=== PATIENT | female | born 1960 | race Caucasian/White ===

== ENCOUNTER → 2017-07-01 09:19 | Outpatient (CLI) | payer MEDICARE, SELFPAY ==
--- NOTE | 2017-07-01 09:45 | RAD_ITS ---
STUDY: X-RAY - THORACIC SPINE REASON FOR EXAM: 3, 56 years old. Fall 2-3 months ago. Increasing thoracic spine pain. TECHNIQUE: 3 view(s) of the thoracic spine were obtained. COMPARISON: Report of thoracic spine images dated January 06, 2010. FINDINGS: There is generalized osteopenia. Normal kyphosis of the thoracic spine. There is no substantial scoliosis. There is a new anterior wedge compression deformity of the T11 vertebral body, age undetermined. There is diffuse intervertebral disc space narrowing with osteophyte formation unchanged. There is an epidural stimulator unchanged in position. There is anterior fusion of the lower cervical spine unchanged. RAD/Thoracic Spine 3 Views IMPRESSION: Osteopenia with diffuse spondylosis and spinal stimulator. New anterior wedge compression deformity of T11, age undetermined. Electronically Signed: Jose Ramon Ojeda MD at 17:55 EST , Service support ,
--- NOTE | 2017-07-01 09:45 | RAD_ITS ---
STUDY: X-RAY - LUMBAR SPINE REASON FOR EXAM: Female, 56 years old. Pain after fall 2-3 months ago. TECHNIQUE: 3 view(s) of the lumbar spine were obtained. COMPARISON: CT of the lumbar spine dated December 29, 2014. FINDINGS: There is generalized osteopenia. There is posterior fusion from L4 to S1 with anterior intervertebral fusion at L4-5 and L5-S1, unchanged in position or alignment. There is diffuse facet sclerosis. There is moderate spondylosis of the lower thoracic region. There is an epidural catheter present and unchanged. RAD/Lumbar Spine 2 or 3 Views IMPRESSION: Stable postsurgical changes without complications. Generalized osteopenia with thoracolumbar spondylosis unchanged. No new or acute pathology. Electronically Signed: Jose Ramon Ojeda MD at 16:59 EST , Service support ,
[2017-07-01 10:56] LABS: Absolute Lymphocyte Count 1.43 X10^3/ul (0.83-4.51); Absolute Neutrophil Count 3.2 X10^3/uL (2.0-7.7); Basophil# 0.01 X10^3/uL; Basophil% 0.2 % (0-1); Eosinophil# 0.04 X10^3/uL; Eosinophils% 0.7 % (0-5); Hematocrit 43.1 % (37-47); Hemoglobin 13.8 g/dl (12.0-15.0); Lymphocyte # 1.43 X10^3/ul (4.0); Lymphocyte % 26.3 % (19-41); Mean Corpuscular Hgb 30.3 pg (27.0-32.0); Mean Corpuscular Volume 94.7 fL (81-99); Mean Platelet Vol. 8.6 fl (6.2-12.0); Monocyte# 0.69 X10^3/uL; Monocyte% 12.7 % (0-10); Neutrophil # 3.24 X10^3/uL (2.7-7.7); Neutrophil % 59.7 % (47-70); Platelet Count 302 K/mm3 (150-450); RBC Distribution Width CV 15.4 % (11.6-14.6); RBC Distribution Width SD 52.8 fl (35.1-43.9); Red Blood Count 4.55 M/mm3 (4.2-5.4); White Blood Count 5.4 K/mm3 (4.4-11.0)
[2017-07-01 11:07] LABS: POSITIVE COUNT NO; POSITIVE DIFFERENTIAL NO; POSITIVE MORPHOLOGY NO
[2017-07-01 11:30] LABS: AST(SGOT) 20 U/L (15-37); Alanine Aminotransfer ALT/SGPT 39 U/L (13-56); Albumin, Serum 3.7 g/dL (3.2-5.0); Alkaline Phosphatase 120 U/L (45-117); Anion Gap 7 (5-15); BUN 24 mg/dL (7-18); BUN/Creat Ratio 35.2 RATIO (10-20); Calcium,Total 8.2 mg/dL (8.5-10.1); Chloride 102 mmol/L (98-107); Creatinine, Serum 0.68 mg/dL (0.55-1.02); EST Glomerular Filtration Rate 95 mL/min (>60); Est Glom Filt Rate - Afr Amer 115 mL/min (>60); Globulin 3.7 g/dL (2.2-4.2); Glucose 120 mg/dL (74-106); Potassium 4.4 mmol/L (3.5-5.1); Protein, Total 7.4 g/dL (6.4-8.2); Sodium Level 139 mmol/L (136-145)
== END ==
PROVIDERS: Family Provider Internal Medicine; PCP Internal Medicine; Visit Provider Anesthesiology Pain Medicine
DX: M85.88 Other specified disorders of bone density and structure, other site (principal); M47.895 Other spondylosis, thoracolumbar region; G95.29 Other cord compression; M47.897 Other spondylosis, lumbosacral region; M06.09 Rheumatoid arthritis without rheumatoid factor, multiple sites; M79.7 Fibromyalgia; M18.0 Bilateral primary osteoarthritis of first carpometacarpal joints; I87.2 Venous insufficiency (chronic) (peripheral); Z79.899 Other long term (current) drug therapy
CPT/HCPCS: 36415; 72072; 72100; 80053; 85025

== ENCOUNTER → 2018-01-08 15:06 | Outpatient (CLI) | payer MEDICARE, SELFPAY ==
[2018-01-08 17:28] LABS: Absolute Lymphocyte Count 1.87 X10^3/ul (0.83-4.51); Absolute Neutrophil Count 2.5 X10^3/uL (2.0-7.7); Basophil# 0.02 X10^3/uL; Basophil% 0.4 % (0-1); Eosinophil# 0.16 X10^3/uL; Eosinophils% 3.1 % (0-5); Hematocrit 40.1 % (37-47); Hemoglobin 12.2 g/dl (12.0-15.0); Lymphocyte # 1.87 X10^3/ul (4.0); Lymphocyte % 36.4 % (19-41); Mean Corp Hgb Conc 30.4 g/gl (32-36); Mean Corpuscular Hgb 29.3 pg (27.0-32.0); Mean Corpuscular Volume 96.2 fL (81-99); Mean Platelet Vol. 8.9 fl (6.2-12.0); Monocyte% 11.7 % (0-10); Neutrophil # 2.48 X10^3/uL (2.7-7.7); Neutrophil % 48.2 % (47-70); Platelet Count 207 K/mm3 (150-450); RBC Distribution Width CV 12.9 % (11.6-14.6); RBC Distribution Width SD 43.9 fl (35.1-43.9); Red Blood Count 4.17 M/mm3 (4.2-5.4); White Blood Count 5.1 K/mm3 (4.4-11.0)
[2018-01-08 17:31] LABS: POSITIVE COUNT NO; POSITIVE DIFFERENTIAL NO; POSITIVE MORPHOLOGY NO
[2018-01-08 18:20] LABS: AST(SGOT) 26 U/L (15-37); Alanine Aminotransfer ALT/SGPT 41 U/L (13-56); Albumin, Serum 3.4 g/dL (3.2-5.0); Alkaline Phosphatase 124 U/L (45-117); Anion Gap 9 (5-15); BUN 22 mg/dL (7-18); BUN/Creat Ratio 35.7 RATIO (10-20); Calcium,Total 8.3 mg/dL (8.5-10.1); Chloride 103 mmol/L (98-107); Creatinine, Serum 0.62 mg/dL (0.55-1.02); EST Glomerular Filtration Rate 107 mL/min (>60); Est Glom Filt Rate - Afr Amer 129 mL/min (>60); Globulin 3.5 g/dL (2.2-4.2); Glucose 93 mg/dL (74-106); Potassium 3.9 mmol/L (3.5-5.1); Protein, Total 6.9 g/dL (6.4-8.2); Sodium Level 143 mmol/L (136-145)
== END ==
PROVIDERS: Family Provider Internal Medicine; PCP Internal Medicine; Visit Provider Internal Medicine Rheumatology
DX: M06.09 Rheumatoid arthritis without rheumatoid factor, multiple sites (principal); M79.7 Fibromyalgia; M18.0 Bilateral primary osteoarthritis of first carpometacarpal joints; M47.897 Other spondylosis, lumbosacral region; I87.2 Venous insufficiency (chronic) (peripheral); Z79.899 Other long term (current) drug therapy
CPT/HCPCS: 36415; 80053; 85025

== ENCOUNTER 2018-04-07 12:32 | Day surgery (SDC) | payer MEDICARE, SELFPAY ==
--- NOTE | 2018-04-05 08:25 | PCM.HP.BLA ---
History and Physical Date of Admission: 04/07/18 HISTORY AND PHYSICAL ? Soraya Gurrola 1960 ? REFERRING PHYSICIAN: ??Keren Bustamante MD ? CHIEF COMPLAINT: ??Consult (colonoscopy) ? HPI: The patient is a 57 year old female referred for endoscopy. ?Soraya notes history intermittent left lower quadrant discomfort, but also notes history of chronic back issues and thought the discomfort might be related to her back, states will feel like a spasm occasionally. ?She denies any change in bowel habits, weight changes, blood in stools, or black tarry stools. ?She denies any family history of colon cancer. ?The patient NOTES a history of acid reflux issues. ??States has been taking a PPI for some time with no improvement in symptoms. ?Denies prior EGD. ?Soraya has not?undergone prior colonoscopy. ? ? The patient is being seen by me today at the request of Dr. Bustamante?for my opinion and advice regarding screening colonoscopy. ?Patient's past medical history is significant for fibromyalgia, rheumatoid arthritis, lupus, osteoarthrosis. ?She follows with Dr. Bustamante for her chronic medical conditions and also follows with pain management-previously saw Dr. Polanco and now in the process of switching to Dr. Escobar. ?She denies any chest pain or shortness of breath. ?Notes she has had some nausea with anesthesia in the past but denies any other adverse reaction. ? ? PAST MEDICAL HISTORY PAST MEDICAL HISTORY Diagnosis Date ? Adjustment disorder with depressed mood ? ? Climacteric ? ? Esophageal reflux 08/19/2006 ? Fibromyalgia ? ? Generalized osteoarthrosis, unspecified site ? ? Insomnia, unspecified 08/19/2006 ? Lupus erythematosus ? ? Rheumatoid arthritis(714.0) ? ? Dr. Rojas treating ? Sciatica 08/19/2006 ? ? PAST SURGICAL HISTORY PAST SURGICAL HISTORY Procedure Laterality Date ? LAMINECTOMY,CERVICAL ? ? ? Laminectomy, cervical, c5=6 ? LAMINECTOMY,LUMBAR ? ? ? Laminectomy, lumbar l5 and s1 ? LIGATE FALLOPIAN TUBE ? 1985 ? Tubal ligation - tubal ? LUMBAR SPINE FUSION,ANTER APPRCH ? 05/14/11 ? 2 levels ? PAST SURGICAL HISTORY OF ? 01/25/2009 ? Hysteroscopy D&C ? PAST SURGICAL HISTORY OF ? 01/25/2009 ? Novasure Ablation ? PAST SURGICAL HISTORY OF ? 04/18/2010 ? Discogram of spine. ? PAST SURGICAL HISTORY OF ? 09/2009 ? Spinal stimulator--NO MRIs !!!! ? REDUCTION OF LARGE BREAST ? 06/2010 ? ? CURRENT MEDICATIONS ? Current Outpatient Prescriptions: oxyCODONE-acetaminophen (PERCOCET) 5-325 mg tablet Take by mouth once daily as needed. predniSONE (DELTASONE) 5 mg tablet Take 1 tablet by mouth once daily as needed (Rheumatoid Arthritis flare). cetirizine (ZYRTEC) 10 mg tablet Take 1 tablet by mouth once daily. May take one additional tablet daily as needed hydrOXYzine HCl (ATARAX) 25 mg tablet Take 1 tablet by mouth every 8 hours as needed. PARoxetine (PAXIL) 10 mg tablet Take 1 tablet by mouth once daily. esomeprazole (NEXIUM) 40 mg capsule Take 1 capsule by mouth twice daily before meals. gabapentin (NEURONTIN) 600 mg tablet Take 2 tablets by mouth three times daily. flurandrenolide (CORDRAN) 0.05 % lotion Apply 1 application to affected area twice daily. folic acid-B6-B12 (FOLBEE) 2.5-25-1 mg tab Take 1 tablet by mouth once daily. pregabalin (LYRICA) 100 mg capsule Take 2 capsules by mouth once daily. Dr. Rojas morphine SR (MS CONTIN, ORAMORPH SR) 15 mg 12 hr tablet Take 1 tablet by mouth twice daily. Dr. Polanco tiZANidine HCl 6 mg capsule Take 6 mg by mouth three times daily. zolpidem (AMBIEN) 5 mg tablet Take 1 tablet by mouth at bedtime as needed for Sedation. methotrexate, PF, 25 mg/mL Soln 0.75 ml weekly () abatacept (ORENCIA) 125 mg/mL Syrg Inject ?subcutaneously. ? Vitamin E 400 unit ORAL Tab Take ?by mouth. CALCIUM CARBONATE/VITAMIN D3 (CALCIUM 600 + D ORAL) Take ?by mouth. peg 3350-Electrolytes (GOLYTELY) 236-22.74-6.74 -5.86 gram suspension Take 4,000 mL by mouth one time only for 1 dose. oxyCODONE-acetaminophen (PERCOCET) 5-325 mg tablet Take 1 tablet by mouth twice daily for 30 days.Earliest Fill Date: 11/28/17 ? No current facility-administered medications for this visit. ? ALLERGIES: Adhesive; Celexa [Citalopram]; Codeine; Doxycycline ? PERSONAL HISTORY: SOCIAL HISTORY Social History ??Marital status: Unknown ?Spouse name: ?Years of education: 12 ?Number of children: 0 ? 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 Social History Main Topics ??Smoking status: Former Smoker ?Packs/day: 0.50 ?Years: 22.00 ?Types: Cigarettes ?Quit date: 12/06/2016 ??Smokeless tobacco: Never Used ?Comment: 3 cigarettes per day ??Alcohol use: No ?Drug use: No ?Sexual activity: Yes ?Partners with: Male ? control/protection: Tubal Ligation ? ? FAMILY HISTORY: FAMILY HISTORY FAMILY HISTORY Problem Relation Age of Onset ? Thyroid Mother ?hypothyroid, obese, hypertension, ? Diabetes Mother ?type II ? Diabetes Father ?depression, hypertension,one lobe removed from lung valvue replacement; type 2 DM ? Hypertension Paternal Grandmother ?valvue replacement, colostomy bag ?because colon ca ? Thyroid Sister ?over active thyroid, hypertension ? REVIEW OF SYMPTOMS: ??The review of systems data was entered by the nurse and reviewed by me ? Nursing Notes: Keiry Muñoz RN ?02/27/2018 ?3:41 PM ?Signed REVIEW OF SYSTEMS: ?General:???The patient notes fatigue, denies weight loss, denies weight gain, notes feeling hot, and denies feelings of cold. ?Eyes: ?The patient denies glaucoma, denies eye injury/surgery, wears glasses or contacts. ?Ear/Nose/Throat: ?The patient denies allergies, denies hayfever, denies ear infections, and denies bloody noses. ?Cardiovascular: ?The patient denies chest pain, denies heart disease, denies high blood pressure,denies cardiac stent, denies prior heart attack, denies irregular heart beat, denies high cholesterol, ?denies poor circulation, denies heart failure, other cardiac issues, notes claudication, notes cold feet, denies peripheral arterial stent. ?Respiratory: ?The patient denies tuberculosis, denies pneumonia, denies frequent cough, denies pulmonary embolism, denies shortness of breath, and denies coughing up blood. ?Gastrointestinal: ?The patient denies difficulty swallowing, notes acid reflux, denies ulcers, denies vomiting, denies jaundice/hepatitis, denies gallbladder problems, denies black or tarry stools, denies hemorrhoids, denies bleeding from rectum, denies diverticulitis, denies constipation, denies diarrhea, denies loss of stool control, and denies hernias. ?Kidney/Bladder: ?The patient denies kidney stones, denies urine infections, and denies bloody urine. ?Skin: ?The patient denies a history of skin cancer, denies bleeding/changing moles, and denies a history of skin rash. ?Neurologic: ?The patient denies a history of epilepsy/convulsions, denies headaches, denies head/spinal injuries, and denies stroke/TIA. ?Psychiatric: ?The patient denies psychiatric medications, denies depression, and denies voices, denies substance abuse. ?Endocrine: ?The patient denies thyroid disorders, denies diabetes, and denies hormonal problems. ?Hematologic: ?The patient denies a history of bruising, denies bleeding, and denies anemia, denies blood clots. ?Infections: ?The patient notes a history of measles and mumps, denies rheumatic fever, and denies sexually transmitted diseases. ?Musculoskeletal: ?The patient notes back pain/injury, notes back problems, denies sciatica, denies knee/foot trouble, NOTES arthritis, or denies gout. ? ? When was patient's last Mammogram screening? 09/02/2017 ? ?Last Colonoscopy: ?never ? Keiyr Muñoz RN? I have confirmed and edited as necessary, the PFSH and ROS obtained by others. ? ? PHYSICAL EXAMINATION: ? General: ?The patient is 57 year old female, well nourished, well hydrated in no acute distress. ?The patient is oriented to time, place, and person. ? VITALS: Blood pressure 166/81, pulse 101, weight 91.8 kg (202 lb 6.4 oz), SpO2 97 %.?Body mass index is 35.85 kg/m?.? ? HEENT: ?Normal cephalic, ataumatic, pupils are equally round, sclera are anicteric, mucous membranes are moist, oropharynx is clear. ?Neck has no masses, asymmetry or lymphadenopathy. ? ? Respiratory: ?Clear to auscultation and percussion. ?Normal respiratory excursion and pattern. ? Cardiac: ?Examination is regular rate and rhythm. ?Normal S1/S2 ? Abdominal exam: ?Soft, nontender, ?with no palpable masses. ?No hepatosplenomegaly. ?No palpable hernias. ? Rectal exam: exam deferred ? Extremities: ?no clubbing, cyanosis or edema. ?No adenopathy. ? Other: ? LABORATORY VALUES: As Noted ? RADIOLOGIC STUDIES: ?As Noted ? ? Assessment ? IMPRESSION: encounter for screening colonoscopy. ?GERD resistant to PPI, would recommend EGD in addition to the colonoscopy ? PLAN: ?We will plan for upper and lower endoscopy. ?We discussed the risks and benefits of the planned endoscopy. ?I have informed the patient that complications can occur including failure to complete the endoscopy and perforation. ?The patient had the opportunity to ask questions concerning the planned endoscopy. ?My staff has also explained the procedure to the patient in understandable terms and has given the patient printed material concerning the procedure. ?The patient freely consents to surgery. ? I plan to use golytely bowel preparation for endoscopy ? The patient takes prescription medications which I feel decrease the chance of successful sedation. ?I therefore plan for monitored anesthetic care. ? Diagnoses: (K21.9) Gastroesophageal reflux disease, esophagitis presence not specified ?(primary encounter diagnosis) (Z12.11) Encounter for screening for malignant neoplasm of colon ? My findings have been communicated to Dr. Bustamante?via shared medical record. ?This note will be forwarded to Dr. Keren Bustamante MD. ?? Return to Clinic: The patient is instructed to follow-up with me 1 week post operatively. ? Meghna Chavarria PA-C
[2018-04-07] VITALS (8 sets, daily range): BP systolic 141–174; BP diastolic 74–109; PULSE 72–83; RESP 16–18; TEMP 35.8–36.2; O2SAT 95–98; BMI 36.1
--- NOTE | 2018-04-07 | GASB_PTH ---
PATIENT: PARADISE FAUST LOC: EN U#:[id number] AGE/SX: 57/F ROOM: RE04/07/[address]: Dr. Larry Guadalupe MD : 1960 BED: DIS: 04/07/2018 SPEC #: [id number] RECD: 04/08/18 13:14 STATUS: HUNTER DANICA #: [id number] KAILEE: 04/07/18 00:[address]: Larry Guadalupe DEPT: SURGICAL PATHOLOGY RECD BY: Connor León ENTERED: 04/08/18 13:14 SP TYPE: Gastric Bx OTHR DR: Dr. Keren Bustamante MD Tissues: A - Gastric mucous membrane B - Gastric mucous membrane Procedures: Surgery Specimen Level IV HEADER OPERATION: Colonoscopy, EGD ([facility] [place] PRE-OP DIAGNOSIS: GERD resistant to PPI, screening colonoscopy TISSUE SUBMITTED: A - Antrum biopsy for H. pylori and path, B - GE junction biopsy MICROSCOPIC DIAGNOSIS A. Gastric antrum, biopsy: Mild chronic gastritis. B. Gastroesophageal junction, biopsy: Mild chronic inflammation. CAMRON:maría 04/09/18 COMMENT A. The results of immunohistochemistry for Helicobacter pylori will be reported separately ([id number]). MICROSCOPIC DESCRIPTION Slides are reviewed. GROSS DESCRIPTION A - Received in fixative is one container labeled with the patient's name and designated antral biopsy for H. pylori and path. The specimen consists of one irregular fragment of light gilbert soft tissue that measures 0.3 x 0.2 x 0.1 cm. The specimen is totally submitted in one cassette. B - Received in fixative is one container labeled with the patient's name and designated GE junction biopsy. The specimen consists of one irregular fragment of light gilbert soft tissue that measures 0.6 x 0.1 x 0.1 cm. The specimen is totally submitted in one cassette. / CAMRON:maría 04/08/18 TC:3 CPT: 19276 x2
--- NOTE | 2018-04-07 14:00 | IMM_PTH ---
PATIENT: PARADISE FAUST LOC: EN U#:[id number] AGE/SX: 57/F ROOM: RE04/07/[address]: Dr. Larry Guadalupe MD : 1960 BED: DIS: 04/07/2018 SPEC #: [id number] RECD: 04/08/18 14:06 STATUS: HUNTER REOmayra #: [id number] KAILEE: 04/07/18 14:[address]: Larry Guadalupe DEPT: IMMUNOHISTOCHEMISTRY RECD BY: Shannon Lancaster ENTERED: 04/08/18 14:06 SP TYPE: IMMUNO OTHR DR: Dr. Keren Bustamante MD Tissues: A - Stomach, NOS Procedures: H Pylori (initial) PHYSICIAN & INSTITUTION [place] [id number] SPECIMEN INFORMATION: Tissue Source: A - Antrum biopsy Clinical Info: GERD, resistant to PPI, screening Specimen Number: [id number] CPT code: 37606 METHODOLOGY: Deparaffinized sections of prefer/formalin-fixed tissue or PAP/DQ stained slides are incubated with monoclonal/polyclonal antibodies/oligonucleotide probes. Localization is made via biotin free immunoperoxidase method. Appropriate controls are performed and reacted as expected. Results on target cell population are indicated in the following table: RESULTS: ANTIBODY / CLONE RESULT Block A H Pylori (polyclonal) negative These tests were developed and their performance characteristics determined by [facility]. They may not have been cleared or approved by the U.S. Food and Drug Administration. The FDA has determined that such clearance or approval is not necessary. INTERPRETATION: A. Antrum, biopsy: Negative for Helicobacter pylori organisms. AM:maría 04/09/18
--- NOTE | 2018-04-07 15:33 | OP.ENDO_ITS ---
Patient Name: Soraya Cedeño Procedure Date: 04/07/2018 2:26 PM Date of : 1960 Age: 57 Procedure: Upper GI endoscopy Indications: Follow-up of gastro-esophageal reflux disease Providers: Larry Guadalupe MD Medicines: Monitored Anesthesia Care Patient Profile: This is a 57 year old female. Refer to note in patient chart for documentation of history and physical. Complications: No immediate complications. Procedure: Pre-Anesthesia Assessment: - Prior to the procedure, a History and Physical was performed, and patient medications and allergies were reviewed. The patient is competent. The risks and benefits of the procedure and the sedation options and risks were discussed with the patient. All questions were answered and informed consent was obtained. Patient identification and proposed procedure were verified by the physician and the nurse in the procedure room. Mental Status Examination: alert and oriented. Airway Examination: normal oropharyngeal airway and neck mobility. Respiratory Examination: clear to auscultation. CV Examination: normal. Prophylactic Antibiotics: The patient does not require prophylactic antibiotics. Prior Anticoagulants: The patient has taken no previous anticoagulant or antiplatelet agents. ASA Grade Assessment: III - A patient with severe systemic disease. After reviewing the risks and benefits, the patient was deemed in satisfactory condition to undergo the procedure. The anesthesia plan was to use monitored anesthesia care (MAC). Immediately prior to administration of medications, the patient was re-assessed for adequacy to receive sedatives. The heart rate, respiratory rate, oxygen saturations, blood pressure, adequacy of pulmonary ventilation, and response to care were monitored throughout the procedure. The physical status of the patient was re-assessed after the procedure. After obtaining informed consent, the endoscope was passed under direct vision. Throughout the procedure, the patient's blood pressure, pulse, and oxygen saturations were monitored continuously. The gastroscope was introduced through the mouth, and advanced to the jejunum. The upper GI endoscopy was accomplished without difficulty. Scope In: 2:45:13 PM Scope Out: 2:49:01 PM Total Procedure Duration Time 0 hours 3 minutes 48 seconds Findings: The examined jejunum was normal. The examined duodenum was normal. Minimal inflammation characterized by erythema was found in the gastric antrum. Biopsies were taken with a cold forceps for histology. A medium-sized hiatal hernia was present. Non-severe esophagitis with no bleeding was found. Biopsies were taken with a cold forceps for histology. Impression: - Normal examined jejunum. - Normal examined duodenum. - Gastritis. Biopsied. - Medium-sized hiatal hernia. - Non-severe reflux esophagitis. Biopsied. Recommendation: - Return to physician automobile mechanic assistant in 1 week. - Continue present medications. Procedure Code(s): --- Professional --- 64830, Esophagogastroduodenoscopy, flexible, transoral; with biopsy, single or multiple CPT copyright 2017 [employer]. All rights reserved. The codes documented in this report are preliminary and upon childrens club attendant review may be revised to meet current compliance requirements. Larry Guadalupe MD 04/07/2018 3:33:26 PM This report has been signed electronically. Number of Addenda: 0 Note Initiated On: 04/07/2018 2:26 PM
--- NOTE | 2018-04-07 15:36 | OP.ENDO_ITS ---
Patient Name: Soraya Cedeño Procedure Date: 04/07/2018 2:50 PM Date of : 1960 Age: 57 Procedure: Colonoscopy Indications: Screening for colorectal malignant neoplasm Providers: Larry Guadalupe MD Medicines: Monitored Anesthesia Care Patient Profile: This is a 57 year old female. Refer to note in patient chart for documentation of history and physical. Last Colonoscopy: none. The patient's first colonoscopy is today. Complications: No immediate complications. Procedure: Pre-Anesthesia Assessment: - Prior to the procedure, a History and Physical was performed, and patient medications and allergies were reviewed. The patient is competent. The risks and benefits of the procedure and the sedation options and risks were discussed with the patient. All questions were answered and informed consent was obtained. Patient identification and proposed procedure were verified by the physician and the nurse in the procedure room. Mental Status Examination: alert and oriented. Airway Examination: normal oropharyngeal airway and neck mobility. Respiratory Examination: clear to auscultation. CV Examination: normal. Prophylactic Antibiotics: The patient does not require prophylactic antibiotics. Prior Anticoagulants: The patient has taken no previous anticoagulant or antiplatelet agents. ASA Grade Assessment: III - A patient with severe systemic disease. After reviewing the risks and benefits, the patient was deemed in satisfactory condition to undergo the procedure. The anesthesia plan was to use monitored anesthesia care (MAC). Immediately prior to administration of medications, the patient was re-assessed for adequacy to receive sedatives. The heart rate, respiratory rate, oxygen saturations, blood pressure, adequacy of pulmonary ventilation, and response to care were monitored throughout the procedure. The physical status of the patient was re-assessed after the procedure. After I obtained informed consent, the scope was passed under direct vision. Throughout the procedure, the patient's blood pressure, pulse, and oxygen saturations were monitored continuously. The colonoscope was introduced through the anus and advanced to the cecum, identified by the appendiceal orifice, ileocecal valve and palpation. The colonoscopy was performed without difficulty. The patient tolerated the procedure well. The quality of the bowel preparation was good. Scope In: 2:51:34 PM Scope Withdrawal Time 0 hours 18 minutes 0 seconds Scope Out: 3:25:38 PM Total Procedure Duration Time 0 hours 34 minutes 4 seconds Findings: The perianal and digital rectal examinations were normal. The entire examined colon appeared normal on direct and retroflexion views. Impression: - The entire examined colon is normal on direct and retroflexion views. - No specimens collected. Recommendation: - Discharge patient to home. - Resume previous diet. - Continue present medications. - Repeat colonoscopy in 10 years for screening purposes. Larry Guadalupe MD 04/07/2018 3:35:40 PM This report has been signed electronically. Number of Addenda: 0 Note Initiated On: 04/07/2018 2:50 PM
== END 2018-04-07 16:40 | disposition home or self-care (01) ==
LOC: EN 12:34 → AC 12:36
PROVIDERS: Family Provider Internal Medicine; PCP Internal Medicine; Referring Provider Surgery; Visit Provider Surgery
PROC: 0DJD8ZZ Inspection of Lower Intestinal Tract, Via Natural or Artificial Opening Endoscopic (ICD-10-PCS; CPT 45378; principal; 2018-04-07 13:55)
DX: K21.0 Gastro-esophageal reflux disease with esophagitis (principal); K29.50 Unspecified chronic gastritis without bleeding; K44.9 Diaphragmatic hernia without obstruction or gangrene; Z12.11 Encounter for screening for malignant neoplasm of colon; M79.7 Fibromyalgia; M15.9 Polyosteoarthritis, unspecified; M06.9 Rheumatoid arthritis, unspecified; M32.9 Systemic lupus erythematosus, unspecified; Z98.1 Arthrodesis status; Z79.891 Long term (current) use of opiate analgesic; Z79.899 Other long term (current) drug therapy; Z87.891 Personal history of nicotine dependence
CPT/HCPCS: 43239; G0121; 88305; 88342; J7120

== ENCOUNTER → 2018-04-08 11:30 | Outpatient (CLI) | payer MEDICARE, SELFPAY ==
[2018-04-07 12:56] VITALS: BMI 36.1
[2018-04-08 12:25] LABS: Absolute Lymphocyte Count 1.08 X10^3/ul (0.83-4.51); Absolute Neutrophil Count 2.3 X10^3/uL (2.0-7.7); Basophil# 0.01 X10^3/uL; Basophil% 0.3 % (0-1); Eosinophil# 0.09 X10^3/uL; Eosinophils% 2.3 % (0-5); Hematocrit 40.4 % (37-47); Hemoglobin 12.5 g/dl (12.0-15.0); Lymphocyte # 1.08 X10^3/ul (4.0); Lymphocyte % 27.6 % (19-41); Mean Corp Hgb Conc 30.9 g/gl (32-36); Mean Corpuscular Hgb 28.9 pg (27.0-32.0); Mean Corpuscular Volume 93.5 fL (81-99); Mean Platelet Vol. 8.2 fl (6.2-12.0); Monocyte# 0.42 X10^3/uL; Monocyte% 10.7 % (0-10); Neutrophil % 58.8 % (47-70); Platelet Count 211 K/mm3 (150-450); RBC Distribution Width CV 13.3 % (11.6-14.6); Red Blood Count 4.32 M/mm3 (4.2-5.4); White Blood Count 3.9 K/mm3 (4.4-11.0)
[2018-04-08 12:35] LABS: POSITIVE COUNT NO; POSITIVE DIFFERENTIAL NO; POSITIVE MORPHOLOGY NO
[2018-04-08 13:00] LABS: ALB/GLOB Ratio 0.9 RATIO (0.9-2.4); AST(SGOT) 18 U/L (15-37); Alanine Aminotransfer ALT/SGPT 32 U/L (13-56); Albumin, Serum 3.3 g/dL (3.2-5.0); Alkaline Phosphatase 124 U/L (45-117); Anion Gap 9 (5-15); BUN 19 mg/dL (7-18); BUN/Creat Ratio 28.4 RATIO (10-20); Calcium,Total 8.7 mg/dL (8.5-10.1); Chloride 104 mmol/L (98-107); Creatinine, Serum 0.67 mg/dL (0.55-1.02); EST Glomerular Filtration Rate 97 mL/min (>60); Est Glom Filt Rate - Afr Amer 118 mL/min (>60); Globulin 3.6 g/dL (2.2-4.2); Glucose 117 mg/dL (74-106); Potassium 3.6 mmol/L (3.5-5.1); Protein, Total 6.9 g/dL (6.4-8.2); Sodium Level 143 mmol/L (136-145)
--- OUTSIDE RECORDS SUMMARY | 2018-05-25 12:44 | XMS RPT_ITS ---
:1960 Author Organization [facility] Care Team Providers Name Role Phone CHERYL ADAMS (SQL REPORT WRITER) Referring Unavailable ADAMS, CHERYL (SQL REPORT WRITER) Referring Unavailable VIVIAN LIU (RD) Attending Unavailable ADAMSGAUTAMI (SQL REPORT WRITER) Referring Unavailable JERI ALEJANDRE ([facility]) Attending Unavailable ADAMSGAUTAMI (SQL REPORT WRITER) Referring Unavailable JERI ALEJANDRE ([facility]) Referring Unavailable ADAMS CHERYL (SQL REPORT WRITER) Referring Unavailable JERI ALEJANDRE ([facility]) Referring Unavailable JERI ALEJANDRE ([facility]) Referring Unavailable JERI ALEJANDRE ([facility]) Attending Unavailable JERI ALEJANDRE ([facility]) Referring Unavailable JERI ALEJANDRE ([facility]) Referring Unavailable JERI ALEJANDRE ([facility]) Referring Unavailable MEGHNA CHAVARRIA (PA) Attending Unavailable TALAMPAS, JAMES Dioni Referring Unavailable FRAN KRISHNAMURTHY Referring Unavailable ADAMS, CHERYL (SQL REPORT WRITER) Attending Unavailable TALAMPAS, JAMES D Referring Unavailable VellankiCodima Attending Unavailable Dorothea Rojas Referring Unavailable Talampas, James Primary Care Unavailable Felicitas Polanco Attending Unavailable Felicitas Polanco Referring Unavailable Talampas, James Primary Care Unavailable Dorothea Rojas Consulting Unavailable Dorothea Rojas Attending Unavailable Dorothea Rojas Referring Unavailable Talampas, James Primary Care Unavailable Justin Earl Attending Unavailable Justin Earl Referring Unavailable James Bustamante Primary Care Unavailable PROBLEMS PROBLEMS DATE TYPE CONDITION / CODE ATTENDING STATUS SOURCE 03/03/2018 Active Unknown / NA Active [facility] UNK(Unknown) [facility] Main [place] Repository 12/13/2017 Active Personal history of NA Active [facility] other diseases of the Clinic Main female genital tract [place] / Z87.42(ICD-10) Repository 12/12/2017 Active Pelvic and perineal NA Active [facility] pain / R10.2(ICD-10) Clinic Main [place] Rep[place] 12/12/2017 Active Left lower quadrant NA Active [facility] pain / R10.32(ICD-10) Clinic Main [place] Rep[place] 12/04/2017 Active Hyperlipidemia, NA Active [facility] unspecified / Clinic Main E78.5(ICD-10) [place] Repository 12/04/2017 Active Other abnormal NA Active [facility] glucose / Clinic Main R73.09(ICD-10) [place] Repository 12/04/2017 Active Encounter for NA Active [facility] therapeutic drug Clinic Main level monitoring / [place] Z51.81(ICD-10) Repository 12/04/2017 Active Other specified NA Active [facility] abnormal findings of Clinic Main blood chemistry / [place] R79.89(ICD-10) Repository 11/28/2017 Active Pain in left lower NA Active [facility] leg / M79.662(ICD-10) Clinic Main [place] Rep[place] 02/26/2017 Active Rheumatoid arthritis, NA Active [facility] unspecified / Clinic Main M06.9(ICD-10) [place] Repository 08/19/2006 Active Discoid lupus NA Active [facility] erythematosus / Clinic Main L93.0(ICD-10) [place] Repository 09/02/2017 Active Family history of NA Active [facility] other endocrine, Clinic Main nutritional and [place] metabolic diseases / Repository Z83.49(ICD-10) 09/02/2017 Active Encounter for NA Active [facility] screening for lipoid Clinic Main disorders / [place] Z13.220(ICD-10) Repository 09/02/2017 Active Encounter for NA Active [facility] screening for Clinic Main diabetes mellitus / [place] Z13.1(ICD-10) Repository 09/02/2017 Active Encounter for NA Active [facility] screening mammogram Clinic Main for malignant [place] neoplasm of breast / Repository Z12.31(ICD-10) 07/01/2017 Unknown M06.09 - Rheumatoid Basali, Ayman Active [place] arthritis without Community rheumatoid factor, [facility] multiple sites / Repository M06.09(ICD-10) 07/01/2017 Unknown Z79.899 - Other long Basali, Felicitas Active [place] term (current) drug [facility] therapy / Hospital Z79.899(ICD-10) Repository 07/01/2017 Unknown M79.7 - Fibromyalgia Basali, Felicitas Active [place] / M79.7(ICD-10) [facility] Hospital Repository 07/01/2017 Unknown M18.0 - Bilateral Basali, Ayman Active [place] primary Community osteoarthritis of Hospital first carpometacarpal Repository joints / M18.0(ICD-10) 07/01/2017 Unknown 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, 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, [facility] unspecified / Hospital M15.9(ICD-10) Repository 07/01/2017 Unknown M47.897 - Other Basali, Felicitas Active [place] spondylosis, [facility] lumbosacral region / Hospital M47.897(ICD-10) Repository 07/01/2017 Unknown 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, 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 [facility] (chronic) Hospital (peripheral) / Repository I87.2(ICD-10) PROCEDURES PROCEDURES No Procedure Records FoundRESULTS RESULTS CNOV Observed: 05/08/2018 Status: COMPLETED Source: [place] 1:00 PM [facility] REPOSITORY Office Visit (INTMWS) SORAYA FAUST ([id number]) 1960 F Date Time Provider Department 05/08/18 1:00 PM CHERYL ADAMS (LEONARD) INTMWS During your visit today, we recorded the following information about you: Pulse Respiration Blood pressure Weight 92/minute 16/minute 138/74 92.1 kg Cheryl Adams APRN.CNS 05/08/2018 1:58 PM Signed This note was created using NoteWriter. Subjective Soraya Aguilar Galileo is a 57 year old female. HPI She is a history of rheumatoid arthritis and lupus, followed by wet machine tender Dr. Rojas. She reports adequate pain relief for her lupus and rheumatoid arthritis. She is primarily concerned about pain in her cervical and lumbar spine today. She has history of previous cervical and lumbar spinal fusions. She has been seeing local pain management physicians who have recommended injections in her spine for back pain. She has not found these spinal injections have not been very helpful for pain. She continues to note restricted motion of her cervical spine along with pain and pain in her lumbar spine as well. Intermittently does use prednisone which helps a bit with pain. Continues with Tylenol as needed for pain. Gabapentin also help somewhat. She reports x-rays completed of cervical and lumbar spine last year, reports CT of spine at [facility] 2017. She cannot have MRIs completed due to an implanted pain device in her lumbar spine. Previous pain management doctors Dr. Polanco and Dr. Escobar at [facility]. She would like to have other options available to her, requests recommendations. See [employer] message date 05/05/2018. Review of Systems Constitutional: Negative for activity change, appetite change, chills, diaphoresis and fever. Respiratory: Negative for choking, chest tightness, shortness of breath and wheezing. Cardiovascular: Negative for chest pain, palpitations and leg swelling. Musculoskeletal: Positive for back pain. Neurological: Negative for dizziness, light-headedness and numbness. Objective BP 138/74 (BP Site: Left Arm, BP Position: Sitting, BP Cuff Size: Large Adult) Pulse 92 Resp 16 Wt 92.1 kg (203 lb) BMI 35.96 kg/m? Physical Exam Constitutional: She is oriented to person, place, and time. She appears well-developed and well-nourished. HENT: Head: Normocephalic. Neck: Muscular tenderness present. Decreased range of motion (cervical and lumbar spine) present. No edema and no erythema present. Cardiovascular: Normal rate and regular rhythm. Pulmonary/Chest: Effort normal. Musculoskeletal: She exhibits tenderness (cervical and lumbar spine) and deformity. Neurological: She is alert and oriented to person, place, and time. Skin: Skin is warm and dry. Psychiatric: She has a normal mood and affect. Nursing note and vitals reviewed. [facility] XR 2018 LUMBAR SPINE 2 OR 3 VIEWS Observed: 07/01/2017 9:45 AM Status: F Source: [facility] Imaging Services [address] [place] [address] Lumbar Spine 2 or 3 Views MR#: [id number] Acct: [id number] Name: SORAYA FAUST Rep #: [id number] : 1960 F 56 From: Jose Ramon Ojeda MD PCP: James Bustamante MD Status: REG CLI Study: Lumbar Spine 2 or 3 Views Date of Exam: 07/01/17 Exam# [id number] Ordering Dr: Felicitas Polanco MD STUDY: X-RAY - LUMBAR SPINE REASON FOR EXAM: Female, 56 years old. Pain after fall 2-3 months ago. TECHNIQUE: 3 view(s) of the lumbar spine were obtained. COMPARISON: CT of the lumbar spine dated December 29, 2014. FINDINGS: There is generalized osteopenia. There is posterior fusion from L4 to S1 with anterior intervertebral fusion at L4-5 and L5-S1, unchanged in position or alignment. There is diffuse facet sclerosis. There is moderate spondylosis of the lower thoracic region. There is an epidural catheter present and unchanged. RAD/Lumbar Spine 2 or 3 Views IMPRESSION: Stable postsurgical changes without complications. Generalized osteopenia with thoracolumbar spondylosis unchanged. No new or acute pathology. Electronically Signed: Jose Ramon Ojeda MD at 16:59 EST , Service support , CC: Felicitas Polanco MD; James Bustamante MD 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Signed THORACIC SPINE 3 VIEWS Observed: 07/01/2017 9:45 AM Status: F Source: [facility] Imaging Services [address] [place] [id number] Thoracic Spine 3 Views MR#: [id number] Acct: [id number] Name: SORAYA FAUST Rep #: [id number] : 1960 F 56 From: Jose Ramon Ojeda MD PCP: James Bustamante MD Status: REG CLI Study: Thoracic Spine 3 Views Date of Exam: 07/01/17 Exam# [id number] Ordering Dr: Felicitas Polanco MD STUDY: X-RAY - THORACIC SPINE REASON FOR EXAM: 3, 56 years old. Fall 2-3 months ago. Increasing thoracic spine pain. TECHNIQUE: 3 view(s) of the thoracic spine were obtained. COMPARISON: Report of thoracic spine images dated January 06, 2010. FINDINGS: There is generalized osteopenia. Normal kyphosis of the thoracic spine. There is no substantial scoliosis. There is a new anterior wedge compression deformity of the T11 vertebral body, age undetermined. There is diffuse intervertebral disc space narrowing with osteophyte formation unchanged. There is an epidural stimulator unchanged in position. There is anterior fusion of the lower cervical spine unchanged. RAD/Thoracic Spine 3 Views IMPRESSION: Osteopenia with diffuse spondylosis and spinal stimulator. New anterior wedge compression deformity of T11, age undetermined. 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Signed ALLERGIES Allergen Reactions - Adhesive Rash - Celexa [Citalopram] GI Upset - Codeine Motion kind of sickness - Doxycycline GI Upset Current Outpatient Prescriptions: nabumetone (RELAFEN) 750 mg tablet Take 750 mg by mouth twice daily. gabapentin (NEURONTIN) 600 mg tablet Take 2 tablets by mouth three times daily for 180 days. PARoxetine (PAXIL) 10 mg tablet Take 1 tablet by mouth once daily. esomeprazole (NEXIUM) 40 mg capsule TAKE ONE CAPSULE BY MOUTH TWICE DAILY BEFORE MEALS hydrOXYzine HCl (ATARAX) 25 mg tablet Take 2-3 tabs every 8 hours as needed for itching. cetirizine (ZYRTEC) 10 mg tablet Take 1 tablet by mouth once daily. May take one additional tablet daily as needed folic acid-B6-B12 (FOLBEE) 2.5-25-1 mg tab Take 1 tablet by mouth once daily. methotrexate, PF, 25 mg/mL Soln 0.75 ml weekly () abatacept (ORENCIA) 125 mg/mL Syrg Inject subcutaneously. Vitamin E 400 unit ORAL Tab Take by mouth. CALCIUM CARBONATE/VITAMIN D3 (CALCIUM 600 + D ORAL) Take by mouth. predniSONE (DELTASONE) 5 mg tablet Take 1 tablet by mouth once daily as needed (Rheumatoid Arthritis flare). tiZANidine (ZANAFLEX) 4 mg tablet Take 1 tablet by mouth every 6 hours as needed. for muscle spasms flurandrenolide (CORDRAN) 0.05 % lotion Apply 1 application to affected area twice daily. (Patient not taking: Reported on 05/08/2018 ) zolpidem (AMBIEN) 5 mg tablet Take 1 tablet by mouth at bedtime as needed for Sedation. No current facility-administered medications for this visit. PAST MEDICAL HISTORY Diagnosis Date - Adjustment disorder with depressed mood - Climacteric - Esophageal reflux 08/19/2006 - Fibromyalgia - Generalized osteoarthrosis, unspecified site - Insomnia, unspecified 08/19/2006 - Lupus erythematosus - Rheumatoid arthritis(714.0) Dr. 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 Other chronic pain - ICD9: 338.29, ICD10: G89.29 (primary diagnosis) - CONSULT TO PAIN MGT ANESTHESIA 2. Rheumatoid arthritis, involving unspecified site, unspecified rheumatoid factor presence (HCC) - ICD9: 714.0, ICD10: M06.9 3. Lupus erythematosus, unspecified form - ICD9: 695.4, ICD10: L93.0 Will continue with current wet machine tender 4. Sciatica, unspecified laterality - ICD9: 724.3, ICD10: M54.30 - CONSULT TO PAIN MGT ANESTHESIA 5. Systemic lupus erythematosus, unspecified SLE type, unspecified organ involvement status (HCC) - ICD9: 710.0, ICD10: M32.9 - CONSULT TO PAIN MGT ANESTHESIA - PREDNISONE 5 MG TABLET 6. History of spinal fusion - ICD9: V45.4, ICD10: Z98.1 - GABAPENTIN 600 MG TABLET - [facility]ULT TO [facility] - TIZANIDINE 4 MG TABLET Recommend she consider seeing a vehicle care specialist as well as a pain specialist as she is primarily having pain in her spine in areas of prior surgeries. Status post cervical lumbar spinal fusions. May need imaging of cervical, thoracic and lumbar spine. Recommendation she continue with current medications for now. She may try increasing dose of prednisone, continue with gabapentin and Tylenol and tizanidine as needed Provided with information regarding specialist, Dr. Bustamante in [place], Dr. Escobar at [facility], and spine Center at [facility] if she so desires. Recommend she make an appointment with James Bustamante MD, last seen 2014. Cheryl Adams APRN.SQL REPORT WRITER May 08, 2018 Referring Provider: JAMES BUSTAMANTE [[id number]] Allergies As of Date: 05/08/2018 Noted Allergy Reaction ADHESIVE 03/05/2011 2 - Rash CELEXA (CITALOPRAM) 01/07/2009 8 - GI Upset CODEINE 08/19/2006 Comments: Motion kind of sickness DOXYCYCLINE 04/01/2009 8 - GI Upset Date Reviewed: 05/08/2018 Reviewed by: Princess Vance LPN - Fully Assessed Reason for Visit: Medication Follow-up [270] Cmt: pain management referral Primary Visit Diagnosis:Other chronic pain [G89.29] Other Visit Diagnoses:Rheumatoid arthritis, involving unspecified site, unspecified rheumatoid factor presence (HCC) [M06.9] Lupus erythematosus, unspecified form [L93.0] Sciatica, unspecified laterality [M54.30] Systemic lupus erythematosus, unspecified SLE type, unspecified organ involvement status (HCC) [M32.9] History of spinal fusion [Z98.1] Order(s):CONSULT TO PAIN MGT ANESTHESIA [19990804] Order #: [id number]: 1 predniSONE (DELTASONE) 5 mg tabletTake 1 tablet by mouth once daily as needed (Rheumatoid Arthritis flare).Disp: 30 tabletRfl: 0 gabapentin (NEURONTIN) 600 mg tabletTake 2 tablets by mouth three times daily for 180 days.Disp: 540 tabletRfl: 3 CONSULT TO [facility] [19990729] Order #: [id number]: 1 PARoxetine (PAXIL) 10 mg tabletTake 1 tablet by mouth once daily.Disp: 90 tabletRfl: 3 tiZANidine (ZANAFLEX) 4 mg tabletTake 1 tablet by mouth every 6 hours as needed. for muscle spasmsDisp: 30 tabletRfl: 1 Prescriptions as of 05/08/2018 Sig: NABUMETONE 750 MG TABLET Take 750 mg by mouth twice da* GABAPENTIN 600 MG TABLET Take 2 tablets by mouth three* PAROXETINE 10 MG TABLET Take 1 tablet by mouth once d* ESOMEPRAZOLE MAGNESIUM 40 MG * TAKE ONE CAPSULE BY MOUTH TWI* HYDROXYZINE HCL 25 MG TABLET Take 2-3 tabs every 8 hours a* CETIRIZINE 10 MG TABLET Take 1 tablet by mouth once d* FOLIC ACID-VIT B6-VIT B12 2.5* Take 1 tablet by mouth once d* METHOTREXATE SODIUM (PF) 25 M* 0.75 ml weekly () * ABATACEPT 125 MG/ML SUBCUTANE* Inject subcutaneously. * VITAMIN E 400 UNIT TABLET Take by mouth. * CALCIUM 600 + D ORAL Take by mouth. PREDNISONE 5 MG TABLET Take 1 tablet by mouth once d* TIZANIDINE 4 MG TABLET Take 1 tablet by mouth every * FLURANDRENOLIDE 0.05 % LOTION Apply 1 application to affect* Patient not taking: Reported on 05/08/2018 ZOLPIDEM 5 MG TABLET Take 1 tablet by mouth at bed* Problem List As Of Date 05/08/2018 Noted Resolved Rheumatoid arthritis (HCC) [M06.9] GENERAL OSTEOARTHROSIS [M15.9] ADJUSTMENT DISORDER WITH DEPRESSED MOOD [F43.21] LUPUS ERYTHEMATOSUS [L93.0] ESOPHAGEAL REFLUX [K21.9] INVALID FOR* INSOMNIA NOS [G47.00] INVALID FOR* SCIATICA [M54.30] INVALID FOR* Varicose Veins of Leg with Swelling [I83.899] INVALID FOR* More... 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] INVALID FOR* Contact dermatitis and other eczema, due to uns*INVALID FOR* Postinflammatory hyperpigmentation [L81.0] INVALID FOR* Scars [L90.5] INVALID FOR* Superficial injury NEC [T07.XXXA] INVALID FOR* Unspecified pruritic disorder [L29.9] INVALID FOR*07/09/2013 Other specified disease of hair and hair follic*INVALID FOR* Prurigo [L28.2] INVALID FOR* Lichenification and lichen simplex chronicus [L*INVALID FOR* Dyschromia, unspecified [L81.9] INVALID FOR* Scar condition and fibrosis of skin [L90.5] INVALID FOR* Neurodermatitis [L28.0] INVALID FOR* Tobacco use disorder [F17.200] INVALID FOR* Chronic lower back pain [M54.5, G89.29] INVALID FOR* Nail avulsion, toe [S91.209A] INVALID FOR*09/16/2012 Climacteric [N95.1] INVALID FOR* Kidney stone [N20.0] INVALID FOR* Pelvic pressure in female [R10.2] INVALID FOR* Obesity (BMI 30.0-34.9) [E66.9] INVALID FOR* Screening for colon cancer [Z12.11] INVALID FOR* More... GERD (gastroesophageal reflux disease) [K21.9] INVALID FOR* More... Prescriptions ordered this encounter Disp Refills Start End PREDNISONE 5 MG TABLET 30 t* 0 05/08/2018 Route: ORAL Sig: Take 1 tablet by mouth once daily as needed (Rheumatoid Arthritis flare). GABAPENTIN 600 MG TABLET 540 * 3 05/08/2018 11/04/2018 Route: ORAL Sig: Take 2 tablets by mouth three times daily for 180 days. PAROXETINE 10 MG TABLET 90 t* 3 05/08/2018 Route: ORAL Sig: Take 1 tablet by mouth once daily. TIZANIDINE 4 MG TABLET 30 t* 1 05/08/2018 Route: ORAL Sig: Take 1 tablet by mouth every 6 hours as needed. for muscle spasms Medications Discontinued During This Encounter pregabalin (LYRICA) 100 mg capsule 10/05/2014 05/08/2018 Class: Historical Med Route: ORAL Sig: Take 2 capsules by mouth once daily. Dr. Rojas Disc: Reason for discontinue is not on file. predniSONE (DELTASONE) 5 mg tablet 30 t* 0 11/28/2017 05/08/2018 Route: ORAL Sig: Take 1 tablet by mouth once daily as needed (Rheumatoid Arthritis flare). Disc: Reason for discontinue is not on file. gabapentin (NEURONTIN) 600 mg tablet 540 * 3 02/26/2017 05/08/2018 Route: ORAL Sig: Take 2 tablets by mouth three times daily. Disc: Reason for discontinue is not on file. oxyCODONE-acetaminophen (PERCOCET) 5* 11/28/2017 05/08/2018 Class: Med Update Route: ORAL Sig: Take 1 tablet by mouth twice daily for 30 days. Earliest Fill Date: 11/28/17 Disc: Reason for discontinue is not on file. oxyCODONE-acetaminophen (PERCOCET) 5* 06/12/2016 05/08/2018 Class: Historical Med Route: ORAL Sig: Take by mouth once daily as needed. Disc: Reason for discontinue is not on file. morphine SR (MS CONTIN, ORAMORPH SR)* 0 10/05/2014 05/08/2018 Class: Historical Med Route: ORAL Sig: Take 1 tablet by mouth twice daily. Dr. Polanco Disc: Reason for discontinue is not on file. tiZANidine HCl 6 mg capsule 05/08/2018 Class: Historical Med Route: ORAL Sig: Take 6 mg by mouth three times daily. Disc: Reason for discontinue is not on file. PARoxetine (PAXIL) 10 mg tablet 90 t* 3 05/21/2017 05/08/2018 Cmt: Need to keep appointment for further refills. Route: ORAL Sig: Take 1 tablet by mouth once daily. Disc: Reason for discontinue is not on file. Disposition: Return in about 6 months (around 11/05/2018). Follow-up and Disposition History Recorded Letter Text . [facility] AUTHORIZATION FOR THE RELEASE OF MEDICAL INFORMATION FROM OTHER HEALTHCARE FACILITIES [facility] [address] [place], [place] [address] Name: Soraya Faust Date of : 1960 [address] [facility] [address] (home) Reason for Disclosure: Continuity of Care. Release Information From: Name of Provider/Facility: Dr. Simpson Street: City: State: Zip: Fax: Phone: Release Information To: Office Receiving: Cheryl Adams APRN.SQL REPORT WRITER PLEASE FAX TO: [phone] I hereby authorize to release the health information indicated below that is contained in my patient records to the Recipient named above. I understand and acknowledge that this may include treatment for physical and mental illness, alcohol/drug abuse and or HIV/AIDS test results or diagnosis. This authorization does not include permission to release outpatient Psychotherapy Notes* as defined below. The release of Psychotherapy Notes requires a separate authorization. REPORTS REQUESTED: Last office visit, procedures etc This consent is subject to revocation at any time except to the extent the action has been taken thereon. This authorization and consent will in one year from the date of authorization written below. Your health care (or payment for care) will not be affected by whether or not you sign this authorization. Once your health care information is released, re-disclosure of your health care information by the Recipient my no longer be protected by law. Signature of Patient/Legal Guardian Printed Name Date Signed: ____/ / Relationship if not Patient If other than patient?s signature, a copy of the legal papers verifying authority (e.g. Power of Supervising Editor Trailer or Certificate) MUST accompany the authorization when presented. Exception: parent if signing for patient under age 18. *Psychotherapy Notes defined as notes that document private, joint, group or family counseling sessions that are from the rest of a patient?s medical record. Letter Text . [facility] AUTHORIZATION FOR THE RELEASE OF MEDICAL INFORMATION FROM OTHER HEALTHCARE FACILITIES [facility] [address] [place] [address] Name: Soraya Faust Date of : 1960 [address] [place] [id number] (home) Reason for Disclosure: Continuity of Care. Release Information From: Name of Provider/Facility: Dr Polanco Street: City: State: Zip: Fax: Phone: Release Information To: Office Receiving: Cheryl Adams APRN.CNS PLEASE FAX TO: [phone] I hereby authorize to release the health information indicated below that is contained in my patient records to the Recipient named above. I understand and acknowledge that this may include treatment for physical and mental illness, alcohol/drug abuse and or HIV/AIDS test results or diagnosis. This authorization does not include permission to release outpatient Psychotherapy Notes* as defined below. The release of Psychotherapy Notes requires a separate authorization. REPORTS REQUESTED: Last office notes, procedures, etc This consent is subject to revocation at any time except to the extent the action has been taken thereon. This authorization and consent will in one year from the date of authorization written below. Your health care (or payment for care) will not be affected by whether or not you sign this authorization. Once your health care information is released, re-disclosure of your health care information by the Recipient my no longer be protected by law. Signature of Patient/Legal Guardian Printed Name Date Signed: ____/ / Relationship if not Patient If other than patient?s signature, a copy of the legal papers verifying authority (e.g. Power of Supervising Editor Trailer or Certificate) MUST accompany the authorization when presented. Exception: parent if signing for patient under age 18. *Psychotherapy Notes defined as notes that document private, joint, group or family counseling sessions that are from the rest of a patient?s medical record. Encounter Status:Closed by CHERYL WHEELER on 05/08/18 PROGRESS Observed: 05/08/2018 Status: COMPLETED Source: [place] 12:48 PM [facility] REPOSITORY O ID: [id number] Author: Cheryl Lockett) Bryan Service: (none) Author Type: Nurse Specialist Type: Progress Notes Filed: 05/08/2018 1:58 PM Note Text: This note was created using MYOMOter. Subjective Soraya Faust is a 57 year old female. HPI She is a history of rheumatoid arthritis and lupus, followed by wet machine tender Dr. Rojas. She reports adequate pain relief for her lupus and rheumatoid arthritis. She is primarily concerned about pain in her cervical and lumbar spine today. She has history of previous cervical and lumbar spinal fusions. She has been seeing local pain management physicians who have recommended injections in her spine for back pain. She has not found these spinal injections have not been very helpful for pain. She continues to note restricted motion of her cervical spine along with pain and pain in her lumbar spine as well. Intermittently does use prednisone which helps a bit with pain. Continues with Tylenol as needed for pain. Gabapentin also help somewhat. She reports x-rays completed of cervical and lumbar spine last year, reports CT of spine at [facility] 2017. She cannot have MRIs completed due to an implanted pain device in her lumbar spine. Previous pain management doctors Dr. Polanco and Dr. Escobar at [facility]. She would like to have other options available to her, requests recommendations. See A[employer] message date 05/05/2018. Review of Systems Constitutional: Negative for activity change, appetite change, chills, diaphoresis and fever. Respiratory: Negative for choking, chest tightness, shortness of breath and wheezing. Cardiovascular: Negative for chest pain, palpitations and leg swelling. Musculoskeletal: Positive for back pain. Neurological: Negative for dizziness, light-headedness and numbness. Objective BP 138/74 (BP Site: Left Arm, BP Position: Sitting, BP Cuff Size: Large Adult) Pulse 92 Resp 16 Wt 92.1 kg (203 lb) BMI 35.96 kg/m? Physical Exam Constitutional: She is oriented to person, place, and time. She appears well-developed and well-nourished. HENT: Head: Normocephalic. Neck: Muscular tenderness present. Decreased range of motion (cervical and lumbar spine) present. No edema and no erythema present. Cardiovascular: Normal rate and regular rhythm. Pulmonary/Chest: Effort normal. Musculoskeletal: She exhibits tenderness (cervical and lumbar spine) and deformity. Neurological: She is alert and oriented to person, place, and time. Skin: Skin is warm and dry. Psychiatric: She has a normal mood and affect. Nursing note and vitals reviewed. [facility] XR 2018 LUMBAR SPINE 2 OR 3 VIEWS Observed: 07/01/2017 9:45 AM Status: F Source: [facility] REPOSITORY [facility] Imaging Services [address] [place] [address] Lumbar Spine 2 or 3 Views MR#: [id number] Acct: [id number] Name: SORAYA FAUST Rep #: [id number] : 1960 F 56 From: Jose Ramon Ojeda MD PCP: James Bustamante MD Status: REG CLI Study: Lumbar Spine 2 or 3 Views Date of Exam: 07/01/17 Exam# [id number] Ordering Dr: Felicitas Polanco MD STUDY: X-RAY - LUMBAR SPINE REASON FOR EXAM: Female, 56 years old. Pain after fall 2-3 months ago. TECHNIQUE: 3 view(s) of the lumbar spine were obtained. COMPARISON: CT of the lumbar spine dated December 29, 2014. FINDINGS: There is generalized osteopenia. There is posterior fusion from L4 to S1 with anterior intervertebral fusion at L4-5 and L5-S1, unchanged in position or alignment. There is diffuse facet sclerosis. There is moderate spondylosis of the lower thoracic region. There is an epidural catheter present and unchanged. RAD/Lumbar Spine 2 or 3 Views IMPRESSION: Stable postsurgical changes without complications. Generalized osteopenia with thoracolumbar spondylosis unchanged. No new or acute pathology. Electronically Signed: Jose Ramon Ojeda MD at 16:59 EST , Service support , CC: Felicitas Polanco MD; James Bustamante MD 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Signed THORACIC SPINE 3 VIEWS Observed: 07/01/2017 9:45 AM Status: F Source: [facility] REPOSITORY [facility] Imaging Services [address] [place] [id number] Thoracic Spine 3 Views MR#: [id number] Acct: [id number] Name: SORAYA FAUST Rep #: [id number] : 1960 F 56 From: Jose Ramon Ojeda MD PCP: James Bustamante MD Status: REG CLI Study: Thoracic Spine 3 Views Date of Exam: 07/01/17 Exam# [id number] Ordering Dr: Felicitas Polanco MD STUDY: X-RAY - THORACIC SPINE REASON FOR EXAM: 3, 56 years old. Fall 2-3 months ago. Increasing thoracic spine pain. TECHNIQUE: 3 view(s) of the thoracic spine were obtained. COMPARISON: Report of thoracic spine images dated January 06, 2010. FINDINGS: There is generalized osteopenia. Normal kyphosis of the thoracic spine. There is no substantial scoliosis. There is a new anterior wedge compression deformity of the T11 vertebral body, age undetermined. There is diffuse intervertebral disc space narrowing with osteophyte formation unchanged. There is an epidural stimulator unchanged in position. There is anterior fusion of the lower cervical spine unchanged. RAD/Thoracic Spine 3 Views IMPRESSION: Osteopenia with diffuse spondylosis and spinal stimulator. New anterior wedge compression deformity of T11, age undetermined. 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Signed ALLERGIES Allergen Reactions - Adhesive Rash - Celexa [Citalopram] GI Upset - Codeine Motion kind of sickness - Doxycycline GI Upset Current Outpatient Prescriptions: nabumetone (RELAFEN) 750 mg tablet Take 750 mg by mouth twice daily. gabapentin (NEURONTIN) 600 mg tablet Take 2 tablets by mouth three times daily for 180 days. PARoxetine (PAXIL) 10 mg tablet Take 1 tablet by mouth once daily. esomeprazole (NEXIUM) 40 mg capsule TAKE ONE CAPSULE BY MOUTH TWICE DAILY BEFORE MEALS hydrOXYzine HCl (ATARAX) 25 mg tablet Take 2-3 tabs every 8 hours as needed for itching. cetirizine (ZYRTEC) 10 mg tablet Take 1 tablet by mouth once daily. May take one additional tablet daily as needed folic acid-B6-B12 (FOLBEE) 2.5-25-1 mg tab Take 1 tablet by mouth once daily. methotrexate, PF, 25 mg/mL Soln 0.75 ml weekly () abatacept (ORENCIA) 125 mg/mL Syrg Inject subcutaneously. Vitamin E 400 unit ORAL Tab Take by mouth. CALCIUM CARBONATE/VITAMIN D3 (CALCIUM 600 + D ORAL) Take by mouth. predniSONE (DELTASONE) 5 mg tablet Take 1 tablet by mouth once daily as needed (Rheumatoid Arthritis flare). tiZANidine (ZANAFLEX) 4 mg tablet Take 1 tablet by mouth every 6 hours as needed. for muscle spasms flurandrenolide (CORDRAN) 0.05 % lotion Apply 1 application to affected area twice daily. (Patient not taking: Reported on 05/08/2018 ) zolpidem (AMBIEN) 5 mg tablet Take 1 tablet by mouth at bedtime as needed for Sedation. No current facility-administered medications for this visit. PAST MEDICAL HISTORY Diagnosis Date - Adjustment disorder with depressed mood - Climacteric - Esophageal reflux 08/19/2006 - Fibromyalgia - Generalized osteoarthrosis, unspecified site - Insomnia, unspecified 08/19/2006 - Lupus erythematosus - Rheumatoid arthritis(714.0) Dr. 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 Other chronic pain - ICD9: 338.29, ICD10: G89.29 (primary diagnosis) - CONSULT TO PAIN MGT ANESTHESIA 2. Rheumatoid arthritis, involving unspecified site, unspecified rheumatoid factor presence (HCC) - ICD9: 714.0, ICD10: M06.9 3. Lupus erythematosus, unspecified form - ICD9: 695.4, ICD10: L93.0 Will continue with current wet machine tender 4. Sciatica, unspecified laterality - ICD9: 724.3, ICD10: M54.30 - CONSULT TO PAIN MGT ANESTHESIA 5. Systemic lupus erythematosus, unspecified SLE type, unspecified organ involvement status (HCC) - ICD9: 710.0, ICD10: M32.9 - CONSULT TO PAIN MGT ANESTHESIA - PREDNISONE 5 MG TABLET 6. History of spinal fusion - ICD9: V45.4, ICD10: Z98.1 - GABAPENTIN 600 MG TABLET - CONSULT TO [facility] - TIZANIDINE 4 MG TABLET Recommend she consider seeing a vehicle care specialist as well as a pain specialist as she is primarily having pain in her spine in areas of prior surgeries. Status post cervical lumbar spinal fusions. May need imaging of cervical, thoracic and lumbar spine. Recommendation she continue with current medications for now. She may try increasing dose of prednisone, continue with gabapentin and Tylenol and tizanidine as needed Provided with information regarding specialist, Dr. Bustamante in [place], Dr. Escobar at [facility], and spine Center at [facility] if she so desires. Recommend she make an appointment with James Bustamante MD, last seen 2014. Cheryl Adams APRN.SQL REPORT WRITER May 08, 2018 PROGRESS Observed: 04/12/2018 Status: COMPLETED Source: [place] 11:17 AM [facility] REPOSITORY HNO ID: [id number] Author: Justin Earl Service: (none) Author Type: Physician Type: Progress Notes Filed: 04/12/2018 11:20 AM Note Text: OPERATIVE NOTATION FOR [facility] SURGICAL PROCEDURE. April 07, 2018 Soraya Faust 1960 [id number] female PROCEDURE: EGD WITH BIOPSY - 80134-830 and COLONOSCOPY - 73633-652 SURGEON: German Earl M.D. FACS ORNAMENTAL METAL ERECTOR APPRENTICE: None DEPT: WQ PROVIDER: [id number] Earl MD POS: [id number] DIAGNOSIS: (K21.9) Gastroesophageal reflux disease, esophagitis presence not specified (primary encounter diagnosis) (Z12.11) Encounter for screening for malignant neoplasm of colon ASA CLASS: 3 - Severe FINDINGS: COMPLICATIONS: None PMHx - PAST MEDICAL HISTORY Diagnosis Date - Adjustment disorder with depressed mood - Climacteric - Esophageal reflux 08/19/2006 - Fibromyalgia - Generalized osteoarthrosis, unspecified site - Insomnia, unspecified 08/19/2006 - Lupus erythematosus - Rheumatoid arthritis(714.0) Dr. Rojas treating - Sciatica 08/19/2006 COMORBIDITIES - None Post Op Occurrences - None Wound Classification - Clean Contaminated Operative note dictated in the [facility] dictation system. Justin Earl MD CBC W/DIFF, AUTOMATED Collected: 04/08/2018 Status: F Source: [place] 11:36 AM [facility] REPOSITORY TYPE CODE TESTS RESULT OUT OF RANGE REFERENCE UNITS LAB L100.1000 4.4-11.0 K/mm3 Low WBC 3.9 LAB L100.1200 4.2-5.4 M/mm3 Normal RBC 4.32 LAB L100.1300 12.0-15.0 g/dl Normal HGB 12.5 LAB L100.1400 37-47 % Normal HCT 40.4 LAB L100.1500 81-99 fL Normal MCV 93.5 LAB L100.1600 27.0-32.0 pg Normal MCH 28.9 LAB L100.1700 32-36 g/gl Low MCHC 30.9 LAB L100.1810 11.6-14.6 % Normal RDW CV 13.3 LAB L100.1820 35.1-43.9 fl High RDW SD 44.0 LAB L100.1900 150-450 K/mm3 Normal PLT 211 LAB L100.2000 6.2-12.0 fl Normal MPV 8.2 LAB L100.2100 47-70 % Normal NEUT% 58.8 LAB L100.2200 19-41 % Normal LY% 27.6 LAB L100.2300 0-10 % High MONO% 10.7 LAB L100.2400 0-5 % Normal EO% 2.3 LAB L100.2500 0-1 % Normal BASO% 0.3 LAB L100.2550 0.0-0.9 % Normal IM GRAN % 0.300 Result Comment: IG% - Immature Granulocytes (promyelocytes, myelocytes and metamyelocytes) > 1% indicates that a LEFT SHIFT is Present. LAB L100.2620 2.0-7.7 X10 3/uL Normal Absolute Neut 2.3 LAB L100.2720 0.83-4.51 X10 3/ul Normal Absolute Lymph 1.08 Performed By: #### L100.0100 #### [facility] [address] [place], [place], [address] COMPREHENSIVE METABOLIC Collected: 04/08/2018 Status: F Source: [facility] 11:36 AM [facility] REPOSITORY TYPE CODE TESTS RESULT OUT OF RANGE REFERENCE UNITS LAB L501.0100 74-106 mg/dL High GLU 117 Result Comment: Fasting Glucose result from 100 to 125 mg/dL suggests IMPAIRED HOMEOSTASIS per A.D.A. criteria. Please note revised GLUCOSE reference range effective 2017. LAB L501.1000 7-18 mg/dL High BUN 19 LAB L501.1100 0.55-1.02 mg/dL Normal CREAT,SERUM 0.67 Result Comment: The validity of the calculated GFR AND GFRAA in patients over 70 years has not been determined. Clinical correlation is essential. LAB L501.1110 >60 mL/min Normal EST GFR 97 Result Comment: Non- GFR Calc LAB L501.1115 >60 mL/min Normal EST GFR - AA 118 Result Comment: GFR Calc LAB L501.1300 10-20 RATIO High BUN/CRE 28.4 LAB L501.1500 6.4-8.2 g/dL T Normal PROT 6.9 LAB L501.1800 3.2-5.0 g/dL Normal ALB 3.3 LAB L501.1950 2.2-4.2 g/dL Normal GLOB 3.6 LAB L501.2000 0.9-2.4 RATIO Normal A/G 0.9 LAB L501.2200 8.5-10.1 mg/dL CA Normal 8.7 LAB L501.4100 15-37 U/L Normal AST 18 LAB L501.4305 45-117 U/L High ALK P 124 LAB L501.4405 13-56 U/L Normal ALT 32 LAB L501.4600 0.20-1.00 mg/dL T Normal BILI 0.30 LAB L501.5300 136-145 mmol/L NA Normal 143 LAB L501.5600 3.5-5.1 mmol/L K Normal 3.6 LAB L501.5900 98-107 mmol/L CL Normal 104 LAB L501.6100 21.0-32.0 mmol/L Normal CO2 30.0 LAB L501.6200 5-15 Normal GAP 9 Performed By: #### L500.4050 #### [facility] [address] [facility] [place], [address] OPERATIVE REPORT - Observed: 04/07/2018 Status: F Source: [place] [facility] 3:36 PM [facility] REPOSITORY [facility] Medical Records Department [address] [place] [address] Operative Report - Endoscopy MR#: [id number] Acct: [id number] Name: SORAYA FAUST Rep #: [id number] : 1960 57 From: Justin Earl MD PCP: James Bustamante MD [place] [facility] [place] Name: Soraya Faust Procedure Date: 04/07/2018 2:50 PM Date of : 1960 Age: 57 Procedure: Colonoscopy Indications: Screening for colorectal malignant neoplasm Providers: Justin Earl MD Medicines: Monitored Anesthesia Care Patient Profile: This is a 57 year old female. Refer to note in patient chart for documentation of history and physical. Last Colonoscopy: none. The patient's first colonoscopy is today. Complications: No immediate complications. Procedure: Pre-Anesthesia Assessment: - Prior to the procedure, a History and Physical was performed, and patient medications and allergies were reviewed. The patient is competent. The risks and benefits of the procedure and the sedation options and risks were discussed with the patient. All questions were answered and informed consent was obtained. Patient identification and proposed procedure were verified by the physician and the nurse in the procedure room. Mental Status Examination: alert and oriented. Airway Examination: normal oropharyngeal airway and neck mobility. Respiratory Examination: clear to auscultation. CV Examination: normal. Prophylactic Antibiotics: The patient does not require prophylactic antibiotics. Prior Anticoagulants: The patient has taken no previous anticoagulant or antiplatelet agents. ASA Grade Assessment: III - A patient with severe systemic disease. After reviewing the risks and benefits, the patient was deemed in satisfactory condition to undergo the procedure. The anesthesia plan was to use monitored anesthesia care (MAC). Immediately prior to administration of medications, the patient was re-assessed for adequacy to receive sedatives. The heart rate, respiratory rate, oxygen saturations, blood pressure, adequacy of pulmonary ventilation, and response to care were monitored throughout the procedure. The physical status of the patient was re-assessed after the procedure. After I obtained informed consent, the scope was passed under direct vision. Throughout the procedure, the patient's blood pressure, pulse, and oxygen saturations were monitored continuously. The colonoscope was introduced through the anus and advanced to the cecum, identified by the appendiceal orifice, ileocecal valve and palpation. The colonoscopy was performed without difficulty. The patient tolerated the procedure well. The quality of the bowel preparation was good. Scope In: 2:51:34 PM Scope Withdrawal Time 0 hours 18 minutes 0 seconds Scope Out: 3:25:38 PM Total Procedure Duration Time 0 hours 34 minutes 4 seconds Findings: The perianal and digital rectal examinations were normal. The entire examined colon appeared normal on direct and retroflexion views. Impression: - The entire examined colon is normal on direct and retroflexion views. - No specimens collected. Recommendation: - Discharge patient to home. - Resume previous diet. - Continue present medications. - Repeat colonoscopy in 10 years for screening purposes. Justin Earl MD 04/07/2018 3:35:40 PM This report has been signed electronically. Number of Addenda: 0 Note Initiated On: 04/07/2018 2:50 PM 04/07/18 1535 Date Justin Earl MD Cosigner Signature: Date (if indicated) CC: James Bustamante MD; Justin Earl MD Date Dictated: 04/07/18 1450 Date Transcribed: 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RG Signed OPERATIVE REPORT - Observed: 04/07/2018 Status: F Source: [facility] 3:33 PM [facility] REPOSITORY [facility] Medical Records Department [address] [place] [address] Operative Report - Endoscopy MR#: [id number] Acct: [id number] Name: SORAYA FAUST Rep #: [id number] : 1960 57 From: Justin Earl MD PCP: James Bustamante MD Status: [facility] Patient Name: Soraya Faust Procedure Date: 04/07/2018 2:26 PM Date of : 1960 Age: 57 Procedure: Upper GI endoscopy Indications: Follow-up of gastro-esophageal reflux disease Providers: Justin Earl MD Medicines: Monitored Anesthesia Care Patient Profile: This is a 57 year old female. Refer to note in patient chart for documentation of history and physical. Complications: No immediate complications. Procedure: Pre-Anesthesia Assessment: - Prior to the procedure, a History and Physical was performed, and patient medications and allergies were reviewed. The patient is competent. The risks and benefits of the procedure and the sedation options and risks were discussed with the patient. All questions were answered and informed consent was obtained. Patient identification and proposed procedure were verified by the physician and the nurse in the procedure room. Mental Status Examination: alert and oriented. Airway Examination: normal oropharyngeal airway and neck mobility. Respiratory Examination: clear to auscultation. CV Examination: normal. Prophylactic Antibiotics: The patient does not require prophylactic antibiotics. Prior Anticoagulants: The patient has taken no previous anticoagulant or antiplatelet agents. ASA Grade Assessment: III - A patient with severe systemic disease. After reviewing the risks and benefits, the patient was deemed in satisfactory condition to undergo the procedure. The anesthesia plan was to use monitored anesthesia care (MAC). Immediately prior to administration of medications, the patient was re-assessed for adequacy to receive sedatives. The heart rate, respiratory rate, oxygen saturations, blood pressure, adequacy of pulmonary ventilation, and response to care were monitored throughout the procedure. The physical status of the patient was re-assessed after the procedure. After obtaining informed consent, the endoscope was passed under direct vision. Throughout the procedure, the patient's blood pressure, pulse, and oxygen saturations were monitored continuously. The gastroscope was introduced through the mouth, and advanced to the jejunum. The upper GI endoscopy was accomplished without difficulty. Scope In: 2:45:13 PM Scope Out: 2:49:01 PM Total Procedure Duration Time 0 hours 3 minutes 48 seconds Findings: The examined jejunum was normal. The examined duodenum was normal. Minimal inflammation characterized by erythema was found in the gastric antrum. Biopsies were taken with a cold forceps for histology. A medium-sized hiatal hernia was present. Non-severe esophagitis with no bleeding was found. Biopsies were taken with a cold forceps for histology. Impression: - Normal examined jejunum. - Normal examined duodenum. - Gastritis. Biopsied. - Medium-sized hiatal hernia. - Non-severe reflux esophagitis. Biopsied. Recommendation: - Return to physician teaching assistant in 1 week. - Continue present medications. Procedure Code(s): --- Professional --- 98846, Esophagogastroduodenoscopy, flexible, transoral; with biopsy, single or multiple CPT copyright 2017 [employer]. All rights reserved. The codes documented in this report are preliminary and upon qa automation developer review may be revised to meet current compliance requirements. Justin Earl MD 04/07/2018 3:33:26 PM This report has been signed electronically. Number of Addenda: 0 Note Initiated On: 04/07/2018 2:26 PM 04/07/18 1533 Date Justin Earl MD Cosigner Signature: Date (if indicated) CC: James Bustamante MD; Justin Earl MD Date Dictated: 04/07/18 1426 Date Transcribed: 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MARÍA Signed IMMUNOHISTOCHEMISTRY Observed: 04/07/2018 Status: F Source: [place] 2:00 PM [facility] REPOSITORY Patient: SORAYA FAUST : 1960 (57/F) Acct Num: [id number] Phys: Anayeli WOLFE,Justin Unit Num: [id number] Loc: EN Specimen: [id number] Received: 04/08/18 1406 Spec Type: IMMUNO TISSUES 1 TISSUES: A. Stomach, NOS SPECIMEN INFORMATION: Tissue Source: A - Antrum biopsy Clinical Info: GERD, resistant to PPI, screening Specimen Number: [id number] CPT code: 84526 METHODOLOGY: Deparaffinized sections of prefer/formalin-fixed tissue or PAP/DQ stained slides are incubated with monoclonal/polyclonal antibodies/oligonucleotide probes. Localization is made via biotin free immunoperoxidase method. Appropriate controls are performed and reacted as expected. Results on target cell population are indicated in the following table: RESULTS: ANTIBODY / CLONE RESULT Block A H Pylori (polyclonal) negative These tests were developed and their performance characteristics determined by [facility]. They may not have been cleared or approved by the U.S. Food and Drug Administration. The FDA has determined that such clearance or approval is not necessary. INTERPRETATION: A. Antrum, biopsy: Negative for Helicobacter pylori organisms. AM:maría 04/09/18 PHYSICIAN AND INSTITUTION [place] [id number] Signed Sajniv Odonnell 04/09/18 <signature on file> Performed By: #### PIMM #### [facility] [place], [address] CNOP Observed: 04/07/2018 Status: COMPLETED Source: [place] 12:00 AM [facility] REPOSITORY Operative Note (Enc) (GENSWS) Progress Notes: Justin Earl MD 04/12/2018 11:20 AM Signed OPERATIVE NOTATION FOR [facility] SURGICAL PROCEDURE. April 07, 2018 Soraya Roell 1960 [id number] female PROCEDURE: EGD WITH BIOPSY - 77594-276 and COLONOSCOPY - 52869-927 SURGEON: German Earl M.D. FACS ORNAMENTAL METAL ERECTOR APPRENTICE: None DEPT: WQ PROVIDER: [id number] Earl MD POS: [id number] DIAGNOSIS: (K21.9) Gastroesophageal reflux disease, esophagitis presence not specified (primary encounter diagnosis) (Z12.11) Encounter for screening for malignant neoplasm of colon ASA CLASS: 3 - Severe FINDINGS: COMPLICATIONS: None PMHx - PAST MEDICAL HISTORY Diagnosis Date - Adjustment disorder with depressed mood - Climacteric - Esophageal reflux 08/19/2006 - Fibromyalgia - Generalized osteoarthrosis, unspecified site - Insomnia, unspecified 08/19/2006 - Lupus erythematosus - Rheumatoid arthritis(714.0) Dr. Rojas treating - Sciatica 08/19/2006 COMORBIDITIES - None Post Op Occurrences - None Wound Classification - Clean Contaminated Operative note dictated in the [facility] dictation system. Justin Earl MD Encounter Status:Closed by JUSTIN EARL MD on 04/12/18 GASTRIC BIOPSY Observed: 04/07/2018 Status: F Source: [place] 12:00 AM [facility] Patient: SORAYA FAUST : 1960 (57/F) Acct Num: [id number] Phys: Anayeli WOLFE,Justin Unit Num: [id number] Loc: EN Specimen: [id number] Received: 04/08/181313 Spec Type: Gastric Bx TISSUES 1 TISSUES: A. Gastric mucous membrane B. Gastric mucous membrane COMMENT A. The results of immunohistochemistry for Helicobacter pylori will be reported separately ([id number]). GROSS DESCRIPTION A - Received in fixative is one container labeled with the patient's name and designated antral biopsy for H. pylori and path. The specimen consists of one irregular fragment of light gilbert soft tissue that measures 0.3 x 0.2 x 0.1 cm. The specimen is totally submitted in one cassette. B - Received in fixative is one container labeled with the patient's name and designated GE junction biopsy. The specimen consists of one irregular fragment of light gilbert soft tissue that measures 0.6 x 0.1 x 0.1 cm. The specimen is totally submitted in one cassette. / SJ:maría 04/08/18 TC:3 CPT: 90747 x2 HEADER OPERATION: [place] DIAGNOSIS: GERD resistant to PPI, screening colonoscopy TISSUE SUBMITTED: A - Antrum biopsy for H. pylori and path, B - GE junction biopsy MICROSCOPIC DESCRIPTION Slides are reviewed. MICROSCOPIC DIAGNOSIS A. Gastric antrum, biopsy: Mild chronic gastritis. B. Gastroesophageal junction, biopsy: Mild chronic inflammation. SJ:maría 04/09/18 Signed [facility] 04/09/18 <signature on file> Performed By: #### PGASB #### [facility] [address] [place], [address] HISTORY AND PHYSICAL Observed: 04/05/2018 Status: F Source: [place] EXAM 8:25 AM [facility] REPOSITORY [facility] Medical Records Department [address] [place] [address] History and Physical 04/05/18 0825 MR#: [id number] Acct: [id number] Name: SORAYA FAUST Rep #: [id number] : 1960 57 From: Justin Earl MD PCP: James Bustamante MD [place] [facility] [place] Location: EN History and Physical Date of Admission: 04/07/18 HISTORY AND PHYSICAL Soraya Faust 1960 REFERRING PHYSICIAN: James Bustamante MD CHIEF COMPLAINT: Consult (colonoscopy) HPI: The patient is a 57 year old female referred for endoscopy. Soraya notes history intermittent left lower quadrant discomfort, but also notes history of chronic back issues and thought the discomfort might be related to her back, states will feel like a spasm occasionally. She denies any change in bowel habits, weight changes, blood in stools, or black tarry stools. She denies any family history of colon cancer. The patient NOTES a history of acid reflux issues. has been taking a PPI for some time with no improvement in symptoms. Denies prior EGD. Soraya has not undergone prior colonoscopy. The patient is being seen by me today at the request of Dr. Bustamante for my opinion and advice regarding screening colonoscopy. Patient's past medical history is significant for fibromyalgia, rheumatoid arthritis, lupus, osteoarthrosis. She follows with Dr. Bustamante for her chronic medical conditions and also follows with pain management-previously saw Dr. Polanco and now in the process of switching to Dr. Escobar. She denies any chest pain or shortness of breath. Notes she has had some nausea with anesthesia in the past but denies any other adverse reaction. c PAST MEDICAL HISTORY c PAST MEDICAL HISTORY Diagnosis Date Adjustment disorder with depressed mood Climacte michell Esophageal reflux 08/19/2006 Fibromyalgia Generalized osteoarthrosis, unspecifi ed siteInsomnia, unspecified 08/19/2006 Lupus erythematosus Rheumatoid arthritis(714.0) Dr. Rojas treating Sciatica 08/19/2006 c PAST SURGICAL HISTORY c CURRENT MEDICATIONS c Current Outpatient Prescriptions: oxyCODONE-acetaminophen (PERCOCET) 5-325 mg tablet Take b y mouth once daily as needed. predniSONE (DELTASONE) 5 mg tablet Take 1 tablet by mouth once d aily as needed (Rheumatoid Arthritis flare). cetirizine (ZYRTEC) 10 mg tablet Take 1 tablet by mouth once daily. May take one additional tablet daily as needed hydrOXYzine HCl (ATARAX) 25 mg tablet Take 1 tablet by mouth every 8 hours as needed. PARoxetine (PAXIL) 10 mg tablet Take 1 tablet by mouth once daily. esomeprazole (NEXIUM) 40 mg capsule Take 1 capsule by mouth twi ce daily before meals. gabapentin (NEURONTIN) 600 mg tablet Take 2 tablets by mouth three time s daily. flurandrenolide (CORDRAN) 0.05 % lotion Apply 1 application to affected area twice da massimo. folic acid-B6-B12 (FOLBEE) 2.5-25-1 mg tab Take 1 tablet by mouth once daily. pregabalin (LYRICA) 100 mg capsule Take 2 capsules by mouth once daily. Dr. Rojas morphine SR (MS CON TIN, ORAMORPH SR) 15 mg 12 hr tablet Take 1 tablet by mouth twice daily. Dr. Polanco tiZANidine HCl 6 mg capsule Take 6 mg by mouth three times daily. zolpidem (AMBIEN) 5 mg tablet Take 1 t ablet by mouth at bedtime as needed for Sedation. methotrexate, PF, 25 mg/mL Soln 0.75 ml week ly () abatacept (ORENCIA) 125 mg/mL Syrg Inject subcutaneously. Vitamin E 400 u nit ORAL Tab Take by mouth. CALCIUM CARBONATE/VITAMIN D3 (CALCIUM 600 + D ORAL) Take by mout h. peg 3350-Electrolytes (GOLYTELY) 236-22.74-6.74 -5.86 gram suspension Take 4,000 mL by mout h one time only for 1 dose. oxyCODONE-acetaminophen (PERCOCET) 5-325 mg tabletTake 1 tablet by mouth twice daily for 30 days.Earliest Fill Date: 11/28/17 No current facility-administered m edications for this visit. 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 Social Histo ry Main Topics Smoking status: Former SmokerPacks/day: 0.50 Years: 22.00 Types: Cigarettes Quit date: 12/06/2016 Smokeless tobacco: Never Used Comm ent: 3 cigarettes per day Alcohol use: NoDrug use: No Sexual activity: Yes Partners with: Male control/protection: Tubal Ligation FAMILY HISTORY: c FAMILY HISTORY c FAMILY HISTORY Problem Relation Age of Onset Thyroid Mother hypothyroid, obese, hypertension, Diabetes Mother type II Diabetes Father depression, hype rtension,one lobe removed from lung valvue replacement; type 2 DM Hypertension Paternal Gran dmother valvue replacement, colostomy bag because colon ca Thyroid Sister over active thyroid, hypertension REVIEW OF SYMPTOMS: The review of systems data was entered by the nurse and reviewed by va Nursing Notes: Keiry Muñoz RN 02/27/2018 3:41 PM Signed REVIEW OF SYSTEMS: General: The patient notes fatigue, denies weight loss, denies weight gain, notes feeling hot, and denies feelings of cold. Eyes: The patient denies glaucoma, denies eye injury/surgery, wears glasses or contacts. Ear/Nose/Throat: The patient denies allergies, denies hayfever, denies ear infections, and denies bloody noses. Cardiovascular: The patient denies chest pain, denies heart disease, denies high blood pressure,denies cardiac stent, denies prior heart attack, denies irregular heart beat, denies high cholesterol, denies poor circulation, denies heart failure, other cardiac issues, notes claudication, notes cold feet, denies peripheral arterial stent. Respiratory: The patient denies tuberculosis, denies pneumonia, denies frequent cough, denies pulmonary embolism, denies shortness of breath, and denies coughing up blood. Gastrointestinal: The patient denies difficulty swallowing, notes acid reflux, denies ulcers, denies vomiting, denies jaundice/hepatitis, denies gallbladder problems, denies black or tarry stools, denies hemorrhoids, denies bleeding from rectum, denies diverticulitis, denies constipation, denies diarrhea, denies loss of stool control, and denies hernias. Kidney/Bladder: The patient denies kidney stones, denies urine infections, and denies bloody urine. Skin: The patient denies a history of skin cancer, denies bleeding/changing moles, and denies a history of skin rash. Neurologic: The patient denies a history of epilepsy/convulsions, denies headaches, denies head/spinal injuries, and denies stroke/TIA. Psychiatric: The patient denies psychiatric medications, denies depression, and denies voices, denies substance abuse. Endocrine: The patient denies thyroid disorders, denies diabetes, and denies hormonal problems. Hematologic: The patient denies a history of bruising, denies bleeding, and denies anemia, denies blood clots. Infections: The patient notes a history of measles and mumps, denies rheumatic fever, and denies sexually transmitted diseases. Musculoskeletal: The patient notes back pain/injury, notes back problems, denies sciatica, denies knee/foot trouble, NOTES arthritis, or denies gout. When was patient's last Mammogram screening? 09/02/2017 Last Colonoscopy: never Keiry Muñoz RN I have confirmed and edited as necessary, the PFSH and ROS obtained by others. PHYSICAL EXAMINATION: General: The patient is 57 year old female, well nourished, well hydrated in no acute distress. The patient is oriented to time, place, and person. VITALS: Blood pressure 166/81, pulse 101, weight 91.8 kg (202 lb 6.4 oz), SpO2 97 %. Body mass index is 35.85 kg/m . HEENT: Normal cephalic, ataumatic, pupils are equally round, sclera are anicteric, mucous membranes are moist, oropharynx is clear. Neck has no masses, asymmetry or lymphadenopathy. Respiratory: Clear to auscultation and percussion. Normal respiratory excursion and pattern. Cardiac: Examination is regular rate and rhythm. Normal S1/S2 Abdominal exam: Soft, nontender, with no palpable masses. No hepatosplenomegaly. No palpable hernias. Rectal exam: exam deferred Extremities: no clubbing, cyanosis or edema. No adenopathy. Other: LABORATORY VALUES: As Noted RADIOLOGIC STUDIES: As Noted Assessment IMPRESSION: encounter for screening colonoscopy. GERD resistant to PPI, would recommend EGD in addition to the colonoscopy PLAN: We will plan for upper and lower endoscopy. We discussed the risks and benefits of the planned endoscopy. I have informed the patient that complications can occur including failure to complete the endoscopy and perforation. The patient had the opportunity to ask questions concerning the planned endoscopy. My staff has also explained the procedure to the patient in understandable terms and has given the patient printed material concerning the procedure. The patient freely consents to surgery. I plan to use golytely bowel preparation for endoscopy The patient takes prescription medications which I feel decrease the chance of successful sedation. I therefore plan for monitored anesthetic care. Diagnoses: (K21.9) Gastroesophageal reflux disease, esophagitis presence not specified (primary encounter diagnosis) (Z12.11) Encounter for screening for malignant neoplasm of colon My findings have been communicated to Dr. Bustamante via shared medical record. This note will be forwarded to Dr. James Bustamante MD. Return to Clinic: The patient is instructed to follow-up with me 1 week post operatively. Meghna Chavarria PA-C 04/05/18 0825 <Electronically signed by Justin Earl MD> Date Justin Earl MD Cosigner Signature: Date (if applicable) CC: James Bustamante MD; Justin Earl MD Signed NURSING PROG Observed: 03/11/2018 Status: COMPLETED Source: [place] 10:22 AM CLINIC OTHER CAMPUS REPOSITORY HNO ID: [id number] Author: Margarita (Rn) DADA Marquez Service: Nursing Author Type: Registered Nurse Type: Nursing Progress Note Filed: 03/11/2018 10:24 AM Note Text: PACC Nurse Progress Note History AND Physical: PACC Visit Date: N/A Original HANDP Date: 02/27/18 by RODGER Alvarado ED visit Date: N/A Outside HANDP Scanned Date: N/A Labs Within Last 6 Months: CBC: Date 01/08/18 cbc/diff- within acceptable limits BMP/CMP: Date 01/08/18 cmp- within acceptable limits Imaging Within Last 12 Months: N/A Cardiac Testing: N/A Last Menstrual Period: LMP Date: N/A Postmenopausal >1yr: Yes, S/P Hysterectomy: No BMI Percentile (PEDS): N/A BMI 35.8 Risk Assessment: N/A Anesthesia Review: N/A Narrative: HX fibromyalgia, lupus, R. A., in pain managment Pre-op Considerations: N/A Chart Check: IN PROGRESS needs instructions. Margarita Marquez RN March 11, 2018 10:22 AM US HIP LT Observed: 03/03/2018 Status: F Source: [place] 1:57 PM [facility] REPOSITORY * * *Final Report* * * DATE OF EXAM: Mar 03 2018 1:57PM CARMELINA 1147 - US HIP LT / PROCEDURE REASON: msk u/s left hip, eval for glut tear and calcific tendinitis * * * * Physician Interpretation * * * * LEFT LATERAL HIP ULTRASOUND: CLINICAL INFORMATION: msk u/s left hip, eval for glut tear and calcific tendinitis TECHNIQUE: Ivan-scale real-time ultrasound of the lateral hip with dynamic imaging and power Doppler examination was performed. Images were saved to the permanent image archive. v1-18. COMPARISON: Hip radiographs dated 12/12/2017 FINDINGS: AREA OF PAIN/SYMPTOMS: GLUTEUS MINIMUS TENDON: Tendinosis: Moderate Tearing: None. Hyperemia: None. Anterior Facet: Normal. GLUTEUS MEDIUS TENDON: Tendinosis: Moderate with small calcifications at the lateral facet insertion. Tearing: Attenuated in appearance possibly from prior partial tearing. Hyperemia: None. Lateral Facet: Mild degenerative changes. GLUTEUS MINIMUS MUSCULATURE: Bulk: Maintained Echogenicity: Normal Fascial Thickening: Normal GLUTEUS MEDIUS MUSCULATURE: Bulk: Maintained Echogenicity: Normal Fascial Thickening: Minimal. Dynamic Resisted Abduction: Normal. GLUTEUS ABBI MUSCLE: Bulk: Maintained Echogenicity: Normal Fascial Thickening: Normal. GREATER TROCHANTER BURSAE: Small amount of bursal fluid and bursal thickening. SUBGLUTEAL BURSAE: No findings of bursitis. ILIOTIBIAL BAND: The iliotibial band is normal in echogenicity but mildly increased in thickness. There is no hyperemia. Dynamic examination of the iliotibial band is normal. Distal gluteus abbi attachment appears intact. Tensor Fascia Christina insertion on the IT band is normal. IMPRESSION: MODERATE TENDINOSIS OF THE GLUTEUS MINIMUS AND MEDIUS. FINDINGS OF GREATER TROCHANTERIC BURSITIS. 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JORGE Transcribe Date/Time: Mar 03 2018 1:58P Dictated by : TIMO GREER MD This examination was interpreted and the report reviewed and electronically signed by: DAWOOD TAVERA MD on Mar 03 2018 2:39PM EST [id number] Observed: 02/27/2018 Status: COMPLETED Source: [place] 3:46 PM [facility] REPOSITORY HNO ID: [id number] Author: Meghna Chavarria (Pa) Service: (none) Author Type: Physician Hatchery Worker Type: Progress Notes Filed: 03/04/2018 10:42 PM Note Text: HISTORY AND PHYSICAL Soraya Faust 1960 REFERRING PHYSICIAN: James Bustamante MD CHIEF COMPLAINT: Consult (colonoscopy) HPI: The patient is a 57 year old female referred for endoscopy. Soraya notes history intermittent left lower quadrant discomfort, but also notes history of chronic back issues and thought the discomfort might be related to her back, states will feel like a spasm occasionally. She denies any change in bowel habits, weight changes, blood in stools, or black tarry stools. She denies any family history of colon cancer. The patient NOTES a history of acid reflux issues. States has been taking a PPI for some time with no improvement in symptoms. Denies prior EGD. Soraya has not undergone prior colonoscopy. The patient is being seen by me today at the request of Dr. Bustamante for my opinion and advice regarding screening colonoscopy. Patient's past medical history is significant for fibromyalgia, rheumatoid arthritis, lupus, osteoarthrosis. She follows with Dr. Bustamante for her chronic medical conditions and also follows with pain management-previously saw Dr. Polanco and now in the process of switching to Dr. Escobar. She denies any chest pain or shortness of breath. Notes she has had some nausea with anesthesia in the past but denies any other adverse reaction. PAST MEDICAL HISTORY Diagnosis Date - Adjustment disorder with depressed mood - Climacteric - Esophageal reflux 08/19/2006 - Fibromyalgia - Generalized osteoarthrosis, unspecified site - Insomnia, unspecified 08/19/2006 - Lupus erythematosus - Rheumatoid arthritis(714.0) Dr. Rojas treating - Sciatica 08/19/2006 PAST SURGICAL HISTORY Procedure Laterality Date - LAMINECTOMY,CERVICAL Laminectomy, cervical, c5=6 - LAMINECTOMY,LUMBAR Laminectomy, lumbar l5 and s1 - LIGATE FALLOPIAN TUBE 1985 Tubal ligation - tubal - LUMBAR SPINE FUSION,ANTER APPRCH 05/14/11 2 levels - PAST SURGICAL HISTORY OF 01/25/2009 Hysteroscopy DANDC - PAST SURGICAL HISTORY OF 01/25/2009 Novasure Ablation - PAST SURGICAL HISTORY OF 04/18/2010 Discogram of spine. - PAST SURGICAL HISTORY OF 09/2009 Spinal stimulator--NO MRIs !!!! - REDUCTION OF LARGE BREAST 06/2010 Current Outpatient Prescriptions: oxyCODONE-acetaminophen (PERCOCET) 5-325 mg tablet Take by mouth once daily as needed. predniSONE (DELTASONE) 5 mg tablet Take 1 tablet by mouth once daily as needed (Rheumatoid Arthritis flare). cetirizine (ZYRTEC) 10 mg tablet Take 1 tablet by mouth once daily. May take one additional tablet daily as needed hydrOXYzine HCl (ATARAX) 25 mg tablet Take 1 tablet by mouth every 8 hours as needed. PARoxetine (PAXIL) 10 mg tablet Take 1 tablet by mouth once daily. esomeprazole (NEXIUM) 40 mg capsule Take 1 capsule by mouth twice daily before meals. gabapentin (NEURONTIN) 600 mg tablet Take 2 tablets by mouth three times daily. flurandrenolide (CORDRAN) 0.05 % lotion Apply 1 application to affected area twice daily. folic acid-B6-B12 (FOLBEE) 2.5-25-1 mg tab Take 1 tablet by mouth once daily. pregabalin (LYRICA) 100 mg capsule Take 2 capsules by mouth once daily. Dr. Rojas morphine SR (MS CONTIN, ORAMORPH SR) 15 mg 12 hr tablet Take 1 tablet by mouth twice daily. Dr. Polanco tiZANidine HCl 6 mg capsule Take 6 mg by mouth three times daily. zolpidem (AMBIEN) 5 mg tablet Take 1 tablet by mouth at bedtime as needed for Sedation. methotrexate, PF, 25 mg/mL Soln 0.75 ml weekly () abatacept (ORENCIA) 125 mg/mL Syrg Inject subcutaneously. Vitamin E 400 unit ORAL Tab Take by mouth. CALCIUM CARBONATE/VITAMIN D3 (CALCIUM 600 + D ORAL) Take by mouth. peg 3350-Electrolytes (GOLYTELY) 236-22.74-6.74 -5.86 gram suspension Take 4,000 mL by mouth one time only for 1 dose. oxyCODONE-acetaminophen (PERCOCET) 5-325 mg tablet Take 1 tablet by mouth twice daily for 30 days.Earliest Fill Date: 11/28/17 No current facility-administered medications for this visit. 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 Social History Main Topics Smoking status: Former Smoker Packs/day: 0.50 Years: 22.00 Types: Cigarettes Quit date: 12/06/2016 Smokeless tobacco: Never Used Comment: 3 cigarettes per day Alcohol use: No Drug use: No Sexual activity: Yes Partners with: Male control/protection: Tubal Ligation FAMILY HISTORY: FAMILY HISTORY Problem Relation Age of Onset - Thyroid Mother hypothyroid, obese, hypertension, - Diabetes Mother type II - Diabetes Father depression, hypertension,one lobe removed from lung valvue replacement; type 2 DM - Hypertension Paternal Grandmother valvue replacement, colostomy bag because colon ca - Thyroid Sister over active thyroid, hypertension REVIEW OF SYMPTOMS: The review of systems data was entered by the nurse and reviewed by va Nursing Notes: Keiry Muñoz RN 02/27/2018 3:41 PM Signed REVIEW OF SYSTEMS: General: The patient notes fatigue, denies weight loss, denies weight gain, notes feeling hot, and denies feelings of cold. Eyes: The patient denies glaucoma, denies eye injury/surgery, wears glasses or contacts. Ear/Nose/Throat: The patient denies allergies, denies hayfever, denies ear infections, and denies bloody noses. Cardiovascular: The patient denies chest pain, denies heart disease, denies high blood pressure,denies cardiac stent, denies prior heart attack, denies irregular heart beat, denies high cholesterol, denies poor circulation, denies heart failure, other cardiac issues, notes claudication, notes cold feet, denies peripheral arterial stent. Respiratory: The patient denies tuberculosis, denies pneumonia, denies frequent cough, denies pulmonary embolism, denies shortness of breath, and denies coughing up blood. Gastrointestinal: The patient denies difficulty swallowing, notes acid reflux, denies ulcers, denies vomiting, denies jaundice/hepatitis, denies gallbladder problems, denies black or tarry stools, denies hemorrhoids, denies bleeding from rectum, denies diverticulitis, denies constipation, denies diarrhea, denies loss of stool control, and denies hernias. Kidney/Bladder: The patient denies kidney stones, denies urine infections, and denies bloody urine. Skin: The patient denies a history of skin cancer, denies bleeding/changing moles, and denies a history of skin rash. Neurologic: The patient denies a history of epilepsy/convulsions, denies headaches, denies head/spinal injuries, and denies stroke/TIA. Psychiatric: The patient denies psychiatric medications, denies depression, and denies voices, denies substance abuse. Endocrine: The patient denies thyroid disorders, denies diabetes, and denies hormonal problems. Hematologic: The patient denies a history of bruising, denies bleeding, and denies anemia, denies blood clots. Infections: The patient notes a history of measles and mumps, denies rheumatic fever, and denies sexually transmitted diseases. Musculoskeletal: The patient notes back pain/injury, notes back problems, denies sciatica, denies knee/foot trouble, NOTES arthritis, or denies gout. When was patient's last Mammogram screening? 09/02/2017 Last Colonoscopy: never Keiry Muñoz RN I have confirmed and edited as necessary, the PFSH and ROS obtained by others. PHYSICAL EXAMINATION: General: The patient is 57 year old female, well nourished, well hydrated in no acute distress. The patient is oriented to time, place, and person. VITALS: Blood pressure 166/81, pulse 101, weight 91.8 kg (202 lb 6.4 oz), SpO2 97 %. Body mass index is 35.85 kg/m?. HEENT: Normal cephalic, ataumatic, pupils are equally round, sclera are anicteric, mucous membranes are moist, oropharynx is clear. Neck has no masses, asymmetry or lymphadenopathy. Respiratory: Clear to auscultation and percussion. Normal respiratory excursion and pattern. Cardiac: Examination is regular rate and rhythm. Normal S1/S2 Abdominal exam: Soft, nontender, with no palpable masses. No hepatosplenomegaly. No palpable hernias. Rectal exam: exam deferred Extremities: no clubbing, cyanosis or edema. No adenopathy. Other: LABORATORY VALUES: As Noted RADIOLOGIC STUDIES: As Noted Assessment IMPRESSION: encounter for screening colonoscopy. GERD resistant to PPI, would recommend EGD in addition to the colonoscopy PLAN: We will plan for upper and lower endoscopy. We discussed the risks and benefits of the planned endoscopy. I have informed the patient that complications can occur including failure to complete the endoscopy and perforation. The patient had the opportunity to ask questions concerning the planned endoscopy. My staff has also explained the procedure to the patient in understandable terms and has given the patient printed material concerning the procedure. The patient freely consents to surgery. I plan to use golytely bowel preparation for endoscopy The patient takes prescription medications which I feel decrease the chance of successful sedation. I therefore plan for monitored anesthetic care. Diagnoses: (K21.9) Gastroesophageal reflux disease, esophagitis presence not specified (primary encounter diagnosis) (Z12.11) Encounter for screening for malignant neoplasm of colon My findings have been communicated to Dr. Bustamante via shared medical record. This note will be forwarded to Dr. James Bustamante MD. Return to Clinic: The patient is instructed to follow-up with me 1 week post operatively. MAURA Altman Observed: 02/27/2018 Status: COMPLETED Source: [place] 3:00 PM [facility] REPOSITORY Office Visit (GENSWS) SORAYA FAUST ([id number]) 1960 F Date Time Provider Department 02/27/18 3:00 PM MEGHNA CHAVARRIA) GENSWS During your visit today, we recorded the following information about you: Pulse Blood pressure Weight 101/minute 166/81 91.8 kg Keiry Muñoz RN 02/27/2018 3:41 PM Signed REVIEW OF SYSTEMS: General: The patient notes fatigue, denies weight loss, denies weight gain, notes feeling hot, and denies feelings of cold. Eyes: The patient denies glaucoma, denies eye injury/surgery, wears glasses or contacts. Ear/Nose/Throat: The patient denies allergies, denies hayfever, denies ear infections, and denies bloody noses. Cardiovascular: The patient denies chest pain, denies heart disease, denies high blood pressure,denies cardiac stent, denies prior heart attack, denies irregular heart beat, denies high cholesterol, denies poor circulation, denies heart failure, other cardiac issues, notes claudication, notes cold feet, denies peripheral arterial stent. Respiratory: The patient denies tuberculosis, denies pneumonia, denies frequent cough, denies pulmonary embolism, denies shortness of breath, and denies coughing up blood. Gastrointestinal: The patient denies difficulty swallowing, notes acid reflux, denies ulcers, denies vomiting, denies jaundice/hepatitis, denies gallbladder problems, denies black or tarry stools, denies hemorrhoids, denies bleeding from rectum, denies diverticulitis, denies constipation, denies diarrhea, denies loss of stool control, and denies hernias. Kidney/Bladder: The patient denies kidney stones, denies urine infections, and denies bloody urine. Skin: The patient denies a history of skin cancer, denies bleeding/changing moles, and denies a history of skin rash. Neurologic: The patient denies a history of epilepsy/convulsions, denies headaches, denies head/spinal injuries, and denies stroke/TIA. Psychiatric: The patient denies psychiatric medications, denies depression, and denies voices, denies substance abuse. Endocrine: The patient denies thyroid disorders, denies diabetes, and denies hormonal problems. Hematologic: The patient denies a history of bruising, denies bleeding, and denies anemia, denies blood clots. Infections: The patient notes a history of measles and mumps, denies rheumatic fever, and denies sexually transmitted diseases. Musculoskeletal: The patient notes back pain/injury, notes back problems, denies sciatica, denies knee/foot trouble, NOTES arthritis, or denies gout. When was patient's last Mammogram screening? 09/02/2017 Last Colonoscopy: never Keiry Chavarria PA-C 03/04/2018 10:42 PM Signed HISTORY AND PHYSICAL Soraya Faust 1960 REFERRING PHYSICIAN: James Bustamante MD CHIEF COMPLAINT: Consult (colonoscopy) HPI: The patient is a 57 year old female referred for endoscopy. Soraya notes history intermittent left lower quadrant discomfort, but also notes history of chronic back issues and thought the discomfort might be related to her back, states will feel like a spasm occasionally. She denies any change in bowel habits, weight changes, blood in stools, or black tarry stools. She denies any family history of colon cancer. The patient NOTES a history of acid reflux issues. States has been taking a PPI for some time with no improvement in symptoms. Denies prior EGD. Soraya has not undergone prior colonoscopy. The patient is being seen by me today at the request of Dr. Bustamante for my opinion and advice regarding screening colonoscopy. Patient's past medical history is significant for fibromyalgia, rheumatoid arthritis, lupus, osteoarthrosis. She follows with Dr. Bustamante for her chronic medical conditions and also follows with pain management-previously saw Dr. Polanco and now in the process of switching to Dr. Escobar. She denies any chest pain or shortness of breath. Notes she has had some nausea with anesthesia in the past but denies any other adverse reaction. PAST MEDICAL HISTORY Diagnosis Date - Adjustment disorder with depressed mood - Climacteric - Esophageal reflux 08/19/2006 - Fibromyalgia - Generalized osteoarthrosis, unspecified site - Insomnia, unspecified 08/19/2006 - Lupus erythematosus - Rheumatoid arthritis(714.0) Dr. Rojas treating - Sciatica 08/19/2006 PAST SURGICAL HISTORY Procedure Laterality Date - LAMINECTOMY,CERVICAL Laminectomy, cervical, c5=6 - LAMINECTOMY,LUMBAR Laminectomy, lumbar l5 and s1 - LIGATE FALLOPIAN TUBE 1985 Tubal ligation - tubal - [facility] levels - PAST SURGICAL HISTORY OF 01/25/2009 Hysteroscopy DANMT - PAST SURGICAL HISTORY OF 01/25/2009 Novasure Ablation - PAST SURGICAL HISTORY OF 04/18/2010 Discogram of spine. - PAST SURGICAL HISTORY OF 09/2009 Spinal stimulator--NO MRIs !!!! - REDUCTION OF LARGE BREAST 06/2010 Current Outpatient Prescriptions: oxyCODONE-acetaminophen (PERCOCET) 5-325 mg tablet Take by mouth once daily as needed. predniSONE (DELTASONE) 5 mg tablet Take 1 tablet by mouth once daily as needed (Rheumatoid Arthritis flare). cetirizine (ZYRTEC) 10 mg tablet Take 1 tablet by mouth once daily. May take one additional tablet daily as needed hydrOXYzine HCl (ATARAX) 25 mg tablet Take 1 tablet by mouth every 8 hours as needed. PARoxetine (PAXIL) 10 mg tablet Take 1 tablet by mouth once daily. esomeprazole (NEXIUM) 40 mg capsule Take 1 capsule by mouth twice daily before meals. gabapentin (NEURONTIN) 600 mg tablet Take 2 tablets by mouth three times daily. flurandrenolide (CORDRAN) 0.05 % lotion Apply 1 application to affected area twice daily. folic acid-B6-B12 (FOLBEE) 2.5-25-1 mg tab Take 1 tablet by mouth once daily. pregabalin (LYRICA) 100 mg capsule Take 2 capsules by mouth once daily. Dr. Rojas morphine SR (MS CONTIN, ORAMORPH SR) 15 mg 12 hr tablet Take 1 tablet by mouth twice daily. Dr. Polanco tiZANidine HCl 6 mg capsule Take 6 mg by mouth three times daily. zolpidem (AMBIEN) 5 mg tablet Take 1 tablet by mouth at bedtime as needed for Sedation. methotrexate, PF, 25 mg/mL Soln 0.75 ml weekly () abatacept (ORENCIA) 125 mg/mL Syrg Inject subcutaneously. Vitamin E 400 unit ORAL Tab Take by mouth. CALCIUM CARBONATE/VITAMIN D3 (CALCIUM 600 + D ORAL) Take by mouth. peg 3350-Electrolytes (GOLYTELY) 236-22.74-6.74 -5.86 gram suspension Take 4,000 mL by mouth one time only for 1 dose. oxyCODONE-acetaminophen (PERCOCET) 5-325 mg tablet Take 1 tablet by mouth twice daily for 30 days.Earliest Fill Date: 11/28/17 No current facility-administered medications for this visit. 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 Social History Main Topics Smoking status: Former Smoker Packs/day: 0.50 Years: 22.00 Types: Cigarettes Quit date: 12/06/2016 Smokeless tobacco: Never Used Comment: 3 cigarettes per day Alcohol use: No Drug use: No Sexual activity: Yes Partners with: Male control/protection: Tubal Ligation FAMILY HISTORY: FAMILY HISTORY Problem Relation Age of Onset - Thyroid Mother hypothyroid, obese, hypertension, - Diabetes Mother type II - Diabetes Father depression, hypertension,one lobe removed from lung valvue replacement; type 2 DM - Hypertension Paternal Grandmother valvue replacement, colostomy bag because colon ca - Thyroid Sister over active thyroid, hypertension REVIEW OF SYMPTOMS: The review of systems data was entered by the nurse and reviewed by me Nursing Notes: Keiry Muñoz RN 02/27/2018 3:41 PM Signed REVIEW OF SYSTEMS: General: The patient notes fatigue, denies weight loss, denies weight gain, notes feeling hot, and denies feelings of cold. Eyes: The patient denies glaucoma, denies eye injury/surgery, wears glasses or contacts. Ear/Nose/Throat: The patient denies allergies, denies hayfever, denies ear infections, and denies bloody noses. Cardiovascular: The patient denies chest pain, denies heart disease, denies high blood pressure,denies cardiac stent, denies prior heart attack, denies irregular heart beat, denies high cholesterol, denies poor circulation, denies heart failure, other cardiac issues, notes claudication, notes cold feet, denies peripheral arterial stent. Respiratory: The patient denies tuberculosis, denies pneumonia, denies frequent cough, denies pulmonary embolism, denies shortness of breath, and denies coughing up blood. Gastrointestinal: The patient denies difficulty swallowing, notes acid reflux, denies ulcers, denies vomiting, denies jaundice/hepatitis, denies gallbladder problems, denies black or tarry stools, denies hemorrhoids, denies bleeding from rectum, denies diverticulitis, denies constipation, denies diarrhea, denies loss of stool control, and denies hernias. Kidney/Bladder: The patient denies kidney stones, denies urine infections, and denies bloody urine. Skin: The patient denies a history of skin cancer, denies bleeding/changing moles, and denies a history of skin rash. Neurologic: The patient denies a history of epilepsy/convulsions, denies headaches, denies head/spinal injuries, and denies stroke/TIA. Psychiatric: The patient denies psychiatric medications, denies depression, and denies voices, denies substance abuse. Endocrine: The patient denies thyroid disorders, denies diabetes, and denies hormonal problems. Hematologic: The patient denies a history of bruising, denies bleeding, and denies anemia, denies blood clots. Infections: The patient notes a history of measles and mumps, denies rheumatic fever, and denies sexually transmitted diseases. Musculoskeletal: The patient notes back pain/injury, notes back problems, denies sciatica, denies knee/foot trouble, NOTES arthritis, or denies gout. When was patient's last Mammogram screening? 09/02/2017 Last Colonoscopy: never Keiry Muñoz RN I have confirmed and edited as necessary, the PFSH and ROS obtained by others. PHYSICAL EXAMINATION: General: The patient is 57 year old female, well nourished, well hydrated in no acute distress. The patient is oriented to time, place, and person. VITALS: Blood pressure 166/81, pulse 101, weight 91.8 kg (202 lb 6.4 oz), SpO2 97 %. Body mass index is 35.85 kg/m?. HEENT: Normal cephalic, ataumatic, pupils are equally round, sclera are anicteric, mucous membranes are moist, oropharynx is clear. Neck has no masses, asymmetry or lymphadenopathy. Respiratory: Clear to auscultation and percussion. Normal respiratory excursion and pattern. Cardiac: Examination is regular rate and rhythm. Normal S1/S2 Abdominal exam: Soft, nontender, with no palpable masses. No hepatosplenomegaly. No palpable hernias. Rectal exam: exam deferred Extremities: no clubbing, cyanosis or edema. No adenopathy. Other: LABORATORY VALUES: As Noted RADIOLOGIC STUDIES: As Noted Assessment IMPRESSION: encounter for screening colonoscopy. GERD resistant to PPI, would recommend EGD in addition to the colonoscopy PLAN: We will plan for upper and lower endoscopy. We discussed the risks and benefits of the planned endoscopy. I have informed the patient that complications can occur including failure to complete the endoscopy and perforation. The patient had the opportunity to ask questions concerning the planned endoscopy. My staff has also explained the procedure to the patient in understandable terms and has given the patient printed material concerning the procedure. The patient freely consents to surgery. I plan to use golytely bowel preparation for endoscopy The patient takes prescription medications which I feel decrease the chance of successful sedation. I therefore plan for monitored anesthetic care. Diagnoses: (K21.9) Gastroesophageal reflux disease, esophagitis presence not specified (primary encounter diagnosis) (Z12.11) Encounter for screening for malignant neoplasm of colon My findings have been communicated to Dr. Bustamante via shared medical record. This note will be forwarded to Dr. James Bustamante MD. Return to Clinic: The patient is instructed to follow-up with me 1 week post operatively. Meghna Chavarria PA-C Referring Provider: JAMES BUSTAMANTE [[id number]] Allergies As of Date: 02/27/2018 Noted Allergy Reaction ADHESIVE 03/05/2011 2 - Rash CELEXA (CITALOPRAM) 01/07/2009 8 - GI Upset CODEINE 08/19/2006 Comments: Motion kind of sickness DOXYCYCLINE 04/01/2009 8 - GI Upset Date Reviewed: 02/27/2018 Reviewed by: Meghna (Rodger) - Fully Assessed Reason for Visit: Consult [173] Cmt: colonoscopy Primary Visit Diagnosis:Gastroesophageal reflux disease, esophagitis presence not specified [K21.9] Other Visit Diagnosis:Encounter for screening for malignant neoplasm of colon [Z12.11] Order(s):EGD [[id number]] Order #: [id number] FUTURE COLONOSCOPY SCRN NOT HIGH RISK [[id number]] Order #: [id number] FUTURE [] peg 3350-Electrolytes (GOLYTELY) 236-22.74-6.74 -5.86 gram suspensionTake 4,000 mL by mouth one time only for 1 dose.Disp: 1 BottleRfl: 0 Prescriptions as of 02/27/2018 Sig: OXYCODONE-ACETAMINOPHEN 5 MG-* Take by mouth once daily as n* PREDNISONE 5 MG TABLET Take 1 tablet by mouth once d* CETIRIZINE 10 MG TABLET Take 1 tablet by mouth once d* HYDROXYZINE HCL 25 MG TABLET Take 1 tablet by mouth every * PAROXETINE 10 MG TABLET Take 1 tablet by mouth once d* ESOMEPRAZOLE MAGNESIUM 40 MG * Take 1 capsule by mouth twice* GABAPENTIN 600 MG TABLET Take 2 tablets by mouth three* FLURANDRENOLIDE 0.05 % LOTION Apply 1 application to affect* FOLIC ACID-VIT B6-VIT B12 2.5* Take 1 tablet by mouth once d* PREGABALIN 100 MG CAPSULE Take 2 capsules by mouth once* MORPHINE ER 15 MG TABLET,EXTE* Take 1 tablet by mouth twice * TIZANIDINE 6 MG CAPSULE Take 6 mg by mouth three time* ZOLPIDEM 5 MG TABLET Take 1 tablet by mouth at bed* METHOTREXATE SODIUM (PF) 25 M* 0.75 ml weekly () * ABATACEPT 125 MG/ML SUBCUTANE* Inject subcutaneously. * VITAMIN E 400 UNIT TABLET Take by mouth. * CALCIUM 600 + D ORAL Take by mouth. PEG 3350-ELECTROLYTES 236 GRA* Take 4,000 mL by mouth one ti* OXYCODONE-ACETAMINOPHEN 5 MG-* Take 1 tablet by mouth twice * Problem List As Of Date 02/27/2018 Noted Resolved Rheumatoid arthritis (HCC) [M06.9] GENERAL OSTEOARTHROSIS [M15.9] ADJUSTMENT DISORDER WITH DEPRESSED MOOD [F43.21] LUPUS ERYTHEMATOSUS [L93.0] ESOPHAGEAL REFLUX [K21.9] INVALID FOR* INSOMNIA NOS [G47.00] INVALID FOR* SCIATICA [M54.30] INVALID FOR* Varicose Veins of Leg with Swelling [I83.899] INVALID FOR* More... 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] INVALID FOR* Contact dermatitis and other eczema, due to uns*INVALID FOR* Postinflammatory hyperpigmentation [L81.0] INVALID FOR* Scars [L90.5] INVALID FOR* Superficial injury NEC [T07.XXXA] INVALID FOR* Unspecified pruritic disorder [L29.9] INVALID FOR*07/09/2013 Other specified disease of hair and hair follic*INVALID FOR* Prurigo [L28.2] INVALID FOR* Lichenification and lichen simplex chronicus [L*INVALID FOR* Dyschromia, unspecified [L81.9] INVALID FOR* Scar condition and fibrosis of skin [L90.5] INVALID FOR* Neurodermatitis [L28.0] INVALID FOR* Tobacco use disorder [F17.200] INVALID FOR* Chronic lower back pain [M54.5, G89.29] INVALID FOR* Nail avulsion, toe [S91.209A] INVALID FOR*09/16/2012 Climacteric [N95.1] INVALID FOR* Kidney stone [N20.0] INVALID FOR* Pelvic pressure in female [R10.2] INVALID FOR* Obesity (BMI 30.0-34.9) [E66.9] INVALID FOR* Screening for colon cancer [Z12.11] INVALID FOR* More... GERD (gastroesophageal reflux disease) [K21.9] INVALID FOR* More... Visit Notes: >> Keiry Muñoz RN Quin Feb 27, 2018 3:39 PM Status: Signed REVIEW OF SYSTEMS: General: The patient notes fatigue, denies weight loss, denies weight gain, notes feeling hot, and denies feelings of cold. Eyes: The patient denies glaucoma, denies eye injury/surgery, wears glasses or contacts. Ear/Nose/Throat: The patient denies allergies, denies hayfever, denies ear infections, and denies bloody noses. Cardiovascular: The patient denies chest pain, denies heart disease, denies high blood pressure,denies cardiac stent, denies prior heart attack, denies irregular heart beat, denies high cholesterol, denies poor circulation, denies heart failure, other cardiac issues, notes claudication, notes cold feet, denies peripheral arterial stent. Respiratory: The patient denies tuberculosis, denies pneumonia, denies frequent cough, denies pulmonary embolism, denies shortness of breath, and denies coughing up blood. Gastrointestinal: The patient denies difficulty swallowing, notes acid reflux, denies ulcers, denies vomiting, denies jaundice/hepatitis, denies gallbladder problems, denies black or tarry stools, denies hemorrhoids, denies bleeding from rectum, denies diverticulitis, denies constipation, denies diarrhea, denies loss of stool control, and denies hernias. Kidney/Bladder: The patient denies kidney stones, denies urine infections, and denies bloody urine. Skin: The patient denies a history of skin cancer, denies bleeding/changing moles, and denies a history of skin rash. Neurologic: The patient denies a history of epilepsy/convulsions, denies headaches, denies head/spinal injuries, and denies stroke/TIA. Psychiatric: The patient denies psychiatric medications, denies depression, and denies voices, denies substance abuse. Endocrine: The patient denies thyroid disorders, denies diabetes, and denies hormonal problems. Hematologic: The patient denies a history of bruising, denies bleeding, and denies anemia, denies blood clots. Infections: The patient notes a history of measles and mumps, denies rheumatic fever, and denies sexually transmitted diseases. Musculoskeletal: The patient notes back pain/injury, notes back problems, denies sciatica, denies knee/foot trouble, NOTES arthritis, or denies gout. When was patient's last Mammogram screening? 09/02/2017 Last Colonoscopy: never Keiry Muñoz RN Prescriptions ordered this encounter Disp Refills Start End PEG 3350-ELECTROLYTES 236 GRAM-22.74* 1 Alessandro* 0 02/27/2018 02/27/2018 Route: ORAL Sig: Take 4,000 mL by mouth one time only for 1 dose. Follow-up and Disposition History Recorded Encounter Status:Closed by MEGHNA CHAVARRIA PA-C on 03/04/18 CBC W/DIFF, AUTOMATED Collected: 01/08/2018 Status: F Source: [place] 3:13 PM [facility] REPOSITORY TYPE CODE TESTS RESULT OUT OF RANGE REFERENCE UNITS LAB L100.1000 4.4-11.0 K/mm3 Normal WBC 5.1 LAB L100.1200 4.2-5.4 M/mm3 Low RBC 4.17 LAB L100.1300 12.0-15.0 g/dl Normal HGB 12.2 LAB L100.1400 37-47 % Normal HCT 40.1 LAB L100.1500 81-99 fL Normal MCV 96.2 LAB L100.1600 27.0-32.0 pg Normal MCH 29.3 LAB L100.1700 32-36 g/gl Low MCHC 30.4 LAB L100.1810 11.6-14.6 % Normal RDW CV 12.9 LAB L100.1820 35.1-43.9 fl Normal RDW SD 43.9 LAB L100.1900 150-450 K/mm3 Normal PLT 207 LAB L100.2000 6.2-12.0 fl Normal MPV 8.9 LAB L100.2100 47-70 % Normal NEUT% 48.2 LAB L100.2200 19-41 % Normal LY% 36.4 LAB L100.2300 0-10 % High MONO% 11.7 LAB L100.2400 0-5 % Normal EO% 3.1 LAB L100.2500 0-1 % Normal BASO% 0.4 LAB L100.2550 0.0-0.9 % Normal IM GRAN % 0.200 Result Comment: IG% - Immature Granulocytes (promyelocytes, myelocytes and metamyelocytes) > 1% indicates that a LEFT SHIFT is Present. LAB L100.2620 2.0-7.7 X10 3/uL Normal Absolute Neut 2.5 LAB L100.2720 0.83-4.51 X10 3/ul Normal Absolute Lymph 1.87 Performed By: #### L100.0100 #### [facility] [address] [place], [address] COMPREHENSIVE METABOLIC Collected: 01/08/2018 Status: F Source: [facility] 3:13 PM [facility] REPOSITORY TYPE CODE TESTS RESULT OUT OF RANGE REFERENCE UNITS LAB L501.0100 74-106 mg/dL Normal GLU 93 Result Comment: Please note revised GLUCOSE reference range effective 2017. LAB L501.1000 7-18 mg/dL High BUN 22 LAB L501.1100 0.55-1.02 mg/dL Normal CREAT,SERUM 0.62 Result Comment: The validity of the calculated GFR AND GFRAA in patients over 70 years has not been determined. Clinical correlation is essential. LAB L501.1110 >60 mL/min Normal EST GFR 107 Result Comment: Non- GFR Calc LAB L501.1115 >60 mL/min Normal EST GFR - AA 129 Result Comment: GFR Calc LAB L501.1300 10-20 RATIO High BUN/CRE 35.7 LAB L501.1500 6.4-8.2 g/dL T Normal PROT 6.9 LAB L501.1800 3.2-5.0 g/dL Normal ALB 3.4 LAB L501.1950 2.2-4.2 g/dL Normal GLOB 3.5 LAB L501.2000 0.9-2.4 RATIO Normal A/G 1.0 LAB L501.2200 8.5-10.1 mg/dL Low CA 8.3 LAB L501.4100 15-37 U/L Normal AST 26 LAB L501.4305 45-117 U/L High ALK P 124 LAB L501.4405 13-56 U/L Normal ALT 41 LAB L501.4600 0.20-1.00 mg/dL T Normal BILI 0.30 LAB L501.5300 136-145 mmol/L NA Normal 143 LAB L501.5600 3.5-5.1 mmol/L K Normal 3.9 LAB L501.5900 98-107 mmol/L CL Normal 103 LAB L501.6100 21.0-32.0 mmol/L Normal CO2 31.0 LAB L501.6200 5-15 Normal GAP 9 Performed By: #### L500.4050 #### [facility] [address] [place], [address] PROGRESS Observed: 12/13/2017 Status: COMPLETED Source: [place] 11:54 AM [facility] REPOSITORY HNO ID: [id number] Author: Tasha Beard Service: (none) Author Type: Equity Director Type: Progress Notes Filed: 12/13/2017 11:54 AM Note Text: Radiology Service Progress Note PATIENT NAME: Soraya Faust DATE OF SERVICE: December 13, 2017 TIME: 11:54 AM PATIENT IDENTITY VERIFICATION COMPLETED USING TWO (2) METHODS: Patient confirmed name verbally and Date of . PATIENT GENDER DATA: Female. status: : No status: N/A PATIENT RELEVANT IMPLANT DATA REVIEWED: Not Applicable RADIOLOGY DEPARTMENT: Ultrasound PERIPHERAL IV DATA: Not applicable SIGNED BY: TASHA BEARD RDMS Kieran December 13, 2017 11:54 AM US FEMALE PELVIS Observed: 12/13/2017 Status: F [facility] REPOSITORY * * *Final Report* * * DATE OF EXAM: Dec 13 2017 11:53AM WRU [id number] - US FEMALE PELVIS TRANSVAG / PROCEDURE REASON: multiple diagnoses * * * * Physician Interpretation * * * * EXAMINATION: TRANSVAGINAL AND LIMITED TRANSABDOMINAL PELVIC ULTRASOUND CLINICAL HISTORY: Left lower quadrant and Pelvic/perineal pain. History of endometriosis. Bilateral salpingoectomy TECHNIQUE: Sonography of the pelvis was performed by transvaginal and transabdominal (limited) techniques. Images were obtained and stored in a permanent archive. MQ: UFP_1 COMPARISON: Comparison is made to prior ultrasound dated and February 2011 LIMITATIONS: Patient body habitus and shadowing from bowel gas RESULT: Uterus size: 5.6 x 3.4 x 2.1 cm -Orientation: Anteverted -Myometrium: Normal sonographic appearance. Previous leiomyomata described in 2010 are not clearly identified. -Endometrial echo complex: 1.2 mm -Cervix: normal Right ovary: Not visualized Left ovary: Not visualized Pelvis free fluid: None. IMPRESSION: Unremarkable pelvic ultrasound. 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[employer] Transcribe Date/Time: Dec 13 2017 3:37P Dictated by : ANTWAN BARCLAY MD This examination was interpreted and the report reviewed and electronically signed by: ANTWAN BARCLAY MD on Dec 13 2017 3:42PM EST [id number] XR HIP 3V PELV+ Observed: 12/12/2017 Status: F Source: [place] AP/LAT LT 3:54 PM [facility] REPOSITORY * * *Final Report* * * DATE OF EXAM: Dec 12 2017 3:54PM WOX [id number] - XR HIP 3V PELV+ AP/LAT LT / PROCEDURE REASON: multiple diagnoses * * * * Physician Interpretation * * * * HISTORY: Pelvic pain COMPARISON: There are no prior relevant examinations available for comparison. RESULT: Single recumbent radiograph of the bony pelvis demonstrates the bony pelvic ring intact. Bony structures are osteopenic. The hips are bilaterally symmetric without acute process. Mild superior joint space narrowing is noted bilaterally and is symmetric. The soft tissues are unremarkable. IMPRESSION: Osteopenia and mild joint space narrowing involving both hips symmetrically. No acute process. 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[employer] Transcribe Date/Time: Dec 12 2017 4:04P Dictated by : ANTWAN BARCLAY MD This examination was interpreted and the report reviewed and electronically signed by: ANTWAN BARCLAY MD on Dec 12 2017 4:06PM EST [id number] PROGRESS Observed: 12/12/2017 Status: COMPLETED Source: [place] 3:40 PM [facility] REPOSITORY HNO ID: [id number] Author: Ramona Grimes Rt Service: (none) Author Type: (none) Type: Progress Notes Filed: 12/12/2017 3:53 PM Note Text: Radiology Service Progress Note PATIENT NAME: Soraya Faust DATE OF SERVICE: December 12, 2017 TIME: 3:40 PM PATIENT IDENTITY VERIFICATION COMPLETED USING TWO (2) METHODS: Patient confirmed name verbally and Date of . PATIENT GENDER DATA: Female. status: : No status: NO. PATIENT RELEVANT IMPLANT DATA REVIEWED: Not Applicable RADIOLOGY DEPARTMENT: General X-ray: Exam(s) Completed: Pelvis X-Ray: Pelvis with Hip Left PERIPHERAL IV DATA: Not applicable SIGNED BY: Ramona Blackman December 12, 2017 3:40 PM PROGRESS Observed: 12/12/2017 Status: COMPLETED Source: [place] 3:10 PM [facility] REPOSITORY O ID: [id number] Author: Jeri Alejandre Service: (none) Author Type: Nurse Practitioner Type: Progress Notes Filed: 12/12/2017 4:47 PM Note Text: CC: Patient presents with: Recheck: left leg pain HPI Soraya Faust is a 57 year old female who presents with hip pain/LLQ pain that started 4 weeks ago. Pain started suddenly and is getting worse. Pain is located to the LLQ into the groin and described as dull ache with a sharpness to it. Rated as 6/10. Denies a recent or remote history of hip injury or trauma. Pain is aggravated by prolonged sitting and sleeping on her side. Alleviated by rest and pain medications prescribed for other conditions help. Patient reports chronic back pain and radicular hip pain on the left to the front of the thigh and to the back of the calf. Previous work up completed to rule out DVT, d-dimer elevated however both chest CT and [place] Duplex were negative for clot. Patient denies fever, chills, abdominal pain, nausea, vomiting, diarrhea or urinary symptoms. She does note previous hx of ovarian cysts monitored by serial transvaginal US ~8 years ago. REVIEW OF SYSTEMS General: no fevers, no chills, no night sweats, no recurrent infections, no change in appetite, no change in energy and no significant changes in weight Respiratory: no cough, no wheezing, no shortness of breath, no hemoptysis Cardiovascular: no chest pain, no chest pressure, no palpitations and no swelling GI: No nausea, vomiting, or diarrhea and Positive for abdominal discomfort LLQ pain : No history of dysuria, frequency or incontinence Musculoskeletal: See HPI Neurologic: No headache, weakness, numbness, tingling, neck stiffness, tremor, vertigo, dizziness, memory loss, syncope. PAST MEDICAL HISTORY Diagnosis Date - Adjustment disorder with depressed mood - Climacteric - Esophageal reflux 08/19/2006 - Generalized osteoarthrosis, unspecified site - Insomnia, unspecified 08/19/2006 - Lupus erythematosus - Rheumatoid arthritis(714.0) Dr. Rojas treating - Sciatica 08/19/2006 PAST SURGICAL HISTORY Procedure Laterality Date - LAMINECTOMY,CERVICAL Laminectomy, cervical, c5=6 - LAMINECTOMY,LUMBAR Laminectomy, lumbar l5 and s1 - LIGATE FALLOPIAN TUBE 1986 Tubal ligation - tubal - LUMBAR SPINE FUSION,ANTER APPRCH 05/14/11 2 levels - PAST SURGICAL HISTORY OF 01/25/2009 Hysteroscopy DANDC - PAST SURGICAL HISTORY OF 01/25/2009 Novasure Ablation - PAST SURGICAL HISTORY OF 04/18/2010 Discogram of spine. - PAST SURGICAL HISTORY OF 09/2009 Spinal stimulator--NO MRIs !!!! - REDUCTION OF LARGE BREAST 06/2010 ALLERGIES Adhesive; Celexa [Citalopram]; Codeine; Doxycycline MEDICATIONS oxyCODONE-acetaminophen (PERCOCET) 5-325 mg tablet Take 1 tablet by mouth twice daily for 30 days.Earliest Fill Date: 11/28/17 predniSONE (DELTASONE) 5 mg tablet Take 1 tablet by mouth once daily as needed (Rheumatoid Arthritis flare). cetirizine (ZYRTEC) 10 mg tablet Take 1 tablet by mouth once daily. May take one additional tablet daily as needed hydrOXYzine HCl (ATARAX) 25 mg tablet Take 1 tablet by mouth every 8 hours as needed. PARoxetine (PAXIL) 10 mg tablet Take 1 tablet by mouth once daily. esomeprazole (NEXIUM) 40 mg capsule Take 1 capsule by mouth twice daily before meals. gabapentin (NEURONTIN) 600 mg tablet Take 2 tablets by mouth three times daily. flurandrenolide (CORDRAN) 0.05 % lotion Apply 1 application to affected area twice daily. folic acid-B6-B12 (FOLBEE) 2.5-25-1 mg tab Take 1 tablet by mouth once daily. pregabalin (LYRICA) 100 mg capsule Take 2 capsules by mouth once daily. Dr. Rojas morphine SR (MS CONTIN, ORAMORPH SR) 15 mg 12 hr tablet Take 1 tablet by mouth twice daily. Dr. Polanco tiZANidine HCl 6 mg capsule Take 6 mg by mouth three times daily. zolpidem (AMBIEN) 5 mg tablet Take 1 tablet by mouth at bedtime as needed for Sedation. methotrexate, PF, 25 mg/mL Soln 0.75 ml weekly () abatacept (ORENCIA) 125 mg/mL Syrg Inject subcutaneously. Vitamin E 400 unit ORAL Tab Take by mouth. CALCIUM CARBONATE/VITAMIN D3 (CALCIUM 600 + D ORAL) Take by mouth. FAMILY HISTORY Problem Relation Age of Onset - Diabetes Father depression, hypertension,one lobe removed from lung valvue replacement; type 2 DM - Thyroid Mother hypothyroid, obese, hypertension, - Thyroid Sister over active thyroid, hypertension - Hypertension Paternal Grandmother valvue replacement, colostomy bag because colon ca - Diabetes Mother type II Social History Substance Use Topics - Smoking status: Former Smoker Packs/day: 0.50 Years: 22.00 Types: Cigarettes Quit date: 12/06/2016 - Smokeless tobacco: Never Used Comment: 3 cigarettes per day - Alcohol use No PHYSICAL EXAM BP 124/80 Pulse 91 Resp 20 Wt 93 kg (205 lb) BMI 36.31 kg/m? No tenderness about the hip 90 - 0 flexion/extension Positive distal pulses Negative Jaxon's, calf tenderness or palpable cords Lungs: Lungs clear to auscultation, No wheezing, rales or rhonchi Heart: regular rate and rhythm, without murmur Abdomen: soft, nondistended, moderate LLQ tenderness, no hepatosplenomegaly or masses ASSESSMENT/PLAN: 1. Left groin pain - ICD9: 789.09, ICD10: R10.32 (primary diagnosis) Etiology unclear Differential Diagnosis includes Gastritis, Constipation, Ovarian cyst, referred back pain or degenerative changes to left hip from overuse - Work up with Ultrasound transvaginal and hip xray - Treatment for constipation discussed - Follow to be determined by diagnostic test results sooner if worsening of symptoms - US FEMALE PELVIS TRANSVAG - XR HIP GENERAL 3V PELV/AP/LAT LT 2. Pelvic pain - ICD9: [id number], ICD10: R10.2 - Plan as above, see #1 - US FEMALE PELVIS TRANSVAG - XR HIP GENERAL 3V PELV/AP/LAT LT 3. Hx of ovarian cyst - ICD9: V13.29, ICD10: Z87.42 - US FEMALE PELVIS TRANSVAG Jeri Alejandre APRN.CNP CNOV Observed: 12/12/2017 Status: COMPLETED Source: [place] 2:40 PM [facility] REPOSITORY Office Visit (INTMWS) SORAYA FAUST ([id number]) 1960 F Date Time Provider Department 12/12/17 2:40 PM JERI ALEJANDRE (JET) INTMWS During your visit today, we recorded the following information about you: Pulse Respiration Blood pressure Weight 91/minute 20/minute 124/80 93 kg Jeri Alejandre APRN.CNP 12/12/2017 4:47 PM Signed CC: Patient presents with: Recheck: left leg pain HPI Soraya Aguilar Galileo is a 57 year old female who presents with hip pain/LLQ pain that started 4 weeks ago. Pain started suddenly and is getting worse. Pain is located to the LLQ into the groin and described as dull ache with a sharpness to it. Rated as 6/10. Denies a recent or remote history of hip injury or trauma. Pain is aggravated by prolonged sitting and sleeping on her side. Alleviated by rest and pain medications prescribed for other conditions help. Patient reports chronic back pain and radicular hip pain on the left to the front of the thigh and to the back of the calf. Previous work up completed to rule out DVT, d-dimer elevated however both chest CT and [place] Duplex were negative for clot. Patient denies fever, chills, abdominal pain, nausea, vomiting, diarrhea or urinary symptoms. She does note previous hx of ovarian cysts monitored by serial transvaginal US ~8 years ago. REVIEW OF SYSTEMS General: no fevers, no chills, no night sweats, no recurrent infections, no change in appetite, no change in energy and no significant changes in weight Respiratory: no cough, no wheezing, no shortness of breath, no hemoptysis Cardiovascular: no chest pain, no chest pressure, no palpitations and no swelling GI: No nausea, vomiting, or diarrhea and Positive for abdominal discomfort LLQ pain : No history of dysuria, frequency or incontinence Musculoskeletal: See HPI Neurologic: No headache, weakness, numbness, tingling, neck stiffness, tremor, vertigo, dizziness, memory loss, syncope. PAST MEDICAL HISTORY Diagnosis Date - Adjustment disorder with depressed mood - Climacteric - Esophageal reflux 08/19/2006 - Generalized osteoarthrosis, unspecified site - Insomnia, unspecified 08/19/2006 - Lupus erythematosus - Rheumatoid arthritis(714.0) Dr. Rojas treating - Sciatica 08/19/2006 PAST SURGICAL HISTORY Procedure Laterality Date - LAMINECTOMY,CERVICAL Laminectomy, cervical, c5=6 - LAMINECTOMY,LUMBAR Laminectomy, lumbar l5 and s1 - LIGATE FALLOPIAN TUBE 1985 Tubal ligation - tubal - LUMBAR SPINE FUSION,ANTER APPRCH 05/14/11 2 levels - PAST SURGICAL HISTORY OF 01/25/2009 Hysteroscopy DANDC - PAST SURGICAL HISTORY OF 01/25/2009 Novasure Ablation - PAST SURGICAL HISTORY OF 04/18/2010 Discogram of spine. - PAST SURGICAL HISTORY OF 09/2009 Spinal stimulator--NO MRIs !!!! - REDUCTION OF LARGE BREAST 06/2010 ALLERGIES Adhesive; Celexa [Citalopram]; Codeine; Doxycycline MEDICATIONS oxyCODONE-acetaminophen (PERCOCET) 5-325 mg tablet Take 1 tablet by mouth twice daily for 30 days.Earliest Fill Date: 11/28/17 predniSONE (DELTASONE) 5 mg tablet Take 1 tablet by mouth once daily as needed (Rheumatoid Arthritis flare). cetirizine (ZYRTEC) 10 mg tablet Take 1 tablet by mouth once daily. May take one additional tablet daily as needed hydrOXYzine HCl (ATARAX) 25 mg tablet Take 1 tablet by mouth every 8 hours as needed. PARoxetine (PAXIL) 10 mg tablet Take 1 tablet by mouth once daily. esomeprazole (NEXIUM) 40 mg capsule Take 1 capsule by mouth twice daily before meals. gabapentin (NEURONTIN) 600 mg tablet Take 2 tablets by mouth three times daily. flurandrenolide (CORDRAN) 0.05 % lotion Apply 1 application to affected area twice daily. folic acid-B6-B12 (FOLBEE) 2.5-25-1 mg tab Take 1 tablet by mouth once daily. pregabalin (LYRICA) 100 mg capsule Take 2 capsules by mouth once daily. Dr. Rojas morphine SR (MS CONTIN, ORAMORPH SR) 15 mg 12 hr tablet Take 1 tablet by mouth twice daily. Dr. Polanco tiZANidine HCl 6 mg capsule Take 6 mg by mouth three times daily. zolpidem (AMBIEN) 5 mg tablet Take 1 tablet by mouth at bedtime as needed for Sedation. methotrexate, PF, 25 mg/mL Soln 0.75 ml weekly () abatacept (ORENCIA) 125 mg/mL Syrg Inject subcutaneously. Vitamin E 400 unit ORAL Tab Take by mouth. CALCIUM CARBONATE/VITAMIN D3 (CALCIUM 600 + D ORAL) Take by mouth. FAMILY HISTORY Problem Relation Age of Onset - Diabetes Father depression, hypertension,one lobe removed from lung valvue replacement; type 2 DM - Thyroid Mother hypothyroid, obese, hypertension, - Thyroid Sister over active thyroid, hypertension - Hypertension Paternal Grandmother valvue replacement, colostomy bag because colon ca - Diabetes Mother type II Social History Substance Use Topics - Smoking status: Former Smoker Packs/day: 0.50 Years: 22.00 Types: Cigarettes Quit date: 12/06/2016 - Smokeless tobacco: Never Used Comment: 3 cigarettes per day - Alcohol use No PHYSICAL EXAM BP 124/80 Pulse 91 Resp 20 Wt 93 kg (205 lb) BMI 36.31 kg/m? No tenderness about the hip 90 - 0 flexion/extension Positive distal pulses Negative Jaxon's, calf tenderness or palpable cords Lungs: Lungs clear to auscultation, No wheezing, rales or rhonchi Heart: regular rate and rhythm, without murmur Abdomen: soft, nondistended, moderate LLQ tenderness, no hepatosplenomegaly or masses ASSESSMENT/PLAN: 1. Left groin pain - ICD9: 789.09, ICD10: R10.32 (primary diagnosis) Etiology unclear Differential Diagnosis includes Gastritis, Constipation, Ovarian cyst, referred back pain or degenerative changes to left hip from overuse - Work up with Ultrasound transvaginal and hip xray - Treatment for constipation discussed - Follow to be determined by diagnostic test results sooner if worsening of symptoms - US FEMALE PELVIS TRANSVAG - XR HIP GENERAL 3V PELV/AP/LAT LT 2. Pelvic pain - ICD9: [id number], ICD10: R10.2 - Plan as above, see #1 - US FEMALE PELVIS TRANSVAG - XR HIP GENERAL 3V PELV/AP/LAT LT 3. Hx of ovarian cyst - ICD9: V13.29, ICD10: Z87.42 - US FEMALE PELVIS TRANSVAG Jeri Alejandre APRN.OPTICS MANUFACTURING TECHNICIAN Referring Provider: JERI ALEJANDRE ([facility]) [[id number]] Allergies As of Date: 12/12/2017 Noted Allergy Reaction ADHESIVE 03/05/2011 2 - Rash CELEXA (CITALOPRAM) 01/07/2009 8 - GI Upset CODEINE 08/19/2006 Comments: Motion kind of sickness DOXYCYCLINE 04/01/2009 8 - GI Upset Date Reviewed: 12/04/2017 Reviewed by: Georgia Mitchell Ct - Fully Assessed Reason for Visit: Recheck [92] Cmt: left leg pain Primary Visit Diagnosis:Left groin pain [R10.32] Other Visit Diagnoses:Pelvic pain [R10.2] Hx of ovarian cyst [Z87.42] Order(s):US FEMALE PELVIS TRANSVAG [[id number]] Order #: [id number] FUTURE XR HIP GENERAL 3V PELV/AP/LAT LT [[id number]] Order #: [id number] FUTURE Prescriptions as of 12/12/2017 Sig: OXYCODONE-ACETAMINOPHEN 5 MG-* Take 1 tablet by mouth twice * PREDNISONE 5 MG TABLET Take 1 tablet by mouth once d* CETIRIZINE 10 MG TABLET Take 1 tablet by mouth once d* HYDROXYZINE HCL 25 MG TABLET Take 1 tablet by mouth every * PAROXETINE 10 MG TABLET Take 1 tablet by mouth once d* ESOMEPRAZOLE MAGNESIUM 40 MG * Take 1 capsule by mouth twice* GABAPENTIN 600 MG TABLET Take 2 tablets by mouth three* FLURANDRENOLIDE 0.05 % LOTION Apply 1 application to affect* FOLIC ACID-VIT B6-VIT B12 2.5* Take 1 tablet by mouth once d* PREGABALIN 100 MG CAPSULE Take 2 capsules by mouth once* MORPHINE ER 15 MG TABLET,EXTE* Take 1 tablet by mouth twice * TIZANIDINE 6 MG CAPSULE Take 6 mg by mouth three time* ZOLPIDEM 5 MG TABLET Take 1 tablet by mouth at bed* METHOTREXATE SODIUM (PF) 25 M* 0.75 ml weekly () * ABATACEPT 125 MG/ML SUBCUTANE* Inject subcutaneously. * VITAMIN E 400 UNIT TABLET Take by mouth. * CALCIUM 600 + D ORAL Take by mouth. Problem List As Of Date 12/12/2017 Noted Resolved Rheumatoid arthritis (HCC) [M06.9] GENERAL OSTEOARTHROSIS [M15.9] ADJUSTMENT DISORDER WITH DEPRESSED MOOD [F43.21] LUPUS ERYTHEMATOSUS [L93.0] ESOPHAGEAL REFLUX [K21.9] INVALID FOR* INSOMNIA NOS [G47.00] INVALID FOR* SCIATICA [M54.30] INVALID FOR* Varicose Veins of Leg with Swelling [I83.899] INVALID FOR* More... 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] INVALID FOR* Contact dermatitis and other eczema, due to uns*INVALID FOR* Postinflammatory hyperpigmentation [L81.0] INVALID FOR* Scars [L90.5] INVALID FOR* Superficial injury NEC [T07.XXXA] INVALID FOR* Unspecified pruritic disorder [L29.9] INVALID FOR*07/09/2013 Other specified disease of hair and hair follic*INVALID FOR* Prurigo [L28.2] INVALID FOR* Lichenification and lichen simplex chronicus [L*INVALID FOR* Dyschromia, unspecified [L81.9] INVALID FOR* Scar condition and fibrosis of skin [L90.5] INVALID FOR* Neurodermatitis [L28.0] INVALID FOR* Tobacco use disorder [F17.200] INVALID FOR* Chronic lower back pain [M54.5, G89.29] INVALID FOR* Nail avulsion, toe [S91.209A] INVALID FOR*09/16/2012 Climacteric [N95.1] INVALID FOR* Kidney stone [N20.0] INVALID FOR* Pelvic pressure in female [R10.2] INVALID FOR* Obesity (BMI 30.0-34.9) [E66.9] INVALID FOR* Encounter Status:Closed by JERI ALEJANDRE CNP on 12/12/17 PROGRESS Observed: 12/05/2017 Status: COMPLETED Source: [place] 2:59 PM [facility] REPOSITORY HNO ID: [id number] Author: Tasha Beard Service: (none) Author Type: Equity Director Type: Progress Notes Filed: 12/05/2017 2:59 PM Note Text: Radiology Service Progress Note PATIENT NAME: Soraya Faust DATE OF SERVICE: December 05, 2017 TIME: 2:59 PM PATIENT IDENTITY VERIFICATION COMPLETED USING TWO (2) METHODS: Patient confirmed name verbally and Date of . PATIENT GENDER DATA: Female. status: : No status: N/A PATIENT RELEVANT IMPLANT DATA REVIEWED: Not Applicable RADIOLOGY DEPARTMENT: Ultrasound LT LEG DVT PERIPHERAL IV DATA: Not applicable SIGNED BY: TASHA BEARD RDMS Kieran December 05, 2017 2:59 PM US DVT LOWER LT Observed: 12/05/2017 Status: F Source: [place] 2:58 PM [facility] REPOSITORY * * *Final Report* * * DATE OF EXAM: Dec 05 2017 2:58PM [facility]U 1006 - US DVT LOWER LT / PROCEDURE REASON: Other specified abnormal findings of blood chemistry * * * * Physician Interpretation * * * * EXAMINATION: US DVT LOWER LT HISTORY: Other specified abnormal findings of blood chemistry . TECHNIQUE: Grayscale images with/without compression were obtained. Additionally, color Doppler images were obtained. RESULT: The distal left external iliac, left common femoral, left superficial femoral, and left popliteal veins are patent, bilaterally, with normal color flow and compressibility. Visualized left calf veins are patent. Incidentally noted is a patent right common femoral vein. IMPRESSION: No left lower extremity DVT. 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PSCB Transcribe Date/Time: Dec 05 2017 3:24P Dictated by : GIANA LYON MD This examination was interpreted and the report reviewed and electronically signed by: GIANA LYON MD on Dec 05 2017 3:26PM EST [id number] PROGRESS Observed: 12/04/2017 Status: COMPLETED Source: [place] 3:50 PM [facility] REPOSITORY HNO ID: [id number] Author: Georgia Rushing Service: (none) Author Type: (none) Type: Progress Notes Filed: 12/04/2017 3:50 PM Note Text: Radiology Service Progress Note PATIENT NAME: Soraya Faust DATE OF SERVICE: December 04, 2017 TIME: 3:50 PM PATIENT IDENTITY VERIFICATION COMPLETED USING TWO (2) METHODS: Patient confirmed name verbally and Date of . PATIENT GENDER DATA: Female. status: : No status: NO. PATIENT RELEVANT IMPLANT DATA REVIEWED: Not Applicable CONTRAST INDUCED NEPHROPATHY RISK FACTORS: Not applicable CREATININE: Creatinine Date Value Ref Range Status 09/02/2017 0.68 0.58 - 0.96 mg/dL Final eGFR-All Other Races Date Value Ref Range Status 09/02/2017 >60 . Final Comment: eGFR (Estimated GFR) Units of measure: mL/min/1.73 meters squared eGFR is derived from the reexpressed MDRD Study equation using the following parameters: serum creatinine, age, gender and race. The creatinine assay has been calibrated to be traceable to IDMS. An eGFR <60 mL/min/1.73m2 for >3 months is consistent with chronic kidney disease. Refer to KDOQI guidelines for clinical interpretation. In patients with unstable renal function, e.g. those with acute kidney injury, the eGFR may not accurately reflect actual GFR. eGFR- Date Value Ref Range Status 09/02/2017 >60 Final P.O.C.T. RESULTS: POC done: Yes, See Lab Tab December 04, 2017 RADIOLOGIST NOTIFIED?: No ALLERGIES: Reviewed and unchanged CONTRAST ALLERGY: NO. PERIPHERAL IV ACCESS: Ambulatory: IV type: A peripheral IV was started in the Left antecubital site with a Angio cath: 18 gauge., Site assessment: Clean,Dry and Intact, Site disposition Discontinued RADIOLOGY DEPARTMENT: CT; Exam(s) Completed: PE Study SIGNED BY: Georgia Wilcox Mitchellschuyler Rushing December 04, 2017 3:[address] CHEST W IVCON PE Observed: 12/04/2017 Status: F Source: [place] 3:49 PM [facility] REPOSITORY * * *Final Report* * * DATE OF EXAM: Dec 04 2017 3:49PM [facility] 0540 - CT CHEST W IVCON PE / PROCEDURE REASON: Other specified abnormal findings of blood chemistry * * * * Physician Interpretation * * * * EXAMINATION: CHEST CT WITH CONTRAST (PULMONARY EMBOLISM PROTOCOL) CLINICAL HISTORY: Other specified abnormal findings of blood chemistry Technique: Spiral CT acquisition of the chest from the thoracic inlet to the upper abdomen following IV contrast. MQ: CTCPER_4 Contrast: 100 mL Omnipaque [address] Dose-Length Product: 450 mGy*cm CT Dose Reduction Employed: Automated exposure control (AEC) Comparison: None. RESULT: Limitations: None. Evaluation for thromboembolic disease: - Right heart chambers: No thromboembolic disease. - Main pulmonary arteries: No thromboembolic disease. - Lobar pulmonary arteries: No thromboembolic disease. - Segmental pulmonary arteries: No thromboembolic disease. - Subsegmental pulmonary arteries: No thromboembolic disease. Lines, tubes, and devices: None. Lung parenchyma and pleura: The central airways are patent. No consolidation, although subsegmental atelectases noted in the right middle lobe and dependent atelectases seen in the bilateral lower lobes.. No suspicious pulmonary nodule. No pleural effusion or pneumothorax. There are large bilateral pericardial fat pads. Thoracic inlet, heart, and mediastinum: No lymphadenopathy in the axillary, mediastinal, or hilar regions. The thoracic aorta and main pulmonary artery are normal in caliber. The cardiac chambers are normal in size. No coronary artery atherosclerotic calcifications are noted, although the study is not optimized for coronary assessment. No pericardial effusion or thickening. Bones and soft tissues: No destructive bone lesion. There are degenerative changes in the spine, with multilevel compression deformities/wedge shaped deformities in the vertebral bodies. A spinal cord stimulator in place. Chest wall soft tissue is unremarkable. Upper abdomen: Limited study through the upper abdomen demonstrates possible hepatic steatosis however not fully characterized due to intravenous contrast. IMPRESSION: No CT evidence of pulmonary embolism. 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PSCB Transcribe Date/Time: Dec 04 2017 3:53P Dictated by : SANTO BERRIOS MD This examination was interpreted and the report reviewed and electronically signed by: SANTO BERRIOS MD on Dec 04 2017 3:59PM EST [id number] DWAYNE CREATININE Collected: 12/04/2017 Status: F Source: [place] 3:12 PM [facility] REPOSITORY TYPE CODE TESTS RESULT OUT OF REFERENCE UNITS RANGE LAB WCRET 0.7-1.4 mg/dL Low Dwayne Creatinine 0.6 HEMOGLOBIN A1C Collected: 12/04/2017 Status: F Source: [place] 3:12 PM [facility] REPOSITORY TYPE CODE TESTS RESULT OUT OF REFERENCE UNITS RANGE LAB HGBA1C 4.3-5.6 % High Hemoglobin A1c 6.1 LAB HBA0 mg/dL Est. Average Glucose 128 Result Comment: eAG: (Estimated average glucose) is a calculated value from HgbA1c and is international representative of the average blood glucose level in the last 2-3 month period. Performed By: #### HBA1C, LIPB, LDLDCT #### [facility] [address] [id number] LIPID PANEL, BASIC Collected: 12/04/2017 Status: F Source: [place] 3:12 PM [facility] REPOSITORY TYPE CODE TESTS RESULT OUT OF REFERENCE UNITS RANGE LAB CHOL <200 mg/dL Cholesterol High 282 Result Comment: <200 mg/dL, Desirable 200-239 mg/dL, Borderline high >239 mg/dL, High LAB TRIGLY <150 mg/dL Triglyceride High 465 Result Comment: <150 mg/dL, Normal 150-199 mg/dL, Borderline high 200-499 mg/dL, High >499 mg/dL, Very high LAB HDL >39 mg/dL HDL-Cholesterol 42 Result Comment: 40-59 mg/dL, Acceptable >59 mg/dL, High: Negative risk factor for coronary heart disease <40 mg/dL, Low: Positive risk factor for coronary heart disease LAB LDL <100 mg/dL LDL-Cholesterol Unable to calculate due to increased Triglycerides. See LDL-Chol, Direct. LAB NONHDL <130 mg/dL Non HDL Cholesterol 240 High Result Comment: <130 mg/dL, Optimal 130-159 mg/dL, Near optimal/above optimal 160-189 mg/dL, Borderline high 190-219 mg/dL, High >219 mg/dL, Very high Secondary prevention optimal non HDL Cholesterol levels are recommended to be < 100 mg/dL LAB FT hrs Fasting Time 1 LAB VLDL <30 mg/dL VLDL Unable Cholesterol to calculate due to increased Triglycerides. See LDL-Chol, Direct. LAB TCHDL <5.10 TC:HDL Ratio 6.71 High LAB LDLHDL <2.54 LDL:HDL Ratio Unable to calculate due to elevated Triglycerides. Result Comment: Reference: 1. National Cholesterol Education Program ATP III Guideline At-A-Glance Quick Desk Reference: National Heart, Lung, and Blood [place]. National Institutes of Health. 2001: NIH Publication No. 01-3305. 2. An International Atherosclerosis Society position paper: global recommendations for the management of dyslipidemia: executive summary, Atherosclerosis. 2014: 232(2):410-413. Performed By: #### HBA1C, LIPB, LDLDCT #### [facility] [address], [place] [address] LDL-CHOL, DIRECT Collected: 12/04/2017 Status: F Source: [place] 3:12 PM [facility] REPOSITORY TYPE CODE TESTS RESULT OUT OF REFERENCE UNITS RANGE LAB LDLDIR <100 mg/dL High LDL-Chol, 169 Direct Result Comment: <100 mg/dL, Optimal 100-129 mg/dL, Near optimal/above optimal 130-159 mg/dL, Borderline high 160-189 mg/dL, High >189 mg/dL, Very high Secondary prevention optimal LDL Cholesterol levels are recommended to be < 70 mg/dL LAB VLDL1 <30 mg/dL VLDL Cholesterol High 71 Performed By: #### HBA1C, LIPB, LDLDCT #### [facility] [address], [place] [address] D DIMER Collected: 11/28/2017 Status: F Source: [place] 11:56 AM [facility] REPOSITORY TYPE CODE TESTS RESULT OUT OF REFERENCE UNITS RANGE LAB DDMER <500 ng/mL FEU High D dimer 1110 Result Comment: The D-dimer assay can be used to exclude pulmonary embolism (PE) and deep vein thrombosis (DVT) in conjunction with a low pre-test probability. For patients with a suspected DVT, a D-dimer level below 500 ng/mL FEU has a negative predictive value of 99.2%, a sensitivity of 98.9%, and a specificity of 36.1%. For patients with a suspected PE, a D -dimer level below 500 ng/mL FEU has a negative predictive value of 99.1%, a sensitivity of 97.8%, and a specificity of 41.7%. Performed By: #### DDMER #### [facility] [address] [facility] [place] [address] PROGRESS Observed: 11/28/2017 Status: COMPLETED Source: [place] 11:11 AM [facility] REPOSITORY HNO ID: [id number] Author: Jeri Alejandre Service: (none) Author Type: Nurse Practitioner Type: Progress Notes Filed: 11/28/2017 12:12 PM Note Text: CC: Patient presents with: Recheck HPI Soraya Faust is a 57 year old female who presents today for routine follow up and complaints of left leg pain. Left leg pain: Ongoing for the past few weeks No injury or recent fall. Pain is described as an intense pressure pain that just hurts pain remains unchanged. Exacerbated with any sort of pressure and ambulation. Patient reports swelling to BLE L>R. Associated symptoms include intermittent sharp pleuritic pain only experienced in the evening while in a reclined position. Denies any SOB, warmth or redness. Quit smoking 1 year ago for her hip surgery. GERD. Since our last visit on 02/26/17 with Cheryl Adams CNP she has been doing well. Current symptoms occasional reflux and cough/clearing throat 1-2x per month on therapy of esomeprazole (Nexium) BID. Depression: Patient reports mood is stable. Denies any manic episodes, anxiety, panic attacks, depressed mood or SI/HI. Patient tolerating Paxil without side effects. Sleep is fairly stable, takes Ambien on occasion- prescribed by . Rheumatoid arthritis/Lupus: On Orencia, metotrexate and prednisone PRN. Managed by wet machine tender, Pain management: Dr. Ward, recent discussion about possible pain pump. Patient on percocet, morphine and gabapentin. REVIEW OF SYSTEMS General: no fevers, no chills, no recurrent infections, no change in appetite and no significant changes in weight HEENT: no frequent or significant headaches, no changes in hearing, no visual changes, no nose bleeds, no sinus or nasal problems Neck: no lumps, no pain and no swelling Respiratory: no cough, no wheezing, no shortness of breath, no hemoptysis Cardiovascular: no chest pressure, no palpitations, no swelling and See HPI GI: No nausea, vomiting, or diarrhea : No history of dysuria, frequency or incontinence Hematologic/Lymph: Negative for prolonged bleeding, bruising easily or swollen nodes Endocrine: no fatigue, no weight gain, no weight loss, no hair loss, no dry skin, no cold intolerance, no heat intolerance, no neck pain/pressure, no polyuria, no polyphagia and no polydipsia Musculoskeletal: See HPI Neurologic: No headache, weakness, numbness, tingling, neck stiffness, tremor, vertigo, dizziness, memory loss, syncope. PAST MEDICAL HISTORY Diagnosis Date - Adjustment disorder with depressed mood - Climacteric - Esophageal reflux 08/19/2006 - Generalized osteoarthrosis, unspecified site - Insomnia, unspecified 08/19/2006 - Lupus erythematosus - Rheumatoid arthritis(714.0) Dr. Rojas treating - Sciatica 08/19/2006 PAST SURGICAL HISTORY Procedure Laterality Date - LAMINECTOMY,CERVICAL Laminectomy, cervical, c5=6 - LAMINECTOMY,LUMBAR Laminectomy, lumbar l5 and s1 - LIGATE FALLOPIAN TUBE 1985 Tubal ligation - tubal - LUMBAR SPINE FUSION,ANTER APPRCH 05/14/11 2 levels - PAST SURGICAL HISTORY OF 01/25/2009 Hysteroscopy DANMT - PAST SURGICAL HISTORY OF 01/25/2009 Novasure Ablation - PAST SURGICAL HISTORY OF 04/18/2010 Discogram of spine. - PAST SURGICAL HISTORY OF 09/2009 Spinal stimulator--NO MRIs !!!! - REDUCTION OF LARGE BREAST 06/2010 ALLERGIES Adhesive; Celexa [Citalopram]; Codeine; Doxycycline MEDICATIONS cetirizine (ZYRTEC) 10 mg tablet Take 1 tablet by mouth once daily. May take one additional tablet daily as needed hydrOXYzine HCl (ATARAX) 25 mg tablet Take 1 tablet by mouth every 8 hours as needed. PARoxetine (PAXIL) 10 mg tablet Take 1 tablet by mouth once daily. esomeprazole (NEXIUM) 40 mg capsule Take 1 capsule by mouth twice daily before meals. gabapentin (NEURONTIN) 600 mg tablet Take 2 tablets by mouth three times daily. flurandrenolide (CORDRAN) 0.05 % lotion Apply 1 application to affected area twice daily. predniSONE (DELTASONE) 5 mg tablet Take 1 tablet by mouth once daily as needed (Rheumatoid Arthritis flare). folic acid-B6-B12 (FOLBEE) 2.5-25-1 mg tab Take 1 tablet by mouth once daily. pregabalin (LYRICA) 100 mg capsule Take 2 capsules by mouth once daily. Dr. Rojas morphine SR (MS CONTIN, ORAMORPH SR) 15 mg 12 hr tablet Take 1 tablet by mouth twice daily. Dr. Polanco zolpidem (AMBIEN) 5 mg tablet Take 1 tablet by mouth at bedtime as needed for Sedation. methotrexate, PF, 25 mg/mL Soln 0.75 ml weekly () abatacept (ORENCIA) 125 mg/mL Syrg Inject subcutaneously. Vitamin E 400 unit ORAL Tab Take by mouth. CALCIUM CARBONATE/VITAMIN D3 (CALCIUM 600 + D ORAL) Take by mouth. tiZANidine HCl 6 mg capsule Take 6 mg by mouth three times daily. FAMILY HISTORY Problem Relation Age of Onset - Diabetes Father depression, hypertension,one lobe removed from lung valvue replacement; type 2 DM - Thyroid Mother hypothyroid, obese, hypertension, - Thyroid Sister over active thyroid, hypertension - Hypertension Paternal Grandmother valvue replacement, colostomy bag because colon ca - Diabetes Mother type II Social History Substance Use Topics - Smoking status: Current Every Day Smoker Packs/day: 0.50 Years: 22.00 Types: Cigarettes Last attempt to quit: 02/27/2011 - Smokeless tobacco: Never Used Comment: 3 cigarettes per day - Alcohol use No PHYSICAL EXAM BP 106/64 (BP Site: Left Arm, BP Position: Sitting, BP Cuff Size: Large Adult) Pulse 80 Resp 14 Wt 92.5 kg (204 lb) BMI 36.14 kg/m? General Appearance: well appearing, in no acute distress, alert Pysch: mood and affect broad and appropriate Skin: Skin color, texture, turgor normal for age; Head: normocephalic, atraumatic Eyes: conjunctiva pink and moist, no icterus, sclera white, non-injected Lungs: Lungs clear to auscultation. No wheezing, rhonchi, rales Heart: RRR without murmur, gallop, or rubs. No ectopy Extremities: No deformities, edema, skin discoloration, clubbing or cyanosis. Good capillary refill. , Pulses: 2+, Edema: questionable trace non-pitting edema to LLE without redness, warmth +varicosities Negative Homans sign LLE. HEPATITIS C SCREENING due on 2006 DTAP,TDAP,TD(1 - Tdap) due on 06/26/2007 COLORECTAL CANCER SCREENING,SEE MODIFIER due on 2012 PAP EVERY 5 YEARS due on 05/13/2017 HPV EVERY 5 YEARS due on 05/13/2017 INFLUENZA(1) due on 12/28/2017 MAMMOGRAM due on 09/02/2018 DIABETES SCREEN due on 09/02/2020 LIPID SCREEN due on 09/02/2022 ONE PNEUMOVAX PRIOR TO AGE 65 Completed ASSESSMENT/PLAN: 1. Pain of left calf - ICD9: 729.5, ICD10: M79.662 (primary diagnosis) - No acute or concerning exam findings, Homans sign negative. Imaging studies not indicated at this time - Recommend ice, elevation and compression stocking or MOSHE wrap as tolerated - D-DIMER - Follow up to be determined by laboratory studies, otherwise follow up in 2 weeks if no symptom improvement, sooner for new or worsening symptoms 2. Edema of left lower extremity - ICD9: 782.3, ICD10: R60.0 - Plan as above 3. Rheumatoid arthritis, involving unspecified site, unspecified rheumatoid factor presence (HCC) - ICD9: 714.0, ICD10: M06.9 - Stable, managed by - Continue current medications - Follow up in 6 months 4. Systemic lupus erythematosus, unspecified SLE type, unspecified organ involvement status (HCC) - ICD9: 710.0, ICD10: M32.9 - Stable, managed by rheumatology - Continue current medications - PREDNISONE 5 MG TABLET - Follow up in 6 months 5. Gastroesophageal reflux disease, esophagitis presence not specified - ICD9: 530.81, ICD10: K21.9 - Discussed lifestyle modifications including losing weight, limiting caffeine, no meals three hours before sleep and head of bed elevation - Continue treatment with Nexium 40 mg BID - Follow up in 6months 6. Adjustment disorder with depressed mood - ICD9: 309.0, ICD10: F43.21 - Stable - Continue Paxil - Follow up in 6 months 7. Tobacco use disorder - ICD9: 305.1, ICD10: F17.200 - Resolved, patient is tobacco free as of 12/06/16 Patient aware of pending lab orders for HgbA1C and Lipids. Not fasting today, will return next week to complete. Jeri Alejandre APRN.[employer] MANUFACTURING TECHNICIAN Prescription instructions reviewed with patient as applicable. Potential red flag symptoms discussed with the patient. Reviewed appropriate action plan to take if red flag symptoms occur. Patient agreeable to treatment plan. CNOV Observed: 11/28/2017 Status: COMPLETED Source: [place] 11:00 AM [facility] REPOSITORY Office Visit (INTMWS) SORAYA FAUST ([id number]) 1960 F Date Time Provider Department 11/28/17 11:00 AM JERI ALEJANDRE (JET) INTM[facility] During your visit today, we recorded the following information about you: Pulse Respiration Blood pressure Weight 80/minute 14/minute 106/64 92.5 kg Jeri Alejandre APRN.CNP 11/28/2017 12:12 PM Signed CC: Patient presents with: Recheck HPI Soraya Faust is a 57 year old female who presents today for routine follow up and complaints of left leg pain. Left leg pain: Ongoing for the past few weeks No injury or recent fall. Pain is described as an intense pressure pain that just hurts pain remains unchanged. Exacerbated with any sort of pressure and ambulation. Patient reports swelling to BLE L>R. Associated symptoms include intermittent sharp pleuritic pain only experienced in the evening while in a reclined position. Denies any SOB, warmth or redness. Quit smoking 1 year ago for her hip surgery. GERD. Since our last visit on 02/26/17 with Cheryl Adams CNP she has been doing well. Current symptoms occasional reflux and cough/clearing throat 1-2x per month on therapy of esomeprazole (Nexium) BID. Depression: Patient reports mood is stable. Denies any manic episodes, anxiety, panic attacks, depressed mood or SI/HI. Patient tolerating Paxil without side effects. Sleep is fairly stable, takes Ambien on occasion- prescribed by . Rheumatoid arthritis/Lupus: On Orencia, metotrexate and prednisone PRN. Managed by wet machine tender, Pain management: Dr. Ward, recent discussion about possible pain pump. Patient on percocet, morphine and gabapentin. REVIEW OF SYSTEMS General: no fevers, no chills, no recurrent infections, no change in appetite and no significant changes in weight HEENT: no frequent or significant headaches, no changes in hearing, no visual changes, no nose bleeds, no sinus or nasal problems Neck: no lumps, no pain and no swelling Respiratory: no cough, no wheezing, no shortness of breath, no hemoptysis Cardiovascular: no chest pressure, no palpitations, no swelling and See HPI GI: No nausea, vomiting, or diarrhea : No history of dysuria, frequency or incontinence Hematologic/Lymph: Negative for prolonged bleeding, bruising easily or swollen nodes Endocrine: no fatigue, no weight gain, no weight loss, no hair loss, no dry skin, no cold intolerance, no heat intolerance, no neck pain/pressure, no polyuria, no polyphagia and no polydipsia Musculoskeletal: See HPI Neurologic: No headache, weakness, numbness, tingling, neck stiffness, tremor, vertigo, dizziness, memory loss, syncope. PAST MEDICAL HISTORY Diagnosis Date - Adjustment disorder with depressed mood - Climacteric - Esophageal reflux 08/19/2006 - Generalized osteoarthrosis, unspecified site - Insomnia, unspecified 08/19/2006 - Lupus erythematosus - Rheumatoid arthritis(714.0) Dr. Rojas treating - Sciatica 08/19/2006 PAST SURGICAL HISTORY Procedure Laterality Date - LAMINECTOMY,CERVICAL Laminectomy, cervical, c5=6 - LAMINECTOMY,LUMBAR Laminectomy, lumbar l5 and s1 - LIGATE FALLOPIAN TUBE 1985 Tubal ligation - tubal - LUMBAR SPINE FUSION,ANTER APPH 05/14/11 2 levels - PAST SURGICAL HISTORY OF 01/25/2009 Hysteroscopy DANMT - PAST SURGICAL HISTORY OF 01/25/2009 Novasure Ablation - PAST SURGICAL HISTORY OF 04/18/2010 Discogram of spine. - PAST SURGICAL HISTORY OF 09/2009 Spinal stimulator--NO MRIs !!!! - REDUCTION OF LARGE BREAST 06/2010 ALLERGIES Adhesive; Celexa [Citalopram]; Codeine; Doxycycline MEDICATIONS cetirizine (ZYRTEC) 10 mg tablet Take 1 tablet by mouth once daily. May take one additional tablet daily as needed hydrOXYzine HCl (ATARAX) 25 mg tablet Take 1 tablet by mouth every 8 hours as needed. PARoxetine (PAXIL) 10 mg tablet Take 1 tablet by mouth once daily. esomeprazole (NEXIUM) 40 mg capsule Take 1 capsule by mouth twice daily before meals. gabapentin (NEURONTIN) 600 mg tablet Take 2 tablets by mouth three times daily. flurandrenolide (CORDRAN) 0.05 % lotion Apply 1 application to affected area twice daily. predniSONE (DELTASONE) 5 mg tablet Take 1 tablet by mouth once daily as needed (Rheumatoid Arthritis flare). folic acid-B6-B12 (FOLBEE) 2.5-25-1 mg tab Take 1 tablet by mouth once daily. pregabalin (LYRICA) 100 mg capsule Take 2 capsules by mouth once daily. Dr. Rojas morphine SR (MS CONTIN, ORAMORPH SR) 15 mg 12 hr tablet Take 1 tablet by mouth twice daily. Dr. Polanco zolpidem (AMBIEN) 5 mg tablet Take 1 tablet by mouth at bedtime as needed for Sedation. methotrexate, PF, 25 mg/mL Soln 0.75 ml weekly () abatacept (ORENCIA) 125 mg/mL Syrg Inject subcutaneously. Vitamin E 400 unit ORAL Tab Take by mouth. CALCIUM CARBONATE/VITAMIN D3 (CALCIUM 600 + D ORAL) Take by mouth. tiZANidine HCl 6 mg capsule Take 6 mg by mouth three times daily. FAMILY HISTORY Problem Relation Age of Onset - Diabetes Father depression, hypertension,one lobe removed from lung valvue replacement; type 2 DM - Thyroid Mother hypothyroid, obese, hypertension, - Thyroid Sister over active thyroid, hypertension - Hypertension Paternal Grandmother valvue replacement, colostomy bag because colon ca - Diabetes Mother type II Social History Substance Use Topics - Smoking status: Current Every Day Smoker Packs/day: 0.50 Years: 22.00 Types: Cigarettes Last attempt to quit: 02/27/2011 - Smokeless tobacco: Never Used Comment: 3 cigarettes per day - Alcohol use No PHYSICAL EXAM BP 106/64 (BP Site: Left Arm, BP Position: Sitting, BP Cuff Size: Large Adult) Pulse 80 Resp 14 Wt 92.5 kg (204 lb) BMI 36.14 kg/m? General Appearance: well appearing, in no acute distress, alert Pysch: mood and affect broad and appropriate Skin: Skin color, texture, turgor normal for age; Head: normocephalic, atraumatic Eyes: conjunctiva pink and moist, no icterus, sclera white, non-injected Lungs: Lungs clear to auscultation. No wheezing, rhonchi, rales Heart: RRR without murmur, gallop, or rubs. No ectopy Extremities: No deformities, edema, skin discoloration, clubbing or cyanosis. Good capillary refill. , Pulses: 2+, Edema: questionable trace non-pitting edema to LLE without redness, warmth +varicosities Negative Homans sign LLE. HEPATITIS C SCREENING due on 2006 DTAP,TDAP,TD(1 - Tdap) due on 06/26/2007 COLORECTAL CANCER SCREENING,SEE MODIFIER due on 2012 PAP EVERY 5 YEARS due on 05/13/2017 HPV EVERY 5 YEARS due on 05/13/2017 INFLUENZA(1) due on 12/28/2017 MAMMOGRAM due on 09/02/2018 DIABETES SCREEN due on 09/02/2020 LIPID SCREEN due on 09/02/2022 ONE PNEUMOVAX PRIOR TO AGE 65 Completed ASSESSMENT/PLAN: 1. Pain of left calf - ICD9: 729.5, ICD10: M79.662 (primary diagnosis) - No acute or concerning exam findings, Homans sign negative. Imaging studies not indicated at this time - Recommend ice, elevation and compression stocking or MOSHE wrap as tolerated - D-DIMER - Follow up to be determined by laboratory studies, otherwise follow up in 2 weeks if no symptom improvement, sooner for new or worsening symptoms 2. Edema of left lower extremity - ICD9: 782.3, ICD10: R60.0 - Plan as above 3. Rheumatoid arthritis, involving unspecified site, unspecified rheumatoid factor presence (HCC) - ICD9: 714.0, ICD10: M06.9 - Stable, managed by - Continue current medications - Follow up in 6 months 4. Systemic lupus erythematosus, unspecified SLE type, unspecified organ involvement status (HCC) - ICD9: 710.0, ICD10: M32.9 - Stable, managed by rheumatology - Continue current medications - PREDNISONE 5 MG TABLET - Follow up in 6 months 5. Gastroesophageal reflux disease, esophagitis presence not specified - ICD9: 530.81, ICD10: K21.9 - Discussed lifestyle modifications including losing weight, limiting caffeine, no meals three hours before sleep and head of bed elevation - Continue treatment with Nexium 40 mg BID - Follow up in 6months 6. Adjustment disorder with depressed mood - ICD9: 309.0, ICD10: F43.21 - Stable - Continue Paxil - Follow up in 6 months 7. Tobacco use disorder - ICD9: 305.1, ICD10: F17.200 - Resolved, patient is tobacco free as of 12/06/16 Patient aware of pending lab orders for HgbA1C and Lipids. Not fasting today, will return next week to complete. Jeri Alejandre APRN.[employer] MANUFACTURING TECHNICIAN Prescription instructions reviewed with patient as applicable. Potential red flag symptoms discussed with the patient. Reviewed appropriate action plan to take if red flag symptoms occur. Patient agreeable to treatment plan. Referring Provider: CHERYL ADAMS (SQL REPORT WRITER) [[id number]] Allergies As of Date: 11/28/2017 Noted Allergy Reaction ADHESIVE 03/05/2011 2 - Rash CELEXA (CITALOPRAM) 01/07/2009 8 - GI Upset CODEINE 08/19/2006 Comments: Motion kind of sickness DOXYCYCLINE 04/01/2009 8 - GI Upset Date Reviewed: 11/28/2017 Reviewed by: Marlen Olson Ma - Fully Assessed Reason for Visit: Recheck [92] Primary Visit Diagnosis:Pain of left calf [M79.662] Other Visit Diagnoses:Edema of left lower extremity [R60.0] Rheumatoid arthritis, involving unspecified site, unspecified rheumatoid factor presence (HCC) [M06.9] Systemic lupus erythematosus, unspecified SLE type, unspecified organ involvement status (HCC) [M32.9] Gastroesophageal reflux disease, esophagitis presence not specified [K21.9] Adjustment disorder with depressed mood [F43.21] Tobacco use disorder [F17.200] Order(s):oxyCODONE-acetaminophen (PERCOCET) 5-325 mg tabletTake 1 tablet by mouth twice daily for 30 days. Earliest Fill Date: 11/28/17Disp: Rfl: D-DIMER [SQDDMER] Order #: [id number] FUTURE predniSONE (DELTASONE) 5 mg tabletTake 1 tablet by mouth once daily as needed (Rheumatoid Arthritis flare).Disp: 30 tabletRfl: 0 Prescriptions as of 11/28/2017 Sig: PREDNISONE 5 MG TABLET Take 1 tablet by mouth once d* CETIRIZINE 10 MG TABLET Take 1 tablet by mouth once d* HYDROXYZINE HCL 25 MG TABLET Take 1 tablet by mouth every * PAROXETINE 10 MG TABLET Take 1 tablet by mouth once d* ESOMEPRAZOLE MAGNESIUM 40 MG * Take 1 capsule by mouth twice* GABAPENTIN 600 MG TABLET Take 2 tablets by mouth three* FLURANDRENOLIDE 0.05 % LOTION Apply 1 application to affect* FOLIC ACID-VIT B6-VIT B12 2.5* Take 1 tablet by mouth once d* PREGABALIN 100 MG CAPSULE Take 2 capsules by mouth once* MORPHINE ER 15 MG TABLET,EXTE* Take 1 tablet by mouth twice * ZOLPIDEM 5 MG TABLET Take 1 tablet by mouth at bed* METHOTREXATE SODIUM (PF) 25 M* 0.75 ml weekly () * ABATACEPT 125 MG/ML SUBCUTANE* Inject subcutaneously. * VITAMIN E 400 UNIT TABLET Take by mouth. * CALCIUM 600 + D ORAL Take by mouth. OXYCODONE-ACETAMINOPHEN 5 MG-* Take 1 tablet by mouth twice * TIZANIDINE 6 MG CAPSULE Take 6 mg by mouth three time* Problem List As Of Date 11/28/2017 Noted Resolved Rheumatoid arthritis (HCC) [M06.9] GENERAL OSTEOARTHROSIS [M15.9] ADJUSTMENT DISORDER WITH DEPRESSED MOOD [F43.21] LUPUS ERYTHEMATOSUS [L93.0] ESOPHAGEAL REFLUX [K21.9] INVALID FOR* INSOMNIA NOS [G47.00] INVALID FOR* SCIATICA [M54.30] INVALID FOR* Varicose Veins of Leg with Swelling [I83.899] INVALID FOR* More... 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] INVALID FOR* Contact dermatitis and other eczema, due to uns*INVALID FOR* Postinflammatory hyperpigmentation [L81.0] INVALID FOR* Scars [L90.5] INVALID FOR* Superficial injury NEC [T07.XXXA] INVALID FOR* Unspecified pruritic disorder [L29.9] INVALID FOR*07/09/2013 Other specified disease of hair and hair follic*INVALID FOR* Prurigo [L28.2] INVALID FOR* Lichenification and lichen simplex chronicus [L*INVALID FOR* Dyschromia, unspecified [L81.9] INVALID FOR* Scar condition and fibrosis of skin [L90.5] INVALID FOR* Neurodermatitis [L28.0] INVALID FOR* Tobacco use disorder [F17.200] INVALID FOR* Chronic lower back pain [M54.5, G89.29] INVALID FOR* Nail avulsion, toe [S91.209A] INVALID FOR*09/16/2012 Climacteric [N95.1] INVALID FOR* Kidney stone [N20.0] INVALID FOR* Pelvic pressure in female [R10.2] INVALID FOR* Obesity (BMI 30.0-34.9) [E66.9] INVALID FOR* Prescriptions ordered this encounter Disp Refills Start End OXYCODONE-ACETAMINOPHEN 5 MG-325 MG * 11/28/2017 12/28/2017 Class: Med Update Route: ORAL Sig: Take 1 tablet by mouth twice daily for 30 days. Earliest Fill Date: 11/28/17 PREDNISONE 5 MG TABLET 30 t* 0 11/28/2017 Route: ORAL Sig: Take 1 tablet by mouth once daily as needed (Rheumatoid Arthritis flare). Medications Discontinued During This Encounter Ferrous Sulfate (IRON) 325 mg (65 mg* 11/28/2017 Class: Med Update Route: ORAL Sig: Take 325 mg by mouth daily with breakfast. Disc: Reason for discontinue is not on file. hydroxychloroquine sulfate(PLAQUENIL* 180 3 12/21/2009 11/28/2017 Class: Print RX Route: ORAL Sig: Take one(1) tablet twice daily. Disc: Reason for discontinue is not on file. Cosign accepted by JAMES BUSTAMANTE MD[[id number]] on 12/21/2009 5:51 PM potassium chloride (KLOR-CON 10) 10 * 22 t* 0 01/15/2013 11/28/2017 Sig: Take 2 pills twice daily for 2 days then 2 pills once daily for 7 days. Disc: Reason for discontinue is not on file. bacitracin 500 unit/gram ointment 15 g 0 10/05/2014 11/28/2017 Route: TOPICAL Sig: Apply 1 application to affected area twice daily. To sore on face until healed Disc: Reason for discontinue is not on file. predniSONE (DELTASONE) 5 mg tablet 30 t* 0 02/09/2016 11/28/2017 Route: ORAL Sig: Take 1 tablet by mouth once daily as needed (Rheumatoid Arthritis flare). Disc: Reason for discontinue is not on file. Disposition: Return in about 6 months (around 05/31/2018). 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 No 0 on a scale of 0 to 10 Diet History: wake Breakfast - 9:30-10:00-frappe from [employer], Snack - no Lunch - no Snack - no Dinner - 5:65-3-wqakrggc, lasanga, hamburger helper, Barbadian, Pizza, hamburgers, 1 x per month a banana split (1/2) Snack - chips, pretzels, Beverages - 1 bottle orange Sunkist Allergies: Adhesive; Celexa [Citalopram]; Codeine; Doxycycline Medications: Current Outpatient Prescriptions: cetirizine (ZYRTEC) 10 mg tablet Take 1 tablet by mouth once daily. May take one additional tablet daily as needed Disp: 180 tablet Rfl: 3 hydrOXYzine HCl (ATARAX) 25 mg tablet Take 1 tablet by mouth every 8 hours as needed. Disp: 270 tablet Rfl: 3 PARoxetine (PAXIL) 10 mg tablet Take 1 tablet by mouth once daily. Disp: 90 tablet Rfl: 3 esomeprazole (NEXIUM) 40 mg capsule Take 1 capsule by mouth twice daily before meals. Disp: 180 capsule Rfl: 3 gabapentin (NEURONTIN) 600 mg tablet Take 2 tablets by mouth three times daily. Disp: 540 tablet Rfl: 3 flurandrenolide (CORDRAN) 0.05 % lotion Apply 1 application to affected area twice daily. Disp: 120 mL Rfl: 0 predniSONE (DELTASONE) 5 mg tablet Take 1 tablet by mouth once daily as needed (Rheumatoid Arthritis flare). Disp: 30 tablet Rfl: 0 folic acid-B6-B12 (FOLBEE) 2.5-25-1 mg tab Take 1 tablet by mouth once daily. Disp: 90 tablet Rfl: 0 pregabalin (LYRICA) 100 mg capsule Take 2 capsules by mouth once daily. Dr. Rojas Disp: Rfl: morphine SR (MS CONTIN, ORAMORPH SR) 15 mg 12 hr tablet Take 1 tablet by mouth twice daily. Dr. Polanco Disp: Rfl: 0 bacitracin 500 unit/gram ointment Apply 1 application to affected area twice daily. To sore on face until healed Disp: 15 g Rfl: 0 tiZANidine HCl 6 mg capsule Take 6 mg by mouth three times daily. Disp: Rfl: potassium chloride (KLOR-CON 10) 10 mEq tablet Take 2 pills twice daily for 2 days then 2 pills once daily for 7 days. Disp: 22 tablet Rfl: 0 zolpidem (AMBIEN) 5 mg tablet Take 1 tablet by mouth at bedtime as needed for Sedation. Disp: Rfl: 0 methotrexate, PF, 25 mg/mL Soln 0.75 ml weekly () Disp: Rfl: abatacept (ORENCIA) 125 mg/mL Syrg Inject subcutaneously. Disp: Rfl: Ferrous Sulfate (IRON) 325 mg (65 mg iron) ORAL tablet Take 325 mg by mouth daily with breakfast. Disp: Rfl: Vitamin E 400 unit ORAL Tab Take by mouth. Disp: Rfl: CALCIUM CARBONATE/VITAMIN D3 (CALCIUM 600 + D ORAL) Take by mouth. Disp: Rfl: hydroxychloroquine sulfate(PLAQUENIL 200 MG TAB) Take one(1) tablet twice daily. Disp: 180 Rfl: 3 No current facility-administered medications for this visit. Anthropometrics: Height: Last 1 Encounter Ht Readings: Date: Ht: 11/04/2017 160 cm (5' 3) Current weight: Last 1 Encounter Wt Readings: Date: Wt: 11/04/2017 94.1 kg (207 lb 8 oz) Body mass index is 36.76 kg/m?. Resting Metabolic Rate: 1508 NUTRITION ASSESSMENT: Malnutrition Screening Significant unintentional weight loss? No Eating less than 75% of usual intake for more than 2 weeks? No RECOMMENDED MALNUTRITION DIAGNOSIS: NO MALNUTRITION IDENTIFIED Educational materials provided: none this visit READINESS TO LEARN Cognitive ability: Alert and oriented Motivation to learn: Interested Family support: High - Very involved in pt care Instruction provided to: Patient and Spouse Patient learns best by: Individual Instruction Factors affecting learning: None Physical limitations affecting learning: None Patient presents for initial MNT as relates to elevated blood sugars and cholesterol and for weightloss. Spouse present and supportive. Intake noted for typically one meal per day with high calorie and sugar containing beverages throughout the day. Dinner large portions. Eats at night when letting dogs out. No regular exercise and generally sedentary during the day Nutrition Diagnosis: Food and nutrition related knowledge deficit, related to; lack of prior exposure to information , as evidenced by change in existing diagnosis or condition. Nutrition Intervention 11/04/2017 modify type and amount of food or beverage 1. Aim for breakfast, lunch and dinner, don't skip meals 2. Make own frappe (whey protien, SF chocolate, fat free half n half, stevia/splenda) 3. Have lunch on (sand wich thin or whole grain bread) 4. Follow the Plate Method at lunch and dinner: Use a 9 plate - 1/2 plate vegetables-non starchy such as green beans, greens, broccoli, cauliflower, etc (1 serving of fruit optional outside of plate) - 1/4 plate lean protein-primarily chicken, turkey fish, lean red 1-2 x per week at most (size of palm) - 1/4 plate whole grain or starchy vegetable such as corn, peas, potatoes, beans (size of fist, 1 cup) 5. Avoid evening snack 6. Exercise most days at least 30 minutes, (preferably 45 min) work up to it. Add weight resistance, do core exercises daily. Nutrition Monitoring AND Evaluation: weight loss and labs in target range Criteria: patient update Need for Follow up: 6 weeks Referred/Supervised by: Robby/Dorothy THORNTONT Billing Type: Initial Assess/15 min 2 units SIGNATURE: Vivian Liu MS RD LD PATIENT NAME: Soraya Faust DATE: November 04, 2017 TIME: 9:32 AM CNCNPATED Observed: 11/04/2017 Status: COMPLETED Source: [place] 9:30 AM [facility] REPOSITORY Education (NUTRWS) SORAYA FAUST ([id number]) 1960 F Date Time Provider Department 11/04/17 9:30 AM VIVIAN LIU) ARTEM Reason for Visit: Patient Education [91] Assessment [673] Progress Notes: Vivian Liu RD LD 11/04/2017 10:14 AM Signed Nutrition Therapy Initial Assessment Patient states reason for visit: elevated blood sugars, cholesterol Activity: Patient's exercise is: 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 No 0 on a scale of 0 to 10 Diet History: wake Breakfast - 9:30-10:00-frappe from [employer], Snack - no Lunch - no Snack - no Dinner - 5:65-6-vlgpmvjl, lasanga, hamburger helper, Barbadian, Pizza, hamburgers, 1 x per month a banana split (1/2) Snack - chips, pretzels, Beverages - 1 bottle orange Sunkist Allergies: Adhesive; Celexa [Citalopram]; Codeine; Doxycycline Medications: Current Outpatient Prescriptions: cetirizine (ZYRTEC) 10 mg tablet Take 1 tablet by mouth once daily. May take one additional tablet daily as needed Disp: 180 tablet Rfl: 3 hydrOXYzine HCl (ATARAX) 25 mg tablet Take 1 tablet by mouth every 8 hours as needed. Disp: 270 tablet Rfl: 3 PARoxetine (PAXIL) 10 mg tablet Take 1 tablet by mouth once daily. Disp: 90 tablet Rfl: 3 esomeprazole (NEXIUM) 40 mg capsule Take 1 capsule by mouth twice daily before meals. Disp: 180 capsule Rfl: 3 gabapentin (NEURONTIN) 600 mg tablet Take 2 tablets by mouth three times daily. Disp: 540 tablet Rfl: 3 flurandrenolide (CORDRAN) 0.05 % lotion Apply 1 application to affected area twice daily. Disp: 120 mL Rfl: 0 predniSONE (DELTASONE) 5 mg tablet Take 1 tablet by mouth once daily as needed (Rheumatoid Arthritis flare). Disp: 30 tablet Rfl: 0 folic acid-B6-B12 (FOLBEE) 2.5-25-1 mg tab Take 1 tablet by mouth once daily. Disp: 90 tablet Rfl: 0 pregabalin (LYRICA) 100 mg capsule Take 2 capsules by mouth once daily. Dr. Rojas Disp: Rfl: morphine SR (MS CONTIN, ORAMORPH SR) 15 mg 12 hr tablet Take 1 tablet by mouth twice daily. Dr. Polanco Disp: Rfl: 0 bacitracin 500 unit/gram ointment Apply 1 application to affected area twice daily. To sore on face until healed Disp: 15 g Rfl: 0 tiZANidine HCl 6 mg capsule Take 6 mg by mouth three times daily. Disp: Rfl: potassium chloride (KLOR-CON 10) 10 mEq tablet Take 2 pills twice daily for 2 days then 2 pills once daily for 7 days. Disp: 22 tablet Rfl: 0 zolpidem (AMBIEN) 5 mg tablet Take 1 tablet by mouth at bedtime as needed for Sedation. Disp: Rfl: 0 methotrexate, PF, 25 mg/mL Soln 0.75 ml weekly () Disp: Rfl: abatacept (ORENCIA) 125 mg/mL Syrg Inject subcutaneously. Disp: Rfl: Ferrous Sulfate (IRON) 325 mg (65 mg iron) ORAL tablet Take 325 mg by mouth daily with breakfast. Disp: Rfl: Vitamin E 400 unit ORAL Tab Take by mouth. Disp: Rfl: CALCIUM CARBONATE/VITAMIN D3 (CALCIUM 600 + D ORAL) Take by mouth. Disp: Rfl: hydroxychloroquine sulfate(PLAQUENIL 200 MG TAB) Take one(1) tablet twice daily. Disp: 180 Rfl: 3 No current facility-administered medications for this visit. Anthropometrics: Height: Last 1 Encounter Ht Readings: Date: Ht: 11/04/2017 160 cm (5' 3) Current weight: Last 1 Encounter Wt Readings: Date: Wt: 11/04/2017 94.1 kg (207 lb 8 oz) Body mass index is 36.76 kg/m?. Resting Metabolic Rate: 1508 NUTRITION ASSESSMENT: Malnutrition Screening Significant unintentional weight loss? No Eating less than 75% of usual intake for more than 2 weeks? No RECOMMENDED MALNUTRITION DIAGNOSIS: NO MALNUTRITION IDENTIFIED Educational materials provided: none this visit READINESS TO LEARN Cognitive ability: Alert and oriented Motivation to learn: Interested Family support: High - Very involved in pt care Instruction provided to: Patient and Spouse Patient learns best by: Individual Instruction Factors affecting learning: None Physical limitations affecting learning: None Patient presents for initial MNT as relates to elevated blood sugars and cholesterol and for weightloss. Spouse present and supportive. Intake noted for typically one meal per day with high calorie and sugar containing beverages throughout the day. Dinner large portions. Eats at night when letting dogs out. No regular exercise and generally sedentary during the day Nutrition Diagnosis: Food and nutrition related knowledge deficit, related to; lack of prior exposure to information , as evidenced by change in existing diagnosis or condition. Nutrition Intervention 11/04/2017 modify type and amount of food or beverage 1. Aim for breakfast, lunch and dinner, don't skip meals 2. Make own frappe (whey protien, SF chocolate, fat free half n half, stevia/splenda) 3. Have lunch on (sand wich thin or whole grain bread) 4. Follow the Plate Method at lunch and dinner: Use a 9 plate - 1/2 plate vegetables-non starchy such as green beans, greens, broccoli, cauliflower, etc (1 serving of fruit optional outside of plate) - 1/4 plate lean protein-primarily chicken, turkey fish, lean red 1-2 x per week at most (size of palm) - 1/4 plate whole grain or starchy vegetable such as corn, peas, potatoes, beans (size of fist, 1 cup) 5. Avoid evening snack 6. Exercise most days at least 30 minutes, (preferably 45 min) work up to it. Add weight resistance, do core exercises daily. Nutrition Monitoring AND Evaluation: weight loss and labs in target range Criteria: patient update Need for Follow up: 6 weeks Referred/Supervised by: Robby/Dorothy GALAN Billing Type: Initial Assess/15 min 2 units SIGNATURE: Vivian Liu RD LD PATIENT NAME: Soraya Faust DATE: November 04, 2017 TIME: 9:[address] LD 11/04/2017 9:59 AM Signed 1. Aim for breakfast, lunch and dinner, don't skip meals 2. Make own frappe (whey protien, SF chocolate, fat free half n half, stevia/splenda) 3. Have lunch on (sand wich thin or whole grain bread) 4. Follow the Plate Method at lunch and dinner: Use a 9 plate - 1/2 plate vegetables-non starchy such as green beans, greens, broccoli, cauliflower, etc (1 serving of fruit optional outside of plate) - 1/4 plate lean protein-primarily chicken, turkey fish, lean red 1-2 x per week at most (size of palm) - 1/4 plate whole grain or starchy vegetable such as corn, peas, potatoes, beans (size of fist, 1 cup) 5. Avoid evening snack 6. Exercise most days at least 30 minutes, (preferably 45 min) work up to it. Add weight resistance, do core exercises daily. Document on: 11/04/2017 by: Vivian Liu [[id number]] of: After Visit Summary Document on: 11/04/2017 by: Vivian Liu [[id number]] of: [employer] Operator Worksheet Other instructions from your clinician: 1. Aim for breakfast, lunch and dinner, don't skip meals 2. Make own frappe (whey protien, SF chocolate, fat free half n half, stevia/splenda) 3. Have lunch on (sand wich thin or whole grain bread) 4. Follow the Plate Method at lunch and dinner: Use a 9 plate - 1/2 plate vegetables-non starchy such as green beans, greens, broccoli, cauliflower, etc (1 serving of fruit optional outside of plate) - 1/4 plate lean protein-primarily chicken, turkey fish, lean red 1-2 x per week at most (size of palm) - 1/4 plate whole grain or starchy vegetable such as corn, peas, potatoes, beans (size of fist, 1 cup) 5. Avoid evening snack 6. Exercise most days at least 30 minutes, (preferably 45 min) work up to it. Add weight resistance, do core exercises daily. Primary Visit Diagnosis:Elevated glucose [R73.09] Other Visit Diagnoses:Hyperlipidemia, unspecified hyperlipidemia type [E78.5] Class 2 obesity due to excess calories with body mass index (BMI) of 36.0 to 36.9 in adult, unspecified whether serious comorbidity present [E66.09, Z68.36] Dietary counseling [Z71.3] During your visit today, we recorded the following information about you: Weight Height 94.1 kg 1.6 m Allergies As of Date: 11/04/2017 Noted Allergy Reaction ADHESIVE 03/05/2011 2 - Rash CELEXA (CITALOPRAM) 01/07/2009 8 - GI Upset CODEINE 08/19/2006 Comments: Motion kind of sickness DOXYCYCLINE 04/01/2009 8 - GI Upset Date Reviewed: 11/04/2017 Reviewed by: Vivian (Tad) Alexa - Fully Assessed Prescriptions as of 11/04/2017 Sig: CETIRIZINE 10 MG TABLET Take 1 tablet by mouth once d* HYDROXYZINE HCL 25 MG TABLET Take 1 tablet by mouth every * PAROXETINE 10 MG TABLET Take 1 tablet by mouth once d* ESOMEPRAZOLE MAGNESIUM 40 MG * Take 1 capsule by mouth twice* GABAPENTIN 600 MG TABLET Take 2 tablets by mouth three* FLURANDRENOLIDE 0.05 % LOTION Apply 1 application to affect* PREDNISONE 5 MG TABLET Take 1 tablet by mouth once d* FOLIC ACID-VIT B6-VIT B12 2.5* Take 1 tablet by mouth once d* PREGABALIN 100 MG CAPSULE Take 2 capsules by mouth once* MORPHINE ER 15 MG TABLET,EXTE* Take 1 tablet by mouth twice * BACITRACIN 500 UNIT/GRAM TOPI* Apply 1 application to affect* TIZANIDINE 6 MG CAPSULE Take 6 mg by mouth three time* POTASSIUM CHLORIDE ER 10 MEQ * Take 2 pills twice daily for * ZOLPIDEM 5 MG TABLET Take 1 tablet by mouth at bed* METHOTREXATE SODIUM (PF) 25 M* 0.75 ml weekly () * ABATACEPT 125 MG/ML SUBCUTANE* Inject subcutaneously. * FERROUS SULFATE 325 MG (65 MG* Take 325 mg by mouth daily wi* * VITAMIN E 400 UNIT TABLET Take by mouth. * CALCIUM 600 + D ORAL Take by mouth. * PLAQUENIL 200 MG TABLET Take one(1) tablet twice charlie* Encounter Status:Closed by ALEXA RUIZ RD VIVIAN SAVAGE on 11/04/17 CNCO Observed: 09/02/2017 Status: COMPLETED Source: [place] 7:17 PM [facility] REPOSITORY HNO ID: [id number] Author: Coordinator, Mammography Service: (none) Author Type: Physician Type: Letter Filed: 09/03/2017 11:33 PM Note Text: September 02, 2017 PID: [id number] Soraya Faust [address] [place] [address] Dear Ms. Faust, We are pleased to inform you that the results of your recent breast imaging exam on 09/02/2017 are normal. Early detection of cancer is very important. We also understand recommendations regarding breast cancer screening are controversial. Please discuss with your primary care provider which strategy is best for you and whether a mammogram is right for you. Your imaging studies and report will be kept on file at [facility] as part of your permanent medical record and are available for your continuing care. Thank you for allowing us to help in meeting your health care needs. Sincerely, Dr. Hassan Interpreting Radiologist [facility] (Normal over 40) CBC AND DIFFERENTIAL Collected: 09/02/2017 Status: F Source: [place] 12:22 PM [facility] REPOSITORY TYPE CODE TESTS RESULT OUT OF REFERENCE UNITS RANGE LAB WBC 3.70-11.00 k/uL WBC 4.72 LAB RBC 3.90-5.20 m/uL RBC 3.99 LAB HGB 11.5-15.5 g/dL Hemoglobin 12.1 LAB HCT 36.0-46.0 % Hematocrit 39.3 LAB MCV 80.0-100.0 fL MCV 98.5 LAB MCH 26.0-34.0 pG MCH 30.3 LAB MCHC 30.5-36.0 g/dL MCHC 30.8 LAB RDWCV 11.5-15.0 % RDW-CV 12.1 LAB PLTCT 150-400 k/uL Platelet Count 163 LAB MPV 9.0-12.7 fL MPV 9.0 LAB ANEUT % Neut% 61.7 LAB AANEUT 1.45-7.50 k/uL Abs Neut 2.91 LAB ALYMP % Lymph% 26.7 LAB AALYMP 1.00-4.00 k/uL Abs Lymph 1.26 LAB AMONO % Gage% 8.7 LAB AAMONO <0.87 k/uL Abs Gage 0.41 LAB AEOS % Eosin% 2.5 LAB AAEOS <0.46 k/uL Abs Eosin 0.12 LAB ABASO % Baso% 0.4 LAB AABASO <0.11 k/uL Abs Baso <0.03 LAB AUNRBC 0 /100 WBC NRBCs 0.0 LAB ABNRBC <0.01 k/uL Absolute nRBC <0.01 LAB DTYP DTYPE Auto Diff Performed By: #### CBCDIF, BMP, LIPB, TSH, HBA1C #### [facility] [address] [place], [place] [address] BASIC METABOLIC PANL Collected: 09/02/2017 Status: F Source: [place] 12:22 PM [facility] REPOSITORY TYPE CODE TESTS RESULT OUT OF REFERENCE UNITS RANGE LAB GLU 74-99 mg/dL High Glucose 109 Result Comment: The [place] Diabetes Association (ADA) provides guidance for cutoff values for fasting glucose and random glucose. The ADA defines fasting as no caloric intake for at least 8 hours. Fas ting plasma glucose results between 100 to 125 mg/dL indicate increased risk for diabetes (prediabetes). Fasting plasma glucose results greater than or equal to 126 mg/dL meet the criteria for diagnosis of diabetes. In the absence of unequivocal hyperglycemia, results should be confirmed by repeat testing. In a patient with classic symptoms of hyperglycemia or hyperglycemic crisis, random plasma glucose results greater than or equal to 200 mg/dL meet the criteria for diagnosis of diabetes. Reference: Standards of Medical Care in Diabetes 2016, [place] Diabetes Association. Diabetes Care. 2016.39(Suppl 1). LAB BUN 7-21 mg/dL BUN 15 LAB CRET 0.58-0.96 mg/dL Creatinine 0.68 LAB NA 136-144 mmol/L Sodium 140 LAB K 3.7-5.1 mmol/L Potassium 4.5 LAB CL 97-105 mmol/L Chloride 100 LAB CO2 22-30 mmol/L CO2 28 LAB AGAP 9-18 mmol/L Anion Gap 12 LAB CA 8.5-10.2 mg/dL Calcium, Total 8.5 LAB GFRAA eGFR- Amer. >60 LAB GFRNAA . eGFR-All Other Races >60 Result Comment: eGFR (Estimated GFR) Units of measure: mL/min/1.73 meters squared eGFR is derived from the reexpressed MDRD Study equation using the following parameters: serum creatinine, age, gender and race. The creatinine assay has been calibrated to be traceable to IDMS. An eGFR <60 mL/min/1.73m2 for >3 months is consistent with chronic kidney disease. Refer to KDOQI guidelines for clinical interpretation. In patients with unstable renal function, e.g. those with acute kidney injury, the eGFR may not accurately reflect actual GFR. Performed By: #### CBCDIF, BMP, LIPB, TSH, HBA1C #### [facility] [address] [place], [place] [address] LIPID PANEL, BASIC Collected: 09/02/2017 Status: F Source: [place] 12:22 PM [facility] REPOSITORY TYPE CODE TESTS RESULT OUT OF REFERENCE UNITS RANGE LAB CHOL <200 mg/dL Cholesterol High 261 Result Comment: <200 mg/dL, Desirable 200-239 mg/dL, Borderline high >239 mg/dL, High LAB TRIGLY <150 mg/dL Triglyceride High 279 Result Comment: <150 mg/dL, Normal 150-199 mg/dL, Borderline high 200-499 mg/dL, High >499 mg/dL, Very high LAB HDL >39 mg/dL HDL-Cholesterol 56 Result Comment: 40-59 mg/dL, Acceptable >59 mg/dL, High: Negative risk factor for coronary heart disease <40 mg/dL, Low: Positive risk factor for coronary heart disease LAB LDL <100 mg/dL LDL-Cholesterol High 149 Result Comment: <100 mg/dL, Optimal 100-129 mg/dL, Near optimal/above optimal 130-159 mg/dL, Borderline high 160-189 mg/dL, High >189 mg/dL, Very high Secondary prevention optimal LDL Cholesterol levels are recommended to be < 70 mg/dL LAB NONHDL <130 mg/dL Non HDL High Cholesterol 205 Result Comment: <130 mg/dL, Optimal 130-159 mg/dL, Near optimal/above optimal 160-189 mg/dL, Borderline high 190-219 mg/dL, High >219 mg/dL, Very high Secondary prevention optimal non HDL Cholesterol levels are recommended to be < 100 mg/dL LAB FT hrs Fasting Time 12 LAB VLDL <30 mg/dL High VLDL Cholesterol 56 LAB TCHDL <5.10 TC:HDL Ratio 4.66 LAB LDLHDL <2.54 High LDL:HDL Ratio 2.66 Result Comment: Reference: 1. National Cholesterol Education Program ATP III Guideline At-A-Glance Quick Desk Reference: National Heart, Lung, and Blood [place]. National Institutes of Health. 2001: NIH Publication No. 01-3305. 2. An International Atherosclerosis Society position paper: global recommendations for the management of dyslipidemia: executive summary, Atherosclerosis. 2014: 232(2):410-413. Performed By: #### CBCDIF, BMP, LIPB, TSH, HBA1C #### [facility] [address] [address] TSH Collected: 09/02/2017 Status: F Source: [place] 12:22 PM [facility] REPOSITORY TYPE CODE TESTS RESULT OUT OF RANGE REFERENCE UNITS LAB TSH 0.400-5.500 uU/mL TSH 1.560 Performed By: #### CBCDIF, BMP, LIPB, TSH, HBA1C #### [facility] [address] [place], [place] [address] HEMOGLOBIN A1C Collected: 09/02/2017 Status: F Source: [place] 12[facility] TYPE CODE TESTS RESULT OUT OF REFERENCE UNITS RANGE LAB HGBA1C 4.3-5.6 % High Hemoglobin A1c 6.2 LAB HBA0 mg/dL Est. Average Glucose 131 Result Comment: eAG: (Estimated average glucose) is a calculated value from HgbA1c and is international representative of the average blood glucose level in the last 2-3 month period. Performed By: #### CBCDIF, BMP, LIPB, TSH, HBA1C #### [facility] [address] [place], [place] [address] ASHLEY SCREENING Observed: 09/02/2017 Status: F Source: [place] 12[facility] * * *Final Report* * * DATE OF EXAM: Sep 02 2017 12:00PM [id number] - [facility] SCREENING / PROCEDURE REASON: Encounter for screening mammogram for malignant neoplasm of breast * * * * Physician Interpretation * * * * RESULT: #[id number] - ASHLEY SCREENING BILATERAL DIGITAL SCREENING MAMMOGRAM WITH CAD: 09/02/2017 HISTORY: Encounter For Screening Mammogram For Malignant Neoplasm Of Breast /patient reports no breast symptoms /priors available for comparison /SEE TECH NOTE. RESULT: TECHNIQUE: The study was acquired using full field digital technology and interpreted from soft copy. Current study was also evaluated with a Computer Aided Detection (CAD). Comparison is made to exams dated: 12/08/2012 mammogram and 12/05/2011 mammogram - [facility]. The tissue of both breasts is predominantly fatty. No significant masses, calcifications, or other findings are seen in either breast. There has been no significant interval change. IMPRESSION: NEGATIVE There is no mammographic evidence of malignancy. A 1 year screening mammogram is recommended. Liane isidro/shirin:09/02/2017 19:17:31 Selling Specialist: Tracy BLACKMAN(Rose)(Jeff), [facility] letter sent: Normal over 40 Mammogram BI-RADS: 1 Negative 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Shirin Transcribe Date/Time: Sep 02 2017 11:40A Dictated by: LIANE HASSAN MD This examination was interpreted and the report reviewed and electronically signed by: LIANE HASSAN MD on Sep 02 2017 7:17PM EST [id number] PROGRESS Observed: 09/02/2017 Status: COMPLETED Source: [place] 11:40 AM [facility] REPOSITORY HNO ID: [id number] Author: Katie Patel Service: (none) Author Type: (none) Type: Progress Notes Filed: 09/02/2017 11:58 AM Note Text: Radiology Service Progress Note PATIENT NAME: Soraya Faust DATE OF SERVICE: September 02, 2017 TIME: 11:40 AM PATIENT IDENTITY VERIFICATION COMPLETED USING TWO (2) METHODS: Patient confirmed name verbally and Date of . PATIENT GENDER DATA: Female. status: : No status: NO. PATIENT RELEVANT IMPLANT DATA REVIEWED: Not Applicable RADIOLOGY DEPARTMENT: Women's Health ev scr mamogram PERIPHERAL IV DATA: Not applicable SIGNED BY: Katie Nice Rt September 02, 2017 11:40 AM LUMBAR SPINE 2 OR 3 Observed: 07/01/2017 Status: F Source: [place] VIEWS 9:45 AM [facility] REPOSITORY [facility] Imaging Services [address] [place] [address] Lumbar Spine 2 or 3 Views MR#: [id number] Acct: [id number] Name: SORAYA FAUST Rep #: [id number] : 1960 F 56 From: Jose Ramon Ojeda MD PCP: James Bustamante MD Status: REG CLI Study: Lumbar Spine 2 or 3 Views Date of Exam: 07/01/17 Exam# [id number] Ordering Dr: Felicitas Polanco MD STUDY: X-RAY - LUMBAR SPINE REASON FOR EXAM: Female, 56 years old. Pain after fall 2-3 months ago. TECHNIQUE: 3 view(s) of the lumbar spine were obtained. COMPARISON: CT of the lumbar spine dated December 29, 2014. FINDINGS: There is generalized osteopenia. There is posterior fusion from L4 to S1 with anterior intervertebral fusion at L4-5 and L5-S1, unchanged in position or alignment. There is diffuse facet sclerosis. There is moderate spondylosis of the lower thoracic region. There is an epidural catheter present and unchanged. RAD/Lumbar Spine 2 or 3 Views IMPRESSION: Stable postsurgical changes without complications. Generalized osteopenia with thoracolumbar spondylosis unchanged. No new or acute pathology. Electronically Signed: Jose Ramon Ojeda MD at 16:59 EST , Service support , CC: Felicitas Polanco MD; James Bustamante MD 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Signed THORACIC SPINE 3 Observed: 07/01/2017 Status: F Source: [place] VIEWS 9:45 AM [facility] REPOSITORY [facility] Imaging Services [address] [place] [address] Thoracic Spine 3 Views MR#: [id number] Acct: [id number] Name: SORAYA FAUST Rep #: [id number] : 1960 F 56 From: Jose Ramon Ojeda MD PCP: James Bustamante MD Status: REG CLI Study: Thoracic Spine 3 Views Date of Exam: 07/01/17 Exam# [id number] Ordering Dr: Felicitas Polanco MD STUDY: X-RAY - THORACIC SPINE REASON FOR EXAM: 3, 56 years old. Fall 2-3 months ago. Increasing thoracic spine pain. TECHNIQUE: 3 view(s) of the thoracic spine were obtained. COMPARISON: Report of thoracic spine images dated January 06, 2010. FINDINGS: There is generalized osteopenia. Normal kyphosis of the thoracic spine. There is no substantial scoliosis. There is a new anterior wedge compression deformity of the T11 vertebral body, age undetermined. There is diffuse intervertebral disc space narrowing with osteophyte formation unchanged. There is an epidural stimulator unchanged in position. There is anterior fusion of the lower cervical spine unchanged. RAD/Thoracic Spine 3 Views IMPRESSION: Osteopenia with diffuse spondylosis and spinal stimulator. New anterior wedge compression deformity of T11, age undetermined. 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Signed CBC W/DIFF, AUTOMATED Collected: 07/01/2017 Status: F Source: [place] 9:30 AM [facility] REPOSITORY TYPE CODE TESTS RESULT OUT OF RANGE REFERENCE UNITS LAB L100.1000 4.4-11.0 K/mm3 Normal WBC 5.4 LAB L100.1200 4.2-5.4 M/mm3 Normal RBC 4.55 LAB L100.1300 12.0-15.0 g/dl Normal HGB 13.8 LAB L100.1400 37-47 % Normal HCT 43.1 LAB L100.1500 81-99 fL Normal MCV 94.7 LAB L100.1600 27.0-32.0 pg Normal MCH 30.3 LAB L100.1700 32-36 g/gl Normal MCHC 32.0 LAB L100.1810 11.6-14.6 % High RDW CV 15.4 LAB L100.1820 35.1-43.9 fl High RDW SD 52.8 LAB L100.1900 150-450 K/mm3 Normal PLT 302 LAB L100.2000 6.2-12.0 fl Normal MPV 8.6 LAB L100.2100 47-70 % Normal NEUT% 59.7 LAB L100.2200 19-41 % Normal LY% 26.3 LAB L100.2300 0-10 % High MONO% 12.7 LAB L100.2400 0-5 % Normal EO% 0.7 LAB L100.2500 0-1 % Normal BASO% 0.2 LAB L100.2550 0.0-0.9 % Normal IM GRAN % 0.400 Result Comment: IG% - Immature Granulocytes (promyelocytes, myelocytes and metamyelocytes) > 1% indicates that a LEFT SHIFT is Present. LAB L100.2620 2.0-7.7 X10 3/uL Normal Absolute Neut 3.2 LAB L100.2720 0.83-4.51 X10 3/ul Normal Absolute Lymph 1.43 Performed By: #### L100.0100 #### [facility] [address] [place], [address] COMPREHENSIVE METABOLIC Collected: 07/01/2017 Status: F Source: [facility] 9:30 AM [facility] REPOSITORY TYPE CODE TESTS RESULT OUT OF RANGE REFERENCE UNITS LAB L501.0100 74-106 mg/dL High GLU 120 Result Comment: Fasting Glucose result from 100 to 125 mg/dL suggests IMPAIRED HOMEOSTASIS per A.D.A. criteria. Please note revised GLUCOSE reference range effective 2017. LAB L501.1000 7-18 mg/dL High BUN 24 LAB L501.1100 0.55-1.02 mg/dL Normal CREAT,SERUM 0.68 Result Comment: The validity of the calculated GFR AND GFRAA in patients over 70 years has not been determined. Clinical correlation is essential. LAB L501.1110 >60 mL/min Normal EST GFR 95 Result Comment: Non- GFR Calc LAB L501.1115 >60 mL/min Normal EST GFR - AA 115 Result Comment: GFR Calc LAB L501.1300 10-20 RATIO High BUN/CRE 35.2 LAB L501.1500 6.4-8.2 g/dL T Normal PROT 7.4 LAB L501.1800 3.2-5.0 g/dL Normal ALB 3.7 LAB L501.1950 2.2-4.2 g/dL Normal GLOB 3.7 LAB L501.2000 0.9-2.4 RATIO Normal A/G 1.0 LAB L501.2200 8.5-10.1 mg/dL Low CA 8.2 LAB L501.4100 15-37 U/L Normal AST 20 LAB L501.4305 45-117 U/L High ALK P 120 LAB L501.4405 13-56 U/L Normal ALT 39 Result Comment: Please note revised ALT reference range effective 2017. LAB L501.4600 0.20-1.00 mg/dL Normal T BILI 0.30 LAB L501.5300 136-145 mmol/L Normal NA 139 LAB L501.5600 3.5-5.1 mmol/L Normal K 4.4 LAB L501.5900 98-107 mmol/L Normal CL 102 LAB L501.6100 21.0-32.0 mmol/L Normal CO2 30.0 LAB L501.6200 5-15 Normal GAP 7 Performed By: #### L500.4050 #### [facility] [address] [place] [address]. [place], [place], [address] ALLERGIES ALLERGIES DATE TYPE / CODE NAME / CODE REACTION SEVERITY SOURCE 08/24/2016 Drug adhesive/[id number] blisters Unknown [place] Allergy/416 5(RXNORM) [place] [address]([facility]) Repository 08/23/2016 Drug codeine/[id number] Nausea Unknown [place] Allergy/416 (RXNORM) [place] 641352([facility]) Repository 03/05/2011 DRUG ADHESIVE RASH [facility] INGREDI/[address] [place] 897789([facility] Repository ED CT) 04/01/2009 DRUG DOXYCYCLINE GI UPSET Low [facility] INGREDI/[address] [place] 460602([facility] Repository ED CT) 01/07/2009 DRUG CITALOPRAM GI UPSET [facility] INGREDI/[address] [place] 501912(SNOM Repository ED CT) 08/19/2006 DRUG CODEINE [facility] INGREDI/[address] [place] 380061(SNOM Repository ED CT) ENCOUNTERS ENCOUNTERS ADMIT/DISCHARGE ACCOUNT ADMITTING ENCOUNTER LOCATION SOURCE NUMBER CLASS 05/08/2018/05/09/19 [id number] Ambulatory [address] [place] Repository 04/08/2018 [id number] [facility] ing:LAB Repository 04/07/2018/04/07/[id number] ing:ENRoom: Repository AC17 03/03/2018/03/03/20 [id number] Ambulatory [address] [place] Repository 02/27/2018/03/05/20 [id number] Ambulatory [address] [place] Repository 01/08/2018 [id number] [facility] ing:MTLAB Repository 12/13/2017/12/14/19 [id number] Ambulatory [address] [place] Repository 12/12/2017/12/13/19 [id number] Ambulatory [address] [place] Repository 12/12/2017/12/14/19 [id number] Ambulatory [address] [place] Repository 12/05/2017/12/06/19 [id number] Ambulatory [address] [place] Repository 12/04/2017/12/06/19 [id number] Ambulatory [address] [place] Repository 12/04/2017/03/01/20 [id number] Ambulatory [address] [place] Repository 11/28/2017/11/29/19 [id number] Ambulatory [address] [place] Repository 11/28/2017/11/30/19 [id number] Ambulatory [address] [place] Repository 11/04/2017/11/06/19 [id number] Ambulatory [address] [place] Repository 09/02/2017/09/03/19 [id number] Ambulatory [address] Repository 09/02/2017/09/03/19 [id number] Ambulatory [address] Repository 07/01/2017 [id number] [facility] ing:LAB Repository PAYERS PAYERS ENCOUNTER GUARANTOR PAYER SUBSCRIBER SOURCE 04/08/2018 SORAYA Aguilar Primary SORAYA [id number] Insurance:JUDE MCDOWELLDOB: [facility] PLAN [id number] Number: Repository [id number]: 330 [id number] [phone] (HP) Date:0905-39-46JJ [facility] [address] [place] [address]ON: 04/08/2018 Secondary NOT GIVENUNK [place] Insurance:SELF PAY [facility] Number: Effective Repository Date:2018-04-08 04/07/2018 SORAYA Aguilar Primary SORAYA [place] [id number] Insurance:JUDE MCDOWELLDOB: [id number] Number: Repository [id number]: [phone] [id number] [phone] (HP) Date:6111-17-08HE [facility] [place] [address]NA: 04/07/2018 Secondary NOT GIVENUNK [place] Insurance:SELF PAY [facility] Number: Effective Repository Date:2018-03-11 01/08/2018 Soraya Aguilar Primary SORAYA [place] [id number] Insurance:JUDE MCDOWELLDOB: [facility] [id number] [place] Number: Repository [id number]: [phone] [id number] [phone] (HP) Date:[id number] [address], [place] [address]QT: 01/08/2018 Secondary NOT GIVENUNK [place] Insurance:SELF PAY [facility] Number: Effective Repository Date:2018-01-08 07/01/2017 Soraya Aguilar Primary SORAYA [place] [id number] Insurance:JUDE ABDI: [facility] HEALTH PLAN [id number] Number: Repository [id number]: [id number] [phone] Date:1163-63-56DZ [address] [address]GE: 07/01/2017 Secondary NOT GIVENMASHA [place] Insurance:SELF PAY [facility] Number: Effective Repository Date:2017-07-01
--- OUTSIDE RECORDS SUMMARY | 2018-05-25 12:44 | XMS RPT_ITS ---
:1960 Author Organization [facility] [employer] Address [address] [place] [address] Phone Care Team Providers Name Role Phone Edison WOLFE, Josh Rose Unavailable Reason for Visit Reason For Visit Description Start Date New Complaint Preliminary reason for visit data, not yet signed by the author as of left hip pain Preliminary reason for visit data, not yet signed by the author as of Chief Complaint Chief Complaint Description Start Date left hip pain Preliminary chief complaint data, not yet signed by the author as of Instructions Instruction Description Start Date Patient advised to follow-up with Primary Care Physician for BMI management. Plan of Care Type Date Detail Appointment 01:00 PM Josh Hogan MD, [address] [place] [address], [address], [place], [address], Pending order XR PELVIS W HIP 2-3 VWS-LT Pending order Musculoskeletal ultrasound- nonvascular - left lower extremity Medications Medication Instructions Start Stop Generic Name NDC Provider Date Date PLAQUENIL TABS two tabs a day HYDROXYCHLOROQUINE [id number] Josh SULFATE TABS Edison WOLFE ORENCIA 1 injection ABATACEPT [id number] Chanelle CLICKJECT 125 weekly /14 [place] STONECUTTER MG/ML SOAJ METHOTREXATE .75 injection METHOTREXATE SODIUM 65293018375 Chanelle SODIUM SOLN weekly /14 SOLN [place] STONECUTTER NABUMETONE 500 1 tablet daily NABUMETONE 15071174376 Chanelle MG TABS /14 [place] STONECUTTER NEURONTIN 600 2 tablets 3 GABAPENTIN 36460558034 Chanelle MG TABS times daily /14 [place] STONECUTTER ZANAFLEX TABS 1 tablet daily TIZANIDINE HCL TABS 36619568710 Chanelle 2 tablets /14 [place] STONECUTTER nightly MORPHINE 1 capsule MORPHINE SULFATE 29555013326 Chanelle SULFATE ER 10 twice daily / [place] STONECUTTER MG XL26R-VIR PERCOCET 5-325 1 tablet twice OXYCODONE-ACETAMINOP 25366026766 Chanelle MG TABS daily /14 HEN [place] STONECUTTER HYDROXYZINE 1 tablet daily HYDROXYZINE HCL TABS 39517278526 Chanelle HCL TABS as needed / [place] STONECUTTER TYLENOL 8 HOUR 1 tablet daily ACETAMINOPHEN 64022135115 Chanelle 650 MG CR-TABS as needed / [place] STONECUTTER ALLERGY 10 MG 1 tablet daily LORATADINE 59134015712 Chanelle TABS /19 [place] STONECUTTER IRON 325 (65 1 tablet daily FERROUS SULFATE 18805765716 Chanelle Fe) MG TABS /19 [place] STONECUTTER VITAMIN E 400 1 tablet daily VITAMIN E 40975149174 Chanelle UNIT TABS / [place] STONECUTTER CALCIUM 600 + 2 tablets CALCIUM 28832902647 Chanelle D TABS daily / CARB-CHOLECALCIFEROL [place] STONECUTTER TABS Conditions or Problems Problem Name Problem Onset Status Entry Provider Comment Standard Annotate Code Date Date Description Strain of S76.012D Active Josh R Strain of partial muscle (ICD-10-C / Laskovski muscle, glut tear fascia and M) MD fascia and tendon of tendon of left hip left hip, subsequent subsequent encounter encounter Strain of S76.012D Active Josh R Strain of muscle (ICD-10-C /25 Laskovski muscle, fascia and M) MD fascia and tendon of tendon of left hip left hip, subsequent subsequent encounter encounter Strain of S76.011A Active Claudio A Strain of Gluteus muscle (ICD-10-C / Paul PAC muscle, Tear fascia and M) fascia and tendon of tendon of right hip right hip, initial initial encounter encounter Other M24.151 Active Claudio A Other Labral articular (ICD-10-C Paul PAC articular Tear cartilage M) cartilage disorders disorders, right hip right hip Other M25.851 Active Claudio A Other LOU specified (ICD-10-C Paul PAC specified joint M) joint disorders disorders, right hip right hip Allergies, Adverse Reactions, Alerts Allergy Name Reaction Start Date Severity Status Provider Description ADHESIVE TAPE blisters Critical Active Claudio A Paul PAC CODEINE n/v Critical Active Claudio A Paul PHOSPHATE PAC Social History No information available. Vital Signs Date Name Value Unit Description BMI (Body Mass 37.81 kg/m2 Body Mass Index Index) [Ratio] Preliminary vital sign data, not yet signed by the author as of BP Diastolic 76 mm[Hg] blood pressure, diastolic Preliminary vital sign data, not yet signed by the author as of BP Systolic 121 mm[Hg] blood pressure, systolic Preliminary vital sign data, not yet signed by the author as of Heart Rate 94 /min pulse rate E&M Preliminary vital sign data, not yet signed by the author as of Height 62 [in_us] height E&M Preliminary vital sign data, not yet signed by the author as of Height 157 cm height in centimeters E&M Preliminary vital sign data, not yet signed by the author as of Weight Measured 206 [lb_av] weight E&M Preliminary vital sign data, not yet signed by the author as of Weight Measured 94 kg weight in kilograms E&M Preliminary vital sign data, not yet signed by the author as of Results Date Name Value Unit Range Flag Description Office Visit: New Complaint, Rm: 8 MEDS REVIEW Done Documentation of current medications (procedure) Preliminary observation data, not yet signed by the author as of Preliminary observation data, not yet signed by the author as of Clinical Summary: HMSPatientID GOP account number Clinical Lists Update: Preload Extended SMOK STATUS former smoker Tobacco smoking status NHIS Procedures Code Procedure Name Date Entry Date G8730 Pain assessment documented as positive - follow-up documented G8427 Current medications documented 1036F Tobacco screening was negative - non user G8417 BMI documented as above normal parameters - follow-up documented G8783 Blood pressure within normal parameters - no follow-up required [facility]-[id number] Patient Encounter Medications Administered No information available. Immunizations No information available. Advance Directives There may be information available, but it has not been provided by the sender. Assessments There may be information available, but it has not been provided by the sender. Review of Systems There may be information available, but it has not been provided by the sender. Family History There may be information available, but it has not been provided by the sender. History of Past Illness There may be information available, but it has not been provided by the sender. History of Present Illness There may be information available, but it has not been provided by the sender.
== END ==
PROVIDERS: Family Provider Internal Medicine; PCP Internal Medicine; Referring Provider Internal Medicine Rheumatology; Visit Provider Internal Medicine Rheumatology
DX: M06.09 Rheumatoid arthritis without rheumatoid factor, multiple sites (principal); M79.7 Fibromyalgia; M18.0 Bilateral primary osteoarthritis of first carpometacarpal joints; M15.9 Polyosteoarthritis, unspecified; M47.897 Other spondylosis, lumbosacral region; I87.2 Venous insufficiency (chronic) (peripheral); Z79.899 Other long term (current) drug therapy
CPT/HCPCS: 36415; 80053; 85025

== ENCOUNTER → 2018-07-15 14:38 | Outpatient (CLI) | payer MEDICARE, SELFPAY ==
[2018-04-07 12:56] VITALS: BMI 36.1
[2018-07-15 17:34] LABS: Absolute Lymphocyte Count 1.11 X10^3/ul (0.83-4.51); Absolute Neutrophil Count 2.5 X10^3/uL (2.0-7.7); Basophil# 0.01 X10^3/uL; Basophil% 0.2 % (0-1); Eosinophil# 0.16 X10^3/uL; Eosinophils% 3.6 % (0-5); Hematocrit 40.4 % (37-47); Hemoglobin 12.1 g/dl (12.0-15.0); Lymphocyte # 1.11 X10^3/ul (4.0); Lymphocyte % 25.2 % (19-41); Mean Corpuscular Volume 93.5 fL (81-99); Mean Platelet Vol. 8.5 fl (6.2-12.0); Monocyte# 0.64 X10^3/uL; Monocyte% 14.5 % (0-10); Neutrophil # 2.47 X10^3/uL (2.7-7.7); Neutrophil % 56.3 % (47-70); Platelet Count 203 K/mm3 (150-450); RBC Distribution Width CV 15.2 % (11.6-14.6); RBC Distribution Width SD 50.9 fl (35.1-43.9); Red Blood Count 4.32 M/mm3 (4.2-5.4); White Blood Count 4.4 K/mm3 (4.4-11.0)
[2018-07-15 17:50] LABS: AST(SGOT) 22 U/L (15-37); Alanine Aminotransfer ALT/SGPT 41 U/L (13-56); Albumin, Serum 3.5 g/dL (3.2-5.0); Alkaline Phosphatase 92 U/L (45-117); Anion Gap 9 (5-15); BUN 18 mg/dL (7-18); BUN/Creat Ratio 28.9 RATIO (10-20); Calcium,Total 8.9 mg/dL (8.5-10.1); Chloride 103 mmol/L (98-107); Creatinine, Serum 0.62 mg/dL (0.55-1.02); EST Glomerular Filtration Rate 106 mL/min (>60); Est Glom Filt Rate - Afr Amer 128 mL/min (>60); Globulin 3.4 g/dL (2.2-4.2); Glucose 88 mg/dL (74-106); Potassium 4.3 mmol/L (3.5-5.1); Protein, Total 6.9 g/dL (6.4-8.2); Sodium Level 141 mmol/L (136-145)
[2018-07-15 17:57] LABS: POSITIVE COUNT NO; POSITIVE DIFFERENTIAL NO; POSITIVE MORPHOLOGY NO
== END ==
PROVIDERS: Family Provider Internal Medicine; PCP Internal Medicine; Referring Provider Internal Medicine Rheumatology; Visit Provider Internal Medicine Rheumatology
DX: M06.09 Rheumatoid arthritis without rheumatoid factor, multiple sites (principal); M79.7 Fibromyalgia; M18.0 Bilateral primary osteoarthritis of first carpometacarpal joints; M47.897 Other spondylosis, lumbosacral region; I87.2 Venous insufficiency (chronic) (peripheral); Z79.899 Other long term (current) drug therapy
CPT/HCPCS: 36415; 80053; 85025

== ENCOUNTER 2018-09-27 15:00 | Inpatient (IN) | payer MEDICARE, SELFPAY ==
[2018-04-07 12:56] VITALS: BMI 36.1
[2018-09-27 15:20] VITALS: BP 131/84; PULSE 85; RESP 18; TEMP 37.1; O2SAT 95; BMI 39.3; BMI 97.5
--- NOTE | 2018-09-27 15:20 | NURSING ---
Addendum entered by Albert Bajwa 09/27/18 15:23: at 1500 Original Note: pt arrived from [facility] via w/ch
[2018-09-27 16:00] VITALS: BP 131/84; PULSE 85; RESP 20; TEMP 37.1; O2SAT 95
[2018-09-27] MEDS: Pantoprazole Sodium 40 MG Tablet PO (16:55)
[2018-09-27] MEDS: Hydroxychloroquine 200 MG Tablet PO (16:55)
[2018-09-27] MEDS: tiZANidine HCl 2 MG Tablet 4 MG PO ×2 (16:55→21:07)
--- NOTE | 2018-09-27 17:56 | PCM.HP.STD ---
Problem List (1) Debility Status: Acute (2) Morbid obesity Status: Chronic (3) Osteoarthritis Status: Chronic (4) Rheumatoid arthritis Status: Chronic (5) Neuropathic pain Status: Chronic (6) Insomnia Status: Chronic (7) GERD (gastroesophageal reflux disease) Status: Chronic (8) Depression Status: Chronic (9) Muscle spasm Status: Chronic (10) Left hip pain Status: Acute History of Present Illness Date of Admission: 09/27/18 Chief Complaint: Here for rehabilitation, strengthening, prior to discharge home with spouse. The patient is a 58 year old Female with below past medical history significant for both rheumatoid arthritis, osteoarthritis, underwent left hip arthroscope with debridement, gluteus medius repair, trochanteric bursectomy, IT band resection 09/26/2018, non-weight bearing left lower extremity, admitted to TCU with debility, here for rehabilitation, strengthening, prior to discharge home with spouse. Past Medical History Past Medical History (Chronic Problems): Chronic Problems Morbid obesity (Chronic) Osteoarthritis (Chronic) Rheumatoid arthritis (Chronic) Neuropathic pain (Chronic) Insomnia (Chronic) GERD (gastroesophageal reflux disease) (Chronic) Depression (Chronic) Muscle spasm (Chronic) Allergies adhesive Allergy (Verified 08/24/16 13:02) blisters codeine Adverse Reaction (Verified 08/23/16 14:17) Nausea Home Medications: Ambulatory Orders Medication Instructions Recorded Esomeprazole Mag Trihydrate 40 mg PO BID 02/04/13 [Nexium] Gabapentin [Neurontin] 1,200 mg PO TID 02/04/13 Hydroxychloroquine [Plaquenil] 200 mg PO BIDCM 02/04/13 Methotrexate 0.75 ml SQ HICKEY 02/04/13 Abatacept [Orencia] 125 mg SQ HICKEY 12/29/14 Paroxetine [Paxil] 10 mg PO QHS 12/29/14 HydrOXYzine [Atarax] 75 mg PO QHS 08/23/16 Oxycodone HCl/Acetaminophen 1 - 2 tablet PO Q6H PRN PRN 08/23/16 [Percocet 5/325] Aspirin 325 mg PO DAILY@0800 09/27/18 Naproxen [Naprosyn] 500 mg PO BREAKFAST 09/27/18 Tizanidine HCl [Zanaflex] 4 mg PO TID 09/27/18 Surgical History: - - C5-C6 removed, breast reduction 2009, spinal stimulator 2007, spine fusion atnerior lumbar interobody fusion INTERMEDIATE 2013 L3-S1, Right hip scope with gluteus medius and minimus repair debridement of calcific tendinitis allograft augmentation thickness trochanteric bursectomy iliotibial band repair 2016, spinal stimulator battery 2017, bilateral legs with bypass grafts 2011, 2012. 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 Lives: Spouse/ Significant Other Smoking Status: Former smoker Tobacco Use: Cigarettes Alcohol: None Drugs: None - *Family History Maternal History Items: No pertinent history Paternal History Items: No pertinent history Review of Systems Constitutional: Denies: Chills, Fever, Weight Change HEENT: Denies: Head Aches, Sinus Congestion, Sinus Drainage Cardiovascular: Denies: Chest Pain, Palpitations Respiratory: Denies: Cough, Shortness of breath at rest, Sputum production Gastrointestinal: Denies: Abdominal Pain, Nausea, Vomiting Genitourinary: Denies: Dysuria Musculoskeletal: Denies: Joint Pain, Joint Tenderness Skin: Reports: Pruritis. Denies: Rash, Wounds Neurological: Denies: Numbness, Tingling, Focal weakness Psychiatric: Denies: Anxiety, Depression, Homicidal Ideations, Suicidal Ideations Hematologic/ Lymphatic: Denies: Easy Bruising, Easy Bleeding VTE Information - Inpt Only VTE Present on Admission: No VTE Mechan Device Prophylaxis: Knee High YUNIOR Hose VTE Pharm Prophylaxis ordered?: Yes Patient Problems: Active and Suspected Problems Left knee pain (Acute) Debility (Acute) Left hip pain (Acute) - Physical Exam General: Alert, Oriented x3, Cooperative HEENT: Atraumatic, PERRLA, EOMI, Normocephalic Neck: Supple, No JVD, Negative Carotid Bruits Lungs: Clear to auscultation, Normal air movement Cardiovascular: Regular rate, No murmurs Abdomen: Bowel Sounds Present, Soft, Non Tender Extremities: No edema, Capillary Refill Less than 3 Seconds Skin: No rashes, No breakdown Musculoskeletal: No Tenderness to Palpation of Joints or Extremities Neurological: Cranial nerves II-XII grossly intact Psych/Mental Status: Normal Affect, Appropriate Vital Signs Temp Pulse Resp BP Pulse Ox 98.8 F 85 20 H 131/84 H 95 09/27/18 16:00 09/27/18 16:00 09/27/18 16:00 09/27/18 16:00 09/27/18 16:00 Oxygen Delivery Method Room Air Weight: 97.5 kg Body Mass Index (BMI) 39.3 Assessment/Plan All Active Problems Left knee pain (Acute) Debility (Acute) Left hip pain (Acute) 58 year old female with below past medical history hospitalized for left hip surgery 09/26/2018, admitted to TCU with debility, here for rehabilitation, strengthening, prior to discharge home with spouse. Debility - PT/OT. Pain - Tylenol 1000MG Q6H PRN mild pain, Oxycodone 10MG Q4H PRN moderate pain. Bowel - Miralax 17GM daily, Senna/colace 2 tablets BID, Dulcolax 10MG daily PRN, Mag Citrate 300ML PO x 1 dose. Pneumonia vaccination - Administer Prevnar 13 and/or Pneumovax 23 as necessary. DVT prophylaxis - Lovenox 40MG SC daily. Rheumatoid Arthritis - Abatacept 125MG SC QSunday, Plaquenil 200MG BID, MTX 0.75ML SC QSunday, Folic Acid 2MG daily. CV prophylaxis - Aspirin 325MG daily. Neuropathic pain - Gabapentin 1200MG TID. Anxiety - Hydroxyzine 75MG QID. Pruritus - Benadryl 25MG BID PRN. Osteoarthritis - Naproxen 500MG QAM. GERD - Pantoprazole 40MG BID. Depression - Paroxetine 10MG QHS. Muscle spasm - Tizanidine 4MG TID.
--- NOTE | 2018-09-27 18:01 | HP.PCM_ITS ---
Problem List (1) Debility Status: Acute (2) Morbid obesity Status: Chronic (3) Osteoarthritis Status: Chronic (4) Rheumatoid arthritis Status: Chronic (5) Neuropathic pain Status: Chronic (6) Insomnia Status: Chronic (7) GERD (gastroesophageal reflux disease) Status: Chronic (8) Depression Status: Chronic (9) Muscle spasm Status: Chronic (10) Left hip pain Status: Acute History of Present Illness Date of Admission: 09/27/18 Chief Complaint: Here for rehabilitation, strengthening, prior to discharge home with spouse. The patient is a 58 year old Female with below past medical history significant for both rheumatoid arthritis, osteoarthritis, underwent left hip arthroscope with debridement, gluteus medius repair, trochanteric bursectomy, IT band resection 09/26/2018, non-weight bearing left lower extremity, admitted to TCU with debility, here for rehabilitation, strengthening, prior to discharge home with spouse. Past Medical History Past Medical History (Chronic Problems): Chronic Problems Morbid obesity (Chronic) Osteoarthritis (Chronic) Rheumatoid arthritis (Chronic) Neuropathic pain (Chronic) Insomnia (Chronic) GERD (gastroesophageal reflux disease) (Chronic) Depression (Chronic) Muscle spasm (Chronic) Allergies adhesive Allergy (Verified 08/24/16 13:02) blisters codeine Adverse Reaction (Verified 08/23/16 14:17) Nausea Home Medications: Ambulatory Orders Medication Instructions Recorded Esomeprazole Mag Trihydrate 40 mg PO BID 02/04/13 [Nexium] Gabapentin [Neurontin] 1,200 mg PO TID 02/04/13 Hydroxychloroquine [Plaquenil] 200 mg PO BIDCM 02/04/13 Methotrexate 0.75 ml SQ HICKEY 02/04/13 Abatacept [Orencia] 125 mg SQ HICKEY 12/29/14 Paroxetine [Paxil] 10 mg PO QHS 12/29/14 HydrOXYzine [Atarax] 75 mg PO QHS 08/23/16 Oxycodone HCl/Acetaminophen 1 - 2 tablet PO Q6H PRN PRN 08/23/16 [Percocet 5/325] Aspirin 325 mg PO DAILY@0800 09/27/18 Naproxen [Naprosyn] 500 mg PO BREAKFAST 09/27/18 Tizanidine HCl [Zanaflex] 4 mg PO TID 09/27/18 Surgical History: - - C5-C6 removed, breast reduction 2009, spinal stimulator 2007, spine fusion atnerior lumbar interobody fusion RETIREMENT 2013 L3-S1, Right hip scope with gluteus medius and minimus repair debridement of calcific tendinitis allograft augmentation thickness trochanteric bursectomy iliotibial band repair 2016, spinal stimulator battery 2017, bilateral legs with bypass grafts 2011, 2012. 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 history Lives: Spouse/ Significant Other Smoking Status: Former smoker Tobacco Use: Cigarettes Alcohol: None Drugs: None - *Family History Maternal History Items: No pertinent history Paternal History Items: No pertinent history Review of Systems Constitutional: Denies: Chills, Fever, Weight Change HEENT: Denies: Head Aches, Sinus Congestion, Sinus Drainage Cardiovascular: Denies: Chest Pain, Palpitations Respiratory: Denies: Cough, Shortness of breath at rest, Sputum production Gastrointestinal: Denies: Abdominal Pain, Nausea, Vomiting Genitourinary: Denies: Dysuria Musculoskeletal: Denies: Joint Pain, Joint Tenderness Skin: Reports: Pruritis. Denies: Rash, Wounds Neurological: Denies: Numbness, Tingling, Focal weakness Psychiatric: Denies: Anxiety, Depression, Homicidal Ideations, Suicidal Ideations Hematologic/ Lymphatic: Denies: Easy Bruising, Easy Bleeding VTE Information - Inpt Only VTE Present on Admission: No VTE Mechan Device Prophylaxis: Knee High YUNIOR Hose VTE Pharm Prophylaxis ordered?: Yes Patient Problems: Active and Suspected Problems Left knee pain (Acute) Debility (Acute) Left hip pain (Acute) - Physical Exam General: Alert, Oriented x3, Cooperative HEENT: Atraumatic, PERRLA, EOMI, Normocephalic Neck: Supple, No JVD, Negative Carotid Bruits Lungs: Clear to auscultation, Normal air movement Cardiovascular: Regular rate, No murmurs Abdomen: Bowel Sounds Present, Soft, Non Tender Extremities: No edema, Capillary Refill Less than 3 Seconds Skin: No rashes, No breakdown Musculoskeletal: No Tenderness to Palpation of Joints or Extremities Neurological: Cranial nerves II-XII grossly intact Psych/Mental Status: Normal Affect, Appropriate Vital Signs Temp Pulse Resp BP Pulse Ox 98.8 F 85 20 H 131/84 H 95 09/27/18 16:00 09/27/18 16:00 09/27/18 16:00 09/27/18 16:00 09/27/18 16:00 Oxygen Delivery Method Room Air Weight: 97.5 kg Body Mass Index (BMI) 39.3 Assessment/Plan All Active Problems Left knee pain (Acute) Debility (Acute) Left hip pain (Acute) 58 year old female with below past medical history hospitalized for left hip surgery 09/26/2018, admitted to TCU with debility, here for rehabilitation, strengthening, prior to discharge home with spouse. * Debility - PT/OT. * Pain - Tylenol 1000MG Q6H PRN mild pain, Oxycodone 10MG Q4H PRN moderate pain. * Bowel - Miralax 17GM daily, Senna/colace 2 tablets BID, Dulcolax 10MG daily PRN, Mag Citrate 300ML PO x 1 dose. * Pneumonia vaccination - Administer Prevnar 13 and/or Pneumovax 23 as necessary. * DVT prophylaxis - Lovenox 40MG SC daily. * Rheumatoid Arthritis - Abatacept 125MG SC QSunday, Plaquenil 200MG BID, MTX 0.75ML SC QSunday, Folic Acid 2MG daily. * CV prophylaxis - Aspirin 325MG daily. * Neuropathic pain - Gabapentin 1200MG TID. * Anxiety - Hydroxyzine 75MG QID. * Pruritus - Benadryl 25MG BID PRN. * Osteoarthritis - Naproxen 500MG QAM. * GERD - Pantoprazole 40MG BID. * Depression - Paroxetine 10MG QHS. * Muscle spasm - Tizanidine 4MG TID.
[2018-09-27] MEDS: oxyCODONE 5 MG Tablet PO (18:14)
[2018-09-27] MEDS: PARoxetine 10 MG Tablet PO (21:06)
[2018-09-27] MEDS: hydrOXYzine PAM 25 MG Capsule 75 MG PO (21:06)
[2018-09-27] MEDS: Gabapentin 600 MG Tablet 1200 MG PO (21:07)
[2018-09-27] MEDS: Acetaminophen 500 MG Tablet 1000 MG PO (21:19)
[2018-09-28] MEDS: Pantoprazole Sodium 40 MG Tablet PO ×2 (06:05→17:53)
[2018-09-28] MEDS: tiZANidine HCl 2 MG Tablet 4 MG PO ×3 (06:05→21:15)
[2018-09-28] MEDS: Senna/Docusate Sodium 1 Tablet 2 TABLET PO ×2 (06:05→17:53)
[2018-09-28] MEDS: Polyethylene Glycol 3350 17 GM PACKET PO (06:05)
[2018-09-28] MEDS: Gabapentin 600 MG Tablet 1200 MG PO ×3 (06:05→21:15)
[2018-09-28] MEDS: hydrOXYzine PAM 25 MG Capsule 75 MG PO ×4 (06:06→23:56)
[2018-09-28] MEDS: Enoxaparin 40 MG/0.4 ML Syringe SC (06:07)
[2018-09-28] MEDS: Naproxen 500 MG Tablet PO (07:43)
[2018-09-28] MEDS: Hydroxychloroquine 200 MG Tablet PO ×2 (07:43→17:51)
[2018-09-28] MEDS: Folic Acid 1 MG Tablet 2 MG PO (07:44)
[2018-09-28] MEDS: Aspirin 325 MG Tablet PO (07:44)
[2018-09-28 07:53] LABS: Absolute Lymphocyte Count 2.05 X10^3/ul (0.83-4.51); Absolute Neutrophil Count 1.7 X10^3/uL (2.0-7.7); Basophil# 0.01 X10^3/uL; Basophil% 0.2 % (0-1); Eosinophil# 0.17 X10^3/uL; Eosinophils% 3.8 % (0-5); Hematocrit 34.1 % (37-47); Hemoglobin 10.4 g/dl (12.0-15.0); Lymphocyte # 2.05 X10^3/ul (4.0); Lymphocyte % 45.3 % (19-41); Mean Corp Hgb Conc 30.5 g/gl (32-36); Mean Corpuscular Hgb 26.1 pg (27.0-32.0); Mean Corpuscular Volume 85.5 fL (81-99); Mean Platelet Vol. 8.2 fl (6.2-12.0); Monocyte# 0.55 X10^3/uL; Monocyte% 12.1 % (0-10); Neutrophil # 1.74 X10^3/uL (2.7-7.7); Neutrophil % 38.4 % (47-70); POSITIVE COUNT NO; POSITIVE DIFFERENTIAL NO; POSITIVE MORPHOLOGY NO; Platelet Count 152 K/mm3 (150-450); RBC Distribution Width CV 14.2 % (11.6-14.6); RBC Distribution Width SD 44.6 fl (35.1-43.9); Red Blood Count 3.99 M/mm3 (4.2-5.4); White Blood Count 4.5 K/mm3 (4.4-11.0)
[2018-09-28 08:35] LABS: Anion Gap 5 (5-15); BUN 14 mg/dL (7-18); BUN/Creat Ratio 21.9 RATIO (10-20); Calcium,Total 8.2 mg/dL (8.5-10.1); Chloride 104 mmol/L (98-107); Creatinine, Serum 0.64 mg/dL (0.55-1.02); EST Glomerular Filtration Rate 102 mL/min (>60); Est Glom Filt Rate - Afr Amer 124 mL/min (>60); Estimated Creatinine Clearance 77.63 ml/min; Glucose 108 mg/dL (74-106); Potassium 3.7 mmol/L (3.5-5.1); Sodium Level 139 mmol/L (136-145)
[2018-09-28] MEDS: Tuberculin,Purif.prot.deriv. 50 TU/ML Vial 5 ML ID (10:06)
--- NOTE | 2018-09-28 10:13 | NURSING ---
DRESSING CHANGED TO LEFT HIP,MODERATE YELLOW DRAINAGE.
[2018-09-28] MEDS: oxyCODONE 5 MG Tablet 10 MG PO ×3 (13:29→23:56)
[2018-09-28 14:03] VITALS: BP 133/74; PULSE 78; RESP 16; TEMP 36.9; O2SAT 94
[2018-09-28] MEDS: Bisacodyl 5 MG Tablet 10 MG PO (17:56)
[2018-09-28] MEDS: PARoxetine 10 MG Tablet PO (21:15)
[2018-09-28] MEDS: DiphenhydrAMINE 25 MG Capsule PO (21:15)
[2018-09-28 21:17] VITALS: PULSE 88; RESP 16; O2SAT 97
[2018-09-29] MEDS: Gabapentin 600 MG Tablet 1200 MG PO ×3 (06:39→22:18)
[2018-09-29] MEDS: Pantoprazole Sodium 40 MG Tablet PO ×2 (06:39→16:51)
[2018-09-29] MEDS: tiZANidine HCl 2 MG Tablet 4 MG PO ×3 (06:39→22:18)
[2018-09-29] MEDS: Senna/Docusate Sodium 1 Tablet 2 TABLET PO (06:39)
[2018-09-29] MEDS: Polyethylene Glycol 3350 17 GM PACKET PO (06:40)
[2018-09-29] MEDS: hydrOXYzine PAM 25 MG Capsule 75 MG PO ×4 (06:41→22:18)
[2018-09-29] MEDS: Bisacodyl 5 MG Tablet 10 MG PO (06:42)
[2018-09-29] MEDS: Enoxaparin 40 MG/0.4 ML Syringe SC (06:43)
[2018-09-29] MEDS: Folic Acid 1 MG Tablet 2 MG PO (09:02)
[2018-09-29] MEDS: Aspirin 325 MG Tablet PO (09:02)
[2018-09-29] MEDS: Hydroxychloroquine 200 MG Tablet PO ×2 (09:03→16:51)
[2018-09-29] MEDS: Naproxen 500 MG Tablet PO (09:03)
[2018-09-29] MEDS: Magnesium Citrate 300 ML PO (09:21)
--- NOTE | 2018-09-29 09:25 | NURSING ---
Addendum entered by Jacque Berger 09/29/18 14:54: Pt had large results from Mag Citrate. Jaiden GARLAND updated. Original Note: Per pt and therapy, had large BM this AM. Mag Citrate ordered per Dr. Clemens. Pt stated she did not want medication unless she absolutely had to take it. Jaiden GARLAND notified and asked if pt would agree to drink half (150ml). Pt agreed and 150ml Mag Citrate given.
--- NOTE | 2018-09-29 10:36 | PCM.PN.RX ---
<Zach Edmondsonip D - Last Filed: 09/29/18 10:36> Progress Note - Pharmacy Subjective: TCU Admission Objective: Allergies adhesive Allergy (Verified 08/24/16 13:02) blisters codeine Adverse Reaction (Verified 08/23/16 14:17) Nausea Current Medications Generic Name Dose Route Start Last Admin Trade Name Freq PRN Reason Stop Dose Admin Acetaminophen 1,000 mg 09/27/18 18:14 09/27/18 21:19 Tylenol PO 1,000 mg Q6H PRN Administration MILD PAIN (1-3/10) Aspirin 325 mg 09/28/18 08:00 09/29/18 09:02 Aspirin PO 325 mg DAILY@0800 [facility] Administration Bisacodyl 10 mg 09/27/18 18:15 09/29/18 06:42 Dulcolax PO 10 mg DAILY PRN Administration Constipation Diphenhydramine HCl 25 mg 09/27/18 18:39 09/28/18 21:15 Benadryl PO 25 mg BID PRN PRN Administration breakthrough itching Enoxaparin Sodium 40 mg 09/28/18 06:00 09/29/18 06:43 Lovenox SC 40 mg DAILY@0600 BRIANA Administration Folic Acid 2 mg 09/28/18 08:00 09/29/18 09:02 Folic Acid PO 2 mg DAILY@0800 BRIANA Administration Gabapentin 1,200 mg 09/27/18 22:00 09/29/18 06:39 Neurontin PO 1,200 mg TID BRIANA Administration Hydroxychloroquine Sulfate 200 mg 09/27/18 17:00 09/29/18 09:03 Plaquenil PO 200 mg BIDCM BRIANA Administration Hydroxyzine Pamoate 75 mg 09/28/18 06:00 09/29/18 06:41 Vistaril Pamoate Capsule PO 75 mg 4X/DAY BRIANA Administration Naproxen 500 mg 09/28/18 08:00 09/29/18 09:03 Naprosyn PO 500 mg BREAKFAST BRIANA Administration Oxycodone HCl 10 mg 09/27/18 22:59 09/28/18 23:56 Oxyir PO 10 mg Q4H PRN PRN Administration MODERATE PAIN (4-5/10) Pantoprazole Sodium 40 mg 09/27/18 18:00 09/29/18 06:39 Protonix PO 40 mg BID BRIANA Administration Paroxetine HCl 10 mg 09/27/18 22:00 09/28/18 21:15 Paxil PO 10 mg QHS BRIANA Administration Polyethylene Glycol 17 gm 09/28/18 06:00 09/29/18 06:40 Miralax PO 17 gm DAILY BRIANA Administration Senna/Docusate Sodium 2 tablet 09/28/18 06:00 09/29/18 06:39 Senokot-S, Marion-Colace PO 2 tablet BID BRIANA Administration Tizanidine HCl 4 mg 09/27/18 14:00 09/29/18 06:39 Zanaflex PO 4 mg TID BRIANA Administration Tuberculin PPD 5 tu 10/05/18 10:00 Tubersol, Aplisol, Ppd ID 10/05/18 10:01 X1 ONE Problem List Left knee pain (Acute) Debility (Acute) Morbid obesity (Chronic) Osteoarthritis (Chronic) Rheumatoid arthritis (Chronic) Neuropathic pain (Chronic) Insomnia (Chronic) GERD (gastroesophageal reflux disease) (Chronic) Depression (Chronic) Muscle spasm (Chronic) Left hip pain (Acute) Vital Signs Temp Pulse Resp BP Pulse Ox 98.4 F 88 16 133/74 H 97 09/28/18 14:03 09/28/18 21:17 09/28/18 21:17 09/28/18 14:03 09/28/18 21:17 Oxygen Delivery Method Room Air Weight: 97.43 kg Body Mass Index (BMI) 39.3 Sodium 139 mmol/L (136-145) 09/28/18 07:35 Potassium 3.7 mmol/L (3.5-5.1) 09/28/18 07:35 Chloride 104 mmol/L (98-107) 09/28/18 07:35 Carbon Dioxide 30.0 mmol/L (21.0-32.0) 09/28/18 07:35 Anion Gap 5 (5-15) 09/28/18 07:35 BUN 14 mg/dL (7-18) 09/28/18 07:35 Creatinine 0.64 mg/dL (0.55-1.02) 09/28/18 07:35 Est GFR (MDRD) Af Amer 124 mL/min (>60) 09/28/18 07:35 Est GFR (MDRD) Non-Af 102 mL/min (>60) 09/28/18 07:35 BUN/Creatinine Ratio 21.9 RATIO (10-20) H 09/28/18 07:35 Glucose 108 mg/dL (74-106) H 09/28/18 07:35 Assessment/Plan: 1) Pain APAP for mild pain, hydroxychloroquine, naproxen, oxycodone for moderate pain, tizanidine, gabapentin. Continue to monitor prn medication use, daily pain scores. 2) CV PPx ASA. Continue to monitor for bleeding/clot. 3) DVT PPx Enoxaparin. Continue to monitor s/s bleeding/clot. 4) GI Pantoprazole. Continue to monitor s/s GI distress. Psychotropic Medications: 5) Depression/Anxiety Paroxetine, hydroxyzine. Continue to monitor s/s depression/anxiety. Unnecessary Medications: None Bowel Regimen: 6) Senna/s, PEG, prn bisacodyl. Continue to monitor prn medication use, for constipation/diarrhea. Date of Note:: 09/29/18 - Provider Comments Provider responsibility: Provider responsible to enter orders to implement recommendations <Beny Clemens Chi - Last Filed: 09/29/18 16:43> Progress Note - Pharmacy Subjective: [] Objective: Allergies adhesive Allergy (Verified 08/24/16 13:02) blisters codeine Adverse Reaction (Verified 08/23/16 14:17) Nausea Current Medications Generic Name Dose Route Start Last Admin Trade Name Freq PRN Reason Stop Dose Admin Acetaminophen 1,000 mg 09/27/18 18:14 09/27/18 21:19 Tylenol PO 1,000 mg Q6H PRN Administration MILD PAIN (1-3/10) Aspirin 325 mg 09/28/18 08:00 09/29/18 09:02 Aspirin PO 325 mg DAILY@0800 [facility] Administration Bisacodyl 10 mg 09/27/18 18:15 09/29/18 06:42 Dulcolax PO 10 mg DAILY PRN Administration Constipation Diphenhydramine HCl 25 mg 09/27/18 18:39 09/28/18 21:15 Benadryl PO 25 mg BID PRN PRN Administration breakthrough itching Enoxaparin Sodium 40 mg 09/28/18 06:00 09/29/18 06:43 Lovenox SC 40 mg DAILY@0600 [facility] Administration Folic Acid 2 mg 09/28/18 08:00 09/29/18 09:02 Folic Acid PO 2 mg DAILY@0800 BRIANA Administration Gabapentin 1,200 mg 09/27/18 22:00 09/29/18 13:29 Neurontin PO 1,200 mg TID BRIANA Administration Hydroxychloroquine Sulfate 200 mg 09/27/18 17:00 09/29/18 09:03 Plaquenil PO 200 mg BIDCM BRIANA Administration Hydroxyzine Pamoate 75 mg 09/28/18 06:00 09/29/18 12:01 Vistaril Pamoate Capsule PO 75 mg 4X/DAY BRIANA Administration Naproxen 500 mg 09/28/18 08:00 09/29/18 09:03 Naprosyn PO 500 mg BREAKFAST BRIANA Administration Oxycodone HCl 10 mg 09/27/18 22:59 09/28/18 23:56 Oxyir PO 10 mg Q4H PRN PRN Administration MODERATE PAIN (4-5/10) Pantoprazole Sodium 40 mg 09/27/18 18:00 09/29/18 06:39 Protonix PO 40 mg BID BRIANA Administration Paroxetine HCl 10 mg 09/27/18 22:00 09/28/18 21:15 Paxil PO 10 mg QHS BRIANA Administration Polyethylene Glycol 17 gm 09/28/18 06:00 09/29/18 06:40 Miralax PO 17 gm DAILY BRIANA Administration Senna/Docusate Sodium 2 tablet 09/28/18 06:00 09/29/18 06:39 Senokot-S, Marion-Colace PO 2 tablet BID BRIANA Administration Tizanidine HCl 4 mg 09/27/18 14:00 09/29/18 13:29 Zanaflex PO 4 mg TID BRIANA Administration Tuberculin PPD 5 tu 10/05/18 10:00 Tubersol, Aplisol, Ppd ID 10/05/18 10:01 X1 ONE Problem List Left knee pain (Acute) Debility (Acute) Morbid obesity (Chronic) Osteoarthritis (Chronic) Rheumatoid arthritis (Chronic) Neuropathic pain (Chronic) Insomnia (Chronic) GERD (gastroesophageal reflux disease) (Chronic) Depression (Chronic) Muscle spasm (Chronic) Left hip pain (Acute) Vital Signs Temp Pulse Resp BP Pulse Ox 98.8 F 86 18 149/79 H 97 09/29/18 16:00 09/29/18 16:00 09/29/18 16:00 09/29/18 16:00 09/29/18 16:00 Oxygen Delivery Method Room Air Weight: 97.43 kg Body Mass Index (BMI) 39.3 Sodium 139 mmol/L (136-145) 09/28/18 07:35 Potassium 3.7 mmol/L (3.5-5.1) 09/28/18 07:35 Chloride 104 mmol/L (98-107) 09/28/18 07:35 Carbon Dioxide 30.0 mmol/L (21.0-32.0) 09/28/18 07:35 Anion Gap 5 (5-15) 09/28/18 07:35 BUN 14 mg/dL (7-18) 09/28/18 07:35 Creatinine 0.64 mg/dL (0.55-1.02) 09/28/18 07:35 Est GFR (MDRD) Af Amer 124 mL/min (>60) 09/28/18 07:35 Est GFR (MDRD) Non-Af 102 mL/min (>60) 09/28/18 07:35 BUN/Creatinine Ratio 21.9 RATIO (10-20) H 09/28/18 07:35 Glucose 108 mg/dL (74-106) H 09/28/18 07:35 Assessment/Plan: Psychotropic Medications: Unnecessary Medications: Bowel Regimen: - Provider Comments Provider responsibility: Provider responsible to enter orders to implement recommendations Provider Comments to Recommendations by Pharmacy: Agree
--- NOTE | 2018-09-29 14:06 | CASEMGMT ---
Insurance: PT/OT Evaluations faxed to insurance. MAGALYS Avila
[2018-09-29 16:00] VITALS: BP 149/79; PULSE 86; RESP 18; TEMP 37.1; O2SAT 97
[2018-09-29] MEDS: oxyCODONE 5 MG Tablet 10 MG PO (18:47)
[2018-09-29 20:00] VITALS: PULSE 86; RESP 15; O2SAT 96
[2018-09-29] MEDS: PARoxetine 10 MG Tablet PO (22:20)
[2018-09-30] MEDS: oxyCODONE 5 MG Tablet 10 MG PO ×3 (02:51→22:15)
[2018-09-30] MEDS: hydrOXYzine PAM 25 MG Capsule 75 MG PO ×4 (06:04→21:18)
[2018-09-30] MEDS: tiZANidine HCl 2 MG Tablet 4 MG PO ×3 (06:04→21:17)
[2018-09-30] MEDS: Pantoprazole Sodium 40 MG Tablet PO ×2 (06:05→17:18)
[2018-09-30] MEDS: Gabapentin 600 MG Tablet 1200 MG PO ×3 (06:05→21:16)
[2018-09-30] MEDS: Enoxaparin 40 MG/0.4 ML Syringe SC (06:06)
[2018-09-30] MEDS: Folic Acid 1 MG Tablet 2 MG PO (07:49)
[2018-09-30] MEDS: Aspirin 325 MG Tablet PO (07:49)
[2018-09-30] MEDS: Naproxen 500 MG Tablet PO (07:49)
[2018-09-30] MEDS: Hydroxychloroquine 200 MG Tablet PO ×2 (07:50→17:17)
--- NOTE | 2018-09-30 14:00 | CASEMGMT ---
Insurance Continued stay appproved through 10/16 with update due 10/13. Auth#[id number] MAGALYS Avila
[2018-09-30 14:04] VITALS: PULSE 86; RESP 16; O2SAT 96
[2018-09-30 15:27] VITALS: BP 107/52; PULSE 85; RESP 18; O2SAT 97
--- NOTE | 2018-09-30 16:32 | CASEMGMT ---
Social Work Completed Advance Directives with patient. Original provided to patient and copy placed in chart. Nancie Briggs MSW CONDITIONING MACHINE OPERATOR
[2018-09-30] MEDS: Senna/Docusate Sodium 1 Tablet 2 TABLET PO (17:18)
--- NOTE | 2018-09-30 17:46 | NURSING ---
Minimal serosanguineous drainage noted to undergarmets from left hip/thigh incisions. No dressing noted to area. 2 ABD's applied and secured with tape. Jaiden GARLAND updated.
[2018-09-30] MEDS: PARoxetine 10 MG Tablet PO (21:16)
[2018-10-01] MEDS: Gabapentin 600 MG Tablet 1200 MG PO ×3 (06:40→22:14)
[2018-10-01] MEDS: tiZANidine HCl 2 MG Tablet 4 MG PO ×3 (06:41→22:16)
[2018-10-01] MEDS: hydrOXYzine PAM 25 MG Capsule 75 MG PO ×4 (06:41→22:14)
[2018-10-01] MEDS: Senna/Docusate Sodium 1 Tablet 2 TABLET PO ×2 (06:41→17:45)
[2018-10-01] MEDS: Enoxaparin 40 MG/0.4 ML Syringe SC (06:42)
[2018-10-01] MEDS: Pantoprazole Sodium 40 MG Tablet PO ×2 (06:42→17:44)
[2018-10-01] MEDS: Naproxen 500 MG Tablet PO (08:11)
[2018-10-01] MEDS: Hydroxychloroquine 200 MG Tablet PO ×2 (08:11→17:45)
[2018-10-01] MEDS: Folic Acid 1 MG Tablet 2 MG PO (08:12)
[2018-10-01] MEDS: Aspirin 325 MG Tablet PO (08:12)
[2018-10-01] MEDS: oxyCODONE 5 MG Tablet 10 MG PO ×2 (08:14→23:20)
[2018-10-01 09:50] VITALS: PULSE 90; RESP 18; O2SAT 92
--- NOTE | 2018-10-01 09:52 | CASEMGMT ---
Social Work IDT met with patient for care plan meeting. Discussed making progress in therapy. Still partial WBS. Insurance approved stay until 10/16 with an update on 10/13. Continued approval is to guaranteed. Patient understood. Discharge plans remain ongoing at this time. Will continue to follow. Nancie Briggs, PIPE LINE INSPECTOR WILDLAND FIREFIGHTER
[2018-10-01 15:20] VITALS: BP 111/70; PULSE 82; RESP 16; TEMP 37.1; O2SAT 91
[2018-10-01] MEDS: PARoxetine 10 MG Tablet PO (22:16)
[2018-10-02] MEDS: Pantoprazole Sodium 40 MG Tablet PO ×2 (06:24→17:57)
[2018-10-02] MEDS: tiZANidine HCl 2 MG Tablet 4 MG PO ×3 (06:24→22:12)
[2018-10-02] MEDS: Senna/Docusate Sodium 1 Tablet 2 TABLET PO ×2 (06:24→17:57)
[2018-10-02] MEDS: Enoxaparin 40 MG/0.4 ML Syringe SC (06:24)
[2018-10-02] MEDS: hydrOXYzine PAM 25 MG Capsule 75 MG PO ×4 (06:24→22:10)
[2018-10-02] MEDS: Gabapentin 600 MG Tablet 1200 MG PO ×3 (06:26→22:11)
[2018-10-02] MEDS: Hydroxychloroquine 200 MG Tablet PO ×2 (07:59→17:57)
[2018-10-02] MEDS: Folic Acid 1 MG Tablet 2 MG PO (07:59)
[2018-10-02] MEDS: Naproxen 500 MG Tablet PO (07:59)
[2018-10-02] MEDS: Aspirin 325 MG Tablet PO (08:00)
[2018-10-02 10:00] VITALS: PULSE 86; RESP 18; O2SAT 94
[2018-10-02] MEDS: oxyCODONE 5 MG Tablet 10 MG PO (12:06)
[2018-10-02 15:01] VITALS: BP 131/85; PULSE 94; RESP 18; TEMP 36.9; O2SAT 90
[2018-10-02] MEDS: Bisacodyl 5 MG Tablet 10 MG PO (17:56)
[2018-10-02] MEDS: PARoxetine 10 MG Tablet PO (22:13)
[2018-10-02] MEDS: Polyethylene Glycol 3350 17 GM PACKET PO (22:16)
[2018-10-03] MEDS: hydrOXYzine PAM 25 MG Capsule 75 MG PO ×4 (06:13→21:57)
[2018-10-03] MEDS: Pantoprazole Sodium 40 MG Tablet PO ×2 (06:14→17:25)
[2018-10-03] MEDS: Senna/Docusate Sodium 1 Tablet 2 TABLET PO ×2 (06:14→17:25)
[2018-10-03] MEDS: tiZANidine HCl 2 MG Tablet 4 MG PO ×3 (06:14→21:58)
[2018-10-03] MEDS: Gabapentin 600 MG Tablet 1200 MG PO ×3 (06:14→21:55)
[2018-10-03] MEDS: Enoxaparin 40 MG/0.4 ML Syringe SC (06:15)
[2018-10-03] MEDS: Naproxen 500 MG Tablet PO (08:42)
[2018-10-03] MEDS: Hydroxychloroquine 200 MG Tablet PO ×2 (08:42→17:25)
[2018-10-03] MEDS: Folic Acid 1 MG Tablet 2 MG PO (08:43)
[2018-10-03] MEDS: Aspirin 325 MG Tablet PO (08:43)
--- NOTE | 2018-10-03 09:53 | CASEMGMT ---
Social Work Patient requesting to discharge 10/04. Spoke with therapy and nursing whom are in agreement of discharge. Recommending no services upon discharge. Cut letter given. Spouse can transport patient home. Plan: home with s.o. with no services needed 10/04. Nancie Briggs, PLATEN DRIER OPERATOR PULPER TENDER
[2018-10-03] MEDS: oxyCODONE 5 MG Tablet 10 MG PO (09:56)
--- NOTE | 2018-10-03 12:05 | MDS.RN ---
Pain interview for veronica 10/04/18 completed.
--- NOTE | 2018-10-03 12:15 | CASEMGMT ---
BIMS and PHQ9 interviews completed on this date for MDS assessment. MAGALYS Avila
--- NOTE | 2018-10-03 14:22 | DCINST_ITS ---
- Discharge Diagnoses Current Active Problems: Current Active and Chronic Problems Left knee pain (Acute) Debility (Acute) Morbid obesity (Chronic) Osteoarthritis (Chronic) Rheumatoid arthritis (Chronic) Neuropathic pain (Chronic) Insomnia (Chronic) GERD (gastroesophageal reflux disease) (Chronic) Depression (Chronic) Muscle spasm (Chronic) Left hip pain (Acute) You will use the following diet at home:: No restrictions, Regular Your food should be the consistency of: Regular Your liquids should be the consistency of: Regular/Thin Discharge Activity: Return to Normal Activity, May Shower, Use Walker Weight Bearing Status: Weight bearing as tolerated Call your doctor if you observe: Fever of 101 or Higher, Inability to urinate, Inability to have a bowel movement, Shortness of breath, Chest pain, Uncontrolled pain Allergies/Adverse Reactions: Allergies adhesive Allergy (Verified 08/24/16 13:02) blisters codeine Adverse Reaction (Verified 08/23/16 14:17) Nausea Medications to take at Discharge Esomeprazole Mag Trihydrate [Nexium] 40 mg PO BID 02/04/13 Gabapentin [Neurontin] 1,200 mg PO TID 02/04/13 Hydroxychloroquine [Plaquenil] 200 mg PO BIDCM 02/04/13 Methotrexate 0.75 ml SQ HICKEY 02/04/13 Abatacept [Orencia] 125 mg SQ HICKEY 12/29/14 Paroxetine [Paxil] 10 mg PO QHS 12/29/14 HydrOXYzine [Atarax] 75 mg PO QHS 08/23/16 Aspirin 325 mg PO DAILY@0800 09/27/18 Naproxen [Naprosyn] 500 mg PO BREAKFAST 09/27/18 Tizanidine HCl [Zanaflex] 4 mg PO TID 09/27/18 Acetaminophen [Tylenol] 1,000 mg PO Q6H PRN tablet 10/03/18 DiphenhydrAMINE [Benadryl] 25 mg PO BID PRN PRN capsule 10/03/18 Folic Acid 2 mg PO DAILY@0800 tablet 10/03/18 Oxycodone [Oxyir] 10 mg PO Q4H PRN PRN 7 Days #60 tab 10/03/18 Polyethylene Glycol 3350 [Miralax] 17 gm PO DAILY packet 10/03/18 Senna/Docusate Sodium [Senokot-S] 2 tablet PO BID tablet 10/03/18 hydrOXYzine pamoate capsule [Vistaril pamoate capsule] 75 mg PO 4X/DAY capsule 10/03/18 The following prescriptions were given: Oxycodone [Oxyir] 10 mg PO Q4H PRN PRN 7 Days #60 tab PRN Reason: Moderate Pain (4-5/10) Primary Care Physician: Keren Bustamante MD [Primary Care Provider] - Please follow up with your Primary Care Physician in: 1 week. Test Results: Test results from this visit will be discussed in further detail at your follow- up appointment, if applicable. Please Follow Up With: Dr. Hogan When: 2 weeks. Proposed Discharge Date: 10/04/18
--- NOTE | 2018-10-03 14:22 | PCM.DC.SUM ---
Discharge Date and Diagnosis - Problem List Patient Problems: Active and Suspected Problems Left knee pain (Acute) Debility (Acute) Left hip pain (Acute) Date of Admission: 09/27/18 Date of Discharge: 10/04/18 - Primary Discharge Diagnosis Active and Suspected Problems Left knee pain (Acute) Debility (Acute) Left hip pain (Acute) - Secondary Discharge Diagnosis Chronic Problems Morbid obesity (Chronic) Osteoarthritis (Chronic) Rheumatoid arthritis (Chronic) Neuropathic pain (Chronic) Insomnia (Chronic) GERD (gastroesophageal reflux disease) (Chronic) Depression (Chronic) Muscle spasm (Chronic) Hospital Course and Treatment Imaging Results: 09/27/18 15:46 Diet: Regular Diet Diet Comments: 1600 calorie Operations: None Procedures: None Summary of Care Provided: The patient is a 58 year old Female with below past medical history hospitalized for left hip surgery 09/26/2018, admitted to TCU with debility, here for rehabilitation, strengthening, prior to discharge home with spouse. Discharge home with significant other, no further therapy recommended. Patient Problems: Active and Suspected Problems Left knee pain (Acute) Debility (Acute) Left hip pain (Acute) - Physical Exam Vital Signs Temp Pulse Resp BP Pulse Ox 98.4 F 94 18 131/85 H 90 10/02/18 15:01 10/02/18 15:01 10/02/18 15:01 10/02/18 15:01 10/02/18 15:01 Oxygen Delivery Method Room Air Weight: 96.36 kg Body Mass Index (BMI) 39.3 Intake and Output for Last 24 Hours 10/01/18 10/02/18 10/03/18 23:59 23:59 23:59 Intake Total 480 / 480 480 / 480 420 / 420 Balance 480 / 480 480 / 480 420 / 420 Discharge Diet: No Restrictions Discharge Activity: Return to Normal Activity, May Shower, Use Walker Weight Bearing Status: Weight bearing as tolerated Call your doctor if you observe: Fever of 101 or Higher, Inability to urinate, Inability to have a bowel movement, Shortness of breath, Chest pain, Uncontrolled pain Home Medications: Medications to take at Discharge Esomeprazole Mag Trihydrate [Nexium] 40 mg PO BID 02/04/13 Gabapentin [Neurontin] 1,200 mg PO TID 02/04/13 Hydroxychloroquine [Plaquenil] 200 mg PO BIDCM 02/04/13 Methotrexate 0.75 ml SQ HICKEY 02/04/13 Abatacept [Orencia] 125 mg SQ HICKEY 12/29/14 Paroxetine [Paxil] 10 mg PO QHS 12/29/14 HydrOXYzine [Atarax] 75 mg PO QHS 08/23/16 Aspirin 325 mg PO DAILY@0800 09/27/18 Naproxen [Naprosyn] 500 mg PO BREAKFAST 09/27/18 Tizanidine HCl [Zanaflex] 4 mg PO TID 09/27/18 Acetaminophen [Tylenol] 1,000 mg PO Q6H PRN tablet 10/03/18 DiphenhydrAMINE [Benadryl] 25 mg PO BID PRN PRN capsule 10/03/18 Folic Acid 2 mg PO DAILY@0800 tablet 10/03/18 Oxycodone [Oxyir] 10 mg PO Q4H PRN PRN 7 Days #60 tab 10/03/18 Polyethylene Glycol 3350 [Miralax] 17 gm PO DAILY packet 10/03/18 Senna/Docusate Sodium [Senokot-S] 2 tablet PO BID tablet 10/03/18 hydrOXYzine pamoate capsule [Vistaril pamoate capsule] 75 mg PO 4X/DAY capsule 10/03/18 Following Prescrptions Were Given to Patient: Oxycodone [Oxyir] 10 mg PO Q4H PRN PRN 7 Days #60 tab PRN Reason: Moderate Pain (4-5/10) Primary Care Physician: Keren Bustamante MD [Primary Care Provider] - Please follow up with your Primary Care Physician in: 1 week. Please Follow Up With: Dr. Hogan When: 2 weeks. Disposition: Home Minutes spent on discharge:: 30 Patient Condition:: Good Medical Necessity - Tobacco Use Smoking Status: Former smoker Tobacco Use: Cigarettes Meaningful Use Info Meaningful Use Diagnoses (Choose all that apply): None applicable
[2018-10-03 15:00] VITALS: BP 156/72; PULSE 95; RESP 18; TEMP 37.4; O2SAT 95
[2018-10-03 16:13] VITALS: PULSE 92; RESP 18; O2SAT 93
[2018-10-03] MEDS: PARoxetine 10 MG Tablet PO (21:56)
[2018-10-04] MEDS: Senna/Docusate Sodium 1 Tablet 2 TABLET PO (06:30)
[2018-10-04] MEDS: Gabapentin 600 MG Tablet 1200 MG PO (06:30)
[2018-10-04] MEDS: hydrOXYzine PAM 25 MG Capsule 75 MG PO (06:30)
[2018-10-04] MEDS: tiZANidine HCl 2 MG Tablet 4 MG PO (06:30)
[2018-10-04] MEDS: Pantoprazole Sodium 40 MG Tablet PO (06:30)
[2018-10-04] MEDS: Enoxaparin 40 MG/0.4 ML Syringe SC (06:31)
[2018-10-04] MEDS: Aspirin 325 MG Tablet PO (08:19)
[2018-10-04] MEDS: Hydroxychloroquine 200 MG Tablet PO (08:19)
[2018-10-04] MEDS: Naproxen 500 MG Tablet PO (08:19)
[2018-10-04] MEDS: Folic Acid 1 MG Tablet 2 MG PO (08:19)
[2018-10-04 08:51] VITALS: PULSE 72; RESP 18; O2SAT 98
[2018-10-04 10:43] VITALS: BP 137/76; PULSE 82; RESP 16; TEMP 36.9; O2SAT 97
--- NOTE | 2018-10-06 08:42 | CASEMGMT ---
insurance Insurance notified of pt d/c on 10/04/18. Auth# [id number] MAGALYS Avila
--- NOTE | 2018-10-09 13:35 | MDS.RN ---
Information for the mds was obtained from review of the clinical record, interview of resident, staff, and direct observation of resident's care.
== END 2018-10-04 10:44 | disposition home or self-care (01) | DRG 561 ==
PROVIDERS: Admitting Provider Family Medicine Geriatric Medicine; Family Provider Internal Medicine; PCP Internal Medicine; Visit Provider Family Medicine Geriatric Medicine
DX: Z47.89 Encounter for other orthopedic aftercare (principal); E66.01 Morbid (severe) obesity due to excess calories; Z68.38 Body mass index [BMI] 38.0-38.9, adult; Z71.3 Dietary counseling and surveillance; M06.9 Rheumatoid arthritis, unspecified; K21.9 Gastro-esophageal reflux disease without esophagitis; F32.9 Major depressive disorder, single episode, unspecified; M19.90 Unspecified osteoarthritis, unspecified site; Z87.891 Personal history of nicotine dependence; F41.9 Anxiety disorder, unspecified; M62.838 Other muscle spasm; L29.9 Pruritus, unspecified
CPT/HCPCS: 36415; 80048; 85025; 97110; 97116; 97162; 97165; 97530; 97535; 97802

== ENCOUNTER → 2019-01-30 09:41 | Outpatient (CLI) | payer MEDICARE, SELFPAY ==
[2018-09-27 15:20] VITALS: BMI 39.3
[2019-01-30 10:18] LABS: Absolute Lymphocyte Count 1.24 X10^3/uL (0.83-4.51); Absolute Neutrophil Count 1.6 X10^3/uL (2.0-7.7); Basophil# 0.03 X10^3/uL; Basophil% 0.8 % (0-1); Eosinophil# 0.15 X10^3/uL; Eosinophils% 4.2 % (0-5); Hematocrit 38.1 % (37-47); Hemoglobin 10.9 g/dL (12.0-15.0); Lymphocyte # 1.24 X10^3/ul (4.0); Lymphocyte % 34.9 % (19-41); Mean Corp Hgb Conc 28.6 g/dL (32-36); Mean Corpuscular Hgb 23.4 pg (27.0-32.0); Mean Corpuscular Volume 81.8 fL (81-99); Mean Platelet Vol. 8.5 fl (6.2-12.0); Monocyte# 0.52 X10^3/uL; Monocyte% 14.6 % (0-10); NRBC Flagged by Analyzer 0 % (0-5); Neutrophil % 45.2 % (47-70); Platelet Count 187 K/mm3 (150-450); RBC Distribution Width CV 17.3 % (11.6-14.6); RBC Distribution Width SD 50.7 fl (35.1-43.9); Red Blood Count 4.66 M/mm3 (4.2-5.4); White Blood Count 3.6 K/mm3 (4.4-11.0)
[2019-01-30 10:45] LABS: ALB/GLOB Ratio 1.1 RATIO (0.9-2.4); AST(SGOT) 19 U/L (15-37); Alanine Aminotransfer ALT/SGPT 23 U/L (13-56); Albumin, Serum 3.5 g/dL (3.2-5.0); Alkaline Phosphatase 103 U/L (45-117); Anion Gap 2 (5-15); BUN 17 mg/dL (7-18); BUN/Creat Ratio 26.2 RATIO (10-20); Calcium,Total 8.3 mg/dL (8.5-10.1); Chloride 106 mmol/L (98-107); Creatinine, Serum 0.65 mg/dL (0.55-1.02); EST Glomerular Filtration Rate 100 mL/min (>60); Est Glom Filt Rate - Afr Amer 122 mL/min (>60); Globulin 3.1 g/dL (2.2-4.2); Glucose 101 mg/dL (74-106); Potassium 4.3 mmol/L (3.5-5.1); Protein, Total 6.6 g/dL (6.4-8.2); Sodium Level 140 mmol/L (136-145)
== END ==
PROVIDERS: Family Provider Internal Medicine; PCP Internal Medicine; Referring Provider Internal Medicine Rheumatology; Visit Provider Internal Medicine Rheumatology
DX: M06.09 Rheumatoid arthritis without rheumatoid factor, multiple sites (principal); M79.7 Fibromyalgia; M18.0 Bilateral primary osteoarthritis of first carpometacarpal joints; M47.897 Other spondylosis, lumbosacral region; Z79.899 Other long term (current) drug therapy
CPT/HCPCS: 36415; 80053; 85025

== ENCOUNTER → 2019-03-13 13:04 | Outpatient (CLI) | payer MEDICARE, SELFPAY ==
[2018-09-27 15:20] VITALS: BMI 39.3
[2019-03-13 13:41] LABS: Absolute Lymphocyte Count 1.51 X10^3/uL (0.83-4.51); Absolute Neutrophil Count 1.7 X10^3/uL (2.0-7.7); Basophil# 0.02 X10^3/uL; Basophil% 0.5 % (0-1); Eosinophil# 0.14 X10^3/uL; Eosinophils% 3.6 % (0-5); Hematocrit 39.1 % (37-47); Hemoglobin 11.8 g/dL (12.0-15.0); Lymphocyte # 1.51 X10^3/ul (4.0); Lymphocyte % 38.6 % (19-41); Mean Corp Hgb Conc 30.2 g/dL (32-36); Mean Corpuscular Hgb 25.3 pg (27.0-32.0); Mean Corpuscular Volume 83.7 fL (81-99); Mean Platelet Vol. 8.5 fl (6.2-12.0); Monocyte# 0.49 X10^3/uL; Monocyte% 12.5 % (0-10); NRBC Flagged by Analyzer 0 % (0-5); Neutrophil # 1.73 X10^3/uL (2.7-7.7); Neutrophil % 44.3 % (47-70); Platelet Count 188 K/mm3 (150-450); RBC Distribution Width CV 17.3 % (11.6-14.6); RBC Distribution Width SD 52.7 fl (35.1-43.9); Red Blood Count 4.67 M/mm3 (4.2-5.4); White Blood Count 3.9 K/mm3 (4.4-11.0)
[2019-03-13 14:01] LABS: ALB/GLOB Ratio 1.1 RATIO (0.9-2.4); AST(SGOT) 22 U/L (15-37); Alanine Aminotransfer ALT/SGPT 30 U/L (13-56); Albumin, Serum 3.5 g/dL (3.2-5.0); Alkaline Phosphatase 93 U/L (45-117); Anion Gap 7 (5-15); BUN 16 mg/dL (7-18); BUN/Creat Ratio 28.2 RATIO (10-20); Calcium,Total 8.7 mg/dL (8.5-10.1); Chloride 105 mmol/L (98-107); Creatinine, Serum 0.57 mg/dL (0.55-1.02); EST Glomerular Filtration Rate 117 mL/min (>60); Est Glom Filt Rate - Afr Amer 141 mL/min (>60); Globulin 3.2 g/dL (2.2-4.2); Glucose 119 mg/dL (74-106); Protein, Total 6.7 g/dL (6.4-8.2); Sodium Level 141 mmol/L (136-145)
== END ==
PROVIDERS: Family Provider Internal Medicine; PCP Internal Medicine; Referring Provider Internal Medicine Rheumatology; Visit Provider Internal Medicine Rheumatology
DX: M06.09 Rheumatoid arthritis without rheumatoid factor, multiple sites (principal); M79.7 Fibromyalgia; M18.0 Bilateral primary osteoarthritis of first carpometacarpal joints; M47.897 Other spondylosis, lumbosacral region; Z79.899 Other long term (current) drug therapy
CPT/HCPCS: 36415; 80053; 85025

== ENCOUNTER → 2019-06-10 13:21 | Outpatient (CLI) | payer MEDICARE, SELFPAY ==
[2018-09-27 15:20] VITALS: BMI 39.3
[2019-06-10 14:11] LABS: Absolute Lymphocyte Count 2.86 X10^3/uL (0.83-4.51); Absolute Neutrophil Count 2.8 X10^3/uL (2.0-7.7); Basophil# 0.02 X10^3/uL; Basophil% 0.3 % (0-1); Eosinophil# 0.15 X10^3/uL; Eosinophils% 2.2 % (0-5); Hemoglobin 12.3 g/dL (12.0-15.0); Lymphocyte # 2.86 X10^3/ul (4.0); Lymphocyte % 42.3 % (19-41); Mean Corp Hgb Conc 31.5 g/dL (32-36); Mean Corpuscular Hgb 28.1 pg (27.0-32.0); Mean Platelet Vol. 8.3 fl (6.2-12.0); Monocyte# 0.94 X10^3/uL; Monocyte% 13.9 % (0-10); NRBC Flagged by Analyzer 0 % (0-5); Neutrophil # 2.77 X10^3/uL (2.7-7.7); Platelet Count 262 K/mm3 (150-450); RBC Distribution Width CV 14.7 % (11.6-14.6); RBC Distribution Width SD 47.9 fl (35.1-43.9); Red Blood Count 4.38 M/mm3 (4.2-5.4); White Blood Count 6.8 K/mm3 (4.4-11.0)
[2019-06-10 14:41] LABS: ALB/GLOB Ratio 1.1 RATIO (0.9-2.4); AST(SGOT) 16 U/L (15-37); Alanine Aminotransfer ALT/SGPT 36 U/L (13-56); Albumin, Serum 3.6 g/dL (3.2-5.0); Alkaline Phosphatase 103 U/L (45-117); Anion Gap 5 (5-15); BUN 18 mg/dL (7-18); BUN/Creat Ratio 27.1 RATIO (10-20); Calcium,Total 8.9 mg/dL (8.5-10.1); Chloride 105 mmol/L (98-107); Creatinine, Serum 0.66 mg/dL (0.55-1.02); EST Glomerular Filtration Rate 98 mL/min (>60); Est Glom Filt Rate - Afr Amer 118 mL/min (>60); Globulin 3.3 g/dL (2.2-4.2); Glucose 90 mg/dL (74-106); Protein, Total 6.9 g/dL (6.4-8.2); Sodium Level 139 mmol/L (136-145)
== END ==
PROVIDERS: PCP Internal Medicine; Referring Provider Internal Medicine Rheumatology; Visit Provider Internal Medicine Rheumatology
DX: M06.09 Rheumatoid arthritis without rheumatoid factor, multiple sites (principal); Z79.899 Other long term (current) drug therapy; M79.7 Fibromyalgia; M18.0 Bilateral primary osteoarthritis of first carpometacarpal joints; M15.9 Polyosteoarthritis, unspecified; M47.897 Other spondylosis, lumbosacral region; I87.2 Venous insufficiency (chronic) (peripheral)
CPT/HCPCS: 36415; 80053; 85025

== ENCOUNTER → 2019-08-18 14:19 | Outpatient (CLI) | payer MEDICARE, SELFPAY ==
[2018-09-27 15:20] VITALS: BMI 39.3
[2019-08-18 17:32] LABS: Basophil# 0.02 X10^3/uL; Basophil% 0.5 % (0-1); Eosinophil# 0.14 X10^3/uL; Eosinophils% 3.2 % (0-5); Hematocrit 40.9 % (37-47); Hemoglobin 12.8 g/dL (12.0-15.0); Lymphocyte % 36.7 % (19-41); Mean Corp Hgb Conc 31.3 g/dL (32-36); Mean Corpuscular Hgb 29.9 pg (27.0-32.0); Mean Corpuscular Volume 95.6 fL (81-99); Mean Platelet Vol. 8.7 fl (6.2-12.0); Monocyte# 0.59 X10^3/uL; Monocyte% 13.5 % (0-10); NRBC Flagged by Analyzer 0 % (0-5); Neutrophil # 1.99 X10^3/uL (2.7-7.7); Neutrophil % 45.6 % (47-70); Platelet Count 206 K/mm3 (150-450); RBC Distribution Width CV 13.7 % (11.6-14.6); Red Blood Count 4.28 M/mm3 (4.2-5.4); White Blood Count 4.4 K/mm3 (4.4-11.0)
[2019-08-18 18:08] LABS: AST(SGOT) 28 U/L (15-37); Alanine Aminotransfer ALT/SGPT 45 U/L (13-56); Albumin, Serum 3.4 g/dL (3.2-5.0); Alkaline Phosphatase 109 U/L (45-117); Anion Gap 6 (5-15); BUN 21 mg/dL (7-18); BUN/Creat Ratio 33.7 RATIO (10-20); Calcium,Total 8.9 mg/dL (8.5-10.1); Chloride 102 mmol/L (98-107); Creatinine, Serum 0.62 mg/dL (0.55-1.02); EST Glomerular Filtration Rate 105 mL/min (>60); Est Glom Filt Rate - Afr Amer 127 mL/min (>60); Globulin 3.4 g/dL (2.2-4.2); Glucose 99 mg/dL (74-106); Potassium 3.8 mmol/L (3.5-5.1); Protein, Total 6.8 g/dL (6.4-8.2); Sodium Level 139 mmol/L (136-145)
== END ==
PROVIDERS: PCP Internal Medicine; Referring Provider Internal Medicine Rheumatology; Visit Provider Internal Medicine Rheumatology
DX: M06.09 Rheumatoid arthritis without rheumatoid factor, multiple sites (principal); M79.7 Fibromyalgia; M18.0 Bilateral primary osteoarthritis of first carpometacarpal joints; M47.897 Other spondylosis, lumbosacral region; I87.2 Venous insufficiency (chronic) (peripheral); Z79.899 Other long term (current) drug therapy
CPT/HCPCS: 36415; 80053; 85025

== ENCOUNTER → 2019-11-11 14:21 | Outpatient (CLI) | payer MEDICARE, SELFPAY ==
[2018-09-27 15:20] VITALS: BMI 39.3
[2019-11-11 18:02] LABS: Absolute Lymphocyte Count 1.97 X10^3/uL (0.83-4.51); Absolute Neutrophil Count 2.3 X10^3/uL (2.0-7.7); Basophil# 0.02 X10^3/uL; Basophil% 0.4 % (0-1); Eosinophil# 0.23 X10^3/uL; Eosinophils% 4.4 % (0-5); Hematocrit 41.8 % (37-47); Hemoglobin 12.8 g/dL (12.0-15.0); Lymphocyte # 1.97 X10^3/ul (4.0); Mean Corp Hgb Conc 30.6 g/dL (32-36); Mean Corpuscular Hgb 29.4 pg (27.0-32.0); Mean Corpuscular Volume 96.1 fL (81-99); Mean Platelet Vol. 8.7 fl (6.2-12.0); Monocyte% 11.6 % (0-10); NRBC Flagged by Analyzer 0 % (0-5); Neutrophil # 2.34 X10^3/uL (2.7-7.7); Neutrophil % 45.2 % (47-70); Platelet Count 234 K/mm3 (150-450); RBC Distribution Width CV 11.9 % (11.6-14.6); RBC Distribution Width SD 41.1 fl (35.1-43.9); Red Blood Count 4.35 M/mm3 (4.2-5.4); White Blood Count 5.2 K/mm3 (4.4-11.0)
[2019-11-11 18:25] LABS: ALB/GLOB Ratio 1.1 RATIO (0.9-2.4); AST(SGOT) 23 U/L (15-37); Alanine Aminotransfer ALT/SGPT 34 U/L (13-56); Albumin, Serum 3.7 g/dL (3.2-5.0); Alkaline Phosphatase 108 U/L (45-117); Anion Gap 5 (5-15); BUN 23 mg/dL (7-18); BUN/Creat Ratio 29.2 RATIO (10-20); Calcium,Total 8.8 mg/dL (8.5-10.1); Chloride 104 mmol/L (98-107); Creatinine, Serum 0.79 mg/dL (0.55-1.02); EST Glomerular Filtration Rate 80 mL/min (>60); Est Glom Filt Rate - Afr Amer 97 mL/min (>60); Globulin 3.4 g/dL (2.2-4.2); Glucose 125 mg/dL (74-106); Potassium 3.9 mmol/L (3.5-5.1); Protein, Total 7.1 g/dL (6.4-8.2); Sodium Level 139 mmol/L (136-145)
== END ==
PROVIDERS: PCP Internal Medicine; Referring Provider Internal Medicine Rheumatology; Visit Provider Internal Medicine Rheumatology
DX: M06.09 Rheumatoid arthritis without rheumatoid factor, multiple sites (principal); M79.7 Fibromyalgia; M15.9 Polyosteoarthritis, unspecified; M47.897 Other spondylosis, lumbosacral region; I87.2 Venous insufficiency (chronic) (peripheral); Z79.899 Other long term (current) drug therapy
CPT/HCPCS: 36415; 80053; 85025

== ENCOUNTER → 2020-02-22 10:12 | Outpatient (CLI) | payer MEDICARE, SELFPAY ==
[2018-09-27 15:20] VITALS: BMI 39.3
--- NOTE | 2020-02-22 10:24 | RAD_ITS ---
CLINICAL HISTORY: Female, 59 years old. Chronic left shoulder pain. PROCEDURE: ARTHROGRAM - LEFT SHOULDER CONSENT: The procedure as well as the benefits and possible complications including infection and bleeding were explained to the patient. Informed consent was obtained. FLUOROSCOPY TIME (if supplied): (54 seconds) minutes/seconds Injection Information: 10 cc of dilute Dotarem Number of images obtained: 5 TECHNIQUE: (All elements of maximal sterile barrier technique followed, including US elements as applicable) The patient was in the supine position. The overlying skin was prepped and draped in the usual sterile fashion. Following local anesthetic application and under direct fluoroscopic guidance, a 22-gauge spinal needle was placed into the left shoulder joint. Following this, 10 cc of dilute MRI contrast was injected. The patient tolerated the procedure well. CT scan will follow. RAD/Arthrogram Shoulder IMPRESSION: Successful left shoulder arthrogram. Electronically Signed: Rudy Monroy, at 12:27 EDT , Service support ,
--- NOTE | 2020-02-22 10:50 | CT_ITS ---
STUDY: CT LEFT SHOULDER REASON FOR EXAM: Female, 59 years old. LEFT SHOULDER ARTHROGRAM RADIATION DOSAGE (If Supplied By Facility): CTDIvol = ( 40.19 ) mGy, DLP = ( 976.68 ) mGycm TECHNIQUE: The patient was scanned in a multi detector CT scanner. High resolution transaxial imaging was performed without the administration of intravenous contrast material. Sagittal and coronal images were reconstructed. 10 ccs of dilute MRI contrast was injected into the shoulder joint. Individualized dose optimization techniques were used for this CT. COMPARISON: Comparison is made with prior shoulder arthrogram done earlier in the day. FINDINGS: There is moderate osteoarthritis, with moderate articular joint space narrowing and moderate osteoarthritic spurring. Normal glenoid rim, neck and visualized scapula. Normal humeral head, neck and tuberosities. Normal coracoid process. Normal visualized lateral clavicle. Normal acromioclavicular articulation. There is a Type II morphology (curved), with a neutral orientation. Normal visualized muscles and soft tissue structures. CT/Extremity Upper WITH Contrast IMPRESSION: Moderate degree of osteoarthritis involving the glenohumeral joint. Electronically Signed: Rudy Monroy, at 14:21 EDT , Service support ,
== END ==
PROVIDERS: PCP Internal Medicine; Referring Provider Orthopaedic Surgery; Visit Provider Orthopaedic Surgery
DX: M19.012 Primary osteoarthritis, left shoulder (principal); G89.29 Other chronic pain
CPT/HCPCS: 23350; 73040; 73201; A9575; Q9967

== ENCOUNTER → 2020-05-06 12:47 | Outpatient (CLI) | payer MEDICARE, SELFPAY ==
[2020-02-02 14:01] VITALS: BMI 39.3
[2020-05-06 13:02] VITALS: BP 133/77; PULSE 88; RESP 14; TEMP 36.7; O2SAT 95; BMI 38.4
--- NOTE | 2020-05-06 13:10 | RAD_ITS ---
PROCEDURE: LUMBAR MYELOGRAM DATE OF EXAMINATION: 05/06/2020. INDICATION: Female, 59 years old. Low back pain. PHYSICIAN: Rudy Monroy M.D. CONSENT: The patient''s history and physical findings were reviewed. The lumbar myelogram procedure was discussed with the patient prior to signing a consent. SEDATION: Local anesthesia with 3 mL of 1% lidocaine was used. FLUOROSCOPY TIME (if supplied): (3:08) minutes/seconds Injection Information: 15 cc of ISOVUE-M 200. Number of images obtained: 4 TECHNIQUE: Digital fluoroscopy was used to identify a safe approach for the lumbar myelogram. The back was prepped and draped in usual fashion. Local anesthesia was utilized. Under fluoroscopic guidance a 22-gauge spinal needle was inserted into the spinal canal at the L4-5 level. Clear spinal fluid was seen. 15 mL of Isovue 200 M was injected into the spinal canal. There is good opacification of the spinal fluid. The nerve root sheaths are asymmetrically identified. There is evidence of a spinal stenosis at the L3-L4 level. Prior laminectomy and fusion at the L4-L5 and L5-S1 levels. RAD/Lumbar Myelogram IMPRESSION: Lumbar Myelogram . Spinal stenosis at the L3 -- L4 level. A CT scan will follow. The patient tolerated the procedure well. Electronically Signed: Rudy Monroy, at 14:18 EST , Service support ,
--- NOTE | 2020-05-06 14:00 | CT_ITS ---
STUDY: CT LUMBAR SPINE WITH INTRATHECAL CONTRAST (LUMBAR CT MYELOGRAM) REASON FOR EXAM: Female, 59 years old. LUMBAR MYELOGRAM, SPINAL STENOSIS, PRIOR BACK SURG W/ STIMULATOR RADIATION DOSAGE (If Supplied By Facility): CTDIvol = ( 28.05 ) mGy, DLP = ( 1039.77 ) mGycm TECHNIQUE: Transaxial images were obtained from the T12 vertebra through the S1 vertebrae, following intrathecal administration of 15 ml of ISOVUE M200 contrast material, performed by Dr. Monroy. Please refer to this physicians technical notes for procedural details. Coronal and sagittal reconstructions were obtained. Individualized dose optimization techniques were used for this CT. COMPARISON: Comparison is made with prior examination of 12/29/2014. FINDINGS: Normal lumbar lordosis. There is no substantial scoliosis. A pain stimulator device is in situ. Normal vertebrae of the lumbar spine. There is dependent layering of contrast material in the distal thecal sac. The conus medullaris terminates in a normal position at the T12-L1 level. There is no demonstrated cauda equina nerve root abnormality or intraspinal mass. L1-2: Normal endplates. Normal disc height and morphology. Normal bilateral facet joints. Normal central canal and bilateral lateral recesses. Normal bilateral intervertebral neural foramina. L2-3: Minimal degree of diffuse posterior disc bulge. Facet joint hypertrophy. No significant stenosis is seen. L3-4: Moderate degree of disc space narrowing and disc degeneration. There is a moderate degree of central canal stenosis due to hypertrophy of the ligamenta flava as well as the mild degree of diffuse posterior disc bulge. L4-5: The patient is status post anterior and posterior fusion. No evidence of spinal stenosis. No static disc is seen. L5-S1: Status post laminectomy and fusion. No evidence of spinal stenosis. Normal visualized sacroiliac joints. Normal visualized paraspinous soft tissue structures. CT/Spine Lumbar WITH Contrast IMPRESSION: Moderate degree of central canal stenosis at the L3-L4 level. Status post fusion at the L4-L5 and L5-S1 levels. Electronically Signed: Rudy Monroy, at 15:12 EST , Service support ,
[2020-05-06 14:50] VITALS: BP 126/68; PULSE 73; RESP 14; O2SAT 98
== END ==
PROVIDERS: PCP Internal Medicine; Visit Provider Orthopaedic Surgery
DX: M47.26 Other spondylosis with radiculopathy, lumbar region (principal); M48.07 Spinal stenosis, lumbosacral region; M19.012 Primary osteoarthritis, left shoulder
CPT/HCPCS: 62304; 72132; Q9965

== ENCOUNTER 2020-08-18 11:51 | Outpatient (RCR) | payer MEDICARE, SELFPAY ==
[2020-05-06 13:02] VITALS: BMI 38.4
== END 2020-10-04 23:59 ==
LOC: IMMUN 11:51
PROVIDERS: PCP Internal Medicine; Referring Provider Family Medicine; Visit Provider Family Medicine
DX: Z23 Encounter for immunization (principal)
CPT/HCPCS: 0001A; 0002A; 91300

== ENCOUNTER 2020-12-14 17:59 | Inpatient (IN) | payer MEDICARE, SELFPAY ==
[2020-12-14] VITALS (10 sets, daily range): BP systolic 120–195; BP diastolic 84–136; PULSE 100–113; RESP 15–29; TEMP 36.7; O2SAT 82–99; BMI 45.7; BMI 35.8
--- NOTE | 2020-12-14 20:03 | CT_ITS ---
STUDY: CT ABDOMEN AND PELVIS WITH CONTRAST REASON FOR EXAM: Female, 60 years old. upper abd pain, n/v RADIATION DOSAGE (If Supplied By Facility): CTDIvol = ( 22.32 ) mGy, DLP = ( 1620.96 ) mGycm TECHNIQUE: Transaxial images were obtained from the dome of the diaphragm to the symphysis pubis without oral contrast. IV 100mL Isovue-370 was administered. Sagittal and coronal images were reconstructed. Individualized dose optimization techniques were used for this CT. COMPARISON: CT of the lumbar spine dated May 06, 2020 FINDINGS: Mild groundglass edema is seen in the visualized lung sotelo. Minimal linear atelectasis seen in the right lower lobe. There is decreased attenuation of the liver consistent with steatosis. Normal gallbladder and extrahepatic biliary system. Normal spleen. Normal pancreas. Normal bilateral adrenal glands. Normal right kidney. Normal left kidney. There is a small hiatal hernia. Mild fluid and gaseous distention of the mid jejunal and proximal ileal loops compatible with either focal enteritis or focal ileus. No zone of transition or obstruction is visualized. Normal remaining small bowel loops. Normal colon. The appendix is visualized and appears normal. Normal abdominal aorta. Normal inferior vena cava. Normal retroperitoneum. Normal urinary bladder. Small calcified nodule seen in the mesentery of the right upper quadrant. Grossly unremarkable uterus and adnexa. Normal abdominal wall. There are diffuse degenerative changes of the visualized lumbar spine. Spinal stimulating catheter in electronic device reidentified. Stable lower lumbar spine hardware and chronic related changes. Small fat-containing bilateral inguinal hernias reidentified. CT/Abdomen/Pelvis W IV Cont ONLY IMPRESSION: 1. Mild fluid and gaseous distention of the mid jejunal and proximal ileal loops compatible with either focal enteritis or focal ileus. No zone of transition or obstruction is visualized. Normal remaining small bowel loops. Electronically Signed: Abdiaziz Hendricks MD at 21:49 EDT , Service support ,
--- NOTE | 2020-12-14 20:04 | EKG12_ITS ---
Test Reason : PAIN-OTHER Blood Pressure : / mmHG Vent. Rate : 106 BPM Atrial Rate : 106 BPM P-R Int : 140 ms QRS Dur : 068 ms QT Int : 358 ms P-R-T Axes : 057 072 035 degrees QTc Int : 475 ms AGE AND GENDER SPECIFIC ECG ANALYSIS Suspect unspecified pacemaker failure Sinus tachycardia Abnormal ECG Confirmed by JOANNE WOLFE, ARABELLA ([id number]), acquisitions editor SHIREEN HORTON ([id number]) on 12/19/2020 9:08:35 AM Referred By: Johnie Mckinnon Confirmed By:ARABELLA RUBIO MD
--- NOTE | 2020-12-14 20:05 | ED.VIS.GI ---
HPI HPI - GI History of Present Illness Chief Complaint: Other, Pain/Inj Informant: patient and EMS Abdominal Pain/Flank Pain Onset: Today Context: Gradual Onset Timing: Continuous and Waxes and wanes Quality: Aching Location: Epigastric (And lower central chest, radiating straight through to the back) Current Severity: Severe Maximum Severity: Severe Worsened by: Nothing Relieved by: Nothing Nausea/Vomiting/Emesis GI Symptom: Positive for Nausea and Vomiting Diarrhea/Melena/Hematochezia GI Symptom: Positive for - (Was constipated, now having bowel movements off and on today, the last one being loose diarrhea nonbloody) Stool Quality: Negative for Black, Maroon and BRB per rectum Associated Symptoms Associated Symptoms: Negative for Dysuria, Frequency and Hematuria Narrative Narrative: Patient with epigastric and lower central chest discomfort radiated straight through to the back that started today and became much worse. She is on chronic pain medication for both leg/hip pain, that is no different right now but she did not take her medications tonight. She states she kept sweating and feeling cold chills off and on when she had all of this pain and nausea, correlating with the severity of the pain. Never had pancreatitis before. Has not had her gallbladder out. She rarely uses alcohol and has not used any recently. [facility] Medical History Arthritis Chronic pain Debility Depression GERD (gastroesophageal reflux disease) Injury of fifth cervical spinal cord Insomnia Morbid obesity Neuropathic pain Rheumatoid arthritis Spinal cord stimulator status Home Medications esomeprazole magnesium 40 mg PO BID 05/06/20 [History Last Taken Unknown] hydroxyzine HCl 25 - 50 mg PO Q8H PRN PRN 05/06/20 [History Last Taken Unknown] morphine 15 mg PO Q12H 05/06/20 [History Last Taken Unknown] oxybutynin chloride 10 mg PO DAILY 05/06/20 [History Last Taken Unknown] oxycodone-acetaminophen 1 ea PO TID 05/06/20 [History Last Taken Unknown] paroxetine HCl 30 mg PO DAILY 05/06/20 [History Last Taken Unknown] prednisone 5 mg PO PRN 05/06/20 [History Last Taken Unknown] cholecalciferol (vitamin D3) [Vitamin D3] 2,000 unit PO DAILY 12/14/20 [History Last Taken Unknown] folic acid-vit B6-vit B12 [Folbee] 1 tab PO DAILY 12/14/20 [History Last Taken Unknown] metformin 500 mg PO DAILY 12/14/20 [History Last Taken Unknown] methocarbamol 750 mg PO TID 12/14/20 [History Last Taken Unknown] tizanidine 4 mg PO Q6H PRN PRN 12/14/20 [History Last Taken Unknown] Allergy/AdvReac Type Severity Reaction Status Date / Time adhesive Allergy blisters Verified 08/24/16 13:02 codeine AdvReac Nausea Verified 08/23/16 14:17 Family History (Updated 12/14/20 @ 21:[address] Jay Plascencia MD) Other Heart disease Surgical History Previous back surgery Social History Smoking Status: Former smoker ROS ROS ED Constitutional Constitutional ED: Reports chills and sweats; Denies fever(s) Eyes Eyes: Denies change in vision or diplopia ENT ENT ED: Denies rhinorrhea or sore throat Cardiovascular Cardiovascular: Reports chest pain; Denies palpitations Respiratory/Chest Respiratory/Chest: Denies cough or dyspnea Gastrointestinal Gastrointestinal: Reports as per HPI, abdominal pain, constipation, diarrhea, nausea and vomiting Genitourinary Genitourinary ED: Denies dysuria or hematuria Musculoskeletal Musculoskeletal: Reports as per HPI, back pain and extremity pain; Denies neck pain Integumentary Denies abscess or rash Neurologic Neurologic: Denies headache(s), paresthesias or weakness Psychiatric Psychiatric: Denies anxiety or suicidal thoughts EXAM Physical Exam Const Vital Signs: 12/14/20 18:00 12/14/20 20:20 Temperature 98.0 F Temperature Source Axillary Pulse Rate 100 105 H Respiratory Rate 29 H 17 Blood Pressure 195/136 H 127/96 H Blood Pressure Mean 155 106 Pulse Ox 99 94 Oxygen Delivery Method Room Air Room Air Positive well nourished and well developed Constitutional Narrative: Morbidly obese. Intermittently in painful distress screaming out. Other times conversational without distress or difficulty. General Appearance ED: well developed HEENT Reports moist mucous membranes normocephalic and atraumatic Eyes PERRL and EOMs intact bilaterally Neck full ROM and supple Resp normal respiratory effort and clear to auscultation bilaterally Cardio regular rate, regular rhythm and no murmurs GI non-distended GI Narrative: Very tender in epigastrium. No other areas of abdominal tenderness including her right upper quadrant. Negative Portillo's. Auscultation: normoactive bowel sounds Palpation: soft Back/Spine no CVA tenderness, normal to inspection and thoraco-lumbar ROM normal Back/Spine Narrative: Patient indicates pain is in her mid thoracic back opposite her epigastrium. No specific areas of tenderness, normal inspection. General Back: other FROM Extremity normal to inspection General Extremety ED: Negative for edema, pulses abnormal or tenderness General Extremity: Negative for edema or pulses abnormal Neuro oriented x3, CN's II-XII intact bilaterally and no sensory deficits noted Sensorium / Orientation: awake and alert Motor Exam: strength 5/5 throughout Skin no rashes or lesions noted and no wounds MDM MDM MDM Narrative Medical decision making narrative: There was concern about possible upper abdominal etiologies including AAA, as well as aortic dissection. I held off on ordering CTA of the chest until I saw the patient's EKG, which was set on my desk without notification, I saw it 17 minutes after was performed, I was concerned it may indicate STEMI, however the lateral elevations were less than 1 mm, but the voltage was extremely low, and there is 1-[address] depressions inferiorly in the precordial leads look pretty good. Given this, and the possibility of a dissection, I immediately sent the EKG to the temporary office assistant Dr. Mckinnon and discussed with him, he agreed ruling out dissection first, the patient was had CT at the time so we added on the CTA of the chest, which shows no dissection, so cardiology is taking her emergently to the [facility]. As a STEMI. Her troponin subsequently returned high as below confirming this likelihood. Hospitalist was also consulted and added heparin and aspirin orders for the patient to get here in the emergency department. Lab Data Attestation: I reviewed the patient's lab results. Labs: Laboratory Results - last 24 hr 12/14/20 12/14/20 12/14/20 18:51 18:51 19:24 WBC 8.5 RBC 5.05 Hgb 13.8 Hct 43.3 MCV 85.7 MCH 27.3 MCHC 31.9 L RDW Std Deviation 49.7 H RDW Coeff of Valdem[place] 16.1 H Plt Count 284 MPV 9.0 Immature Gran % (Auto) 0.700 Neut % (Auto) 75.8 H Lymph % (Auto) 14.2 L [place] % (Auto) 8.9 Eos % (Auto) 0.2 Baso % (Auto) 0.2 Absolute Neuts (auto) 6.4 Absolute Lymphs (auto) 1.21 Nucleated RBC % 0 Sodium 140 Potassium 3.5 Chloride 103 Carbon Dioxide 23.0 Anion Gap 14 BUN 13 Creatinine 0.69 Estim Creat Clear Calc 70.29 Est GFR (MDRD) Af Amer 112 Est GFR (MDRD) Non-Af 93 BUN/Creatinine Ratio 18.8 Glucose 163 H Calcium 9.3 Total Bilirubin 0.30 AST 26 ALT 34 Alkaline Phosphatase 111 Troponin I High Sens 1613 H* Total Protein 7.5 Albumin 3.7 Globulin 3.8 Albumin/Globulin Ratio 1.0 Lipase 71 L Urine Color Yellow Urine Clarity Clear Urine pH 6.0 Ur Specific [place] 1.020 Urine Protein 100 H Urine Glucose (UA) 100 H Urine Ketones 50 H Urine Occult Blood 25 H Urine Nitrite Negative Urine Bilirubin Negative Urine Urobilinogen Normal Ur Leukocyte Esterase Negative Urine RBC 0 SEEN Urine WBC 0-5 SEEN Ur Squamous Epith Cells 0 SEEN Urine Bacteria 0 SEEN Urine Mucus 0 SEEN Radiography Diagnostic Testing: Radiology Impression Abdomen/Pelvis CT 12/14/20 20:03 IMPRESSION: 1. Mild fluid and gaseous distention of the mid jejunal and proximal ileal loops compatible with either focal enteritis or focal ileus. No zone of transition or obstruction is visualized. Normal remaining small bowel loops. Electronically Signed: Abdiaziz Hendricks MD at 21:49 EDT , Service support , EKG Initial EKG: Attestation: I personally reviewed and interpreted this EKG as follows: Interpretation: Sinus Tachycardia, S-T Elevation (1, aVL) and S-T Depression (Inferiorly) Comments: Consistent with STEMI Prior: Changed Follow-up EKG: Attestation: I personally reviewed and interpreted this EKG as follows: Interpretation: Sinus Tachycardia, S-T Elevation (aVL more prominent compared with prior) and S-T Depression (Inferiorly) Critical Care Time Critical Care Time: Yes Critical care time (excluding procedures): 30-74 minutes (45 min), Including time spent:, Discussing w/Patient &/or Family/Metal Coater Operator, Discussing w/Consultants, Arranging Admission or Transfer and Performing Direct Patient Care at Bedside Discharge Plan Dx/Rx/DC Orders Clinical Impression: STEMI (ST elevation myocardial infarction) Disposition Disposition: Acute Care Hospital [facility] Discharge Date/Time: 12/14/20 22:06
[2020-12-14] MEDS: 0.9% Normal Saline 1,000 ML 125 ML IV (20:13)
[2020-12-14] MEDS: morphine 10 MG/ML Syringe IV (20:14)
[2020-12-14] MEDS: Ondansetron 4 MG/2 ML Vial IV (20:14)
[2020-12-14 20:30] LABS: Bacteria 0 SEEN /hpf (None Seen); Mucous, Urine 0 SEEN /hpf (<or=2+); Red Blood Cells-Urine 0 SEEN /hpf (0-5); Squamous Epithelial Cells - UA 0 SEEN /hpf (5-10)
[2020-12-14 20:34] LABS: Color, Urine Yellow (Yellow); Glucose, Dipstick 100 mg/dl (Normal); Ketone-Dipstick 50 mg/dl (Negative); Leukocyte Esterase-Dipstick Negative /ul (Negative); Nitrite-Dipstick Negative (Negative); Occult Blood-Urine 25 /ul (Negative); Protein-Dipstick 100 mg/dl (Negative); Urine Bilirubin Dipstick Negative (Negative); Urine Clarity Clear (Clear); Urine Urobilinogen Normal (Normal)
[2020-12-14 20:39] LABS: Absolute Lymphocyte Count 1.21 X10^3/uL (0.83-4.51); Absolute Neutrophil Count 6.4 X10^3/uL (2.0-7.7); Basophil# 0.02 X10^3/uL; Basophil% 0.2 % (0-1); Eosinophil# 0.02 X10^3/uL; Eosinophils% 0.2 % (0-5); Hematocrit 43.3 % (37-47); Hemoglobin 13.8 g/dL (12.0-15.0); Lymphocyte # 1.21 X10^3/ul (0.83-4.51); Lymphocyte % 14.2 % (19-41); Mean Corp Hgb Conc 31.9 g/dL (32-36); Mean Corpuscular Hgb 27.3 pg (27.0-32.0); Mean Corpuscular Volume 85.7 fL (81-99); Monocyte# 0.76 X10^3/uL; Monocyte% 8.9 % (0-10); NRBC Flagged by Analyzer 0 % (0-5); Neutrophil # 6.44 X10^3/uL (2.7-7.7); Neutrophil % 75.8 % (47-70); Platelet Count 284 K/mm3 (150-450); RBC Distribution Width CV 16.1 % (11.6-14.6); RBC Distribution Width SD 49.7 fl (35.1-43.9); Red Blood Count 5.05 M/mm3 (4.2-5.4); White Blood Count 8.5 K/mm3 (4.4-11.0)
[2020-12-14 20:47] LABS: White Blood Cells 0-5 SEEN /hpf (0-5)
--- NOTE | 2020-12-14 20:52 | CT_ITS ---
STUDY: CTA CHEST REASON FOR EXAM: Female, 60 years old. chest/back pain, r/o dissection RADIATION DOSAGE (If Supplied By Facility): CTDIvol = ( 17.41 ) mGy, DLP = ( 520.15 ) mGycm TECHNIQUE: The examination was performed with the intravenous administration of IV 75mL Isovue-370. Post-processing of the angiographic images was performed, with multiplanar reformation and 3D reconstruction. Individualized dose optimization techniques were used for this CT. COMPARISON: CT of abdomen and pelvis dated December 14, 2020 FINDINGS: Mild groundglass edema is present throughout both lungs. Reidentification of chronic interstitial thickening/fibrotic changes throughout both lungs. No focal consolidation is seen. No pleural effusion is present. There is limited enhancement of the main pulmonary artery and right and left pulmonary arteries. Normal enhancement of the bilateral peripheral pulmonary arteries. There is no demonstrated pulmonary embolism. Normal thoracic aorta and visualized great vessels. There is no demonstrated aortic dissection. Normal heart and pericardium. Normal mediastinum. Normal hilar regions. Normal visualized trachea and bronchi. The lungs are well expanded. Normal pleura. Normal chest wall structures. There are degenerative changes of thoracic spine. Cervical spine hardware noted. Unremarkable visualized upper abdomen. CT/CTA Chest W/WO Contrast IMPRESSION: 1. Mild groundglass edema is present throughout both lungs. Reidentification of chronic interstitial thickening/fibrotic changes throughout both lungs. No focal consolidation is seen. No pleural effusion is present. 2. No demonstrated pulmonary embolism or arterial dissection. Electronically Signed: Abdiaziz Hendricks MD at 22:11 EDT , Service support ,
[2020-12-14 21:15] LABS: AST(SGOT) 26 U/L (15-37); Alanine Aminotransfer ALT/SGPT 34 U/L (13-56); Albumin, Serum 3.7 g/dL (3.2-5.0); Alkaline Phosphatase 111 U/L (45-117); Anion Gap 14 (5-15); BUN 13 mg/dL (7-18); BUN/Creat Ratio 18.8 RATIO (10-20); Calcium,Total 9.3 mg/dL (8.5-10.1); Chloride 103 mmol/L (98-107); Creatinine, Serum 0.69 mg/dL (0.55-1.02); EST Glomerular Filtration Rate 93 mL/min (>60); Est Glom Filt Rate - Afr Amer 112 mL/min (>60); Estimated Creatinine Clearance 70.29 ml/min; Globulin 3.8 g/dL (2.2-4.2); Glucose 163 mg/dL (74-106); Lipase 71 U/L (73-393); Potassium 3.5 mmol/L (3.5-5.1); Protein, Total 7.5 g/dL (6.4-8.2); Sodium Level 140 mmol/L (136-145); Troponin-I HS 1613 pg/mL (3.0-54.0)
[2020-12-14] MEDS: Heparin 10,000 UNITS/10 ML Vial 5000 UNITS IV (21:25)
[2020-12-14] MEDS: Aspirin 325 MG Tablet PO (21:30)
--- NOTE | 2020-12-14 21:37 | PCM.HP.STD ---
HPI - General General Date of Admission: 12/14/20 HPI Narrative PARADISE FAUST, is a 60 F with a significant history of back pain with a stimulator; and prediabetes who presents at the emergent department with excruciating substernal squeezing and twisting chest pain that started about 3 hours prior to presentation. Her chest pain radiates to her back. Her chest pain worsens and improves with position. Associated with her symptom is shortness of breath; nausea; vomiting and diarrhea. ON LICENSE OF [facility] Medical History Arthritis Chronic pain Debility Depression GERD (gastroesophageal reflux disease) Injury of fifth cervical spinal cord Insomnia Morbid obesity Neuropathic pain Rheumatoid arthritis Spinal cord stimulator status Home Medications esomeprazole magnesium 40 mg PO BID 05/06/20 [History Last Taken Unknown] hydroxyzine HCl 25 - 50 mg PO Q8H PRN PRN 05/06/20 [History Last Taken Unknown] morphine 15 mg PO Q12H 05/06/20 [History Last Taken Unknown] oxybutynin chloride 10 mg PO DAILY 05/06/20 [History Last Taken Unknown] oxycodone-acetaminophen 1 ea PO TID 05/06/20 [History Last Taken Unknown] paroxetine HCl 30 mg PO DAILY 05/06/20 [History Last Taken Unknown] prednisone 5 mg PO PRN 05/06/20 [History Last Taken Unknown] cholecalciferol (vitamin D3) [Vitamin D3] 2,000 unit PO DAILY 12/14/20 [History Last Taken Unknown] folic acid-vit B6-vit B12 [Folbee] 1 tab PO DAILY 12/14/20 [History Last Taken Unknown] metformin 500 mg PO DAILY 12/14/20 [History Last Taken Unknown] methocarbamol 750 mg PO TID 12/14/20 [History Last Taken Unknown] tizanidine 4 mg PO Q6H PRN PRN 12/14/20 [History Last Taken Unknown] Allergy/AdvReac Type Severity Reaction Status Date / Time adhesive Allergy blisters Verified 08/24/16 13:02 codeine AdvReac Nausea Verified 08/23/16 14:17 Family History (Updated 12/14/20 @ 21:[address] Jay Plascencia MD) Other Heart disease Surgical History Previous back surgery Social History Smoking Status: Former smoker ROS ROS Narrative Constitutional: Denies anorexia and change in weight Eyes: Denies blurry vision, change in eye color, change in vision, discharge from eye(s), double vision, erythema, eye pain, loss of vision or other HEENT: Denies abnormal hearing, dysphagia, ear pain, epistaxis, headache(s), hearing loss, nasal congestion, nasal discharge, post nasal drip, sinus pressure, sore throat or other Cardiovascular: Reports chest pain. Denies dyspnea on exertion, orthopnea and paroxysmal nocturnal dyspnea. Respiratory/Chest: Reports shortness of breath. Denies cough, excessive phlegm production, and wheezing Gastrointestinal: Reports; nausea; vomiting and diarrhea. Genitourinary: Denies burning urination, difficulty urinating, dysuria, hematuria, nocturia, urinary frequency, urinary hesitancy, urinary incontinence, urinary urgency or other Musculoskeletal: Reports back pain. Neurologic: Denies abnormal gait, abnormal speech, confusion, disequilibrium, dizziness, focal weakness, headache(s), numbness, paresthesias, seizure-like activity, seizures, syncope, tingling, tremor(s) or other Psychiatric: Denies anxiety, depression, homicidal ideation, suicidal ideation or other Endocrinology: Denies change in body appearance, cold intolerance, excessive sweating, heat intolerance, polydipsia, polyuria or other Hematologic/Lymphatic: Denies anemia, easy bleeding, easy bruising, lymphadenopathy or other Integumentary: Denies ulcer on buttocks. Allergic/Immunologic: Denies rhinitis, hives, eczema, asthma or other Vital Signs Vital Signs Vital Signs: 12/14/20 18:00 12/14/20 20:20 Temperature 98.0 F Temperature Source Axillary Pulse Rate 100 105 H Respiratory Rate 29 H 17 Blood Pressure 195/136 H 127/96 H Blood Pressure Mean 155 106 Pulse Ox 99 94 Oxygen Delivery Method Room Air Room Air Weight Weight: 113.398 kg Body Mass Index (BMI) 45.7 Physical Exam Narrative Physical exam: General: In acute distress secondary to chest pain and back pain. Head: Normocephalic, atraumatic, no tenderness Eyes: PERRLA, EOMI ENT, no trauma, moist mucous membranes, no rhinorrhea Neck: Nontender, full range of motion, no spinal tenderness, deformities, step-off CVS: Regular rate and rhythm Respiratory no acute distress, clear to auscultation bilaterally, chest wall nontender, no wheezing Abdomen: Soft, nontender, nondistended, normal bowel sounds, no masses : Deferred Back: Nontender, no CVA tenderness, no midline spinal tenderness, deformities, step-offs Extremities: Nontender full range of motion, no trauma Skin: Normal color, no trauma, abrasions Neuro: Alert, oriented, cranial nerves II through XII grossly intact. Psychiatry: Normal mood. Normal affect. Not depressed. Not anxious. Results Lab / Micro Data Result Diagrams: 12/14/20 18:51 12/14/20 18:51 Labs: Laboratory Results - last 24 hr 12/14/20 18:51: WBC 8.5, RBC 5.05, Hgb 13.8, Hct 43.3, MCV 85.7, MCH 27.3, MCHC 31.9 L, RDW Std Deviation 49.7 H, RDW Coeff of Valdemar 16.1 H, Plt Count 284, MPV 9.0, Immature Gran % (Auto) 0.700, Neut % (Auto) 75.8 H, Lymph % (Auto) 14.2 L, [place] % (Auto) 8.9, Eos % (Auto) 0.2, Baso % (Auto) 0.2, Absolute Neuts (auto) 6.4, Absolute Lymphs (auto) 1.21, Nucleated RBC % 0 12/14/20 18:51: Sodium 140, Potassium 3.5, Chloride 103, Carbon Dioxide 23.0, Anion Gap 14, BUN 13, Creatinine 0.69, Estim Creat Clear Calc 70.29, Est GFR (MDRD) Af Amer 112, Est GFR (MDRD) Non-Af 93, BUN/Creatinine Ratio 18.8, Glucose 163 H, Calcium 9.3, Total Bilirubin 0.30, AST 26, ALT 34, Alkaline Phosphatase 111, Troponin I High Sens 1613 H*, Total Protein 7.5, Albumin 3.7, Globulin 3.8, Albumin/Globulin Ratio 1.0, Lipase 71 L 12/14/20 19:24: Urine Color Yellow, Urine Clarity Clear, Urine pH 6.0, Ur Specific [place] 1.020, Urine Protein 100 H, Urine Glucose (UA) 100 H, Urine Ketones 50 H, Urine Occult Blood 25 H, Urine Nitrite Negative, Urine Bilirubin Negative, Urine Urobilinogen Normal, Ur Leukocyte Esterase Negative, Urine RBC 0 SEEN, Urine WBC 0-5 SEEN, Ur Squamous Epith Cells 0 SEEN, Urine Bacteria 0 SEEN, Urine Mucus 0 SEEN Assessment & Plan Assessment/Plan (1) Acute coronary syndrome: (2) NSTEMI, initial episode of care: PLAN: Acute coronary syndrome/non-STEMI. EKG reviewed showed some elevation J-point. Per cardiology this is not STEMI. Chest CTA did not show any aortic dissection or pulmonary embolism. Actual chest CTA image was independently interpreted. Received aspirin and heparin at emergency department. High sensitive troponin of 1613; trend. Will be taken to the [facility] emergently. Follow-up for further pathology recommendation after patient has returned from the [facility]. Prediabetes On home Metformin. Hold. Accu-Chek correction scale insulin ordered. DVT prophylaxis: Received heparin bolus at the main department. SCD ordered for now. Charges/Coding Visit Charges Inpatient E&M: 29314 Init Hosp L3
--- NOTE | 2020-12-14 22:03 | ED.RN ---
was to sign consent and walked out to call sister and did not come back in time to sign..patient awake, alert and oriented
--- NOTE | 2020-12-14 22:51 | EKG12_ITS ---
Test Reason : CP Blood Pressure : / mmHG Vent. Rate : 111 BPM Atrial Rate : 111 BPM P-R Int : 146 ms QRS Dur : 074 ms QT Int : 358 ms P-R-T Axes : 054 069 039 degrees QTc Int : 486 ms AGE AND GENDER SPECIFIC ECG ANALYSIS Sinus tachycardia Abnormal ECG Confirmed by JOANNE WOLFE, ARABELLA ([id number]), sound editor SHIREEN HORTON ([id number]) on 12/19/2020 9:09:02 AM Referred By: Johnie Mckinnon Confirmed By:ARABELLA RUBIO MD
--- NOTE | 2020-12-14 22:56 | PRO.PCM_ITS ---
Procedure Report Date of Procedure: 12/14/20 Procedure performed; 1. Moderate sedation 2. Left heart catheterization 3. Placement of TR band to close the right radial artery arteriotomy site. Preprocedure diagnosis; 60-year-old patient, I was asked by the ER physician to evaluate this patient who presented with severe retrosternal, epigastric and back pain She had severe chronic back pain and she had stimulator and had history of prediabetes was on Metformin, she quit smoking 3 years ago when she had a history of left hip pain osteoarthritis severe left knee pain and symptoms is typical of severe retrosternal chest pain radiating to the back and she had some minor change in the electrocardiogram with [address] elevation noted in lead I aVL and remarkable ST depression noted in the inferior lead. A CT scan was performed showed no evidence of aortic dissection. Based on the clinical presentation with acute coronary syndrome does not meet the criteria for STEMI we will proceed with the House Superintendent. Patient was given heparin aspirin in the ER and electrocardiogram was repeated which showed a similar change however she continued to have the severe retrosternal chest pain. She lives with her ex- she has no children and her symptoms started this afternoon around 3:00. Consent; Risk and benefits of procedure explained detail to patient she elected to proceed informed consent obtained Type of sedation moderate sedation Supervision of sedation DrJamie For long She was given intravenous Versed. Diagnostic catheter used; 1. 6 [place] sheath placed in the right radial artery, with a cocktail of verapamil, heparin as well as nitroglycerin was given through the sheath 2. Use a diagnostic catheter of 5 [place] JR4 catheter 6 [place] JL4 guide catheter Procedure in detail; Patient brought as an emergency to the House Superintendent and will proceed with access from the right radial artery next and 6 [place] sheath placed in the right radial artery/Terumo sheath and then the cocktail was given which is a heparin 3000IU , 200 mcg of nitro and 2.5 mg of verapamil we proceed with the regular wire and a 5 [place] JR4 diagnostic cannulated the ostium of the RCA and multiple views of the right coronary system obtained. Following this we will proceed with the 6 [place] JL 4 guide cannulated the left main ostium without difficulty multiple views of the left coronary system were obtained including LILY, PATINO cranial and caudal views. Angiographic views studied and discussed with the patient Findings coronary angiography; Left main Short, angiographically no obstructive atherosclerosis of the left main noted The left main coronary artery trifurcates into LAD, ramus intermedius and the left circumflex The left anterior descending artery is a large vessel reach all the way to the apex Angiographically there is nonobstructive atherosclerosis of around 10-20% of the proximal, mid left anterior descending Side branch which is a second diagonal branch had an ostial lesion of around 40 to 50% With a WARD-3 flow in the LAD and the side branches. The LAD also noted to have abundant septal branches The ramus intermedius is a small vessel at the minor mild ST mild stenosis/ostial ramus intermedius The left circumflex is moderate-sized vessel and angiographically had no obstructive atherosclerosis Right coronary artery is a large dominant vessel bifurcating into RPDA and posterolateral branch There is a lesion at the ostium of the RPDA which is around 40 to 50%. Conclusion and plan; This patient had nonobstructive coronary atherosclerosis Her presentation is acute coronary syndrome with mild change in the lateral leads with ST depression noted in the inferior, 2 3 and aVF leads. Patient will be treated with medical therapy with atorvastatin, aspirin, long- acting nitroglycerin. Patient has been on Metformin for prediabetes and I will defer to the medical team for follow-up and evaluation. Patient to follow-up with the cardiology team group here at [facility]. Johnie Mckinnon MD,FACC,[facility]
--- NOTE | 2020-12-14 23:37 | EKG12_ITS ---
Test Reason : CP ADMIT Blood Pressure : / mmHG Vent. Rate : 106 BPM Atrial Rate : 106 BPM P-R Int : 142 ms QRS Dur : 072 ms QT Int : 356 ms P-R-T Axes : 046 057 027 degrees QTc Int : 472 ms AGE AND GENDER SPECIFIC ECG ANALYSIS Sinus tachycardia ST Depression c/w Inferior Ischemia Abnormal ECG When compared with ECG of 14-DEC-2020 20:17, MANUAL COMPARISON REQUIRED, DATA IS UNCONFIRMED Confirmed by JOANNE WOLFE, ARABELLA ([id number]), web content editor SHIREEN HORTON ([id number]) on 12/19/2020 1:14:09 PM Referred By: Johnie Mckinnon Confirmed By:ARABELLA RUBIO MD
[2020-12-14] MEDS: Pantoprazole Sodium 40 MG Tablet PO (23:43)
[2020-12-14] MEDS: Methocarbamol 750 MG Tablet PO (23:43)
[2020-12-14] MEDS: 0.9% Normal Saline 1,000 ML 75 ML IV (23:50)
[2020-12-15] VITALS (25 sets, daily range): BP systolic 96–129; BP diastolic 50–98; PULSE 84–107; RESP 14–22; TEMP 35.8–36.9; O2SAT 87–96
[2020-12-15 00:07] LABS: BNP,B-Type NATRIURETIC PEPTIDE 52.7 pg/mL (0-100)
--- NOTE | 2020-12-15 00:39 | PCS.PANDOC ---
PANDEMIC DOCUMENTATION INITIATED: Date: 12/14/2020 Time: 9835
[2020-12-15] MEDS: Acetaminophen 325 MG Tablet 650 MG PO (01:24)
[2020-12-15 01:30] LABS: Bedside Glucose 122 mg/dL (70-110)
[2020-12-15] MEDS: morphine SR 15 MG Tablet PO ×3 (01:40→22:36)
[2020-12-15 01:50] LABS: Troponin-I HS 4291 pg/mL (3.0-54.0)
[2020-12-15 04:02] LABS: Troponin-I HS 4783 pg/mL (3.0-54.0)
--- NOTE | 2020-12-15 05:55 | EKG12_ITS ---
Test Reason : STEMI Blood Pressure : / mmHG Vent. Rate : 116 BPM Atrial Rate : 116 BPM P-R Int : 144 ms QRS Dur : 072 ms QT Int : 340 ms P-R-T Axes : 052 060 038 degrees QTc Int : 472 ms AGE AND GENDER SPECIFIC ECG ANALYSIS Sinus tachycardia ST Depression Abnormal ECG Confirmed by JOANNE WOLFE, ARABELLA ([id number]), scientific editor SHIREEN HORTON ([id number]) on 12/19/2020 9:16:54 AM Referred By: Johnie Mckinnon Confirmed By:ARABELLA RUBIO MD
--- NOTE | 2020-12-15 06:18 | ECHOCS_ITS ---
Reason For Study: CAD Procedure This was a 2D Doppler, Color Flow transthoracic echocardiogram. The study was technically difficult. Contrast injection was performed. Exam performed portable in patient room. Left Ventricle Mildly dilated left ventricle. The estimated ejection fraction is EF 35-40 %. Right Ventricle Normal right ventricle. Normal systolic function. Atria Normal left atrium. Normal right atrium. Mitral Valve The mitral valve is structurally normal. No prolapse or stenosis seen. Mild (1+) eccentric mitral valve insufficiency. Tricuspid Valve Normal tricuspid valve. Aortic Valve Normal aortic valve. Pulmonic Valve The pulmonic valve is not well visualized. Great Vessels Normal aortic root. Pericardium/Pleural Small pericardial effusion. Medication Diluted definity 3.0ml given slow IV push to enhance endocardial definition. MMode/2D Measurements & Calculations LVIDd: 4.0 cm IVSd: 0.89 cm Ao root diam: 3.4 cm LVIDs: 3.1 cm LVPWd: 0.86 cm RVDd: 2.7 cm FS: 21.4 % LAV(MOD-bp): 32.8 ml LVAd ap4: 31.8 cm2 SV(MOD-sp4): 47.7 ml LAV(MOD-bp) Indexed: 17.3 ml/m2 LVLd ap4: 7.9 cm LAV(MOD-sp2): 34.0 ml EDV(MOD-sp4): 108.2 ml LAV(MOD-sp4): 32.8 ml EDV(sp4-el): 108.2 ml LVAs ap4: 21.0 cm2 LVLs ap4: 6.5 cm ESV(MOD-sp4): 60.5 ml ESV(sp4-el): 57.7 ml EF(MOD-sp4): 44.1 % EF(sp4-el): 46.7 % SV(sp4-el): 50.6 ml LA A4 area: 13.9 cm2 LA dimension(2D): 4.8 cm RA A4 area: 11.4 cm2 Time Measurements MV dec time: 0.20 sec Doppler Measurements & Calculations MV E max jose: 87.6 cm/sec Lat Peak E' Jose: 5.6 cm/sec Med Peak E' Jose: 3.9 cm/sec MV A max jose: 52.2 cm/sec E/E' lat: 15.8 E/E' med: 22.3 MV E/A: 1.7 Ao V2 max: 145.0 cm/sec LV V1 max: 115.4 cm/sec PA V2 max: 160.6 cm/sec Ao max P.4 mmHg LV V1 max P.3 mmHg TR max jose: 288.7 cm/sec TR max P.3 mmHg ECHO/Echo Complete W/ Contrast Interpretation Summary The estimated ejection fraction is EF 40-45% Mild MR Ordering Physician: Johnie Mckinnon Referring Physician: JAMES YEAGER Performed By: Mary Rutledge, RDCS, RVT
[2020-12-15] MEDS: oxyCODONE 5 MG Tablet 7.5 MG PO ×3 (06:28→21:07)
[2020-12-15] MEDS: Methocarbamol 750 MG Tablet PO ×3 (06:28→20:57)
[2020-12-15 06:36] LABS: Bedside Glucose 125 mg/dL (70-110)
[2020-12-15 07:21] LABS: Absolute Lymphocyte Count 2.34 X10^3/uL (0.83-4.51); Absolute Neutrophil Count 7.8 X10^3/uL (2.0-7.7); Basophil# 0.04 X10^3/uL; Basophil% 0.3 % (0-1); Eosinophil# 0.11 X10^3/uL; Eosinophils% 0.9 % (0-5); Hematocrit 42.5 % (37-47); Hemoglobin 13.3 g/dL (12.0-15.0); Lymphocyte # 2.34 X10^3/ul (0.83-4.51); Lymphocyte % 19.7 % (19-41); Mean Corp Hgb Conc 31.3 g/dL (32-36); Mean Corpuscular Hgb 27.5 pg (27.0-32.0); Mean Corpuscular Volume 87.8 fL (81-99); Mean Platelet Vol. 8.2 fl (6.2-12.0); Monocyte# 1.57 X10^3/uL; Monocyte% 13.2 % (0-10); NRBC Flagged by Analyzer 0 % (0-5); Neutrophil # 7.75 X10^3/uL (2.7-7.7); Neutrophil % 65.3 % (47-70); POSITIVE DIFFERENTIAL YES; Platelet Count 227 K/mm3 (150-450); RBC Distribution Width SD 54.4 fl (35.1-43.9); Red Blood Count 4.84 M/mm3 (4.2-5.4); White Blood Count 11.9 K/mm3 (4.4-11.0)
[2020-12-15 07:24] LABS: Differential Indicated SCAN CRITERIA MET
[2020-12-15 07:44] LABS: Anion Gap 9 (5-15); BUN 14 mg/dL (7-18); BUN/Creat Ratio 24.9 RATIO (10-20); Chloride 107 mmol/L (98-107); Cholesterol 270 mg/dL (200); Creatinine, Serum 0.56 mg/dL (0.55-1.02); EST Glomerular Filtration Rate 117 mL/min (>60); Est Glom Filt Rate - Afr Amer 142 mL/min (>60); Estimated Creatinine Clearance 86.61 ml/min; Glucose 119 mg/dL (74-106); High Density Lipoprotein 43 mg/dL; Potassium 3.5 mmol/L (3.5-5.1); Sodium Level 142 mmol/L (136-145); Triglycerides 326 mg/dL; Very Low Density Lipoprotein 65 mg/dL (5-40)
[2020-12-15 08:01] LABS: Troponin-I HS 4723 pg/mL (3.0-54.0)
[2020-12-15 08:10] LABS: Hemoglobin A1c 6.5 % (3.8-5.6)
[2020-12-15] MEDS: Aspirin 81 MG TAB.CHEW PO (08:16)
[2020-12-15] MEDS: Pantoprazole Sodium 40 MG Tablet PO ×2 (08:17→20:59)
[2020-12-15] MEDS: Tolterodine Tartrate 2 MG CAP.SA PO (08:17)
[2020-12-15] MEDS: Isosorbide Mononitrate 30 MG Tablet PO (08:17)
[2020-12-15] MEDS: Enoxaparin 40 MG/0.4 ML Syringe SC ×2 (08:17→20:49)
[2020-12-15] MEDS: PARoxetine 10 MG Tablet 30 MG PO (08:19)
[2020-12-15] MEDS: Cholecalciferol (VIT D3) 25 MCG TABLET (1,000 UNITS) 50 MCG PO (08:20)
--- NOTE | 2020-12-15 09:25 | PN.CARD_ITS ---
Documented by User: Jocelyn SOARES, RODGER 12/15/20 13:17 Subjective Subjective Pt is doing well, she still notes some CP but improved since last night. Back pain has resolved. Denies: SOB, N/V,JASON Objective Data Vital Signs: Vital Signs Temp Pulse Resp BP Pulse Ox 96.5 F L 107 H 20 H 123/80 H 92 12/15/20 08:01 12/15/20 08:01 12/15/20 08:31 12/15/20 08:01 12/15/20 08:40 Oxygen Flow Rate (L/min) 2 Oxygen Delivery Method Nasal Cannula Weight: 195 lb 15.855 oz Body Mass Index (BMI) 35.8 Intake & Output: Intake and Output for Last 24 Hours 12/13/20 12/14/20 12/15/20 23:59 23:59 23:59 Intake Total 456.25 / 516.25 180 / 180 Output Total 250 / 250 Balance 456.25 / 516.25 -70 / -70 Lab / Micro Data Result Diagrams: 12/15/20 07:10 12/15/20 07:10 Labs: Laboratory Results - last 24 hr 12/14/20 18:51: WBC 8.5, RBC 5.05, Hgb 13.8, Hct 43.3, MCV 85.7, MCH 27.3, MCHC 31.9 L, RDW Std Deviation 49.7 H, RDW Coeff of Valdemar 16.1 H, Plt Count 284, MPV 9.0, Immature Gran % (Auto) 0.700, Neut % (Auto) 75.8 H, Lymph % (Auto) 14.2 L, [place] % (Auto) 8.9, Eos % (Auto) 0.2, Baso % (Auto) 0.2, Absolute Neuts (auto) 6.4, Absolute Lymphs (auto) 1.21, Nucleated RBC % 0 12/14/20 18:51: Sodium 140, Potassium 3.5, Chloride 103, Carbon Dioxide 23.0, Anion Gap 14, BUN 13, Creatinine 0.69, Estim Creat Clear Calc 70.29, Est GFR (MDRD) Af Amer 112, Est GFR (MDRD) Non-Af 93, BUN/Creatinine Ratio 18.8, Glucose 163 H, Calcium 9.3, Total Bilirubin 0.30, AST 26, ALT 34, Alkaline Phosphatase 111, Troponin I High Sens 1613 H*, Total Protein 7.5, Albumin 3.7, Globulin 3.8, Albumin/Globulin Ratio 1.0, Lipase 71 L 12/14/20 18:51: B-Natriuretic Peptide 52.7 12/14/20 19:24: Urine Color Yellow, Urine Clarity Clear, Urine pH 6.0, Ur Specific [place] 1.020, Urine Protein 100 H, Urine Glucose (UA) 100 H, Urine Ketones 50 H, Urine Occult Blood 25 H, Urine Nitrite Negative, Urine Bilirubin Negative, Urine Urobilinogen Normal, Ur Leukocyte Esterase Negative, Urine RBC 0 SEEN, Urine WBC 0-5 SEEN, Ur Squamous Epith Cells 0 SEEN, Urine Bacteria 0 SEEN, Urine Mucus 0 SEEN 12/14/20 23:55: COVID-19 (JONI) Not Detected 12/15/20 01:12: POC Glucose 122 H 12/15/20 01:20: Troponin I High Sens 4291 H* 12/15/20 03:20: Troponin I High Sens 4783 H* 12/15/20 06:27: POC Glucose 125 H 12/15/20 07:10: WBC 11.9 H, RBC 4.84, Hgb 13.3, Hct 42.5, MCV 87.8, MCH 27.5, MCHC 31.3 L, RDW Std Deviation 54.4 H, RDW Coeff of Valdem[place] 17.0 H, Plt Count 227, MPV 8.2, Immature Gran % (Auto) 0.600, Neut % (Auto) 65.3, Lymph % (Auto) 19.7, [place] % (Auto) 13.2 H, Eos % (Auto) 0.9, Baso % (Auto) 0.3, Absolute Neuts (auto) 7.8 H, Absolute Lymphs (auto) 2.34, Nucleated RBC % 0, Diff Path Review August12/15/20 07:10: Sodium 142, Potassium 3.5, Chloride 107, Carbon Dioxide 26.0, Anion Gap 9, BUN 14, Creatinine 0.56, Estim Creat Clear Calc 86.61, Est GFR (MDRD) Af Amer 142, Est GFR (MDRD) Non-Af 117, BUN/Creatinine Ratio 24.9 H, Glucose 119 H, Calcium 8.0 L, Triglycerides 326 H, Cholesterol 270 H, LDL Cholesterol 162 H, VLDL Cholesterol 65 H, HDL Cholesterol 43 12/15/20 07:10: Hemoglobin A1c 6.5 H 12/15/20 07:10: Troponin I High Sens 4723 H* Micro: Microbiology 12/14/20 22:57 Mucosa - Nose SARS-CoV-2 Antigen (Rapid) - Final Cardiology Labs/Tests 12/14/20 18:51: WBC 8.5, RBC 5.05, Hgb 13.8, Hct 43.3, MCV 85.7, MCH 27.3, MCHC 31.9 L, Plt Count 284, MPV 9.0, Immature Gran % (Auto) 0.700, Neut % (Auto) 75.8 H, Lymph % (Auto) 14.2 L, [place] % (Auto) 8.9, Eos % (Auto) 0.2, Baso % (Auto) 0.2, Absolute Neuts (auto) 6.4, Nucleated RBC % 0 12/14/20 18:51: Sodium 140, Potassium 3.5, Chloride 103, Carbon Dioxide 23.0, Anion Gap 14, BUN 13, Creatinine 0.69, Est GFR (MDRD) Af Amer 112, Est GFR (MDRD) Non-Af 93, BUN/Creatinine Ratio 18.8, Glucose 163 H, Calcium 9.3, Total Bilirubin 0.30 12/14/20 18:51: B-Natriuretic Peptide 52.7 12/14/20 19:24: Urine Color Yellow, Urine Clarity Clear, Urine pH 6.0, Ur Specific [place] 1.020, Urine Protein 100 H, Urine Glucose (UA) 100 H, Urine Ketones 50 H, Urine Occult Blood 25 H, Urine Nitrite Negative, Urine Bilirubin Negative, Urine Urobilinogen Normal, Ur Leukocyte Esterase Negative, Urine RBC 0 SEEN, Urine WBC 0-5 SEEN 12/15/20 07:10: WBC 11.9 H, RBC 4.84, Hgb 13.3, Hct 42.5, MCV 87.8, MCH 27.5, MCHC 31.3 L, Plt Count 227, MPV 8.2, Immature Gran % (Auto) 0.600, Neut % (Auto) 65.3, Lymph % (Auto) 19.7, [place] % (Auto) 13.2 H, Eos % (Auto) 0.9, Baso % (Auto) 0.3, Absolute Neuts (auto) 7.8 H, Nucleated RBC % 0 12/15/20 07:10: Sodium 142, Potassium 3.5, Chloride 107, Carbon Dioxide 26.0, Anion Gap 9, BUN 14, Creatinine 0.56, Est GFR (MDRD) Af Amer 142, Est GFR (MDRD) Non-Af 117, BUN/Creatinine Ratio 24.9 H, Glucose 119 H, Calcium 8.0 L, Triglycerides 326 H, Cholesterol 270 H, LDL Cholesterol 162 H, VLDL Cholesterol 65 H, HDL Cholesterol 43 12/15/20 07:10: Hemoglobin A1c 6.5 H Rhythm: Sinus Tach Cardiac Cath: 12/14/2020 Left main Short, angiographically no obstructive atherosclerosis of the left main noted The left main coronary artery trifurcates into LAD, ramus intermedius and the left circumflex The left anterior descending artery is a large vessel reach all the way to the apex Angiographically there is nonobstructive atherosclerosis of around 10-20% of the proximal, mid left anterior descending Side branch which is a second diagonal branch had an ostial lesion of around 40 to 50% With a WARD-3 flow in the LAD and the side branches. The LAD also noted to have abundant septal branches The ramus intermedius is a small vessel at the minor mild ST mild stenosis/o stial ramus intermedius The left circumflex is moderate-sized vessel and angiographically had no obs tructive atherosclerosis Right coronary artery is a large dominant vessel bifurcating into RPDA and posterolateral branch There is a lesion at the ostium of the RPDA which is around 40 to 50%. Conclusion and plan; This patient had nonobstructive coronary atherosclerosis Her presentation is acute coronary syndrome with mild change in the lateral leads with ST depression noted in the inferior, 2 3 and aVF leads. Patient will be treated with medical therapy with atorvastatin, aspirin, long- acting nitroglycerin. Patient has been on Metformin for prediabetes and I will defer to the medical team for follow-up and evaluation. Patient to follow-up with the cardiology team group here at [facility]. Radiography Diagnostic Testing: Radiology Impression Abdomen/Pelvis CT 12/14/20 20:03 IMPRESSION: 1. Mild fluid and gaseous distention of the mid jejunal and proximal ileal loops compatible with either focal enteritis or focal ileus. No zone of transition or obstruction is visualized. Normal remaining small bowel loops. Electronically Signed: Abdiaziz Hendricks MD at 21:49 EDT , Service support , Chest CTA 12/14/20 20:52 IMPRESSION: 1. Mild groundglass edema is present throughout both lungs. Reidentification of chronic interstitial thickening/fibrotic changes throughout both lungs. No focal consolidation is seen. No pleural effusion is present. 2. No demonstrated pulmonary embolism or arterial dissection. Electronically Signed: Abdiaziz Hendricks MD at 22:11 EDT , Service support , Physical Exam Const alert, oriented x3 and no apparent distress Nutritional Appearance: obese HEENT normocephalic, head/scalp atraumatic, hearing grossly normal bilaterally, external ears normal, EAC's normal, nasal mucous membranes and turbinates normal and moist oral mucous membranes Eyes PERRL, EOMs intact bilaterally, conjunctivae normal, no scleral icterus and normal visual sotelo by confrontation Neck full ROM, no lymphadenopathy, supple and no JVD Resp normal respiratory effort, normal air movement, no retractions, no use of accessory muscles and clear to auscultation bilaterally Cardio regular rhythm, S1 normal heart sound, S2 normal heart sound, no murmurs, no rub, no gallops, no clicks, no JVD and peripheral pulses 2+ throughout Rate: tachycardic GI normal to inspection, nondistended, normoactive bowel sounds, soft to palpation, non-tender and non-distended Extremity normal to inspection, full ROM, normal capillary refill, no clubbing, cyanosis or edema and no pedal edema Neuro oriented x3, CN's II-XII intact bilaterally, moves all extremities and no focal motor deficits Assessment & Plan Assessment/Plan (1) NSTEMI, initial episode of care: PLAN: * Pt had nonobstructive CAD based on cath * Will continue with ASA, Atorvastatin, Isosorbide * will start on Plavix, low dose metoprolol and low dose lisinopril * echo is pending * will refer to cardiac rehab on an OP basis (2) Acute coronary syndrome: (3) Hyperlipidemia: PLAN: * pt was started on high intensity statin Documented by User: Dr. Johnie Mckinnon MD 12/15/20 13:39 Objective Data Cardiac rhythm is normal sinus Lab / Micro Data Result Diagrams: 12/15/20 07:10 12/15/20 07:10 Assessment & Plan Assessment/Plan (1) NSTEMI, initial episode of care: (2) Acute coronary syndrome: (3) Hyperlipidemia: PLAN: Patient seen independently today by me in the progressive care unit she was sitting out in a chair and her ex- was at bedside I discussed the cardiac care plan in detail with the nursing staff Also I reviewed the midlevel documentation regarding the cardiac care plan Patient presented with symptoms of chest pain underwent cardiac catheterization secondary to change in the electrocardiogram and subsequent cardiac biomarkers showed elevated the high sensitive troponin with a clinical diagnosis of non-ST elevation KS Patient had a history of hyperlipidemia she quit smoking 3 years ago cardiac examination essentially normal She was a started on medical therapy and her symptoms of chest pain improved significantly today this morning The cardiac rhythm this morning is normal sinus rhythm her vital signs has been stable Recommendation plan 1. We will continue DAPT/dual antiplatelet therapy with Plavix and aspirin 2. High-dose statin 3. Beta-simona metoprolol We talked about Low-dose MOSHE inhibitor Patient to follow-up with the [facility] cardiology team for continuation of cardiac care plan As well to start the patient on phase 1 cardiac rehab program. Charges/Coding Visit Charges Inpatient E&M: 73201 Subs Hosp L3
--- NOTE | 2020-12-15 11:02 | PCM.CONS.C ---
Documented by User: RODGER Buchanan 12/15/20 13:20 Assessment & Plan Assessment/Plan (1) Acute coronary syndrome: PLAN: pt was urgently taken for a heart cath, heart cath demonstrated non obstructive disease will treat with ASA, Atorvastatin and isosorbide will obtain echo tomorrow HPI Consult Data Date of Consult: 12/15/20 HPI Narrative Reason for Consultation: ACS HPI Narrative: PARADISE FAUST, is a 60 F who presented to the Er for severe back pain. I was asked by the ER physician to evaluate this patient who presented with severe retrosternal, epigastric and back pain. Associated with her symptom is shortness of breath; nausea; vomiting and diarrhea. She had severe chronic back pain and she had stimulator and had history of prediabetes was on Metformin, she quit smoking 3 years ago when she had a history of left hip pain osteoarthritis severe left knee pain and symptoms is typical of severe retrosternal chest pain radiating to the back and she had some minor change in the electrocardiogram with [address] elevation noted in lead I aVL and remarkable ST depression noted in the inferior lead. A CT scan was performed showed no evidence of aortic dissection. Based on the clinical presentation with acute coronary syndrome does not meet the criteria for STEMI we will proceed with the [facility]. Patient was given heparin aspirin in the ER and electrocardiogram was repeated which showed a similar change however she continued to have the severe retrosternal chest pain. She lives with her ex- she has no children and her symptoms started this afternoon around 3:00. [facility] Medical History (Updated 12/15/20 @ 10:56 by Jocelyn SOARES PA) Arthritis Chronic pain Debility Depression Former smoker GERD (gastroesophageal reflux disease) Hyperlipidemia Injury of fifth cervical spinal cord Insomnia Morbid obesity Neuropathic pain Rheumatoid arthritis Spinal cord stimulator status Home Medications esomeprazole magnesium 40 mg PO BID 05/06/20 [History Last Taken 12/14/20 09:00] hydroxyzine HCl 25 - 50 mg PO Q8H PRN PRN 05/06/20 [History Last Taken 12/14/20 09:00] morphine 15 mg PO Q12H 05/06/20 [History Last Taken 12/14/20 09:00] oxybutynin chloride 10 mg PO DAILY 05/06/20 [History Last Taken 12/14/20 09:00] oxycodone-acetaminophen 1 ea PO TID 05/06/20 [History Last Taken 12/14/20 09:00] paroxetine HCl 30 mg PO DAILY 05/06/20 [History Last Taken 12/14/20 09:00] prednisone 5 mg PO PRN 05/06/20 [History Last Taken Unknown] cholecalciferol (vitamin D3) [Vitamin D3] 2,000 unit PO DAILY 12/14/20 [History Last Taken 12/14/20 09:00] folic acid-vit B6-vit B12 [Folbee] 1 tab PO DAILY 12/14/20 [History Last Taken 12/14/20 09:00] metformin 500 mg PO DAILY 12/14/20 [History Last Taken 12/14/20 09:00] methocarbamol 750 mg PO TID 12/14/20 [History Last Taken 12/14/20 09:00] tizanidine 4 mg PO Q6H PRN PRN 12/14/20 [History Last Taken 12/14/20 09:00] Allergy/AdvReac Type Severity Reaction Status Date / Time adhesive Allergy blisters Verified 08/24/16 13:02 codeine AdvReac Nausea Verified 08/23/16 14:17 Family History (Updated 12/14/20 @ 21:[address] Jay Plascencia MD) Other Heart disease Surgical History (Updated 12/14/20 @ 23:22 by Oscar Perry) History of appendectomy Previous back surgery Social History Smoking Status: Former smoker ROS ROS Narrative See HPI Physical Exam Const alert and oriented x3 Nutritional Appearance: obese HEENT normocephalic, hearing grossly normal bilaterally, external ears normal, EAC's normal, external nose normal and nasal mucous membranes and turbinates normal Eyes PERRL, EOMs intact bilaterally, conjunctivae normal, no scleral icterus and normal visual sotelo by confrontation Neck full ROM, no lymphadenopathy, supple and no JVD Chest inspection of chest normal Resp normal respiratory effort, normal air movement and clear to auscultation bilaterally Cardio regular rhythm, S1 normal heart sound and S2 normal heart sound; Negative for no murmurs, no rub or no gallops Rate: tachycardic GI normal to inspection, nondistended, normoactive bowel sounds, soft to palpation, non-tender and non-distended Objective Data Vital Signs: Vital Signs Temp Pulse Resp BP Pulse Ox 96.5 F L 107 H 20 H 123/80 H 92 12/15/20 08:01 12/15/20 08:01 12/15/20 08:31 12/15/20 08:01 12/15/20 08:40 Oxygen Flow Rate (L/min) 2 Oxygen Delivery Method Nasal Cannula Weight: 195 lb 15.855 oz Body Mass Index (BMI) 35.8 Intake & Output: Intake and Output for Last 24 Hours 12/13/20 12/14/20 12/15/20 23:59 23:59 23:59 Intake Total 456.25 / 516.25 180 / 180 Output Total 250 / 250 Balance 456.25 / 516.25 -70 / -70 Lab / Micro Data Result Diagrams: 12/15/20 07:10 12/15/20 07:10 Labs: Laboratory Results - last 24 hr 12/14/20 18:51: WBC 8.5, RBC 5.05, Hgb 13.8, Hct 43.3, MCV 85.7, MCH 27.3, MCHC 31.9 L, RDW Std Deviation 49.7 H, RDW Coeff of Valdemar 16.1 H, Plt Count 284, MPV 9.0, Immature Gran % (Auto) 0.700, Neut % (Auto) 75.8 H, Lymph % (Auto) 14.2 L, [place] % (Auto) 8.9, Eos % (Auto) 0.2, Baso % (Auto) 0.2, Absolute Neuts (auto) 6.4, Absolute Lymphs (auto) 1.21, Nucleated RBC % 0 12/14/20 18:51: Sodium 140, Potassium 3.5, Chloride 103, Carbon Dioxide 23.0, Anion Gap 14, BUN 13, Creatinine 0.69, Estim Creat Clear Calc 70.29, Est GFR (MDRD) Af Amer 112, Est GFR (MDRD) Non-Af 93, BUN/Creatinine Ratio 18.8, Glucose 163 H, Calcium 9.3, Total Bilirubin 0.30, AST 26, ALT 34, Alkaline Phosphatase 111, Troponin I High Sens 1613 H*, Total Protein 7.5, Albumin 3.7, Globulin 3.8, Albumin/Globulin Ratio 1.0, Lipase 71 L 12/14/20 18:51: B-Natriuretic Peptide 52.7 12/14/20 19:24: Urine Color Yellow, Urine Clarity Clear, Urine pH 6.0, Ur Specific [place] 1.020, Urine Protein 100 H, Urine Glucose (UA) 100 H, Urine Ketones 50 H, Urine Occult Blood 25 H, Urine Nitrite Negative, Urine Bilirubin Negative, Urine Urobilinogen Normal, Ur Leukocyte Esterase Negative, Urine RBC 0 SEEN, Urine WBC 0-5 SEEN, Ur Squamous Epith Cells 0 SEEN, Urine Bacteria 0 SEEN, Urine Mucus 0 SEEN 12/14/20 23:55: COVID-19 (JONI) Not Detected 12/15/20 01:12: POC Glucose 122 H 12/15/20 01:20: Troponin I High Sens 4291 H* 12/15/20 03:20: Troponin I High Sens 4783 H* 12/15/20 06:27: POC Glucose 125 H 12/15/20 07:10: WBC 11.9 H, RBC 4.84, Hgb 13.3, Hct 42.5, MCV 87.8, MCH 27.5, MCHC 31.3 L, RDW Std Deviation 54.4 H, RDW Coeff of Valdem[place] 17.0 H, Plt Count 227, MPV 8.2, Immature Gran % (Auto) 0.600, Neut % (Auto) 65.3, Lymph % (Auto) 19.7, [place] % (Auto) 13.2 H, Eos % (Auto) 0.9, Baso % (Auto) 0.3, Absolute Neuts (auto) 7.8 H, Absolute Lymphs (auto) 2.34, Nucleated RBC % 0, Diff Path Review August12/15/20 07:10: Sodium 142, Potassium 3.5, Chloride 107, Carbon Dioxide 26.0, Anion Gap 9, BUN 14, Creatinine 0.56, Estim Creat Clear Calc 86.61, Est GFR (MDRD) Af Amer 142, Est GFR (MDRD) Non-Af 117, BUN/Creatinine Ratio 24.9 H, Glucose 119 H, Calcium 8.0 L, Triglycerides 326 H, Cholesterol 270 H, LDL Cholesterol 162 H, VLDL Cholesterol 65 H, HDL Cholesterol 43 12/15/20 07:10: Hemoglobin A1c 6.5 H 12/15/20 07:10: Troponin I High Sens 4723 H* Micro: Microbiology 12/14/20 22:57 Mucosa - Nose SARS-CoV-2 Antigen (Rapid) - Final Cardiology Labs/Tests 12/14/20 18:51: WBC 8.5, RBC 5.05, Hgb 13.8, Hct 43.3, MCV 85.7, MCH 27.3, MCHC 31.9 L, Plt Count 284, MPV 9.0, Immature Gran % (Auto) 0.700, Neut % (Auto) 75.8 H, Lymph % (Auto) 14.2 L, [place] % (Auto) 8.9, Eos % (Auto) 0.2, Baso % (Auto) 0.2, Absolute Neuts (auto) 6.4, Nucleated RBC % 0 12/14/20 18:51: Sodium 140, Potassium 3.5, Chloride 103, Carbon Dioxide 23.0, Anion Gap 14, BUN 13, Creatinine 0.69, Est GFR (MDRD) Af Amer 112, Est GFR (MDRD) Non-Af 93, BUN/Creatinine Ratio 18.8, Glucose 163 H, Calcium 9.3, Total Bilirubin 0.30 12/14/20 18:51: B-Natriuretic Peptide 52.7 12/14/20 19:24: Urine Color Yellow, Urine Clarity Clear, Urine pH 6.0, Ur Specific [place] 1.020, Urine Protein 100 H, Urine Glucose (UA) 100 H, Urine Ketones 50 H, Urine Occult Blood 25 H, Urine Nitrite Negative, Urine Bilirubin Negative, Urine Urobilinogen Normal, Ur Leukocyte Esterase Negative, Urine RBC 0 SEEN, Urine WBC 0-5 SEEN 12/15/20 07:10: WBC 11.9 H, RBC 4.84, Hgb 13.3, Hct 42.5, MCV 87.8, MCH 27.5, MCHC 31.3 L, Plt Count 227, MPV 8.2, Immature Gran % (Auto) 0.600, Neut % (Auto) 65.3, Lymph % (Auto) 19.7, [place] % (Auto) 13.2 H, Eos % (Auto) 0.9, Baso % (Auto) 0.3, Absolute Neuts (auto) 7.8 H, Nucleated RBC % 0 12/15/20 07:10: Sodium 142, Potassium 3.5, Chloride 107, Carbon Dioxide 26.0, Anion Gap 9, BUN 14, Creatinine 0.56, Est GFR (MDRD) Af Amer 142, Est GFR (MDRD) Non-Af 117, BUN/Creatinine Ratio 24.9 H, Glucose 119 H, Calcium 8.0 L, Triglycerides 326 H, Cholesterol 270 H, LDL Cholesterol 162 H, VLDL Cholesterol 65 H, HDL Cholesterol 43 12/15/20 07:10: Hemoglobin A1c 6.5 H Cardiac Cath: Left main Short, angiographically no obstructive atherosclerosis of the left main noted The left main coronary artery trifurcates into LAD, ramus intermedius and the left circumflex The left anterior descending artery is a large vessel reach all the way to the apex Angiographically there is nonobstructive atherosclerosis of around 10-20% of the proximal, mid left anterior descending Side branch which is a second diagonal branch had an ostial lesion of around 40 to 50% With a WARD-3 flow in the LAD and the side branches. The LAD also noted to have abundant septal branches The ramus intermedius is a small vessel at the minor mild ST mild stenosis/ostial ramus intermedius The left circumflex is moderate-sized vessel and angiographically had no obstructive atherosclerosis Right coronary artery is a large dominant vessel bifurcating into RPDA and posterolateral branch There is a lesion at the ostium of the RPDA which is around 40 to 50%. Conclusion and plan; This patient had nonobstructive coronary atherosclerosis Her presentation is acute coronary syndrome with mild change in the lateral leads with ST depression noted in the inferior, 2 3 and aVF leads. Radiography Diagnostic Testing: Radiology Impression Abdomen/Pelvis CT 12/14/20 20:03 IMPRESSION: 1. Mild fluid and gaseous distention of the mid jejunal and proximal ileal loops compatible with either focal enteritis or focal ileus. No zone of transition or obstruction is visualized. Normal remaining small bowel loops. Electronically Signed: Abdiaziz Hendricks MD at 21:49 EDT , Service support , Chest CTA 12/14/20 20:52 IMPRESSION: 1. Mild groundglass edema is present throughout both lungs. Reidentification of chronic interstitial thickening/fibrotic changes throughout both lungs. No focal consolidation is seen. No pleural effusion is present. 2. No demonstrated pulmonary embolism or arterial dissection. Electronically Signed: Abdiaziz Hendricks MD at 22:11 EDT , Service support , Documented by User: Dr. Johnie Mckinnon MD 12/15/20 13:32 Assessment & Plan Assessment/Plan (1) Acute coronary syndrome: (2) NSTEMI, initial episode of care: (3) Hyperlipidemia: PLAN: I independently examined this patient this morning reviewed the history review all the current lab evaluation including the cardiac biomarkers high sensitive troponin the chest x-ray the EKG her current medication and I reviewed and discussed the cardiac care plan and agree with the current documentation by the midlevel This patient is 60-year-old with a history of severe retrosternal chest pain radiating to the back had a CT scan which is negative for aortic dissection She was taken as an emergency to the [facility] as she had change in the EKG is mild ST elevation noted in lead I and aVL consistent with acute lateral injury does not qualify for the clinical diagnosis of a STEMI as it is only [address] depression noted in the inferior lead The cardiac catheterization showed nonobstructive atherosclerosis However subsequently her cardiac biomarker had been elevated She was treated with aspirin, atorvastatin, beta-simona metoprolol, will continue on Lovenox. And she had an echocardiogram will review the echocardiogram and will discuss further cardiac care plan Recommendation #1 we will continue on dual antiplatelet therapy with Plavix and aspirin 2. We will continue on high-dose statin and beta-simona at labetalol Patient also will be scheduled for phase 1 cardiac rehab program Patient to follow-up with them cardiology team at at [facility] for continuation of cardiac care plan. HPI Consult Data Date of Consult: 12/15/20 [facility] Medical History (Updated 12/15/20 @ 10:56 by Jocelyn SOARES, PA) Arthritis Chronic pain Debility Depression Former smoker GERD (gastroesophageal reflux disease) Hyperlipidemia Injury of fifth cervical spinal cord Insomnia Morbid obesity Neuropathic pain Rheumatoid arthritis Spinal cord stimulator status Home Medications esomeprazole magnesium 40 mg PO BID 05/06/20 [History Last Taken 12/14/20 09:00] hydroxyzine HCl 25 - 50 mg PO Q8H PRN PRN 05/06/20 [History Last Taken 12/14/20 09:00] morphine 15 mg PO Q12H 05/06/20 [History Last Taken 12/14/20 09:00] oxybutynin chloride 10 mg PO DAILY 05/06/20 [History Last Taken 12/14/20 09:00] oxycodone-acetaminophen 1 ea PO TID 05/06/20 [History Last Taken 12/14/20 09:00] paroxetine HCl 30 mg PO DAILY 05/06/20 [History Last Taken 12/14/20 09:00] prednisone 5 mg PO PRN 05/06/20 [History Last Taken Unknown] cholecalciferol (vitamin D3) [Vitamin D3] 2,000 unit PO DAILY 12/14/20 [History Last Taken 12/14/20 09:00] folic acid-vit B6-vit B12 [Folbee] 1 tab PO DAILY 12/14/20 [History Last Taken 12/14/20 09:00] metformin 500 mg PO DAILY 12/14/20 [History Last Taken 12/14/20 09:00] methocarbamol 750 mg PO TID 12/14/20 [History Last Taken 12/14/20 09:00] tizanidine 4 mg PO Q6H PRN PRN 12/14/20 [History Last Taken 12/14/20 09:00] Allergy/AdvReac Type Severity Reaction Status Date / Time adhesive Allergy blisters Verified 08/24/16 13:02 codeine AdvReac Nausea Verified 08/23/16 14:17 Family History (Updated 12/14/20 @ 21:[address] Jay Plascencia MD) Other Heart disease Surgical History (Updated 12/14/20 @ 23:22 by Oscar Perry) History of appendectomy Previous back surgery Social History Smoking Status: Former smoker Physical Exam Narrative Cardiac rhythm normal sinus rhythm Cardiovascular examination S1-S2 regular, no murmur no systolic or diastolic murmur Chest examination is clear to auscultation Examination abdomen is soft Examination lower extremity no clubbing no cyanosis no extremity edema Pedal pulses are palpable At the site of the right radial arteriotomy site showed palpable right radial artery with no complication. Charges/Coding Visit Charges Office Visits / Consults: 97135 IP Consult L4 Objective Data Cardiac rhythm underlying normal sinus rhythm. Lab / Micro Data Result Diagrams: 12/15/20 07:10 12/15/20 07:10
[2020-12-15] MEDS: Clopidogrel Bisulfate 75 MG Tablet PO (11:40)
[2020-12-15] MEDS: Metoprolol Tartrate 25 MG Tablet PO (11:40)
[2020-12-15] MEDS: Insulin Lispro 100 UNIT/ML INSULN.PEN SC (11:41)
[2020-12-15] MEDS: 0.9% Normal Saline 1,000 ML 75 ML IV ×2 (11:42→23:20)
[2020-12-15 11:51] LABS: Bedside Glucose 153 mg/dL (70-110)
--- NOTE | 2020-12-15 12:10 | CASEMGMT ---
RN ISABEL Face to Face with patient for initial transition planning/care coordination assessment. RN CM introduced self and role at [facility]. Patient lying in bed, alert and oriented, ex- at bedside. Patient willing to participate in assessment and is able to answer all questions appropriately. Care providers, pharmacy, and demographics verified. Patient wishes to discharge home, denies need for home health at this time. Patient states she has no further needs or concerns at this time. CM to follow for discharge planning needs that may arise. PCP: Robby Specialists: Jeffrey, spinal surgeon; [facility] Preferred Pharmacy: [facility] Insurance: [employer] Prescription Benefit: yes Living Will/HPOA: none LNOK: sister, ex- Living Arrangements: Patient lives with ex- in a single story home with 3-4 steps and railing to enter the home. Patient is independent at home. Transportation: ex- DME/HHC: patient states she has cane, walker, wheelchair, and grab bars at home. Patient has previously been to TCU. Patient has had [facility]HC in the past. Patient states she has no preferences for DME. Disposition Plan: Patient to discharge home with family support and follow-up plans in place. Elham HALL, RN, CM
--- NOTE | 2020-12-15 13:17 | PCM.PN.HOSP ---
Documented by User: Herson SOARES 12/15/20 13:45 Subjective Subjective Patient is a 60-year-old female comfortably resting in bed, alert and orient x3. Patient still endorses mild chest pain, although reports that this has improved from admission. Denies shortness of breath, palpitations, hemoptysis, sputum production, fever, chills, N/V/D. Objective Data Objective Data Vital Signs: Vital Signs Temp Pulse Resp BP Pulse Ox 96.5 F L 105 H 20 H 123/80 H 92 12/15/20 08:01 12/15/20 11:40 12/15/20 08:31 12/15/20 08:01 12/15/20 08:40 Oxygen Flow Rate (L/min) 2 Oxygen Delivery Method Nasal Cannula Weight: 195 lb 15.855 oz Body Mass Index (BMI) 35.8 Intake & Output: Intake and Output for Last 24 Hours 12/13/20 12/14/20 12/15/20 23:59 23:59 23:59 Intake Total 456.25 / 516.25 1070 / 1070 Output Total 250 / 250 Balance 456.25 / 516.25 820 / 820 Lab / Micro Data Result Diagrams: 12/15/20 07:10 12/15/20 07:10 Labs: Laboratory Results - last 24 hr 12/14/20 18:51: WBC 8.5, RBC 5.05, Hgb 13.8, Hct 43.3, MCV 85.7, MCH 27.3, MCHC 31.9 L, RDW Std Deviation 49.7 H, RDW Coeff of Valdemar 16.1 H, Plt Count 284, MPV 9.0, Immature Gran % (Auto) 0.700, Neut % (Auto) 75.8 H, Lymph % (Auto) 14.2 L, [place] % (Auto) 8.9, Eos % (Auto) 0.2, Baso % (Auto) 0.2, Absolute Neuts (auto) 6.4, Absolute Lymphs (auto) 1.21, Nucleated RBC % 0 12/14/20 18:51: Sodium 140, Potassium 3.5, Chloride 103, Carbon Dioxide 23.0, Anion Gap 14, BUN 13, Creatinine 0.69, Estim Creat Clear Calc 70.29, Est GFR (MDRD) Af Amer 112, Est GFR (MDRD) Non-Af 93, BUN/Creatinine Ratio 18.8, Glucose 163 H, Calcium 9.3, Total Bilirubin 0.30, AST 26, ALT 34, Alkaline Phosphatase 111, Troponin I High Sens 1613 H*, Total Protein 7.5, Albumin 3.7, Globulin 3.8, Albumin/Globulin Ratio 1.0, Lipase 71 L 12/14/20 18:51: B-Natriuretic Peptide 52.7 12/14/20 19:24: Urine Color Yellow, Urine Clarity Clear, Urine pH 6.0, Ur Specific [place] 1.020, Urine Protein 100 H, Urine Glucose (UA) 100 H, Urine Ketones 50 H, Urine Occult Blood 25 H, Urine Nitrite Negative, Urine Bilirubin Negative, Urine Urobilinogen Normal, Ur Leukocyte Esterase Negative, Urine RBC 0 SEEN, Urine WBC 0-5 SEEN, Ur Squamous Epith Cells 0 SEEN, Urine Bacteria 0 SEEN, Urine Mucus 0 SEEN 12/14/20 23:55: COVID-19 (JONI) Not Detected 12/15/20 01:12: POC Glucose 122 H 12/15/20 01:20: Troponin I High Sens 4291 H* 12/15/20 03:20: Troponin I High Sens 4783 H* 12/15/20 06:27: POC Glucose 125 H 12/15/20 07:10: WBC 11.9 H, RBC 4.84, Hgb 13.3, Hct 42.5, MCV 87.8, MCH 27.5, MCHC 31.3 L, RDW Std Deviation 54.4 H, RDW Coeff of [place]dem[place] 17.0 H, Plt Count 227, MPV 8.2, Immature Gran % (Auto) 0.600, Neut % (Auto) 65.3, Lymph % (Auto) 19.7, [place] % (Auto) 13.2 H, Eos % (Auto) 0.9, Baso % (Auto) 0.3, Absolute Neuts (auto) 7.8 H, Absolute Lymphs (auto) 2.34, Nucleated RBC % 0, Diff Path Review August12/15/20 07:10: Sodium 142, Potassium 3.5, Chloride 107, Carbon Dioxide 26.0, Anion Gap 9, BUN 14, Creatinine 0.56, Estim Creat Clear Calc 86.61, Est GFR (MDRD) Af Amer 142, Est GFR (MDRD) Non-Af 117, BUN/Creatinine Ratio 24.9 H, Glucose 119 H, Calcium 8.0 L, Triglycerides 326 H, Cholesterol 270 H, LDL Cholesterol 162 H, VLDL Cholesterol 65 H, HDL Cholesterol 43 12/15/20 07:10: Hemoglobin A1c 6.5 H 12/15/20 07:10: Troponin I High Sens 4723 H* 12/15/20 11:38: POC Glucose 153 H Micro: Microbiology 12/14/20 22:57 Mucosa - Nose SARS-CoV-2 Antigen (Rapid) - Final Radiography Diagnostic Testing: Radiology Impression Abdomen/Pelvis CT 12/14/20 20:03 IMPRESSION: 1. Mild fluid and gaseous distention of the mid jejunal and proximal ileal loops compatible with either focal enteritis or focal ileus. No zone of transition or obstruction is visualized. Normal remaining small bowel loops. Electronically Signed: Abdiaziz Hendricks MD at 21:49 EDT , Service support , Chest CTA 12/14/20 20:52 IMPRESSION: 1. Mild groundglass edema is present throughout both lungs. Reidentification of chronic interstitial thickening/fibrotic changes throughout both lungs. No focal consolidation is seen. No pleural effusion is present. 2. No demonstrated pulmonary embolism or arterial dissection. Electronically Signed: Abdiaziz Hendricks MD at 22:11 EDT , Service support , Physical Exam Const alert, oriented x3 and no apparent distress HEENT head/scalp atraumatic and moist oral mucous membranes Head and Scalp: normocephalic Eyes PERRL, EOMs intact bilaterally and conjunctivae normal Neck no lymphadenopathy, supple and no JVD Resp normal respiratory effort, no retractions and no use of accessory muscles Cardio regular rhythm, no murmurs and no JVD Rate: tachycardic GI normal to inspection, nondistended, normoactive bowel sounds, soft to palpation and non-tender Extremity normal to inspection, full ROM and no clubbing, cyanosis or edema Skin no rashes or lesions noted, no wounds and skin turgor normal Neuro CN's II-XII intact bilaterally Psych affect normal Assessment & Plan Assessment/Plan (1) NSTEMI, initial episode of care: (2) Acute coronary syndrome: PLAN: Day 2: See subjective. Discharge planning: Patient to be discharged home when medically ready, no home health care needs or additional therapies identified. 1) ACS/NSTEMI High-sensitivity troponins elevated throughout at 1613, 4291, 4783 and 4723. Catheterization demonstrated nonobstructive coronary atherosclerosis. Clopidogrel, metoprolol, Lovenox and lisinopril initiated per cardiology. Aspirin, atorvastatin and isosorbide continued. Echocardiogram results pending. 2) prediabetes Accu-Cheks with sliding scale insulin ordered. Home Metformin on hold. DVT prophylaxis - Lovenox Patient seen by Herson Hoyt PA-C, under the supervision of Dr. Urrutia. Documented by User: Dr. Jane Urrutia MD 12/15/20 13:54 Objective Data Lab / Micro Data Result Diagrams: 12/15/20 07:10 12/15/20 07:10 Charges/Coding Addendum Addendum: This patient was seen in conjunction with RODGER Cárdenas. I have independently interviewed and examined the patient and reviewed pertinent historical, laboratory, and other data. Please refer to RODGER Cárdenas's note for his patient's presentation, findings, and recommendations. I have reviewed and his note and concur with his documentation Patient was seen and examined. at the bedside. She complains of slight chest pressure. Denied any dizziness or palpitations Physical Exam: Gen: Comfortable, not pale, not jaundiced CVS:HS I +II, regular, no murmurs RESP: Diminished at lung bases GI: BS present and normal, soft, nontender, no palpable organs EXT:No edema ASSESSMENT: 1. Acute chest pain/unstable angina, status post cardiac cath, nonobstructive CAD found 2. Type II DM 3. Chronic pain syndrome Plan: Continue with aspirin, statin, isosorbide, Plavix, metoprolol lisinopril Follow-up on 2D echo Visit Charges Inpatient E&M: 17430 Subs Hosp L2
[2020-12-15] MEDS: Lisinopril 2.5 MG Tablet PO (13:42)
[2020-12-15 17:56] LABS: Bedside Glucose 121 mg/dL (70-110)
[2020-12-15] MEDS: Atorvastatin Calcium 80 MG Tablet PO (20:58)
[2020-12-15 21:31] LABS: Bedside Glucose 140 mg/dL (70-110)
[2020-12-16] VITALS (11 sets, daily range): BP systolic 84–130; BP diastolic 49–69; PULSE 88–99; RESP 12–18; TEMP 36.5–37.3; O2SAT 90–96
[2020-12-16] MEDS: Acetaminophen 325 MG Tablet 650 MG PO (03:48)
[2020-12-16 05:36] LABS: Absolute Lymphocyte Count 1.53 X10^3/uL (0.83-4.51); Absolute Neutrophil Count 5.9 X10^3/uL (2.0-7.7); Basophil# 0.02 X10^3/uL; Basophil% 0.2 % (0-1); Eosinophil# 0.13 X10^3/uL; Eosinophils% 1.5 % (0-5); Hematocrit 33.6 % (37-47); Hemoglobin 10.5 g/dL (12.0-15.0); Lymphocyte # 1.53 X10^3/ul (0.83-4.51); Lymphocyte % 17.6 % (19-41); Mean Corp Hgb Conc 31.3 g/dL (32-36); Mean Corpuscular Hgb 27.4 pg (27.0-32.0); Mean Corpuscular Volume 87.7 fL (81-99); Mean Platelet Vol. 8.2 fl (6.2-12.0); Monocyte# 1.05 X10^3/uL; Monocyte% 12.1 % (0-10); NRBC Flagged by Analyzer 0 % (0-5); Neutrophil # 5.92 X10^3/uL (2.7-7.7); Neutrophil % 68.1 % (47-70); Platelet Count 170 K/mm3 (150-450); RBC Distribution Width CV 16.8 % (11.6-14.6); Red Blood Count 3.83 M/mm3 (4.2-5.4); White Blood Count 8.7 K/mm3 (4.4-11.0)
[2020-12-16 06:11] LABS: Anion Gap 6 (5-15); BUN 14 mg/dL (7-18); BUN/Creat Ratio 34.9 RATIO (10-20); Calcium,Total 7.4 mg/dL (8.5-10.1); Chloride 106 mmol/L (98-107); EST Glomerular Filtration Rate 174 mL/min (>60); Est Glom Filt Rate - Afr Amer 210 mL/min (>60); Estimated Creatinine Clearance 121.25 ml/min; Glucose 129 mg/dL (74-106); Potassium 3.6 mmol/L (3.5-5.1); Sodium Level 137 mmol/L (136-145)
[2020-12-16] MEDS: 0.9% Normal Saline 1,000 ML 75 ML IV (06:43)
[2020-12-16] MEDS: Methocarbamol 750 MG Tablet PO (06:48)
[2020-12-16] MEDS: oxyCODONE 5 MG Tablet 7.5 MG PO (06:54)
[2020-12-16 07:00] LABS: Bedside Glucose 131 mg/dL (70-110)
[2020-12-16] MEDS: Aspirin 81 MG TAB.CHEW PO (08:18)
[2020-12-16 08:20] LABS: AST(SGOT) 29 U/L (15-37); Alanine Aminotransfer ALT/SGPT 24 U/L (13-56); Albumin, Serum 2.6 g/dL (3.2-5.0); Alkaline Phosphatase 75 U/L (45-117); Bilirubin, Direct 0.09 mg/dL (0.00-0.30); Globulin 2.8 g/dL (2.2-4.2); Protein, Total 5.4 g/dL (6.4-8.2)
[2020-12-16] MEDS: Metoprolol Tartrate 25 MG Tablet PO (09:59)
[2020-12-16] MEDS: Tolterodine Tartrate 2 MG CAP.SA PO (09:59)
[2020-12-16] MEDS: PARoxetine 10 MG Tablet 30 MG PO (09:59)
[2020-12-16] MEDS: morphine SR 15 MG Tablet PO (10:00)
[2020-12-16] MEDS: Isosorbide Mononitrate 30 MG Tablet PO (10:00)
[2020-12-16] MEDS: Enoxaparin 40 MG/0.4 ML Syringe SC (10:00)
[2020-12-16] MEDS: Clopidogrel Bisulfate 75 MG Tablet PO (10:00)
[2020-12-16] MEDS: Pantoprazole Sodium 40 MG Tablet PO (10:00)
[2020-12-16] MEDS: Cholecalciferol (VIT D3) 25 MCG TABLET (1,000 UNITS) 50 MCG PO (10:00)
[2020-12-16] MEDS: Lisinopril 2.5 MG Tablet PO (10:00)
--- NOTE | 2020-12-16 10:43 | DCINST_ITS ---
Discharge Instructions Diet Discharge Diet: No restrictions Activity Discharge Activity: Return to Normal Activity Weight Bearing Status: Weight bearing as tolerated Dressing / Incision Call your doctor if you observe: Fever of 101 or Higher, Numbness or Tingling, Shortness of breath, Dizziness, Chest pain, Increased palpitations (irregular heartbeat) and Calf discomfort Follow Up Care Please Follow Up With: Primary care provider When: Within the next two weeks. Test Results: Test results from this visit will be discussed in further detail at your follow-up appointment, if applicable. Discharge Plan Admission Admit Date/Time: 12/14/20 21:36 Primary Reason for Your Visit: Chest pain Attending Provider: Jane Urrutia Primary Care Provider: Keren Bustamante Discharge Orders/Prescriptions Prescriptions: New lisinopril 2.5 mg tablet 2.5 mg PO DAILY Qty: 30 RF: 0 clopidogrel [Plavix] 75 mg tablet 75 mg PO DAILY Qty: 30 RF: 0 metoprolol tartrate 25 mg tablet 25 mg PO BID Qty: 60 RF: 0 aspirin 81 mg tablet,chewable 81 mg PO DAILY Qty: 30 RF: 0 Continued prednisone 10 MG tablet 5 mg PO PRN RF: 0 oxybutynin chloride 10 MG tablet extended release 24hr 10 mg PO DAILY RF: 0 oxycodone-acetaminophen 1 EACH tablet 1 ea PO TID RF: 0 paroxetine HCl 20 MG tablet 30 mg PO DAILY RF: 0 esomeprazole magnesium 40 MG capsule 40 mg PO BID RF: 0 hydroxyzine HCl 25 MG tablet 25 - 50 mg PO Q8H PRN PRN (Reason: Itching) RF: 0 morphine 15 MG tablet 15 mg PO Q12H RF: 0 tizanidine 4 mg tablet 4 mg PO Q6H PRN PRN (Reason: Spasms) RF: 0 folic acid-vit B6-vit B12 [Folbee] 2.5-25-1 mg tablet 1 tab PO DAILY RF: 0 methocarbamol 750 mg tablet 750 mg PO TID RF: 0 metformin 500 mg tablet extended release 24 hr 500 mg PO DAILY RF: 0 cholecalciferol (vitamin D3) [Vitamin D3] 50 mcg (2,000 unit) tablet 2,000 unit PO DAILY RF: 0 Referrals / Follow Up: Keren Bustamante MD [Primary Care Provider] - Within 2 Weeks Jocelyn Cowan PA [PHYSICIAN EX ASSISTANT/PROGRAM DIRECTOR] - 12/22/20 9:30 am Disposition Disposition (needs filled in before D/C Order can be placed): Home, Self Care
--- NOTE | 2020-12-16 11:15 | PN.CARD_ITS ---
Documented by User: RODGER Buchanan 12/16/20 12:37 Subjective Subjective Patient is a 60-year-old female comfortably resting in bed, alert and orient x3. Patient still endorses mild chest pain, although reports that this has improved from admission. Denies shortness of breath, palpitations, hemoptysis, sputum production, fever, chills, N/V/D. Objective Data Vital Signs: Vital Signs Temp Pulse Resp BP Pulse Ox 98.4 F 96 12 130/69 H 94 12/16/20 09:51 12/16/20 09:59 12/16/20 09:51 12/16/20 09:59 12/16/20 10:45 Oxygen Flow Rate (L/min) 2 Oxygen Delivery Method Nasal Cannula Weight: 202 lb 13.204 oz Body Mass Index (BMI) 35.8 Intake & Output: Intake and Output for Last 24 Hours 12/14/20 12/15/20 12/16/20 23:59 23:59 23:59 Intake Total 456.25 / 516.25 1942.5 / 2342.5 1616.25 / 1616.25 Output Total 250 / 650 400 / 400 Balance 456.25 / 516.25 1692.5 / 1692.5 1216.25 / 1216.25 Lab / Micro Data Result Diagrams: 12/16/20 05:24 12/16/20 05:24 Labs: Laboratory Results - last 24 hr 12/15/20 11:38: POC Glucose 153 H 12/15/20 17:50: POC Glucose 121 H 12/15/20 20:46: POC Glucose 140 H 12/16/20 05:24: WBC 8.7, RBC 3.83 L, Hgb 10.5 L, Hct 33.6 L, MCV 87.7, MCH 27.4, MCHC 31.3 L, RDW Std Deviation 54.0 H, RDW Coeff of Valdemar 16.8 H, Plt Count 170, MPV 8.2, Immature Gran % (Auto) 0.500, Neut % (Auto) 68.1, Lymph % (Auto) 17.6 L , Dyer % (Auto) 12.1 H, Eos % (Auto) 1.5, Baso % (Auto) 0.2, Absolute Neuts (auto) 5.9, Absolute Lymphs (auto) 1.53, Nucleated RBC % 0 12/16/20 05:24: Sodium 137, Potassium 3.6, Chloride 106, Carbon Dioxide 25.0, Anion Gap 6, BUN 14, Creatinine 0.40 L, Estim Creat Clear Calc 121.25, Est GFR (MDRD) Af Amer 210, Est GFR (MDRD) Non-Af 174, BUN/Creatinine Ratio 34.9 H, Glucose 129 H, Calcium 7.4 L 12/16/20 05:24: Total Bilirubin 0.40, Direct Bilirubin 0.09, AST 29, ALT 24, Alkaline Phosphatase 75, Total Protein 5.4 L, Albumin 2.6 L, Globulin 2.8 12/16/20 06:45: POC Glucose 131 H Cardiology Labs/Tests 12/16/20 05:24: WBC 8.7, RBC 3.83 L, Hgb 10.5 L, Hct 33.6 L, MCV 87.7, MCH 27.4, MCHC 31.3 L, Plt Count 170, MPV 8.2, Immature Gran % (Auto) 0.500, Neut % (Auto) 68.1, Lymph % (Auto) 17.6 L, Dyer % (Auto) 12.1 H, Eos % (Auto) 1.5, Baso % (Auto) 0.2, Absolute Neuts (auto) 5.9, Nucleated RBC % 0 12/16/20 05:24: Sodium 137, Potassium 3.6, Chloride 106, Carbon Dioxide 25.0, Anion Gap 6, BUN 14, Creatinine 0.40 L, Est GFR (MDRD) Af Amer 210, Est GFR (MDRD) Non-Af 174, BUN/Creatinine Ratio 34.9 H, Glucose 129 H, Calcium 7.4 L 12/16/20 05:24: Total Bilirubin 0.40, Direct Bilirubin 0.09 Rhythm: SR Cardiac Cath: 12/14/20 Cardiac Cath: Left main Short, angiographically no obstructive atherosclerosis of the left main noted The left main coronary artery trifurcates into LAD, ramus intermedius and the left circumflex The left anterior descending artery is a large vessel reach all the way to the apex Angiographically there is nonobstructive atherosclerosis of around 10-20% of the proximal, mid left anterior descending Side branch which is a second diagonal branch had an ostial lesion of around 40 to 50% With a WARD-3 flow in the LAD and the side branches. The LAD also noted to have abundant septal branches The ramus intermedius is a small vessel at the minor mild ST mild stenosis/ostial ramus intermedius The left circumflex is moderate-sized vessel and angiographically had no obstructive atherosclerosis Right coronary artery is a large dominant vessel bifurcating into RPDA and posterolateral branch There is a lesion at the ostium of the RPDA which is around 40 to 50%. Conclusion and plan; This patient had nonobstructive coronary atherosclerosis Her presentation is acute coronary syndrome with mild change in the lateral leads with ST depression noted in the inferior, 2 3 and aVF leads. Echocardiogram 12/15/20: The estimated ejection fraction is EF 40-45% Mild MR Radiography Diagnostic Testing: Radiology Impression Echocardiogram 12/15/20 06:18 Interpretation Summary The estimated ejection fraction is EF 40-45% Mild MR Ordering Physician: Johnie Mckinnon Referring Physician: JAMES YEAGER Performed By: Mary Rutledge, RDCS, RVT Physical Exam Const alert and oriented x3 Nutritional Appearance: obese HEENT normocephalic, hearing grossly normal bilaterally, external ears normal, EAC's normal, external nose normal and nasal mucous membranes and turbinates normal Eyes PERRL, EOMs intact bilaterally, conjunctivae normal, no scleral icterus and normal visual sotelo by confrontation Neck full ROM, no lymphadenopathy, supple and no JVD Chest inspection of chest normal Resp normal respiratory effort, normal air movement and clear to auscultation bilaterally Cardio regular rate, regular rhythm, S1 normal heart sound and S2 normal heart sound; Negative for no murmurs, no rub or no gallops GI normal to inspection, nondistended, normoactive bowel sounds, soft to palpation, non-tender and non-distended Assessment & Plan Assessment/Plan (1) NSTEMI, initial episode of care: (2) Acute coronary syndrome: (3) Hyperlipidemia: (4) Essential hypertension: (5) Decreased left ventricular function: PLAN: * Pt had nonobstructive CAD based on cath, will refer to Cardiac rehab on OP basis * in regards to her CAD: Will continue with ASA, Atorvastatin, Isosorbide, Plavix, metoprolol and lisinopril * In regards to her HTN:will continue to monitor her BP/HR readings at home * In regards to her decreased LV function: will continue with BB and lisinopril, plan is to increase as tolerated on an OP basis. Will plan on repeating her echo on OP basis to see if EF has improved. * In regards to her Hyperlipidemia: will plan on following her lipids on an OP basis Documented by User: Dr. Johnie Mckinnon MD 12/16/20 13:49 Lab / Micro Data Result Diagrams: 12/16/20 05:24 12/16/20 05:24 Assessment & Plan Assessment/Plan (1) NSTEMI, initial episode of care: (2) Acute coronary syndrome: (3) Hyperlipidemia: (4) Decreased left ventricular function: PLAN: I independently evaluated this 60-year-old patient, examined, reviewed all her evaluation in the hospital including the EKG, cardiac telemetry, lab tests, chest x-rays and current medication patient presented with symptoms of chest pain with a clinical diagnosis of non- ST elevation MO and had mildly reduced LV systolic dysfunction I agree with the midlevel documentation and cardiac care plan and medication patient to follow-up with the [facility] cardiovascular team for continuation of cardiac care plan.
--- NOTE | 2020-12-16 11:15 | PHA.DC.MC ---
Pharmacy Service has performed discharge medication reconciliation and counseling for this patient. The patient was counseled on the following discharge medications and changes in medications for homegoing were reviewed. 1. ASPIRIN 2. PLAVIX 3. LOPRESSOR 4. LISINOPRIL The Reason for Use, instructions for use, and potential side effects were reviewed for all new medications. The patient's questions regarding all of their medications were answered. The patient was able to verbally demonstrate an understanding of their discharge medications. Home Medications esomeprazole magnesium 40 mg PO BID 05/06/20 hydroxyzine HCl 25 - 50 mg PO Q8H PRN PRN 05/06/20 morphine 15 mg PO Q12H 05/06/20 oxybutynin chloride 10 mg PO DAILY 05/06/20 oxycodone-acetaminophen 1 ea PO TID 05/06/20 paroxetine HCl 30 mg PO DAILY 05/06/20 prednisone 5 mg PO PRN 05/06/20 cholecalciferol (vitamin D3) [Vitamin D3] 2,000 unit PO DAILY 12/14/20 folic acid-vit B6-vit B12 [Folbee] 1 tab PO DAILY 12/14/20 metformin 500 mg PO DAILY 12/14/20 methocarbamol 750 mg PO TID 12/14/20 tizanidine 4 mg PO Q6H PRN PRN 12/14/20 aspirin 81 mg PO DAILY #30 tab 12/16/20 clopidogrel [Plavix] 75 mg PO DAILY #30 tab 12/16/20 lisinopril 2.5 mg PO DAILY #30 tab 12/16/20 metoprolol tartrate 25 mg PO BID #60 tab 12/16/20 The patient's discharge medication list was reviewed for discrepancies and discrepancies were resolved.
[2020-12-16] MEDS: Insulin Lispro 100 UNIT/ML INSULN.PEN SC (11:40)
[2020-12-16 11:51] LABS: Bedside Glucose 157 mg/dL (70-110)
--- NOTE | 2020-12-16 12:10 | DS.PCM_ITS ---
Documented by User: Herson SOARES 12/16/20 12:26 Providers Date of Admission: 12/14/20 Primary Care Physician: Dr. Keren Yeager MD Reason For Visit: STEMI Diagnosis Discharge Diagnosis (1) NSTEMI, initial episode of care: Status: Acute Code(s): I21.4 - Non-ST elevation (NSTEMI) myocardial infarction (2) Acute coronary syndrome: Status: Acute Code(s): I24.9 - Acute ischemic heart disease, unspecified (3) Hyperlipidemia: Status: Acute Code(s): E78.5 - Hyperlipidemia, unspecified (4) Essential hypertension: Status: Acute Code(s): I10 - Essential (primary) hypertension (5) Decreased left ventricular function: Status: Acute Code(s): I51.9 - Heart disease, unspecified Medications at Discharge Home Medications esomeprazole magnesium 40 mg PO BID 05/06/20 hydroxyzine HCl 25 - 50 mg PO Q8H PRN PRN 05/06/20 morphine 15 mg PO Q12H 05/06/20 oxybutynin chloride 10 mg PO DAILY 05/06/20 paroxetine HCl 30 mg PO DAILY 05/06/20 cholecalciferol (vitamin D3) [Vitamin D3] 2,000 unit PO DAILY 12/14/20 folic acid-vit B6-vit B12 [Folbee] 1 tab PO DAILY 12/14/20 metformin 500 mg PO DAILY 12/14/20 methocarbamol 750 mg PO TID 12/14/20 tizanidine 4 mg PO Q6H PRN PRN 12/14/20 aspirin 81 mg PO DAILY #30 tab 12/16/20 carvedilol [Coreg] 3.125 mg PO BID #60 tab 12/16/20 clopidogrel [Plavix] 75 mg PO DAILY #30 tab 12/16/20 lisinopril 2.5 mg PO DAILY #30 tab 12/16/20 oxycodone-acetaminophen 1 tab PO TID PRN 12/16/20 prednisone 5 mg PO DAILY PRN 12/16/20 Hospital Course Procedures Cardiac catheterization and Transthoracic echo Summary of Care Provided Minutes Spent on Discharge: 35 Hospital Course: Disposition: Patient to be discharged home, no additional therapies or home health care needs identified. 1) ACS/NSTEMI High-sensitivity troponins elevated throughout at 1613, 4291, 4783 and 4723. Catheterization demonstrated nonobstructive coronary atherosclerosis. Echocardiogram demonstrated mild tricuspid regurgitation and an estimated EF of 40 to 45%. Clopidogrel, metoprolol, Lovenox and lisinopril initiated per cardiology. Aspirin, atorvastatin and isosorbide continued. 2) prediabetes Continue home diabetic regimen. Patient seen by Herson Hoyt PA-C, under the supervision of Dr. Urrutia. Physical Exam Narrative Patient is a 60-year-old female comfortably resting in bed, alert and orient x3. Patient reports improvement of her chest pain from admission, although reports that it is still mildly present. Denies shortness of breath, palpitations, hemoptysis, sputum production, fever, chills, N/V/D. Const alert, oriented x3 and no apparent distress HEENT normocephalic, head/scalp atraumatic, hearing grossly normal bilaterally and m oist oral mucous membranes Eyes PERRL, EOMs intact bilaterally and conjunctivae normal Neck no lymphadenopathy, supple and no JVD Resp normal respiratory effort, no retractions, no use of accessory muscles and clear to auscultation bilaterally Cardio regular rate, regular rhythm, no murmurs and no JVD GI normal to inspection, nondistended, normoactive bowel sounds, soft to palpation and non-tender Extremity normal to inspection, full ROM and no clubbing, cyanosis or edema Skin no rashes or lesions noted, no wounds and skin turgor normal Neuro CN's II-XII intact bilaterally Psych affect normal Weight / BMI Weight Weight: 202 lb 13.204 oz Body Mass Index (BMI) 35.8 ABG / Lab / Microbiology Data Result Diagrams: 12/16/20 05:24 12/16/20 05:24 Laboratory: Laboratory Results - last 24 hr 12/15/20 17:50: POC Glucose 121 H 12/15/20 20:46: POC Glucose 140 H 12/16/20 05:24: WBC 8.7, RBC 3.83 L, Hgb 10.5 L, Hct 33.6 L, MCV 87.7, MCH 27.4, MCHC 31.3 L, RDW Std Deviation 54.0 H, RDW Coeff of Valdemar 16.8 H, Plt Count 170, MPV 8.2, Immature Gran % (Auto) 0.500, Neut % (Auto) 68.1, Lymph % (Auto) 17.6 L , Irwin % (Auto) 12.1 H, Eos % (Auto) 1.5, Baso % (Auto) 0.2, Absolute Neuts (auto) 5.9, Absolute Lymphs (auto) 1.53, Nucleated RBC % 0 12/16/20 05:24: Sodium 137, Potassium 3.6, Chloride 106, Carbon Dioxide 25.0, Anion Gap 6, BUN 14, Creatinine 0.40 L, Estim Creat Clear Calc 121.25, Est GFR (MDRD) Af Amer 210, Est GFR (MDRD) Non-Af 174, BUN/Creatinine Ratio 34.9 H, Glucose 129 H, Calcium 7.4 L 12/16/20 05:24: Total Bilirubin 0.40, Direct Bilirubin 0.09, AST 29, ALT 24, Alkaline Phosphatase 75, Total Protein 5.4 L, Albumin 2.6 L, Globulin 2.8 12/16/20 06:45: POC Glucose 131 H 12/16/20 11:39: POC Glucose 157 H Microbiology: Microbiology 12/14/20 22:57 Mucosa - Nose SARS-CoV-2 Antigen (Rapid) - Final Radiography Diagnostic Testing: Radiology Impression Echocardiogram 12/15/20 06:18 Interpretation Summary The estimated ejection fraction is EF 40-45% Mild MR Ordering Physician: Johnie Mckinnon Referring Physician: KEREN YEAGER Performed By: Mary Rutledge, KANDIS, RVT D/C Instructions Discharge Diet: No restrictions Weight Bearing Status: Weight bearing as tolerated Call your doctor if you observe: Fever of 101 or Higher, Numbness or Tingling, Shortness of breath, Dizziness, Chest pain, Increased palpitations (irregular heartbeat) and Calf discomfort Please Follow Up With: Primary care provider When: Within the next two weeks. Meaningful Use Info Meaningful Use Diagnoses (Choose all that apply): AMI AMI/Post PCI/Angioplasty Aspirin given w/in 24hrs of arrival?: Yes ASA at discharge?: Yes Statins at discharge?: Yes Reuben/ARB at discharge?: Yes Beta Emily at discharge?: Yes Done w/ Acute TN measure.: Yes Discharge Plan Admission Admit Date/Time: 12/14/20 21:36 Primary Reason for Your Visit: Chest pain Attending Provider: Jane Urrutia Primary Care Provider: Keren Yeager Discharge Orders/Prescriptions Prescriptions: New lisinopril 2.5 mg tablet 2.5 mg PO DAILY Qty: 30 RF: 0 clopidogrel [Plavix] 75 mg tablet 75 mg PO DAILY Qty: 30 RF: 0 aspirin 81 mg tablet,chewable 81 mg PO DAILY Qty: 30 RF: 0 carvedilol [Coreg] 3.125 mg tablet 3.125 mg PO BID Qty: 60 RF: 0 Continued oxybutynin chloride 10 MG tablet extended release 24hr 10 mg PO DAILY RF: 0 paroxetine HCl 20 MG tablet 30 mg PO DAILY RF: 0 esomeprazole magnesium 40 MG capsule 40 mg PO BID RF: 0 hydroxyzine HCl 25 MG tablet 25 - 50 mg PO Q8H PRN PRN (Reason: Itching) RF: 0 morphine 15 MG tablet 15 mg PO Q12H RF: 0 tizanidine 4 mg tablet 4 mg PO Q6H PRN PRN (Reason: Spasms) RF: 0 folic acid-vit B6-vit B12 [Folbee] 2.5-25-1 mg tablet 1 tab PO DAILY RF: 0 methocarbamol 750 mg tablet 750 mg PO TID RF: 0 metformin 500 mg tablet extended release 24 hr 500 mg PO DAILY RF: 0 cholecalciferol (vitamin D3) [Vitamin D3] 50 mcg (2,000 unit) tablet 2,000 unit PO DAILY RF: 0 oxycodone-acetaminophen 7.5-325 mg tablet 1 tab PO TID PRN (Reason: Pain) RF: 0 prednisone 5 mg tablet 5 mg PO DAILY PRN (Reason: RHEUMATOID ARTHRITIS FLARE) RF: 0 Referrals / Follow Up: Keren Yeager MD [Primary Care Provider] - Within 2 Weeks Jocelyn Cowan PA [PHYSICIAN SOUP PERSON] - 12/22/20 9:30 am Disposition Disposition (needs filled in before D/C Order can be placed): Home, Self Care Documented by User: Dr. Jane Urrutia MD 12/16/20 15:31 Providers Date of Admission: 12/14/20 Reason For Visit: STEMI Medications at Discharge Home Medications esomeprazole magnesium 40 mg PO BID 05/06/20 hydroxyzine HCl 25 - 50 mg PO Q8H PRN PRN 05/06/20 morphine 15 mg PO Q12H 05/06/20 oxybutynin chloride 10 mg PO DAILY 05/06/20 paroxetine HCl 30 mg PO DAILY 05/06/20 cholecalciferol (vitamin D3) [Vitamin D3] 2,000 unit PO DAILY 12/14/20 folic acid-vit B6-vit B12 [Folbee] 1 tab PO DAILY 12/14/20 metformin 500 mg PO DAILY 12/14/20 methocarbamol 750 mg PO TID 12/14/20 tizanidine 4 mg PO Q6H PRN PRN 12/14/20 aspirin 81 mg PO DAILY #30 tab 12/16/20 carvedilol [Coreg] 3.125 mg PO BID #60 tab 12/16/20 clopidogrel [Plavix] 75 mg PO DAILY #30 tab 12/16/20 lisinopril 2.5 mg PO DAILY #30 tab 12/16/20 oxycodone-acetaminophen 1 tab PO TID PRN 12/16/20 prednisone 5 mg PO DAILY PRN 12/16/20 ABG / Lab / Microbiology Data Result Diagrams: 12/16/20 05:24 12/16/20 05:24 Discharge Plan Admission Admit Date/Time: 12/14/20 21:36 Primary Reason for Your Visit: Chest pain Attending Provider: Jane Urrutia Primary Care Provider: Keren Yeager Discharge Orders/Prescriptions Prescriptions: New lisinopril 2.5 mg tablet 2.5 mg PO DAILY Qty: 30 RF: 0 clopidogrel [Plavix] 75 mg tablet 75 mg PO DAILY Qty: 30 RF: 0 aspirin 81 mg tablet,chewable 81 mg PO DAILY Qty: 30 RF: 0 carvedilol [Coreg] 3.125 mg tablet 3.125 mg PO BID Qty: 60 RF: 0 Continued oxybutynin chloride 10 MG tablet extended release 24hr 10 mg PO DAILY RF: 0 paroxetine HCl 20 MG tablet 30 mg PO DAILY RF: 0 esomeprazole magnesium 40 MG capsule 40 mg PO BID RF: 0 hydroxyzine HCl 25 MG tablet 25 - 50 mg PO Q8H PRN PRN (Reason: Itching) RF: 0 morphine 15 MG tablet 15 mg PO Q12H RF: 0 tizanidine 4 mg tablet 4 mg PO Q6H PRN PRN (Reason: Spasms) RF: 0 folic acid-vit B6-vit B12 [Folbee] 2.5-25-1 mg tablet 1 tab PO DAILY RF: 0 methocarbamol 750 mg tablet 750 mg PO TID RF: 0 metformin 500 mg tablet extended release 24 hr 500 mg PO DAILY RF: 0 cholecalciferol (vitamin D3) [Vitamin D3] 50 mcg (2,000 unit) tablet 2,000 unit PO DAILY RF: 0 oxycodone-acetaminophen 7.5-325 mg tablet 1 tab PO TID PRN (Reason: Pain) RF: 0 prednisone 5 mg tablet 5 mg PO DAILY PRN (Reason: RHEUMATOID ARTHRITIS FLARE) RF: 0 Referrals / Follow Up: Keren Yeager MD [Primary Care Provider] - Within 2 Weeks Jocelyn Cowan PA [PHYSICIAN SOUP PERSON] - 12/22/20 9:30 am Disposition Disposition (needs filled in before D/C Order can be placed): Home, Self Care Charges/Coding Addendum Addendum: This patient was seen in conjunction with RODGER Cárdenas. I have independently interviewed and examined the patient and reviewed pertinent historical, laboratory, and other data. Please refer to RODGER Cárdenas's note for his patient's presentation, findings, and recommendations. I have reviewed and his note and concur with his documentation 60-year-old female with multiple comorbidities who comes in with complaints of severe retrosternal, epigastric and back pain, associated with shortness of breath, nausea, vomiting, diarrhea. EKG has show some minor ST segment elevation in lead I, aVL and ST depression in inferior leads. CTA of the chest showed no aortic dissection. Patient had elevated troponins, initially more than 1613 to 4723. Patient underwent emergent cardiac catheterization that showed nonobstructive coronaries. 2D echo showed an EF of 40 to 45%. Patient was followed by cardiology. She was discharged on Plavix, metoprolol, lisinopril as well as aspirin, Plavix and isosorbide Outpatient cardiac rehab was recommended. Patient will follow up with cardiology in the outpatient. On the day of discharge, she was seen and examined. Her pain was much improved. She has chronic pain syndrome. On multiple pain meds. Physical Exam: Gen: Comfortable, not pale, not jaundiced CVS:HS I +II, regular, no murmurs RESP: Diminished at lung bases GI: BS present and normal, soft, nontender, no palpable organs EXT:No edema Visit Charges Inpatient E&M: 94769 Disch Hosp
--- NOTE | 2020-12-16 12:56 | CASEMGMT ---
Per Cassidy GARLAND, pt does not qualify for home oxygen at discharge. Casey GARLAND CM
[2020-12-16 14:01] LABS: Pathologist Review Reviewed
== END 2020-12-16 13:16 | disposition home or self-care (01) | DRG 281 ==
LOC: ED 21:21 → ICU 21:45 → PCU 12-15 01:41
PROVIDERS: Nurse Practitioner Family; Physician Assistant; Admitting Provider Hospitalist; Emergency Provider Emergency Medicine; PCP Internal Medicine; Referring Provider Internal Medicine Interventional Cardiology; Visit Provider Internal Medicine
DX: I21.4 Non-ST elevation (NSTEMI) myocardial infarction (principal); I50.1 Left ventricular failure, unspecified; I11.0 Hypertensive heart disease with heart failure; I24.9 Acute ischemic heart disease, unspecified; I25.110 Atherosclerotic heart disease of native coronary artery with unstable angina pectoris; E78.5 Hyperlipidemia, unspecified; G89.4 Chronic pain syndrome; R73.03 Prediabetes; Z79.84 Long term (current) use of oral hypoglycemic drugs; Z79.899 Other long term (current) drug therapy; Z87.891 Personal history of nicotine dependence
CPT/HCPCS: 36415; 71275; 74177; 80048; 80053; 80061; 80076; 81001; 82962; 83036; 83690; 83880; 84484; 85025; 87426; 87635; 93005; 93306; 93454; 97802; 99152; 99251; 99285; J7030; J7040; J7050; Q9957; Q9967; U0005; A4216; C1769; C1887; C1894; C8929; G0463; J2405; J3490; U0003

== ENCOUNTER 2020-12-18 10:20 | Inpatient (IN) | payer MEDICARE, SELFPAY ==
[2020-12-18] VITALS (21 sets, daily range): BP systolic 96–161; BP diastolic 51–91; PULSE 75–122; RESP 12–101; TEMP 36.6–37.2; O2SAT 26–99; BMI 37.8; BMI 36.3
--- NOTE | 2020-12-18 10:30 | EKG12_ITS ---
Test Reason : CP Blood Pressure : / mmHG Vent. Rate : 071 BPM Atrial Rate : 071 BPM P-R Int : 148 ms QRS Dur : 072 ms QT Int : 402 ms P-R-T Axes : 046 069 040 degrees QTc Int : 436 ms Normal sinus rhythm Normal ECG Confirmed by ARABELLA RUBIO MD ([id number]), script editor SHIREEN HORTON ([id number]) on 12/22/2020 10:38:00 AM Referred By: REGINA Confirmed By:ARABELLA RUBIO MD
--- NOTE | 2020-12-18 10:33 | EKG12_ITS ---
Test Reason : STEMI Blood Pressure : / mmHG Vent. Rate : 105 BPM Atrial Rate : 105 BPM P-R Int : 142 ms QRS Dur : 070 ms QT Int : 354 ms P-R-T Axes : 051 048 017 degrees QTc Int : 467 ms AGE AND GENDER SPECIFIC ECG ANALYSIS Sinus tachycardia Inferior Ischemia Abnormal ECG When compared with ECG of 14-DEC-2020 23:37, MANUAL COMPARISON REQUIRED, DATA IS UNCONFIRMED Confirmed by JOANNE WOLFE, ARABELLA ([id number]), newspaper or periodical editor SHIREEN HORTON ([id number]) on 12/19/2020 9:17:43 AM Referred By: Johnie Mckinnon Confirmed By:ARABELLA RUBIO MD
--- NOTE | 2020-12-18 10:33 | CT_ITS ---
STUDY: CTA CHEST REASON FOR EXAM: Female, 60 years old. aortic diss RADIATION DOSAGE (If Supplied By Facility): CTDIvol = ( 19.79 ) mGy, DLP = ( 493.15 ) mGycm TECHNIQUE: The examination was performed with the intravenous administration of IV 100mL Isovue-370. Post-processing of the angiographic images was performed, with multiplanar reformation and 3D reconstruction. Individualized dose optimization techniques were used for this CT. COMPARISON: 12/11/2020 FINDINGS: Pulmonary artery and its branches demonstrate no evidence of filling defects to suggest acute pulmonary embolism. Moderate size bilateral pleural effusions with bibasilar compressive atelectasis and/or airspace disease. Borderline enlarged mediastinal lymph nodes. No evidence for aortic dissection. Cardiomegaly with coronary vascular calcifications. Small pericardial effusion. Patchy bilateral groundglass densities noted which can be seen in the setting of pulmonary edema. Other possibly simply include atypical pneumonia. The trachea and the mainstem bronchi appear patent. Narrowing of the mainstem bronchi however seen Small hiatal hernia. Hepatic steatosis atrophy of the pancreas. The Osseous structures demonstrate no acute abnormalities. Spinal stimulator device leads are seen at approximately T9 level. Mild wedging of the thoracic vertebrae with scattered Schmorl''s nodes and accentuated thoracic kyphotic curvature. Spondylotic changes with multilevel neural foraminal narrowing. IMPRESSION: Cardiomegaly with coronary vascular calcifications and moderate size bilateral pleural effusions with bibasilar compressive atelectasis. Patchy bilateral groundglass densities which can be seen in the setting of pulmonary edema. Other differential considerations include atypical pneumonia. Overall findings appear worsened since previous CT angiogram Electronically Signed: Oswaldo Alonso MD at 12:41 EDT Tel , Service support , CT/CTA Chest W/WO Contrast
[2020-12-18] MEDS: Ondansetron 4 MG/2 ML Vial IV (10:48)
[2020-12-18] MEDS: Morphine 4 MG/ML Syringe IV ×2 (10:48→12:55)
[2020-12-18] MEDS: 0.9% Normal Saline 1,000 ML 150 ML IV (10:49)
--- NOTE | 2020-12-18 10:49 | EDS_ITS ---
HPI History of Present Illness Chief Complaint: Chest Pain Informant: patient Onset/Context/Timing Onset: Today Activity at onset: gradual Quality: Positive for Heaviness and Sharp Location: Substernal Current Severity: Severe Maximum Severity: Severe Associated Symptoms: Positive for Dyspnea Narrative Narrative: Patient presents via EMS secondary to chest pain. Patient was admitted to the hospital through the secondary to NSTEMI. Cardiac catheterization showed nonobstructive coronaries. Patient states since discharge she has had continued mild pain but this morning pain worsened significantly. She does feel short of breath. She tried her home medications without improvement. PFSH [facility] Medical History Arthritis Chronic pain Debility Decreased left ventricular function Depression Essential hypertension Former smoker GERD (gastroesophageal reflux disease) Hyperlipidemia Injury of fifth cervical spinal cord Insomnia Morbid obesity Neuropathic pain Rheumatoid arthritis Spinal cord stimulator status Home Medications esomeprazole magnesium 40 mg PO BID 05/06/20 [History Last Taken 12/14/20 09:00] hydroxyzine HCl 25 - 50 mg PO Q8H PRN PRN 05/06/20 [History Last Taken 12/14/20 09:00] morphine 15 mg PO Q12H 05/06/20 [History Last Taken 12/14/20 09:00] oxybutynin chloride 10 mg PO DAILY 05/06/20 [History Last Taken 12/14/20 09:00] paroxetine HCl 30 mg PO DAILY 05/06/20 [History Last Taken 12/14/20 09:00] cholecalciferol (vitamin D3) [Vitamin D3] 2,000 unit PO DAILY 12/14/20 [History Last Taken 12/14/20 09:00] folic acid-vit B6-vit B12 [Folbee] 1 tab PO DAILY 12/14/20 [History Last Taken 12/14/20 09:00] metformin 500 mg PO DAILY 12/14/20 [History Last Taken 12/14/20 09:00] methocarbamol 750 mg PO TID 12/14/20 [History Last Taken 12/14/20 09:00] tizanidine 4 mg PO Q6H PRN PRN 12/14/20 [History Last Taken 12/14/20 09:00] aspirin 81 mg PO DAILY #30 tab 12/16/20 [Rx Last Taken Unknown] carvedilol [Coreg] 3.125 mg PO BID #60 tab 12/16/20 [Rx Last Taken Unknown] clopidogrel [Plavix] 75 mg PO DAILY #30 tab 12/16/20 [Rx Last Taken Unknown] lisinopril 2.5 mg PO DAILY #30 tab 12/16/20 [Rx Last Taken Unknown] oxycodone-acetaminophen 1 tab PO TID PRN 12/16/20 [History Last Taken Unknown] prednisone 5 mg PO DAILY PRN 12/16/20 [History Last Taken Unknown] Allergy/AdvReac Type Severity Reaction Status Date / Time adhesive Allergy blisters Verified 12/18/20 10:21 codeine AdvReac Nausea Verified 12/18/20 10:21 Family History Father CAD (coronary artery disease) Other Heart disease Surgical History History of appendectomy Previous back surgery Social History Smoking Status: Former smoker ROS ROS ED Constitutional Constitutional ED: Denies chills or fever(s) Eyes Eyes: Denies change in vision ENT ENT ED: Denies sore throat Cardiovascular Cardiovascular: Reports chest pain Respiratory/Chest Respiratory/Chest: Reports dyspnea; Denies cough Gastrointestinal Gastrointestinal: Denies abdominal pain, diarrhea, nausea or vomiting Genitourinary Genitourinary ED: Denies dysuria Musculoskeletal Musculoskeletal: Reports back pain Integumentary Denies rash Neurologic Neurologic: Denies headache(s) or weakness Psychiatric Psychiatric: Reports anxiety Endocrine Endocrinology: Denies polyuria Hematologic/Lymphatic Hematologic/Lymphatic: Denies easy bleeding or easy bruising Allergic/Immunologic Allergic/Immunologic ED: Denies urticaria EXAM Physical Exam Const Vital Signs: 12/18/20 10:21 12/18/20 12:36 12/18/20 13:00 Temperature 98.9 F Temperature Source Temporal Pulse Rate 75 77 91 Respiratory Rate 24 H 15 101 H Blood Pressure 161/87 H Blood Pressure Mean 111 Pulse Ox 95 94 26 Oxygen Delivery Method Room Air Room Air Fraction of Inspired Oxygen (FIO2) 50 12/18/20 13:09 12/18/20 13:55 12/18/20 14:08 Temperature Temperature Source Pulse Rate 101 H 91 Respiratory Rate 26 H 18 Blood Pressure 96/60 Blood Pressure Mean 72 Pulse Ox 98 96 Oxygen Delivery Method Bi-pap Fraction of Inspired Oxygen (FIO2) 40 Positive well nourished and well developed General Appearance ED: well developed HEENT Reports normocephalic and head/scalp atraumatic Eyes PERRL and EOMs intact bilaterally Neck supple Chest Wall inspection of chest normal and palpation of chest normal Resp normal respiratory effort and clear to auscultation bilaterally Cardio regular rate and regular rhythm GI normal to inspection, nondistended, normoactive bowel sounds Palpation: soft Extremity normal to inspection Neuro oriented x3 and no sensory deficits noted Sensorium / Orientation: alert Motor Exam: strength 5/5 throughout Psych Mood & Affect: anxious Skin no rashes or lesions noted Heart Score History: Moderately Suspicious ECG: Normal Age: >45 - <65 years Risk Factors: 1 or 2 Risk Factors Troponin: >/=3 x Normal Limit Score: 5 MDM MDM MDM Narrative Medical decision making narrative: Patient was given morphine and Zofran for pain. She taken her cardiac medications this morning. Lab work, EKG, CTA chest obtained. Lab Data Attestation: I reviewed the patient's lab results. Labs: Laboratory Results - last 24 hr 12/18/20 12/18/20 12/18/20 10:40 10:40 10:40 WBC 7.5 RBC 4.09 L Hgb 11.3 L Hct 36.1 L MCV 88.3 MCH 27.6 MCHC 31.3 L RDW Std Deviation 53.1 H RDW Coeff of Valdemar 16.5 H Plt Count 206 MPV 8.9 Immature Gran % (Auto) 0.400 Neut % (Auto) 74.2 H Lymph % (Auto) 14.7 L [place] % (Auto) 8.0 Eos % (Auto) 2.4 Baso % (Auto) 0.3 Absolute Neuts (auto) 5.6 Absolute Lymphs (auto) 1.11 Nucleated RBC % 0 Sodium 140 Potassium 3.5 Chloride 105 Carbon Dioxide 28.0 Anion Gap 7 BUN 22 H Creatinine 0.52 L Estim Creat Clear Calc 93.27 Est GFR (MDRD) Af Amer 155 Est GFR (MDRD) Non-Af 128 BUN/Creatinine Ratio 42.1 H Glucose 116 H Calcium 8.7 Troponin I High Sens 335 H* B-Natriuretic Peptide 707.7 H Radiography Diagnostic Testing: Radiology Impression Chest CTA 12/18/20 10:33 IMPRESSION: Cardiomegaly with coronary vascular calcifications and moderate size bilateral pleural effusions with bibasilar compressive atelectasis. Patchy bilateral groundglass densities which can be seen in the setting of pulmonary edema. Other differential considerations include atypical pneumonia. Overall findings appear worsened since previous CT angiogram EKG Initial EKG: Attestation: I personally reviewed and interpreted this EKG as follows: Interpretation: Sinus Rhythm (Sinus at [address] change.) Follow-up EKG: Attestation: I personally reviewed and interpreted this EKG as follows: Interpretation: Sinus Tachycardia (Sinus tach at 113. Baseline artifact noted. No obvious ST change.) Treatment and Re-Evaluation Comments:: Patient did improve significantly with morphine initially. She went to CT and back. She needed to use the restroom and after trying to get up became significantly dyspneic, diaphoretic, complaining of worsened chest pain. Heart rate was in the 120s. On a nonrebreather O2 sat was in the 90s. I was able to check the CT report and noted bilateral pleural effusions with pulmonary edema. Patient was placed on BiPAP and given 80 mg of IV Lasix. At this time patient is much more comfortable. O2 sats are in the high 90s and heart rate is in the 80s. On review of her recent hospitalization her echocardiogram showed an EF of 40 to 45%. Will discuss with the hospitalist for admission. Discharge Plan Dx/Rx/DC Orders Clinical Impression: Pleural effusion, Pulmonary edema Disposition Disposition: Acute Care Hospital [facility] Discharge Date/Time: 12/18/20 16:23
[2020-12-18 10:50] LABS: Absolute Lymphocyte Count 1.11 X10^3/uL (0.83-4.51); Absolute Neutrophil Count 5.6 X10^3/uL (2.0-7.7); Basophil# 0.02 X10^3/uL; Basophil% 0.3 % (0-1); Eosinophil# 0.18 X10^3/uL; Eosinophils% 2.4 % (0-5); Hematocrit 36.1 % (37-47); Hemoglobin 11.3 g/dL (12.0-15.0); Lymphocyte # 1.11 X10^3/ul (0.83-4.51); Lymphocyte % 14.7 % (19-41); Mean Corp Hgb Conc 31.3 g/dL (32-36); Mean Corpuscular Hgb 27.6 pg (27.0-32.0); Mean Corpuscular Volume 88.3 fL (81-99); Mean Platelet Vol. 8.9 fl (6.2-12.0); NRBC Flagged by Analyzer 0 % (0-5); Neutrophil % 74.2 % (47-70); Platelet Count 206 K/mm3 (150-450); RBC Distribution Width CV 16.5 % (11.6-14.6); RBC Distribution Width SD 53.1 fl (35.1-43.9); Red Blood Count 4.09 M/mm3 (4.2-5.4); White Blood Count 7.5 K/mm3 (4.4-11.0)
[2020-12-18 11:08] LABS: Anion Gap 7 (5-15); BUN 22 mg/dL (7-18); BUN/Creat Ratio 42.1 RATIO (10-20); Calcium,Total 8.7 mg/dL (8.5-10.1); Chloride 105 mmol/L (98-107); Creatinine, Serum 0.52 mg/dL (0.55-1.02); EST Glomerular Filtration Rate 128 mL/min (>60); Est Glom Filt Rate - Afr Amer 155 mL/min (>60); Estimated Creatinine Clearance 93.27 ml/min; Glucose 116 mg/dL (74-106); Potassium 3.5 mmol/L (3.5-5.1); Sodium Level 140 mmol/L (136-145); Troponin-I HS 335 pg/mL (3.0-54.0)
[2020-12-18] MEDS: Furosemide 100 MG/10 ML Vial 80 MG IV (12:57)
--- NOTE | 2020-12-18 13:02 | EKG12_ITS ---
Test Reason : SOB Blood Pressure : / mmHG Vent. Rate : 113 BPM Atrial Rate : 113 BPM P-R Int : 150 ms QRS Dur : 068 ms QT Int : 316 ms P-R-T Axes : 049 013 068 degrees QTc Int : 433 ms Sinus tachycardia Nonspecific ST and T wave abnormality Abnormal ECG Confirmed by JOANNE WOLFE, ARABELLA ([id number]), visual effects editor SHIREEN HORTON ([id number]) on 12/22/2020 10:37:51 AM Referred By: Johnie Mckinnon Confirmed By:ARABELLA RUBIO MD
[2020-12-18] MEDS: Ipratropium/Albuterol Sulfate 3 ML AMPUL.NEB INHALATION (13:08)
--- NOTE | 2020-12-18 14:45 | PCM.HP.STD ---
Documented by User: Herson SOARES 12/18/20 15:32 HPI - General General Date of Admission: 12/18/20 Date of Service: 12/18/20 Chief Complaint: Chest pain w/ shortness of breath HPI Narrative PARADISE FAUST is a 60-year-old female who presents to the ED at [facility] on 12/18/2020 with a chief complaint of chest pain or shortness of breath. Patient reports that about 4 AM this morning patient awoke to severe crushing midsternal chest pain that radiated to the back. Patient reports that when she was awoken she was pale, diaphoretic and felt like she was going to . Patient's subsequently called 911 and patient was brought to the ED via squad. Patient did attempt to alleviate her symptoms with her home medication regimen with no relief. Patient denies any cough, hemoptysis, purulent sputum production or lower extremity pain/swelling. Patient denies any infectious symptoms to include fever, chills, N/V/D. Of note, patient was recently discharged from the hospital for an NSTEMI, where cardiac catheterization was done and was determined that the patient had nonobstructive atherosclerosis. Patient was subsequently discharged on aspirin, Plavix, Coreg and lisinopril. Patient is currently on BiPAP at an FiO2 of 40 and is satting 97%. Other vital signs stable and patient is afebrile. CBC is within normal limits. BMP is unremarkable. Initial high-sensitivity troponin was elevated at 335. BNP pending. CTA was obtained in the ED and demonstrated patchy groundglass opacities in the setting of pulmonary edema, as well as cardiomegaly with coronary vascular calcifications and moderate bilateral pleural effusions with bibasilar compressive atelectasis. Patient was initially started on fluids that were discontinued in the ED and patient was initiated on IV Lasix, as well as getting morphine and bronchodilators. [facility] Medical History Arthritis Chronic pain Debility Decreased left ventricular function Depression Essential hypertension Former smoker GERD (gastroesophageal reflux disease) Hyperlipidemia Injury of fifth cervical spinal cord Insomnia Morbid obesity Neuropathic pain Rheumatoid arthritis Spinal cord stimulator status Home Medications esomeprazole magnesium 40 mg PO BID 05/06/20 [History Last Taken 12/14/20 09:00] hydroxyzine HCl 25 - 50 mg PO Q8H PRN PRN 05/06/20 [History Last Taken 12/14/20 09:00] morphine 15 mg PO Q12H 05/06/20 [History Last Taken 12/14/20 09:00] oxybutynin chloride 10 mg PO DAILY 05/06/20 [History Last Taken 12/14/20 09:00] paroxetine HCl 30 mg PO DAILY 05/06/20 [History Last Taken 12/14/20 09:00] cholecalciferol (vitamin D3) [Vitamin D3] 2,000 unit PO DAILY 12/14/20 [History Last Taken 12/14/20 09:00] folic acid-vit B6-vit B12 [Folbee] 1 tab PO DAILY 12/14/20 [History Last Taken 12/14/20 09:00] metformin 500 mg PO DAILY 12/14/20 [History Last Taken 12/14/20 09:00] methocarbamol 750 mg PO TID 12/14/20 [History Last Taken 12/14/20 09:00] tizanidine 4 mg PO Q6H PRN PRN 12/14/20 [History Last Taken 12/14/20 09:00] aspirin 81 mg PO DAILY #30 tab 12/16/20 [Rx Last Taken Unknown] carvedilol [Coreg] 3.125 mg PO BID #60 tab 12/16/20 [Rx Last Taken Unknown] clopidogrel [Plavix] 75 mg PO DAILY #30 tab 12/16/20 [Rx Last Taken Unknown] lisinopril 2.5 mg PO DAILY #30 tab 12/16/20 [Rx Last Taken Unknown] oxycodone-acetaminophen 1 tab PO TID PRN 12/16/20 [History Last Taken Unknown] prednisone 5 mg PO DAILY PRN 12/16/20 [History Last Taken Unknown] Allergy/AdvReac Type Severity Reaction Status Date / Time adhesive Allergy blisters Verified 12/18/20 10:21 codeine AdvReac Nausea Verified 12/18/20 10:21 Family History Father CAD (coronary artery disease) Other Heart disease Surgical History History of appendectomy Previous back surgery Social History Smoking Status: Former smoker ROS Constitutional Constitutional: Denies anorexia, change in weight, chills, fatigue, fever(s), malaise, night sweats, weakness or other Eyes Eyes: Denies blurry vision, change in eye color, change in vision, discharge from eye(s), double vision, erythema, eye pain, loss of vision or other ENT HEENT: Denies abnormal hearing, dysphagia, ear pain, epistaxis, headache(s), hearing loss, nasal congestion, nasal discharge, post nasal drip, sinus pressure, sore throat or other Cardiovascular Cardiovascular: Reports chest pain, dyspnea on exertion and orthopnea; Denies claudication, edema, lightheadedness, palpitations, paroxysmal nocturnal dyspnea, rapid heart rate, syncope or other Respiratory/Chest Respiratory/Chest: Reports cough, dyspnea and shortness of breath with exertion; Denies excessive phlegm production, hemoptysis, productive cough, shortness of breath at rest, wheezing or other Gastrointestinal Gastrointestinal: Reports abdominal pain; Denies coffee ground emesis, constipation, diarrhea, dyspepsia, hematemesis, hematochezia, loose stools, melena, nausea, vomiting or other Genitourinary Genitourinary: Denies burning urination, difficulty urinating, dysuria, hematuria, nocturia, urinary frequency, urinary hesitancy, urinary incontinence, urinary urgency or other Musculoskeletal Musculoskeletal: Denies arthralgias, back pain, joint pain, joint stiffness, joint swelling, myalgias, neck pain or other Neurologic Neurologic: Denies abnormal gait, abnormal speech, confusion, disequilibrium, dizziness, focal weakness, headache(s), numbness, paresthesias, seizure-like activity, seizures, syncope, tingling, tremor(s) or other Psychiatric Psychiatric: Denies anxiety, depression, homicidal ideation, suicidal ideation or other Endocrine Endocrinology: Denies change in body appearance, cold intolerance, excessive sweating, heat intolerance, polydipsia, polyuria or other Hematologic/Lymphatic Hematologic/Lymphatic: Denies anemia, easy bleeding, easy bruising, lymphadenopathy or other Allergic/Immunologic Allergic/Immunologic: Denies rhinitis, hives, eczemia, asthma or other Vital Signs Vital Signs Vital Signs: 12/18/20 10:21 12/18/20 12:36 12/18/20 13:00 Temperature 98.9 F Temperature Source Temporal Pulse Rate 75 77 91 Respiratory Rate 24 H 15 101 H Blood Pressure 161/87 H Blood Pressure Mean 111 Pulse Ox 95 94 26 Oxygen Delivery Method Room Air Room Air Fraction of Inspired Oxygen (FIO2) 50 12/18/20 13:09 12/18/20 13:55 12/18/20 14:08 Temperature Temperature Source Pulse Rate 101 H 91 Respiratory Rate 26 H 18 Blood Pressure 96/60 Blood Pressure Mean 72 Pulse Ox 98 96 Oxygen Delivery Method Bi-pap Fraction of Inspired Oxygen (FIO2) 40 Weight Weight: 206 lb 9.17 oz Body Mass Index (BMI) 37.8 Physical Exam Const alert and oriented x3 General Appearance: cooperative HEENT normocephalic, head/scalp atraumatic and hearing grossly normal bilaterally Eyes PERRL, EOMs intact bilaterally and conjunctivae normal Neck no lymphadenopathy, supple and no JVD Resp normal respiratory effort, no retractions, no use of accessory muscles and clear to auscultation bilaterally Cardio regular rate, regular rhythm, no murmurs and no JVD GI normal to inspection, nondistended, normoactive bowel sounds, soft to palpation and non-tender Extremity normal to inspection, full ROM and no clubbing, cyanosis or edema Skin no rashes or lesions noted, no wounds, skin turgor normal and no jaundice Neuro CN's II-XII intact bilaterally Psych affect normal Results Lab / Micro Data Result Diagrams: 12/18/20 10:40 12/18/20 10:40 Labs: Laboratory Results - last 24 hr 12/18/20 10:40: WBC 7.5, RBC 4.09 L, Hgb 11.3 L, Hct 36.1 L, MCV 88.3, MCH 27.6, MCHC 31.3 L, RDW Std Deviation 53.1 H, RDW Coeff of Valdemar 16.5 H, Plt Count 206, MPV 8.9, Immature Gran % (Auto) 0.400, Neut % (Auto) 74.2 H, Lymph % (Auto) 14.7 L, [place] % (Auto) 8.0, Eos % (Auto) 2.4, Baso % (Auto) 0.3, Absolute Neuts (auto) 5.6, Absolute Lymphs (auto) 1.11, Nucleated RBC % 0 12/18/20 10:40: Sodium 140, Potassium 3.5, Chloride 105, Carbon Dioxide 28.0, Anion Gap 7, BUN 22 H, Creatinine 0.52 L, Estim Creat Clear Calc 93.27, Est GFR (MDRD) Af Amer 155, Est GFR (MDRD) Non-Af 128, BUN/Creatinine Ratio 42.1 H, Glucose 116 H, Calcium 8.7, Troponin I High Sens 335 H* Radiology Impression Chest CTA 12/18/20 10:33 Assessment & Plan Assessment/Plan (1) Essential hypertension: (2) Decreased left ventricular function: (3) Pulmonary edema: (4) Pleural effusion: PLAN: Patient is a 60-year-old female presents to the ED at on 12/18/2020 with a chief complaint of chest pain or shortness of breath. Patient will be admitted to PCU for cardiac monitoring and further work-up. 1) Acute hypoxic respiratory failure secondary to acute flash pulmonary edema Patient awoke with midsternal chest pain that radiates to the back with shortness of breath, diaphoresis and felt like she was going to . CT-A demonstrated patchy groundglass opacities in the setting of pulmonary edema with cardiomegaly and moderate bilateral pleural effusions with bibasilar compressive atelectasis. Currently satting at 97% on BiPAP at an FiO2 of 40. Patient was recently admitted for NSTEMI and had a catheterization which showed nonobstructive atherosclerosis. Echocardiogram from 12/15 demonstrated an estimated EF of 40 to 45% with mild mitral regurgitation. Given recent work-up for NSTEMI will not continue to cycle high-sensitivity troponins that were initially elevated in the ED. Cardiology was consulted and believe flash pulmonary edema secondary to cardiomyopathy, will follow while admitted. Plan; admit to PCU for cardiac telemetry monitoring, cardiac consult ordered, pulmonary consult ordered, initiate IV Lasix 40 mg every 8 hours, continue BiPAP, O2 per protocol, CBC and BMP in a.m. continue aspirin, continue Coreg, continue Plavix, continue lisinopril, nitroglycerin as needed. 2) DM2 Hold home medication regimen, Accu-Cheks with sliding scale insulin ordered. 3) depression Continue paroxetine. 4) urinary incontinence Continue oxybutynin. CODE STATUS: Full code DVT prophylaxis -low risk, not indicated Patient seen by Herson Hoyt PA-C, under the supervision of Dr. Urrutia. Documented by User: Dr. Jane Urrutia MD 12/18/20 15:44 HPI - General General Date of Admission: 12/18/20 PFS Medical History Arthritis Chronic pain Debility Decreased left ventricular function Depression Essential hypertension Former smoker GERD (gastroesophageal reflux disease) Hyperlipidemia Injury of fifth cervical spinal cord Insomnia Morbid obesity Neuropathic pain Rheumatoid arthritis Spinal cord stimulator status Home Medications esomeprazole magnesium 40 mg PO BID 05/06/20 [History Last Taken 12/14/20 09:00] hydroxyzine HCl 25 - 50 mg PO Q8H PRN PRN 05/06/20 [History Last Taken 12/14/20 09:00] morphine 15 mg PO Q12H 05/06/20 [History Last Taken 12/14/20 09:00] oxybutynin chloride 10 mg PO DAILY 05/06/20 [History Last Taken 12/14/20 09:00] paroxetine HCl 30 mg PO DAILY 05/06/20 [History Last Taken 12/14/20 09:00] cholecalciferol (vitamin D3) [Vitamin D3] 2,000 unit PO DAILY 12/14/20 [History Last Taken 12/14/20 09:00] folic acid-vit B6-vit B12 [Folbee] 1 tab PO DAILY 12/14/20 [History Last Taken 12/14/20 09:00] metformin 500 mg PO DAILY 12/14/20 [History Last Taken 12/14/20 09:00] methocarbamol 750 mg PO TID 12/14/20 [History Last Taken 12/14/20 09:00] tizanidine 4 mg PO Q6H PRN PRN 12/14/20 [History Last Taken 12/14/20 09:00] aspirin 81 mg PO DAILY #30 tab 12/16/20 [Rx Last Taken Unknown] carvedilol [Coreg] 3.125 mg PO BID #60 tab 12/16/20 [Rx Last Taken Unknown] clopidogrel [Plavix] 75 mg PO DAILY #30 tab 12/16/20 [Rx Last Taken Unknown] lisinopril 2.5 mg PO DAILY #30 tab 12/16/20 [Rx Last Taken Unknown] oxycodone-acetaminophen 1 tab PO TID PRN 12/16/20 [History Last Taken Unknown] prednisone 5 mg PO DAILY PRN 12/16/20 [History Last Taken Unknown] Allergy/AdvReac Type Severity Reaction Status Date / Time adhesive Allergy blisters Verified 12/18/20 10:21 codeine AdvReac Nausea Verified 12/18/20 10:21 Family History Father CAD (coronary artery disease) Other Heart disease Surgical History History of appendectomy Previous back surgery Social History Smoking Status: Former smoker Results Lab / Micro Data Result Diagrams: 12/18/20 10:40 12/18/20 10:40 Charges/Coding Addendum Addendum: This patient was seen in conjunction with RODGER Cárdenas. I have independently interviewed and examined the patient and reviewed pertinent historical, laboratory, and other data. Please refer to RODGER Cárdenas's note for his patient's presentation, findings, and recommendations. I have reviewed and his note and concur with his documentation 60-year-old female with multiple comorbidities who presented with sudden onset of shortness of breath and chest pain that started this morning. Patient stated that since her discharge yesterday, she was doing well. She had 2 pieces of pizza. She woke up this morning at 4 AM and had severe midsternal chest pain, she felt diaphoretic and felt like she was going to . The EMS were called. On arrival to the ED, patient had morphine with improvement in her pain. She got up to go to the restroom and became significantly dyspneic and diaphoretic with worsening chest discomfort. Her heart rate was in 120s. Patient was on the nonrebreather mask and was saturating in the 90s. CTA of the chest done showed bilateral pleural effusion with pulmonary edema. Patient was transitioned to the BiPAP and given 80 mg of Lasix. Physical Exam: Gen: Looks in some discomfort, not pale, not jaundiced, on BiPAP, obese CVS:HS I +II, regular, no murmurs RESP: Diminished at lung bases GI: BS present and normal, soft, nontender, no palpable organs EXT:No edema ASSESSMENT: 1. Acute flash pulmonary edema, EF 35 to 40% 2. Type II DM 3. Chronic pain syndrome 4. Anxiety/depression Plan: Dischssed with cardiology; will consult cardiology, admit to PCU stepdown, IV Lasix 40 mg every 8h CHF protocol Continue rest of her home medication Visit Charges Inpatient E&M: 56535 Init Hosp L3
[2020-12-18 15:13] LABS: BNP,B-Type NATRIURETIC PEPTIDE 707.7 pg/mL (0-100)
--- NOTE | 2020-12-18 16:44 | EKG12_ITS ---
Test Reason : CP ADMIT Blood Pressure : / mmHG Vent. Rate : 078 BPM Atrial Rate : 078 BPM P-R Int : 140 ms QRS Dur : 076 ms QT Int : 422 ms P-R-T Axes : 034 049 052 degrees QTc Int : 481 ms Normal sinus rhythm Nonspecific ST abnormality Prolonged QT Abnormal ECG When compared with ECG of 15-DEC-2020 04:17, MANUAL COMPARISON REQUIRED, DATA IS UNCONFIRMED Confirmed by JOANNE WOLFE, ARABELLA ([id number]), news editor SHIREEN HORTON ([id number]) on 12/20/2020 8:01:07 AM Referred By: JOSELYN Confirmed By:ARABELLA RUBIO MD
[2020-12-18 17:55] LABS: Bedside Glucose 90 mg/dL (70-110)
[2020-12-18] MEDS: Furosemide 40 MG/4 ML Vial IV ×2 (17:58→21:33)
[2020-12-18] MEDS: 0.9% Saline Lock 10 ML Syringe IV ×2 (18:02→21:33)
[2020-12-18] MEDS: Enoxaparin 40 MG/0.4 ML Syringe SC (18:11)
[2020-12-18] MEDS: Acetaminophen 325 MG Tablet 650 MG PO (18:15)
[2020-12-18] MEDS: tiZANidine HCl 2 MG Tablet 4 MG PO (20:12)
--- NOTE | 2020-12-18 20:57 | PCS.PANDOC ---
PANDEMIC DOCUMENTATION INITIATED: Date: 12/12/2020 Time: 190
[2020-12-18] MEDS: morphine SR 15 MG Tablet PO (21:33)
[2020-12-18] MEDS: Methocarbamol 750 MG Tablet PO (21:34)
[2020-12-18] MEDS: Carvedilol 3.125 MG TABLET PO (21:34)
[2020-12-18] MEDS: Pantoprazole Sodium 40 MG Tablet PO (21:34)
[2020-12-18 23:00] LABS: Bedside Glucose 132 mg/dL (70-110)
[2020-12-19] VITALS (19 sets, daily range): BP systolic 90–148; BP diastolic 60–98; PULSE 83–145; RESP 10–20; TEMP 35.8–36.7; O2SAT 90–98
--- NOTE | 2020-12-19 03:39 | CPS ---
Pt stated she has a worse time breathing on the bipap than without bipap. Bipap not on
[2020-12-19] MEDS: 0.9% Saline Lock 10 ML Syringe IV ×2 (05:47→09:09)
[2020-12-19] MEDS: Furosemide 40 MG/4 ML Vial IV (05:47)
[2020-12-19] MEDS: Methocarbamol 750 MG Tablet PO ×3 (05:47→21:32)
[2020-12-19 06:56] LABS: Bedside Glucose 153 mg/dL (70-110)
[2020-12-19] MEDS: Insulin Lispro 100 UNIT/ML INSULN.PEN SC ×3 (06:56→21:37)
[2020-12-19 07:15] LABS: Hematocrit 38.5 % (37-47); Hemoglobin 12.5 g/dL (12.0-15.0); Mean Corp Hgb Conc 32.5 g/dL (32-36); Mean Corpuscular Hgb 27.7 pg (27.0-32.0); Mean Corpuscular Volume 85.4 fL (81-99); Mean Platelet Vol. 8.8 fl (6.2-12.0); Platelet Count 234 K/mm3 (150-450); RBC Distribution Width CV 16.5 % (11.6-14.6); RBC Distribution Width SD 50.8 fl (35.1-43.9); Red Blood Count 4.51 M/mm3 (4.2-5.4); White Blood Count 5.9 K/mm3 (4.4-11.0)
[2020-12-19 07:52] LABS: ALB/GLOB Ratio 0.7 RATIO (0.9-2.4); AST(SGOT) 20 U/L (15-37); Alanine Aminotransfer ALT/SGPT 26 U/L (13-56); Albumin, Serum 2.9 g/dL (3.2-5.0); Alkaline Phosphatase 86 U/L (45-117); Anion Gap 7 (5-15); BUN 18 mg/dL (7-18); BUN/Creat Ratio 34.8 RATIO (10-20); Calcium,Total 8.4 mg/dL (8.5-10.1); Chloride 99 mmol/L (98-107); Creatinine, Serum 0.52 mg/dL (0.55-1.02); EST Glomerular Filtration Rate 130 mL/min (>60); Est Glom Filt Rate - Afr Amer 157 mL/min (>60); Estimated Creatinine Clearance 93.27 ml/min; Glucose 135 mg/dL (74-106); Potassium 2.9 mmol/L (3.5-5.1); Protein, Total 6.9 g/dL (6.4-8.2); Sodium Level 138 mmol/L (136-145)
[2020-12-19 07:56] LABS: Bedside Glucose 180 mg/dL (70-110)
[2020-12-19 08:08] LABS: Magnesium 1.6 mg/dL (1.6-2.6)
[2020-12-19] MEDS: Aspirin 81 MG TAB.CHEW PO (08:42)
[2020-12-19] MEDS: Pantoprazole Sodium 40 MG Tablet PO ×2 (08:42→21:32)
[2020-12-19] MEDS: PARoxetine 10 MG Tablet 30 MG PO (08:42)
[2020-12-19] MEDS: Lisinopril 2.5 MG Tablet PO (08:42)
[2020-12-19] MEDS: morphine SR 15 MG Tablet PO ×2 (08:42→21:32)
[2020-12-19] MEDS: Potassium Chloride Oral Tablet 20 MEQ 60 MEQ PO (08:43)
[2020-12-19] MEDS: Enoxaparin 40 MG/0.4 ML Syringe SC (08:43)
[2020-12-19] MEDS: Clopidogrel Bisulfate 75 MG Tablet PO (08:43)
[2020-12-19] MEDS: Tolterodine Tartrate 2 MG CAP.SA PO (08:43)
[2020-12-19] MEDS: Carvedilol 3.125 MG TABLET PO (08:43)
[2020-12-19] MEDS: Metoprolol Tartrate 5 MG/5 ML Vial 2.5 MG IV (09:09)
--- NOTE | 2020-12-19 10:03 | PN.HOSP_ITS ---
Documented by User: Herson SOARES 12/19/20 10:15 Subjective Subjective Patient is a 60-year-old female who is resting in bed, alert and orient x3. Patient reports improvement of her shortness of breath from admission and now only endorses mild chest pain. Denies shortness of breath, palpitations, hemopt ysis, sputum production, fever, chills, N/V/D. Objective Data Objective Data Vital Signs: Vital Signs Temp Pulse Resp BP Pulse Ox 96.5 F L 145 H 17 142/98 H 94 12/19/20 05:00 12/19/20 09:09 12/19/20 09:00 12/19/20 09:09 12/19/20 09:07 Oxygen Flow Rate (L/min) 3 Oxygen Delivery Method Nasal Cannula Weight: 195 lb 1.745 oz Body Mass Index (BMI) 36.3 Intake & Output: Intake and Output for Last 24 Hours 12/17/20 12/18/20 12/19/20 23:59 23:59 23:59 Intake Total 477.5 / 477.5 120 / 120 Output Total 4250 / 4250 500 / 500 Balance -3772.5 / -3772.5 -380 / -380 Lab / Micro Data Result Diagrams: 12/19/20 07:05 12/19/20 07:05 Labs: Laboratory Results - last 24 hr 12/18/20 10:40: WBC 7.5, RBC 4.09 L, Hgb 11.3 L, Hct 36.1 L, MCV 88.3, MCH 27.6, MCHC 31.3 L, RDW Std Deviation 53.1 H, RDW Coeff of Valdemar 16.5 H, Plt Count 206, MPV 8.9, Immature Gran % (Auto) 0.400, Neut % (Auto) 74.2 H, Lymph % (Auto) 14.7 L, [place] % (Auto) 8.0, Eos % (Auto) 2.4, Baso % (Auto) 0.3, Absolute Neuts (auto) 5.6, Absolute Lymphs (auto) 1.11, Nucleated RBC % 0 12/18/20 10:40: Sodium 140, Potassium 3.5, Chloride 105, Carbon Dioxide 28.0, Anion Gap 7, BUN 22 H, Creatinine 0.52 L, Estim Creat Clear Calc 93.27, Est GFR (MDRD) Af Amer 155, Est GFR (MDRD) Non-Af 128, BUN/Creatinine Ratio 42.1 H, Glucose 116 H, Calcium 8.7, Troponin I High Sens 335 H* 12/18/20 10:40: B-Natriuretic Peptide 707.7 H 12/18/20 17:49: POC Glucose 90 12/18/20 21:30: POC Glucose 132 H 12/19/20 06:53: POC Glucose 153 H 12/19/20 07:05: WBC 5.9, RBC 4.51, Hgb 12.5, Hct 38.5, MCV 85.4, MCH 27.7, MCHC 32.5, RDW Std Deviation 50.8 H, RDW Coeff of Valdemar 16.5 H, Plt Count 234, MPV 8.8 12/19/20 07:05: Sodium 138, Potassium 2.9 L, Chloride 99, Carbon Dioxide 32.0, Anion Gap 7, BUN 18, Creatinine 0.52 L, Estim Creat Clear Calc 93.27, Est GFR (MDRD) Af Amer 157, Est GFR (MDRD) Non-Af 130, BUN/Creatinine Ratio 34.8 H, Glucose 135 H, Calcium 8.4 L, Total Bilirubin 0.60, AST 20, ALT 26, Alkaline Phosphatase 86, Total Protein 6.9, Albumin 2.9 L, Globulin 4.0, Albumin/Globulin Ratio 0.7 L 12/19/20 07:05: Magnesium 1.6 12/19/20 07:51: POC Glucose 180 H Micro: Microbiology 12/18/20 15:25 Mucosa - Nose SARS-CoV-2 Antigen (Rapid) - Final Radiography Diagnostic Testing: Radiology Impression Chest CTA 12/18/20 10:33 Physical Exam Const alert, oriented x3 and no apparent distress HEENT head/scalp atraumatic and moist oral mucous membranes Head and Scalp: normocephalic Eyes EOMs intact bilaterally and conjunctivae normal Neck no lymphadenopathy, supple and no JVD Resp Effort and Inspection: tachypneic, respiratory distress and labored Auscultation: diminished lung sounds Cardio regular rate, regular rhythm, no murmurs and no JVD GI normal to inspection, nondistended, normoactive bowel sounds, soft to palpation and non-tender Extremity normal to inspection, full ROM and no clubbing, cyanosis or edema Skin no rashes or lesions noted, no wounds, skin turgor normal and no jaundice Neuro CN's II-XII intact bilaterally Psych affect normal Assessment & Plan Assessment/Plan (1) Pleural effusion: (2) Pulmonary edema: PLAN: Day 2 Discharge planning: Patient wishes to discharge home when medically ready. 1) Acute hypoxic respiratory failure secondary to acute flash pulmonary edema Patient reports that shortness of breath is improved from admission, currently satting 94% on 3 L via nasal cannula. CT-A demonstrated patchy groundglass opacities in the setting of pulmonary edema with cardiomegaly and moderate bilateral pleural effusions with bibasilar compressive atelectasis. Patient was recently admitted for NSTEMI and had a catheterization which showed nonobstructive atherosclerosis. Echocardiogram from 12/15 demonstrated an estimated EF of 40 to 45% with mild mitral regurgitation. Cardiology was consulted and believe flash pulmonary edema secondary to cardiomyopathy, will follow while admitted. Plan; admit to PCU for cardiac telemetry monitoring, cardiac consult ordered, pulmonary consult ordered, initiate IV Lasix 40 mg every 8 hours, continue BiPAP, O2 per protocol, continue aspirin, continue Coreg, continue Plavix, continue lisinopril, nitroglycerin as needed. 2) DM2 Hold home medication regimen, Accu-Cheks with sliding scale insulin ordered. 3) depression Continue paroxetine. 4) urinary incontinence Continue oxybutynin. DVT prophylaxis - Lovenox Patient seen by Herson Hoyt PA-C, under the supervision of Dr. Wills. Documented by User: Dr. Juliann Wills MD 12/19/20 15:56 Objective Data Lab / Micro Data Result Diagrams: 12/19/20 07:05 12/19/20 07:05 Charges/Coding Addendum Addendum: Patient seen by Herson Hoyt PA-C under my supervision Patient seen and examined. She has no complaints today and her shortness of breath has improved. Review of systems otherwise negative. She has remained hemodynamically stable. O/E: Const alert, oriented x3 and no apparent distress HEENT head/scalp atraumatic and moist oral mucous membranes Head and Scalp: normocephalic Eyes EOMs intact bilaterally and conjunctivae normal Neck no lymphadenopathy, supple and no JVD Resp Effort and Inspection: tachypneic, respiratory distress and labored Auscultation: diminished lung sounds Cardio regular rate, regular rhythm, no murmurs and no JVD GI normal to inspection, nondistended, normoactive bowel sounds, soft to palpation and non-tender Extremity normal to inspection, full ROM and no clubbing, cyanosis or edema Skin no rashes or lesions noted, no wounds, skin turgor normal and no jaundice Neuro CN's II-XII intact bilaterally Psych affect normal Patient has been managed for acute hypoxic respiratory failure due to acute flash pulmonary edema. Shortness of breath is now much better and she is on 3 L of oxygen. Continue diuresing with Lasix. She did have a cath last week for non-STEMI which showed nonobstructive coronary arteries and the EF is known to be 40 to 45%. Continue IV lasix. Monitor intake and output. Fluid restriction to 1500cc daily. On aspirin, plavix, coreg and lisinopril. Cardiology and pulmonology on board. For likely DC tomorrow. Rest as per Herson Hoyt PA-C's note, which I have reviewed and endorsed. Visit Charges Inpatient E&M: 13636 Subs Hosp L2
[2020-12-19 11:40] LABS: Bedside Glucose 163 mg/dL (70-110)
--- NOTE | 2020-12-19 12:00 | CASEMGMT ---
Per [facility] primetime website, the following are in-network tertiary facilities: [place], [facility], [facility], and . Casey GARLAND CM
--- NOTE | 2020-12-19 12:53 | CON.PCM.CA_ITS ---
Assessment & Plan Assessment/Plan (1) Decreased left ventricular function: PLAN: She does have evidence of left ventricular systolic dysfunction. It appears that she also had some evidence of diastolic overload. She was discharged without any diuretic management. Her cardiac catheterization films were reviewed and do not demonstrate any significant obstructive coronary disease warranting intervention at this time. * I would recommend that we put her on oral diuretics twice daily in addition to her MOSHE inhibitor and beta-simona. * She can follow-up as an outpatient with her primary finance vice president Dr. Adan Vallecillo. (2) Essential hypertension: PLAN: Would recommend aggressive treatment of her blood pressure at home. We will slowly titrate up her blood pressure medications. HPI Consult Data Date of Consult: 12/19/20 HPI Narrative HPI Narrative: PARADISE FAUST, is a 60 F who presents to the emergency room with shortness of breath. She apparently woke up at about 4 AM yesterday morning with crushing midsternal chest discomfort. They called 911 and brought her to the emergency room. She denied any cough or hemoptysis. She had been admitted and discharged early on in the week with an non-ST elevation myocardial infarction where cardiac catheterization done demonstrated normal left anterior descending artery, normal left circumflex artery, normal right coronary artery, and a moderate disease noted of the circumflex artery. An echocardiogram was performed which demonstrated mildly reduced left ventricular systolic function with mild hypokinesis of the lateral wall. She was discharged on aspirin, clopidogrel, Coreg, and lisinopril. In the emergency room she was noted to be on BiPAP with an FiO2 of 40% and no aggressive or acute EKG changes were noted. Initial high-sensitivity troponin was elevated at 355 which was markedly reduced from what she had previously. She was initiated on IV Lasix and has been doing much better. She currently complains of no chest discomfort. She had no pedal edema as well. [facility] Medical History Arthritis Chronic pain Debility Decreased left ventricular function Depression Essential hypertension Former smoker GERD (gastroesophageal reflux disease) Hyperlipidemia Injury of fifth cervical spinal cord Insomnia Morbid obesity Neuropathic pain Rheumatoid arthritis Spinal cord stimulator status Home Medications esomeprazole magnesium 40 mg PO BID 05/06/20 [History Last Taken 12/14/20 09:00] hydroxyzine HCl 25 - 50 mg PO Q8H PRN PRN 05/06/20 [History Last Taken 12/14/20 09:00] morphine 15 mg PO Q12H 05/06/20 [History Last Taken 12/14/20 09:00] oxybutynin chloride 10 mg PO DAILY 05/06/20 [History Last Taken 12/14/20 09:00] paroxetine HCl 30 mg PO DAILY 05/06/20 [History Last Taken 12/14/20 09:00] cholecalciferol (vitamin D3) [Vitamin D3] 2,000 unit PO DAILY 12/14/20 [History Last Taken 12/14/20 09:00] folic acid-vit B6-vit B12 [Folbee] 1 tab PO DAILY 12/14/20 [History Last Taken 12/14/20 09:00] metformin 500 mg PO DAILY 12/14/20 [History Last Taken 12/14/20 09:00] methocarbamol 750 mg PO TID 12/14/20 [History Last Taken 12/14/20 09:00] tizanidine 4 mg PO Q6H PRN PRN 12/14/20 [History Last Taken 12/14/20 09:00] aspirin 81 mg PO DAILY #30 tab 12/16/20 [Rx Last Taken Unknown] carvedilol [Coreg] 3.125 mg PO BID #60 tab 12/16/20 [Rx Last Taken Unknown] clopidogrel [Plavix] 75 mg PO DAILY #30 tab 12/16/20 [Rx Last Taken Unknown] lisinopril 2.5 mg PO DAILY #30 tab 12/16/20 [Rx Last Taken Unknown] oxycodone-acetaminophen 1 tab PO TID PRN 12/16/20 [History Last Taken Unknown] prednisone 5 mg PO DAILY PRN 12/16/20 [History Last Taken Unknown] Allergy/AdvReac Type Severity Reaction Status Date / Time adhesive Allergy blisters Verified 12/18/20 10:21 codeine AdvReac Nausea Verified 12/18/20 10:21 Family History Father CAD (coronary artery disease) Other Heart disease Surgical History History of appendectomy Previous back surgery Social History Smoking Status: Former smoker ROS Constitutional Constitutional: Denies fever(s) or weight loss Eyes Eyes: Reports systems reviewed and no addt'l complaints, except as documented ENT HEENT: Reports systems reviewed and no addt'l complaints, except as documented Cardiovascular Cardiovascular: Reports chest pain with activity and dyspnea on exertion; Denies chest pain at rest, dyspnea at rest, edema, palpitations or paroxysmal nocturnal dyspnea Respiratory/Chest Respiratory/Chest: Denies dyspnea on exertion, productive cough, shortness of breath at rest or shortness of breath with exertion Gastrointestinal Gastrointestinal: Denies change in bowel habits, nausea, vomiting or weight changes Genitourinary Genitourinary: Denies difficulty urinating Musculoskeletal Musculoskeletal: Denies joint stiffness or muscle weakness Integumentary Integumentary: Denies lesions Neurologic Neurologic: Denies dizziness or syncope Psychiatric Psychiatric: Denies anxiety Endocrine Endocrinology: Denies excessive sweating or fatigue Hematologic/Lymphatic Hematologic/Lymphatic: Denies anemia Allergic/Immunologic Allergic/Immunologic: Denies seasonal rhinorrhea Physical Exam Const alert and oriented x3 HEENT normocephalic Eyes EOMs intact bilaterally Neck no JVD Lymph Lymphatic: no lymphadenopathy noted Chest inspection of chest normal Resp clear to auscultation bilaterally Cardio regular rate and regular rhythm GI normal to inspection, nondistended, normoactive bowel sounds Neuro CN's II-XII intact bilaterally Objective Data Vital Signs: Vital Signs Temp Pulse Resp BP Pulse Ox 97.3 F L 89 20 H 148/76 H 96 12/19/20 11:00 12/19/20 11:00 12/19/20 11:00 12/19/20 11:00 12/19/20 11:00 Oxygen Flow Rate (L/min) 3 Oxygen Delivery Method Nasal Cannula Weight: 195 lb 1.745 oz Body Mass Index (BMI) 36.3 Intake & Output: Intake and Output for Last 24 Hours 12/17/20 12/18/20 12/19/20 23:59 23:59 23:59 Intake Total 477.5 / 477.5 360 / 360 Output Total 4250 / 4250 900 / 900 Balance -3772.5 / -3772.5 -540 / -540 Lab / Micro Data Result Diagrams: 12/19/20 07:05 12/19/20 07:05 Labs: Laboratory Results - last 24 hr 12/18/20 10:40: B-Natriuretic Peptide 707.7 H 12/18/20 17:49: POC Glucose 90 12/18/20 21:30: POC Glucose 132 H 12/19/20 06:53: POC Glucose 153 H 12/19/20 07:05: WBC 5.9, RBC 4.51, Hgb 12.5, Hct 38.5, MCV 85.4, MCH 27.7, MCHC 32.5, RDW Std Deviation 50.8 H, RDW Coeff of Valdemar 16.5 H, Plt Count 234, MPV 8.8 12/19/20 07:05: Sodium 138, Potassium 2.9 L, Chloride 99, Carbon Dioxide 32.0, Anion Gap 7, BUN 18, Creatinine 0.52 L, Estim Creat Clear Calc 93.27, Est GFR (MDRD) Af Amer 157, Est GFR (MDRD) Non-Af 130, BUN/Creatinine Ratio 34.8 H, Glucose 135 H, Calcium 8.4 L, Total Bilirubin 0.60, AST 20, ALT 26, Alkaline Phosphatase 86, Total Protein 6.9, Albumin 2.9 L, Globulin 4.0, Albumin/Globulin Ratio 0.7 L 12/19/20 07:05: Magnesium 1.6 12/19/20 07:51: POC Glucose 180 H 12/19/20 11:31: POC Glucose 163 H Micro: Microbiology 12/18/20 15:25 Mucosa - Nose SARS-CoV-2 Antigen (Rapid) - Final Cardiology Labs/Tests 12/18/20 10:40: B-Natriuretic Peptide 707.7 H 12/19/20 07:05: WBC 5.9, RBC 4.51, Hgb 12.5, Hct 38.5, MCV 85.4, MCH 27.7, MCHC 32.5, Plt Count 234, MPV 8.8 12/19/20 07:05: Sodium 138, Potassium 2.9 L, Chloride 99, Carbon Dioxide 32.0, Anion Gap 7, BUN 18, Creatinine 0.52 L, Est GFR (MDRD) Af Amer 157, Est GFR (MD RD) Non-Af 130, BUN/Creatinine Ratio 34.8 H, Glucose 135 H, Calcium 8.4 L, Total Bilirubin 0.60 12/19/20 07:05: Magnesium 1.6 Rhythm: EKG: ECHO: Stress Test: Cardiac Cath: PCI: CT Surgery: Holter monitor: EPS: PPM: CXR: Chest CT Scan:
--- NOTE | 2020-12-19 14:22 | CON.PCM.CC_ITS ---
Assessment & Plan Assessment/Plan (1) Pulmonary edema: PLAN: RECOMMENDATIONS: 1. Continue diuretic regimen as tolerated by hemodynamics and renal function. 2. Wean supplemental oxygen to maintain saturations at or above 90%. 3. Encourage incentive spirometer use and mobilize patient as tolerated. 4. Perform walking oximetry study prior to consideration for discharge home. 5. Will sign off from a pulmonary perspective. Please call with any additional questions. IMPRESSIONS: 1. Acute hypoxemic respiratory failure Appears to be secondary to decompensated heart failure. The patient has improved symptomatically with the use of noninvasive positive pressure ventilatory support and IV diuretic therapy. Recommend continuing medical management per cardiology recommendations. Continue to wean supplemental oxygen to maintain to maintain saturations at or above 90%. Encourage incentive spirometer use and mobilize patient as tolerated. Perform walking oximetry study prior to consideration for discharge home. 2. Obesity/anxiety/hypertension/diabetes mellitus Complicates care, management, recovery and prognosis. Continue home medications as indicated. This note was generated with [employer] dictation software. It may contain incorrect words, spelling, and punctuation that were not noted in checking the note before signing. HPI Consult Data Date of Consult: 12/19/20 HPI Narrative Reason for Consultation: Acute hypoxemic respiratory failure HPI Narrative: The patient is a 60-year-old female, with a history as outlined b nuha, who presented to the emergency department on December 18 with chest discomfort and dyspnea. The patient was just discharged from the hospital on December 16 after having been admitted with a non-ST segment elevation KS, with cardiac catheterization revealing nonobstructive coronary disease. The patient had an ejection fraction of approximately 40 to 45%. On presentation to the emergency department, the patient was noted to be hypertensive and tachypneic. Initial laboratory evaluation revealed a normal white blood cell count. Chemistry profile was unremarkable. Troponin was elevated at 335 with a BNP of 707. CTA chest showed no evidence for pulmonary embolism. Moderate bilateral pleural effusions were noted with patchy groundglass changes bilaterally. The patient was initially placed on BiPAP therapy and administered IV diuretic therapy. She was admitted to the progressive care unit for further management. Overnight, the patient's oxygenation status has improved. She is currently maintaining appropriate saturations in the high 90s on 3 L/min. The patient does report that she does not utilize supplemental oxygen at her baseline. She does report improvement in her dyspnea. [facility] Medical History Arthritis Chronic pain Debility Decreased left ventricular function Depression Essential hypertension Former smoker GERD (gastroesophageal reflux disease) Hyperlipidemia Injury of fifth cervical spinal cord Insomnia Morbid obesity Neuropathic pain Rheumatoid arthritis Spinal cord stimulator status Home Medications esomeprazole magnesium 40 mg PO BID 05/06/20 [History Last Taken 12/14/20 09:00] hydroxyzine HCl 25 - 50 mg PO Q8H PRN PRN 05/06/20 [History Last Taken 12/14/20 09:00] morphine 15 mg PO Q12H 05/06/20 [History Last Taken 12/14/20 09:00] oxybutynin chloride 10 mg PO DAILY 05/06/20 [History Last Taken 12/14/20 09:00] paroxetine HCl 30 mg PO DAILY 05/06/20 [History Last Taken 12/14/20 09:00] cholecalciferol (vitamin D3) [Vitamin D3] 2,000 unit PO DAILY 12/14/20 [History Last Taken 12/14/20 09:00] folic acid-vit B6-vit B12 [Folbee] 1 tab PO DAILY 12/14/20 [History Last Taken 12/14/20 09:00] metformin 500 mg PO DAILY 12/14/20 [History Last Taken 12/14/20 09:00] methocarbamol 750 mg PO TID 12/14/20 [History Last Taken 12/14/20 09:00] tizanidine 4 mg PO Q6H PRN PRN 12/14/20 [History Last Taken 12/14/20 09:00] aspirin 81 mg PO DAILY #30 tab 12/16/20 [Rx Last Taken Unknown] carvedilol [Coreg] 3.125 mg PO BID #60 tab 12/16/20 [Rx Last Taken Unknown] clopidogrel [Plavix] 75 mg PO DAILY #30 tab 12/16/20 [Rx Last Taken Unknown] lisinopril 2.5 mg PO DAILY #30 tab 12/16/20 [Rx Last Taken Unknown] oxycodone-acetaminophen 1 tab PO TID PRN 12/16/20 [History Last Taken Unknown] prednisone 5 mg PO DAILY PRN 12/16/20 [History Last Taken Unknown] Allergy/AdvReac Type Severity Reaction Status Date / Time adhesive Allergy blisters Verified 12/18/20 10:21 codeine AdvReac Nausea Verified 12/18/20 10:21 Family History Father CAD (coronary artery disease) Other Heart disease Surgical History History of appendectomy Previous back surgery Social History Smoking Status: Former smoker ROS Constitutional Constitutional: Denies chills, fatigue or fever(s) Eyes Eyes: Denies blurry vision or change in vision ENT HEENT: Denies dizziness, loss taste/smell or nasal congestion Cardiovascular Cardiovascular: Reports chest pain and dyspnea Respiratory/Chest Respiratory/Chest: Reports dyspnea; Denies cough or hemoptysis Gastrointestinal Gastrointestinal: Denies abdominal pain, diarrhea, nausea or vomiting Genitourinary Genitourinary: Denies difficulty urinating Musculoskeletal Musculoskeletal: Denies arthralgias or back pain Integumentary Integumentary: Denies lesions Neurologic Neurologic: Denies abnormal gait or abnormal speech Psychiatric Psychiatric: Denies anxiety or depression Endocrine Endocrinology: Denies fatigue Hematologic/Lymphatic Hematologic/Lymphatic: Denies easy bleeding or easy bruising Physical Exam Const alert and no apparent distress General Appearance: cooperative Nutritional Appearance: obese HEENT normocephalic, head/scalp atraumatic and moist oral mucous membranes Eyes PERRL, EOMs intact bilaterally and conjunctivae normal Neck supple General: trachea midline Resp Auscultation: diminished lung sounds; Negative for rales, rhonchi or wheezes Cardio regular rate and regular rhythm GI normal to inspection, nondistended, normoactive bowel sounds Extremity no clubbing, cyanosis or edema Skin no rashes or lesions noted Neuro oriented x3, CN's II-XII intact bilaterally and moves all extremities Psych cooperative and affect normal Lab / Micro Data Result Diagrams: 12/19/20 07:05 12/19/20 07:05 Labs: Laboratory Results - last 24 hr 12/18/20 10:40: B-Natriuretic Peptide 707.7 H 12/18/20 17:49: POC Glucose 90 12/18/20 21:30: POC Glucose 132 H 12/19/20 06:53: POC Glucose 153 H 12/19/20 07:05: WBC 5.9, RBC 4.51, Hgb 12.5, Hct 38.5, MCV 85.4, MCH 27.7, MCHC 32.5, RDW Std Deviation 50.8 H, RDW Coeff of Valdemar 16.5 H, Plt Count 234, MPV 8.8 12/19/20 07:05: Sodium 138, Potassium 2.9 L, Chloride 99, Carbon Dioxide 32.0, Anion Gap 7, BUN 18, Creatinine 0.52 L, Estim Creat Clear Calc 93.27, Est GFR (MDRD) Af Amer 157, Est GFR (MDRD) Non-Af 130, BUN/Creatinine Ratio 34.8 H, Glucose 135 H, Calcium 8.4 L, Total Bilirubin 0.60, AST 20, ALT 26, Alkaline Phosphatase 86, Total Protein 6.9, Albumin 2.9 L, Globulin 4.0, Albumin/Globulin Ratio 0.7 L 12/19/20 07:05: Magnesium 1.6 12/19/20 07:51: POC Glucose 180 H 12/19/20 11:31: POC Glucose 163 H Micro: Microbiology 12/18/20 15:25 Mucosa - Nose SARS-CoV-2 Antigen (Rapid) - Final Charges/Coding Visit Charges Inpatient E&M: 75689 Init Hosp L3
--- NOTE | 2020-12-19 15:10 | CASEMGMT ---
Readmission chart review: Pt was initially admitted 12/14-12/16/20 for STEMI but cath showed non-obstructive coronaries. Pt was discharged home and returned to [facility] on 12/18/20 for chest pain. Pt was admitted with Acute flash pulm edema and was placed on bipap but is currently on 3L nc. Pt is not on home oxygen. Cardiology consulted and pt placed on bid diuretic. Pt does have f/u scheduled with cardiology for 12/22/20 at 0930. CM to follow for home oxygen need and any further discharge planning/needs. SStcornelio GARLAND CM
--- NOTE | 2020-12-19 16:17 | NURSING ---
Pt had an IV Extravasation on 12/14/20 as an ED pt. DADA Christensen called PCU to get an assessment of extravazated IV site since pt was 4 days post-extravasation. Extravasation assessment had not been completed in ED and IV site on assembly riveter form from CT states 20G AC therefore, DADA Christensen asked that both ACs be assessed. Pt's RN on PCU reports there is no bruising, swelling or blisters on either AC. Pt denies pain or discomfort from extravasation.
--- NOTE | 2020-12-19 16:22 | CASEMGMT ---
DADA CM completed palliative screening tool for Lace/Strata 3. Patient does not meet criteria at this time.
[2020-12-19] MEDS: Carvedilol 6.25 MG Tablet PO (16:28)
[2020-12-19 16:36] LABS: Bedside Glucose 143 mg/dL (70-110)
[2020-12-19] MEDS: Furosemide 40 MG Tablet PO (17:14)
[2020-12-19] MEDS: tiZANidine HCl 2 MG Tablet 4 MG PO (20:09)
[2020-12-19] MEDS: Acetaminophen 325 MG Tablet 650 MG PO (20:10)
[2020-12-19 22:26] LABS: Bedside Glucose 187 mg/dL (70-110)
[2020-12-20] VITALS (7 sets, daily range): BP systolic 111–152; BP diastolic 62–83; PULSE 71–86; RESP 12–20; TEMP 35.7–36.6; O2SAT 94–98
[2020-12-20 05:56] LABS: Absolute Lymphocyte Count 1.68 X10^3/uL (0.83-4.51); Absolute Neutrophil Count 2.6 X10^3/uL (2.0-7.7); Basophil# 0.02 X10^3/uL; Basophil% 0.4 % (0-1); Eosinophil# 0.28 X10^3/uL; Eosinophils% 5.2 % (0-5); Hemoglobin 11.9 g/dL (12.0-15.0); Lymphocyte # 1.68 X10^3/ul (0.83-4.51); Lymphocyte % 31.5 % (19-41); Mean Corp Hgb Conc 31.3 g/dL (32-36); Mean Corpuscular Hgb 27.5 pg (27.0-32.0); Mean Corpuscular Volume 87.8 fL (81-99); Mean Platelet Vol. 8.7 fl (6.2-12.0); Monocyte# 0.78 X10^3/uL; Monocyte% 14.6 % (0-10); NRBC Flagged by Analyzer 0 % (0-5); Neutrophil # 2.56 X10^3/uL (2.7-7.7); Neutrophil % 47.9 % (47-70); Platelet Count 224 K/mm3 (150-450); RBC Distribution Width CV 16.9 % (11.6-14.6); RBC Distribution Width SD 53.3 fl (35.1-43.9); Red Blood Count 4.33 M/mm3 (4.2-5.4); White Blood Count 5.3 K/mm3 (4.4-11.0)
[2020-12-20 06:21] LABS: Anion Gap 4 (5-15); BUN 20 mg/dL (7-18); BUN/Creat Ratio 32.4 RATIO (10-20); Calcium,Total 8.6 mg/dL (8.5-10.1); Chloride 98 mmol/L (98-107); Creatinine, Serum 0.62 mg/dL (0.55-1.02); EST Glomerular Filtration Rate 105 mL/min (>60); Est Glom Filt Rate - Afr Amer 128 mL/min (>60); Estimated Creatinine Clearance 78.23 ml/min; Glucose 125 mg/dL (74-106); Potassium 3.2 mmol/L (3.5-5.1); Sodium Level 138 mmol/L (136-145)
[2020-12-20] MEDS: Methocarbamol 750 MG Tablet PO (06:41)
[2020-12-20 06:51] LABS: Bedside Glucose 136 mg/dL (70-110)
[2020-12-20] MEDS: Potassium Chloride Oral Tablet 20 MEQ 60 MEQ PO (09:16)
[2020-12-20] MEDS: Carvedilol 6.25 MG Tablet PO (09:18)
[2020-12-20] MEDS: Enoxaparin 40 MG/0.4 ML Syringe SC (09:18)
[2020-12-20] MEDS: Furosemide 40 MG Tablet PO (09:18)
[2020-12-20] MEDS: Tolterodine Tartrate 2 MG CAP.SA PO (09:18)
[2020-12-20] MEDS: morphine SR 15 MG Tablet PO (09:19)
[2020-12-20] MEDS: Clopidogrel Bisulfate 75 MG Tablet PO (09:19)
[2020-12-20] MEDS: PARoxetine 10 MG Tablet 30 MG PO (09:19)
[2020-12-20] MEDS: Pantoprazole Sodium 40 MG Tablet PO (09:20)
[2020-12-20] MEDS: Lisinopril 5 MG Tablet PO (09:20)
[2020-12-20] MEDS: Aspirin 81 MG TAB.CHEW PO (09:24)
--- NOTE | 2020-12-20 10:30 | PCM.DC ---
Discharge Instructions Diet Discharge Diet: No restrictions Activity Discharge Activity: Return to Normal Activity Weight Bearing Status: Weight bearing as tolerated Dressing / Incision Call your doctor if you observe: Fever of 101 or Higher, Numbness or Tingling, Shortness of breath, Dizziness, Chest pain, Increased palpitations (irregular heartbeat) and Calf discomfort Follow Up Care Please Follow Up With: Primary care provider When: Within the next two weeks. Test Results: Test results from this visit will be discussed in further detail at your follow-up appointment, if applicable. Discharge Plan Admission Admit Date/Time: 12/18/20 14:33 Primary Reason for Your Visit: Shortness of breath Attending Provider: Juliann Wills Primary Care Provider: Keren Bustamante Consulting Providers: Nam Sandoval ; Benedicto Lima Discharge Orders/Prescriptions Prescriptions: New carvedilol 6.25 mg Tablet 6.25 mg PO BIDCM Qty: 60 RF: 0 lisinopril 5 mg Tablet 5 mg PO DAILY Qty: 30 RF: 0 cefdinir 300 mg Capsule 300 mg PO Q12 Qty: 14 RF: 0 furosemide 40 mg Tablet 40 mg PO BIDLX Qty: 60 RF: 0 Continued oxybutynin chloride 10 MG tablet extended release 24hr 10 mg PO DAILY RF: 0 paroxetine HCl 20 MG tablet 30 mg PO DAILY RF: 0 esomeprazole magnesium 40 MG capsule 40 mg PO BID RF: 0 hydroxyzine HCl 25 MG tablet 25 - 50 mg PO Q8H PRN PRN (Reason: Itching) RF: 0 morphine 15 MG tablet 15 mg PO Q12H RF: 0 tizanidine 4 mg tablet 4 mg PO Q6H PRN PRN (Reason: Spasms) RF: 0 folic acid-vit B6-vit B12 [Folbee] 2.5-25-1 mg tablet 1 tab PO DAILY RF: 0 methocarbamol 750 mg tablet 750 mg PO TID RF: 0 metformin 500 mg tablet extended release 24 hr 500 mg PO DAILY RF: 0 cholecalciferol (vitamin D3) [Vitamin D3] 50 mcg (2,000 unit) tablet 2,000 unit PO DAILY RF: 0 clopidogrel [Plavix] 75 mg tablet 75 mg PO DAILY Qty: 30 RF: 0 aspirin 81 mg tablet,chewable 81 mg PO DAILY Qty: 30 RF: 0 oxycodone-acetaminophen 7.5-325 mg tablet 1 tab PO TID PRN (Reason: Pain) RF: 0 prednisone 5 mg tablet 5 mg PO DAILY PRN (Reason: RHEUMATOID ARTHRITIS FLARE) RF: 0 Discontinued lisinopril 2.5 mg tablet 2.5 mg PO DAILY Qty: 30 RF: 0 carvedilol [Coreg] 3.125 mg tablet 3.125 mg PO BID Qty: 60 RF: 0 Referrals / Follow Up: Keren Bustamante MD [Primary Care Provider] - Within 2 Weeks Disposition Disposition (needs filled in before D/C Order can be placed): Home, Self Care
[2020-12-20] MEDS: Cefdinir 300 MG Capsule PO (11:32)
[2020-12-20] MEDS: Insulin Lispro 100 UNIT/ML INSULN.PEN SC (11:33)
--- NOTE | 2020-12-20 11:44 | CASEMGMT ---
Per Denton GARLAND, pt does not qualify for home oxygen. This RN CM to room and pt states no concerns with going home at time of discharge. Pt declines any further resources/needs. Casey GARLAND CM
[2020-12-20 12:01] LABS: Bedside Glucose 195 mg/dL (70-110)
--- NOTE | 2020-12-20 12:37 | PHA.DC.MC ---
Pharmacy Service has performed discharge medication reconciliation and counseling for this patient. 1. CEFDINIR 300MG PO BID X 7 DAYS 2. FUROSEMIDE 40MG PO BIDLX The patient's discharge medication list was reviewed for discrepancies and discrepancies were resolved. Home Medications esomeprazole magnesium 40 mg PO BID 05/06/20 hydroxyzine HCl 25 - 50 mg PO Q8H PRN PRN 05/06/20 morphine 15 mg PO Q12H 05/06/20 oxybutynin chloride 10 mg PO DAILY 05/06/20 paroxetine HCl 30 mg PO DAILY 05/06/20 cholecalciferol (vitamin D3) [Vitamin D3] 2,000 unit PO DAILY 12/14/20 folic acid-vit B6-vit B12 [Folbee] 1 tab PO DAILY 12/14/20 metformin 500 mg PO DAILY 12/14/20 methocarbamol 750 mg PO TID 12/14/20 tizanidine 4 mg PO Q6H PRN PRN 12/14/20 aspirin 81 mg PO DAILY #30 tab 12/16/20 clopidogrel [Plavix] 75 mg PO DAILY #30 tab 12/16/20 oxycodone-acetaminophen 1 tab PO TID PRN 12/16/20 prednisone 5 mg PO DAILY PRN 12/16/20 carvedilol 6.25 mg PO BIDCM #60 tab 12/20/20 cefdinir 300 mg PO Q12 #14 cap 12/20/20 furosemide 40 mg PO BIDLX #60 tab 12/20/20 lisinopril 5 mg PO DAILY #30 tab 12/20/20 The patient was counseled on the following discharge medications and changes in medications for homegoing were reviewed. The Reason for Use, instructions for use, and potential side effects were reviewed for all new medications. The patient's questions regarding all of their medications were answered. The patient was able to verbally demonstrate an understanding of their discharge medications.
--- NOTE | 2020-12-20 12:38 | PCM.DC.SUM ---
Documented by User: Herson SOARES 12/20/20 12:49 Providers Date of Admission: 12/18/20 Primary Care Physician: Dr. 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 Routine Consulting Provider: Nam Sandoval Reason for Consult: Flash pulmonary edema EMERGENT Consult: No Notified: Yes Date Notified: 12/19/20 Time Notified: 07:52 Method of Notification: Text 12/19/20 09:22 Consult: Cardiology Routine Consulting Provider: Benedicto Lima Reason for Consult: Flash pulmonary edema EMERGENT Consult: No Notified: Yes Date Notified: 12/19/20 Time Notified: 09:22 Method of Notification: Text Reason For Visit: ACUTE FLASH PULMONARY EDEMA Diagnosis Discharge Diagnosis (1) Pulmonary edema: Status: Acute Code(s): J81.1 - Chronic pulmonary edema Medications at Discharge Home Medications esomeprazole magnesium 40 mg PO BID 05/06/20 hydroxyzine HCl 25 - 50 mg PO Q8H PRN PRN 05/06/20 morphine 15 mg PO Q12H 05/06/20 oxybutynin chloride 10 mg PO DAILY 05/06/20 paroxetine HCl 30 mg PO DAILY 05/06/20 cholecalciferol (vitamin D3) [Vitamin D3] 2,000 unit PO DAILY 12/14/20 folic acid-vit B6-vit B12 [Folbee] 1 tab PO DAILY 12/14/20 metformin 500 mg PO DAILY 12/14/20 methocarbamol 750 mg PO TID 12/14/20 tizanidine 4 mg PO Q6H PRN PRN 12/14/20 aspirin 81 mg PO DAILY #30 tab 12/16/20 clopidogrel [Plavix] 75 mg PO DAILY #30 tab 12/16/20 oxycodone-acetaminophen 1 tab PO TID PRN 12/16/20 prednisone 5 mg PO DAILY PRN 12/16/20 carvedilol 6.25 mg PO BIDCM #60 tab 12/20/20 cefdinir 300 mg PO Q12 #14 cap 12/20/20 furosemide 40 mg PO BIDLX #60 tab 12/20/20 lisinopril 5 mg PO DAILY #30 tab 12/20/20 Hospital Course Summary of Care Provided Minutes Spent on Discharge: 35 Hospital Course: Disposition: Patient to be discharged home, no home health care needs or additional therapies identified. 1) Acute hypoxic respiratory failure secondary to acute flash pulmonary edema Pulmonology and cardiology consulted plan; recommend initiation of diuretics. Follow-up with primary care provider and cardiology within the next 2 weeks. Plan; discharge home, initiate Lasix 40 mg p.o. twice daily, carvedilol increased to 6.25 mg p.o. twice daily, lisinopril increased to 5 mg p.o. daily. Continue aspirin and Plavix. 2) acute cystitis Patient reports development of pain with urination. Vital signs stable and patient is afebrile. CBC does not demonstrate a leukocytosis. UA is unremarkable. Given patient's symptoms, despite unremarkable work-up will initiate cefdinir 200 mg p.o. twice daily x7 days on discharge. 3) DM2 Continue home diabetic regimen. 4) depression Continue paroxetine. 5) urinary incontinence Continue oxybutynin. Patient seen by Herson Hoyt PA-C, under the supervision of Dr. Wills. Physical Exam Narrative Patient is a 60-year-old female comfortably resting in bed, alert and orient x3. Patient reports that her shortness of breath has significantly improved from admission. Does endorse some pain on urination. Denies chest pain, shortness of breath, palpitations, hemoptysis, sputum production, fever, chills, N/V/D. Const alert, oriented x3 and no apparent distress HEENT normocephalic, head/scalp atraumatic and hearing grossly normal bilaterally Eyes EOMs intact bilaterally and conjunctivae normal Neck no lymphadenopathy, supple and no JVD Resp normal respiratory effort, no retractions and no use of accessory muscles Auscultation: diminished lung sounds Cardio regular rate, regular rhythm, no murmurs and no JVD GI normal to inspection, nondistended, normoactive bowel sounds, soft to palpation and non-tender Extremity normal to inspection, full ROM and no clubbing, cyanosis or edema Skin no rashes or lesions noted, no wounds and skin turgor normal Neuro CN's II-XII intact bilaterally Psych affect normal Weight / BMI Weight Weight: 199 lb 8.293 oz Body Mass Index (BMI) 36.3 ABG / Lab / Microbiology Data Result Diagrams: 12/20/20 05:20 12/20/20 05:20 Laboratory: Laboratory Results - last 24 hr 12/19/20 16:21: POC Glucose 143 H 12/19/20 21:36: POC Glucose 187 H 12/20/20 05:20: WBC 5.3, RBC 4.33, Hgb 11.9 L, Hct 38.0, MCV 87.8, MCH 27.5, MCHC 31.3 L, RDW Std Deviation 53.3 H, RDW Coeff of Valdemar 16.9 H, Plt Count 224, MPV 8.7, Immature Gran % (Auto) 0.400, Neut % (Auto) 47.9, Lymph % (Auto) 31.5, [place] % (Auto) 14.6 H, Eos % (Auto) 5.2 H, Baso % (Auto) 0.4, Absolute Neuts (auto) 2.6, Absolute Lymphs (auto) 1.68, Nucleated RBC % 0 12/20/20 05:20: Sodium 138, Potassium 3.2 L, Chloride 98, Carbon Dioxide 36.0 H, Anion Gap 4 L, BUN 20 H, Creatinine 0.62, Estim Creat Clear Calc 78.23, Est GFR (MDRD) Af Amer 128, Est GFR (MDRD) Non-Af 105, BUN/Creatinine Ratio 32.4 H, Glucose 125 H, Calcium 8.6 12/20/20 06:39: POC Glucose 136 H 12/20/20 11:31: POC Glucose 195 H Microbiology: Microbiology 12/18/20 15:25 Mucosa - Nose SARS-CoV-2 Antigen (Rapid) - Final D/C Instructions Discharge Diet: No restrictions Weight Bearing Status: Weight bearing as tolerated Call your doctor if you observe: Fever of 101 or Higher, Numbness or Tingling, Shortness of breath, Dizziness, Chest pain, Increased palpitations (irregular heartbeat) and Calf discomfort Please Follow Up With: Primary care provider When: Within the next two weeks. Meaningful Use Info Meaningful Use Diagnoses (Choose all that apply): None applicable Discharge Plan Admission Admit Date/Time: 12/18/20 14:33 Primary Reason for Your Visit: Shortness of breath Attending Provider: Juliann Wills Primary Care Provider: Keren Bustamante Consulting Providers: Nam Sandoval ; Benedicto Lima Instructions Additional Instructions / Restrictions: Patient Problems: Altered Health Status related to Hospitalization Patient Goals: *Optimal Level of Health *Keep Appointments *Medication Compliance *Remain Safe Discharge Orders/Prescriptions Prescriptions: New carvedilol 6.25 mg Tablet 6.25 mg PO BIDCM Qty: 60 RF: 0 lisinopril 5 mg Tablet 5 mg PO DAILY Qty: 30 RF: 0 cefdinir 300 mg Capsule 300 mg PO Q12 Qty: 14 RF: 0 furosemide 40 mg Tablet 40 mg PO BIDLX Qty: 60 RF: 0 Continued oxybutynin chloride 10 MG tablet extended release 24hr 10 mg PO DAILY RF: 0 paroxetine HCl 20 MG tablet 30 mg PO DAILY RF: 0 esomeprazole magnesium 40 MG capsule 40 mg PO BID RF: 0 hydroxyzine HCl 25 MG tablet 25 - 50 mg PO Q8H PRN PRN (Reason: Itching) RF: 0 morphine 15 MG tablet 15 mg PO Q12H RF: 0 tizanidine 4 mg tablet 4 mg PO Q6H PRN PRN (Reason: Spasms) RF: 0 folic acid-vit B6-vit B12 [Folbee] 2.5-25-1 mg tablet 1 tab PO DAILY RF: 0 methocarbamol 750 mg tablet 750 mg PO TID RF: 0 metformin 500 mg tablet extended release 24 hr 500 mg PO DAILY RF: 0 cholecalciferol (vitamin D3) [Vitamin D3] 50 mcg (2,000 unit) tablet 2,000 unit PO DAILY RF: 0 clopidogrel [Plavix] 75 mg tablet 75 mg PO DAILY Qty: 30 RF: 0 aspirin 81 mg tablet,chewable 81 mg PO DAILY Qty: 30 RF: 0 oxycodone-acetaminophen 7.5-325 mg tablet 1 tab PO TID PRN (Reason: Pain) RF: 0 prednisone 5 mg tablet 5 mg PO DAILY PRN (Reason: RHEUMATOID ARTHRITIS FLARE) RF: 0 Discontinued lisinopril 2.5 mg tablet 2.5 mg PO DAILY Qty: 30 RF: 0 carvedilol [Coreg] 3.125 mg tablet 3.125 mg PO BID Qty: 60 RF: 0 Referrals / Follow Up: Keren Bustamante MD [Primary Care Provider] - Within 2 Weeks Disposition Disposition (needs filled in before D/C Order can be placed): Home, Self Care Documented by User: Dr. Juliann Wills MD 12/20/20 17:34 Providers Date of Admission: 12/18/20 Reason For Visit: ACUTE FLASH PULMONARY EDEMA Medications at Discharge Home Medications esomeprazole magnesium 40 mg PO BID 05/06/20 hydroxyzine HCl 25 - 50 mg PO Q8H PRN PRN 05/06/20 morphine 15 mg PO Q12H 05/06/20 oxybutynin chloride 10 mg PO DAILY 05/06/20 paroxetine HCl 30 mg PO DAILY 05/06/20 cholecalciferol (vitamin D3) [Vitamin D3] 2,000 unit PO DAILY 12/14/20 folic acid-vit B6-vit B12 [Folbee] 1 tab PO DAILY 12/14/20 metformin 500 mg PO DAILY 12/14/20 methocarbamol 750 mg PO TID 12/14/20 tizanidine 4 mg PO Q6H PRN PRN 12/14/20 aspirin 81 mg PO DAILY #30 tab 12/16/20 clopidogrel [Plavix] 75 mg PO DAILY #30 tab 12/16/20 oxycodone-acetaminophen 1 tab PO TID PRN 12/16/20 prednisone 5 mg PO DAILY PRN 12/16/20 carvedilol 6.25 mg PO BIDCM #60 tab 12/20/20 cefdinir 300 mg PO Q12 #14 cap 12/20/20 furosemide 40 mg PO BIDLX #60 tab 12/20/20 lisinopril 5 mg PO DAILY #30 tab 12/20/20 ABG / Lab / Microbiology Data Result Diagrams: 12/20/20 05:20 12/20/20 05:20 Discharge Plan Admission Admit Date/Time: 12/18/20 14:33 Primary Reason for Your Visit: Shortness of breath Attending Provider: Juliann Wills Primary Care Provider: Keren Bustamante Consulting Providers: Nam Sandoval ; Benedicto Lima Instructions Additional Instructions / Restrictions: Patient Problems: Altered Health Status related to Hospitalization Patient Goals: *Optimal Level of Health *Keep Appointments *Medication Compliance *Remain Safe Discharge Orders/Prescriptions Prescriptions: New carvedilol 6.25 mg Tablet 6.25 mg PO BIDCM Qty: 60 RF: 0 lisinopril 5 mg Tablet 5 mg PO DAILY Qty: 30 RF: 0 cefdinir 300 mg Capsule 300 mg PO Q12 Qty: 14 RF: 0 furosemide 40 mg Tablet 40 mg PO BIDLX Qty: 60 RF: 0 Continued oxybutynin chloride 10 MG tablet extended release 24hr 10 mg PO DAILY RF: 0 paroxetine HCl 20 MG tablet 30 mg PO DAILY RF: 0 esomeprazole magnesium 40 MG capsule 40 mg PO BID RF: 0 hydroxyzine HCl 25 MG tablet 25 - 50 mg PO Q8H PRN PRN (Reason: Itching) RF: 0 morphine 15 MG tablet 15 mg PO Q12H RF: 0 tizanidine 4 mg tablet 4 mg PO Q6H PRN PRN (Reason: Spasms) RF: 0 folic acid-vit B6-vit B12 [Folbee] 2.5-25-1 mg tablet 1 tab PO DAILY RF: 0 methocarbamol 750 mg tablet 750 mg PO TID RF: 0 metformin 500 mg tablet extended release 24 hr 500 mg PO DAILY RF: 0 cholecalciferol (vitamin D3) [Vitamin D3] 50 mcg (2,000 unit) tablet 2,000 unit PO DAILY RF: 0 clopidogrel [Plavix] 75 mg tablet 75 mg PO DAILY Qty: 30 RF: 0 aspirin 81 mg tablet,chewable 81 mg PO DAILY Qty: 30 RF: 0 oxycodone-acetaminophen 7.5-325 mg tablet 1 tab PO TID PRN (Reason: Pain) RF: 0 prednisone 5 mg tablet 5 mg PO DAILY PRN (Reason: RHEUMATOID ARTHRITIS FLARE) RF: 0 Discontinued lisinopril 2.5 mg tablet 2.5 mg PO DAILY Qty: 30 RF: 0 carvedilol [Coreg] 3.125 mg tablet 3.125 mg PO BID Qty: 60 RF: 0 Referrals / Follow Up: Keren Bustamante MD [Primary Care Provider] - Within 2 Weeks Disposition Disposition (needs filled in before D/C Order can be placed): Home, Self Care Charges/Coding Addendum Addendum: Patient seen by Herson Hoyt PA-C under my supervision Patient is a 60-year-old female with past medical history as outlined was admitted through the ED on December 18, 2020 with a complaint of chest discomfort and dyspnea. Patient had just been discharged a few days prior after being managed for non-STEMI and had a cardiac cath which showed nonobstructive coronary disease with an EF of approximately 40 to 45%. Patient presented to the ED this time with her above symptoms, she was noted to be hypotensive and tachypneic with troponin elevated at 335 and BNP of 707. CT of the chest was negative for any evidence of PE and she had moderate bilateral pleural effusions as per the CTA. Was admitted and managed for acute hypoxic respiratory failure due to acute flash pulmonary edema. Cardiology was consulted and she was started on IV Lasix. She was initially placed on BiPAP and pulmonology was consulted. She was gradually weaned off of BiPAP. Shortness of breath improved and patient did well. She was eventually transitioned to oral Lasix and weaned off of oxygen. She remained stable and was discharged home on 12/20/2020. 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 Of note, on day of discharge, patient complained of burning with urination and so was started on p.o. cefdinir for 7-day course. Patient seen and examined prior to discharge. She felt well and had no complaints. Review of systems otherwise negative. Labs and vitals reviewed. Home medication reviewed and reconciled. O/E: O/E: Const alert, oriented x3 and no apparent distress HEENT head/scalp atraumatic and moist oral mucous membranes Head and Scalp: normocephalic Eyes EOMs intact bilaterally and conjunctivae normal Neck no lymphadenopathy, supple and no JVD Resp Effort and Inspection: tachypneic, respiratory distress and labored Auscultation: diminished lung sounds Cardio regular rate, regular rhythm, no murmurs and no JVD GI normal to inspection, nondistended, normoactive bowel sounds, soft to palpation and non-tender Extremity normal to inspection, full ROM and no clubbing, cyanosis or edema Skin no rashes or lesions noted, no wounds, skin turgor normal and no jaundice Neuro CN's II-XII intact bilaterally Psych affect normal Plan is for discharge home today as above. Rest as per Herson Hoyt PA-C's note which I reviewed and endorsed. Visit Charges Inpatient E&M: 67965 Disch Hosp
--- NOTE | 2020-12-21 14:05 | CASEMGMT ---
DADA HALL Discharge Follow-up Phone Call: CHIN: 11 Strata: 3 Call Date: 12/21/20 Discharge Date: 12/20/20 Time of Call: 1405 Duration: 1 min Admitting Diagnosis: Acute Flash Pulmonary Edema DADA HALL attempted to complete follow-up phone call after recent hospitalization. No answer, voice message left with return contact information.
== END 2020-12-20 12:54 | disposition home or self-care (01) | DRG 280 ==
LOC: ED 14:38 → PCU 14:48
PROVIDERS: Hospitalist; Physician Assistant; Admitting Provider Internal Medicine; Emergency Provider Emergency Medicine; PCP Internal Medicine; Visit Provider Student in an Organized Health Care Education/Training Program
DX: I11.0 Hypertensive heart disease with heart failure (principal); J96.01 Acute respiratory failure with hypoxia; I21.4 Non-ST elevation (NSTEMI) myocardial infarction; N30.00 Acute cystitis without hematuria; J90 Pleural effusion, not elsewhere classified; I50.1 Left ventricular failure, unspecified; F32.9 Major depressive disorder, single episode, unspecified; K21.9 Gastro-esophageal reflux disease without esophagitis; G89.4 Chronic pain syndrome; E66.01 Morbid (severe) obesity due to excess calories; E11.40 Type 2 diabetes mellitus with diabetic neuropathy, unspecified; R32 Unspecified urinary incontinence; Z79.02 Long term (current) use of antithrombotics/antiplatelets; Z79.82 Long term (current) use of aspirin; Z79.899 Other long term (current) drug therapy; Z87.891 Personal history of nicotine dependence; Z79.84 Long term (current) use of oral hypoglycemic drugs; Z68.37 Body mass index [BMI] 37.0-37.9, adult
CPT/HCPCS: 36415; 71275; 80048; 80053; 82962; 83735; 83880; 84484; 85025; 85027; 87426; 93005; 94002; 94003; 94640; 94762; 99251; 99285; J7030; Q9967; A4216; G0463; J1940; J2405

== ENCOUNTER → 2021-01-04 13:19 | Outpatient (CLI) | payer MEDICARE, SELFPAY ==
--- NOTE | 2021-01-04 13:41 | CR.HP_ITS ---
CR - History & Physical - General Arrival date:: 01/04/21 Arrival time:: 13:43 Date of Referral:: 12/22/20 Date of CR Evaluation:: 01/04/21 Referring Physician: Dr. Adan Vallecillo Primary Diagnosis: NSTEMI within the past 12 months - History of Present Cardiac Event Onset Date: Enter Onset Date of cardiac illnesses in Comment field below Acute Myocardial Infarction within 12 months:: Yes - 12/17/2020 - Sleep Disorder Evaluation Hx of Sleep Apnea: No Do you snore loudly (louder than talking or can be heard through closed doors)?: Yes Do you often feel tired/ fatigued/ sleepy during daytime?: Yes Has anyone observed you stop breathing during sleep?: No History of Hypertension (for STOP score): Yes STOP Results: Positive - Medications Home Medications: Ambulatory Orders Medication Instructions Recorded esomeprazole magnesium 40 mg PO BID 05/06/20 hydroxyzine HCl 25 - 50 mg PO Q8H PRN PRN 05/06/20 morphine 15 mg PO Q12H 05/06/20 oxybutynin chloride 10 mg PO DAILY 05/06/20 paroxetine HCl 30 mg PO DAILY 05/06/20 cholecalciferol (vitamin D3) 2,000 unit PO DAILY 12/14/20 [Vitamin D3] folic acid-vit B6-vit B12 [Folbee] 1 tab PO DAILY 12/14/20 metformin 500 mg PO DAILY 12/14/20 methocarbamol 750 mg PO TID 12/14/20 tizanidine 4 mg PO Q6H PRN PRN 12/14/20 aspirin 81 mg PO DAILY #30 tab 12/16/20 oxycodone-acetaminophen 1 tab PO TID PRN 12/16/20 prednisone 5 mg PO DAILY PRN 12/16/20 cefdinir 300 mg PO Q12 #14 cap 12/20/20 atorvastatin 40 mg tablet 40 mg PO DAILY #90 tab 12/22/20 carvedilol 6.25 mg tablet 6.25 mg PO BID #180 tab 12/22/20 clopidogrel 75 mg tablet 75 mg PO DAILY #90 tab 12/22/20 furosemide 40 mg tablet 40 mg PO DAILY #90 tab 12/22/20 lisinopril 5 mg tablet 5 mg PO DAILY #90 tab 12/22/20 potassium chloride 10 mEq 10 meq PO DAILY #90 cap 12/22/20 capsule,extended release - Allergies Allergies/Adverse Reactions: Allergies adhesive Allergy (Verified 12/22/20 09:30) blisters codeine Adverse Reaction (Verified 12/22/20 09:30) Nausea Advanced Directives - Advanced Directives 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 Living Will: No Advance Directives Information Provided: No Advance Directives on File: No DNR Order?:: No Past Medical History - Covid-19 Screening Fever: No Unexplained muscle aches: No Current respiratory symptoms: No Upper respiratory infections symptoms: No Gastro-intestinal symptoms: No Odk-Akns-Snjuvy symptoms: No Has tested positive for COVID-19 in last 30 days: No Had contact w/person w/symptoms or Covid-19 (+) last 14 days: No Has High Risk Exposures ID'd by Health dept/Inf Control team: No 65 years or older:: No Lives in Assisted Living facility:: No Has a chronic lung disease or moderate to severe asthma:: No Has a serious heart condition:: Yes Immunocompromised:: No Severely obese (Body Mass Index of 40 or higher):: Yes Diabetic:: No Has chronic kidney disease undergoing dialysis:: No Has liver disease:: No - Past Medical Illness Medical History: Past Medical History (Last Reviewed 12/22/20 @ 15:45 by Jocelyn SOARES, PA) Acute coronary syndrome I24.9 Arthritis M19.90 Chronic pain G89.29 Debility R53.81 Decreased left ventricular function I51.9 Depression F32.9 Essential hypertension I10 Former smoker Z87.891 GERD (gastroesophageal reflux disease) K21.9 Hyperlipidemia E78.5 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 Packs Smoked per Day: 1 Hx Tobacco Use: Yes - Alcohol Use Alcohol Usage: No - Substance Abuse Hx Substance Use: No - Occupation Occupation (List type of work in comments):: Unemployed - disability - Hobbies, Recreation, Social Activities Hobbies: Sewing Recreational Activities: I am able to engage in all my recreational activities Social Environment - Status Marital Status: - Current Living Arrangements Living Environment:: Family - lives with ex - Safety Do you feel safe in your surroundings?: Yes - Assistance Do you need any assistance at home?: none Review of Systems - Review of Systems Hints: Right click = Denies (Slash). Left click = Reports (Millis) Review of Present Symptoms: Reports: Shortness of Breath with Exertion, Angina, Dizziness/Lightheadedness, Fatigue, Appetite - Normal, Sleep - Normal. Denies: Shortness of Breath at Rest, PVD, Operative Discomfort, Wound Healing, Heart Arrhythmia/Irregularities, Appetite - Special Diet, Sexual Changes - Pain Is Patient Pain Free?: No Pain Location: neck, back Pain Level: 01/06 Risk Factor Assessment - Chief Complaint Chief Complaint: NSTEMI within 12 months - Vital Signs Pulse Ox: 94 Blood Pressure: 96/50 - Pulse Pulse Rate: 90 Pulse Rhythm: Regular - Obesity Height: 5 ft 2 in Weight:: 87.997 kg Weight in Pounds: 194.0 lbs Body Mass Index (BMI): 35.4 Nutritional Referral for Obesity: Yes - Physical Inactivity Physical Inactivity: Recreational activity - Risk Stratification Risk Guidelines: Moderate Risk: Risk Factor for Smoking, Risk Factor for Dyslipidemia, Risk Factor for Diabetes, Highest Risk: Risk Factor for Obesity, Risk Factor for Hypertension, Risk Factor for Sedentary Lifestyle, Risk Factor for Depression - Family History Family History: Family History (Last Reviewed 12/22/20 @ 15:45 by Jocelyn SOARES, PA) Father CAD (coronary artery disease) Other Heart disease Motivation - Motivation to Participate On a scale of 1 to 10, how prepared are you to commit to attending program?: 10 What do you see as barriers to successfully being able to complete the program?: none What do you see as the benefits of succesfully completing the program? In other words, what do you hope to get out of participating in the program?: improved health and energy Are there issues you are dealing with that will interfere with completing the program?: none Do you have a spouse or signficant other, family or friends who will help support you to complete the program?: yes
--- NOTE | 2021-01-04 13:42 | PCM.CR.ITP ---
Diagnosis - General Information Admitting Diagnosis: NSTEMI within the past 12 months. Personal Learning Style:: Audio/Visual, Demonstration, Group, Individual Preference, Written Barriers to Learning: Vision Impairment Stage of change r/t lifestyle modifications:: Contemplation Gave educational material for:: Treating Heart Disease, Emotions & Heart Disease, Stress Management & Relaxation, Sleep Disorders & Heart Disease, How The Heart Works, What it means to have Heart Disease, How Coronary Artery Disease is Diagnosed, Heart Procedures, What Heart Medications Do, Risk Factors & Modifications, Living an Active Life, Nutrition - Education/Goals Cardiac Rehabilitation Goals: 1. Maintain the individual as the primary focus of care. 2. To improve the patient's quality of life. 3. Identification of cardiac risk factors and provide cardiac risk factor management. 4. Enhance the psychosocial status of the patient. 5. Reconditioning enough to allow the patient to resume customary activities. 6. Control symptoms of cardiac disease Personal Goals: Initial Assessment: Improve energy level, Improve knowledge of cardiac disease, Improve muscle strength and endurance, Improve diet and eating habits (eat healthier), Control risk factors (learn risk factor modification) Scale for measuring improvement of personal goals: Enter appropriate number in Comments. 2 = Unchanged. 3 = Slightly Better. 4 = Moderate Improvement. 5 = Met my Goal - Diagnosis & Disease Process Outcomes/Goals: Pt IDs own risk factors & lifestyle modifications by Session 10, Verbalizes symptoms of angina & response by session 3., Pt independently manages, Other Additional Outcomes/Goals: Plan/Interventions: Assist Pt to ID & engage in lifestyle modification to reduce CVD risk, Instruct on individual risk factors, Review symptoms of angina & emergency actions, Review secondary diagnosis & identify educational needs., Other see comment 30 day Reassessments:: Not Met 30 day Reassessments:: Not Met 30 day Reassessments:: Not Met 30 day Reassessments:: Not Met Final Reassessments:: Not Met - Safety Referral to Physical Therapy: No Referral to [facility] Case Management: No Fall Risk Assessed:: Yes Assistive Devices:: None Exercise - Initial Assessment - Visit Date of Eval: 01/04/21 Mets: Pre-: >3 METS for 30 minutes by discharge, >5 METS for 30 minutes by discharge, >7 METS for 30 minutes by discharge, Unable to meet goal due to: (see comment below) - Physician Prescribed Exercise Modalities: Treadmill, Biodyne, Rower, Airdyne, NuStep, SciFit Frequency: 3x/week for 12 weeks [36 sessions] Intensity: 60-80% of age predicted maximum heart rate reserve Current METSs:: 2.0 Target Heart Rate:: 92-120 EKG Type: NSR - Outcomes & Goals Goals:: Verbalizes understanding of THR, RPE & goal METS by session 6, Documents in home exercise log/reports 30 min aerobic 5 day/wk by DC, Demonstrates accurate pulse taking by DC, Other additional outcome/goals: see below - Intervention & Plan Exercise Program Goals: Instruct on personal THR & RPE, Instruct on MET level & personal MET goal, Show patient to take own pulse /validate performance until accurate, Instruct on home exercise, Other additional plan/int - Physical Activity Home Exercise Physical Activity - Home Exercise: Safe Exercise, Warm-up, Self-monitoring, Cool-Down, Home Exercise > 30 min Daily, Sitting Time <3 hours/daily - Outcomes & Goals Outcomes/Goals: Demonstrates correct Warm-up/exercise Cool-Down (S3) if = 2.5 METs, Verbalizes symptoms of exercise intolerance by Session 3 (S3), Demonstrate safe equipment use (S3) & follows exercise prescrition (6), Other: See below - Intervention & Plan Plan/Intervention: Instruct warm-up & cool-down if exercising at > 2 METs, Instruct on symptoms of exercise intolerance & actions to take, Instruct & monitor on saf, Assess intial functional capacity & safety risk, Other See below Nutrition - Initial Assessment - Program Goals Nutrition Program Goals: LDL <100 optimal. 100 - 129 Near optimal. 130 - 159 Borderline High. 160 - 189 High. Total Cholesterol <200 desirable. 200 - 239 Borderline High. >/= 240 High. HDL < 40 Low >/=60 High. Triglycerides <150 desirable. <199 optimal. VlDL 5 - 40. HgbA1C <7%. BMI <25 Patient has diagnosis of Hyperlipidemia (ICD E78)?: Yes - Visit Date of Assessment:: 01/04/21 - initial eval - Cholesterol/Lipids Determine presence & major risk factors that modify LDL goal: Cigarette smoking, Hypertension or hypertensive medication, Low HDL cholesterol <40 mg/dL*, Family history of premature CHD in Male < 55 years: female <65 yearsFa, Age men > 45 years; women >/= 55 years Outcomes/Goals: Pt IDs own risk factors & lifestyle modifications by Session 10, Verbalizes symptoms of angina & response by session 3., Pt independently manages, Other Additional Outcomes/Goals: Intervention/Plan: Advocate for lipid panel cholesterol medication if applicable, Instruct on personal lipid levels & lipid goals/NCEP guidelines, Instruct on cholesterol, Other additional plan/int - Diabetes (Other Core Measures) Diabetes Type: Not Applicable - Weight Mgt (Other Care) Height: 5 ft 2 in Weight:: 87.997 kg BMI: 35.4 Diagnosis Overweight/Obesity BMI> 30% ICD-10 E66: Yes Diagnosis High BMI/Morbid Obesity BMI> 35% ICD-10 Z68: Yes Outcomes/Goals: Pt sets, maintains & shows weight loss goal & trend during rehab, Other additional outcomes/goals Intervention/Plan: Instruct on ideal BMI & set weight loss goal w/patient, Assist pt to ID & incorporate diet changes for weight loss by S9, Refer to Structured Weight Loss program as appropriate, Encourage goal of using 250-300dcal per session for weight loss, Other additional plan/interventions - Healthy Eating Habits Will attend diet classes:: Yes Outcomes/Goals:: Consume diet rich in vegs,fruits,whole grain/high fiber,fish,lean meat, Limit sat/trans fats,cholesterol & added salts & sugars, Other additional outcome/goals: Intervention/Plan:: Assess current eating habits, Other Additional plan/interventions - Education Gave educational materials for:: Signs & symptoms of hypoglycemia, Signs & symptoms of hyperglycemia, Relate diabetes to coronary artery disease, Healthy eating Nutrition - 30-Day Assessment Nutrition - 60-Day Assessment Nutrition - 90-Day Assessment Nutrition - Final Assessment Medical - Initial Assessment - Visit Date of Eval: 01/04/21 - initial eval - Medication Compliance Preventative Medication(s):: Aspirin, MOSHE inhibitor, Clopidogrel/P2Y12 inhibit, Statin/lipid, Beta simona H/O mental health issues: depression, anxiety, or addiction?: Yes Doesn?t believe in the benefits of treatment?: No Believes medications are unnecessary or harmful?: No Has a concern about medication side effects?: No Expresses concern over the cost of medications?: No Outcomes/Goals: Verbalizes medications,desired effect & common side effects @ DC, Pt self-reports following medication regimen, Keeps card in wallet w/medications listed by DC, Other additional outcome/goals: Interventions/plans: Instruct on medication effects & side effects, Review medication list w/patient every two weeks, Instruct importance of taking meds as ordered & assist problem solving, Other additional - Tobacco Use Tobacco Use: Non-smoker How long ago did you quit using tobacco products?: Greater than or equal to 6 months ago - Hypertension Hypertension Diagnosis:: Hypertension ICD-10 I10 [place] [employer] Hypertension Guidelines: [place] [employer] Hypertension Guidelines. Normal BP Less than 120/80. Elevated BP 120/80. Hypertension Stage 1: BP 130-139/80-89. Hypertesnion Stage 2: BP 140 or higher/90 or higher. Hypertension Crisis: BP higher than 180/120 Interventions/plan: Instruct on optimal blood pressure, hypertension & medications, Instruct on effects of sodium, alcohol, stress, exercise &hypertension, Other additional plan/interventions - Tobacco Cessation Referral Smoking Cessation Referral:: No Individual Education/Counseling:: No Education Schedule Given:: Yes Medical- 30-Day Assessment Medical- 60-Day Assessment Medical- 90-Day Assessment Medical - Final Assessment Psychosocial - Initial Assess - VIsit Date of Eval: 01/04/21 - initial eval History of previous Mental disease:: Yes History of Emotional Disorders: Depression - Outcomes/Goals: See list Psychosocial Outcomes/Goals:: ID's personal stressors & 2 strategies to manage stress by discharge, Other Additional outcome/goals: - Intervention/Plan: See List Interventions/Plan:: Assess stressors,coping strategies & signs of derpression on admission, Instruct/assist pt to develop coping & personal stress Mgt strategies, Refer to Behavioral Health if appropriate, Refer to Physician if appropriate, Instruct patient to recognize signs & symptoms of depression, Instruct patient to recog, Other additional plan/intervention Psychosocial - 30-Day Assess Psychosocial - 60-Day Assess Psychosocial - 90-Day Assess Psychosocial - Final Assessmen Patient Health Questionnaire Initial Assessment 1. Little interest or pleasure in doing things: More than half the days 2. Feeling down, depressed, or hopeless: Not at all 3. Trouble falling or staying asleep, or sleeping too much: More than half the days 4. Feeling tired or having little energy: More than half the days 5. Poor appetite or overeating: Several days 6. Feeling bad about yourself -- or that you are a failure or have let yourself or your family down: Not at all 7. Trouble concentrating on things, such as reading the newspaper or watching television: Not at all 8. Moving or speaking so slowly that other people could have noticed. Or the opposite - being so fidgety or restless that you have been moving around a lot more than usual: Several days 9. Thoughts that you would be better off , or of hurting yourself in some way: Not at all How difficult have these problems made it for you to do your work, take care of things at home, or get along with other people?: Somewhat difficult Total Score: 8 JAKE-Q SV Test - Statements CAD is a disease of the arteries in the heart: False Examples of risk factors for heart disease: True Angina is chest pain or discomfort: True The benefits of resistance training include: True Eating more meat and dairy products: False Anti-platelet medications such as aspirin are important: True The only effective way to manage stress: False An exercise warm-up slowly increases heart rate: I Don't Know Prepared, processed foods usually have high sodium: True Depression is common after a heart attack: I Don't Know The statin medications lower cholesterol: True To control blood pressure, lower the amount of sodium: True If someone gets chest discomfort during walking: False Transfats are partially hydrogenated vegetable oils: I Don't Know Sleep apnea that is not treated increases the risk: I Don't Know To control cholesterol, one should become a vegetarian: False Someone knows if he/she is exercising at the right level: True Diabetes cannot be prevented with exercise & health eating: False Stress is a large risk for heart attack: True A diet that can help lower blood pressure is rich in: True - Total Score Total Correct Responses: 16 Self-Efficacy Initial Assessment We would like to know how confident you are in doing certain activities. Please select your confidence level for:: Select your confidence level for the following using the scale 1-10 where 1 is not at all confident and 10 is totally confident. Your score is the average of all 6 responses. Fatigue: How confident are you that you can keep the fatigue caused by your disease from interfering with the things you want to do? Select Number: 4 Physical Discomfort or Pain: How confident are you that you can keep the physical discomfort or pain of your disease from interfering with the things you want to do? Select Number: 4 Emotional Distress: How confident are you that you can keep the emotional distress caused by your disease from interfering with the things you want to do? Select Number: 3 Other Symptoms or Health Problems: How confident are you that you can keep other symptoms or health problems from interfering with the things you want to do? Select Number: 3 Different Tasks and Activities: How confident are you that you can do the different tasks and activities needed to manage your health condition so as to reduce your need to see a doctor? Select Number: 6 Medication: How confident are you that you can do things other than just taking medication to reduce how much your illness affects your everyday life? Select Number: 6 Total Score:: 4 Nutrition Survey - Nutrition Survey Initial Have you lost >10 lbs over the past 2 months without trying?: Yes Are you following a special diet at home for diabetes, low fat, or low salt?: No Are you interested in meeting with a dietitian for help understanding your diet?: Yes Do you eat less than 3 meals a day?: Yes Do you eat fatty meats (skinner, sausage, ribs, etc), fried foods, desserts, large amounts of salad dressings, margarine, butter, or cheese most days?: Yes Do you have food allergies? [Enter types in comment field]: No Do you eat in restaurants more than 3 times a week?: No Do you season food with salt, seasoning salt, or garlic salt?: Yes Do you used canned, boxed, frozen meals, or soups, seasoning packets?: Yes Total Score:: 6
[2021-01-04 14:29] VITALS: BP 96/50; PULSE 90; O2SAT 94; BMI 35.4
[2021-01-04 14:30] VITALS: BMI 35.4
== END ==
PROVIDERS: PCP Internal Medicine; Referring Provider Internal Medicine Cardiovascular Disease; Visit Provider Internal Medicine Cardiovascular Disease
DX: I25.10 Atherosclerotic heart disease of native coronary artery without angina pectoris (principal); I25.2 Old myocardial infarction; I11.9 Hypertensive heart disease without heart failure; Z87.891 Personal history of nicotine dependence

== ENCOUNTER → 2021-01-04 13:22 | Outpatient (CLI) | payer MEDICARE, SELFPAY ==
[2021-01-04 16:39] LABS: Anion Gap 5 (5-15); BUN 20 mg/dL (7-18); Calcium,Total 8.7 mg/dL (8.5-10.1); Chloride 99 mmol/L (98-107); Creatinine, Serum 0.87 mg/dL (0.55-1.02); EST Glomerular Filtration Rate 71 mL/min (>60); Est Glom Filt Rate - Afr Amer 86 mL/min (>60); Glucose 91 mg/dL (74-106); Potassium 3.7 mmol/L (3.5-5.1); Sodium Level 138 mmol/L (136-145)
== END ==
PROVIDERS: PCP Internal Medicine; Referring Provider Physician Assistant Medical; Visit Provider Physician Assistant Medical
DX: I51.9 Heart disease, unspecified (principal)
CPT/HCPCS: 36415; 80048

== ENCOUNTER 2021-01-25 13:38 | Outpatient (RCR) | payer MEDICARE, SELFPAY ==
[2021-01-04 14:30] VITALS: BMI 35.4
== END 2021-01-26 23:59 ==
LOC: DC 13:38
PROVIDERS: PCP Internal Medicine; Visit Provider Internal Medicine Cardiovascular Disease
DX: E11.9 Type 2 diabetes mellitus without complications (principal)
CPT/HCPCS: 97802

== ENCOUNTER 2021-01-25 15:15 | Outpatient (RCR) | payer MEDICARE, SELFPAY ==
[2021-01-04 14:30] VITALS: BMI 35.4
== END 2021-01-26 23:59 ==
LOC: CR 15:15
PROVIDERS: PCP Internal Medicine; Referring Provider Internal Medicine Cardiovascular Disease; Visit Provider Internal Medicine Cardiovascular Disease
DX: I25.2 Old myocardial infarction (principal)
CPT/HCPCS: 93798

== ENCOUNTER 2021-02-22 15:45 | Outpatient (RCR) | payer MEDICARE, SELFPAY ==
[2021-01-04 14:30] VITALS: BMI 35.4
--- NOTE | 2021-02-03 08:25 | CR.ITP_ITS ---
Diagnosis Exercise - 30-day Assessment - Visit Date of Eval: 02/03/21 Session #:: 10 - Physician Prescribed Exercise Modalities: Treadmill, Biodyne, Rower, Airdyne, NuStep, SciFit Frequency: 3x/week for 12 weeks [36 sessions] Intensity: 60-80% of age predicted maximum heart rate reserve Current METSs:: 3.5 Target Heart Rate:: 92-120 Current RPE:: 13 Maximum Excercise HR:: 120 Resting Blood Pressure: 108/60 Maximum Exercise Blood Pressure: 178/64 EKG Type: SR to sinus tachy with rare pac and pvc. - Outcomes & Goals Goals:: Verbalizes understanding of THR, RPE & goal METS by session 6, Documents in home exercise log/reports 30 min aerobic 5 day/wk by DC, Demonstrates accurate pulse taking by DC, Other additional outcome/goals: see below - Intervention & Plan Exercise Program Goals: Instruct on personal THR & RPE, Instruct on MET level & personal MET goal, Show patient to take own pulse /validate performance until a ccurate, Instruct on home exercise, Other additional plan/int - 30-day Reassessments 30 day Reassessments:: Progressing - Physical Activity Home Exercise Physical Activity - Home Exercise: Safe Exercise, Warm-up, Self-monitoring, Cool-Down, Home Exercise > 30 min Daily, Sitting Time <3 hours/daily - Outcomes & Goals Outcomes/Goals: Demonstrates correct Warm-up/exercise Cool-Down (S3) if = 2.5 METs, Verbalizes symptoms of exercise intolerance by Session 3 (S3), Demonstrate safe equipment use (S3) & follows exercise prescrition (6), Other: See below - Intervention & Plan Plan/Intervention: Instruct warm-up & cool-down if exercising at > 2 METs, Instruct on symptoms of exercise intolerance & actions to take, Instruct & monitor on saf, Assess intial functional capacity & safety risk, Other See below - 30-day Reassessments 30 day Reassessments:: Progressing Nutrition - Initial Assessment Nutrition - 30-Day Assessment - Program Goals Nutrition Program Goals: LDL <100 optimal. 100 - 129 Near optimal. 130 - 159 Borderline High. 160 - 189 High. Total Cholesterol <200 desirable. 200 - 239 Borderline High. >/= 240 High. HDL < 40 Low >/=60 High. Triglycerides <150 desirable. <199 optimal. VlDL 5 - 40. HgbA1C <7%. BMI <25 Patient has diagnosis of Hyperlipidemia (ICD E78)?: Yes - Visit Date of Assessment:: 02/03/21 Session #:: 10 - Cholesterol/Lipids Determine presence & major risk factors that modify LDL goal: Cigarette smoking, Hypertension or hypertensive medication, Low HDL cholesterol <40 mg/dL*, Family history of premature CHD in Male < 55 years: female <65 yearsFa, Age men > 45 years; women >/= 55 years Outcomes/Goals: Pt IDs own risk factors & lifestyle modifications by Session 10, Verbalizes symptoms of angina & response by session 3., Pt independently manages, Other Additional Outcomes/Goals: Intervention/Plan: Advocate for lipid panel cholesterol medication if applicable, Instruct on personal lipid levels & lipid goals/NCEP guidelines, Instruct on cholesterol, Other additional plan/int Referral to dietitian:: No - declines 30-day Reassessments:: Progressing - Diabetes (Other Core Measures) Diabetes Type: Not Applicable - Weight Mgt (Other Care) Height: 5 ft 2 in Weight:: 87.543 kg BMI: 35.3 Diagnosis High BMI/Morbid Obesity BMI> 35% ICD-10 Z68: Yes Outcomes/Goals: Pt sets, maintains & shows weight loss goal & trend during rehab, Other additional outcomes/goals Intervention/Plan: Instruct on ideal BMI & set weight loss goal w/patient, Assist pt to ID & incorporate diet changes for weight loss by S9, Refer to Structured Weight Loss program as appropriate, Encourage goal of using 250- 300dcal per session for weight loss, Other additional plan/interventions 30 day Reassessments:: Progressing - Healthy Eating Habits Will attend diet classes:: Yes Outcomes/Goals:: Consume diet rich in vegs,fruits,whole grain/high fiber,fish,lean meat, Limit sat/trans fats,cholesterol & added salts & sugars, Other additional outcome/goals: Intervention/Plan:: Assess current eating habits, Other Additional plan/interventions 30-day Reassessments:: Progressing - Education Gave educational materials for:: Signs & symptoms of hypoglycemia, Signs & symptoms of hyperglycemia, Relate diabetes to coronary artery disease, Healthy eating Nutrition - 60-Day Assessment Nutrition - 90-Day Assessment Nutrition - Final Assessment Medical - Initial Assessment Medical- 30-Day Assessment - Visit Date of Eval: 02/03/21 Session #:: 10 - Medication Compliance Preventative Medication(s):: Aspirin, MOSHE inhibitor, Clopidogrel/P2Y12 inhibit, Statin/lipid, Beta simona H/O mental health issues: depression, anxiety, or addiction?: Yes Doesn?t believe in the benefits of treatment?: No Believes medications are unnecessary or harmful?: No Has a concern about medication side effects?: No Expresses concern over the cost of medications?: No Outcomes/Goals: Verbalizes medications,desired effect & common side effects @ DC, Pt self-reports following medication regimen, Keeps card in wallet w/medications listed by DC, Other additional outcome/goals: Interventions/plans: Instruct on medication effects & side effects, Review medication list w/patient every two weeks, Instruct importance of taking meds as ordered & assist problem solving, Other additional 30-day Reassessments:: Progressing - Tobacco Use Tobacco Use: Non-smoker 30-day Reassessments:: Progressing - Hypertension Hypertension Diagnosis:: Hypertension ICD-10 I10 Resting Blood Pressure:: 108/60 [place] [employer] Hypertension Guidelines: [place] [employer] Hypertension Guidelines. Normal BP Less than 120/80. Elevated BP 120/80. Hypertension Stage 1: BP 130-139/80-89. Hypertesnion Stage 2: BP 140 or higher/90 or higher. Hypertension Crisis: BP higher than 180/120 Peak Exercise Blood Pressure:: 178/64 Outcomes/Goals: Able to verbalize/achieve optimal blood pressure <130/80, Incorporates diet changes & exercise for blood pressure control by DC, Other additional outcomes/goals Interventions/plan: Instruct on optimal blood pressure, hypertension & medications, Instruct on effects of sodium, alcohol, stress, exercise &hypertension, Other additional plan/interventions 30 day Reassessments:: Progressing - Tobacco Cessation Referral Smoking Cessation Referral:: No Individual Education/Counseling:: No Education Schedule Given:: Yes Medical- 60-Day Assessment Medical- 90-Day Assessment Medical - Final Assessment Psychosocial - Initial Assess Psychosocial - 30-Day Assess - VIsit Date of Eval: 02/03/21 Session #:: 10 History of previous Mental disease:: Yes History of Emotional Disorders: Depression - Outcomes/Goals: See list Psychosocial Outcomes/Goals:: ID's personal stressors & 2 strategies to manage stress by discharge, Other Additional outcome/goals: - Intervention/Plan: See List Interventions/Plan:: Assess stressors,coping strategies & signs of derpression on admission, Instruct/assist pt to develop coping & personal stress Mgt strategies, Refer to Behavioral Health if appropriate, Refer to Physician if appropriate, Instruct patient to recognize signs & symptoms of depression, Instruct patient to recog, Other additional plan/intervention - 30-day Reassessments: 30 day Reassessments:: Progressing Psychosocial - 60-Day Assess Psychosocial - 90-Day Assess Psychosocial - Final Assessmen Patient Health Questionnaire 30-Day Re-eval Assessment 1. Little interest or pleasure in doing things: More than half the days 2. Feeling down, depressed, or hopeless: Not at all 3. Trouble falling or staying asleep, or sleeping too much: More than half the days 4. Feeling tired or having little energy: More than half the days 5. Poor appetite or overeating: Several days 6. Feeling bad about yourself -- or that you are a failure or have let yourself or your family down: Not at all 7. Trouble concentrating on things, such as reading the newspaper or watching television: Not at all 8. Moving or speaking so slowly that other people could have noticed. Or the opposite - being so fidgety or restless that you have been moving around a lot more than usual: Several days 9. Thoughts that you would be better off , or of hurting yourself in some way: Not at all How difficult have these problems made it for you to do your work, take care of things at home, or get along with other people?: Somewhat difficult Total Score: 8 Self-Efficacy 30-Day Re-eval Assessment We would like to know how confident you are in doing certain activities. Please select your confidence level for:: Select your confidence level for the following using the scale 1-10 where 1 is not at all confident and 10 is totally confident. Your score is the average of all 6 responses. Fatigue: How confident are you that you can keep the fatigue caused by your disease from interfering with the things you want to do? Select Number: 4 Physical Discomfort or Pain: How confident are you that you can keep the physical discomfort or pain of your disease from interfering with the things you want to do? Select Number: 4 Emotional Distress: How confident are you that you can keep the emotional distress caused by your disease from interfering with the things you want to do? Select Number: 3 Other Symptoms or Health Problems: How confident are you that you can keep other symptoms or health problems from interfering with the things you want to do? Select Number: 3 Different Tasks and Activities: How confident are you that you can do the different tasks and activities needed to manage your health condition so as to reduce your need to see a doctor? Select Number: 6 Medication: How confident are you that you can do things other than just taking medication to reduce how much your illness affects your everyday life? Select Number: 6 Total Score:: 4 Nutrition Survey
[2021-02-03 08:36] VITALS: BP 108/60; BP 178/64; BMI 35.3
== END 2021-02-26 23:59 ==
LOC: CR 15:45
PROVIDERS: PCP Internal Medicine; Referring Provider Internal Medicine Cardiovascular Disease; Visit Provider Internal Medicine Cardiovascular Disease
DX: I25.2 Old myocardial infarction (principal)
CPT/HCPCS: 93798

== ENCOUNTER 2021-03-01 14:56 | Outpatient (RCR) | payer MEDICARE, SELFPAY ==
[2021-01-04 14:30] VITALS: BMI 35.4
[2021-02-03 08:36] VITALS: BMI 35.3
== END 2021-03-28 23:59 ==
LOC: DC 14:56
PROVIDERS: PCP Internal Medicine; Visit Provider Internal Medicine Cardiovascular Disease
DX: E11.9 Type 2 diabetes mellitus without complications (principal)
CPT/HCPCS: G0108

== ENCOUNTER 2021-03-27 15:45 | Outpatient (RCR) | payer MEDICARE, SELFPAY ==
[2021-02-03 08:36] VITALS: BMI 35.3
[2021-02-27 00:28] VITALS: BP 108/60; BP 178/64
--- NOTE | 2021-03-03 10:56 | CR.ITP_ITS ---
Diagnosis Exercise - 60-day Assessment - Visit Date of Eval: 03/03/21 Session #:: 19 - Physician Prescribed Exercise Modalities: Treadmill, NuStep, SciFit Frequency: 3x/week for 12 weeks [36 sessions] Intensity: 60-80% of age predicted maximum heart rate reserve Current METSs:: 3.5 unchanged Target Heart Rate:: 92-120 Current RPE:: 13-14 Maximum Excercise HR:: 120 Resting Blood Pressure: 110/56 Maximum Exercise Blood Pressure: 154/70 EKG Type: SR to sinus tach with rare PAC rare PVC - Outcomes & Goals Goals:: Verbalizes understanding of THR, RPE & goal METS by session 6, Documents in home exercise log/reports 30 min aerobic 5 day/wk by DC, Demonstrates accurate pulse taking by DC - Intervention & Plan Exercise Program Goals: Instruct on personal THR & RPE, Instruct on MET level & personal MET goal, Show patient to take own pulse /validate performance until accurate, Instruct on home exercise - 30-day Reassessments 30 day Reassessments:: Progressing - Physical Activity Home Exercise Physical Activity - Home Exercise: Safe Exercise, Warm-up, Self-monitoring, Cool-Down, Home Exercise > 30 min Daily, Sitting Time <3 hours/daily - Outcomes & Goals Outcomes/Goals: Demonstrates correct Warm-up/exercise Cool-Down (S3) if = 2.5 METs, Verbalizes symptoms of exercise intolerance by Session 3 (S3), Demonstrate safe equipment use (S3) & follows exercise prescrition (6) - Intervention & Plan Plan/Intervention: Instruct warm-up & cool-down if exercising at > 2 METs, Instruct on symptoms of exercise intolerance & actions to take, Instruct & monitor on saf, Assess intial functional capacity & safety risk - 30-day Reassessments 30 day Reassessments:: Progressing Nutrition - Initial Assessment Nutrition - 30-Day Assessment Nutrition - 60-Day Assessment - Program Goals Nutrition Program Goals: LDL <100 optimal. 100 - 129 Near optimal. 130 - 159 Borderline High. 160 - 189 High. Total Cholesterol <200 desirable. 200 - 239 Borderline High. >/= 240 High. HDL < 40 Low >/=60 High. Triglycerides <150 desirable. <199 optimal. VlDL 5 - 40. HgbA1C <7%. BMI <25 Patient has diagnosis of Hyperlipidemia (ICD E78)?: Yes - Visit Date of Assessment:: 03/03/21 Session #:: 19 - Cholesterol/Lipids Triglycerides (mg/dL): 326 Total Cholesterol (mg/dL): 270 LDL Cholesterol (mg/dL): 162 HDL Cholesterol (mg/dL): 43 Determine presence & major risk factors that modify LDL goal: Hypertension or hypertensive medication, Family history of premature CHD in Male < 55 years: female <65 yearsFa, Age men > 45 years; women >/= 55 years Outcomes/Goals: Pt IDs own risk factors & lifestyle modifications by Session 10, Verbalizes symptoms of angina & response by session 3., Pt independently manages Intervention/Plan: Instruct on personal lipid levels & lipid goals/NCEP guidelines, Instruct on cholesterol Referral to dietitian:: No - Patient was scheduled for 01/25/2021 @ 1:30 PM 30-day Reassessments:: Progressing - Diabetes (Other Core Measures) Diabetes Type: Not Applicable - Weight Mgt (Other Care) Not Applicable: No Height: 5 ft 2 in Weight:: 192 lb 8 oz BMI: 35.2 Diagnosis Overweight/Obesity BMI> 30% ICD-10 E66: Yes Diagnosis High BMI/Morbid Obesity BMI> 35% ICD-10 Z68: Yes Outcomes/Goals: Pt sets, maintains & shows weight loss goal & trend during rehab Intervention/Plan: Instruct on ideal BMI & set weight loss goal w/patient, Assist pt to ID & incorporate diet changes for weight loss by S9, Encourage goal of using 250-300dcal per session for weight loss 30 day Reassessments:: Not Met - Patient has made no gains in weight loss. - Healthy Eating Habits Will attend diet classes:: No Outcomes/Goals:: Consume diet rich in vegs,fruits,whole grain/high fiber,fish,lean meat, Limit sat/trans fats,cholesterol & added salts & sugars Intervention/Plan:: Assess current eating habits 30-day Reassessments:: Progressing - Education Gave educational materials for:: Healthy eating Nutrition - 90-Day Assessment Nutrition - Final Assessment Medical - Initial Assessment Medical- 30-Day Assessment Medical- 60-Day Assessment - Visit Date of Eval: 03/03/21 Session #:: 19 - Medication Compliance Preventative Medication(s):: Aspirin, Clopidogrel/P2Y12 inhibit, Statin/lipid, Beta simona H/O mental health issues: depression, anxiety, or addiction?: Yes Doesn?t believe in the benefits of treatment?: No Believes medications are unnecessary or harmful?: No Has a concern about medication side effects?: No Expresses concern over the cost of medications?: No Outcomes/Goals: Verbalizes medications,desired effect & common side effects @ DC, Pt self-reports following medication regimen, Keeps card in wallet w/medications listed by DC Interventions/plans: Instruct on medication effects & side effects, Review medication list w/patient every two weeks, Instruct importance of taking meds as ordered & assist problem solving 30-day Reassessments:: Progressing - Tobacco Use Tobacco Use: Non-smoker - Hypertension Hypertension Diagnosis:: Hypertension ICD-10 I10 Resting Blood Pressure:: 110/56 [place] [employer] Hypertension Guidelines: [place] [employer] Hypertension Guidelines. Normal BP Less than 120/80. Elevated BP 120/80. Hypertension Stage 1: BP 130-139/80-89. Hypertesnion Stage 2: BP 140 or higher/90 or higher. Hypertension Crisis: BP higher than 180/120 Peak Exercise Blood Pressure:: 154/70 Outcomes/Goals: Able to verbalize/achieve optimal blood pressure <130/80, Incorporates diet changes & exercise for blood pressure control by DC Interventions/plan: Instruct on optimal blood pressure, hypertension & medications, Instruct on effects of sodium, alcohol, stress, exercise &hypertension 30 day Reassessments:: Progressing - Tobacco Cessation Referral Smoking Cessation Referral:: No Individual Education/Counseling:: No Education Schedule Given:: Yes Medical- 90-Day Assessment Medical - Final Assessment Psychosocial - Initial Assess Psychosocial - 30-Day Assess Psychosocial - 60-Day Assess - VIsit Date of Eval: 03/03/21 Session #:: 19 Not Applicable: No History of previous Mental disease:: Yes History of Emotional Disorders: Depression - Psychosocial Test Tool Used:: PHQ-9 Questionnaire phq-9 Severity: Severity. 1-4 Minimal Depression. 5-9 Mild Depression. 10-14 Moderate Depression. 15-19 Moderately Sever Depression. 20-27 Severe Depression. Rule: - Referral to Behavioral Health PS - Interventions: Yes Attend Stress Management Classes, No Referral to Behavioral Health if PHQ-9 score >9:, No Referral to [facility], No Referral to Physician if PHQ-9 if score is 5-9: - Outcomes/Goals: See list Psychosocial Outcomes/Goals:: ID's personal stressors & 2 strategies to manage stress by discharge - Intervention/Plan: See List Interventions/Plan:: Assess stressors,coping strategies & signs of derpression on admission, Instruct/assist pt to develop coping & personal stress Mgt strategies, Instruct patient to recognize signs & symptoms of depression, Instruct patient to recog - 30-day Reassessments: 30 day Reassessments:: Progressing Psychosocial - 90-Day Assess Psychosocial - Final Assessmen Patient Health Questionnaire 60-Day Re-eval Assessment 1. Little interest or pleasure in doing things: More than half the days 2. Feeling down, depressed, or hopeless: Not at all 3. Trouble falling or staying asleep, or sleeping too much: Several days 4. Feeling tired or having little energy: Several days 5. Poor appetite or overeating: Several days 6. Feeling bad about yourself -- or that you are a failure or have let yourself or your family down: Not at all 7. Trouble concentrating on things, such as reading the newspaper or watching television: Not at all 8. Moving or speaking so slowly that other people could have noticed. Or the opposite - being so fidgety or restless that you have been moving around a lot more than usual: Several days 9. Thoughts that you would be better off , or of hurting yourself in some way: Not at all How difficult have these problems made it for you to do your work, take care of things at home, or get along with other people?: Somewhat difficult Total Score: 6 Self-Efficacy 60-Day Re-eval Assessment We would like to know how confident you are in doing certain activities. Please select your confidence level for:: Select your confidence level for the following using the scale 1-10 where 1 is not at all confident and 10 is totally confident. Your score is the average of all 6 responses. Fatigue: How confident are you that you can keep the fatigue caused by your disease from interfering with the things you want to do? Select Number: 4 Physical Discomfort or Pain: How confident are you that you can keep the physical discomfort or pain of your disease from interfering with the things you want to do? Select Number: 4 Emotional Distress: How confident are you that you can keep the emotional distress caused by your disease from interfering with the things you want to do? Select Number: 3 Other Symptoms or Health Problems: How confident are you that you can keep other symptoms or health problems from interfering with the things you want to do? Select Number: 3 Different Tasks and Activities: How confident are you that you can do the different tasks and activities needed to manage your health condition so as to reduce your need to see a doctor? Select Number: 6 Medication: How confident are you that you can do things other than just taking medication to reduce how much your illness affects your everyday life? Select Number: 5 Total Score:: 4 Nutrition Survey
[2021-03-03 11:07] VITALS: BP 110/56; BP 154/70; BMI 35.2
== END 2021-03-28 23:59 ==
LOC: CR 15:45
PROVIDERS: PCP Internal Medicine; Referring Provider Internal Medicine Cardiovascular Disease; Visit Provider Internal Medicine Cardiovascular Disease
DX: I25.2 Old myocardial infarction (principal)
CPT/HCPCS: 93798

== ENCOUNTER → 2021-03-29 11:01 | Outpatient (CLI) | payer MEDICARE, SELFPAY ==
[2021-03-03 11:07] VITALS: BMI 35.2
--- NOTE | 2021-03-29 11:04 | ECHOCS_ITS ---
Reason For Study: CHF Procedure This was a 2D Doppler, Color Flow transthoracic echocardiogram. Technically difficult study due to patients body habitus. Contrast injection performed. The study was technically difficult. Contrast injection was performed. Exam performed in department. Left Ventricle Based upon the 2D echocardiographic and contrast enhanced images obtained there appears to be grossly normal left ventricular size, wall motion, and systolic function. The estimated ejection fraction is 65 %. Transmitral doppler flow suggestive of impaired relaxation of left ventricle. Right Ventricle Normal RV size. Normal systolic function. Atria The left atrium is mildly enlarged. Normal right atrium. No doppler evidence for ASD. Mitral Valve There is no mitral annular calcification. Normal mitral valve. Trivial mitral valve insufficiency. Tricuspid Valve Normal tricuspid valve. Trivial tricuspid valve insufficiency. Unable to estimate RV systolic pressure due to insufficient tricuspid regurgitant envelope. Aortic Valve Trisinus/trileaflet aortic valve. Normal aortic valve. Pulmonic Valve The pulmonic valve is not well visualized. Trivial pulmonic valve insufficiency. Great Vessels Normal sized aortic root. Pericardium/Pleural Epicardial fat. No pericardial effusion. Medication 22 gauge I.V. with prn adaptor inserted into right arm. Diluted definity 4ml given slow IV push to enhance endocardial definition. MMode/2D Measurements & Calculations LVIDd: 4.6 cm IVSd: 1.0 cm Ao root diam: 3.0 cm LVIDs: 3.2 cm LVPWd: 1.2 cm LA dimension: 4.1 cm FS: 31.7 % LAV(MOD-bp): 37.6 ml LA A4 area: 17.5 cm2 RA A4 area: 14.4 cm2 LAV(MOD-bp) Indexed: 20.2 ml/m2 LAV(MOD-sp2): 28.0 ml LAV(MOD-sp4): 46.9 ml Time Measurements MV dec time: 0.28 sec Doppler Measurements & Calculations MV E max jose: 59.3 cm/sec Lat Peak E' Jose: 7.4 cm/sec Med Peak E' Jose: 7.8 cm/sec MV A max jose: 81.2 cm/sec E/E' lat: 8.0 E/E' med: 7.6 MV E/A: 0.73 MV V2 max: 76.4 cm/sec MV P1/2t max jose: 64.1 cm/sec Ao V2 max: 165.0 cm/sec MV max P.3 mmHg MV P1/2t: 85.1 msec Ao max P.9 mmHg MV V2 mean: 41.9 cm/sec MV dec slope: 220.4 cm/sec2 MV mean P.82 mmHg MV V2 VTI: 17.6 cm MVA(P1/2t): 2.6 cm2 LV V1 max: 136.6 cm/sec PA V2 max: 115.6 cm/sec LV V1 max P.5 mmHg ECHO/Echo Complete W/ Contrast Interpretation Summary The study was technically difficult. Contrast injection was performed. Based upon the 2D echocardiographic and contrast enhanced images obtained there appears to be grossly normal left ventricular size, wall motion, and systolic function. The estimated ejection fraction is 65 %. The left atrium is mildly enlarged. Trivial mitral valve insufficiency. Trivial tricuspid valve insufficiency. Trivial pulmonic valve insufficiency. Epicardial fat. Unable to estimate RV systolic pressure due to insufficient tricuspid regurgita nt envelope. Transmitral doppler flow suggestive of impaired relaxation of left ventricle Ordering Physician: Jocelyn Cowan Referring Physician: Keren Bustamante M.D. Performed By: Valente Broussard RCS
== END ==
PROVIDERS: PCP Internal Medicine; Referring Provider Physician Assistant Medical; Visit Provider Physician Assistant Medical
DX: I21.4 Non-ST elevation (NSTEMI) myocardial infarction (principal)
CPT/HCPCS: 93306; Q9957; A4216; C8929; J3490

== ENCOUNTER 2021-03-29 15:38 | Outpatient (RCR) | payer MEDICARE, SELFPAY ==
[2021-03-03 11:07] VITALS: BMI 35.2
== END 2021-04-28 23:59 ==
LOC: DC 15:38
PROVIDERS: PCP Internal Medicine; Visit Provider Internal Medicine Cardiovascular Disease
DX: E11.9 Type 2 diabetes mellitus without complications (principal)
CPT/HCPCS: G0108

== ENCOUNTER 2021-04-17 15:45 | Outpatient (RCR) | payer MEDICARE, SELFPAY ==
[2021-03-03 11:07] VITALS: BMI 35.2
[2021-03-29 00:32] VITALS: BP 110/56; BP 154/70
--- NOTE | 2021-03-31 09:55 | PCM.CR.ITP ---
Diagnosis Exercise - 90-day Assessment - Visit Date of Eval: 03/31/21 Session #:: 29 - Physician Prescribed Exercise Modalities: Treadmill, NuStep, SciFit Frequency: 3x/week for 12 weeks [36 sessions] Intensity: 60-80% of age predicted maximum heart rate reserve Current METSs:: 3.5 Target Heart Rate:: 92-120 Current RPE:: 13-14 Maximum Excercise HR:: 124 Resting Blood Pressure: 112/62 Maximum Exercise Blood Pressure: 140/60 EKG Type: Sinus rhythm with sinus tach, rare PAC PVC - Outcomes & Goals Goals:: Verbalizes understanding of THR, RPE & goal METS by session 6, Documents in home exercise log/reports 30 min aerobic 5 day/wk by DC, Demonstrates accurate pulse taking by DC - Intervention & Plan Exercise Program Goals: Instruct on personal THR & RPE, Instruct on MET level & personal MET goal, Show patient to take own pulse /validate performance until accurate, Instruct on home exercise - 30-day Reassessments 30 day Reassessments:: Progressing - Physical Activity Home Exercise Physical Activity - Home Exercise: Safe Exercise, Warm-up, Self-monitoring, Cool-Down, Home Exercise > 30 min Daily, Sitting Time <3 hours/daily - Outcomes & Goals Outcomes/Goals: Demonstrates correct Warm-up/exercise Cool-Down (S3) if = 2.5 METs, Verbalizes symptoms of exercise intolerance by Session 3 (S3), Demonstrate safe equipment use (S3) & follows exercise prescrition (6) - Intervention & Plan Plan/Intervention: Instruct warm-up & cool-down if exercising at > 2 METs, Instruct on symptoms of exercise intolerance & actions to take, Instruct & monitor on saf, Assess intial functional capacity & safety risk - 30-day Reassessments 30 day Reassessments:: Progressing Nutrition - Initial Assessment Nutrition - 30-Day Assessment Nutrition - 60-Day Assessment Nutrition - 90-Day Assessment - Program Goals Nutrition Program Goals: LDL <100 optimal. 100 - 129 Near optimal. 130 - 159 Borderline High. 160 - 189 High. Total Cholesterol <200 desirable. 200 - 239 Borderline High. >/= 240 High. HDL < 40 Low >/=60 High. Triglycerides <150 desirable. <199 optimal. VlDL 5 - 40. HgbA1C <7%. BMI <25 Patient has diagnosis of Hyperlipidemia (ICD E78)?: Yes - Visit Date of Assessment:: 03/31/21 Session #:: 29 - Cholesterol/Lipids Determine presence & major risk factors that modify LDL goal: Hypertension or hypertensive medication, Family history of premature CHD in Male < 55 years: female <65 yearsFa, Age men > 45 years; women >/= 55 years Outcomes/Goals: Pt IDs own risk factors & lifestyle modifications by Session 10, Verbalizes symptoms of angina & response by session 3., Pt independently manages Intervention/Plan: Instruct on personal lipid levels & lipid goals/NCEP guidelines, Instruct on cholesterol Referral to dietitian:: No - Diabetes (Other Core Measures) Diabetes Type: Not Applicable - Weight Mgt (Other Care) Not Applicable: Yes Height: 5 ft 2 in Weight:: 188 lb BMI: 34.4 Diagnosis Overweight/Obesity BMI> 30% ICD-10 E66: Yes Diagnosis High BMI/Morbid Obesity BMI> 35% ICD-10 Z68: No Outcomes/Goals: Pt sets, maintains & shows weight loss goal & trend during rehab Intervention/Plan: Instruct on ideal BMI & set weight loss goal w/patient, Assist pt to ID & incorporate diet changes for weight loss by S9, Encourage goal of using 250-300dcal per session for weight loss 30 day Reassessments:: Progressing - Healthy Eating Habits Will attend diet classes:: Yes Outcomes/Goals:: Consume diet rich in vegs,fruits,whole grain/high fiber,fish,lean meat, Limit sat/trans fats,cholesterol & added salts & sugars Intervention/Plan:: Assess current eating habits 30-day Reassessments:: Progressing - Education Gave educational materials for:: Healthy eating Nutrition - Final Assessment Medical - Initial Assessment Medical- 30-Day Assessment Medical- 60-Day Assessment Medical- 90-Day Assessment - Visit Date of Eval: 03/31/21 Session #:: 29 - Medication Compliance Preventative Medication(s):: Aspirin, Clopidogrel/P2Y12 inhibit, Beta simona H/O mental health issues: depression, anxiety, or addiction?: No Doesn?t believe in the benefits of treatment?: No Believes medications are unnecessary or harmful?: No Has a concern about medication side effects?: No Expresses concern over the cost of medications?: No Outcomes/Goals: Verbalizes medications,desired effect & common side effects @ DC, Pt self-reports following medication regimen, Keeps card in wallet w/medications listed by DC Interventions/plans: Instruct on medication effects & side effects, Review medication list w/patient every two weeks, Instruct importance of taking meds as ordered & assist problem solving 30-day Reassessments:: Progressing - Tobacco Use Tobacco Use: Non-smoker - Hypertension Hypertension Diagnosis:: Hypertension ICD-10 I10 Resting Blood Pressure:: 112/62 [place] [employer] Hypertension Guidelines: [place] [employer] Hypertension Guidelines. Normal BP Less than 120/80. Elevated BP 120/80. Hypertension Stage 1: BP 130-139/80-89. Hypertesnion Stage 2: BP 140 or higher/90 or higher. Hypertension Crisis: BP higher than 180/120 Peak Exercise Blood Pressure:: 140/60 Outcomes/Goals: Able to verbalize/achieve optimal blood pressure <130/80 Interventions/plan: Instruct on optimal blood pressure, hypertension & medications, Instruct on effects of sodium, alcohol, stress, exercise &hypertension 30 day Reassessments:: Progressing - Tobacco Cessation Referral Smoking Cessation Referral:: No Individual Education/Counseling:: No Education Schedule Given:: Yes Medical - Final Assessment Psychosocial - Initial Assess Psychosocial - 30-Day Assess Psychosocial - 60-Day Assess Psychosocial - 90-Day Assess - VIsit Date of Eval: 03/31/21 Session #:: 29 Not Applicable: Yes History of previous Mental disease:: No - Psychosocial Test Tool Used:: PHQ-9 Questionnaire phq-9 Severity: Severity. 1-4 Minimal Depression. 5-9 Mild Depression. 10-14 Moderate Depression. 15-19 Moderately Sever Depression. 20-27 Severe Depression. Rule: - Referral to Behavioral Health PS - Interventions: Yes Attend Stress Management Classes, No Referral to Behavioral Health if PHQ-9 score >9:, No Referral to [facility], No Referral to Physician if PHQ-9 if score is 5-9: - Outcomes/Goals: See list Psychosocial Outcomes/Goals:: ID's personal stressors & 2 strategies to manage stress by discharge - Intervention/Plan: See List Interventions/Plan:: Assess stressors,coping strategies & signs of derpression on admission, Instruct/assist pt to develop coping & personal stress Mgt strategies, Instruct patient to recognize signs & symptoms of depression, Instruct patient to recog - 30-day Reassessments: 30 day Reassessments:: Progressing Psychosocial - Final Assessmen Patient Health Questionnaire 90-Day Re-eval Assessment 1. Little interest or pleasure in doing things: Not at all 2. Feeling down, depressed, or hopeless: Not at all 3. Trouble falling or staying asleep, or sleeping too much: Several days 4. Feeling tired or having little energy: Not at all 5. Poor appetite or overeating: Not at all 6. Feeling bad about yourself -- or that you are a failure or have let yourself or your family down: Not at all 8. Moving or speaking so slowly that other people could have noticed. Or the opposite - being so fidgety or restless that you have been moving around a lot more than usual: Not at all 9. Thoughts that you would be better off , or of hurting yourself in some way: Not at all How difficult have these problems made it for you to do your work, take care of things at home, or get along with other people?: Somewhat difficult Total Score: 1 Self-Efficacy 90-Day Re-eval Assessment We would like to know how confident you are in doing certain activities. Please select your confidence level for:: Select your confidence level for the following using the scale 1-10 where 1 is not at all confident and 10 is totally confident. Your score is the average of all 6 responses. Fatigue: How confident are you that you can keep the fatigue caused by your disease from interfering with the things you want to do? Select Number: 7 Physical Discomfort or Pain: How confident are you that you can keep the physical discomfort or pain of your disease from interfering with the things you want to do? Select Number: 7 Emotional Distress: How confident are you that you can keep the emotional distress caused by your disease from interfering with the things you want to do? Select Number: 7 Other Symptoms or Health Problems: How confident are you that you can keep other symptoms or health problems from interfering with the things you want to do? Select Number: 7 Different Tasks and Activities: How confident are you that you can do the different tasks and activities needed to manage your health condition so as to reduce your need to see a doctor? Select Number: 7 Medication: How confident are you that you can do things other than just taking medication to reduce how much your illness affects your everyday life? Select Number: 7 Total Score:: 7 Nutrition Survey
[2021-03-31 10:10] VITALS: BP 112/62; BP 140/60; BMI 34.4
== END 2021-04-28 23:59 ==
LOC: CR 15:45
PROVIDERS: PCP Internal Medicine; Referring Provider Internal Medicine Cardiovascular Disease; Visit Provider Internal Medicine Cardiovascular Disease
DX: I25.2 Old myocardial infarction (principal)
CPT/HCPCS: 93798

== ENCOUNTER → 2021-09-14 | Outpatient (CLI) | payer MEDICARE, SELFPAY ==
[2021-03-31 10:10] VITALS: BMI 34.4
--- NOTE | 2021-09-14 12:18 | RAD_ITS ---
STUDY: X-RAY CHEST REASON FOR EXAM: Female, 60 years old. Shortness of breath TECHNIQUE: Frontal and lateral views of the chest. COMPARISON: 12/14/2020. FINDINGS: The lungs are clear and expanded. There is no demonstrated pleural abnormality. Normal size heart. Normal mediastinum and ovi. Normal visualized pulmonary arteries. Normal visualized aortic arch and descending thoracic aorta. Mild old compression fractures in the lower thoracic spine . Normal visualized ribs, clavicles, and shoulders. There is no demonstrated abnormality of the visualized soft tissue structures of the upper abdomen. RAD/Chest PA and Lateral IMPRESSION: Normal x-ray examination of the chest. Electronically Signed: Emma Asif MD at 1:35 EDT ,
[2021-09-14 12:51] LABS: Hematocrit 37.5 % (37-47); Hemoglobin 12.1 g/dL (12.0-15.0); Mean Corp Hgb Conc 32.3 g/dL (32-36); Mean Corpuscular Hgb 31.6 pg (27.0-32.0); Mean Corpuscular Volume 97.9 fL (81-99); Mean Platelet Vol. 9.2 fl (6.2-12.0); Platelet Count 246 K/mm3 (150-450); RBC Distribution Width CV 12.9 % (11.6-14.6); RBC Distribution Width SD 45.9 fl (35.1-43.9); Red Blood Count 3.83 M/mm3 (4.2-5.4); White Blood Count 7.9 K/mm3 (4.4-11.0)
[2021-09-14 13:24] LABS: AST(SGOT) 29 U/L (15-37); Alanine Aminotransfer ALT/SGPT 60 U/L (13-56); Albumin, Serum 3.5 g/dL (3.2-5.0); Alkaline Phosphatase 86 U/L (45-117); Anion Gap 8 (5-15); BUN 18 mg/dL (7-18); BUN/Creat Ratio 20.3 RATIO (10-20); Calcium,Total 8.7 mg/dL (8.5-10.1); Chloride 103 mmol/L (98-107); Creatinine, Serum 0.88 mg/dL (0.55-1.02); EST Glomerular Filtration Rate 69 mL/min (>60); Est Glom Filt Rate - Afr Amer 84 mL/min (>60); Globulin 3.6 g/dL (2.2-4.2); Glucose 133 mg/dL (74-106); Protein, Total 7.1 g/dL (6.4-8.2); Sodium Level 140 mmol/L (136-145)
== END | disposition home or self-care (01) ==
PROVIDERS: PCP Internal Medicine; Referring Provider Physician Assistant Medical; Visit Provider Physician Assistant Medical
DX: R53.83 Other fatigue (principal); R06.02 Shortness of breath; M62.81 Muscle weakness (generalized); I25.2 Old myocardial infarction
CPT/HCPCS: 36415; 71046; 80053; 83880; 85027

== ENCOUNTER → 2021-10-20 | Outpatient (CLI) | payer MEDICARE, SELFPAY ==
[2021-03-31 10:10] VITALS: BMI 34.4
[2021-10-20 08:58] LABS: AST(SGOT) 17 U/L (15-37); Alanine Aminotransfer ALT/SGPT 30 U/L (13-56); Alkaline Phosphatase 75 U/L (45-117); Bilirubin, Direct 0.07 mg/dL (0.00-0.30); Cholesterol 124 mg/dL (200); Globulin 3.2 g/dL (2.2-4.2); High Density Lipoprotein 51 mg/dL; Protein, Total 6.2 g/dL (6.4-8.2); Triglycerides 138 mg/dL; Very Low Density Lipoprotein 28 mg/dL (5-40)
== END | disposition home or self-care (01) ==
LOC: LAB 07:27
PROVIDERS: PCP Internal Medicine; Referring Provider Internal Medicine Cardiovascular Disease; Visit Provider Internal Medicine Cardiovascular Disease
DX: E78.00 Pure hypercholesterolemia, unspecified (principal); I11.9 Hypertensive heart disease without heart failure; I25.10 Atherosclerotic heart disease of native coronary artery without angina pectoris; I25.2 Old myocardial infarction; R07.9 Chest pain, unspecified
CPT/HCPCS: 36415; 80061; 80076

== ENCOUNTER → 2021-10-26 | Outpatient (CLI) | payer MEDICARE, SELFPAY ==
[2021-03-31 10:10] VITALS: BMI 34.4
--- NOTE | 2021-10-26 10:14 | STRESSREP ---
Stress Test Report Date: 10-26-2021 Procedure: Pharmacologic stress nuclear imaging study Indications: Chest pain; CAD; non-ST segment elevation [place]; Takotsubo syndrome Consent: Per the patient Procedure: The patient underwent pharmacologic (Regadenoson 0.4mg ) evaluation with a peak heart rate of 100 beats per minute (62%predicted maximal heart rate) and a peak blood pressure of 106/64 mmHg. The baseline ECG demonstrated normal sinus rhythm. The peak pharmacologic ECG demonstrated no obvious ECG changes. There were no cardiac dysrhythmias pretest, during pharmacologic infusion, or recovery. There was no complaint of chest discomfort during pharmacologic infusion or recovery. The examination was discontinued secondary to completion of protocol. Impression: 1. Pharmacologic (Regadenoson) evaluation 2. Peak pharmacologic ECG with no obvious ECG changes. 3. There were no cardiac dysrhythmias pretest, during pharmacologic infusion, or recovery. 4. Nuclear images pending Myocardial perfusion imaging study: Technique: The patient was injected with 14.6 millicuries of technetium 99m Cardiolite and subsequently rest SPECT Cardiolite nuclear imaging was obtained in the horizontal long, vertical long, and short axis views. The patient underwent pharmacologic (Regadenoson) evaluation with a peak heart rate of 100 beats per minute (62% percent predicted maximal heart rate) and a peak blood pressure of 106/64 mmHg. The patient was injected with 44.5 millicuries of technetium 99m Cardiolite and subsequently stress SPECT Cardiolite nuclear imaging was obtained in the horizontal long, vertical long, and short axis views. A gated Cardiolite study at peak stress was not obtained. Interpretation: Rest and stress SPECT Cardiolite nuclear imaging status post realignment, normalization, and attenuation correction demonstrate the appearance of relative uniform tracer uptake and myocardial perfusion within normal limits at rest. Status post stress there is a small area of diminished myocardial perfusion/tracer uptake in the very distal anterior lateral/lateral apical segments. Impression: 1. Rest and stress SPECT her nuclear imaging demonstrate myocardial perfusion changes appearing compatible with an area of stress-induced myocardial ischemia in the very distal anterior lateral/lateral apical segments. 2. A gated Cardiolite study at peak stress was not obtained. This note was generated with [employer] software. It may contain incorrect words, spelling, and punctuation that were not noted in checking the note before signing.
== END | disposition home or self-care (01) ==
PROVIDERS: PCP Internal Medicine; Referring Provider Internal Medicine Cardiovascular Disease; Visit Provider Internal Medicine Cardiovascular Disease
DX: I25.10 Atherosclerotic heart disease of native coronary artery without angina pectoris (principal); I25.2 Old myocardial infarction; I11.9 Hypertensive heart disease without heart failure; R07.9 Chest pain, unspecified
CPT/HCPCS: 78452; 93017; A9500; A4216; J2785

== ENCOUNTER → 2021-11-07 | Outpatient (CLI) | payer MEDICARE, SELFPAY ==
[2021-03-31 10:10] VITALS: BMI 34.4
[2021-11-07 12:35] LABS: Hematocrit 36.1 % (37-47); Hemoglobin 11.2 g/dL (12.0-15.0); Mean Corpuscular Hgb 30.9 pg (27.0-32.0); Mean Corpuscular Volume 99.7 fL (81-99); Mean Platelet Vol. 8.8 fl (6.2-12.0); Platelet Count 196 K/mm3 (150-450); RBC Distribution Width CV 12.3 % (11.6-14.6); RBC Distribution Width SD 45.8 fl (35.1-43.9); Red Blood Count 3.62 M/mm3 (4.2-5.4); White Blood Count 4.8 K/mm3 (4.4-11.0)
[2021-11-07 12:43] LABS: Prothrombin Time (Protime)PT. 12.4 SECONDS (11.7-14.9)
[2021-11-07 12:44] LABS: Partial Thromboplast Time 27.2 Seconds (24.1-36.2)
[2021-11-07 13:07] LABS: Anion Gap 6 (5-15); BUN 16 mg/dL (7-18); BUN/Creat Ratio 20.2 RATIO (10-20); Calcium,Total 8.4 mg/dL (8.5-10.1); Chloride 105 mmol/L (98-107); Creatinine, Serum 0.79 mg/dL (0.55-1.02); EST Glomerular Filtration Rate 79 mL/min (>60); Est Glom Filt Rate - Afr Amer 96 mL/min (>60); Glucose 133 mg/dL (74-106); Potassium 4.2 mmol/L (3.5-5.1); Sodium Level 139 mmol/L (136-145)
== END | disposition home or self-care (01) ==
LOC: LAB 11:19
PROVIDERS: PCP Internal Medicine; Referring Provider Internal Medicine Cardiovascular Disease; Visit Provider Internal Medicine Cardiovascular Disease
DX: I25.10 Atherosclerotic heart disease of native coronary artery without angina pectoris (principal); R94.39 Abnormal result of other cardiovascular function study; R07.9 Chest pain, unspecified; R06.02 Shortness of breath
CPT/HCPCS: 36415; 80048; 85027; 85610; 85730

== ENCOUNTER 2021-11-22 06:47 | Day surgery (SDC) | payer MEDICARE, SELFPAY ==
[2021-03-31 10:10] VITALS: BMI 34.4
--- NOTE | 2021-11-17 16:50 | PCM.HP.BLA ---
History and Physical Date of Admission: 11/22/21 [facility] [address] [place], [place] [address] OFFICE VISIT Date of Service:? 10/16/21 MR#: [id number] Acct: [id number] Name:PARADISE CARDONA Rep #: [id number] : 1960 Provider: Dr. Adan Vallecillo MD Age/Sex:? 61/F ? Location: [facility] Status: Signed HPI HPI History of Present Illness Details: This is a 60-year-old female that presents here today for a hospital follow-up with a history of CAD, non-ST segment elevation AZ, subsequent flash pulmonary edema , hyperlipidemia, and hypertension. As you recall, on December 14, 2020 patient was admitted for a non-STEMI.? She underwent an urgent heart catheterization which demonstrated nonobstructive coronary artery disease.? Echocardiogram demonstrated an ejection fraction of 40 to 45%.? It was felt that her non-STEMI was related to a Takotsubo.? She was discharged home on clopidogrel, metoprolol, lisinopril.? She previously was on aspirin, and atorvastatin and isosorbide.? She was discharged home on December 16, 2020. She then presented back to the emergency room on December 18, 2020 with acute hypoxic respiratory failure and acute flash pulmonary edema.? She was discharged home on Lasix, 40 mg twice a day, carvedilol was increased to 6.25 mg twice a day, lisinopril was increased to 5 mg daily. She subsequently had a follow-up transthoracic echocardiogram in March 2021 to review/compare to her previous studies performed in November 2020.? It appeared that overall her LV wall motion and systolic function had improved. She also underwent a chest CTA in November 2020 based upon her symptoms.? She did not appear to have any great vessel disease or thromboembolic disease. At the present time she states her main concern is a chest discomfort that is in the center of her precordium that radiates towards her back.? At other times she states she has bilateral upper extremity heaviness .? She does get short of breath and dyspneic with the symptoms as well as with exertion.? She denies orthopnea, PND, ongoing palpitations, near-syncope/syncope.? She has had waxing and waning lower extremity peripheral pitting edema. She does not believe her lipid labs have been reassessed since November 2020.? At that time her total cholesterol was 270 with an LDL 162 and an HDL of 43.? Her triglycerides were 326. Intake Vital Signs ? 12/22/2108:29 03/31/2110:10 10/16/2212:57 10/16/2213:05 Height 5 ft 2 in 5 ft 2 in 5 ft 2 in 5 ft 2 in Weight: ? ? ? 210 lb 7 oz BMI ? ? ? 38.5 BP ? ? ? 110/64 Blood Pressure Location ? ? ? Lt brachial Position ? ? ? Sitting Respiration ? ? ? 18 Pulse ? ? ? 76 Pulse Source ? ? ? Auscultation Intake Visit Reasons:?6 M Sorter Laundry Articles Required: No Accompanied by: Self Allergies adhesive Allergy (Verified 10/16/21 14:05) blisterscodeine Adverse Reaction (Verified 10/16/21 14:05) Nausea Medications esomeprazole magnesium 40 mg capsule,delayed release 40 mg PO BID reflux 05/06/20 [History Confirmed 10/16/21] hydroxyzine HCl 25 mg tablet 25 - 50 mg PO Q8H PRN PRN Itching 05/06/20 [History Confirmed 10/16/21] morphine 15 mg immediate release tablet 15 mg PO Q12H chronic back pain 05/06/20 [History Confirmed 10/16/21] oxybutynin chloride 10 mg tablet,extended release 24 hr 10 mg PO DAILY sweat 05/06/20 [History Confirmed 10/16/21] paroxetine HCl 20 mg tablet 30 mg PO DAILY depression 05/06/20 [History Confirmed 10/16/21] cholecalciferol (vitamin D3) 50 mcg (2,000 unit) tablet (Vitamin D3) 2,000 unit PO DAILY vitamin 12/14/20 [History Confirmed 10/16/21] folic acid-vit B6-vit B12 2.5 mg-25 mg-1 mg tablet (Folbee) 1 tab PO DAILY supplement 12/14/20 [History Confirmed 10/16/21] metformin 500 mg tablet,extended release 24 hr 500 mg PO DAILY prediabetic 12/14/20 [History Confirmed 10/16/21] methocarbamol 750 mg tablet 750 mg PO TID restless leg 12/14/20 [History Confirmed 10/16/21] tizanidine 4 mg tablet 4 mg PO Q6H PRN PRN Spasms 12/14/20 [History Confirmed 10/16/21] oxycodone-acetaminophen 7.5 mg-325 mg tablet 1 tab PO TID PRN Pain 12/16/20 [History Confirmed 10/16/21] prednisone 5 mg tablet 5 mg PO DAILY PRN RHEUMATOID ARTHRITIS FLARE 12/16/20 [History Confirmed 10/16/21] atorvastatin 40 mg tablet 40 mg PO DAILY #90 tabs 12/22/20 [Rx Confirmed 10/16/21] carvedilol 6.25 mg tablet 6.25 mg PO BID #180 tabs 12/22/20 [Rx Confirmed 10/16/21] furosemide 40 mg tablet 40 mg PO DAILY #90 tabs 12/22/20 [Rx Confirmed 10/16/21] lisinopril 5 mg tablet 5 mg PO DAILY #90 tabs 12/22/20 [Rx Confirmed 10/16/21] potassium chloride 10 mEq capsule,extended release 10 meq PO DAILY #90 caps 12/22/20 [Rx Confirmed 10/16/21] aspirin 81 mg chewable tablet 81 mg PO DAILY #90 tabs 04/03/21 [Rx Confirmed 10/16/21] clopidogrel 75 mg tablet 75 mg PO DAILY 10/16/21 [History Confirmed 10/16/21] PFSH Medical History? Acute coronary syndrome Arthritis Chronic pain Debility Decreased left ventricular function Depression Essential hypertension Former smoker GERD (gastroesophageal reflux disease) Hyperlipidemia Injury of fifth cervical spinal cord Insomnia Morbid obesity Neuropathic pain Rheumatoid arthritis Spinal cord stimulator status Surgical History? History of appendectomy Previous back surgery Family History? Father CAD (coronary artery disease)Other Heart disease Social History? Smoking Status:? Former smoker ROS Const Const: Positive for fatigue and weakness (generalized); Negative for body ache, fever(s), headache(s), chills, frequent falls, night sweats, daytime sleepiness, difficulty sleeping, excessive sweating, weight gain, weight loss, increased appetite, poor appetite, anorexia or other Eyes Eyes: Negative for blurry vision or double vision ENT ENT: Positive for dizziness (continues occasional when standing up too quick) and balance problems (ambulates with cane due to back pain); Negative for headache(s) Cardio Chest Pain: Yes (occasional) Character: sharp Onset: exercise Location: mid sternal (thru to back) Duration: brief Palpitations: No Edema: Bilateral (LE slight pitting) Muscle aches with walking: None Resp Respiratory: Positive for SOB with activity (occasional increased); Negative for SOB at rest, SOB orthopnea\SOB lying down, Cough, Coughing up blood/hemoptysis, chest congestion, pain on inspiration, snoring, stridor, wheezing, crackles, paroxysmal nocturnal dyspnea or other Musc Musc: Positive for muscle aches/ myalgia (chronic back pain), muscle weakness (bilat LE occasional heaviness), joint pain (bilat hips) and balance problems (ambulates with cane due to back pain) Neuro Neuro: Positive for dizziness (continues occasional when standing up too quick) and weakness (generalized); Negative for lightheadedness, near syncope, syncope, orthostatic symptoms, frequent falls, headache(s), confusion, memory loss, restless legs, blurry vision, double vision, vertigo, seizures, lack of coordination or other Endo Endo: Positive for fatigue; Negative for excessive sweating Cardiology Exam Const Appearance: cooperative, healthy appearing, comfortable, no acute distress, well developed and well groomed Nutritional Appearance: obese and other (Walks with a cane) Orientation: alert, awake and oriented x3 Head Head: normal to inspection, normocephalic and atraumatic Ears: hearing grossly normal bilaterally Nose: external nose normal Face and Sinus: face symmetric Eyes Eyelids: eyelids normal Conjunctivae: conjunctivae normal Pupils: PERRL EOM: EOM intact bilaterally Neck Neck: normal visual inspection, full ROM and trachea midline; Negative no JVD Carotids: Negative bruit Chest Chest inspection: normal inspection of the chest, symmetric chest movement and normal respiratory effort Auscultation: Bilateral: Clear to Auscultation Cardio Palpation: normal PMI Rate: regular rate Rhythm: regular rhythm Heart sounds: S1 normal and S2 normal; Negative rub, gallop or murmur GI GI: normal to inspection, soft, bowel sounds present and obese Neuro General: patient alert, patient awake, patient oriented x3 and moves all extremities Extremities Pulses: Normal: Right Posterior Tibial Pulse, Left Posterior Tibial Pulse, Right Radial Pulse and Left Radial Pulse Lower Extremity Edema: None: Bilateral Psych Psychological: normal affect Supplemental Info Supplemental Information Echocardiogram 12/15/2020: The estimated ejection fraction is EF 40-45% Mild MR Echocardiogram: 03/29/2021 Interpretation Summary The study was technically difficult. Contrast injection was performed. ? Based upon the 2D echocardiographic and contrast enhanced images obtained there appears to be grossly normal left ventricular size, wall motion, and systolic function. The estimated ejection fraction is 65 %. The left atrium is mildly enlarged. Trivial mitral valve insufficiency. Trivial tricuspid valve insufficiency. Trivial pulmonic valve insufficiency. Epicardial fat. Unable to estimate RV systolic pressure due to insufficient tricuspid regurgitant envelope. Transmitral doppler flow suggestive of impaired relaxation of left ventricle Cardiac catheterization: 12/14/2020 Procedure Report Date of Procedure: 12/14/20 Procedure performed; 1.? Moderate sedation 2.? Left heart catheterization 3.? Placement of TR band to close the right radial artery arteriotomy site. Preprocedure diagnosis; 60-year-old patient, I was asked by the ER physician to evaluate this patient who presented with severe retrosternal, epigastric and back pain She had severe chronic back pain and she had stimulator and had history of prediabetes was on Metformin, she quit smoking 3 years ago when she had a history of left hip pain osteoarthritis severe left knee pain and symptoms is typical of severe retrosternal chest pain radiating to the back and she had some minor change in the electrocardiogram with [address] elevation noted in lead I aVL and remarkable ST depression noted in the inferior lead. A CT scan was performed showed no evidence of aortic dissection.? Based on the clinical presentation with acute coronary syndrome does not meet the criteria for STEMI we will proceed with the [facility]. Patient was given heparin aspirin in the ER and electrocardiogram was repeated which showed a similar change however she continued to have the severe retrosternal chest pain. She lives with her ex- she has no children and her symptoms started this afternoon around 3:00. Consent; Risk and benefits of procedure explained detail to patient she elected to proceed informed consent obtained Type of sedation moderate sedation Supervision of sedation Dr. Eyal mario She was given intravenous Versed. Diagnostic catheter used; 1.? 6 Tanzanian sheath placed in the right radial artery, with a cocktail of verapamil, heparin as well as nitroglycerin was given through the sheath 2.? Use a diagnostic catheter of 5 Tanzanian JR4 catheter 6 Tanzanian JL4 guide catheter Procedure in detail; Patient brought as an emergency to the [facility] and will proceed with access from the right radial artery next and 6 Tanzanian sheath placed in the right radial artery/Terumo sheath and then the cocktail was given which is a heparin 3000IU , 200 mcg of nitro and 2.5 mg of verapamil ?we proceed with the regular wire and a 5 Tanzanian JR4 diagnostic cannulated the ostium of the RCA and multiple views of the right coronary system obtained. Following this we will proceed with the 6 Tanzanian JL 4 guide cannulated the left main ostium without difficulty multiple views of the left coronary system were obtained including THAI, PATINO cranial and caudal views. Angiographic views studied and discussed with the patient Findings coronary angiography; Left main?Short, angiographically no obstructive atherosclerosis of the left main noted The left main coronary artery trifurcates into LAD, ramus intermedius and the left circumflex The left anterior descending artery?is a large vessel reach all the way to the apex Angiographically there is nonobstructive atherosclerosis of around 10-20% of the proximal, mid left anterior descending Side branch which is a second diagonal branch had an ostial lesion of around 40 to 50% With a WARD-3 flow in the LAD and the side branches. The LAD also noted to have abundant septal branches The ramus intermedius?is a small vessel at the minor mild ST mild stenosis/ostial ramus intermedius The left circumflex?is moderate-sized vessel and angiographically had no obstructive atherosclerosis Right coronary artery?is a large dominant vessel bifurcating into RPDA and posterolateral branch There is a lesion at the ostium of the RPDA which is around 40 to 50%. Conclusion and plan; This patient had nonobstructive coronary atherosclerosis Her presentation is acute coronary syndrome with mild change in the lateral leads with ST depression noted in the inferior, 2 3 and aVF leads. Patient will be treated with medical therapy with atorvastatin, aspirin, long-acting nitroglycerin. Patient has been on Metformin for prediabetes and I will defer to the medical team for follow-up and evaluation. Patient to follow-up with the cardiology team group here at [facility]. Johnie Mckinnon MD,FACC,[facility] Chest CTA: 12/18/2020 COMPARISON:? 12/11/2020 FINDINGS: Pulmonary artery and its branches demonstrate no evidence of filling defects to suggest acute pulmonary embolism. Moderate size bilateral pleural effusions with bibasilar compressive atelectasis and/or airspace disease.? Borderline enlarged mediastinal lymph nodes. No evidence for aortic dissection. Cardiomegaly with coronary vascular calcifications.? Small pericardial effusion. Patchy bilateral groundglass densities noted which can be seen in the setting of pulmonary edema.? Other possibly simply include atypical pneumonia.? The trachea and the mainstem bronchi appear patent.? Narrowing of the mainstem bronchi however seen Small hiatal hernia. Hepatic steatosis atrophy of the pancreas.? The Osseous structures demonstrate no acute abnormalities.? Spinal stimulator device leads are seen at approximately T9 level.? Mild wedging of the thoracic vertebrae with scattered Schmorl''s nodes and accentuated thoracic kyphotic curvature.? Spondylotic changes with multilevel neural foraminal narrowing. IMPRESSION: Cardiomegaly with coronary vascular calcifications and moderate size bilateral pleural effusions with bibasilar compressive atelectasis. Patchy bilateral groundglass densities which can be seen in the setting of pulmonary edema.? Other differential considerations include atypical pneumonia.? Overall findings appear worsened since previous CT angiogram Electronically Signed: Oswaldo Alonso MD at 12:41 EDT ? Labs: ?? ? LDL Cholesterol 162 mg/dL (0-130)? H ?? ? HDL Cholesterol 43 mg/dL (40-) ?? ? Triglycerides 326 mg/dL (-199) H ?? ? VLDL Cholesterol 65 mg/dL (5-40)? H Diagnostics: ?? ? Electrocardiogram ? Echocardiogram ? Chest X-Ray ? Pulmonary: ?? ? No Data to Display Assessment and Plan Assessment and Plan (1) CAD (coronary artery disease): ?Status:?Acute ?Plan: The patient carries a diagnosis of CAD. Based upon her previous cardiac catheterization was considered to nonobstructive . She required continued medical therapy. She did not require percutaneous intervention. At the moment she does need to continue risk factor evaluation and care. Based upon her history, her findings, and her symptoms it would not be unreasonable to further assess her with a follow-up pharmacologic stress nuclear imaging study (as she cannot physically walk on a treadmill as she walks with a cane) to evaluate for ongoing myocardial ischemia that would warrant repeat evaluation in the cardiac catheterization laboratory. (2) NSTEMI, initial episode of care: ?Status:?Resolved ?Plan: She had been diagnosed with a non-STEMI. Again she underwent previous noninvasive and invasive evaluation. She will continue medical therapy. She will undergo reassessment as noted. (3) Decreased left ventricular function: ?Status:?Acute ?Plan: She did have diminished LV systolic function during her initial acute coronary syndrome event. It appeared based upon her follow-up studies that her overall LV systolic function has improved. She will continue medical therapy and follow-up. (4) Hyperlipidemia: ?Plan: She will be asked to have future fasting lipid and hepatic profile. (5) Essential hypertension: ?Status:?Acute ?Plan: Her blood pressure appears to be reasonably well controlled at this time. She will continue her current medical management. (6) Chest pain, unspecified: ?Status:?Acute ?Plan: Her chest discomfort is somewhat mixed with respect to its features. At the present time based upon her risk factors, her known diagnosis, and her concerns she will undergo reassessment with a pharmacologic stress nuclear imaging study to reevaluate her coronary physiology for any significant changes that warrant a repeat trip to the cardiac catheterization laboratory. ? ? ? Orders: Orders Lipid Profile 1 Day E78.00 - Pure hypercholesterolemia, unspecified, I10 - Essential (primary) hypertension, I25.10 - Atherosclerotic heart disease of [place] coronary artery without angina pectoris, I25.2 - Old myocardial infarction, I51.9 - Heart disease, unspecified, R07.9 - Chest pain, unspecified ? Liver Profile 1 Day E78.00 - Pure hypercholesterolemia, unspecified, I10 - Essential (primary) hypertension, I25.10 - Atherosclerotic heart disease of [place] coronary artery without angina pectoris, I25.2 - Old myocardial infarction, I51.9 - Heart disease, unspecified, R07.9 - Chest pain, unspecified ? Nuclear Stress Test - Chemical Today I10 - Essential (primary) hypertension, I25.10 - Atherosclerotic heart disease of bo[place] coronary artery without angina pectoris, I25.2 - Old myocardial infarction, I51.9 - Heart disease, unspecified, R07.9 - Chest pain, unspecified ? Plan Details Additional Comments: The above was discussed with her and she was agreeable to this approach. Thank you for allowing me to participate in the care of your patient.? Please don't hesitate to call if any issues arise. This note was generated using a voice recognition system and there may be incorrect words, spelling or punctuation that were not noted when reviewing the office note prior to saving. Follow Up: ? ? 6 Months (PFM) COVID (Procedure Consent) Procedure Criteria Procedure Criteria: Yes Elective The surgeon/proceduralist and patient have discussed in detail the risk of exposure to and/or potential harm posed by the COVID-19 virus with having a surgery/procedure at this time versus the risk of? delaying the surgery/procedure. It is not possible to know either the risk of delaying the surgery or procedure or chance of getting an infection with perfect accuracy, but a joint decision was made between the patient and the surgeon/proceduralist ?to proceed at this time with the scheduled surgery/procedure as indicated on the consent form. Coding Level of Care Code Off vis,est,level 5 Diagnoses CAD (coronary artery disease)? I25.10 NSTEMI, initial episode of care? I21.4 Decreased left ventricular function? I51.9 Hyperlipidemia? E78.5 Essential hypertension? I10 Chest pain, unspecified? R07.9 Coding Level of Care Code Off vis,est,level 5 Diagnoses CAD (coronary artery disease)? I25.10 NSTEMI, initial episode of care? I21.4 Decreased left ventricular function? I51.9 Hyperlipidemia? E78.5 Essential hypertension? I10 Chest pain, unspecified? R07.9 10/16/21 0355 <Electronically signed by Adan Vallecillo MD> Date Adan Vallecillo MD Cosigner Signature: Date (if applicable) CC:? Dr. Keren Bustamante MD ~ Assessment & Plan Addt'l Comments Addendum: Pharmacologic stress nuclear imaging study. The results are noted below. Stress Test Report Date: 10-26-2021 Procedure: Pharmacologic stress nuclear imaging study? Indications: Chest pain; CAD; non-ST segment elevation AZ; Takotsubo syndrome Consent: Per the patient Procedure: The patient underwent pharmacologic (Regadenoson 0.4mg ) evaluation with a peak heart rate of 100 beats per minute (62%predicted maximal heart rate) and a peak blood pressure of 106/64 mmHg. The baseline ECG demonstrated normal sinus rhythm.? The peak pharmacologic ECG demonstrated no obvious ECG changes. There were no cardiac dysrhythmias pretest, during pharmacologic infusion, or recovery. There was no complaint of chest discomfort during pharmacologic infusion or recovery. The examination was discontinued secondary to completion of protocol. Impression: 1.? Pharmacologic (Regadenoson) evaluation 2.? Peak pharmacologic ECG with no obvious ECG changes. 3.? There were no cardiac dysrhythmias pretest, during pharmacologic infusion, or recovery. 4.? Nuclear images pending Myocardial perfusion imaging study: Technique: The patient was injected with 14.6 millicuries of technetium 99m Cardiolite and subsequently rest SPECT Cardiolite nuclear imaging was obtained in the horizontal long, vertical long, and short axis views. The patient underwent pharmacologic (Regadenoson) evaluation with a peak heart rate of 100 beats per minute (62% percent predicted maximal heart rate) and a peak blood pressure of 106/64 mmHg. The patient was injected with 44.5 millicuries of technetium 99m Cardiolite and subsequently stress SPECT Cardiolite nuclear imaging was obtained in the horizontal long, vertical long, and short axis views.? A gated Cardiolite study at peak stress was not obtained. Interpretation: Rest and stress SPECT Cardiolite nuclear imaging status post realignment, normalization, and attenuation correction demonstrate the appearance of relative uniform tracer uptake and myocardial perfusion within normal limits at rest.? Status post stress there is a small area of diminished myocardial perfusion/tracer uptake in the very distal anterior lateral/lateral apical segments. Impression: 1.? Rest and stress SPECT her nuclear imaging demonstrate myocardial perfusion changes appearing compatible with an area of stress-induced myocardial ischemia in the very distal anterior lateral/lateral apical segments. 2.? A gated Cardiolite study at peak stress was not obtained. Based upon the patient's symptoms/clinical course and her objective findings it was recommended patient be considered for reevaluation with diagnostic cardiac catheterization. The procedure and risk were discussed with the patient. She was agreeable to this approach. I have re-examined the patient. There are no clinical changes since date of exam
[2021-11-21 08:17] VITALS: BMI 38.4
--- NOTE | 2021-11-22 11:39 | CL.D_ITS ---
Patient Name: PARADISE FAUST Study Date: 11/22/2021 Performing: Adan Vallecillo MD Ht: 61.81 inches 157 cm : 1960 Wt: 209.44 lbs 95 kg Age: 61 Gender: female BSA: 1.95 PROCEDURE(S) PERFORMED [id number])LHC/COR/LV CLINICAL PROFILE AND INDICATIONS Indications: Worsening Angina Heart Failure: None Stress/Imaging Date: 10/26/2021tress Test with SPECT MPI: Positive Intermediate Risk Angina Classification Anginal Classification w/in 2 Weeks: CCS III CAD Presentations: Other: worsening angina CONCLUSIONS Elevated Left Ventricular End Diastolic Pressure Normal LV size, wall motion,and systolic function LVEF: by LV gram 55 % [place] Multivessel CAD (non obstructive) RECOMMENDATIONS Risk factor modification Medical therapy DESCRIPTION OF PROCEDURE The patient arrived to the procedure lab. The risks and benefits of the procedure as well as a full d escription of our services here and current unavailability of surgical backup were fully explained to the patient and/or their significant other prior to the catheterization. The Timeout was completed, verifying the correct patient and procedure. The patient's procedural site was prepped and draped in the usual fashion. Local anesthetic was given subcutaneously to right radial region with Lidocaine 2% . Local anesthetic was given subcutaneously to right groin region with Lidocaine 2%. Using a modified Seldinger technique, arterial access was obtained via the right radial artery, a 6Fr sheath was inse rted., arterial access was obtained via the right femoral artery, a 4Fr sheath was inserted Right Co ronary Artery selective angiography was then performed in multiple views using a 5 Fr. JR 4 catheter. Left Coronary Artery selective angiography was performed in multiple views using a 4 Fr. JL5 catheter. Left Ventriculography was performed in PATINO projection using a 4 Fr. Pigtail catheter. L V to AO pullback pressures were then recorded.The arterial sheath was pulled and a TR Band was applie d for hemostasis w/ 12ml air. The arterial sheath was pulled and manual compression applied until hem ostasis is achieved. CORONARY ANGIOGRAPHY LEFT HEART ASSESSMENT Left Ventricular Ejection Fraction: by LV Gram 55 % Normal LV wall motion Elevated Left Ventricular End Diastolic Pressure LVEDP: 16 mmHg Normal Left Ventricular systolic function LEFT MAIN: Mild calcification LEFT ANTERIOR DESCENDING ARTERY: PROX LAD: Mild calcification, Mild luminal irregularities MID LAD: Mild luminal irregularities DIAGONAL 2: Proximal - Mild luminal irregularities CIRCUMFLEX ARTERY: Mild luminal irregularities RAMUS: Mild luminal irregularities RIGHT CORONARY ARTERY: Mild luminal irregularities RT PDA: Proximal - 25 % Stenosis AORTIC ROOT: Angiographically normal COMPLICATIONS No Complications PROCEDURE MEDICATIONS Versed 0.5 mg IV Fentanyl 25 mcg IV Versed 0.5 mg IV Fentanyl 25 mcg IV Oxygen: 2 L/min via nasal cannula Heparin given IA 11/22/2021 08:13:17 Verapamil 2.5mg, Ntg 100mcgs, 3000 units of Heparin given IA 11/22/2021 08:13:17 IV Bolus: .9 NaCl 300 ml total 11/22/2021 08:20:09 IV Fluids: .9 NaCl IV started @ 100 ml/hr 11/22/2021 09:04:37 SUMMARY OF HEMODYNAMIC DATA Time AIR REST ECG 07:12:48 Art 96/48 (66) 08:00:24 LV 78/-2, 15 08:21:44 LV 79/-4, 16 08:21:53 LVp 80/-6, 15 08:21:58 AOp 81/38 (56) 08:22:05 AO 82/32 (52) SA 08:22:09 LV 95/13, 29 08:57:24 LV 97/9, 24 08:57:32 LV 103/11, 30 08:58:37 LV 100/-2, 24 08:58:45 LVp 102/-1, 24 08:58:48 AOp 106/53 (75) 08:58:56 ECG 09:20:36 Signed By Adan Vallecillo MD On 11/22/2021 11:38:37 Adan Vallecillo MD
== END 2021-11-22 13:20 | disposition home or self-care (01) ==
LOC: CLSP 06:49
PROVIDERS: PCP Internal Medicine; Visit Provider Internal Medicine Cardiovascular Disease
DX: I25.110 Atherosclerotic heart disease of native coronary artery with unstable angina pectoris (principal); M06.9 Rheumatoid arthritis, unspecified; E66.01 Morbid (severe) obesity due to excess calories; I10 Essential (primary) hypertension; G89.29 Other chronic pain; E78.00 Pure hypercholesterolemia, unspecified; I51.81 Takotsubo syndrome; I25.2 Old myocardial infarction; Z68.38 Body mass index [BMI] 38.0-38.9, adult; Z79.02 Long term (current) use of antithrombotics/antiplatelets; Z79.82 Long term (current) use of aspirin; Z79.899 Other long term (current) drug therapy; Z87.891 Personal history of nicotine dependence
CPT/HCPCS: 93458; 99152; 99153; C1769; C1887; C1894; Q9967

== ENCOUNTER → 2023-05-17 | Outpatient (CLI) | payer MEDICARE, SELFPAY ==
--- NOTE | 2023-05-17 14:56 | ECHOCS_ITS ---
Reason For Study: Afib/Flutter Procedure This was a 2D Doppler, Color Flow transthoracic echocardiogram. The study was technically difficult. Contrast injection was performed. Exam performed in department. Left Ventricle Normal LV size. Left ventricular systolic function is normal. The estimated ejection fraction is 60 %. Stage 1 diastolic dysfunction. No regional wall motion abnormalities noted. Right Ventricle Normal RV size. Normal systolic function. Atria The left atrium is mildly enlarged. Normal right atrium. Mitral Valve Normal mitral valve. Tricuspid Valve Normal tricuspid valve. Mild (1+) tricuspid valve insufficiency. Pulmonary artery systolic pressure is 28 mmHg. Aortic Valve Mild focal aortic valve calcification. Mild aortic stenosis. Pulmonic Valve Normal pulmonic valve. Great Vessels Normal aortic root. The pulmonary artery is normal size. Normal inferior vena cava. Pericardium/Pleural No pericardial effusion. Medication 20 gauge I.V. with prn adaptor inserted into right arm. Diluted definity 3ml given slow IV push to enhance endocardial definition. MMode/2D Measurements & Calculations LVIDd: 4.7 cm IVSd: 0.73 cm Ao root diam: 3.1 cm LVIDs: 3.7 cm LVPWd: 0.93 cm LA dimension: 4.6 cm RVDd: 3.3 cm FS: 21.3 % LAV(MOD-bp): 67.0 ml LA A4 area: 23.2 cm2 RA A4 area: 15.5 cm2 LAV(MOD-bp) Indexed: 34.5 ml/m2 LAV(MOD-sp2): 56.8 ml LAV(MOD-sp4): 74.0 ml Time Measurements MV dec time: 0.22 sec Doppler Measurements & Calculations MV E max jose: 63.6 cm/sec Lat Peak E' Jose: 10.9 cm/sec Med Peak E' Jose: 8.7 cm/sec MV A max jose: 86.8 cm/sec E/E' lat: 5.8 E/E' med: 7.3 MV E/A: 0.73 MV V2 max: 91.8 cm/sec MV P1/2t max jose: 70.4 cm/sec Ao V2 max: 172.8 cm/sec MV max P.4 mmHg MV P1/2t: 73.1 msec Ao max P.0 mmHg MV V2 mean: 50.5 cm/sec MV dec slope: 282.1 cm/sec2 Ao V2 mean: 118.6 cm/sec MV mean P.2 mmHg Ao mean P.4 mmHg MV V2 VTI: 21.7 cm MVA(P1/2t): 3.0 cm2 Ao V2 VTI: 35.8 cm AV (velocity ratio): 0.81 LV V1 max: 130.6 cm/sec PA V2 max: 94.7 cm/sec TR max jose: 243.6 cm/sec LV V1 max P.8 mmHg TR max P.7 mmHg LV V1 mean P.0 mmHg LV V1 mean: 94.4 cm/sec LV V1 VTI: 28.9 cm ECHO/Echo Complete W/ Contrast Interpretation Summary Normal LV size. Left ventricular systolic function is normal. The estimated ejection fraction is 60 %. Stage 1 diastolic dysfunction. The left atrium is mildly enlarged. Pulmonary artery systolic pressure is 28 mmHg. Ordering Physician: Herson Moses Referring Physician: Herson Moses Performed By: Valente Broussard RCS
== END | disposition home or self-care (01) ==
LOC: CVS 14:53
PROVIDERS: PCP Internal Medicine; Referring Provider Nurse Practitioner Family; Visit Provider Nurse Practitioner Family
DX: I48.0 Paroxysmal atrial fibrillation (principal); I25.10 Atherosclerotic heart disease of native coronary artery without angina pectoris; I25.2 Old myocardial infarction
CPT/HCPCS: 93306; Q9957; A4216; C8929

== ENCOUNTER 2023-07-22 07:49 | Emergency (ER) | payer MEDICARE, SELFPAY ==
[2021-03-31 10:10] VITALS: BMI 34.4
[2023-07-22] VITALS (7 sets, daily range): BP systolic 157–200; BP diastolic 72–99; PULSE 74–93; RESP 14–20; TEMP 36.4–36.6; O2SAT 97–100; BMI 36.6
--- NOTE | 2023-07-22 08:00 | EKG12_ITS ---
Test Reason : CHEST PAIN Blood Pressure : / mmHG Vent. Rate : 076 BPM Atrial Rate : 076 BPM P-R Int : 136 ms QRS Dur : 078 ms QT Int : 420 ms P-R-T Axes : -03 002 021 degrees QTc Int : 472 ms Normal sinus rhythm Nonspecific ST abnormality Abnormal ECG Confirmed by Richard Vinson ([id number]), order editor SHIREEN HORTON ([id number]) on 07/23/2023 1:42:46 PM Referred By: Confirmed By:Richard Vinson
--- NOTE | 2023-07-22 08:01 | EX.ED.DYSGE1 ---
HPI History of Present Illness Chief Complaint: General Illness Narrative Narrative: 62-year-old female past medical history of coronary artery disease, hypertension, atrial fibrillation, on blood thinners presents with nausea, vomiting, and chest pain that she has had since Saturday. She states that over the weekend she began feeling ill. She started having nausea and vomiting. She tried to eat on Saturday, but has been unable to keep anything down. She states over the last 24 hours she has vomited multiple times, no hematemesis but more bilious vomit and dry heaving. She states that whenever she vomits she gets a sharp pain in her chest. Additionally, she started feeling clammy but not necessarily febrile. She presents mainly because of the continued nausea and vomiting, and the chest pain. She told the erecting engineer that she cannot smell or taste anything currently. [facility] Medical History Abnormal stress test Acute coronary syndrome Arthritis Atherosclerotic heart disease of [place] coronary artery without angina pectoris Chronic pain Debility Decreased left ventricular function Depression Essential hypertension Former smoker GERD (gastroesophageal reflux disease) History of left heart catheterization (LHC) (~11/22/21) Hyperlipidemia Injury of fifth cervical spinal cord Insomnia Morbid obesity Neuropathic pain Rheumatoid arthritis Spinal cord stimulator status Home Medications esomeprazole magnesium 40 mg capsule,delayed release 40 mg PO BID reflux 05/06/20 [History Last Taken 12/14/20 09:00] hydroxyzine HCl 25 mg tablet 25 - 50 mg PO Q8H PRN PRN Itching 05/06/20 [History Last Taken 12/14/20 09:00] morphine 15 mg immediate release tablet 15 mg PO Q12H chronic back pain 05/06/20 [History Last Taken 12/14/20 09:00] oxybutynin chloride 10 mg tablet,extended release 24 hr 10 mg PO DAILY sweat 05/06/20 [History Last Taken 12/14/20 09:00] paroxetine HCl 20 mg tablet 30 mg PO DAILY depression 05/06/20 [History Last Taken 12/14/20 09:00] cholecalciferol (vitamin D3) 50 mcg (2,000 unit) tablet (Vitamin D3) 2,000 unit PO DAILY vitamin 12/14/20 [History Last Taken 12/14/20 09:00] folic acid-vit B6-vit B12 2.5 mg-25 mg-1 mg tablet (Folbee) 1 tab PO DAILY supplement 12/14/20 [History Last Taken 12/14/20 09:00] metformin 500 mg tablet,extended release 24 hr 500 mg PO DAILY prediabetic 12/14/20 [History Last Taken 12/14/20 09:00] methocarbamol 750 mg tablet 750 mg PO TID restless leg 12/14/20 [History Last Taken 12/14/20 09:00] tizanidine 4 mg tablet 4 mg PO Q6H PRN PRN Spasms 12/14/20 [History Last Taken 12/14/20 09:00] oxycodone-acetaminophen 7.5 mg-325 mg tablet 1 tab PO TID PRN Pain 12/16/20 [History Last Taken Unknown] prednisone 5 mg tablet 5 mg PO DAILY PRN RHEUMATOID ARTHRITIS FLARE 12/16/20 [History Last Taken Unknown] lisinopril 5 mg tablet 5 mg PO DAILY #90 tabs 01/08/22 [Rx Last Taken Unknown] potassium chloride 10 mEq capsule,extended release 10 meq PO DAILY #90 caps 01/08/22 [Rx Last Taken Unknown] atorvastatin 40 mg tablet 40 mg PO DAILY #90 tabs 09/06/22 [Rx Last Taken Unknown] carvedilol 6.25 mg tablet 6.25 mg PO BID #180 tabs 09/06/22 [Rx Last Taken Unknown] apixaban 5 mg tablet (Eliquis) 5 mg PO BID #60 tabs 01/17/23 [Rx Last Taken Unknown] metaxalone 800 mg tablet 400 - 800 mg PO TID PRN muscle spasm 07/17/23 [History Last Taken Unknown] ondansetron 4 mg disintegrating tablet 4 mg PO Q6H PRN nausea and vomiting #15 tabs 07/22/23 [Rx Last Taken Unknown] Allergy/AdvReac Type Severity Reaction Status Date / Time adhesive Allergy blisters Verified 07/22/23 07:54 codeine AdvReac Nausea Verified 07/22/23 07:54 Family History Father CAD (coronary artery disease) Other Heart disease Surgical History History of appendectomy Previous back surgery Social History Smoking Status: Former smoker ROS ROS ED ROS Narrative Constitutional: No fever, no chills. [place] clammy this weekend. HEENT: No sore throat. No neck pain. No loss of vision. No rhinorrhea. Cardiovascular: Positive shock 1 vomiting type of chest pain. No palpitations. No pedal edema. Respiratory: No cough, no shortness of breath. Abdominal: No abdominal pain. Multiple episodes of nausea and vomiting, bilious. Genitourinary: No dysuria. No hematuria. Musculoskeletal: No myalgias. No arthralgias. Neurologic: Positive headaches. No dizziness. Mild lightheadedness. Skin: No rash. No change in color. Psychiatric: No depression. No anxiety. EXAM Physical Exam Narrative Exam Narrative: Afebrile. Vital signs noted. HEENT: Normocephalic. Atraumatic. PERRL, EOMI. Neck soft and supple. No point tenderness or step off. Cardiovascular: Regular rate and rhythm. No murmurs, rubs, or gallops appreciated. Respiratory: No tachypnea. Lungs clear to auscultation bilaterally. Gastrointestinal: Abdomen soft, nontender, with normoactive bowel sounds. No rebound or guarding. Neurological: Awake. Alert. Nonfocal, nonlateralizing. Skin: No rash. Normal color. No pallor. Musculoskeletal: No pedal edema. Full range of motion extremities. Const Vital Signs: 07/22/23 07:51 07/22/23 08:04 07/22/23 08:17 Temperature 97.6 F L Temperature Source Oral Pulse Rate 75 Respiratory Rate 20 H Respiratory Effort Normal Blood Pressure 166/83 H Blood Pressure Mean 110 Pulse Ox 100 97 Oxygen Delivery Method Room Air Room Air 07/22/23 08:50 07/22/23 10:00 07/22/23 10:43 Temperature Temperature Source Pulse Rate 74 84 81 Respiratory Rate 14 18 18 Respiratory Effort Blood Pressure 171/99 H 200/90 H 173/77 H Blood Pressure Mean 123 126 109 Pulse Ox 100 99 99 Oxygen Delivery Method Room Air Room Air Room Air 07/22/23 11:00 Temperature Temperature Source Pulse Rate 93 Respiratory Rate 20 H Respiratory Effort Blood Pressure 157/74 H Blood Pressure Mean 101 Pulse Ox 99 Oxygen Delivery Method Room Air MDM MDM MDM Narrative Medical decision making narrative: In the differential diagnosis is ACS versus viral syndrome from COVID, influenza, or RSV, versus pancreatitis versus gastroenteritis. Comprehensive workup was pursued. From the history and physical, I doubt ACS as she states that her chest pain is more of a shocklike sensation and very fleeting when she vomits. EKG was obtained and interpreted by myself independently as normal sinus rhythm at 76 bpm without ectopy or acute ST changes. No STEMI. I reviewed her laboratory work and she has normal white count of 6.8, hemoglobin normal at 12.7, platelet count normal at 199. Her electrolyte panel is grossly unremarkable with a sodium of 139, potassium 3.6, chloride 104, BUN normal at 18 and creatinine 0.67. Glucose is appropriately elevated at 158 with a normal anion gap of 8. Her LFTs are grossly unremarkable. Initial high-sensitivity troponin is 16 with a repeat at 2 hours 17 for a delta of 1. I feel she has been ruled out with biomarkers for acute coronary syndrome. Her lipase is normal at 17 so I do not feel she has a pancreatitis. She did have elevation in her blood pressure to 200 systolic but she had not taken her medications/antihypertensives this morning. She was given hydralazine with resultant blood pressure at 157 systolic. She states she had a headache so she was administered Toradol. I do not feel that narcotics are indicated. She was also administered ondansetron for nausea and vomiting. She has not vomited here in the ED. At this point in time, I do not feel that she requires admission. In discussion with the patient, she will be discharged with a prescription for Zofran and will follow-up with her primary care provider. She will continue her home medications. Return instructions to the emergency department were reviewed. Disposition is discharged home in stable condition. History & Record Review Discussion w/independent historian: Patient Additional record(s) reviewed:: Prior ED visit and Prior labs Lab Data Attestation: I reviewed the patient's lab results. Labs: Laboratory Results - last 24 hr 07/22/23 07/22/23 08:05 10:15 WBC 6.8 RBC 4.31 Hgb 12.7 Hct 40.2 MCV 93.3 MCH 29.5 MCHC 31.6 L RDW Std Deviation 41.8 RDW Coeff of [place] 12.1 Plt Count 199 MPV 7.7 Immature Gran % (Auto) 0.600 Neut % (Auto) 63.7 Lymph % (Auto) 22.1 [place] % (Auto) 11.7 H Eos % (Auto) 1.6 Baso % (Auto) 0.3 Absolute Neuts (auto) 4.3 Absolute Lymphs (auto) 1.49 Nucleated RBC % 0 Sodium 139 Potassium 3.6 Chloride 104 Carbon Dioxide 27.0 Anion Gap 8 BUN 18 Creatinine 0.67 Estim Creat Clear Calc 93.63 Est GFR (MDRD) Af Amer 115 Est GFR (MDRD) Non-Af 95 BUN/Creatinine Ratio 26.9 H Glucose 158 H Calcium 8.9 Total Bilirubin 0.40 AST 28 ALT 37 Alkaline Phosphatase 68 Troponin I High Sens 16 17 Total Protein 6.8 Albumin 3.5 Globulin 3.3 Albumin/Globulin Ratio 1.1 Lipase 17 Radiography Diagnostic Testing: Clinical Impression(s) from Imaging Studies Chest X-Ray 07/22/23 08:15 IMPRESSION: No acute abnormality is present. Electronically Signed: Rudy Monroy MD at 8:32 EDT , Discharge Plan Triage Chief Complaint: General Illness ED Provider: Bryant Choudhury Dx/Rx/DC Orders Clinical Impression: Nausea and vomiting, Chest pain, Malaise and fatigue Instructions: ED Chest Pain, Uncertain Cause, ED Vomiting (Adult) Prescriptions: New ondansetron 4 mg tablet,disintegrating 4 mg PO Q6H PRN (Reason: nausea and vomiting) Qty: 15 0RF No Action Eliquis 5 mg tablet 5 mg PO BID Qty: 60 11RF metaxalone 800 mg tablet 400 - 800 mg PO TID PRN (Reason: muscle spasm) oxybutynin chloride 10 MG tablet extended release 24hr 10 mg PO DAILY paroxetine HCl 20 MG tablet 30 mg PO DAILY esomeprazole magnesium 40 MG capsule 40 mg PO BID hydroxyzine HCl 25 MG tablet 25 - 50 mg PO Q8H PRN PRN (Reason: Itching) morphine 15 MG tablet 15 mg PO Q12H tizanidine 4 mg tablet 4 mg PO Q6H PRN PRN (Reason: Spasms) Folbee 2.5-25-1 mg tablet 1 tab PO DAILY Patient Comments: TAKE 1 TABLET BY MOUTH ONCE DAILY methocarbamol 750 mg tablet 750 mg PO TID metformin 500 mg tablet extended release 24 hr 500 mg PO DAILY Patient Comments: TAKE 1 TABLET BY MOUTH ONCE DAILY WITH BREAKFAST cholecalciferol (vitamin D3) [Vitamin D3] 50 mcg (2,000 unit) tablet 2,000 unit PO DAILY Patient Comments: TAKE 1 TABLET BY MOUTH ONCE DAILY oxycodone-acetaminophen 7.5-325 mg tablet 1 tab PO TID PRN (Reason: Pain) Patient Comments: TAKE 1 TABLET BY MOUTH THREE TIMES DAILY NEEDED prednisone 5 mg tablet 5 mg PO DAILY PRN (Reason: RHEUMATOID ARTHRITIS FLARE) Patient Comments: TAKE 1 TABLET BY MOUTH ONCE DAILY NEEDED FOR RHEUMATOID ARTHRITIS FLARE lisinopril 5 mg tablet 5 mg PO DAILY Qty: 90 3RF potassium chloride 10 mEq capsule, extended release 10 meq PO DAILY Qty: 90 3RF atorvastatin 40 mg tablet 40 mg PO DAILY Qty: 90 3RF carvedilol 6.25 mg tablet 6.25 mg PO BID Qty: 180 3RF Rx Instructions: Take 1 tablet, twice daily. Primary Care Provider: Keren Bustamante Referrals: Keren Bustamante MD [Primary Care Provider] - 3-5 Days if not improving Disposition Disposition: Home, Self Care
[2023-07-22 08:15] LABS: Absolute Lymphocyte Count 1.49 X10^3/uL (0.83-4.51); Absolute Neutrophil Count 4.3 X10^3/uL (2.0-7.7); Basophil# 0.02 X10^3/uL; Basophil% 0.3 % (0-1); Eosinophil# 0.11 X10^3/uL; Eosinophils% 1.6 % (0-5); Hematocrit 40.2 % (37-47); Hemoglobin 12.7 g/dL (12.0-15.0); Lymphocyte # 1.49 X10^3/ul (0.83-4.51); Lymphocyte % 22.1 % (19-41); Mean Corp Hgb Conc 31.6 g/dL (32-36); Mean Corpuscular Hgb 29.5 pg (27.0-32.0); Mean Corpuscular Volume 93.3 fL (81-99); Mean Platelet Vol. 7.7 fl (6.2-12.0); Monocyte# 0.79 X10^3/uL; Monocyte% 11.7 % (0-10); NRBC Flagged by Analyzer 0 % (0-5); Neutrophil % 63.7 % (47-70); Platelet Count 199 K/mm3 (150-450); RBC Distribution Width CV 12.1 % (11.6-14.6); RBC Distribution Width SD 41.8 fl (35.1-43.9); Red Blood Count 4.31 M/mm3 (4.2-5.4); White Blood Count 6.8 K/mm3 (4.4-11.0)
--- NOTE | 2023-07-22 08:15 | RAD_ITS ---
STUDY: X-RAY CHEST REASON FOR EXAM: Female, 62 years old. Chest pain TECHNIQUE: Single AP portable view of the chest. COMPARISON: None. FINDINGS: EKG electrodes are seen. The lungs are clear and expanded. There is no demonstrated pleural abnormality. Normal size heart. Normal mediastinum and ovi. Normal visualized pulmonary arteries. Normal visualized aortic arch and descending thoracic aorta. Prior fusion in the lower cervical spine. Electrodes from a spinal cord stimulator device are seen. Normal visualized ribs, clavicles, and shoulders. There is no demonstrated abnormality of the visualized soft tissue structures of the upper abdomen. RAD/Chest 1 View (Portable) IMPRESSION: No acute abnormality is present. Electronically Signed: Rudy Monroy MD at 8:32 EDT ,
[2023-07-22] MEDS: 0.9% Normal Saline (1000mL) 1,000 ML 1000 ML IV (08:16)
[2023-07-22 08:34] LABS: ALB/GLOB Ratio 1.1 RATIO (0.9-2.4); AST(SGOT) 28 U/L (15-37); Alanine Aminotransfer ALT/SGPT 37 U/L (13-56); Albumin, Serum 3.5 g/dL (3.2-5.0); Alkaline Phosphatase 68 U/L (45-117); Anion Gap 8 (5-15); BUN 18 mg/dL (7-18); BUN/Creat Ratio 26.9 RATIO (10-20); Calcium,Total 8.9 mg/dL (8.5-10.1); Chloride 104 mmol/L (98-107); Creatinine, Serum 0.67 mg/dL (0.55-1.02); EST Glomerular Filtration Rate 95 mL/min (>60); Est Glom Filt Rate - Afr Amer 115 mL/min (>60); Estimated Creatinine Clearance 93.63 ml/min; Globulin 3.3 g/dL (2.2-4.2); Glucose 158 mg/dL (74-106); Lipase 17 U/L (13-75); Potassium 3.6 mmol/L (3.5-5.1); Protein, Total 6.8 g/dL (6.4-8.2); Sodium Level 139 mmol/L (136-145); Troponin-I HS (w/2H Reflex) 16 pg/mL (3.0-54.0)
--- NOTE | 2023-07-22 09:02 | ED.RN ---
pt complaining about everything, bp cuff, iv, blankets, bed.
[2023-07-22] MEDS: Ketorolac 15 MG/ML Vial IV (09:28)
[2023-07-22] MEDS: Ondansetron 4 MG/2 ML Vial IV (09:28)
[2023-07-22 10:12] LABS: Reflex Troponin-HS? (from REC) Y
[2023-07-22] MEDS: hydrALAZINE 20 MG/ML Vial 10 MG IV (10:40)
[2023-07-22 11:05] LABS: Troponin-I HS 17 pg/mL (3.0-54.0)
== END 2023-07-22 11:37 | disposition home or self-care (01) ==
PROVIDERS: Emergency Provider Emergency Medicine; PCP Internal Medicine; Visit Provider Emergency Medicine
DX: R11.2 Nausea with vomiting, unspecified (principal); R07.9 Chest pain, unspecified; I25.10 Atherosclerotic heart disease of native coronary artery without angina pectoris; R53.81 Other malaise; Z87.891 Personal history of nicotine dependence
CPT/HCPCS: 71045; 80053; 83690; 84484; 85025; 87631; 93005; 96361; 96374; 96375; 99284; J7030; A4216; J2405

== ENCOUNTER 2024-03-12 10:01 | Emergency (ER) | payer MEDICARE, MEDICAID, SELFPAY ==
[2021-03-31 10:10] VITALS: BMI 34.4
[2024-03-12 10:02] VITALS: BP 149/91; PULSE 121; RESP 20; TEMP 36.6; O2SAT 92; BMI 35.4
--- NOTE | 2024-03-12 10:22 | EX.ED.DYSGE1 ---
HPI History of Present Illness Chief Complaint: Other, Pain/Inj Detail of Chief Complaint: Wound check Informant: patient Narrative Narrative: Patient presents via ambulance from home with complaint of pain over her spinal stimulator site and battery site. Patient states that she had her spinal stimulator replaced February 24 at [facility] by Dr. Figueroa. Patient had her sutures removed 4 days ago. She has been having increased pain over the site and today she felt a pop at the site and had purulent drainage expressed from the area. Patient states that she is try to call the surgeons office multiple times over the last Griselda days but has not gotten a call back due to increased pain to the area. She denies fever but is felt hot and wants to sit in a cool place. Patient has history of chronic pain. [facility] Medical History Abnormal stress test Acute coronary syndrome Arthritis Atherosclerotic heart disease of [place] coronary artery without angina pectoris Chronic pain Debility Decreased left ventricular function Depression Essential hypertension Former smoker GERD (gastroesophageal reflux disease) History of left heart catheterization (LHC) (~11/22/21) Hyperlipidemia Injury of fifth cervical spinal cord Insomnia Morbid obesity Neuropathic pain Rheumatoid arthritis Spinal cord stimulator status Home Medications ?Medication ?Instructions ?Recorded ?Last Taken ?Type esomeprazole magnesium 40 mg 40 mg PO BID reflux 05/06/20 12/14/20 09:00 History capsule,delayed release hydroxyzine HCl 25 mg tablet 25 - 50 mg PO Q8H PRN PRN Itching 05/06/20 12/14/20 09:00 History morphine 15 mg immediate release 15 mg PO Q12H chronic back pain 05/06/20 12/14/20 09:00 History tablet oxybutynin chloride 10 mg 10 mg PO DAILY sweat 05/06/20 12/14/20 09:00 History tablet,extended release 24 hr paroxetine HCl 20 mg tablet 30 mg PO DAILY depression 05/06/20 12/14/20 09:00 History cholecalciferol (vitamin D3) 50 2,000 unit PO DAILY vitamin 12/14/20 12/14/20 09:00 History mcg (2,000 unit) tablet (Vitamin D3) folic acid-vit B6-vit B12 2.5 1 tab PO DAILY supplement 12/14/20 12/14/20 09:00 History mg-25 mg-1 mg tablet (Folbee) methocarbamol 750 mg tablet 750 mg PO TID restless leg 12/14/20 12/14/20 09:00 History tizanidine 4 mg tablet 4 mg PO Q6H PRN PRN Spasms 12/14/20 12/14/20 09:00 History oxycodone-acetaminophen 7.5 mg-325 1 tab PO TID PRN Pain 12/16/20 Unknown History mg tablet prednisone 5 mg tablet 5 mg PO DAILY PRN RHEUMATOID 12/16/20 Unknown History ARTHRITIS FLARE lisinopril 5 mg tablet 5 mg PO DAILY #90 tabs 01/08/22 Unknown Rx potassium chloride 10 mEq 10 meq PO DAILY #90 caps 01/08/22 Unknown Rx capsule,extended release metaxalone 800 mg tablet 400 - 800 mg PO TID PRN muscle 07/17/23 Unknown History spasm ondansetron 4 mg disintegrating 4 mg PO Q6H PRN nausea and 07/22/23 Unknown Rx tablet vomiting #15 tabs carvedilol 6.25 mg tablet 6.25 mg PO BID #180 tabs 09/05/23 Unknown Rx atorvastatin 40 mg tablet 40 mg PO DAILY #90 tabs 09/09/23 Unknown Rx apixaban 5 mg tablet (Eliquis) 5 mg PO BID #60 tabs 01/21/24 Unknown Rx Allergy/AdvReac Type Severity Reaction Status Date / Time adhesive Allergy blisters Verified 03/12/24 10:08 codeine AdvReac Nausea Verified 03/12/24 10:08 Family History Father CAD (coronary artery disease) Other Heart disease Surgical History History of appendectomy Previous back surgery Social History (Updated 03/12/24 @ 10:11 by Janine Matthew) household members: spouse housing: apartment Smoking Status: Former smoker ROS ROS ED Review of Systems ROS Unobtainable: other Constitutional Constitutional ED: Reports lethargy; Denies chills, fever(s), sweats or weight loss Eyes Eyes: Denies blurry vision, change in vision or diplopia ENT ENT ED: Denies rhinorrhea or sore throat Cardiovascular Cardiovascular: Denies chest pain, orthopnea or racing heartbeat Respiratory/Chest Respiratory/Chest: Denies cough, dyspnea, dyspnea on exertion, orthopnea or sputum Gastrointestinal Gastrointestinal: Denies abdominal pain, diarrhea, nausea or vomiting Genitourinary Genitourinary ED: Denies dysuria, hematuria or urinary frequency Musculoskeletal Musculoskeletal: Reports back pain; Denies arthralgias, myalgias or neck pain Integumentary Denies abscess, Abrasions or rash Neurologic Neurologic: Denies headache(s) or weakness Psychiatric Psychiatric: Denies anxiety, depression or suicidal thoughts Endocrine Endocrinology: Denies polydipsia, polyphagia or polyuria Hematologic/Lymphatic Hematologic/Lymphatic: Denies easy bleeding, easy bruising or lymphadenopathy Allergic/Immunologic Allergic/Immunologic ED: Denies mouth swelling, tongue swelling or urticaria EXAM Physical Exam Const Vital Signs: 03/12/24 10:02 03/12/24 10:10 Temperature 97.8 F Temperature Source Oral Pulse Rate 121 H Respiratory Rate 20 H Respiratory Pattern Normal Blood Pressure 149/91 H Blood Pressure Mean 110 Pulse Ox 92 Oxygen Delivery Method Room Air Positive well nourished and well developed General Appearance ED: well developed and NAD HEENT Reports TM's clear and moist mucous membranes normocephalic and atraumatic; Negative for trauma or tenderness Tympanic Membrane ED: Yes TM's clear Eyes PERRL and EOMs intact bilaterally General Eye ED: Negative for pale conjunctiva or scleral icterus Neck no lymphadenopathy, supple and no JVD General: Negative for tenderness Chest Wall inspection of chest normal and palpation of chest normal Chest: Negative for tenderness Resp normal respiratory effort and clear to auscultation bilaterally Effort and Inspection: Negative for respiratory distress or pain with movement Auscultation: Negative for rhonchi, wheezes or diminished lung sounds Cardio regular rate, regular rhythm, S1 normal heart sound, S2 normal heart sound and no murmurs Peripheral Pulses: pulses 2+ throughout GI normal to inspection, nondistended, normoactive bowel sounds, soft to palpation, non-tender, non-distended and no masses Back/Spine no CVA tenderness Back/Spine Narrative: Evaluation of her back reveals recent well-healed surgical scar in the upper thoracic spine. No cellulitic changes noted to this area. Patient also has spinal stimulator noted to the lower lumbar region on the left where there is surrounding cellulitic changes to the skin and purulent drainage noted from the wound. No significant dehiscence. Extremity normal to inspection General Extremety ED: Negative for edema General Extremity: Negative for edema Neuro oriented x3, CN's II-XII intact bilaterally, no sensory deficits noted and gait normal Sensorium / Orientation: awake, alert, oriented to person, oriented to place and oriented to time Motor Exam: strength 5/5 throughout and strength abnormal Psych mental status grossly normal Skin no rashes or lesions noted and no wounds MDM MDM MDM Narrative Medical decision making narrative: Patient with a wound infection to spinal stimulator spot. Will obtain wound cultures as well as blood cultures. Will empirically started on vancomycin and Zosyn IV. Will obtain basic labs. Will discuss case with surgeon of record and patient may require transfer to their facility for definitive management of infected spinal stimulator site. Patient had a CBC with differential that showed a white count 5.7 with hemoglobin 9.9 and platelet count of 252. Chemistries unremarkable. Lactate normal at 1.1. At this point will attempt to contact her surgeon at [facility] to arrange transfer to their facility for definitive care of suspected infected spinal stimulator. We contacted [facility] transfer line who then discussed case with Dr. Kennedy zavala and he recommended transfer to their emergency department for evaluation. Discussed results with patient who is in agreement. Lab Data Attestation: I reviewed the patient's lab results. Labs: Laboratory Results - last 24 hr 03/12/24 10:30 WBC 5.7 RBC 3.24 L Hgb 9.9 L Hct 30.9 L MCV 95.4 MCH 30.6 MCHC 32.0 RDW Std Deviation 45.4 H RDW Coeff of Valdemar 13.1 Plt Count 252 MPV 8.3 Immature Gran % (Auto) 0.200 Neut % (Auto) 70.6 H Lymph % (Auto) 9.9 L G[place]pie % (Auto) 17.8 H Eos % (Auto) 1.2 Baso % (Auto) 0.3 Absolute Neuts (auto) 4.1 Absolute Lymphs (auto) 0.57 L Nucleated RBC % 0 Differential Comment SCANNED Sodium 141 Potassium 2.9 L Chloride 102 Carbon Dioxide 32.0 Anion Gap 7 BUN 19 H Creatinine 0.50 L Estim Creat Clear Calc 121.58 Est GFR (MDRD) Af Amer 161 Est GFR (MDRD) Non-Af 133 BUN/Creatinine Ratio 37.9 H Glucose 129 H Lactic Acid 1.1 Calcium 8.8 Discharge Plan Triage Chief Complaint: Other, Pain/Inj ED Provider: Sebas Quezada Dx/Rx/DC Orders Clinical Impression: Postoperative wound infection Prescriptions: No Action metaxalone 800 mg tablet 400 - 800 mg PO TID PRN (Reason: muscle spasm) oxybutynin chloride 10 MG tablet extended release 24hr 10 mg PO DAILY paroxetine HCl 20 MG tablet 30 mg PO DAILY esomeprazole magnesium 40 MG capsule 40 mg PO BID hydroxyzine HCl 25 MG tablet 25 - 50 mg PO Q8H PRN PRN (Reason: Itching) morphine 15 MG tablet 15 mg PO Q12H tizanidine 4 mg tablet 4 mg PO Q6H PRN PRN (Reason: Spasms) Folbee 2.5-25-1 mg tablet 1 tab PO DAILY Patient Comments: TAKE 1 TABLET BY MOUTH ONCE DAILY methocarbamol 750 mg tablet 750 mg PO TID cholecalciferol (vitamin D3) [Vitamin D3] 50 mcg (2,000 unit) tablet 2,000 unit PO DAILY Patient Comments: TAKE 1 TABLET BY MOUTH ONCE DAILY oxycodone-acetaminophen 7.5-325 mg tablet 1 tab PO TID PRN (Reason: Pain) Patient Comments: TAKE 1 TABLET BY MOUTH THREE TIMES DAILY NEEDED prednisone 5 mg tablet 5 mg PO DAILY PRN (Reason: RHEUMATOID ARTHRITIS FLARE) Patient Comments: TAKE 1 TABLET BY MOUTH ONCE DAILY NEEDED FOR RHEUMATOID ARTHRITIS FLARE ondansetron 4 mg tablet,disintegrating 4 mg PO Q6H PRN (Reason: nausea and vomiting) Qty: 15 0RF lisinopril 5 mg tablet 5 mg PO DAILY Qty: 90 3RF potassium chloride 10 mEq capsule, extended release 10 meq PO DAILY Qty: 90 3RF carvedilol 6.25 mg tablet 6.25 mg PO BID Qty: 180 3RF Rx Instructions: Take 1 tablet, twice daily. atorvastatin 40 mg tablet 40 mg PO DAILY Qty: 90 3RF Eliquis 5 mg tablet 5 mg PO BID Qty: 60 11RF Primary Care Provider: Keren Bustamante Referrals: Keren Bustamante MD [Primary Care Provider] - Print Language: [place] Disposition Disposition: DC/Tx to Another Type of HCF
[2024-03-12] MEDS: Morphine 4 MG/ML Syringe IV ×2 (10:47→12:47)
[2024-03-12] MEDS: Piperacil/Tazobactam 4.5 GM in 0.9% Normal Saline (100mL MB+) 100 ML IV (10:48)
[2024-03-12 10:49] LABS: Absolute Lymphocyte Count 0.57 X10^3/uL (0.83-4.51); Absolute Neutrophil Count 4.1 X10^3/uL (2.0-7.7); Basophil# 0.02 X10^3/uL; Basophil% 0.3 % (0-1); Eosinophil# 0.07 X10^3/uL; Eosinophils% 1.2 % (0-5); Hematocrit 30.9 % (37-47); Hemoglobin 9.9 g/dL (12.0-15.0); Lymphocyte # 0.57 X10^3/ul (0.83-4.51); Lymphocyte % 9.9 % (19-41); Mean Corpuscular Hgb 30.6 pg (27.0-32.0); Mean Corpuscular Volume 95.4 fL (81-99); Mean Platelet Vol. 8.3 fl (6.2-12.0); Monocyte# 1.02 X10^3/uL; Monocyte% 17.8 % (0-10); NRBC Flagged by Analyzer 0 % (0-5); Neutrophil # 4.05 X10^3/uL (2.7-7.7); Neutrophil % 70.6 % (47-70); POSITIVE DIFFERENTIAL YES; POSITIVE MORPHOLOGY YES; Platelet Count 252 K/mm3 (150-450); RBC Distribution Width CV 13.1 % (11.6-14.6); RBC Distribution Width SD 45.4 fl (35.1-43.9); Red Blood Count 3.24 M/mm3 (4.2-5.4); White Blood Count 5.7 K/mm3 (4.4-11.0)
[2024-03-12 10:50] LABS: Differential Indicated SCAN CRITERIA MET
[2024-03-12 11:06] LABS: Anion Gap 7 (5-15); BUN 19 mg/dL (7-18); BUN/Creat Ratio 37.9 RATIO (10-20); Calcium,Total 8.8 mg/dL (8.5-10.1); Chloride 102 mmol/L (98-107); EST Glomerular Filtration Rate 133 mL/min (>60); Est Glom Filt Rate - Afr Amer 161 mL/min (>60); Estimated Creatinine Clearance 121.58 ml/min; Glucose 129 mg/dL (74-106); Potassium 2.9 mmol/L (3.5-5.1); Sodium Level 141 mmol/L (136-145)
[2024-03-12 11:15] LABS: Differential Comment SCANNED
[2024-03-12 11:19] LABS: Lactic Acid 1.1 mmol/L (0.4-1.9)
[2024-03-12] MEDS: Vancomycin HCl 1,250 MG in 0.9% Normal Saline (250mL Bag) 250 ML 167 MG IV (11:23)
[2024-03-12 12:44] VITALS: BP 148/76; PULSE 124; RESP 20; TEMP 36.6; O2SAT 97
== END 2024-03-12 13:01 | disposition other institution (70) ==
PROVIDERS: Emergency Provider Emergency Medicine; PCP Internal Medicine; Visit Provider Emergency Medicine
DX: T81.49XA Infection following a procedure, other surgical site, initial encounter (principal); I25.10 Atherosclerotic heart disease of native coronary artery without angina pectoris; E78.5 Hyperlipidemia, unspecified; I10 Essential (primary) hypertension; F32.A Depression, unspecified; Z79.01 Long term (current) use of anticoagulants; Z79.899 Other long term (current) drug therapy; Z87.891 Personal history of nicotine dependence; X58.XXXA Exposure to other specified factors, initial encounter
CPT/HCPCS: 80048; 83605; 85025; 87040; 87070; 87077; 87149; 87186; 87205; 96365; 96366; 96367; 96375; 96376; 99285; J7050; A4216

== ENCOUNTER → 2024-03-24 | Outpatient (CLI) | payer MEDICARE, MEDICAID, SELFPAY ==
[2021-03-31 10:10] VITALS: BMI 34.4
[2024-03-24 18:27] LABS: Absolute Lymphocyte Count 0.95 X10^3/uL (0.83-4.51); Absolute Neutrophil Count 5.2 X10^3/uL (2.0-7.7); Basophil# 0.04 X10^3/uL; Basophil% 0.5 % (0-1); Eosinophil# 0.42 X10^3/uL; Eosinophils% 5.5 % (0-5); Hematocrit 24.7 % (37-47); Hemoglobin 7.5 g/dL (12.0-15.0); Lymphocyte # 0.95 X10^3/ul (0.83-4.51); Lymphocyte % 12.5 % (19-41); Mean Corp Hgb Conc 30.4 g/dL (32-36); Mean Corpuscular Hgb 30.6 pg (27.0-32.0); Mean Corpuscular Volume 100.8 fL (81-99); Mean Platelet Vol. 8.8 fl (6.2-12.0); Monocyte# 0.97 X10^3/uL; Monocyte% 12.7 % (0-10); NRBC Flagged by Analyzer 0 % (0-5); Neutrophil % 68.3 % (47-70); Platelet Count 277 K/mm3 (150-450); RBC Distribution Width CV 13.2 % (11.6-14.6); RBC Distribution Width SD 48.8 fl (35.1-43.9); Red Blood Count 2.45 M/mm3 (4.2-5.4); White Blood Count 7.6 K/mm3 (4.4-11.0)
[2024-03-24 18:46] LABS: ALB/GLOB Ratio 0.7 RATIO (0.9-2.4); AST(SGOT) 15 U/L (15-37); Alanine Aminotransfer ALT/SGPT < 6 U/L (13-56); Albumin, Serum 2.1 g/dL (3.2-5.0); Alkaline Phosphatase 91 U/L (45-117); Anion Gap 5 (5-15); BUN 11 mg/dL (7-18); BUN/Creat Ratio 8.9 RATIO (10-20); Calcium,Total 7.8 mg/dL (8.5-10.1); Chloride 111 mmol/L (98-107); Creatinine, Serum 1.23 mg/dL (0.55-1.02); EST Glomerular Filtration Rate 47 mL/min (>60); Est Glom Filt Rate - Afr Amer 57 mL/min (>60); Globulin 3.1 g/dL (2.2-4.2); Glucose 93 mg/dL (74-106); Potassium 3.3 mmol/L (3.5-5.1); Protein, Total 5.2 g/dL (6.4-8.2); Sodium Level 146 mmol/L (136-145)
== END | disposition home or self-care (01) ==
PROVIDERS: PCP Internal Medicine; Visit Provider Internal Medicine
DX: T81.41XA Infection following a procedure, superficial incisional surgical site, initial encounter (principal); Z48.01 Encounter for change or removal of surgical wound dressing
CPT/HCPCS: 80053; 85025

== ENCOUNTER 2024-04-06 16:07 | Emergency (ER) | payer MEDICARE, MEDICAID, SELFPAY ==
[2021-03-31 10:10] VITALS: BMI 34.4
[2024-04-06 16:07] VITALS: BP 165/86; PULSE 60; RESP 18; TEMP 36.8; O2SAT 97; BMI 34.4
--- NOTE | 2024-04-06 16:48 | EDS_ITS ---
HPI History of Present Illness Chief Complaint: Abn Labs Informant: patient Onset/Context/Timing Onset: Weeks (1) Context: Gradual Onset Timing: Continuous Quality: Tired Location: Generalized Worsened by: Nothing Relieved by: Nothing Narrative Narrative: Patient presents with abnormal labs. Patient states she had labs drawn on 03/30/2024 and was told to come to the emergency department today for anemia and low potassium. Patient states she has been feeling tired over the last week. Patient denies any chest pain or shortness of breath. Patient denies any nausea or vomiting. Patient denies any diarrhea, melena, or hematochezia. Patient denies any fevers or chills. [facility] Medical History History of left heart catheterization (LHC) (~11/22/21) Atherosclerotic heart disease of [place] coronary artery without angina pectoris Abnormal stress test Decreased left ventricular function Essential hypertension Hyperlipidemia Former smoker Acute coronary syndrome Injury of fifth cervical spinal cord Spinal cord stimulator status Chronic pain Arthritis Depression GERD (gastroesophageal reflux disease) Insomnia Neuropathic pain Rheumatoid arthritis Morbid obesity Debility Home Medications ?Medication ?Instructions ?Recorded ?Last Taken ?Type esomeprazole magnesium 40 mg 40 mg PO BID reflux 05/06/20 12/14/20 09:00 History capsule,delayed release oxybutynin chloride 10 mg 10 mg PO DAILY sweat 05/06/20 12/14/20 09:00 History tablet,extended release 24 hr cholecalciferol (vitamin D3) 50 2,000 unit PO DAILY vitamin 12/14/20 12/14/20 09:00 History mcg (2,000 unit) tablet (Vitamin D3) folic acid-vit B6-vit B12 2.5 1 tab PO DAILY supplement 12/14/20 12/14/20 09:00 History mg-25 mg-1 mg tablet (Folbee) methocarbamol 750 mg tablet 750 mg PO TID restless leg 12/14/20 12/14/20 09:00 History tizanidine 4 mg tablet 4 mg PO Q6H PRN PRN Spasms 12/14/20 12/14/20 09:00 History oxycodone-acetaminophen 7.5 mg-325 1 tab PO TID PRN Pain 12/16/20 Unknown History mg tablet prednisone 5 mg tablet 5 mg PO DAILY PRN RHEUMATOID 12/16/20 Unknown History ARTHRITIS FLARE lisinopril 5 mg tablet 5 mg PO DAILY #90 tabs 01/08/22 Unknown Rx potassium chloride 10 mEq 10 meq PO DAILY #90 caps 01/08/22 Unknown Rx capsule,extended release metaxalone 800 mg tablet 400 - 800 mg PO TID PRN muscle 07/17/23 Unknown History spasm ondansetron 4 mg disintegrating 4 mg PO Q6H PRN nausea and 07/22/23 Unknown Rx tablet vomiting #15 tabs carvedilol 6.25 mg tablet 6.25 mg PO BID #180 tabs 09/05/23 Unknown Rx atorvastatin 40 mg tablet 40 mg PO DAILY #90 tabs 09/09/23 Unknown Rx apixaban 5 mg tablet (Eliquis) 5 mg PO BID #60 tabs 01/21/24 Unknown Rx famotidine 20 mg tablet 20 mg PO QHS 04/06/24 Unknown History gabapentin 800 mg tablet 1,200 mg PO BID 04/06/24 Unknown History hydroxychloroquine 200 mg tablet 200 mg PO BID 04/06/24 Unknown History hydroxyzine pamoate 25 mg capsule 25 - 50 mg PO TID PRN 04/06/24 Unknown History metformin 500 mg tablet,extended 500 mg PO DAILY 04/06/24 Unknown History release 24 hr methotrexate sodium 25 mg/mL 15 mg subcut QWEEK 04/06/24 Unknown History injection solution morphine 15 mg tablet,extended 15 mg PO TID 04/06/24 Unknown History release omega-3 acid ethyl esters 1 gram 2 cap PO BID 04/06/24 Unknown History capsule paroxetine HCl 30 mg tablet 30 mg PO DAILY 04/06/24 Unknown History Allergy/AdvReac Type Severity Reaction Status Date / Time adhesive Allergy blisters Verified 04/06/24 16:07 codeine AdvReac Nausea Verified 04/06/24 16:07 Family History Father CAD (coronary artery disease) Other Heart disease Surgical History History of appendectomy Previous back surgery Social History household members: spouse housing: apartment Smoking Status: Former smoker ROS ROS ED Constitutional Constitutional ED: Denies chills or fever(s) Eyes Eyes: Denies blurry vision or change in vision ENT ENT ED: Denies rhinorrhea or sore throat Cardiovascular Cardiovascular: Denies chest pain or palpitations Respiratory/Chest Respiratory/Chest: Denies cough or dyspnea Gastrointestinal Gastrointestinal: Denies nausea or vomiting Genitourinary Genitourinary ED: Denies dysuria or hematuria Musculoskeletal Musculoskeletal: Reports back pain and neck pain Integumentary Reports rash; Denies abscess Neurologic Neurologic: Denies headache(s) or weakness Allergic/Immunologic Allergic/Immunologic ED: Denies mouth swelling or urticaria EXAM Physical Exam Const Vital Signs: 04/06/24 16:07 04/06/24 17:07 04/06/24 17:10 Temperature 98.3 F Temperature Source Oral Pulse Rate 60 86 Respiratory Rate 18 13 Respiratory Effort Respiratory Pattern Blood Pressure 165/86 H 166/81 H Blood Pressure Mean 112 109 Pulse Ox 97 95 98 Oxygen Delivery Method Room Air Room Air Room Air 04/06/24 17:10 04/06/24 17:10 04/06/24 18:00 Temperature Temperature Source Pulse Rate 96 Respiratory Rate Respiratory Effort Normal Non-Labored Respiratory Pattern Normal Blood Pressure 162/76 H Blood Pressure Mean 104 Pulse Ox 98 Oxygen Delivery Method Positive well nourished and well developed General Appearance ED: well developed and NAD HEENT Reports moist mucous membranes Neck supple and no JVD Resp normal respiratory effort and clear to auscultation bilaterally Cardio regular rate and regular rhythm GI non-tender Palpation: soft Neuro oriented x3, CN's II-XII intact bilaterally and no sensory deficits noted Sensorium / Orientation: alert Motor Exam: strength 5/5 throughout Psych mental status grossly normal MDM MDM MDM Narrative Medical decision making narrative: Differential diagnosis includes anemia, electrolyte abnormality, cardiac dysrhythmia, cardiac ischemia, pleural effusion, and anxiety. CBC to assess for leukocytosis, anemia. Basic metabolic profile will be obtained to assess for electrolyte abnormality and renal function. High-sensitivity troponin will be obtained to assess for cardiac ischemia. EKG will be obtained to assess for cardiac dysrhythmia and cardiac ischemia. Chest x-ray will be obtained to assess for pneumonia and pleural effusion. Lab Data Attestation: I reviewed the patient's lab results. Lab results narrative: CBC was reviewed. Hemoglobin was 8.8 and hematocrit was 27.9. These are improved from previous result. Basic metabolic profile was reviewed. CO2 was slightly elevated at 34. The remainder is within normal limits. Labs: Laboratory Results - last 24 hr 04/06/24 16:59 WBC 6.0 RBC 2.86 L Hgb 8.8 L Hct 27.9 L MCV 97.6 MCH 30.8 MCHC 31.5 L RDW Std Deviation 48.0 H RDW Coeff of Valdemar 13.3 Plt Count 260 MPV 8.3 Immature Gran % (Auto) 0.200 Neut % (Auto) 59.3 Lymph % (Auto) 21.2 [place] % (Auto) 11.9 H Eos % (Auto) 6.6 H Baso % (Auto) 0.8 Absolute Neuts (auto) 3.6 Absolute Lymphs (auto) 1.28 Nucleated RBC % 0 Sodium 142 Potassium 3.7 Chloride 105 Carbon Dioxide 34.0 H Anion Gap 2 L BUN 9 Creatinine 0.62 Estim Creat Clear Calc 96.53 Est GFR (MDRD) Af Amer 126 Est GFR (MDRD) Non-Af 104 BUN/Creatinine Ratio 14.5 Glucose 98 Calcium 8.9 EKG Initial EKG: Attestation: I personally reviewed and interpreted this EKG as follows: Interpretation: Sinus Rhythm (84) and No Acute Injury Pattern Comments: EKG was obtained. On my independent interpretation, it showed a normal sinus rhythm with a rate of 84. NV interval was normal at 148 ms. QRS interval was normal at 76 ms. QTc interval was slightly prolonged at 498 ms. [place] was normal. There are no acute ST or T wave changes. Prior EKG tracings: available for review Prior: Unchanged (07/22/2023) Treatment and Re-Evaluation :: Patient was advised of her findings. Patient was feeling better on reevaluation. Patient was instructed to follow-up with her primary care physician in 5 to 7 days. Patient was instructed to return if worse in any way. Patient understood and was agreeable with the plan. All questions were answered. Discharge Plan Triage Chief Complaint: Abn Labs ED Provider: Jose Olivera Dx/Rx/DC Orders Clinical Impression: Anemia, Fatigue Prescriptions: No Action metaxalone 800 mg tablet 400 - 800 mg PO TID PRN (Reason: muscle spasm) oxybutynin chloride 10 MG tablet extended release 24hr 10 mg PO DAILY esomeprazole magnesium 40 MG capsule 40 mg PO BID tizanidine 4 mg tablet 4 mg PO Q6H PRN PRN (Reason: Spasms) Folbee 2.5-25-1 mg tablet 1 tab PO DAILY Patient Comments: TAKE 1 TABLET BY MOUTH ONCE DAILY methocarbamol 750 mg tablet 750 mg PO TID cholecalciferol (vitamin D3) [Vitamin D3] 50 mcg (2,000 unit) tablet 2,000 unit PO DAILY Patient Comments: TAKE 1 TABLET BY MOUTH ONCE DAILY oxycodone-acetaminophen 7.5-325 mg tablet 1 tab PO TID PRN (Reason: Pain) Patient Comments: TAKE 1 TABLET BY MOUTH THREE TIMES DAILY NEEDED prednisone 5 mg tablet 5 mg PO DAILY PRN (Reason: RHEUMATOID ARTHRITIS FLARE) Patient Comments: TAKE 1 TABLET BY MOUTH ONCE DAILY NEEDED FOR RHEUMATOID ARTHRITIS FLARE ondansetron 4 mg tablet,disintegrating 4 mg PO Q6H PRN (Reason: nausea and vomiting) Qty: 15 0RF famotidine 20 mg tablet 20 mg PO QHS gabapentin 800 mg tablet 1,200 mg PO BID hydroxychloroquine 200 mg tablet 200 mg PO BID hydroxyzine pamoate 25 mg capsule 25 - 50 mg PO TID PRN metformin 500 mg tablet extended release 24 hr 500 mg PO DAILY methotrexate sodium 25 mg/mL solution 15 mg subcut QWEEK paroxetine HCl 30 mg tablet 30 mg PO DAILY morphine 15 mg tablet extended release 15 mg PO TID omega-3 acid ethyl esters 1 gram capsule 2 cap PO BID lisinopril 5 mg tablet 5 mg PO DAILY Qty: 90 3RF potassium chloride 10 mEq capsule, extended release 10 meq PO DAILY Qty: 90 3RF carvedilol 6.25 mg tablet 6.25 mg PO BID Qty: 180 3RF Rx Instructions: Take 1 tablet, twice daily. atorvastatin 40 mg tablet 40 mg PO DAILY Qty: 90 3RF Eliquis 5 mg tablet 5 mg PO BID Qty: 60 11RF Primary Care Provider: Keren Bustamante Referrals: Keren Bustamante MD [Primary Care Provider] - 3-5 Days Print Language: [place]ian Disposition Disposition: Home, Self Care
--- NOTE | 2024-04-06 17:04 | EKG12_ITS ---
Test Reason : Blood Pressure : */* mmHG Vent. Rate : 84 BPM Atrial Rate : 84 BPM P-R Int : 148 ms QRS Dur : 76 ms QT Int : 422 ms P-R-T Axes : 31 5 11 degrees QTcB Int : 498 ms Normal sinus rhythm Prolonged QT Abnormal ECG Confirmed by ARABELLA RUBIO MD ([id number]), non linear editor TORI KAM ([id number]) on 04/07/2024 8:17:39 AM Referred By: Confirmed By: ARABELLA RUBIO MD
[2024-04-06 17:07] VITALS: BP 166/81; PULSE 86; RESP 13; O2SAT 95
[2024-04-06 17:08] LABS: Absolute Lymphocyte Count 1.28 X10^3/uL (0.83-4.51); Absolute Neutrophil Count 3.6 X10^3/uL (2.0-7.7); Basophil# 0.05 X10^3/uL; Basophil% 0.8 % (0-1); Eosinophils% 6.6 % (0-5); Hematocrit 27.9 % (37-47); Hemoglobin 8.8 g/dL (12.0-15.0); Lymphocyte # 1.28 X10^3/ul (0.83-4.51); Lymphocyte % 21.2 % (19-41); Mean Corp Hgb Conc 31.5 g/dL (32-36); Mean Corpuscular Hgb 30.8 pg (27.0-32.0); Mean Corpuscular Volume 97.6 fL (81-99); Mean Platelet Vol. 8.3 fl (6.2-12.0); Monocyte# 0.72 X10^3/uL; Monocyte% 11.9 % (0-10); NRBC Flagged by Analyzer 0 % (0-5); Neutrophil # 3.57 X10^3/uL (2.7-7.7); Neutrophil % 59.3 % (47-70); Platelet Count 260 K/mm3 (150-450); RBC Distribution Width CV 13.3 % (11.6-14.6); Red Blood Count 2.86 M/mm3 (4.2-5.4)
[2024-04-06 17:10] VITALS: O2SAT 98
--- NOTE | 2024-04-06 17:15 | RAD_ITS ---
STUDY: X-RAY CHEST REASON FOR EXAM: Female, 63 years old. Weakness TECHNIQUE: Single frontal view of the chest. COMPARISON: July 22 2023 FINDINGS: Intraspinal electrodes have been removed. Cervical hardware. The lungs are clear and expanded. There is no demonstrated pleural abnormality. Normal size heart. Normal mediastinum and ovi. Normal visualized pulmonary arteries. Normal visualized aortic arch and descending thoracic aorta. Moderate hypertrophic multiple mild wedging fracture thoracolumbar spine, chronic. Normal visualized ribs, clavicles, and shoulders. There is no demonstrated abnormality of the visualized soft tissue structures of the upper abdomen. RAD/Chest PA and Lateral IMPRESSION: No acute disease Electronically Signed: Keenan Green MD at 18:31 EST ,
[2024-04-06 17:18] LABS: Anion Gap 2 (5-15); BUN 9 mg/dL (7-18); BUN/Creat Ratio 14.5 RATIO (10-20); Calcium,Total 8.9 mg/dL (8.5-10.1); Chloride 105 mmol/L (98-107); Creatinine, Serum 0.62 mg/dL (0.55-1.02); EST Glomerular Filtration Rate 104 mL/min (>60); Est Glom Filt Rate - Afr Amer 126 mL/min (>60); Estimated Creatinine Clearance 96.53 ml/min; Glucose 98 mg/dL (74-106); Potassium 3.7 mmol/L (3.5-5.1); Sodium Level 142 mmol/L (136-145)
[2024-04-06 18:00] VITALS: BP 162/76; PULSE 96
[2024-04-06 18:47] LABS: Troponin-I HS 10 pg/mL (3.0-54.0)
== END 2024-04-06 18:27 | disposition home or self-care (01) ==
PROVIDERS: Emergency Provider Emergency Medicine; PCP Internal Medicine; Visit Provider Emergency Medicine
DX: D64.9 Anemia, unspecified (principal); R53.83 Other fatigue; I25.10 Atherosclerotic heart disease of native coronary artery without angina pectoris; Z87.891 Personal history of nicotine dependence
CPT/HCPCS: 36592; 71046; 80048; 84484; 85025; 93005; 94760; 99283; A4216

== ENCOUNTER 2024-05-25 07:08 | Inpatient (IN) | payer MEDICARE, MEDICAID, SELFPAY ==
[2021-03-31 10:10] VITALS: BMI 34.4
[2024-05-25] VITALS (23 sets, daily range): BP systolic 85–145; BP diastolic 42–98; PULSE 90–101; RESP 12–28; TEMP 35.9–37.2; O2SAT 87–98; BMI 32.7; BMI 32.5
--- NOTE | 2024-05-25 07:16 | CT_ITS ---
STUDY: CT BRAIN WITHOUT CONTRAST REASON FOR EXAM: Female, 63 years old. Altered mental status, headache, nausea vomiting, RADIATION DOSAGE (If Supplied By Facility): CTDIvol = ( 44.99 ) mGy, DLP = ( 796.11 ) mGycm TECHNIQUE: Transaxial CT imaging of the brain was performed without administration of intravenous contrast material. Individualized dose optimization techniques were used for this CT. COMPARISON: No relevant priors. FINDINGS: Normal soft tissue structures. Normal calvarium. There is mild cerebral atrophy with widening of the extra-axial spaces and ventricular dilatation. There are areas of decreased attenuation within the white matter tracts of the supratentorial brain, consistent with microvascular disease changes. Normal basal ganglia and thalami. Normal brainstem. Normal cerebellum. There is no intracranial hemorrhage. There are no findings of an acute ischemic infarction. Atherosclerotic calcification of the cavernous portions of the internal carotid arteries bilaterally. Normal visualized paranasal sinuses. CT/Brain/Head without Contrast IMPRESSION: Normal unenhanced CT scan of the brain. Electronically Signed: Rudy Monroy MD at 8:36 EST ,
--- NOTE | 2024-05-25 07:17 | EKG12_ITS ---
Test Reason : ALT LOC Blood Pressure : */* mmHG Vent. Rate : 99 BPM Atrial Rate : 99 BPM P-R Int : 138 ms QRS Dur : 76 ms QT Int : 348 ms P-R-T Axes : 28 2 20 degrees QTcB Int : 446 ms Sinus rhythm with Premature atrial complexes with Aberrant conduction Otherwise normal ECG Confirmed by TSERING WOLFE, THEODORE ([id number]), manager editorial SHIREEN HORTON ([id number]) on 05/27/2024 6:18:44 AM Referred By: Confirmed By: THEODORE CAGLE MD
--- NOTE | 2024-05-25 07:21 | EX.ED.DYSGE1 ---
HPI History of Present Illness Chief Complaint: Weakness Detail of Chief Complaint: Patient arrived by ambulance. Apparently she has been vomiting all night Informant: family and EMS Onset/Context/Timing Onset: - (Past 24 hours) Context: Sudden Onset Timing: Continuous Quality: Altered mental status, nausea and vomiting, Location: Presents from home Current Severity: Unable to determine Maximum Severity: Unable to determine Worsened by: Unknown/unable to determine Relieved by: Unknown/unable to determine Associated Symptoms Associated Symptoms: Disorientation, inappropriate comments/responses to questions Narrative Narrative: Patient is a 63-year-old woman. She initially stated she was 70 years old. She did not know the month year or day of the week. Per nursing staff paramedics informed them that she has been vomiting all night. She was unable to get up. History is limited because patient is disoriented and not able to contribute to. Review of prior records indicates patient has history of pulmonary embolus, ST elevation CT with heart catheterization November 22, 2021 paroxysmal atrial fibrillation, essential hypertension, on anticoagulant (apixaban). Nurse informing that she reports she took too many pain pills. (I found this unlikely since patient has pupils that are 5 mm size to 6 mm in size.) Prior similar symptoms: No Recent Illness/Hospitalization: No PFSH PFSH Medical History History of left heart catheterization (LHC) (~11/22/21) Atherosclerotic heart disease of [place] coronary artery without angina pectoris Abnormal stress test Decreased left ventricular function Essential hypertension Hyperlipidemia Former smoker Acute coronary syndrome Injury of fifth cervical spinal cord Spinal cord stimulator status Chronic pain Arthritis Depression GERD (gastroesophageal reflux disease) Insomnia Neuropathic pain Rheumatoid arthritis Morbid obesity Debility Home Medications ?Medication ?Instructions ?Recorded ?Last Taken ?Type esomeprazole magnesium 40 mg 40 mg PO BID reflux 05/06/20 12/14/20 09:00 History capsule,delayed release oxybutynin chloride 10 mg 10 mg PO DAILY sweat 05/06/20 12/14/20 09:00 History tablet,extended release 24 hr cholecalciferol (vitamin D3) 50 2,000 unit PO DAILY vitamin 12/14/20 12/14/20 09:00 History mcg (2,000 unit) tablet (Vitamin D3) folic acid-vit B6-vit B12 2.5 1 tab PO DAILY supplement 12/14/20 12/14/20 09:00 History mg-25 mg-1 mg tablet (Folbee) methocarbamol 750 mg tablet 750 mg PO TID restless leg 12/14/20 12/14/20 09:00 History tizanidine 4 mg tablet 4 mg PO Q6H PRN PRN Spasms 12/14/20 12/14/20 09:00 History oxycodone-acetaminophen 7.5 mg-325 1 tab PO TID PRN Pain 12/16/20 Unknown History mg tablet prednisone 5 mg tablet 5 mg PO DAILY PRN RHEUMATOID 12/16/20 Unknown History ARTHRITIS FLARE lisinopril 5 mg tablet 5 mg PO DAILY #90 tabs 01/08/22 Unknown Rx potassium chloride 10 mEq 10 meq PO DAILY #90 caps 01/08/22 Unknown Rx capsule,extended release metaxalone 800 mg tablet 400 - 800 mg PO TID PRN muscle 07/17/23 Unknown History spasm ondansetron 4 mg disintegrating 4 mg PO Q6H PRN nausea and 07/22/23 Unknown Rx tablet vomiting #15 tabs carvedilol 6.25 mg tablet 6.25 mg PO BID #180 tabs 09/05/23 Unknown Rx atorvastatin 40 mg tablet 40 mg PO DAILY #90 tabs 09/09/23 Unknown Rx apixaban 5 mg tablet (Eliquis) 5 mg PO BID #60 tabs 01/21/24 Unknown Rx famotidine 20 mg tablet 20 mg PO QHS 04/06/24 Unknown History gabapentin 800 mg tablet 1,200 mg PO BID 04/06/24 Unknown History hydroxychloroquine 200 mg tablet 200 mg PO BID 04/06/24 Unknown History hydroxyzine pamoate 25 mg capsule 25 - 50 mg PO TID PRN 04/06/24 Unknown History metformin 500 mg tablet,extended 500 mg PO DAILY 04/06/24 Unknown History release 24 hr methotrexate sodium 25 mg/mL 15 mg subcut QWEEK 04/06/24 Unknown History injection solution morphine 15 mg tablet,extended 15 mg PO TID 04/06/24 Unknown History release omega-3 acid ethyl esters 1 gram 2 cap PO BID 04/06/24 Unknown History capsule paroxetine HCl 30 mg tablet 30 mg PO DAILY 04/06/24 Unknown History Allergy/AdvReac Type Severity Reaction Status Date / Time adhesive Allergy blisters Verified 04/06/24 16:07 codeine AdvReac Nausea Verified 04/06/24 16:07 Family History Father CAD (coronary artery disease) Other Heart disease Surgical History History of appendectomy Previous back surgery Social History household members: spouse housing: apartment Smoking Status: Former smoker ROS ROS ED Review of Systems ROS Unobtainable: due to mental status EXAM Physical Exam Const Vital Signs: 05/25/24 07:09 Temperature 98.7 F Temperature Source Oral Pulse Rate 99 Respiratory Rate 17 Blood Pressure 145/78 H Blood Pressure Mean 100 Pulse Ox 94 Oxygen Delivery Method Room Air Positive well nourished and well developed Constitutional Narrative: Patient has acrocyanosis. There is no central cyanosis. She appears pale. Gastric contents are noted on face. Of note patient did not hide she vomited. General Appearance ED: well developed, cyanotic and pallor; Negative for diaphoretic or NAD HEENT Reports dry mucous membranes HEENT Narrative: Poor oral hygiene. There is no obvious evidence of trauma. Mouth ED: Yes dry mucous membranes Mouth: dry mucous membranes Eyes PERRL and EOMs intact bilaterally General Eye ED: Yes pale conjunctiva; Negative for scleral icterus Neck no lymphadenopathy, supple and no JVD Chest Wall inspection of chest normal and palpation of chest normal Resp No normal respiratory effort and No clear to auscultation bilaterally Auscultation: rhonchi throughout Cardio regular rate, regular rhythm, S1 normal heart sound, S2 normal heart sound and no murmurs GI non-tender, non-distended and no masses; Negative for hepatosplenomegaly Palpation: soft Extremity Extremity Narrative: Acrocyanosis. Mottling of the upper extremities. Neuro No oriented x3 and CN's II-XII intact bilaterally Sensorium / Orientation: orientation impaired and stuporous; Negative for alert Psych Psych Narrative: Unable to assess Skin No no rashes or lesions noted General Skin Exam: pallor; Negative for elasticity normal or jaundice Sepsis Attestation Sepsis Alert: Yes Sepsis Attestation: Agree w/Sepsis Date exam was performed: 05/25/24 Time exam was performed: 08:42 Possible Source of Sepsis: Pulmonary Sepsis Organ Dysfunction Criteria Present: Creatinine > 2.0 mg/dL and New/Unexplained change in mental status Supportive Findings: Since patient has elevated creatinine which indicates endorgan dysfunction with infiltrate and altered mental status this would indicate the patient is septic/severe sepsis per CMS criteria. Will discuss case with hospitalist determine if based on [facility] whether this is considered sepsis or not. Fluid Resuscitation Fluid resuscitation indicated?: Yes Fluid Resuscitation ordered: 30 ml/kg fluid bolus ordered MDM MDM MDM Narrative Medical decision making narrative: With bruises noted on extremities and the fact that she is on apixaban with reported headache nausea vomiting will obtain CT of the head to rule out intracranial bleed. With abnormal respiratory sounds and obvious evidence of vomiting concerned patient may have aspirated. Will obtain ABG/VBG to assess pH CO2. Chest x-ray was obtained to evaluate for pneumonia in light of history and oscillatory findings. Since patient is diabetic on metformin BGT was ordered. Appropriate blood work was obtained to assess for endorgan dysfunction. Abraham was ordered for accurate I's and O's and to evaluate urine for infection. Per review of records patient is on gabapentin as well as opiate analgesics. As previously documented in light of the fact the patient's pupils are 5 to 6 mm doubt this represent opiate overdose. Lab Data Attestation: I reviewed the patient's lab results. Lab results narrative: White count is slightly elevated with slight shift. There is no bandemia. Patient has evidence of anemia with normal indices. Patient has evidence of endorgan dysfunction with elevated creatinine of 3.17 and BUN of 60. Potassium is elevated 5.7. Patient's EKG does not reveal changes concerning for hyperkalemia. In light of the fact that she is vomiting will not treat with Kayexalate at this time either. Lactate is normal at 1.1. Since patient has evidence of infiltrate and has been vomiting will treat for aspiration pneumonitis with Unasyn since she has no allergy to penicillin or cephalosporins and is from the community. Labs: Laboratory Results - last 24 hr 05/25/24 05/25/24 05/25/24 07:20 07:25 07:42 WBC 11.3 H RBC 3.27 L Hgb 9.9 L Hct 31.7 L MCV 96.9 MCH 30.3 MCHC 31.2 L RDW Std Deviation 45.6 H RDW Coeff of Valdemar 12.8 Plt Count 185 MPV 8.4 Immature Gran % (Auto) 0.400 Neut % (Auto) 80.5 H Lymph % (Auto) 7.3 L [place] % (Auto) 11.3 H Eos % (Auto) 0.1 Baso % (Auto) 0.4 Absolute Neuts (auto) 9.1 H Absolute Lymphs (auto) 0.82 L Nucleated RBC % 0 Sodium 138 Potassium 5.7 H Chloride 105 Carbon Dioxide 24.0 Anion Gap 10 BUN 60 H Creatinine 3.17 H Estim Creat Clear Calc 18.39 Est GFR (MDRD) Af Amer 19 L Est GFR (MDRD) Non-Af 16 L BUN/Creatinine Ratio 18.9 Glucose 112 H Lactic Acid 1.1 Calcium 9.0 Total Bilirubin 0.50 AST 40 H ALT 26 Alkaline Phosphatase 136 H Total Protein 7.2 Albumin 2.8 L Globulin 4.4 H Albumin/Globulin Ratio 0.6 L Urine Color Yellow Urine Clarity Clear Urine pH 5.0 Ur Specific [place] 1.025 Urine Protein 30 H Urine Glucose (UA) Normal Urine Ketones Negative Urine Occult Blood 25 H Urine Nitrite Negative Urine Bilirubin 1 H Urine Urobilinogen Normal Ur Leukocyte Esterase Negative Urine RBC 0-5 SEEN Urine WBC 0-5 SEEN Ur Squamous Epith Cells 0 SEEN Urine Bacteria 0 SEEN Urine Mucus 0 SEEN ABG Data Attestation: I personally reviewed and interpreted this ABG as follows: Interpretation: VBG reveals a primary respiratory acidosis with chronic secondary metabolic acidosis and metabolic alkalosis. This is a mixed acid-base picture. ABG results: ABG 05/25/24 07:23 Specimen Type TAYLOR Sample Site Not entered VBG pH 7.27 L VBG pO2 30 VBG HCO3 25 VBG Total CO2 26 VBG O2 Sat (Calc) 48 L VBG Base Excess -2 L POC Mix VBG pCO2 Pt Tmp 53.8 H O2 Delivery Device Not entered Radiography Chest X-Ray - ED: 1 View, Read by ED Physician (My interpretation at 08.), Heart, Mediastinum, Bony Structures and No Infiltrates (Infiltrate versus atelectasis right side involving the right middle lobe and right lower lobe. Right hemidiaphragm is elevated, which is chronic compared to x-ray obtained February 2024.) Diagnostic Testing: Clinical Impression(s) from Imaging Studies Brain CT 05/25/24 07:16 IMPRESSION: Normal unenhanced CT scan of the brain. Electronically Signed: Rudy Monroy MD at 8:36 EST , Chest X-Ray 05/25/24 07:52 IMPRESSION: Elevation of the right hemidiaphragm with right basilar infiltrate. Electronically Signed: Rudy Monroy MD at 8:38 EST , CT of the head without contrast reveals no evidence of intracranial bleed. There is no fluid in the sinuses. There is no evidence of extracranial hematoma and there is no evidence of fracture per my read at 0807. Management Discussion w/another healthcare provider: Hospitalist (Spoke with Dr. Quang griffin. Made aware of history physical. Patient be admitted to ICU for sepsis) Treatment and Re-Evaluation :: Since patient meets criteria for sepsis. Patient will receive a 30 cc/kg bolus of normal saline. Hospitalist paged for admission. Critical Care Time Critical Care Time: Yes Critical care time (excluding procedures): 30-74 minutes (32), Including time spent: (History, physical, documentation, review of prior records, treatment for sepsis due to aspiration pneumonitis), Discussing w/Patient &/or Family/Medical Practitioners, Discussing w/Consultants and Arranging Admission or Transfer Discharge Plan Dx/Rx/DC Orders Clinical Impression: Sepsis, Atherosclerotic heart disease of [place] coronary artery without angina pectoris, Acute kidney injury, Acute hyperkalemia, Acute alteration in mental status, Intractable nausea and vomiting, Aspiration pneumonitis, Current use of anticoagulant therapy Disposition Disposition: Acute Care [facility]
[2024-05-25 07:28] LABS: Blood Gas Specimen Type VEN; O2 Delivery Device Not entered; SITE Not entered; VBG BASE EXCESS -2 mmol/L (-1.0-3.5); VBG Bicarbonate 25 mmol/L (22-26); VBG PO2 30 mmHg (25-40); VBG SO2 48 % (50-70); VBG TCO2 26 mmol/L (23-33); VBG pCO2 53.8 mmHg (41-51); VBG pH 7.27 (7.32-7.42)
[2024-05-25 07:40] LABS: Absolute Lymphocyte Count 0.82 X10^3/uL (0.83-4.51); Absolute Neutrophil Count 9.1 X10^3/uL (2.0-7.7); Basophil# 0.04 X10^3/uL; Basophil% 0.4 % (0-1); Eosinophil# 0.01 X10^3/uL; Eosinophils% 0.1 % (0-5); Hematocrit 31.7 % (37-47); Hemoglobin 9.9 g/dL (12.0-15.0); Lymphocyte # 0.82 X10^3/ul (0.83-4.51); Lymphocyte % 7.3 % (19-41); Mean Corp Hgb Conc 31.2 g/dL (32-36); Mean Corpuscular Hgb 30.3 pg (27.0-32.0); Mean Corpuscular Volume 96.9 fL (81-99); Mean Platelet Vol. 8.4 fl (6.2-12.0); Monocyte# 1.28 X10^3/uL; Monocyte% 11.3 % (0-10); NRBC Flagged by Analyzer 0 % (0-5); Neutrophil # 9.09 X10^3/uL (2.7-7.7); Neutrophil % 80.5 % (47-70); Platelet Count 185 K/mm3 (150-450); RBC Distribution Width CV 12.8 % (11.6-14.6); RBC Distribution Width SD 45.6 fl (35.1-43.9); Red Blood Count 3.27 M/mm3 (4.2-5.4); White Blood Count 11.3 K/mm3 (4.4-11.0)
--- NOTE | 2024-05-25 07:52 | RAD_ITS ---
STUDY: X-RAY CHEST REASON FOR EXAM: Female, 63 years old. Scattered rhonchi, concern aspiration TECHNIQUE: Single AP portable view of the chest. COMPARISON: Comparison is made with prior study April 06, 2024. FINDINGS: EKG electrodes are seen. Elevation of the right hemidiaphragm with increased markings at the right lung base suggestive of a right lower lobe patchy infiltrate. There is no demonstrated pleural abnormality. There is mild cardiac enlargement. Normal mediastinum and ovi. Normal visualized pulmonary arteries. There is atherosclerotic tortuosity of the aortic arch and descending thoracic aorta. There are diffuse degenerative changes of the visualized thoracic spine. Healed left clavicular fracture. Prior lower cervical fusion. There is no demonstrated abnormality of the visualized soft tissue structures of the upper abdomen. RAD/Chest 1 View (Portable) IMPRESSION: Elevation of the right hemidiaphragm with right basilar infiltrate. Electronically Signed: Rudy Monroy MD at 8:38 EST ,
[2024-05-25 07:59] LABS: Bacteria 0 SEEN /hpf (None Seen); Mucous, Urine 0 SEEN /hpf (<or=2+); Squamous Epithelial Cells - UA 0 SEEN /hpf (5-10)
[2024-05-25 08:06] LABS: Glucose, Dipstick Normal (Normal); Ketone-Dipstick Negative (Negative); Leukocyte Esterase-Dipstick Negative /ul (Negative); Nitrite-Dipstick Negative (Negative); Occult Blood-Urine 25 /ul (Negative); Protein-Dipstick 30 mg/dl (Negative); Specific Gravity, Urine 1.025 (1.002-1.030); Urine Bilirubin Dipstick 1 mg/dL (Negative); Urine Urobilinogen Normal (Normal)
[2024-05-25 08:07] LABS: Color, Urine Yellow (Yellow); Urine Clarity Clear (Clear)
[2024-05-25 08:07] LABS: ALB/GLOB Ratio 0.6 RATIO (0.9-2.4); AST(SGOT) 40 U/L (15-37); Alanine Aminotransfer ALT/SGPT 26 U/L (13-56); Albumin, Serum 2.8 g/dL (3.2-5.0); Alkaline Phosphatase 136 U/L (45-117); Anion Gap 10 (5-15); BUN 60 mg/dL (7-18); BUN/Creat Ratio 18.9 RATIO (10-20); Chloride 105 mmol/L (98-107); Creatinine, Serum 3.17 mg/dL (0.55-1.02); EST Glomerular Filtration Rate 16 mL/min (>60); Est Glom Filt Rate - Afr Amer 19 mL/min (>60); Estimated Creatinine Clearance 18.39 ml/min; Globulin 4.4 g/dL (2.2-4.2); Glucose 112 mg/dL (74-106); Potassium 5.7 mmol/L (3.5-5.1); Protein, Total 7.2 g/dL (6.4-8.2); Sodium Level 138 mmol/L (136-145)
[2024-05-25 08:08] LABS: Lactic Acid 1.1 mmol/L (0.4-1.9)
[2024-05-25 08:15] LABS: White Blood Cells 0-5 SEEN /hpf (0-5)
[2024-05-25 08:16] LABS: Red Blood Cells-Urine 0-5 SEEN /hpf (0-5)
[2024-05-25] MEDS: 0.9% Normal Saline (1000mL) 1,000 ML 999 ML IV ×2 (08:53→09:21)
--- NOTE | 2024-05-25 08:54 | HP.PCM.HOS_ITS ---
HPI - General General Date of Admission: 05/25/24 Date of Service: 05/25/24 Chief Complaint: Altered mental status HPI Narrative PARADISE FAUST, is a 63 F who was brought to the emergency department by the family with increasing confusion as well as progressive generalized weakness. Patient reliability was questionable she however stated that she had recently been discharged from [facility] and was on admission for an infection and was discharged home on antibiotics. Per patient she began to experience profound weakness after completion of antibiotic. As stated above patient was found by family to be profoundly weak unable to get out of bed with increasing confusion. Patient was brought to the emergency department she was found to have acute kidney injury as well as right basilar infiltrate. Per documentation from the EMS squad patient had apparently vomited en route to the hospital. An assessment of septic shock secondary to aspiration pneumonia made. Patient was started on IV fluid resuscitation per protocol broad-spectrum antibiotic therapy after cultures have been obtained and subsequently admitted to the intensive care unit for further management [facility] Medical History History of left heart catheterization (LHC) (~11/22/21) Atherosclerotic heart disease of [place] coronary artery without angina pectoris Abnormal stress test Decreased left ventricular function Essential hypertension Hyperlipidemia Former smoker Acute coronary syndrome Injury of fifth cervical spinal cord Spinal cord stimulator status Chronic pain Arthritis Depression GERD (gastroesophageal reflux disease) Insomnia Neuropathic pain Rheumatoid arthritis Morbid obesity Debility Home Medications ?Medication ?Instructions ?Recorded ?Last Taken ?Type esomeprazole magnesium 40 mg 40 mg PO BID reflux 05/06/20 12/14/20 09:00 History capsule,delayed release oxybutynin chloride 10 mg 10 mg PO DAILY sweat 05/06/20 12/14/20 09:00 History tablet,extended release 24 hr cholecalciferol (vitamin D3) 50 2,000 unit PO DAILY vitamin 12/14/20 12/14/20 09:00 History mcg (2,000 unit) tablet (Vitamin D3) folic acid-vit B6-vit B12 2.5 1 tab PO DAILY supplement 12/14/20 12/14/20 09:00 History mg-25 mg-1 mg tablet (Folbee) methocarbamol 750 mg tablet 750 mg PO TID restless leg 12/14/20 12/14/20 09:00 History tizanidine 4 mg tablet 4 mg PO Q6H PRN PRN Spasms 12/14/20 12/14/20 09:00 History oxycodone-acetaminophen 7.5 mg-325 1 tab PO TID PRN Pain 12/16/20 Unknown History mg tablet prednisone 5 mg tablet 5 mg PO DAILY PRN RHEUMATOID 12/16/20 Unknown History ARTHRITIS FLARE lisinopril 5 mg tablet 5 mg PO DAILY #90 tabs 01/08/22 Unknown Rx potassium chloride 10 mEq 10 meq PO DAILY #90 caps 01/08/22 Unknown Rx capsule,extended release metaxalone 800 mg tablet 400 - 800 mg PO TID PRN muscle 07/17/23 Unknown History spasm ondansetron 4 mg disintegrating 4 mg PO Q6H PRN nausea and 07/22/23 Unknown Rx tablet vomiting #15 tabs carvedilol 6.25 mg tablet 6.25 mg PO BID #180 tabs 09/05/23 Unknown Rx atorvastatin 40 mg tablet 40 mg PO DAILY #90 tabs 09/09/23 Unknown Rx apixaban 5 mg tablet (Eliquis) 5 mg PO BID #60 tabs 01/21/24 Unknown Rx famotidine 20 mg tablet 20 mg PO QHS 04/06/24 Unknown History gabapentin 800 mg tablet 1,200 mg PO BID 04/06/24 Unknown History hydroxychloroquine 200 mg tablet 200 mg PO BID 04/06/24 Unknown History hydroxyzine pamoate 25 mg capsule 25 - 50 mg PO TID PRN 04/06/24 Unknown History metformin 500 mg tablet,extended 500 mg PO DAILY 04/06/24 Unknown History release 24 hr methotrexate sodium 25 mg/mL 15 mg subcut QWEEK 04/06/24 Unknown History injection solution morphine 15 mg tablet,extended 15 mg PO TID 04/06/24 Unknown History release omega-3 acid ethyl esters 1 gram 2 cap PO BID 04/06/24 Unknown History capsule paroxetine HCl 30 mg tablet 30 mg PO DAILY 04/06/24 Unknown History Allergy/AdvReac Type Severity Reaction Status Date / Time adhesive Allergy blisters Verified 04/06/24 16:07 codeine AdvReac Nausea Verified 04/06/24 16:07 Family History Father CAD (coronary artery disease) Other Heart disease Surgical History History of appendectomy Previous back surgery Social History household members: spouse housing: apartment Smoking Status: Former smoker ROS ROS Narrative Unable to obtain given patient being encephalopathic Vital Signs Vital Signs Vital Signs: 05/25/24 07:09 Temperature 98.7 F Temperature Source Oral Pulse Rate 99 Respiratory Rate 17 Blood Pressure 145/78 H Blood Pressure Mean 100 Pulse Ox 94 Oxygen Delivery Method Room Air Weight Weight: 81.1 kg Body Mass Index (BMI) 32.7 Physical Exam Narrative GENERAL: Awake but significantly lethargic with involuntary jerking movements involving upper extremity HEENT: Atraumatic; normocephalic EYES; Anicteric, Normal Conjunctiva NECK; supple, normal thyroid, RESPIRATORY: Diminished to auscultation CARDIOVASCULAR: Regular S1 S2, GI: soft, normoactive bowel sounds, : No Renal angle tenderness; EXTREMITIES: No edema, no clubbing, MUSCULOSKELETAL: no muscle wasting NEURO: Awake; no lateralizing signs. SKIN: No Rash PSYCH; encephalopathic Results Lab / Micro Data 05/25/24 07:20 05/25/24 07:20 Labs: Laboratory Results - last 24 hr 05/25/24 07:20: WBC 11.3 H, RBC 3.27 L, Hgb 9.9 L, Hct 31.7 L, MCV 96.9, MCH 30.3, MCHC 31.2 L, RDW Std Deviation 45.6 H, RDW Coeff of Valdemar 12.8, Plt Count 185, MPV 8.4, Immature Gran % (Auto) 0.400, Neut % (Auto) 80.5 H, Lymph % (Auto) 7.3 L, [place] % (Auto) 11.3 H, Eos % (Auto) 0.1, Baso % (Auto) 0.4, Absolute Neuts (auto) 9.1 H, Absolute Lymphs (auto) 0.82 L, Nucleated RBC % 0, Sodium 138, P otassium 5.7 H, Chloride 105, Carbon Dioxide 24.0, Anion Gap 10, BUN 60 H, C reatinine 3.17 H, Estim Creat Clear Calc 18.39, Est GFR (MDRD) Af Amer 19 L, Est GFR (MDRD) Non-Af 16 L, BUN/Creatinine Ratio 18.9, Glucose 112 H, Calcium 9.0, Total Bilirubin 0.50, AST 40 H, ALT 26, Alkaline Phosphatase 136 H, Total Protein 7.2, Albumin 2.8 L, Globulin 4.4 H, Albumin/Globulin Ratio 0.6 L 05/25/24 07:25: Lactic Acid 1.1 05/25/24 07:42: Urine Color Yellow, Urine Clarity Clear, Urine pH 5.0, Ur Specific [place] 1.025, Urine Protein 30 H, Urine Glucose (UA) Normal, Urine Ketones Negative, Urine Occult Blood 25 H, Urine Nitrite Negative, Urine Bilirubin 1 H, Urine Urobilinogen Normal, Ur Leukocyte Esterase Negative, Urine RBC 0-5 SEEN, Urine WBC 0-5 SEEN, Ur Squamous Epith Cells 0 SEEN, Urine Bacteria 0 SEEN, Urine Mucus 0 SEEN Micro: Microbiology 05/25/24 07:30 Mucosa - Nose SARS-CoV-2, Influenza & RSV (PCR) - Final ABG Data ABG results: ABG 05/25/24 07:23 Specimen Type TAYLOR Sample Site Not entered VBG pH 7.27 L VBG pO2 30 VBG HCO3 25 VBG Total CO2 26 VBG O2 Sat (Calc) 48 L VBG Base Excess -2 L POC Mix VBG pCO2 Pt Tmp 53.8 H O2 Delivery Device Not entered Imaging Radiology Impression Brain CT 05/25/24 07:16 IMPRESSION: Normal unenhanced CT scan of the brain. Electronically Signed: Rudy Monroy MD at 8:36 EST , Chest X-Ray 05/25/24 07:52 IMPRESSION: Elevation of the right hemidiaphragm with right basilar infiltrate. Electronically Signed: Rudy Monroy MD at 8:38 EST , Assessment & Plan Assessment/Plan (1) Aspiration pneumonitis: (2) Sepsis: (3) Acute kidney injury: PLAN: Plan Patient is a 63-year-old lady presented with altered mental status. An assessment of septic shock secondary to aspiration pneumonia was made. Patient was also found to have acute kidney injury with hyperkalemia admitted to the intensive care unit for further management Septic shock ? Secondary to aspiration pneumonia. Patient has been admitted to the intensive care unit IV fluid resuscitation?30 mL/kg was initiated from the ED if patient does not respond to IV fluids patient will be started on Levophed in the meantime blood cultures were drawn from the ED and patient started on broad- spectrum antibiotic therapy per protocol 2. Acute kidney injury ? Suspected to be secondary to ATN from patient septic shock patient started on IV fluid with subsequent monitoring of electrolytes Abraham catheter was ordered to be placed for accurate I's and O's. 3. Hyperkalemia ? Secondary to QUENTIN did order dextrose bicarb and calcium gluconate repeat labs ordered for 1500 4. Anemia ? Secondary to chronic disorder monitoring H&H and transfuse if patient becomes symptomatic or hemoglobin falls below 7 5. Diabetes mellitus type II -patient's oral hypoglycemics held. Placed on Accu-Cheks a.c. and at bedtime and covered with sliding scale insulin 6. Dyslipidemia ? Patient is on atorvastatin plan is to resume when patient level of sensorium improves 7. GERD ? Patient is on PPI patient started on IV Protonix 8. Paroxysmal atrial fibrillation Patient is on carvedilol which has been held given patient relatively low blood pressure patient is on systemic anticoagulation with apixaban plan is to continue 9. Rheumatoid arthritis ? Patient is on methotrexate q. weekly as well as hydroxychloroquine plan is to resume when patient level of sensorium improves 4. Chronic pain syndrome ? Patient is on gabapentin held given patient altered mental status 11. Depression with anxiety ? Patient is on paroxetine will resume when patient level of sensorium improves 12. DVT prophylaxis ? Patient is on apixaban Time spent in the patient's overall evaluation,decision-making process, review of diagnostic data, adjustment of management, discussion with other providers, nursing nursing and ancillary staff involved in patient's care documentation, 75 Minutes Advance planning; did discuss with family regarding advanced directives as well as CODE STATUS. Did explain the various scenarios involved ( FULL CODE, DNR CCA, DNR CCA with no intubation, and DNR CC and what each meant) plan is for patient to remain full code with CPR and intubation if warranted. Order was placed. Time spent on discussion 16 minutes. Sepsis Attestation Sepsis Attestation: Agree w/Sepsis Date exam was performed: 05/25/24 Time exam was performed: 09:00 Possible Source of Sepsis: Pulmonary Sepsis Organ Dysfunction Criteria Present: SBP < 90 mmHg or MAP < 65 mmHg, Creatinine > 2.0 mg/dL, Lactic Acid > 2 mmol/L and New/Unexplained change in mental status Fluid Resuscitation Fluid Resuscitation ordered: 30 ml/kg fluid bolus ordered Amount of fluid ordered: 2,430 Sepsis Note Date exam was performed: 05/25/24 Time exam was performed: 11:37 Response to fluids: Fluid responsive hypotension Charges/Coding Multi Select Codes Visit Charges Visit Charges: 71162 Init [place] [id number] Hospitalists' Procedures Procedures: 62709 Advncd Care Plan 30 Min
[2024-05-25] MEDS: Ampicillin/Sulbactam 3 GM in 0.9% Normal Saline (100mL MB+) 100 ML IV (09:02)
--- NOTE | 2024-05-25 11:00 | PCM.RX.CS ---
Consult Antibiotic Management Pharmacy has been consulted to manage selected antibiotic: Vancomycin Type of Intervention Type of Consult: New start Suspected Infection Suspected Infection: Sepsis and Pneumonia Prior Doses of Antibiotics Prior Doses of Antibiotics Received/Current Regimen: Vancomycin 2000 mg IV x 1 orderered for 05/25 @ 1100 Labs Labs: Sodium 138 mmol/L (136-145) 05/25/24 07:20 Potassium 5.7 mmol/L (3.5-5.1) H 05/25/24 07:20 Chloride 105 mmol/L (98-107) 05/25/24 07:20 Carbon Dioxide 24.0 mmol/L (21.0-32.0) 05/25/24 07:20 Anion Gap 10 (5-15) 05/25/24 07:20 BUN 60 mg/dL (7-18) H 05/25/24 07:20 Creatinine 3.17 mg/dL (0.55-1.02) H 05/25/24 07:20 Est GFR (MDRD) Af Amer 19 mL/min (>60) L 05/25/24 07:20 Est GFR (MDRD) Non-Af 16 mL/min (>60) L 05/25/24 07:20 BUN/Creatinine Ratio 18.9 RATIO (10-20) 05/25/24 07:20 Glucose 112 mg/dL (74-106) H 05/25/24 07:20 Microbiology Microbiology: Microbiology 05/25/24 07:30 Mucosa - Nose SARS-CoV-2, Influenza & RSV (PCR) - Final Dosing Weight Weight used for dosin kg Estimated Creatinine Clearance Estimated Creatinine Clearance: ~ 18 Goal Trough Goal Trough: 15-20 mcg/mL Pharmacy Plan for Drug Dosing Pharmacy Plan for Drug Dosing: Vancomycin 2000 mg IV x 1, further dosing pending random level tomorrow 05/26/24. Pharmacy Service will continue to monitor and adjust dosing as required. Follow-Up Labs Follow-Up Labs: Trough: Vancomycin Date/Time Labs Ordered Labs to be done on [date and time ordered]: 05/26/24 @ 1800
--- NOTE | 2024-05-25 11:16 | CON.PCM.CC_ITS ---
Assessment & Plan Assessment/Plan (1) Acute alteration in mental status: PLAN: Plan RECOMMENDATIONS: 1. Gentle IV fluid hydration as tolerated. 2. Continue antibiotics pending culture results. 3. Hold sedating medications. 4. Continue appropriate DVT prophylaxis. 5. Encourage incentive spirometer use and mobilize patient as tolerated. IMPRESSIONS: 1. Altered mental status/generalized weakness Clinical concern for intravascular volume depletion leading to acute kidney injury, compounded by polypharmacy. While sepsis was of initial concern, her elevated creatinine could be explained by intravascular volume depletion and her altered mental status is likely the consequence of her renal insufficiency coupled with the use of multiple sedating medications, such as gabapentin, hydroxyzine and extended release morphine. The patient's chest x-ray is less concerning for pneumonia and for more likely to be right basilar atelectasis in the setting of an elevated hemidiaphragm. Regardless, given that cultures are currently pending, antibiotics will be continued for the next 24 to 48 hours, pending results. It is reasonable to hydrate the patient as tolerated. The patient only had 2 episodes of emesis at home and has not had any further issues since being admitted. 2. Acute kidney injury Clinical concern for prerenal etiology. Agree with gentle IV fluid hydration. Continue to monitor urine output. No current indication for renal replacement therapy. Continue to hold home lisinopril. 3. History of rheumatoid arthritis/diabetes mellitus/paroxysmal atrial fibrillation/chronic pain syndrome/depression Complicates care, management, recovery and prognosis. Recommend holding home sedating medications for now. The patient will require evaluation by physical therapy. This note was generated with [employer] dictation software. It may contain incorrect words, spelling, and punctuation that were not noted in checking the note before signing. HPI Consult Data Date of Consult: 05/25/24 HPI Narrative Reason for Consultation: Sepsis HPI Narrative: The patient is a 63-year-old female, with a history as outlined below, who presented to the emergency department on May 25 with generalized weakness. Her family was also concerned that she was acting strangely. She has a known history of atrial fibrillation, Takotsubo cardiomyopathy and rheumatoid arthritis. The patient denied any pre-existing lung conditions. She stated that she does not utilize supplemental oxygen at her baseline. The patient reported that she has completed a sleep study in the past and was reportedly told that she does not have sleep apnea. The patient reported to me that yesterday she experienced 2 episodes of emesis, but denied any recent diarrhea or abdominal pain. It does appear that the patient is on several sedating medications at her baseline. On presentation to the emergency department, the patient was documented to be afebrile and hemodynamically stable. During her emergency department stay, the patient did have 1 documented low blood pressure reading at 97/48 mmHg. Laboratory evaluation was notable for a white blood cell count of 11,000 with a hemoglobin of 9.9 g/dL and platelet count of 185,000. Chemistry profile was notable for a potassium of 5.7, BUN of 60 and creatinine of 3.17. Lactate was normal at 1.1. COVID, influenza and RSV PCR's were negative. Blood cultures were collected. CT head was unremarkable. Chest x-ray demonstrated elevation of the right hemidiaphragm with what is likely associated atelectasis. There was preliminary concern in the emergency department for possible sepsis with pulmonary source of infection based upon creatinine greater than 2 and altered mental status. The patient received supplemental IV fluid hydration and was started on antimicrobials. She was subsequently admitted to the medical intensive care unit for further management. [facility] Medical History History of left heart catheterization (LHC) (~11/22/21) Atherosclerotic heart disease of [place] coronary artery without angina pectoris Abnormal stress test Decreased left ventricular function Essential hypertension Hyperlipidemia Former smoker Acute coronary syndrome Injury of fifth cervical spinal cord Spinal cord stimulator status Chronic pain Arthritis Depression GERD (gastroesophageal reflux disease) Insomnia Neuropathic pain Rheumatoid arthritis Morbid obesity Debility Home Medications ?Medication ?Instructions ?Recorded ?Last Taken ?Type esomeprazole magnesium 40 mg 40 mg PO BID reflux 05/06/20 12/14/20 09:00 History capsule,delayed release oxybutynin chloride 10 mg 10 mg PO DAILY sweat 05/06/20 12/14/20 09:00 History tablet,extended release 24 hr cholecalciferol (vitamin D3) 50 2,000 unit PO DAILY vitamin 12/14/20 12/14/20 09:00 History mcg (2,000 unit) tablet (Vitamin D3) folic acid-vit B6-vit B12 2.5 1 tab PO DAILY supplement 12/14/20 12/14/20 09:00 History mg-25 mg-1 mg tablet (Folbee) methocarbamol 750 mg tablet 750 mg PO TID restless leg 12/14/20 12/14/20 09:00 History tizanidine 4 mg tablet 4 mg PO Q6H PRN PRN Spasms 12/14/20 12/14/20 09:00 History oxycodone-acetaminophen 7.5 mg-325 1 tab PO TID PRN Pain 12/16/20 Unknown History mg tablet prednisone 5 mg tablet 5 mg PO DAILY PRN RHEUMATOID 12/16/20 Unknown History ARTHRITIS FLARE lisinopril 5 mg tablet 5 mg PO DAILY #90 tabs 01/08/22 Unknown Rx potassium chloride 10 mEq 10 meq PO DAILY #90 caps 01/08/22 Unknown Rx capsule,extended release metaxalone 800 mg tablet 400 - 800 mg PO TID PRN muscle 07/17/23 Unknown History spasm ondansetron 4 mg disintegrating 4 mg PO Q6H PRN nausea and 07/22/23 Unknown Rx tablet vomiting #15 tabs carvedilol 6.25 mg tablet 6.25 mg PO BID #180 tabs 09/05/23 Unknown Rx atorvastatin 40 mg tablet 40 mg PO DAILY #90 tabs 09/09/23 Unknown Rx apixaban 5 mg tablet (Eliquis) 5 mg PO BID #60 tabs 01/21/24 Unknown Rx famotidine 20 mg tablet 20 mg PO QHS 04/06/24 Unknown History gabapentin 800 mg tablet 1,200 mg PO BID 04/06/24 Unknown History hydroxychloroquine 200 mg tablet 200 mg PO BID 04/06/24 Unknown History hydroxyzine pamoate 25 mg capsule 25 - 50 mg PO TID PRN 04/06/24 Unknown History metformin 500 mg tablet,extended 500 mg PO DAILY 04/06/24 Unknown History release 24 hr methotrexate sodium 25 mg/mL 15 mg subcut QWEEK 04/06/24 Unknown History injection solution morphine 15 mg tablet,extended 15 mg PO TID 04/06/24 Unknown History release omega-3 acid ethyl esters 1 gram 2 cap PO BID 04/06/24 Unknown History capsule paroxetine HCl 30 mg tablet 30 mg PO DAILY 04/06/24 Unknown History Allergy/AdvReac Type Severity Reaction Status Date / Time adhesive Allergy blisters Verified 04/06/24 16:07 codeine AdvReac Nausea Verified 04/06/24 16:07 Family History Father CAD (coronary artery disease) Other Heart disease Surgical History History of appendectomy Previous back surgery Social History household members: spouse housing: apartment Smoking Status: Former smoker ROS ROS Narrative 10 systems were reviewed with pertinent positives as noted in the HPI above. Physical Exam Const alert and no apparent distress Constitutional Narrative: The patient is alert and oriented to person and place. She is nontoxic, sitting upright in bed eating lunch. HEENT normocephalic and head/scalp atraumatic Eyes PERRL, EOMs intact bilaterally and conjunctivae normal Neck supple General: trachea midline Chest inspection of chest normal Resp normal respiratory effort Auscultation: diminished lung sounds; Negative for rales, rhonchi or wheezes Cardio regular rate and regular rhythm GI normal to inspection, nondistended, normoactive bowel sounds Extremity no clubbing, cyanosis or edema Skin no rashes or lesions noted Neuro CN's II-XII intact bilaterally and no focal motor deficits Psych cooperative and affect normal Lab / Micro Data 05/25/24 07:20 05/25/24 07:20 Labs: Laboratory Results - last 24 hr 05/25/24 07:20: WBC 11.3 H, RBC 3.27 L, Hgb 9.9 L, Hct 31.7 L, MCV 96.9, MCH 30.3, MCHC 31.2 L, RDW Std Deviation 45.6 H, RDW Coeff of Valdemar 12.8, Plt Count 185, MPV 8.4, Immature Gran % (Auto) 0.400, Neut % (Auto) 80.5 H, Lymph % (Auto) 7.3 L, [place] % (Auto) 11.3 H, Eos % (Auto) 0.1, Baso % (Auto) 0.4, Absolute Neuts (auto) 9.1 H, Absolute Lymphs (auto) 0.82 L, Nucleated RBC % 0, Sodium 138, P otassium 5.7 H, Chloride 105, Carbon Dioxide 24.0, Anion Gap 10, BUN 60 H, C reatinine 3.17 H, Estim Creat Clear Calc 18.39, Est GFR (MDRD) Af Amer 19 L, Est GFR (MDRD) Non-Af 16 L, BUN/Creatinine Ratio 18.9, Glucose 112 H, Calcium 9.0, Total Bilirubin 0.50, AST 40 H, ALT 26, Alkaline Phosphatase 136 H, Total Protein 7.2, Albumin 2.8 L, Globulin 4.4 H, Albumin/Globulin Ratio 0.6 L 05/25/24 07:25: Lactic Acid 1.1 05/25/24 07:42: Urine Color Yellow, Urine Clarity Clear, Urine pH 5.0, Ur Specific [place] 1.025, Urine Protein 30 H, Urine Glucose (UA) Normal, Urine Ketones Negative, Urine Occult Blood 25 H, Urine Nitrite Negative, Urine Bilirubin 1 H, Urine Urobilinogen Normal, Ur Leukocyte Esterase Negative, Urine RBC 0-5 SEEN, Urine WBC 0-5 SEEN, Ur Squamous Epith Cells 0 SEEN, Urine Bacteria 0 SEEN, Urine Mucus 0 SEEN Micro: Microbiology 05/25/24 07:30 Mucosa - Nose SARS-CoV-2, Influenza & RSV (PCR) - Final ABG Data ABG results: ABG 05/25/24 07:23 Specimen Type TAYLOR Sample Site Not entered VBG pH 7.27 L VBG pO2 30 VBG HCO3 25 VBG Total CO2 26 VBG O2 Sat (Calc) 48 L VBG Base Excess -2 L POC Mix VBG pCO2 Pt Tmp 53.8 H O2 Delivery Device Not entered Imaging Radiology Impression Brain CT 05/25/24 07:16 IMPRESSION: Normal unenhanced CT scan of the brain. Electronically Signed: Rudy Monroy MD at 8:36 EST , Chest X-Ray 05/25/24 07:52 IMPRESSION: Elevation of the right hemidiaphragm with right basilar infiltrate. Electronically Signed: Rudy Monroy MD at 8:38 EST , Charges/Coding Visit Charges Inpatient E&M: 46945 Init Hosp L3
[2024-05-25] MEDS: Piperacil/Tazobactam 3.375 GM in 0.9% Normal Saline (50mL MB+) 50 ML IV ×2 (11:33→21:02)
[2024-05-25] MEDS: Heparin Injection (Vial) 5,000 UNIT/ML VIAL 5000 UNIT SC ×2 (11:40→21:03)
[2024-05-25] MEDS: Vancomycin HCl 2,000 MG in 0.9% Normal Saline (500mL Bag) 500 ML 250 MG IV (12:30)
[2024-05-25 14:24] LABS: Allen Test Positive; Base Excess 6 mmol/L (-2 to +2); Bicarbonate 32.3 mmol/L (22-26); Blood Gas Specimen Type ART; Mode Not entered; O2 Delivery Device Cannula; PO2 87 mmHG (75-100); SITE L Brach; SO2 95 % (95-99); Total Carbon Dioxide 34 mmol/L; pH 7.32 (7.35-7.45)
[2024-05-25] MEDS: Lactated Ringers 1,000 ML 175 ML IV ×2 (16:09→21:52)
[2024-05-25] MEDS: Midodrine HCl 5 MG Tablet 10 MG PO (16:40)
[2024-05-25 17:07] LABS: Bedside Glucose 118 mg/dL (74-106)
[2024-05-26] VITALS (18 sets, daily range): BP systolic 107–170; BP diastolic 55–99; PULSE 90–106; RESP 13–24; TEMP 36.3–37; O2SAT 87–99; BMI 34.0
[2024-05-26] MEDS: 0.9% Saline Lock 10 ML Syringe IV ×4 (01:59→18:58)
[2024-05-26] MEDS: Lactated Ringers 1,000 ML 175 ML IV (03:35)
[2024-05-26 03:57] LABS: Absolute Lymphocyte Count 0.97 X10^3/uL (0.83-4.51); Absolute Neutrophil Count 4.8 X10^3/uL (2.0-7.7); Basophil# 0.01 X10^3/uL; Basophil% 0.1 % (0-1); Eosinophil# 0.21 X10^3/uL; Eosinophils% 2.9 % (0-5); Hematocrit 24.6 % (37-47); Hemoglobin 7.7 g/dL (12.0-15.0); Lymphocyte # 0.97 X10^3/ul (0.83-4.51); Lymphocyte % 13.6 % (19-41); Mean Corp Hgb Conc 31.3 g/dL (32-36); Mean Corpuscular Hgb 30.1 pg (27.0-32.0); Mean Corpuscular Volume 96.1 fL (81-99); Mean Platelet Vol. 8.4 fl (6.2-12.0); Monocyte# 1.06 X10^3/uL; Monocyte% 14.9 % (0-10); NRBC Flagged by Analyzer 0 % (0-5); Neutrophil # 4.84 X10^3/uL (2.7-7.7); Neutrophil % 68.1 % (47-70); Platelet Count 145 K/mm3 (150-450); RBC Distribution Width CV 13.2 % (11.6-14.6); RBC Distribution Width SD 46.5 fl (35.1-43.9); Red Blood Count 2.56 M/mm3 (4.2-5.4); White Blood Count 7.1 K/mm3 (4.4-11.0)
[2024-05-26 04:23] LABS: Anion Gap 3 (5-15); BUN 39 mg/dL (7-18); BUN/Creat Ratio 41.1 RATIO (10-20); Calcium,Total 8.4 mg/dL (8.5-10.1); Chloride 111 mmol/L (98-107); Creatinine, Serum 0.95 mg/dL (0.55-1.02); EST Glomerular Filtration Rate 64 mL/min (>60); Est Glom Filt Rate - Afr Amer 77 mL/min (>60); Glucose 110 mg/dL (74-106); Magnesium 1.8 mg/dL (1.6-2.6); Potassium 4.6 mmol/L (3.5-5.1); Sodium Level 142 mmol/L (136-145)
[2024-05-26] MEDS: Vancomycin IV 1,000 MG/200 ML BAG 200 MG IV ×2 (06:53→18:58)
--- NOTE | 2024-05-26 07:17 | PCM.PN.HOSP ---
Reason for Visit Reason for Visit: Diagnoses Sepsis, unspecified organism (05/25/24) Pneumonitis due to inhalation of food and vomit (05/25/24) Acute kidney failure, unspecified (05/25/24) Altered mental status, unspecified (05/25/24) Subjective Subjective Patient is a 63-year-old lady presented with altered mental status. An assessment of septic shock secondary to aspiration pneumonia was made. Patient was also found to have acute kidney injury with hyperkalemia admitted to the intensive care unit for further management. Patient did not require pressors blood pressure has responded to fluids. Objective Data Objective Data Vital Signs: Vital Signs Temp Pulse Resp BP Pulse Ox O2 Del Method O2 Flow Rate 98.6 F 102 H 21 H 140/67 H 97 Nasal Cannula 2 05/26/24 00:00 05/26/24 06:00 05/26/24 06:00 05/26/24 06:00 05/26/24 06:00 05/26/24 06:00 05/26/24 06:00 FiO2 40 05/25/24 15:21 Oxygen Flow Rate (L/min) 2 Oxygen Delivery Method Nasal Cannula Weight: 84.4 kg Body Mass Index (BMI) 34.0 Intake & Output: Intake and Output for Last 24 Hours 05/24/24 05/25/24 05/26/24 23:59 23:59 23:59 Intake Total 3168.2 / 3388.2 1270 / 1270 Output Total 950 / 1350 950 / 950 Balance 2218.2 / 2038.2 320 / 320 Lab / Micro Data 05/26/24 03:45 05/26/24 03:45 Labs: Laboratory Results - last 24 hr 05/25/24 07:20: WBC 11.3 H, RBC 3.27 L, Hgb 9.9 L, Hct 31.7 L, MCV 96.9, MCH 30.3, MCHC 31.2 L, RDW Std Deviation 45.6 H, RDW Coeff of Valdemar 12.8, Plt Count 185, MPV 8.4, Immature Gran % (Auto) 0.400, Neut % (Auto) 80.5 H, Lymph % (Auto) 7.3 L, [place] % (Auto) 11.3 H, Eos % (Auto) 0.1, Baso % (Auto) 0.4, Absolute Neuts (auto) 9.1 H, Absolute Lymphs (auto) 0.82 L, Nucleated RBC % 0, Sodium 138, Potassium 5.7 H, Chloride 105, Carbon Dioxide 24.0, Anion Gap 10, BUN 60 H, Creatinine 3.17 H, Estim Creat Clear Calc 18.39, Est GFR (MDRD) Af Amer 19 L, Est GFR (MDRD) Non-Af 16 L, BUN/Creatinine Ratio 18.9, Glucose 112 H, Calcium 9.0, Total Bilirubin 0.50, AST 40 H, ALT 26, Alkaline Phosphatase 136 H, Total Protein 7.2, Albumin 2.8 L, Globulin 4.4 H, Albumin/Globulin Ratio 0.6 L 05/25/24 07:25: Lactic Acid 1.1 05/25/24 07:42: Urine Color Yellow, Urine Clarity Clear, Urine pH 5.0, Ur Specific [place] 1.025, Urine Protein 30 H, Urine Glucose (UA) Normal, Urine Ketones Negative, Urine Occult Blood 25 H, Urine Nitrite Negative, Urine Bilirubin 1 H, Urine Urobilinogen Normal, Ur Leukocyte Esterase Negative, Urine RBC 0-5 SEEN, Urine WBC 0-5 SEEN, Ur Squamous Epith Cells 0 SEEN, Urine Bacteria 0 SEEN, Urine Mucus 0 SEEN 05/25/24 16:36: POC Glucose 118 H 05/26/24 03:45: WBC 7.1, RBC 2.56 L, Hgb 7.7 L, Hct 24.6 L, MCV 96.1, MCH 30.1, MCHC 31.3 L, RDW Std Deviation 46.5 H, RDW Coeff of [place]dem[place] 13.2, Plt Count 145 L, MPV 8.4, Immature Gran % (Auto) 0.400, Neut % (Auto) 68.1, Lymph % (Auto) 13.6 L, [place] % (Auto) 14.9 H, Eos % (Auto) 2.9, Baso % (Auto) 0.1, Absolute Neuts (auto) 4.8, Absolute Lymphs (auto) 0.97, Nucleated RBC % 0, Sodium 142, Potassium 4.6, Chloride 111 H, Carbon Dioxide 28.0, Anion Gap 3 L, BUN 39 H, Creatinine 0.95, Estim Creat Clear Calc 61.20, Est GFR (MDRD) Af Amer 77, Est GFR (MDRD) Non-Af 64, BUN/Creatinine Ratio 41.1 H, Glucose 110 H, Calcium 8.4 L, Magnesium 1.8 Micro: Microbiology 05/25/24 11:26 Mucosa - Nasopharyngeal Respiratory Panel (PCR) - Final 05/25/24 11:26 Mucosa - Nose Coronavirus COVID-19 PCR - Final 05/25/24 11:45 Urine Catheter - Catheter Legionella Antigen - Final 05/25/24 11:45 Urine Catheter - Catheter Streptococcus pneumoniae Antigen (M - Final 05/25/24 07:30 Mucosa - Nose SARS-CoV-2, Influenza & RSV (PCR) - Final ABG Data ABG results: ABG 05/25/24 05/25/24 07:23 14:20 Specimen Type TAYLOR ART Sample Site Not entered L Brach pH 7.32 L Bicarbonate Actual 32.3 H Total CO2 34 Base Excess 6 H O2 Saturation 95 O2 % 5.0 ABG pCO2 63.0 H ABG pO2 87 Kraig Test Positive VBG pH 7.27 L VBG pO2 30 VBG HCO3 25 VBG Total CO2 26 VBG O2 Sat (Calc) 48 L VBG Base Excess -2 L POC Mix VBG pCO2 Pt Tmp 53.8 H O2 Delivery Device Not entered Cannula Vent Mode Not entered Radiography Diagnostic Testing: Radiology Impression Brain CT 05/25/24 07:16 IMPRESSION: Normal unenhanced CT scan of the brain. Electronically Signed: Rudy Monroy MD at 8:36 EST , Chest X-Ray 05/25/24 07:52 IMPRESSION: Elevation of the right hemidiaphragm with right basilar infiltrate. Electronically Signed: Rudy Monroy MD at 8:38 EST , Physical Exam Narrative GENERAL: Cooperative HEENT: Atraumatic; normocephalic EYES; Anicteric, Normal Conjunctiva NECK; supple, normal thyroid, RESPIRATORY: Diminished to auscultation CARDIOVASCULAR: Regular S1 S2, GI: soft, normoactive bowel sounds, : No Renal angle tenderness; EXTREMITIES: No edema, no clubbing, MUSCULOSKELETAL: no muscle wasting NEURO: Awake; no lateralizing signs. SKIN: No Rash PSYCH; flat affect Assessment & Plan Assessment/Plan (1) Aspiration pneumonitis: (2) Sepsis: (3) Acute kidney injury: PLAN: Plan Patient is a 63-year-old lady presented with altered mental status. An assessment of septic shock secondary to aspiration pneumonia was made. Patient was also found to have acute kidney injury with hyperkalemia admitted to the intensive care unit for further management 1. Septic shock ? Secondary to aspiration pneumonia. Patient has been admitted to the intensive care unit IV fluid resuscitation?30 mL/kg was initiated from the ED if patient does not respond to IV fluids patient will be started on Levophed in the meantime blood cultures were drawn from the ED and patient started on broad-spectrum antibiotic therapy per protocol ? Patient blood pressure did respond to IV fluid resuscitation and did not require pressors. Plan is for patient to be moved from the ICU to progressive care unit 2. Acute kidney injury ? Suspected to be secondary to ATN from patient septic shock patient started on IV fluid with subsequent monitoring of electrolytes Abraham catheter was ordered to be placed for accurate I's and O's. ? 05/26/2024; patient creatinine down to 0.95 3. Hyperkalemia ? Secondary to QUENTIN did order dextrose bicarb and calcium gluconate repeat labs ordered for 1500 ? 05/26/2024; patient potassium down to 4.6 4. Anemia ? Secondary to chronic disorder monitoring H&H and transfuse if patient becomes symptomatic or hemoglobin falls below 7 ? Patient hemoglobin down to 7.7 however no indication for blood transfusion at this 5. Diabetes mellitus type II -patient's oral hypoglycemics held. Placed on Accu-Cheks a.c. and at bedtime and covered with sliding scale insulin 6. Dyslipidemia ? Patient is on atorvastatin plan is to resume when patient level of sensorium improves 7. GERD ? Patient is on PPI patient started on IV Protonix 8. Paroxysmal atrial fibrillation Patient is on carvedilol which has been held given patient relatively low blood pressure patient is on systemic anticoagulation with apixaban plan is to continue 9. Rheumatoid arthritis ? Patient is on methotrexate q. weekly as well as hydroxychloroquine plan is to resume when patient level of sensorium improves 4. Chronic pain syndrome ? Patient is on gabapentin held given patient altered mental status 11. Depression with anxiety ? Patient is on paroxetine will resume when patient level of sensorium improves 12. DVT prophylaxis ? Patient is on apixaban Time spent in the patient's overall evaluation,decision-making process, review of diagnostic data, adjustment of management, discussion with other providers, nursing nursing and ancillary staff involved in patient's care documentation, 50 Minutes Charges/Coding Visit Charges Inpatient E&M: [id number] [facility] L3
--- NOTE | 2024-05-26 07:39 | PCM.PN.INT ---
Assessment & Plan Assessment/Plan (1) Acute alteration in mental status: PLAN: Plan RECOMMENDATIONS: 1. Okay to stop continuous IV fluids. 2. Continue empiric antimicrobials. Okay to stop tomorrow if cultures remain negative. 3. Hold sedating medications. 4. Continue appropriate DVT prophylaxis. 5. Encourage incentive spirometer use and mobilize patient as tolerated. 6. The patient is medically stable for transfer out of the intensive care unit. IMPRESSIONS: 1. Altered mental status/generalized weakness Clinical concern for intravascular volume depletion leading to acute kidney injury, compounded by polypharmacy. While sepsis was of initial concern, her elevated creatinine could be explained by intravascular volume depletion and her altered mental status is likely the consequence of her renal insufficiency coupled with the use of multiple sedating medications, such as gabapentin, hydroxyzine and extended release morphine. The patient's chest x-ray is less concerning for pneumonia and for more likely to be right basilar atelectasis in the setting of an elevated hemidiaphragm. The patient's hemodynamic status has improved with volume resuscitation. At this time, if cultures remain negative tomorrow, antibiotics can be discontinued from my perspective. 2. Acute kidney injury Resolved. Clinical concern for prerenal etiology. Creatinine normalized completely with IV fluid resuscitation. 3. History of rheumatoid arthritis/diabetes mellitus/paroxysmal atrial fibrillation/chronic pain syndrome/depression Complicates care, management, recovery and prognosis. Recommend holding home sedating medications for now. Physical therapy to work with the patient. This note was generated with [employer] dictation software. It may contain incorrect words, spelling, and punctuation that were not noted in checking the note before signing. Subjective Subjective The patient was seen and examined at the bedside this morning. Events from the last 24 hours have been reviewed. The patient is currently afebrile, hemodynamically stable and maintaining appropriate oxygen saturations on 2 L/min via nasal cannula. The patient's only complaint this morning is for that of sinus congestion. She is currently documented to be overall net +2.7 L for the hospitalization. White blood cell count is normal. Hemoglobin was noted to be 7.7 g/dL. Creatinine is within normal limits. Objective Data Objective Data The patient's most recent lab work, culture data and imaging studies have all been personally reviewed. Surface echocardiogram from April 2023 demonstrated an ejection fraction of 60% with stage I diastolic dysfunction. Respiratory viral panel was negative. COVID PCR was negative. Blood and urine cultures are pending. Vital Signs: Vital Signs Temp Pulse Resp BP Pulse Ox O2 Del Method O2 Flow Rate 98.6 F 102 H 21 H 140/67 H 97 Nasal Cannula 2 05/26/24 00:00 05/26/24 06:00 05/26/24 06:00 05/26/24 06:00 05/26/24 06:00 05/26/24 06:00 05/26/24 06:00 FiO2 40 05/25/24 15:21 Oxygen Flow Rate (L/min) 2 Oxygen Delivery Method Nasal Cannula Weight: 186 lb 1.122 oz Body Mass Index (BMI) 34.0 Intake & Output: Intake and Output for Last 24 Hours 05/24/24 05/25/24 05/26/24 23:59 23:59 23:59 Intake Total 3168.2 / 3388.2 1270 / 1270 Output Total 950 / 1350 950 / 950 Balance 2218.2 / 2038.2 320 / 320 Lab / Micro Data Attestation: I reviewed the patient's lab results. 05/26/24 03:45 05/26/24 03:45 Labs: Laboratory Results - last 24 hr 05/25/24 07:20: WBC 11.3 H, RBC 3.27 L, Hgb 9.9 L, Hct 31.7 L, MCV 96.9, MCH 30.3, MCHC 31.2 L, RDW Std Deviation 45.6 H, RDW Coeff of Valdemar 12.8, Plt Count 185, MPV 8.4, Immature Gran % (Auto) 0.400, Neut % (Auto) 80.5 H, Lymph % (Auto) 7.3 L, Reynolds % (Auto) 11.3 H, Eos % (Auto) 0.1, Baso % (Auto) 0.4, Absolute Neuts (auto) 9.1 H, Absolute Lymphs (auto) 0.82 L, Nucleated RBC % 0, Sodium 138, Potassium 5.7 H, Chloride 105, Carbon Dioxide 24.0, Anion Gap 10, BUN 60 H, Creatinine 3.17 H, Estim Creat Clear Calc 18.39, Est GFR (MDRD) Af Amer 19 L, Est GFR (MDRD) Non-Af 16 L, BUN/Creatinine Ratio 18.9, Glucose 112 H, Calcium 9.0, Total Bilirubin 0.50, AST 40 H, ALT 26, Alkaline Phosphatase 136 H, Total Protein 7.2, Albumin 2.8 L, Globulin 4.4 H, Albumin/Globulin Ratio 0.6 L 05/25/24 07:25: Lactic Acid 1.1 05/25/24 07:42: Urine Color Yellow, Urine Clarity Clear, Urine pH 5.0, Ur Specific [place] 1.025, Urine Protein 30 H, Urine Glucose (UA) Normal, Urine Ketones Negative, Urine Occult Blood 25 H, Urine Nitrite Negative, Urine Bilirubin 1 H, Urine Urobilinogen Normal, Ur Leukocyte Esterase Negative, Urine RBC 0-5 SEEN, Urine WBC 0-5 SEEN, Ur Squamous Epith Cells 0 SEEN, Urine Bacteria 0 SEEN, Urine Mucus 0 SEEN 05/25/24 16:36: POC Glucose 118 H 05/26/24 03:45: WBC 7.1, RBC 2.56 L, Hgb 7.7 L, Hct 24.6 L, MCV 96.1, MCH 30.1, MCHC 31.3 L, RDW Std Deviation 46.5 H, RDW Coeff of Valdemar 13.2, Plt Count 145 L, MPV 8.4, Immature Gran % (Auto) 0.400, Neut % (Auto) 68.1, Lymph % (Auto) 13.6 L, Reynolds % (Auto) 14.9 H, Eos % (Auto) 2.9, Baso % (Auto) 0.1, Absolute Neuts (auto) 4.8, Absolute Lymphs (auto) 0.97, Nucleated RBC % 0, Sodium 142, Potassium 4.6, Chloride 111 H, Carbon Dioxide 28.0, Anion Gap 3 L, BUN 39 H, Creatinine 0.95, Estim Creat Clear Calc 61.20, Est GFR (MDRD) Af Amer 77, Est GFR (MDRD) Non-Af 64, BUN/Creatinine Ratio 41.1 H, Glucose 110 H, Calcium 8.4 L, Magnesium 1.8 Micro: Microbiology 05/25/24 11:26 Mucosa - Nasopharyngeal Respiratory Panel (PCR) - Final 05/25/24 11:26 Mucosa - Nose Coronavirus COVID-19 PCR - Final 05/25/24 11:45 Urine Catheter - Catheter Legionella Antigen - Final 05/25/24 11:45 Urine Catheter - Catheter Streptococcus pneumoniae Antigen (M - Final 05/25/24 07:30 Mucosa - Nose SARS-CoV-2, Influenza & RSV (PCR) - Final ABG Data ABG results: ABG 05/25/24 14:20 Specimen Type ART Sample Site L Brach pH 7.32 L Bicarbonate Actual 32.3 H Total CO2 34 Base Excess 6 H O2 Saturation 95 O2 % 5.0 ABG pCO2 63.0 H ABG pO2 87 Kraig Test Positive O2 Delivery Device Cannula Vent Mode Not entered Radiography Diagnostic Testing: Radiology Impression Brain CT 05/25/24 07:16 IMPRESSION: Normal unenhanced CT scan of the brain. Electronically Signed: Rudy Monroy MD at 8:36 EST , Chest X-Ray 05/25/24 07:52 IMPRESSION: Elevation of the right hemidiaphragm with right basilar infiltrate. Electronically Signed: Rudy Monroy MD at 8:38 EST , Physical Exam Const alert, oriented x3 and no apparent distress Constitutional Narrative: Sitting upright in bed eating breakfast. General Appearance: cooperative HEENT normocephalic and head/scalp atraumatic Eyes PERRL, EOMs intact bilaterally and conjunctivae normal Neck supple General: trachea midline Chest inspection of chest normal Resp normal respiratory effort Auscultation: diminished lung sounds; Negative for rales, rhonchi or wheezes Cardio regular rate and regular rhythm GI normal to inspection, nondistended, normoactive bowel sounds Extremity no clubbing, cyanosis or edema Skin no rashes or lesions noted Neuro CN's II-XII intact bilaterally, moves all extremities and no focal motor deficits Psych Mood & Affect: flat affect Charges/Coding Visit Charges Inpatient E&M: 19246 Subs Hosp L2
[2024-05-26] MEDS: Heparin Injection (Vial) 5,000 UNIT/ML VIAL 5000 UNIT SC (08:49)
[2024-05-26] MEDS: Insulin Lispro 100 UNIT/ML INSULN.PEN SC (08:50)
[2024-05-26] MEDS: Piperacil/Tazobactam 3.375 GM in 0.9% Normal Saline (50mL MB+) 50 ML IV ×2 (08:56→21:09)
[2024-05-26 09:20] LABS: Bedside Glucose 186 mg/dL (74-106)
[2024-05-26 09:31] LABS: Hemoglobin A1c 5.4 % (3.8-5.6)
--- NOTE | 2024-05-26 10:55 | CASEMGMT ---
DADA HALL Assessment Face to Face with patient for initial transition planning/care coordination assessment. DADA HALL introduced self and role at [facility], pt voices understanding. Pt is A&Ox4 and is resting comfortably in bed and is calm. Care providers, pharmacy, and demographics verified. Admitting dx: Sepsis LACE Strata: 3 PCP: Keren Bustamante Specialists: [facility] for [facility] pain Preferred Pharmacy: [facility] Insurance: [facility] DUAL Complete, PAULINE Prescription Benefit: Yes LNOK: Elías Locke (SO), Ziyad Romano (Sister) Living Arrangements: Pt lives with her SO in a single story home with a basement and 3 steps to enter ADLs/IADLs: Pt reports that she is ind at baseline Transportation: Self, SO, family. Denies concerns. DME: Cane. FWW. W/C. Shower chair and grab bars. Pt is currently requiring additional oxygen and may qualify for home oxygen use. A verbal list of local in-network DME companies were provided to the pt at this time. Pt prefers [facility]. HHC/SNF: Hx with [facility] HH, [facility], and [facility] for OP PT Pt?s goal: Return home Plan: Home, follow for HH vs OP Tx. Follow for oxygen needs. There is no 6-Click score currently and therapy evaluations are pending. At this time, the pt is unsure if she would prefer HH or OP Tx (Pt has a history of both). Pt educated on homebound status that insurance requires. If pt does qualify for HH, pt declines wanting to review a list of local in-network HH agencies and states that she would prefer to go through [facility] HH again. If pt decides to attend OP Tx instead, pt states that she will go to again. CM to follow therapy recommendations and f/u with the pt once appropriate. Pt denies further questions or concerns at this time. Robinson Aguirre RN, CM
[2024-05-26 12:02] LABS: Bedside Glucose 132 mg/dL (74-106)
[2024-05-26] MEDS: Ondansetron 4 MG/2 ML Vial IV (15:19)
[2024-05-26] MEDS: Acetaminophen 325 MG Tablet 650 MG PO (15:19)
[2024-05-26] MEDS: hydrOXYzine PAM 25 MG Capsule PO (15:20)
[2024-05-26] MEDS: Carvedilol 6.25 MG Tablet PO (16:23)
[2024-05-26 16:44] LABS: Bedside Glucose 135 mg/dL (74-106)
[2024-05-26] MEDS: Pantoprazole Sodium 40 MG Tablet PO (21:09)
[2024-05-26] MEDS: Gabapentin 400 MG Capsule PO (21:09)
[2024-05-26] MEDS: morphine SR 15 MG Tablet PO (21:09)
[2024-05-26] MEDS: APIXABAN 5 MG TABLET PO (21:11)
[2024-05-26] MEDS: Hydroxychloroquine 200 MG Tablet PO (21:12)
[2024-05-27] VITALS (8 sets, daily range): BP systolic 105–182; BP diastolic 69–98; PULSE 80–106; RESP 16–24; TEMP 36.5–36.6; O2SAT 92–98; BMI 33.5
[2024-05-27] MEDS: Albuterol 2.5 MG/3 ML VIAL.NEB. INHALATION (02:01)
--- NOTE | 2024-05-27 02:34 | NURSING ---
This RN entered patient room to place the patient on oxygen 2L NC. Patient had strongly refused Bipap use earlier in shift for both nursing and respiratory. Attempted to reorient the patient that while bipap is preferred for while sleeping, if patient is able to tolerate NC to keep SpO2 >92 that is a compromise the patient was willing to accept at this point in time. Patient has self removed NC multiple times earlier, but the patient disclosed that they did not understand that it was an option in lieu of Bipap. Patient educated on the importance of supplemental oxygen; reinforcement necessary during daylight hours. Will continue to monitor.
[2024-05-27] MEDS: Vancomycin Trough/Random Due 1 LAB MC (06:20)
[2024-05-27] MEDS: morphine SR 15 MG Tablet PO ×2 (06:21→20:39)
[2024-05-27 06:52] LABS: Absolute Lymphocyte Count 0.82 X10^3/uL (0.83-4.51); Absolute Neutrophil Count 5.8 X10^3/uL (2.0-7.7); Basophil# 0.01 X10^3/uL; Basophil% 0.1 % (0-1); Eosinophil# 0.04 X10^3/uL; Eosinophils% 0.5 % (0-5); Hematocrit 24.8 % (37-47); Hemoglobin 7.7 g/dL (12.0-15.0); Lymphocyte # 0.82 X10^3/ul (0.83-4.51); Lymphocyte % 10.7 % (19-41); Mean Corpuscular Hgb 29.6 pg (27.0-32.0); Mean Corpuscular Volume 95.4 fL (81-99); Mean Platelet Vol. 8.6 fl (6.2-12.0); NRBC Flagged by Analyzer 0 % (0-5); Neutrophil # 5.78 X10^3/uL (2.7-7.7); Neutrophil % 75.3 % (47-70); Platelet Count 164 K/mm3 (150-450); RBC Distribution Width CV 12.7 % (11.6-14.6); RBC Distribution Width SD 43.6 fl (35.1-43.9); White Blood Count 7.7 K/mm3 (4.4-11.0)
[2024-05-27 07:15] LABS: Vancomycin, Trough Level 16.1 ug/mL (5.0-15.0)
[2024-05-27 07:23] LABS: Anion Gap 6 (5-15); BUN 17 mg/dL (7-18); BUN/Creat Ratio 40.6 RATIO (10-20); Calcium,Total 8.6 mg/dL (8.5-10.1); Chloride 106 mmol/L (98-107); Creatinine, Serum 0.42 mg/dL (0.55-1.02); EST Glomerular Filtration Rate 163 mL/min (>60); Est Glom Filt Rate - Afr Amer 197 mL/min (>60); Estimated Creatinine Clearance 140.65 ml/min; Glucose 108 mg/dL (74-106); Potassium 3.6 mmol/L (3.5-5.1); Sodium Level 140 mmol/L (136-145)
--- NOTE | 2024-05-27 07:30 | PCM.RX.CS ---
Consult Antibiotic Management Pharmacy has been consulted to manage selected antibiotic: Vancomycin Type of Intervention Type of Consult: Follow-up Prior Doses of Antibiotics Prior Doses of Antibiotics Received/Current Regimen: current dose is vanc 1000mg IV q12h Labs Labs: Sodium 140 mmol/L (136-145) 05/27/24 06:30 Potassium 3.6 mmol/L (3.5-5.1) 05/27/24 06:30 Chloride 106 mmol/L (98-107) 05/27/24 06:30 Carbon Dioxide 28.0 mmol/L (21.0-32.0) 05/27/24 06:30 Anion Gap 6 (5-15) 05/27/24 06:30 BUN 17 mg/dL (7-18) 05/27/24 06:30 Creatinine 0.42 mg/dL (0.55-1.02) L 05/27/24 06:30 Est GFR (MDRD) Af Amer 197 mL/min (>60) 05/27/24 06:30 Est GFR (MDRD) Non-Af 163 mL/min (>60) 05/27/24 06:30 BUN/Creatinine Ratio 40.6 RATIO (10-20) H 05/27/24 06:30 Glucose 108 mg/dL (74-106) H 05/27/24 06:30 Vancomycin Trough 16.1 ug/mL (5.0-15.0) H 05/27/24 06:30 Microbiology Microbiology: Microbiology 05/26/24 22:15 Stool Enteric Bacteriology - Final 05/26/24 22:15 Stool Clostridioides difficile (PCR) - Final 05/25/24 11:45 Urine Catheter - Catheter Urine Culture - Preliminary Culture exhibits no growth. 05/25/24 11:45 Urine Catheter - Catheter Legionella Antigen - Final 05/25/24 11:45 Urine Catheter - Catheter Streptococcus pneumoniae Antigen (M - Final 05/25/24 11:26 Mucosa - Nasopharyngeal Respiratory Panel (PCR) - Final 05/25/24 11:26 Mucosa - Nose Coronavirus COVID-19 PCR - Final 05/25/24 07:30 Mucosa - Nose SARS-CoV-2, Influenza & RSV (PCR) - Final Dosing Weight Weight used for dosin.2 kg Estimated Creatinine Clearance Estimated Creatinine Clearance: 61ml/min Goal Trough Goal Trough: 15-20 mcg/mL Pharmacy Plan for Drug Dosing Pharmacy Plan for Drug Dosing: The vanc trough drawn at 06:30 today (approx 11.5 hours after the previous dose) was 16.1. This is in goal range so will keep same dose. Repeat a trough in 2 days per protocol. Pharmacy Service will continue to monitor and adjust dosing as required. Follow-Up Labs Follow-Up Labs: Trough: Vancomycin Date/Time Labs Ordered Labs to be done on [date and time ordered]: 05/29/24 06:30
--- NOTE | 2024-05-27 07:38 | PCM.PN.HOSP ---
Reason for Visit Reason for Visit: Diagnoses Sepsis, unspecified organism (05/25/24) Pneumonitis due to inhalation of food and vomit (05/25/24) Acute kidney failure, unspecified (05/25/24) Altered mental status, unspecified (05/25/24) Objective Data Objective Data Vital Signs: Vital Signs Temp Pulse Resp BP Pulse Ox O2 Del Method O2 Flow Rate 97.8 F 105 H 18 151/69 H 95 Nasal Cannula 2 05/27/24 05:30 05/27/24 06:00 05/27/24 06:00 05/27/24 05:30 05/27/24 06:00 05/27/24 06:00 05/27/24 06:00 FiO2 40 05/25/24 15:21 Oxygen Flow Rate (L/min) 2 Oxygen Delivery Method Nasal Cannula Weight: 183 lb 6.793 oz Body Mass Index (BMI) 33.5 Intake & Output: Intake and Output for Last 24 Hours 05/25/24 05/26/24 05/27/24 23:59 23:59 23:59 Intake Total 3168.2 / 3388.2 3690 / 3690 290 / 290 Output Total 950 / 1350 1700 / 1800 450 / 450 Balance 2218.2 / 2038.2 1990 / 1890 -160 / -160 Lab / Micro Data 05/27/24 06:30 05/27/24 06:30 Labs: Laboratory Results - last 24 hr 05/26/24 03:45: Hemoglobin A1c 5.4, Phosphorus 2.0 L 05/26/24 08:40: POC Glucose 186 H 05/26/24 11:38: POC Glucose 132 H 05/26/24 16:21: POC Glucose 135 H 05/27/24 06:30: WBC 7.7, RBC 2.60 L, Hgb 7.7 L, Hct 24.8 L, MCV 95.4, MCH 29.6, MCHC 31.0 L, RDW Std Deviation 43.6, RDW Coeff of Valdemar 12.7, Plt Count 164, MPV 8.6, Immature Gran % (Auto) 0.400, Neut % (Auto) 75.3 H, Lymph % (Auto) 10.7 L, [place] % (Auto) 13.0 H, Eos % (Auto) 0.5, Baso % (Auto) 0.1, Absolute Neuts (auto) 5.8, Absolute Lymphs (auto) 0.82 L, Nucleated RBC % 0, Sodium 140, Potassium 3.6, Chloride 106, Carbon Dioxide 28.0, Anion Gap 6, BUN 17, Creatinine 0.42 L, Estim Creat Clear Calc 140.65, Est GFR (MDRD) Af Amer 197, Est GFR (MDRD) Non-Af 163, BUN/Creatinine Ratio 40.6 H, Glucose 108 H, Calcium 8.6, Vancomycin Trough 16.1 H Micro: Microbiology 05/26/24 22:15 Stool Enteric Bacteriology - Final 05/26/24 22:15 Stool Clostridioides difficile (PCR) - Final 05/25/24 11:45 Urine Catheter - Catheter Urine Culture - Preliminary Culture exhibits no growth. 05/25/24 11:45 Urine Catheter - Catheter Legionella Antigen - Final 05/25/24 11:45 Urine Catheter - Catheter Streptococcus pneumoniae Antigen (M - Final 05/25/24 11:26 Mucosa - Nasopharyngeal Respiratory Panel (PCR) - Final 05/25/24 11:26 Mucosa - Nose Coronavirus COVID-19 PCR - Final 05/25/24 07:30 Mucosa - Nose SARS-CoV-2, Influenza & RSV (PCR) - Final Physical Exam Narrative Seen and examined Patient is alert awake oriented x 3 but looks anxious sometimes talks irrelevant. On 2 L of oxygen Physical exam: General: Alert, Oriented x3, Cooperative HEENT: Atraumatic, PERRLA, EOMI, Normocephalic Oral: No Gingival or Mucosal Lesions/ Ulcerations Neck: Supple, No JVD, Negative Carotid Bruits Chest wall/Lungs: Air entry diminished in bilateral lung bases. No crepitation/rhonchi Cardiovascular: Regular rate, Regular Rhythm, Normal S1, Normal S2, No M/G/R Abdomen: Bowel Sounds Present, Soft, Non Tender, Non-Distended : No dysuria. Abraham catheter. No renal angle tenderness. No suprapubic tenderness. Extremities: No edema, Capillary Refill Less than 3 Seconds Skin: No rashes, No breakdown Musculoskeletal: No Tenderness to Palpation of Joints or Extremities Neurological: Cranial nerves II-XII grossly intact, DTR 2+/4. No acute focal neurological deficit. Psych/Mental Status: Normal Affect, Appropriate. Assessment & Plan Assessment/Plan (1) Aspiration pneumonitis: (2) Sepsis: (3) Acute kidney injury: PLAN: Plan Patient is a 63-year-old lady presented with altered mental status. An assessment of septic shock secondary to aspiration pneumonia was made. Patient was also found to have acute kidney injury with hyperkalemia admitted to the intensive care unit for further management 1. Sepsis was ruled out. ? Secondary to aspiration pneumonia. Patient has been admitted to the intensive care unit IV fluid resuscitation?30 mL/kg was initiated from the ED if patient does not respond to IV fluids patient will be started on Levophed in the meantime blood cultures were drawn from the ED and patient started on broad-spectrum antibiotic therapy per protocol ? Patient blood pressure did respond to IV fluid resuscitation and did not require pressors. Plan is for patient to be moved from the ICU to progressive care unit 05/27: Initially there was concern of sepsis but patient was dehydrated with hypovolemia, QUENTIN and altered mental status probably from polypharmacy with multiple sedating/tranquilizer medications such as gabapentin, morphine and hydroxyzine. Chest x-ray looked more basilar atelectasis rather than pneumonia. Infectious workup is negative therefore sepsis is ruled out and antibiotic discontinued 2. Acute kidney injury ? Suspected to be secondary to ATN from patient septic shock patient started on IV fluid with subsequent monitoring of electrolytes Abraham catheter was ordered to be placed for accurate I's and O's. ? 05/26/2024; patient creatinine down to 0.95 05/27: QUENTIN resolved. Creatinine 0.42. 3. Hyperkalemia ? Secondary to QUENTIN did order dextrose bicarb and calcium gluconate repeat labs ordered for 1500 ? 05/26/2024; patient potassium down to 4.6 4. Anemia ? Secondary to chronic disorder monitoring H&H and transfuse if patient becomes symptomatic or hemoglobin falls below 7 ? Patient hemoglobin down to 7.7 however no indication for blood transfusion at this 05/18 and H&H 7.7/24%. Platelet count 164K 5. Diabetes mellitus type II -patient's oral hypoglycemics held. Placed on Accu-Cheks a.c. and at bedtime and covered with sliding scale insulin 6. Dyslipidemia ? Patient is on atorvastatin plan is to resume when patient level of sensorium improves 7. GERD ? Patient is on PPI patient started on IV Protonix 8. Paroxysmal atrial fibrillation Patient is on carvedilol which has been held given patient relatively low blood pressure patient is on systemic anticoagulation with apixaban plan is to continue 9. Rheumatoid arthritis ? Patient is on methotrexate q. weekly as well as hydroxychloroquine plan is to resume when patient level of sensorium improves 4. Chronic pain syndrome ? Patient is on gabapentin held given patient altered mental status 11. Depression with anxiety ? Patient is on paroxetine will resume when patient level of sensorium improves 12. DVT prophylaxis ? Patient is on apixaban Time spent in the patient's overall evaluation,decision-making process, review of diagnostic data, adjustment of management, discussion with other providers, nursing nursing and ancillary staff involved in patient's care documentation, discussion with drivematic machine operator total 45 minutes Charges/Coding Visit Charges Inpatient E&M: 46837 [facility] Hosp L3
[2024-05-27] MEDS: 0.9% Saline Lock 10 ML Syringe IV (07:53)
[2024-05-27] MEDS: Vancomycin IV 1,000 MG/200 ML BAG 200 MG IV (07:53)
[2024-05-27] MEDS: Midodrine HCl 5 MG Tablet 10 MG PO (07:54)
[2024-05-27] MEDS: Carvedilol 6.25 MG Tablet PO ×2 (07:55→16:34)
[2024-05-27] MEDS: APIXABAN 5 MG TABLET PO ×2 (07:56→20:40)
[2024-05-27] MEDS: Pantoprazole Sodium 40 MG Tablet PO ×2 (07:56→20:40)
[2024-05-27] MEDS: Atorvastatin Calcium 40 MG Tablet PO (07:56)
[2024-05-27] MEDS: PARoxetine 10 MG Tablet 30 MG PO (07:56)
[2024-05-27] MEDS: Hydroxychloroquine 200 MG Tablet PO ×2 (07:56→20:40)
[2024-05-27] MEDS: Gabapentin 400 MG Capsule PO ×2 (08:06→20:39)
[2024-05-27] MEDS: hydrOXYzine PAM 25 MG Capsule PO ×2 (08:10→20:40)
[2024-05-27] MEDS: Piperacil/Tazobactam 3.375 GM in 0.9% Normal Saline (50mL MB+) 50 ML IV (09:55)
--- NOTE | 2024-05-27 10:49 | PN.CC_ITS ---
Assessment & Plan Assessment/Plan (1) Acute alteration in mental status: PLAN: Plan RECOMMENDATIONS: 1. Antibiotics can be discontinued from my perspective, given negative infectious workup. 2. Recommended as needed diuretic utilization to maintain euvolemic state. 3. Continue appropriate DVT prophylaxis. 4. Encourage incentive spirometer use and mobilize patient as tolerated. 5. Will sign off at this time. Please call with any additional questions. IMPRESSIONS: 1. Altered mental status/generalized weakness Clinical concern for intravascular volume depletion leading to acute kidney injury, compounded by polypharmacy. While sepsis was of initial concern, her elevated creatinine could be explained by intravascular volume depletion and her altered mental status is likely the consequence of her renal insufficiency coupled with the use of multiple sedating medications, such as gabapentin, hydroxyzine and extended release morphine. The patient's chest x-ray is less concerning for pneumonia and for more likely to be right basilar atelectasis in the setting of an elevated hemidiaphragm. The patient's hemodynamic status has improved with volume resuscitation. Given negative infectious workup to date, antibiotics can be discontinued. Sepsis has been ruled out from my perspective. 2. Acute kidney injury Resolved. Clinical concern for prerenal etiology. Creatinine normalized completely with IV fluid resuscitation. 3. History of rheumatoid arthritis/diabetes mellitus/paroxysmal atrial fibrillation/chronic pain syndrome/depression Complicates care, management, recovery and prognosis. Recommend holding home sedating medications for now. Physical therapy to work with the patient. This note was generated with [employer] dictation software. It may contain incorrect words, spelling, and punctuation that were not noted in checking the note before signing. Subjective Subjective The patient was seen and examined at the bedside this morning. Events from the last 24 hours have been reviewed. The patient is currently afebrile, hemodynamically stable and maintaining appropriate oxygen saturations on 2 L/min via nasal cannula. The patient is currently documented to be overall net +4.2 L for the hospitalization. Hemoglobin is stable at 7.7 g/dL. Creatinine is within normal limits. Objective Data Objective Data The patient's most recent lab work, culture data and imaging studies have all been personally reviewed. Surface echocardiogram from April 2023 demonstrated an ejection fraction of 60% with stage I diastolic dysfunction. Respiratory viral panel was negative. COVID PCR was negative. Blood and urine cultures have not demonstrated any growth to date. Vital Signs: Vital Signs Temp Pulse Resp BP Pulse Ox O2 Del Method O2 Flow Rate 97.8 F 105 H 18 151/69 H 95 Nasal Cannula 2 05/27/24 05:30 05/27/24 06:00 05/27/24 06:00 05/27/24 05:30 05/27/24 06:00 05/27/24 06:00 05/27/24 06:00 FiO2 40 05/25/24 15:21 Oxygen Flow Rate (L/min) 2 Oxygen Delivery Method Nasal Cannula Weight: 183 lb 6.793 oz Body Mass Index (BMI) 33.5 Intake & Output: Intake and Output for Last 24 Hours 05/25/24 05/26/24 05/27/24 23:59 23:59 23:59 Intake Total 3168.2 / 3388.2 3690 / 3690 490 / 490 Output Total 950 / 1350 1700 / 1800 450 / 450 Balance 2218.2 / 2038.2 1990 / 1890 40 / 40 Lab / Micro Data Attestation: I reviewed the patient's lab results. 05/27/24 06:30 05/27/24 06:30 Labs: Laboratory Results - last 24 hr 05/26/24 11:38: POC Glucose 132 H 05/26/24 16:21: POC Glucose 135 H 05/27/24 06:30: WBC 7.7, RBC 2.60 L, Hgb 7.7 L, Hct 24.8 L, MCV 95.4, MCH 29.6, MCHC 31.0 L, RDW Std Deviation 43.6, RDW Coeff of Valdemar 12.7, Plt Count 164, MPV 8.6, Immature Gran % (Auto) 0.400, Neut % (Auto) 75.3 H, Lymph % (Auto) 10.7 L, Atlantic % (Auto) 13.0 H, Eos % (Auto) 0.5, Baso % (Auto) 0.1, Absolute Neuts (auto) 5.8, Absolute Lymphs (auto) 0.82 L, Nucleated RBC % 0, Sodium 140, Potassium 3.6, Chloride 106, Carbon Dioxide 28.0, Anion Gap 6, BUN 17, Creatinine 0.42 L, Estim Creat Clear Calc 140.65, Est GFR (MDRD) Af Amer 197, Est GFR (MDRD) Non-Af 163, BUN/Creatinine Ratio 40.6 H, Glucose 108 H, Calcium 8.6, Vancomycin Trough 16.1 H Micro: Microbiology 05/25/24 11:45 Urine Catheter - Catheter Urine Culture - Final Culture exhibits no growth. 05/25/24 11:45 Urine Catheter - Catheter Legionella Antigen - Final 05/25/24 11:45 Urine Catheter - Catheter Streptococcus pneumoniae Antigen (M - Final 05/25/24 08:50 Blood Culture (Wb) - Anticubital Left Blood Culture - Preliminary No growth in 48 hours. 05/25/24 09:13 Blood Culture (Wb) - Anticubital Left Blood Culture - Preliminary No growth in 48 hours. 05/26/24 22:15 Stool Enteric Bacteriology - Final 05/26/24 22:15 Stool Clostridioides difficile (PCR) - Final 05/25/24 11:26 Mucosa - Nasopharyngeal Respiratory Panel (PCR) - Final 05/25/24 11:26 Mucosa - Nose Coronavirus COVID-19 PCR - Final 05/25/24 07:30 Mucosa - Nose SARS-CoV-2, Influenza & RSV (PCR) - Final ABG Data ABG results: ABG 05/25/24 14:20 Specimen Type ART Sample Site L Brach pH 7.32 L Bicarbonate Actual 32.3 H Total CO2 34 Base Excess 6 H O2 Saturation 95 O2 % 5.0 ABG pCO2 63.0 H ABG pO2 87 Kraig Test Positive O2 Delivery Device Cannula Vent Mode Not entered Radiography Diagnostic Testing: Radiology Impression Brain CT 05/25/24 07:16 IMPRESSION: Normal unenhanced CT scan of the brain. Electronically Signed: Rudy Monroy MD at 8:36 EST , Chest X-Ray 05/25/24 07:52 IMPRESSION: Elevation of the right hemidiaphragm with right basilar infiltrate. Electronically Signed: Rudy Monroy MD at 8:38 EST , Physical Exam Const alert, oriented x3 and no apparent distress General Appearance: cooperative HEENT normocephalic and head/scalp atraumatic Eyes PERRL, EOMs intact bilaterally and conjunctivae normal Neck supple General: trachea midline Chest inspection of chest normal Resp normal respiratory effort Auscultation: diminished lung sounds; Negative for rales, rhonchi or wheezes Cardio regular rate and regular rhythm GI normal to inspection, nondistended, normoactive bowel sounds Extremity no clubbing, cyanosis or edema Skin no rashes or lesions noted Neuro CN's II-XII intact bilaterally, moves all extremities and no focal motor deficits Psych Mood & Affect: flat affect Charges/Coding Visit Charges Inpatient E&M: 37795 Subs Hosp L2
[2024-05-27 11:46] LABS: Bedside Glucose 97 mg/dL (74-106)
--- NOTE | 2024-05-27 14:45 | CASEMGMT ---
RN CM to pt room at this time to discuss DC planning. Pt appears to have some minor agitation but is willing to communicate with this RN CM. This RN CM reviewed how the pt has been doing with therapy as well as her progression in the hospital. Pt states that she wants to DC home and would like HHC rather than OP Tx. Pt educated on homebound status for insurance purposes. Pt states understanding. Pt denies wanting to review a list of local in-network HHC agencies and states that she would prefer to go through [facility]. TC to [facility]. No answer, VM left with referral for SN, PT and OT. Tentative plan: Home with HHC and potential oxygen. CM to follow.
--- NOTE | 2024-05-27 15:39 | CASEMGMT ---
Discharge Planning A list of HH providers including quality and resource use data and consistent with the patient's preferred geographic region, medical needs, and insurance network was created in [facility] Guide.? This list was provided to the RN ISABEL. Penny Nunes, Discharge Planning Asst.
--- NOTE | 2024-05-27 15:47 | CASEMGMT ---
Addendum entered by Steven Aguirre 05/27/24 16:19: [facility] declines stating they are also out of network. RN CM to pt room at this time. Pt updated and pt states to send referrals to the remaining agencies as she does not have a current preference. Referrals sent to [facility], [facility], [facility], [facility], [facility], [facility], and [facility] at this time via [facility]. CM to follow. Original Note: [facility] returns call and states that they are unable to accept as they are not in network with the pt insurance. See [facility] human resources benefits assistant, note. List provided to the pt at this time. Pt states that she prefers to go through [facility]. Referral sent to [facility] at this time via [facility].
[2024-05-27 17:09] LABS: Bedside Glucose 106 mg/dL (74-106)
[2024-05-27] MEDS: Acetaminophen 325 MG Tablet 650 MG PO (20:39)
[2024-05-27] MEDS: tiZANidine HCl 2 MG Tablet PO (20:41)
[2024-05-28 02:30] VITALS: BMI 32.6
[2024-05-28 02:42] VITALS: BP 159/76; PULSE 105; RESP 18; TEMP 36.6; O2SAT 94
[2024-05-28 08:10] VITALS: O2SAT 91
[2024-05-28 08:34] LABS: Absolute Lymphocyte Count 1.02 X10^3/uL (0.83-4.51); Absolute Neutrophil Count 7.7 X10^3/uL (2.0-7.7); Basophil# 0.01 X10^3/uL; Basophil% 0.1 % (0-1); Eosinophil# 0.04 X10^3/uL; Eosinophils% 0.4 % (0-5); Hematocrit 25.9 % (37-47); Hemoglobin 8.1 g/dL (12.0-15.0); Lymphocyte # 1.02 X10^3/ul (0.83-4.51); Lymphocyte % 9.9 % (19-41); Mean Corp Hgb Conc 31.3 g/dL (32-36); Mean Corpuscular Hgb 29.2 pg (27.0-32.0); Mean Corpuscular Volume 93.5 fL (81-99); Mean Platelet Vol. 8.1 fl (6.2-12.0); Monocyte# 1.42 X10^3/uL; Monocyte% 13.8 % (0-10); NRBC Flagged by Analyzer 0 % (0-5); Neutrophil # 7.72 X10^3/uL (2.7-7.7); Neutrophil % 75.2 % (47-70); Platelet Count 179 K/mm3 (150-450); RBC Distribution Width CV 12.2 % (11.6-14.6); RBC Distribution Width SD 41.6 fl (35.1-43.9); Red Blood Count 2.77 M/mm3 (4.2-5.4); White Blood Count 10.3 K/mm3 (4.4-11.0)
[2024-05-28] MEDS: Gabapentin 400 MG Capsule PO ×2 (08:38→21:07)
[2024-05-28] MEDS: Hydroxychloroquine 200 MG Tablet PO ×2 (08:38→21:08)
[2024-05-28] MEDS: hydrOXYzine PAM 25 MG Capsule PO ×3 (08:38→21:07)
[2024-05-28] MEDS: Carvedilol 6.25 MG Tablet PO ×2 (08:38→16:48)
[2024-05-28] MEDS: APIXABAN 5 MG TABLET PO ×2 (08:39→21:07)
[2024-05-28] MEDS: Atorvastatin Calcium 40 MG Tablet PO (08:39)
[2024-05-28] MEDS: PARoxetine 10 MG Tablet 30 MG PO (08:39)
[2024-05-28] MEDS: Pantoprazole Sodium 40 MG Tablet PO ×2 (08:39→21:08)
[2024-05-28] MEDS: morphine SR 15 MG Tablet PO ×2 (08:43→21:07)
[2024-05-28 08:51] LABS: Anion Gap 8 (5-15); BUN 11 mg/dL (7-18); BUN/Creat Ratio 17.1 RATIO (10-20); Calcium,Total 8.7 mg/dL (8.5-10.1); Chloride 102 mmol/L (98-107); Creatinine, Serum 0.64 mg/dL (0.55-1.02); EST Glomerular Filtration Rate 100 mL/min (>60); Est Glom Filt Rate - Afr Amer 121 mL/min (>60); Estimated Creatinine Clearance 91.02 ml/min; Glucose 107 mg/dL (74-106); Sodium Level 138 mmol/L (136-145)
[2024-05-28 08:52] LABS: Bedside Glucose 105 mg/dL (74-106)
--- NOTE | 2024-05-28 10:12 | CASEMGMT ---
Addendum entered by Steven Aguirre 05/28/24 11:25: [facility] returns call and states that they can accept the pt for SOC either Saturday or Saturday. RN CM to pt room at this time. Pt states that she is OK with this and that she feels safe returning home with her SO prior to the HH starting. Pt denies further concerns at this time. CM to continue to follow. CM to follow oxygen needs as well. TC to [facility] and HH referral canceled. Addendum entered by Steven Aguirre 05/28/24 11:23: [facility] declines the pt and states that the pt does not have a MCR qualifying Dx. This RN ISABEL sent [place] pt H&P, Hospitalist Progress notes, [employer] Progress note, recent labs, updated HH order with pt active ICD codes, and MAR. [facility] still declines pt. TC to [facility]. [facility] states that they can accept the pt for SN only as PT/OT is unavailable d/t staffing. [facility] states SOC is TBD. TC to [facility]. No answer, left. Original Note: All HH companies have declined the pt so far e/f [facility], [facility], and [facility]. [facility] states that they are willing to look further into the referral. Updated HH order sent to [facility] via [facility]. [facility] and [facility] have not responded to the referral yet. CM to follow.
[2024-05-28 12:22] LABS: Bedside Glucose 136 mg/dL (74-106)
--- NOTE | 2024-05-28 12:46 | DS.PCM_ITS ---
Providers Date of Admission: 05/25/24 Date of Discharge: 05/28/24 Primary Care Physician: Dr. Keren Bustamante MD Consultations 05/25/24 10:34 Consult: Fiction And Nonfiction Writer Prose / Pulmonary Medicine Routine Consulting Provider: Intensivists/Pulmonary Med Reason for Consult: sepsis EMERGENT Consult: No MD Notified: Yes Date Notified: 05/25/24 Time Notified: 09:23 Method of Notification: Text Reason For Visit: SEPSIS Diagnosis Discharge Diagnosis (1) Aspiration pneumonitis: Status: Acute Code(s): J69.0 - Pneumonitis due to inhalation of food and vomit (2) Sepsis: Status: Acute Code(s): A41.9 - Sepsis, unspecified organism (3) Acute kidney injury: Status: Acute Code(s): N17.9 - Acute kidney failure, unspecified Plan Patient is a 63-year-old lady presented with altered mental status. An assessment of septic shock secondary to aspiration pneumonia was made. Patient was also found to have acute kidney injury with hyperkalemia admitted to the intensive care unit for further management 1. Sepsis was ruled out. ? Secondary to aspiration pneumonia. Patient has been admitted to the intensive care unit IV fluid resuscitation?30 mL/kg was initiated from the ED if patient does not respond to IV fluids patient will be started on Levophed in the meantime blood cultures were drawn from the ED and patient started on broad- spectrum antibiotic therapy per protocol ? Patient blood pressure did respond to IV fluid resuscitation and did not require pressors. Plan is for patient to be moved from the ICU to progressive care unit 05/27: Initially there was concern of sepsis but patient was dehydrated with hypovolemia, QUENTIN and altered mental status probably from polypharmacy with multiple sedating/tranquilizer medications such as gabapentin, morphine and hydroxyzine. Chest x-ray looked more basilar atelectasis rather than pneumonia. Infectious workup is negative therefore sepsis is ruled out and antibiotic discontinued 2. Acute kidney injury ? Suspected to be secondary to ATN from patient septic shock patient started on IV fluid with subsequent monitoring of electrolytes Abraham catheter was ordered to be placed for accurate I's and O's. ? 05/26/2024; patient creatinine down to 0.95 05/27: QUENTIN resolved. Creatinine 0.42. 3. Hyperkalemia ? Secondary to QUENTIN did order dextrose bicarb and calcium gluconate repeat labs ordered for 1500 ? 05/26/2024; patient potassium down to 4.6 4. Anemia ? Secondary to chronic disorder monitoring H&H and transfuse if patient becomes symptomatic or hemoglobin falls below 7 ? Patient hemoglobin down to 7.7 however no indication for blood transfusion at this 05/18 and H&H 7.7/24%. Platelet count 164K 5. Diabetes mellitus type II -patient's oral hypoglycemics held. Placed on Accu-Cheks a.c. and at bedtime and covered with sliding scale insulin 6. Dyslipidemia ? Patient is on atorvastatin plan is to resume when patient level of sensorium improves 7. GERD ? Patient is on PPI patient started on IV Protonix 8. Paroxysmal atrial fibrillation Patient is on carvedilol which has been held given patient relatively low blood pressure patient is on systemic anticoagulation with apixaban plan is to continue 9. Rheumatoid arthritis ? Patient is on methotrexate q. weekly as well as hydroxychloroquine plan is to resume when patient level of sensorium improves 4. Chronic pain syndrome ? Patient is on gabapentin held given patient altered mental status 11. Depression with anxiety ? Patient is on paroxetine will resume when patient level of sensorium improves Patient was also admitted with altered mental status, confused, acute encephalopathy probably related to polypharmacy. Patient on multiple medications including gabapentin, hydroxyzine, oxycodone, paroxetine, and tizanidine which can cause altered mental status. Advised about the polypharmacy. The dosages of gabapentin, tizanidine and frequency of morphine was decreased. 12. DVT prophylaxis ? Patient is on apixaban Discharge medication reconciliation done. Discharge follow-up instructions completed. Discharge process discussed with the patient and all questions were answered to patient's satisfaction. Follow with PCP in 1 to 2 weeks Total time spent, exact 35 minutes on discharge meds reconciliation, examination, coordination of care with nurses and ancillary staff, review of imaging and blood test and discussion with the patient on follow-up instructions. Medications at Discharge Home Medications cholecalciferol (vitamin D3) 50 mcg (2,000 unit) tablet (Vitamin D3) 2,000 unit PO DAILY vitamin 12/14/20 folic acid-vit B6-vit B12 2.5 mg-25 mg-1 mg tablet (Folbee) 1 tab PO DAILY supplement 12/14/20 oxycodone-acetaminophen 7.5 mg-325 mg tablet 1 tab PO BID PRN Pain 12/16/20 prednisone 5 mg tablet 5 mg PO DAILY PRN RHEUMATOID ARTHRITIS FLARE 12/16/20 lisinopril 5 mg tablet 5 mg PO DAILY bp #90 tabs 01/08/22 Held on 05/28/24. Instructions: Resume 2.5 mg daily from tomorrow a.m. then titrate up in consultation with PCP. potassium chloride 10 mEq capsule,extended release 10 meq PO DAILY supplement #90 caps 01/08/22 metaxalone 800 mg tablet 400 - 800 mg PO TID PRN muscle spasm 07/17/23 ondansetron 4 mg disintegrating tablet 4 mg PO Q6H PRN nausea and vomiting #15 tabs 07/22/23 carvedilol 6.25 mg tablet 6.25 mg PO BID afib #180 tabs 09/05/23 atorvastatin 40 mg tablet 40 mg PO DAILY cholesterol #90 tabs 09/09/23 apixaban 5 mg tablet (Eliquis) 5 mg PO BID afib #60 tabs 01/21/24 hydroxychloroquine 200 mg tablet 200 mg PO BID itching 04/06/24 metformin 500 mg tablet,extended release 24 hr 500 mg PO DAILY diabetes 04/06/24 Held on 05/28/24. Instructions: Hold for 3 days. paroxetine HCl 30 mg tablet 30 mg PO DAILY depression 04/06/24 esomeprazole magnesium 40 mg capsule,delayed release 40 mg PO DAILY reflux 30 days #0 caps 05/28/24 gabapentin 800 mg tablet 400 mg (1/2 x 800 mg) PO BID nueropathy 30 days #0 tabs 05/28/24 hydroxyzine pamoate 25 mg capsule 25 mg PO TID PRN anxiety 30 days #0 caps 05/28/24 morphine 15 mg tablet,extended release 15 mg PO BID pain 3 days #0 tabs 05/28/24 sennosides 8.6 mg-docusate sodium 50 mg tablet (Stimulant Laxative Plus) 2 tab PO BID #0 tabs 05/28/24 tizanidine 2 mg tablet 2 mg PO Q6H PRN PRN SPASMS #0 tabs 05/28/24 tizanidine 4 mg tablet 2 mg (1/2 x 4 mg) PO Q8H PRN Spasms 3 days #0 tabs 05/28/24 Physical Exam Narrative Seen and examined Patient is alert awake oriented x 3. On room air. Has history of anxiety and depression and chronic pain syndrome. Discontinue Abraham catheter. Physical exam: General: Alert, Oriented x3, Cooperative HEENT: Atraumatic, PERRLA, EOMI, Normocephalic Oral: No Gingival or Mucosal Lesions/ Ulcerations Neck: Supple, No JVD, Negative Carotid Bruits Chest wall/Lungs: Air entry diminished in bilateral lung bases. No crepitation/rhonchi Cardiovascular: Regular rate, Regular Rhythm, Normal S1, Normal S2, No M/G/R Abdomen: Bowel Sounds Present, Soft, Non Tender, Non-Distended : No dysuria. Abraham catheter. No renal angle tenderness. No suprapubic tenderness. Extremities: No edema, Capillary Refill Less than 3 Seconds Skin: No rashes, No breakdown Musculoskeletal: No Tenderness to Palpation of Joints or Extremities Neurological: Cranial nerves II-XII grossly intact, DTR 2+/4. No acute focal neurological deficit. Psych/Mental Status: Normal Affect, Appropriate. Weight / BMI Weight Weight: 178 lb 9.191 oz Body Mass Index (BMI) 32.6 ABG / Lab / Microbiology Data 05/28/24 08:18 05/28/24 08:18 Laboratory: Laboratory Results - last 24 hr 05/27/24 16:32: POC Glucose 106 05/28/24 06:00: WBC Cancelled, Corrected WBC Cancelled, RBC Cancelled, Hgb Cancelled, Hct Cancelled, MCV Cancelled, MCH Cancelled, MCHC Cancelled, RDW Std Deviation Cancelled, RDW Coeff of Valdemar Cancelled, Plt Count Cancelled, MPV Cancelled, Immature Gran % (Auto) Cancelled, Neut % (Auto) Cancelled, Lymph % (Auto) Cancelled, Archer % (Auto) Cancelled, Eos % (Auto) Cancelled, Baso % (Auto) Cancelled, Absolute Neuts (auto) Cancelled, Absolute Lymphs (auto) Cancelled, Total Counted Cancelled, Neutrophils % (Manual) Cancelled, Band Neutrophils % Cancelled, Lymphocytes % (Manual) Cancelled, Monocytes % (Manual) Cancelled, Eosinophils % (Manual) Cancelled, Basophils % (Manual) Cancelled, Metamyelocytes % Cancelled, Myelocytes % Cancelled, Promyelocytes % Cancelled, Blast Cells % Cancelled, Plasma Cell % (Manual) Cancelled, Other Cells % Cancelled, Nucleated RBC % Cancelled, Nucleated RBCs/100 WBC Cancelled, Differential Comment Cancelled, Diff Path Review Cancelled, Hypersegmented Neuts Cancelled, Atypical Lymphocytes Cancelled, Reactive Lymphocytes Cancelled, Smudge Cells Cancelled, Toxic Granulation Cancelled, Toxic Vacuolation Cancelled, Dohle Bodies Cancelled, Cameron Rods Cancelled, Platelet Estimate Cancelled, Plt Morphology Comment Cancelled, RBC Morphology Cancelled 05/28/24 06:00: RBC Morphology Cancelled, Polychromasia Cancelled, Hypochromasia Cancelled, Basophilic Stippling Cancelled, Anisocytosis Cancelled, Microcytosis Cancelled, Macrocytosis Cancelled, Spherocytes Cancelled, Sickle Cells Cancelled, Target Cells Cancelled, Tear Drop Cells Cancelled, Ovalocytes Cancelled, Stomatocytes Cancelled, [place] Bodies Cancelled, [place] Cells Cancelled, Bite Cells Cancelled, Crenated Cell Cancelled, Acanthocytes (Spur) Cancelled, Rouleaux Cancelled, Schistocytes Cancelled, Sodium Cancelled, Potassium Cancelled, Chloride Cancelled, Carbon Dioxide Cancelled, Anion Gap Cancelled, BUN Cancelled, Creatinine Cancelled, Estim Creat Clear Calc Cancelled, Est GFR (MDRD) Af Amer Cancelled, Est GFR (MDRD) Non-Af Cancelled, BUN/Creatinine Ratio Cancelled, Glucose Cancelled, Calcium Cancelled 05/28/24 08:18: WBC 10.3, RBC 2.77 L, Hgb 8.1 L, Hct 25.9 L, MCV 93.5, MCH 29.2, MCHC 31.3 L, RDW Std Deviation 41.6, RDW Coeff of Valdemar 12.2, Plt Count 179, MPV 8.1, Immature Gran % (Auto) 0.600, Neut % (Auto) 75.2 H, Lymph % (Auto) 9.9 L, M elida % (Auto) 13.8 H, Eos % (Auto) 0.4, Baso % (Auto) 0.1, Absolute Neuts (auto) 7.7, Absolute Lymphs (auto) 1.02, Nucleated RBC % 0, Sodium 138, Potassium 3.0 L , Chloride 102, Carbon Dioxide 29.0, Anion Gap 8, BUN 11, Creatinine 0.64, Estim Creat Clear Calc 91.02, Est GFR (MDRD) Af Amer 121, Est GFR (MDRD) Non-Af 100, BUN/Creatinine Ratio 17.1, Glucose 107 H, Calcium 8.7 05/28/24 08:34: POC Glucose 105 05/28/24 12:05: POC Glucose 136 H Microbiology: Microbiology 05/25/24 11:45 Urine Catheter - Catheter Urine Culture - Final Culture exhibits no growth. 05/25/24 11:45 Urine Catheter - Catheter Legionella Antigen - Final 05/25/24 11:45 Urine Catheter - Catheter Streptococcus pneumoniae Antigen (M - Final 05/25/24 08:50 Blood Culture (Wb) - Anticubital Left Blood Culture - Preliminary No growth in 48 hours. 05/25/24 09:13 Blood Culture (Wb) - Anticubital Left Blood Culture - Preliminary No growth in 48 hours. 05/26/24 22:15 Stool Enteric Bacteriology - Final 05/26/24 22:15 Stool Clostridioides difficile (PCR) - Final 05/25/24 11:26 Mucosa - Nasopharyngeal Respiratory Panel (PCR) - Final 05/25/24 11:26 Mucosa - Nose Coronavirus COVID-19 PCR - Final 05/25/24 07:30 Mucosa - Nose SARS-CoV-2, Influenza & RSV (PCR) - Final D/C Instructions Discharge Diet: Low fat / Low cholesterol, 1800 Calorie Control Diet and 2000 mg Sodium Diet Weight Bearing Status: Weight bearing as tolerated Call your doctor if you observe: Fever of 101 or Higher, Coldness, Increased Pain, Numbness or Tingling, Change in Color, Inability to urinate, Inability to have a bowel movement, Using more than 1 pad per hour, Shortness of breath, Dizziness, Fainting spells, Swelling in the ankles, Chest pain, Prolonged hiccupping, Increased palpitations (irregular heartbeat) and Calf discomfort DC O2, CPAP, BIPAP Needs PSN CPAP & BiPAP: BiPAP & CPAP Settings per PSN Mode BiPAP 05/27/24 11:59 Bipap Delivery Device Face Mask 05/25/24 15:21 BiPAP Inspiratory Pressure 14 05/25/24 15:21 BiPAP Expiratory Pressure 8 05/25/24 15:21 BiPAP Rate 12 05/25/24 15:21 Fraction of Inspired Oxygen ( 40 05/25/24 15:21 FIO2) Home O2 Discharge instructions: No When: IN 2 WEEKS Meaningful Use Info Meaningful Use Meaningful Use Diagnoses (Choose all that apply): None applicable Ischemic Stroke Statin Dosing Therapy Reference: STATIN DOSE THERAPY REFERENCE: * Patients > 75 years receive moderate or high dose statin therapy. * Patients 75 years or YOUNGER should receive HIGH intensity statin dose unless contraindicated. You will be required to document reason for non-treatment if statin daily dose does not meet guidelines. HIGH DOSE STATIN THERAPY DAILY Atorvastatin > than or = to 40 mg Rosuvastatin > than or = to 20 mg Amlodipine + Atorvastatin > than or = to 2.5/40 mg Ezetimibe + Simvastatin 10/80 mg Simvastatin 80mg Discharge Plan Admission Admit Date/Time: 05/25/24 08:53 Primary Reason for Your Visit: Altered mental status, acute kidney injury Attending Provider: Rc Landin Primary Care Provider: Keren Bustamante Consulting Providers: Iban Betancourt Discharge Orders/Prescriptions Prescriptions: New tizanidine 2 mg Tablet 2 mg PO Q6H PRN PRN (Reason: SPASMS) Qty: 0 0RF sennosides-docusate sodium [Stimulant Laxative Plus] 8.6-50 mg Tablet 2 tab PO BID Qty: 0 0RF Rx Instructions: [id number] Continued metaxalone 800 mg tablet 400 - 800 mg PO TID PRN (Reason: muscle spasm) Folbee 2.5-25-1 mg tablet 1 tab PO DAILY Patient Comments: TAKE 1 TABLET BY MOUTH ONCE DAILY cholecalciferol (vitamin D3) [Vitamin D3] 50 mcg (2,000 unit) tablet 2,000 unit PO DAILY Patient Comments: TAKE 1 TABLET BY MOUTH ONCE DAILY oxycodone-acetaminophen 7.5-325 mg tablet 1 tab PO BID PRN (Reason: Pain) Patient Comments: TAKE 1 TABLET BY MOUTH THREE TIMES DAILY NEEDED prednisone 5 mg tablet 5 mg PO DAILY PRN (Reason: RHEUMATOID ARTHRITIS FLARE) Patient Comments: TAKE 1 TABLET BY MOUTH ONCE DAILY NEEDED FOR RHEUMATOID ARTHRITIS FLARE ondansetron 4 mg tablet,disintegrating 4 mg PO Q6H PRN (Reason: nausea and vomiting) Qty: 15 0RF hydroxychloroquine 200 mg tablet 200 mg PO BID paroxetine HCl 30 mg tablet 30 mg PO DAILY potassium chloride 10 mEq capsule, extended release 10 meq PO DAILY Qty: 90 3RF carvedilol 6.25 mg tablet 6.25 mg PO BID Qty: 180 3RF Rx Instructions: Take 1 tablet, twice daily. atorvastatin 40 mg tablet 40 mg PO DAILY Qty: 90 3RF Eliquis 5 mg tablet 5 mg PO BID Qty: 60 11RF Changed tizanidine 4 mg tablet 2 mg PO Q8H PRN (Reason: Spasms) 3 Days Qty: 0 0RF gabapentin 800 mg tablet 400 mg PO BID 30 Days Qty: 0 0RF esomeprazole magnesium 40 MG capsule 40 mg PO DAILY 30 Days Qty: 0 0RF morphine 15 mg tablet extended release 15 mg PO BID 3 Days Qty: 0 0RF hydroxyzine pamoate 25 mg capsule 25 mg PO TID PRN 30 Days Qty: 0 0RF Held metformin 500 mg tablet extended release 24 hr 500 mg PO DAILY Hold Instructions: Hold for 3 days. lisinopril 5 mg tablet 5 mg PO DAILY Qty: 90 3RF Hold Instructions: Resume 2.5 mg daily from tomorrow a.m. then titrate up in consultation with PCP. Referrals / Follow Up: Keren Bustamante MD [Primary Care Provider] - In 1 Week Disposition Disposition (needs filled in before D/C Order can be placed): Home, Self Care Charges/Coding Visit Charges Inpatient E&M: 59723 Disch Hosp >30min
--- NOTE | 2024-05-28 12:59 | CASEMGMT ---
Pt has an order for DC placed. At this time, awaiting Home oxygen qualification documentation. Dr. Landin notified. CM to follow.
--- NOTE | 2024-05-28 14:30 | CASEMGMT ---
Per the pt RN, pt is not discharging today d/t tachycardia and inconsistent oxygen saturation levels. CM to continue to follow.
--- NOTE | 2024-05-28 15:14 | PN.HOSP_ITS ---
Reason for Visit Reason for Visit: Diagnoses Sepsis, unspecified organism (05/25/24) Pneumonitis due to inhalation of food and vomit (05/25/24) Acute kidney failure, unspecified (05/25/24) Altered mental status, unspecified (05/25/24) Objective Data Objective Data Vital Signs: Vital Signs Temp Pulse Resp BP Pulse Ox O2 Del Method O2 Flow Rate 98 F 105 H 18 159/76 H 91 Nasal Cannula 2 05/28/24 02:42 05/28/24 02:42 05/28/24 02:42 05/28/24 02:42 05/28/24 08:10 05/28/24 10:20 05/28/24 10:20 FiO2 40 05/25/24 15:21 Oxygen Flow Rate (L/min) 2 Oxygen Delivery Method Nasal Cannula Weight: 178 lb 9.191 oz Body Mass Index (BMI) 32.6 Intake & Output: Intake and Output for Last 24 Hours 05/26/24 05/27/24 05/28/24 23:59 23:59 23:59 Intake Total 3690 / 3690 540 / 540 Output Total 1700 / 1800 1900 / 1900 1425 / 1425 Balance 1989 / 1890 -1360 / -1360 -1425 / -1425 Lab / Micro Data 05/28/24 08:18 05/28/24 08:18 Labs: Laboratory Results - last 24 hr 05/27/24 16:32: POC Glucose 106 05/28/24 08:18: WBC 10.3, RBC 2.77 L, Hgb 8.1 L, Hct 25.9 L, MCV 93.5, MCH 29.2, MCHC 31.3 L, RDW Std Deviation 41.6, RDW Coeff of Valdemar 12.2, Plt Count 179, MPV 8.1, Immature Gran % (Auto) 0.600, Neut % (Auto) 75.2 H, Lymph % (Auto) 9.9 L, M elida % (Auto) 13.8 H, Eos % (Auto) 0.4, Baso % (Auto) 0.1, Absolute Neuts (auto) 7.7, Absolute Lymphs (auto) 1.02, Nucleated RBC % 0, Sodium 138, Potassium 3.0 L , Chloride 102, Carbon Dioxide 29.0, Anion Gap 8, BUN 11, Creatinine 0.64, Estim Creat Clear Calc 91.02, Est GFR (MDRD) Af Amer 121, Est GFR (MDRD) Non-Af 100, BUN/Creatinine Ratio 17.1, Glucose 107 H, Calcium 8.7 05/28/24 08:34: POC Glucose 105 05/28/24 12:05: POC Glucose 136 H Micro: Microbiology 05/25/24 11:45 Urine Catheter - Catheter Urine Culture - Final Culture exhibits no growth. 05/25/24 11:45 Urine Catheter - Catheter Legionella Antigen - Final 05/25/24 11:45 Urine Catheter - Catheter Streptococcus pneumoniae Antigen (M - Final 05/25/24 08:50 Blood Culture (Wb) - Anticubital Left Blood Culture - Preliminary No growth in 48 hours. 05/25/24 09:13 Blood Culture (Wb) - Anticubital Left Blood Culture - Preliminary No growth in 48 hours. 05/26/24 22:15 Stool Enteric Bacteriology - Final 05/26/24 22:15 Stool Clostridioides difficile (PCR) - Final 05/25/24 11:26 Mucosa - Nasopharyngeal Respiratory Panel (PCR) - Final 05/25/24 11:26 Mucosa - Nose Coronavirus COVID-19 PCR - Final 05/25/24 07:30 Mucosa - Nose SARS-CoV-2, Influenza & RSV (PCR) - Final Physical Exam Narrative Seen and examined Patient is alert awake oriented x 3. On room air. Has history of anxiety and depression and chronic pain syndrome. Discontinue Abraham catheter. The patient wanted to go home. On home oxygen qualification, patient heart rate went up to 175 to 180/min. On the vital signs charted on EMR, it does not reflect Physical exam: General: Alert, Oriented x3, Cooperative HEENT: Atraumatic, PERRLA, EOMI, Normocephalic Oral: No Gingival or Mucosal Lesions/ Ulcerations Neck: Supple, No JVD, Negative Carotid Bruits Chest wall/Lungs: Air entry diminished in bilateral lung bases. No crepitation/rhonchi Cardiovascular: Sinus tachycardia on walking normal S1, Normal S2, No M/G/R Abdomen: Bowel Sounds Present, Soft, Non Tender, Non-Distended : No dysuria. Abraham catheter. No renal angle tenderness. No suprapubic tenderness. Extremities: No edema, Capillary Refill Less than 3 Seconds Skin: No rashes, No breakdown Musculoskeletal: No Tenderness to Palpation of Joints or Extremities Neurological: Cranial nerves II-XII grossly intact, DTR 2+/4. No acute focal neurological deficit. Psych/Mental Status: Normal Affect, Appropriate. Assessment & Plan Assessment/Plan (1) Aspiration pneumonitis: (2) Sepsis: (3) Acute kidney injury: PLAN: Plan Patient is a 63-year-old lady presented with altered mental status. An assessment of septic shock secondary to aspiration pneumonia was made. Patient was also found to have acute kidney injury with hyperkalemia admitted to the intensive care unit for further management 1. Sepsis was ruled out. ? Secondary to aspiration pneumonia. Patient has been admitted to the intensive care unit IV fluid resuscitation?30 mL/kg was initiated from the ED if patient does not respond to IV fluids patient will be started on Levophed in the meantime blood cultures were drawn from the ED and patient started on broad- spectrum antibiotic therapy per protocol ? Patient blood pressure did respond to IV fluid resuscitation and did not require pressors. Plan is for patient to be moved from the ICU to progressive care unit 05/27: Initially there was concern of sepsis but patient was dehydrated with hypovolemia, QUENTIN and altered mental status probably from polypharmacy with multiple sedating/tranquilizer medications such as gabapentin, morphine and hydroxyzine. Chest x-ray looked more basilar atelectasis rather than pneumonia. Infectious workup is negative therefore sepsis is ruled out and antibiotic discontinued 05/28: Sepsis was ruled out. When patient tries to walk, his heart rate goes up rapidly sinus node hyperreactive or exercise intolerance. Started on metoprolol. Patient asking for discharge that he did not get discharged she will sign AMA. Discussed with staff nurse, cannot formally discharge with the discharge instruction 2. Acute kidney injury ? Suspected to be secondary to ATN from patient septic shock patient started on IV fluid with subsequent monitoring of electrolytes Abraham catheter was ordered to be placed for accurate I's and O's. ? 05/26/2024; patient creatinine down to 0.95 05/27: QUENTIN resolved. Creatinine 0.42. 3. Hyperkalemia ? Secondary to QUENTIN did order dextrose bicarb and calcium gluconate repeat labs ordered for 1500 ? 05/26/2024; patient potassium down to 4.6 4. Anemia ? Secondary to chronic disorder monitoring H&H and transfuse if patient becomes symptomatic or hemoglobin falls below 7 ? Patient hemoglobin down to 7.7 however no indication for blood transfusion at this 05/18 and H&H 7.7/24%. Platelet count 164K 5. Diabetes mellitus type II -patient's oral hypoglycemics held. Placed on Accu-Cheks a.c. and at bedtime and covered with sliding scale insulin 6. Dyslipidemia ? Patient is on atorvastatin plan is to resume when patient level of sensorium improves 7. GERD ? Patient is on PPI patient started on IV Protonix 8. Paroxysmal atrial fibrillation Patient is on carvedilol which has been held given patient relatively low blood pressure patient is on systemic anticoagulation with apixaban plan is to continue 9. Rheumatoid arthritis ? Patient is on methotrexate q. weekly as well as hydroxychloroquine plan is to resume when patient level of sensorium improves 4. Chronic pain syndrome ? Patient is on gabapentin held given patient altered mental status 11. Depression with anxiety ? Patient is on paroxetine will resume when patient level of sensorium improves Patient was also admitted with altered mental status, confused, acute encephalopathy probably related to polypharmacy. Patient on multiple medications including gabapentin, hydroxyzine, oxycodone, paroxetine, and tizanidine which can cause altered mental status. Advised about the polypharmacy. The dosages of gabapentin, tizanidine and frequency of morphine was decreased. 12. DVT prophylaxis ? Patient is on apixaban Discharge medication reconciliation done. Discharge follow-up instructions completed. Discharge process discussed with the patient and all questions were answered to patient's satisfaction. Follow with PCP in 1 to 2 weeks Total time spent, exact 35 minutes on discharge meds reconciliation, examination, coordination of care with nurses and ancillary staff, review of imaging and blood test and discussion with the patient on follow-up instructions. Charges/Coding Visit Charges Inpatient E&M: 82415 Subs Hosp L2
[2024-05-28 16:28] VITALS: O2SAT 93
[2024-05-28 16:36] LABS: Bedside Glucose 78 mg/dL (74-106)
[2024-05-28] MEDS: tiZANidine HCl 2 MG Tablet PO (16:50)
[2024-05-28] MEDS: Acetaminophen 325 MG Tablet 650 MG PO (16:50)
[2024-05-28 19:57] VITALS: O2SAT 91
--- NOTE | 2024-05-28 20:50 | CPS ---
Patient refused PAP therapy for night time use.
[2024-05-28 21:01] VITALS: BP 114/86; PULSE 89; RESP 18; TEMP 36.8; O2SAT 94
[2024-05-28] MEDS: Senna/Docusate Sodium 1 Tablet 2 TABLET PO (21:09)
[2024-05-29] MEDS: Acetaminophen 325 MG Tablet 650 MG PO (01:09)
[2024-05-29 03:30] VITALS: BP 159/60; PULSE 93; RESP 16; TEMP 36.9; O2SAT 94
[2024-05-29 05:39] VITALS: BMI 32.5
[2024-05-29 08:15] VITALS: BP 147/83; PULSE 92; RESP 18; TEMP 36.2; O2SAT 96
[2024-05-29] MEDS: Atorvastatin Calcium 40 MG Tablet PO (08:18)
[2024-05-29] MEDS: Carvedilol 12.5 MG Tablet PO (08:18)
[2024-05-29] MEDS: APIXABAN 5 MG TABLET PO (08:18)
--- NOTE | 2024-05-29 08:35 | DCINST_ITS ---
Discharge Instructions Diet Discharge Diet: Low fat / Low cholesterol, 1800 Calorie Control Diet and 2000 mg Sodium Diet DC O2, CPAP, BIPAP needs Home O2 Discharge instructions: No Dressing / Incision Discharge Activity: Return to Normal Activity Weight Bearing Status: Weight bearing as tolerated Dressing / Incision Call your doctor if you observe: Fever of 101 or Higher, Coldness, Increased Pain, Numbness or Tingling, Change in Color, Inability to urinate, Inability to have a bowel movement, Using more than 1 pad per hour, Shortness of breath, Dizz iness, Fainting spells, Swelling in the ankles, Chest pain, Prolonged hiccupping, Increased palpitations (irregular heartbeat) and Calf discomfort Follow Up Care When: IN 2 WEEKS Test Results: Test results from this visit will be discussed in further detail at your follow- up appointment, if applicable. Discharge Plan Admission Admit Date/Time: 05/25/24 08:53 Primary Reason for Your Visit: Altered mental status, acute kidney injury Attending Provider: Rc Landin Primary Care Provider: Keren Bustamante Consulting Providers: Iban Betancourt Discharge Orders/Prescriptions Prescriptions: New tizanidine 2 mg Tablet 2 mg PO Q6H PRN PRN (Reason: SPASMS) Qty: 0 0RF sennosides-docusate sodium [Stimulant Laxative Plus] 8.6-50 mg Tablet 2 tab PO BID Qty: 0 0RF Rx Instructions: Uicn-vju-nlzemmo Continued metaxalone 800 mg tablet 400 - 800 mg PO TID PRN (Reason: muscle spasm) Folbee 2.5-25-1 mg tablet 1 tab PO DAILY Patient Comments: TAKE 1 TABLET BY MOUTH ONCE DAILY cholecalciferol (vitamin D3) [Vitamin D3] 50 mcg (2,000 unit) tablet 2,000 unit PO DAILY Patient Comments: TAKE 1 TABLET BY MOUTH ONCE DAILY oxycodone-acetaminophen 7.5-325 mg tablet 1 tab PO BID PRN (Reason: Pain) Patient Comments: TAKE 1 TABLET BY MOUTH THREE TIMES DAILY NEEDED prednisone 5 mg tablet 5 mg PO DAILY PRN (Reason: RHEUMATOID ARTHRITIS FLARE) Patient Comments: TAKE 1 TABLET BY MOUTH ONCE DAILY NEEDED FOR RHEUMATOID ARTHRITIS FLARE ondansetron 4 mg tablet,disintegrating 4 mg PO Q6H PRN (Reason: nausea and vomiting) Qty: 15 0RF hydroxychloroquine 200 mg tablet 200 mg PO BID paroxetine HCl 30 mg tablet 30 mg PO DAILY potassium chloride 10 mEq capsule, extended release 10 meq PO DAILY Qty: 90 3RF carvedilol 6.25 mg tablet 6.25 mg PO BID Qty: 180 3RF Rx Instructions: Take 1 tablet, twice daily. atorvastatin 40 mg tablet 40 mg PO DAILY Qty: 90 3RF Eliquis 5 mg tablet 5 mg PO BID Qty: 60 11RF Changed tizanidine 4 mg tablet 2 mg PO Q8H PRN (Reason: Spasms) 3 Days Qty: 0 0RF gabapentin 800 mg tablet 400 mg PO BID 30 Days Qty: 0 0RF esomeprazole magnesium 40 MG capsule 40 mg PO DAILY 30 Days Qty: 0 0RF morphine 15 mg tablet extended release 15 mg PO BID 3 Days Qty: 0 0RF hydroxyzine pamoate 25 mg capsule 25 mg PO TID PRN 30 Days Qty: 0 0RF Held metformin 500 mg tablet extended release 24 hr 500 mg PO DAILY Hold Instructions: Hold for 3 days. lisinopril 5 mg tablet 5 mg PO DAILY Qty: 90 3RF Hold Instructions: Resume 2.5 mg daily from tomorrow a.m. then titrate up in consultation with PCP. Referrals / Follow Up: Keren Bustamante MD [Primary Care Provider] - In 1 Week Disposition Disposition (needs filled in before D/C Order can be placed): Home, Self Care
[2024-05-29] MEDS: Gabapentin 400 MG Capsule PO (09:33)
[2024-05-29] MEDS: Potassium Chloride Oral Tablet 20 MEQ 40 MEQ PO ×2 (09:33→11:30)
[2024-05-29] MEDS: morphine SR 15 MG Tablet PO (09:33)
[2024-05-29] MEDS: Hydroxychloroquine 200 MG Tablet PO (09:34)
[2024-05-29] MEDS: PARoxetine 10 MG Tablet 30 MG PO (09:34)
[2024-05-29] MEDS: Pantoprazole Sodium 40 MG Tablet PO (09:35)
--- NOTE | 2024-05-29 10:26 | CASEMGMT ---
Pt has a DC order placed by Dr. Landin. At this time, awaiting RN O2 home qualification documentation. Will follow.
[2024-05-29 11:50] LABS: Bedside Glucose 97 mg/dL (74-106)
[2024-05-29 12:26] VITALS: O2SAT 93; O2SAT 95
--- NOTE | 2024-05-29 12:35 | CASEMGMT ---
Per the RN home oxygen testing, pt does not qualify for home oxygen. TC to [facility] and [facility] notified that pt will be discharging today and that the pt did not qualify for home oxygen.
[2024-05-29 14:19] VITALS: BP 131/84; PULSE 82; RESP 17; TEMP 36.8; O2SAT 94
--- NOTE | 2024-05-29 14:21 | DS.PCM_ITS ---
Providers Date of Admission: 05/25/24 Date of Discharge: 05/29/24 Primary Care Physician: Dr. Keren Bustamante MD Consultations 05/25/24 10:34 Consult: Complex Director / Pulmonary Medicine Routine Consulting Provider: Intensivists/Pulmonary Med Reason for Consult: sepsis EMERGENT Consult: No MD Notified: Yes Date Notified: 05/25/24 Time Notified: 09:23 Method of Notification: Text Reason For Visit: SEPSIS Diagnosis Discharge Diagnosis (1) Aspiration pneumonitis: Status: Acute Code(s): J69.0 - Pneumonitis due to inhalation of food and vomit (2) Sepsis: Status: Acute Code(s): A41.9 - Sepsis, unspecified organism (3) Acute kidney injury: Status: Acute Code(s): N17.9 - Acute kidney failure, unspecified Plan Patient is a 63-year-old lady presented with altered mental status. An assessment of septic shock secondary to aspiration pneumonia was made. Patient was also found to have acute kidney injury with hyperkalemia admitted to the intensive care unit for further management 1. Sepsis was ruled out. ? Secondary to aspiration pneumonia. Patient has been admitted to the intensive care unit IV fluid resuscitation?30 mL/kg was initiated from the ED if patient does not respond to IV fluids patient will be started on Levophed in the meantime blood cultures were drawn from the ED and patient started on broad- spectrum antibiotic therapy per protocol ? Patient blood pressure did respond to IV fluid resuscitation and did not require pressors. Plan is for patient to be moved from the ICU to progressive care unit 05/27: Initially there was concern of sepsis but patient was dehydrated with hypovolemia, QUENTIN and altered mental status probably from polypharmacy with multiple sedating/tranquilizer medications such as gabapentin, morphine and hydroxyzine. Chest x-ray looked more basilar atelectasis rather than pneumonia. Infectious workup is negative therefore sepsis is ruled out and antibiotic discontinued 05/28: Sepsis was ruled out. When patient tries to walk, his heart rate goes up rapidly sinus node hyperreactive or exercise intolerance. Started on metoprolol. Patient asking for discharge that he did not get discharged she will sign AMA. Discussed with staff nurse, cannot formally discharge with the discharge instruction 2. Acute kidney injury ? Suspected to be secondary to ATN from patient septic shock patient started on IV fluid with subsequent monitoring of electrolytes Abraham catheter was ordered to be placed for accurate I's and O's. ? 05/26/2024; patient creatinine down to 0.95 05/27: QUENTIN resolved. Creatinine 0.42. 3. Hyperkalemia ? Secondary to QUENTIN did order dextrose bicarb and calcium gluconate repeat labs ordered for 1500 ? 05/26/2024; patient potassium down to 4.6 4. Anemia ? Secondary to chronic disorder monitoring H&H and transfuse if patient becomes symptomatic or hemoglobin falls below 7 ? Patient hemoglobin down to 7.7 however no indication for blood transfusion at this 05/18 and H&H 7.7/24%. Platelet count 164K 5. Diabetes mellitus type II -patient's oral hypoglycemics held. Placed on Accu-Cheks a.c. and at bedtime and covered with sliding scale insulin 6. Dyslipidemia ? Patient is on atorvastatin plan is to resume when patient level of sensorium improves 7. GERD ? Patient is on PPI patient started on IV Protonix 8. Paroxysmal atrial fibrillation Patient is on carvedilol which has been held given patient relatively low blood pressure patient is on systemic anticoagulation with apixaban plan is to continue 05/29: Patient heart rate is better controlled 82 100. Blood pressure 131/84. I discussed with the telecommunications linesworker Dr. Cruz. We agreed about increasing the carvedilol 12.5 mg twice daily. It might take 2 to 3 days for heart rate to get controlled. She has exercise/exertion-induced tachycardia probably due to physically deconditioned. Follow-up in the cardiology office 9. Rheumatoid arthritis ? Patient is on methotrexate q. weekly as well as hydroxychloroquine plan is to resume when patient level of sensorium improves 4. Chronic pain syndrome ? Patient is on gabapentin held given patient altered mental status 11. Depression with anxiety ? Patient is on paroxetine will resume when patient level of sensorium improves Patient was also admitted with altered mental status, confused, acute encephalopathy probably related to polypharmacy. Patient on multiple medications including gabapentin, hydroxyzine, oxycodone, paroxetine, and tizanidine which can cause altered mental status. Advised about the polypharmacy. The dosages of gabapentin, tizanidine and frequency of morphine was decreased. 12. DVT prophylaxis ? Patient is on apixaban Discharge medication reconciliation done. Discharge follow-up instructions completed. Discharge process discussed with the patient and all questions were answered to patient's satisfaction. Follow with PCP in 1 to 2 weeks Total time spent, exact 35 minutes on discharge meds reconciliation, examination, coordination of care with nurses and ancillary staff, review of imaging and blood test and discussion with the patient on follow-up instructions. Medications at Discharge Home Medications cholecalciferol (vitamin D3) 50 mcg (2,000 unit) tablet (Vitamin D3) 2,000 unit PO DAILY vitamin 12/14/20 folic acid-vit B6-vit B12 2.5 mg-25 mg-1 mg tablet (Folbee) 1 tab PO DAILY supplement 12/14/20 oxycodone-acetaminophen 7.5 mg-325 mg tablet 1 tab PO BID PRN Pain 12/16/20 prednisone 5 mg tablet 5 mg PO DAILY PRN RHEUMATOID ARTHRITIS FLARE 12/16/20 lisinopril 5 mg tablet 5 mg PO DAILY bp #90 tabs 01/08/22 Held on 05/28/24. Instructions: Resume 2.5 mg daily from tomorrow a.m. then titrate up in consultation with PCP. potassium chloride 10 mEq capsule,extended release 10 meq PO DAILY supplement #90 caps 01/08/22 metaxalone 800 mg tablet 400 - 800 mg PO TID PRN muscle spasm 07/17/23 ondansetron 4 mg disintegrating tablet 4 mg PO Q6H PRN nausea and vomiting #15 tabs 07/22/23 atorvastatin 40 mg tablet 40 mg PO DAILY cholesterol #90 tabs 09/09/23 apixaban 5 mg tablet (Eliquis) 5 mg PO BID afib #60 tabs 01/21/24 hydroxychloroquine 200 mg tablet 200 mg PO BID itching 04/06/24 metformin 500 mg tablet,extended release 24 hr 500 mg PO DAILY diabetes 04/06/24 Held on 05/28/24. Instructions: Hold for 3 days. paroxetine HCl 30 mg tablet 30 mg PO DAILY depression 04/06/24 esomeprazole magnesium 40 mg capsule,delayed release 40 mg PO DAILY reflux 30 days #0 caps 05/28/24 gabapentin 800 mg tablet 400 mg (1/2 x 800 mg) PO BID nueropathy 30 days #0 tabs 05/28/24 hydroxyzine pamoate 25 mg capsule 25 mg PO TID PRN anxiety 30 days #0 caps 05/28/24 morphine 15 mg tablet,extended release 15 mg PO BID pain 3 days #0 tabs 05/28/24 sennosides 8.6 mg-docusate sodium 50 mg tablet (Stimulant Laxative Plus) 2 tab PO BID #0 tabs 05/28/24 tizanidine 2 mg tablet 2 mg PO Q6H PRN PRN SPASMS #0 tabs 05/28/24 tizanidine 4 mg tablet 2 mg (1/2 x 4 mg) PO Q8H PRN Spasms 3 days #0 tabs 05/28/24 carvedilol 12.5 mg tablet 12.5 mg PO BID 1 month #60 tabs 05/29/24 Physical Exam Narrative Seen and examined Patient is alert awake oriented x 3. On room air. Has history of anxiety and depression and chronic pain syndrome. Abraham catheter Heart rate is controlled. Physical exam: General: Alert, Oriented x3, Cooperative HEENT: Atraumatic, PERRLA, EOMI, Normocephalic Oral: No Gingival or Mucosal Lesions/ Ulcerations Neck: Supple, No JVD, Negative Carotid Bruits Chest wall/Lungs: Air entry diminished in bilateral lung bases. No crepitation/rhonchi Cardiovascular: Sinus tachycardia on walking normal S1, Normal S2, No M/G/R Abdomen: Bowel Sounds Present, Soft, Non Tender, Non-Distended : No dysuria. No renal angle tenderness. No suprapubic tenderness. Extremities: No edema, Capillary Refill Less than 3 Seconds Skin: No rashes, No breakdown Musculoskeletal: No Tenderness to Palpation of Joints or Extremities Neurological: Cranial nerves II-XII grossly intact, DTR 2+/4. No acute focal neurological deficit. Psych/Mental Status: Normal Affect, Appropriate. Weight / BMI Weight Weight: 177 lb 11.081 oz Body Mass Index (BMI) 32.5 ABG / Lab / Microbiology Data 05/28/24 08:18 05/28/24 08:18 Laboratory: Laboratory Results - last 24 hr 05/28/24 16:09: POC Glucose 78 05/29/24 11:29: POC Glucose 97 Microbiology: Microbiology 05/25/24 11:45 Urine Catheter - Catheter Urine Culture - Final Culture exhibits no growth. 05/25/24 11:45 Urine Catheter - Catheter Legionella Antigen - Final 05/25/24 11:45 Urine Catheter - Catheter Streptococcus pneumoniae Antigen (M - Final 05/25/24 08:50 Blood Culture (Wb) - Anticubital Left Blood Culture - Preliminary No growth in 48 hours. 05/25/24 09:13 Blood Culture (Wb) - Anticubital Left Blood Culture - Preliminary No growth in 48 hours. 05/26/24 22:15 Stool Enteric Bacteriology - Final 05/26/24 22:15 Stool Clostridioides difficile (PCR) - Final 05/25/24 11:26 Mucosa - Nasopharyngeal Respiratory Panel (PCR) - Final 05/25/24 11:26 Mucosa - Nose Coronavirus COVID-19 PCR - Final 05/25/24 07:30 Mucosa - Nose SARS-CoV-2, Influenza & RSV (PCR) - Final D/C Instructions Discharge Diet: Low fat / Low cholesterol, 1800 Calorie Control Diet and 2000 mg Sodium Diet Weight Bearing Status: Weight bearing as tolerated Call your doctor if you observe: Fever of 101 or Higher, Coldness, Increased Pain, Numbness or Tingling, Change in Color, Inability to urinate, Inability to have a bowel movement, Using more than 1 pad per hour, Shortness of breath, Dizziness, Fainting spells, Swelling in the ankles, Chest pain, Prolonged hiccupping, Increased palpitations (irregular heartbeat) and Calf discomfort DC O2, CPAP, BIPAP Needs RN Home O2 Qualification: Home O2 Qualification: Is the patient on home oxygen No 05/29/24 12:26 Home O2 Qualification: AT REST 1- Pulse Ox at rest 95 05/29/24 12:26 Home O2 Qualification: WITH AMBULATION 1- Pulse Ox with ambulation 93 05/29/24 12:26 1- Oxygen Flow Rate with 0 05/29/24 12:26 ambulation PSN CPAP & BiPAP: BiPAP & CPAP Settings per PSN Mode BiPAP 05/27/24 11:59 Bipap Delivery Device Face Mask 05/25/24 15:21 BiPAP Inspiratory Pressure 14 05/25/24 15:21 BiPAP Expiratory Pressure 8 05/25/24 15:21 BiPAP Rate 12 05/25/24 15:21 Fraction of Inspired Oxygen ( 40 05/25/24 15:21 FIO2) Home O2 Discharge instructions: No When: IN 2 WEEKS Meaningful Use Info Meaningful Use Meaningful Use Diagnoses (Choose all that apply): None applicable Ischemic Stroke Statin Dosing Therapy Reference: STATIN DOSE THERAPY REFERENCE: * Patients > 75 years receive moderate or high dose statin therapy. * Patients 75 years or YOUNGER should receive HIGH intensity statin dose unless contraindicated. You will be required to document reason for non-treatment if statin daily dose does not meet guidelines. HIGH DOSE STATIN THERAPY DAILY Atorvastatin > than or = to 40 mg Rosuvastatin > than or = to 20 mg Amlodipine + Atorvastatin > than or = to 2.5/40 mg Ezetimibe + Simvastatin 10/80 mg Simvastatin 80mg Discharge Plan Admission Admit Date/Time: 05/25/24 08:53 Primary Reason for Your Visit: Altered mental status, acute kidney injury Attending Provider: Rc Landin Primary Care Provider: Keren Bustamante Consulting Providers: Iban Betancourt Discharge Orders/Prescriptions Prescriptions: New tizanidine 2 mg Tablet 2 mg PO Q6H PRN PRN (Reason: SPASMS) Qty: 0 0RF sennosides-docusate sodium [Stimulant Laxative Plus] 8.6-50 mg Tablet 2 tab PO BID Qty: 0 0RF Rx Instructions: Vnhd-bud-gphbrcw carvedilol 12.5 mg tablet 12.5 mg PO BID 30 Days Qty: 60 2RF Rx Instructions: must administer with a meal/food Continued metaxalone 800 mg tablet 400 - 800 mg PO TID PRN (Reason: muscle spasm) Folbee 2.5-25-1 mg tablet 1 tab PO DAILY Patient Comments: TAKE 1 TABLET BY MOUTH ONCE DAILY cholecalciferol (vitamin D3) [Vitamin D3] 50 mcg (2,000 unit) tablet 2,000 unit PO DAILY Patient Comments: TAKE 1 TABLET BY MOUTH ONCE DAILY oxycodone-acetaminophen 7.5-325 mg tablet 1 tab PO BID PRN (Reason: Pain) Patient Comments: TAKE 1 TABLET BY MOUTH THREE TIMES DAILY NEEDED prednisone 5 mg tablet 5 mg PO DAILY PRN (Reason: RHEUMATOID ARTHRITIS FLARE) Patient Comments: TAKE 1 TABLET BY MOUTH ONCE DAILY NEEDED FOR RHEUMATOID ARTHRITIS FLARE ondansetron 4 mg tablet,disintegrating 4 mg PO Q6H PRN (Reason: nausea and vomiting) Qty: 15 0RF hydroxychloroquine 200 mg tablet 200 mg PO BID paroxetine HCl 30 mg tablet 30 mg PO DAILY potassium chloride 10 mEq capsule, extended release 10 meq PO DAILY Qty: 90 3RF atorvastatin 40 mg tablet 40 mg PO DAILY Qty: 90 3RF Eliquis 5 mg tablet 5 mg PO BID Qty: 60 11RF Changed tizanidine 4 mg tablet 2 mg PO Q8H PRN (Reason: Spasms) 3 Days Qty: 0 0RF gabapentin 800 mg tablet 400 mg PO BID 30 Days Qty: 0 0RF esomeprazole magnesium 40 MG capsule 40 mg PO DAILY 30 Days Qty: 0 0RF morphine 15 mg tablet extended release 15 mg PO BID 3 Days Qty: 0 0RF hydroxyzine pamoate 25 mg capsule 25 mg PO TID PRN 30 Days Qty: 0 0RF Held metformin 500 mg tablet extended release 24 hr 500 mg PO DAILY Hold Instructions: Hold for 3 days. lisinopril 5 mg tablet 5 mg PO DAILY Qty: 90 3RF Hold Instructions: Resume 2.5 mg daily from tomorrow a.m. then titrate up in consultation with PCP. Discontinued carvedilol 6.25 mg tablet 6.25 mg PO BID Qty: 180 3RF Rx Instructions: Take 1 tablet, twice daily. Referrals / Follow Up: craig foreman [Other] - Within 2 Weeks (Exertion/exercise induced tachycardia) Keren Bustamante MD [Primary Care Provider] - In 1 Week Disposition Disposition (needs filled in before D/C Order can be placed): Home, Self Care Charges/Coding Visit Charges Inpatient E&M: 72831 Disch Hosp >30min
== END 2024-05-29 14:22 | disposition home or self-care (01) | DRG 177 ==
LOC: ED 09:02 → ICU 09:12
PROVIDERS: Internal Medicine Critical Care Medicine; Admitting Provider Internal Medicine; Emergency Provider Emergency Medicine; PCP Internal Medicine; Visit Provider Internal Medicine
DX: J69.0 Pneumonitis due to inhalation of food and vomit (principal); G92.8 Other toxic encephalopathy; N17.9 Acute kidney failure, unspecified; D63.8 Anemia in other chronic diseases classified elsewhere; E11.40 Type 2 diabetes mellitus with diabetic neuropathy, unspecified; M06.9 Rheumatoid arthritis, unspecified; F32.A Depression, unspecified; I48.0 Paroxysmal atrial fibrillation; E78.5 Hyperlipidemia, unspecified; K21.9 Gastro-esophageal reflux disease without esophagitis; E87.5 Hyperkalemia; I25.10 Atherosclerotic heart disease of native coronary artery without angina pectoris; F41.9 Anxiety disorder, unspecified; G89.4 Chronic pain syndrome; Z79.01 Long term (current) use of anticoagulants; Z79.84 Long term (current) use of oral hypoglycemic drugs; Z87.891 Personal history of nicotine dependence; Z79.52 Long term (current) use of systemic steroids; Z79.899 Other long term (current) drug therapy
CPT/HCPCS: 36569; 36600; 51702; 70450; 71045; 80048; 80053; 80202; 81001; 82803; 82962; 83036; 83605; 83735; 84100; 85025; 87040; 87086; 87449; 87493; 87506; 87631; 87633; 87635; 93005; 94002; 94640; 94762; 97162; 97166; 97530; 97535; 97802; 97803; 99285; A4216; J0295; J2405

== ENCOUNTER 2024-07-09 14:06 | Inpatient (IN) | payer MEDICARE, MEDICAID, SELFPAY ==
[2021-03-31 10:10] VITALS: BMI 34.4
[2024-07-09] VITALS (13 sets, daily range): BP systolic 68–99; BP diastolic 41–75; PULSE 62–89; RESP 16–24; TEMP 36.5–37; O2SAT 86–100; BMI 29.7; BMI 32.4
--- NOTE | 2024-07-09 14:28 | EKG12_ITS ---
Test Reason : Blood Pressure : */* mmHG Vent. Rate : 88 BPM Atrial Rate : 88 BPM P-R Int : 146 ms QRS Dur : 76 ms QT Int : 392 ms P-R-T Axes : 26 6 15 degrees QTcB Int : 474 ms Normal sinus rhythm Normal ECG Confirmed by TSERING WOLFE, THEODORE ([id number]), editor managing newspaper SHIREEN HORTON ([id number]) on 07/13/2024 10:57:38 AM Referred By: Randall Hargrove Confirmed By: THEODORE CAGLE MD
--- NOTE | 2024-07-09 14:29 | EX.ED.DYSGE1 ---
HPI History of Present Illness Chief Complaint: Confusion Informant: patient and friend Narrative Narrative: Patient brought in by her friend after therapy convinced her today. Per friend patient been more confused last couple days. Patient gets around by wheelchair can use a walker but prefers her wheelchair. Yesterday states her leg gave out fell hitting her head. Headache. She is on Eliquis for history of paroxysmal A-fib. No neck chest or back pain. Denies cough. Denies vomiting or diarrhea. Denies urinary symptoms. Blood pressure low coming in 75/41 she reports intermittent lightheaded symptoms. She states she had a slight heart attack in the past with a heart cath. No stents. She denies taking any extra blood pressure medicine states the nurse placed him out. Denies fever chills or sweats. Typical blood pressure systolic 105 per patient. [facility] Medical History History of left heart catheterization (LHC) (~11/22/21) Atherosclerotic heart disease of [place] coronary artery without angina pectoris Abnormal stress test Decreased left ventricular function Essential hypertension Hyperlipidemia Former smoker Acute coronary syndrome Injury of fifth cervical spinal cord Spinal cord stimulator status Chronic pain Arthritis Depression GERD (gastroesophageal reflux disease) Insomnia Neuropathic pain Rheumatoid arthritis Morbid obesity Debility Home Medications ?Medication ?Instructions ?Recorded ?Last Taken ?Type cholecalciferol (vitamin D3) 50 2,000 unit PO DAILY vitamin 12/14/20 07/09/24 History mcg (2,000 unit) tablet (Vitamin D3) folic acid-vit B6-vit B12 2.5 1 tab PO DAILY supplement 12/14/20 12/14/20 09:00 History mg-25 mg-1 mg tablet (Folbee) oxycodone-acetaminophen 7.5 mg-325 1 tab PO BID PRN Pain 12/16/20 Unknown History mg tablet prednisone 5 mg tablet 5 mg PO DAILY PRN RHEUMATOID 12/16/20 Unknown History ARTHRITIS FLARE lisinopril 5 mg tablet 5 mg PO DAILY bp #90 tabs 01/08/22 07/07/24 Rx potassium chloride 10 mEq 10 meq PO DAILY supplement #90 caps 01/08/22 07/09/24 Rx capsule,extended release metaxalone 800 mg tablet 400 - 800 mg PO TID PRN muscle 07/17/23 07/09/24 History spasm ondansetron 4 mg disintegrating 4 mg PO Q6H PRN nausea and 07/22/23 Unknown Rx tablet vomiting #15 tabs apixaban 5 mg tablet (Eliquis) 5 mg PO BID afib #60 tabs 01/21/24 07/09/24 Rx hydroxychloroquine 200 mg tablet 200 mg PO BID itching 04/06/24 07/09/24 History metformin 500 mg tablet,extended 500 mg PO DAILY diabetes 04/06/24 07/09/24 History release 24 hr paroxetine HCl 30 mg tablet 30 mg PO DAILY depression 04/06/24 Unknown History morphine 15 mg tablet,extended 15 mg PO BID pain 3 days #0 tabs 05/28/24 Unknown Rx release sennosides 8.6 mg-docusate sodium 2 tab PO BID #0 tabs 05/28/24 07/08/24 Rx 50 mg tablet (Stimulant Laxative Plus) tizanidine 2 mg tablet 2 mg PO Q6H PRN PRN SPASMS #0 tabs 05/28/24 07/06/24 Rx carvedilol 12.5 mg tablet 12.5 mg PO BID FOR HEART 1 month 05/29/24 07/09/24 Rx #60 tabs atorvastatin 40 mg tablet 40 mg PO QHS cholesterol 07/09/24 07/08/24 History esomeprazole magnesium 40 mg 40 mg PO BID reflux 07/09/24 07/09/24 History capsule,delayed release famotidine 20 mg tablet 20 mg PO QHS 07/09/24 07/08/24 History gabapentin 800 mg tablet 800 mg PO .COMPLEX nueropathy 07/09/24 07/09/24 History hydroxyzine pamoate 25 mg capsule 25 - 50 mg PO TID PRN anxiety 07/09/24 07/09/24 History methotrexate sodium 25 mg/mL 15 mg subcut WE 07/09/24 07/08/24 History injection solution omega-3 acid ethyl esters 1 gram 2 cap PO BID 07/09/24 Unknown History capsule triamcinolone acetonide 0.1 % 1 applic topical BID 07/09/24 Unknown History topical cream Allergy/AdvReac Type Severity Reaction Status Date / Time adhesive Allergy blisters Verified 07/09/24 14:18 codeine AdvReac Nausea Verified 07/09/24 14:18 Family History Father CAD (coronary artery disease) Other Heart disease Surgical History History of appendectomy Previous back surgery Social History household members: spouse housing: apartment Smoking Status: Former smoker ROS ROS ED Constitutional Constitutional ED: Denies chills, fever(s) or sweats ENT ENT ED: Denies sore throat Cardiovascular Cardiovascular: Denies chest pain, leg edema, palpitations or racing heartbeat Respiratory/Chest Respiratory/Chest: Denies cough, dyspnea or dyspnea on exertion Gastrointestinal Gastrointestinal: Denies abdominal pain, diarrhea, nausea or vomiting Genitourinary Genitourinary ED: Denies dysuria, hematuria or urinary frequency Musculoskeletal Musculoskeletal: Denies back pain, extremity pain or neck pain Integumentary Denies rash or wounds Neurologic Neurologic: Reports headache(s); Denies paresthesias or weakness EXAM Physical Exam Const Vital Signs: 07/09/24 14:08 07/09/24 15:05 07/09/24 15:15 Temperature 98.1 F Temperature Source Temporal Pulse Rate 88 89 Respiratory Rate 16 16 Blood Pressure 75/41 L 68/49 L Blood Pressure Mean 52 55 Pulse Ox 91 95 86 Oxygen Delivery Method Room Air Room Air Room Air Oxygen Flow Rate (L/min) 07/09/24 15:15 07/09/24 16:00 07/09/24 16:53 Temperature Temperature Source Pulse Rate 86 87 Respiratory Rate 20 H 20 H Blood Pressure 99/44 L 94/53 L Blood Pressure Mean 62 66 Pulse Ox 95 96 96 Oxygen Delivery Method Nasal Cannula Nasal Cannula Nasal Cannula Oxygen Flow Rate (L/min) 2 2 2 07/09/24 17:49 Temperature 98.6 F Temperature Source Pulse Rate 89 Respiratory Rate 19 H Blood Pressure 90/52 L Blood Pressure Mean 64 Pulse Ox 95 Oxygen Delivery Method Oxygen Flow Rate (L/min) Positive well nourished and well developed Constitutional Narrative: GCS 15. Talkative, nontoxic. General Appearance ED: well developed and NAD HEENT Reports moist mucous membranes HEENT Narrative: Contusion left forehead. No laceration. normocephalic Eyes General Eye ED: Yes normal appearance of both eyes Neck full ROM Chest Wall Chest: Negative for tenderness Resp normal respiratory effort and normal air movement Effort and Inspection: symmetric chest movement; Negative for respiratory distress Cardio regular rate, regular rhythm and no murmurs Peripheral Pulses: pulses 2+ throughout GI normal to inspection, nondistended, normoactive bowel sounds and non-tender Palpation: Negative for guarding or rebound tenderness present Extremity normal to inspection General Extremety ED: Negative for edema or tenderness General Extremity: Negative for edema Neuro oriented x3, CN's II-XII intact bilaterally and no sensory deficits noted Sensorium / Orientation: awake and alert Skin no rashes or lesions noted and no wounds Sepsis Attestation Sepsis Alert: Yes Sepsis Attestation: Sepsis Ruled Out MDM MDM MDM Narrative Medical decision making narrative: Interventions / MDM: Differential diagnosis: Acute kidney injury, hypotension, chronic anemia Diagnosis considered but do not suspect: N/A My EKG interpretation: Sinus rate of 88, no ST changes, T wave inversion lead III nonspecific. Imaging independently reviewed and interpreted by myself: CT brain: No intracranial hemorrhage. 1 view chest x-ray: No acute process. External documents reviewed: Heart cath 2021 nonobstructive minimal disease. Echocardiogram April 2023 EF 60% stage I diastolic dysfunction. Test considered but not ordered:N/A ED course: Patient alert and orient x 3 GCS 15. However she is hypotensive on arrival. She is talkative she is nontoxic. Afebrile. Sepsis workup initiated. She is on Eliquis with head injury will send for CT brain. 1 view chest x-ray. 30 cc/kg bolus will be ordered. 1545: Patient nearly 1 L fluid bolus in. Per nursing pulse ox 86% placed on 2 L. States occasional shortness of breath she denies cough. She is on chronic anticoagulation. Her labs white count 7.3 hemoglobin 9.3 stable improved from 8 previously. She has a creatinine 3.97 with BUN of 77 which is new from a normal level of 0.64 May 28, 2024. CT brain interpreted myself shows no intracranial hemorrhage. Chest x-ray negative. With her acute kidney injury, hypotension, Abraham catheter ordered. 1625: Blood pressure 94/44. Nearly 2 L of fluid in. Abraham catheter to be placed at this time. 1724: Urine negative for infection. Abraham catheter with 300 cc urine output. After 30 cc/kg bolus blood pressure 88/54, MAP of 64. No infectious causes. Will continue normal saline at 150/h. With her kidney injury and hypotension will discuss with hospitalist for admission. No no source of infection negative urine negative chest x-ray. Lactic acid normal. White count normal at 7.3. Discussed with Dr. Ritchie for admission to PCU. Re-evaluation: stable Disposition discussed with patient/family/significant other: Patient Case discussed with consulting clinician: Hospitalist This note was generated with [employer] dictation software. It may contain incorrect words, spelling, and punctuation that were not noted in checking the note before signing. Lab Data Attestation: I reviewed the patient's lab results. Labs: Laboratory Results - last 24 hr 07/09/24 07/09/24 10:43 15:01 WBC 7.3 RBC 3.06 L Hgb 9.3 L Hct 29.8 L MCV 97.4 MCH 30.4 MCHC 31.2 L RDW Std Deviation 50.9 H RDW Coeff of Valdemar 14.2 Plt Count 154 MPV 8.8 Immature Gran % (Auto) 0.300 Neut % (Auto) 80.1 H Lymph % (Auto) 14.4 L Riley % (Auto) 4.9 Eos % (Auto) 0.0 Baso % (Auto) 0.3 Absolute Neuts (auto) 5.9 Absolute Lymphs (auto) 1.05 Nucleated RBC % 0 PT 18.9 H INR 1.6 APTT 32.9 Sodium 141 Potassium 4.9 Chloride 102 Carbon Dioxide 23.8 Anion Gap 15 BUN 77 H Creatinine 3.97 H Estim Creat Clear Calc 14.01 L Est GFR (MDRD) Non-Af 12 L BUN/Creatinine Ratio 19.5 Glucose 118 H Lactic Acid 1.0 Calcium 8.8 Total Bilirubin 0.22 AST 41 H ALT 24 Alkaline Phosphatase 91 Total Protein 5.8 L Albumin 3.2 L Globulin 2.6 Albumin/Globulin Ratio 1.2 Urine Color Yellow Urine Clarity Clear Urine pH 5.0 Ur Specific [place] 1.025 Urine Protein 30 H Urine Glucose (UA) Normal Urine Ketones Negative Urine Occult Blood 10 H Urine Nitrite Negative Urine Bilirubin 1 H Urine Urobilinogen Normal Ur Leukocyte Esterase Negative Urine RBC 0 SEEN Urine WBC 0 SEEN Ur Squamous Epith Cells 0 SEEN Calcium Oxalate Crystal 1+ Urine Bacteria 1+ Hyaline Casts 0-5 SEEN Urine Mucus 0 SEEN Radiography Diagnostic Testing: Clinical Impression(s) from Imaging Studies Chest X-Ray 07/09/24 14:35 IMPRESSION: Cardiomegaly with mild congestion. Reading Location: [facility] Brain CT 07/09/24 15:20 IMPRESSION: 1. Generalized brain atrophy. 2. Small vessel ischemic/degenerative changes. 3. No acute intracranial hemorrhage, midline shift or mass effect. If symptoms persist, further evaluation with MRI is recommended. Reading Location: [facility] Discharge Plan Dx/Rx/DC Orders Clinical Impression: Acute kidney injury, Current use of anticoagulant therapy, Transient hypotension Disposition Disposition: Acute Care Hospital [facility] Discharge Date/Time: 07/09/24 19:29
--- NOTE | 2024-07-09 14:35 | RAD_ITS ---
EXAM: XR Chest, 1 View CLINICAL INDICATION: HYPOTENSION TECHNIQUE: Frontal view of the chest. COMPARISON: No relevant prior studies available. FINDINGS: LUNGS AND PLEURAL SPACES: See below. HEART: Cardiomegaly with mild congestion. MEDIASTINUM: Unremarkable. Normal mediastinal contour. BONES/JOINTS: Unremarkable. No acute fracture. RAD/Chest 1 View (Portable) IMPRESSION: Cardiomegaly with mild congestion. [facility]
[2024-07-09] MEDS: NORMAL SALINE 999 ML IV (14:56)
[2024-07-09 15:19] LABS: Absolute Lymphocyte Count 1.05 X10^3/uL (0.83-4.51); Absolute Neutrophil Count 5.9 X10^3/uL (2.0-7.7); Basophil# 0.02 X10^3/uL; Basophil% 0.3 % (0-1); Hematocrit 29.8 % (37-47); Hemoglobin 9.3 g/dL (12.0-15.0); Lymphocyte # 1.05 X10^3/ul (0.83-4.51); Lymphocyte % 14.4 % (19-41); Mean Corp Hgb Conc 31.2 g/dL (32-36); Mean Corpuscular Hgb 30.4 pg (27.0-32.0); Mean Corpuscular Volume 97.4 fL (81-99); Mean Platelet Vol. 8.8 fl (6.2-12.0); Monocyte# 0.36 X10^3/uL; Monocyte% 4.9 % (0-10); NRBC Flagged by Analyzer 0 % (0-5); Neutrophil # 5.86 X10^3/uL (2.7-7.7); Neutrophil % 80.1 % (47-70); Platelet Count 154 K/mm3 (150-450); RBC Distribution Width CV 14.2 % (11.6-14.6); RBC Distribution Width SD 50.9 fl (35.1-43.9); Red Blood Count 3.06 M/mm3 (4.2-5.4); White Blood Count 7.3 K/mm3 (4.4-11.0)
--- NOTE | 2024-07-09 15:20 | CT_ITS ---
EXAM: CT Head Without Intravenous Contrast CLINICAL INDICATION: HEAD INJURY TECHNIQUE: Axial computed tomography images of the head/brain without intravenous contrast. This CT exam was performed using one or more of the following dose reduction techniques: automated exposure control, adjustment of the mA and/or kV according to patient size, and/or use of iterative reconstruction technique. COMPARISON: CT Head dated 05/25/2024 FINDINGS: BRAIN AND EXTRA-AXIAL SPACES: The cerebral and cerebellar sulci are prominent consistent with brain atrophy. Areas of decreased attenuation in the deep cerebral white matter are consistent with small vessel ischemic/degenerative changes. No acute intracranial hemorrhage, midline shift or mass effect. If symptoms persist, further evaluation with MRI is recommended. BONES/JOINTS: Unremarkable. No acute fracture. SOFT TISSUES: Unremarkable. SINUSES: Unremarkable as visualized. No acute sinusitis. MASTOID AIR CELLS: Unremarkable as visualized. No mastoid effusion. CT/Brain/Head without Contrast IMPRESSION: 1. Generalized brain atrophy. 2. Small vessel ischemic/degenerative changes. 3. No acute intracranial hemorrhage, midline shift or mass effect. If symptoms persist, further evaluation with MRI is recommended. Reading Location[facility]
[2024-07-09 15:31] LABS: ALB/GLOB Ratio 1.2 RATIO (0.9-2.4); AST(SGOT) 41 U/L (<=31); Alanine Aminotransfer ALT/SGPT 24 U/L (<=34); Albumin, Serum 3.2 g/dL (3.4-4.8); Alkaline Phosphatase 91 U/L (35-104); Anion Gap 15 (5-15); BUN 77 mg/dL (4-19); BUN/Creat Ratio 19.5 RATIO (10-20); Calcium,Total 8.8 mg/dL (7.6-11.0); Carbon Dioxide 23.8 mmol/L (21.0-32.0); Chloride 102 mmol/L (98-108); Creatinine, Serum 3.97 mg/dL (0.70-1.20); EST Glomerular Filtration Rate 12 (>60); Estimated Creatinine Clearance 14.01 ml/min (50-250); Globulin 2.6 g/dL (2.2-4.2); Glucose 118 mg/dL (70-99); Potassium 4.9 mmol/L (3.3-5.1); Protein, Total 5.8 g/dL (5.9-8.4); Sodium Level 141 mmol/L (133-145); Total Bilirubin 0.22 mg/dL (0.00-1.30)
[2024-07-09 15:33] LABS: International Normalized Ratio 1.6; Prothrombin Time (Protime)PT. 18.9 SECONDS (11.7-14.9)
[2024-07-09 15:39] LABS: Partial Thromboplast Time 32.9 Seconds (24.1-36.2)
[2024-07-09 16:38] LABS: Mucous, Urine 0 SEEN /hpf (<or=2+); Squamous Epithelial Cells - UA 0 SEEN /hpf (5-10); White Blood Cells 0 SEEN /hpf (0-5)
[2024-07-09 16:47] LABS: Color, Urine Yellow (Yellow); Glucose, Dipstick Normal (Normal); Ketone-Dipstick Negative (Negative); Leukocyte Esterase-Dipstick Negative /ul (Negative); Nitrite-Dipstick Negative (Negative); Occult Blood-Urine 10 /ul (Negative); Protein-Dipstick 30 mg/dl (Negative); Specific Gravity, Urine 1.025 (1.002-1.030); Urine Clarity Clear (Clear); Urine Urobilinogen Normal (Normal)
[2024-07-09 16:51] LABS: Urine Bilirubin Dipstick 1 mg/dL (Negative)
[2024-07-09 17:13] LABS: Bacteria 1+ /hpf (None Seen); Calcium Oxalate Crystals Ur 1+ /hpf (<or=2+); Hyaline Cast 0-5 SEEN /lpf (0-5); Red Blood Cells-Urine 0 SEEN /hpf (0-5)
--- NOTE | 2024-07-09 18:27 | PCM.HP.STD ---
HPI - General General Date of Admission: 07/09/24 Date of Service: 07/09/24 Chief Complaint: Confusion HPI Narrative PARADISE FAUST, is a 63 F with past medical history of type 2 diabetes, dyslipidemia, GERD paroxysmal A-fib who presents presents to the ED with concerns regarding swelling acute body movement since last 2 days and was noted to have severe QUENTIN on ED lab evaluation. She notes that for the last few days she has been noticing twitching of her both her arms which she is not able to control., Rheumatoid arthritis, chronic pain syndrome, depression with anxiety. -Noted that she has been more confused over the last couple of days but he was more concerned about the twitching movements also. At first contact in the ED, the patient was not confused and was alert oriented x 3. However she was severely hypertensive with systolics being in the 70s and blood pressure was 75/41. She received fluid therapy in the ED and now is being admitted to evaluation of the hypertension and QUENTIN on? CKD She was admitted on 05/25/2024 for concerns regarding increasing confusion and generalized weakness and was noted to have sepsis at the time. She has completely recovered from that episode. [facility] Medical History History of left heart catheterization (LHC) (~11/22/21) Atherosclerotic heart disease of [place] coronary artery without angina pectoris Abnormal stress test Decreased left ventricular function Essential hypertension Hyperlipidemia Former smoker Acute coronary syndrome Injury of fifth cervical spinal cord Spinal cord stimulator status Chronic pain Arthritis Depression GERD (gastroesophageal reflux disease) Insomnia Neuropathic pain Rheumatoid arthritis Morbid obesity Debility Home Medications ?Medication ?Instructions ?Recorded ?Last Taken ?Type cholecalciferol (vitamin D3) 50 2,000 unit PO DAILY vitamin 12/14/20 07/09/24 History mcg (2,000 unit) tablet (Vitamin D3) folic acid-vit B6-vit B12 2.5 1 tab PO DAILY supplement 12/14/20 12/14/20 09:00 History mg-25 mg-1 mg tablet (Folbee) oxycodone-acetaminophen 7.5 mg-325 1 tab PO BID PRN Pain 12/16/20 Unknown History mg tablet prednisone 5 mg tablet 5 mg PO DAILY PRN RHEUMATOID 12/16/20 Unknown History ARTHRITIS FLARE lisinopril 5 mg tablet 5 mg PO DAILY bp #90 tabs 01/08/22 07/07/24 Rx potassium chloride 10 mEq 10 meq PO DAILY supplement #90 caps 01/08/22 07/09/24 Rx capsule,extended release metaxalone 800 mg tablet 400 - 800 mg PO TID PRN muscle 07/17/23 07/09/24 History spasm ondansetron 4 mg disintegrating 4 mg PO Q6H PRN nausea and 07/22/23 Unknown Rx tablet vomiting #15 tabs apixaban 5 mg tablet (Eliquis) 5 mg PO BID afib #60 tabs 01/21/24 07/09/24 Rx hydroxychloroquine 200 mg tablet 200 mg PO BID itching 04/06/24 07/09/24 History metformin 500 mg tablet,extended 500 mg PO DAILY diabetes 04/06/24 07/09/24 History release 24 hr paroxetine HCl 30 mg tablet 30 mg PO DAILY depression 04/06/24 Unknown History morphine 15 mg tablet,extended 15 mg PO BID pain 3 days #0 tabs 05/28/24 Unknown Rx release sennosides 8.6 mg-docusate sodium 2 tab PO BID #0 tabs 05/28/24 07/08/24 Rx 50 mg tablet (Stimulant Laxative Plus) tizanidine 2 mg tablet 2 mg PO Q6H PRN PRN SPASMS #0 tabs 05/28/24 07/06/24 Rx carvedilol 12.5 mg tablet 12.5 mg PO BID FOR HEART 1 month 05/29/24 07/09/24 Rx #60 tabs atorvastatin 40 mg tablet 40 mg PO QHS cholesterol 07/09/24 07/08/24 History esomeprazole magnesium 40 mg 40 mg PO BID reflux 07/09/24 07/09/24 History capsule,delayed release famotidine 20 mg tablet 20 mg PO QHS 07/09/24 07/08/24 History gabapentin 800 mg tablet 800 mg PO .COMPLEX nueropathy 07/09/24 07/09/24 History hydroxyzine pamoate 25 mg capsule 25 - 50 mg PO TID PRN anxiety 07/09/24 07/09/24 History methotrexate sodium 25 mg/mL 15 mg subcut WE 07/09/24 07/08/24 History injection solution omega-3 acid ethyl esters 1 gram 2 cap PO BID 07/09/24 Unknown History capsule triamcinolone acetonide 0.1 % 1 applic topical BID 07/09/24 Unknown History topical cream Allergy/AdvReac Type Severity Reaction Status Date / Time adhesive Allergy blisters Verified 07/09/24 14:18 codeine AdvReac Nausea Verified 07/09/24 14:18 Family History Father CAD (coronary artery disease) Other Heart disease Surgical History History of appendectomy Previous back surgery Social History household members: spouse housing: apartment Smoking Status: Former smoker ROS Review of Systems ROS Unobtainable: Denies due to encephalopathy, due to endotracheal tube, due to mental condition, due to mental status or other Constitutional Constitutional: Reports fatigue Eyes Eyes: Denies blurry vision, change in eye color, change in vision, discharge from eye(s), double vision, erythema, eye pain, loss of vision or other ENT HEENT: Denies abnormal hearing, dysphagia, ear pain, epistaxis, headache(s), hearing loss, nasal congestion, nasal discharge, post nasal drip, sinus pressure, sore throat or other Cardiovascular Cardiovascular: Denies chest pain, claudication, dyspnea on exertion, edema, lightheadedness, orthopnea, palpitations, paroxysmal nocturnal dyspnea, rapid heart rate, syncope or other Respiratory/Chest Respiratory/Chest: Denies cough, dyspnea, excessive phlegm production, hemoptysis, productive cough, shortness of breath at rest, shortness of breath with exertion, wheezing or other Gastrointestinal Gastrointestinal: Denies abdominal pain, coffee ground emesis, constipation, diarrhea, dyspepsia, hematemesis, hematochezia, loose stools, melena, nausea, vomiting or other Genitourinary Genitourinary: Denies burning urination, difficulty urinating, dysuria, hematuria, nocturia, urinary frequency, urinary hesitancy, urinary incontinence, urinary urgency or other Musculoskeletal Musculoskeletal: Denies arthralgias, back pain, joint pain, joint stiffness, joint swelling, myalgias, neck pain or other Neurologic Neurologic: Reports tingling Psychiatric Psychiatric: Denies anxiety, depression, homicidal ideation, suicidal ideation or other Endocrine Endocrinology: Denies change in body appearance, cold intolerance, excessive sweating, heat intolerance, polydipsia, polyuria or other Hematologic/Lymphatic Hematologic/Lymphatic: Denies anemia, easy bleeding, easy bruising, lymphadenopathy or other Allergic/Immunologic Allergic/Immunologic: Denies rhinitis, hives, eczemia, asthma or other Vital Signs Vital Signs Vital Signs: 07/09/24 14:08 07/09/24 15:05 07/09/24 15:15 Temperature 98.1 F Temperature Source Temporal Pulse Rate 88 89 Respiratory Rate 16 16 Blood Pressure 75/41 L 68/49 L Blood Pressure Mean 52 55 Pulse Ox 91 95 86 Oxygen Delivery Method Room Air Room Air Room Air Oxygen Flow Rate (L/min) 07/09/24 15:15 07/09/24 16:00 07/09/24 16:53 Temperature Temperature Source Pulse Rate 86 87 Respiratory Rate 20 H 20 H Blood Pressure 99/44 L 94/53 L Blood Pressure Mean 62 66 Pulse Ox 95 96 96 Oxygen Delivery Method Nasal Cannula Nasal Cannula Nasal Cannula Oxygen Flow Rate (L/min) 2 2 2 07/09/24 17:49 07/09/24 17:58 Temperature 98.6 F Temperature Source Pulse Rate 89 88 Respiratory Rate 19 H 16 Blood Pressure 90/52 L 88/57 L Blood Pressure Mean 64 67 Pulse Ox 95 98 Oxygen Delivery Method Nasal Cannula Oxygen Flow Rate (L/min) 2 Weight Weight: 162 lb 14.746 oz Body Mass Index (BMI) 29.7 Physical Exam Const alert and oriented x3 HEENT normocephalic Eyes PERRL Neck no lymphadenopathy Resp normal respiratory effort and no retractions Cardio regular rate and regular rhythm GI normal to inspection, nondistended, normoactive bowel sounds Extremity normal to inspection Neuro oriented x3, CN's II-XII intact bilaterally and moves all extremities Neuro Narrative: Sudden jerking movements of bilateral shoulders Results Medical Records Data Attestation: I reviewed the patient's medical records Lab / Micro Data Attestation: I reviewed the patient's lab results. 07/09/24 15:01 07/09/24 15:01 Labs: Laboratory Results - last 24 hr 07/09/24 10:43: Urine Color Yellow, Urine Clarity Clear, Urine pH 5.0, Ur Specific [place] 1.025, Urine Protein 30 H, Urine Glucose (UA) Normal, Urine Ketones Negative, Urine Occult Blood 10 H, Urine Nitrite Negative, Urine Bilirubin 1 H, Urine Urobilinogen Normal, Ur Leukocyte Esterase Negative, Urine RBC 0 SEEN, Urine WBC 0 SEEN, Ur Squamous Epith Cells 0 SEEN, Calcium Oxalate Crystal 1+, Urine Bacteria 1+, Hyaline Casts 0-5 SEEN, Urine Mucus 0 SEEN 07/09/24 15:01: WBC 7.3, RBC 3.06 L, Hgb 9.3 L, Hct 29.8 L, MCV 97.4, MCH 30.4, MCHC 31.2 L, RDW Std Deviation 50.9 H, RDW Coeff of Valdemar 14.2, Plt Count 154, MPV 8.8, Immature Gran % (Auto) 0.300, Neut % (Auto) 80.1 H, Lymph % (Auto) 14.4 L, [place] % (Auto) 4.9, Eos % (Auto) 0.0, Baso % (Auto) 0.3, Absolute Neuts (auto) 5.9, Absolute Lymphs (auto) 1.05, Nucleated RBC % 0, PT 18.9 H, INR 1.6, APTT 32.9, Sodium 141, Potassium 4.9, Chloride 102, Carbon Dioxide 23.8, Anion Gap 15, BUN 77 H, Creatinine 3.97 H, Estim Creat Clear Calc 14.01 L, Est GFR (MDRD) Non-Af 12 L, BUN/Creatinine Ratio 19.5, Glucose 118 H, Lactic Acid 1.0, Calcium 8.8, Total Bilirubin 0.22, AST 41 H, ALT 24, Alkaline Phosphatase 91, Total Protein 5.8 L, Albumin 3.2 L, Globulin 2.6, Albumin/Globulin Ratio 1.2 Imaging Radiology Impression Chest X-Ray 07/09/24 14:35 IMPRESSION: Cardiomegaly with mild congestion. Reading Location: [facility] Brain CT 07/09/24 15:20 IMPRESSION: 1. Generalized brain atrophy. 2. Small vessel ischemic/degenerative changes. 3. No acute intracranial hemorrhage, midline shift or mass effect. If symptoms persist, further evaluation with MRI is recommended. Reading Location: [facility] Assessment & Plan Assessment/Plan (1) Acute kidney injury: PLAN: Plan 63-year-old female with past history of rheumatoid arthritis, type 2 diabetes, GERD, dyslipidemia presents to the ED with concerns regarding sudden jerking movements, associated with hypotension and severe acute kidney injury. The reason for her underlying presentation is not exactly known. #Acute kidney injury #Differentials: Diabetic kidney disease versus prerenal QUENTIN -Likely related to hypotension, suspect hypovolemia -No obvious reason for hypovolemia -Urine proteins positive could be underlying glomera nephritis -Continue IV fluid started in the ED -Repeat creatinine to assess improvement in creatinine and BUN levels -If there is no improvement we will consider ultrasound kidneys to assess for any chronic damage -If there is persistent elevated creatinine nephrology consult -HbA1c levels #Hypotension -She is was afebrile at the time of presentation Will get cultures to rule out sepsis -IV fluid therapy, close monitoring of input output -Echocardiogram # Sudden jerky movements -Continue to monitor, could be because of ischemia secondary to the hypotension -If persistent will plan for MRI brain Can could be medication associated and will hold paroxetine for now #Dyslipidemia -Continue atorvastatin #Type 2 diabetes -Insulin per sliding scale -ACHS monitoring #Paroxysmal atrial fibrillation Will continue carvedilol, and apixaban #DVT prophylaxis -Already on apixaban #Rheumatoid arthritis -Hold weekly methotrexate during the admission #Chronic pain syndrome -Continue gabapentin #Depression with anxiety -Continue home med Patient will likely stay more than 2 days in the hospital
[2024-07-09 19:01] LABS: Anion Gap UNABLE TO CALCULATE (5-15); Globulin UNABLE TO CALCULATE g/dL (2.2-4.2)
[2024-07-09 19:19] LABS: ALB/GLOB Ratio 1.2 RATIO (0.9-2.4); AST(SGOT) 35 U/L (<=31); Alanine Aminotransfer ALT/SGPT 19 U/L (<=34); Albumin, Serum 2.8 g/dL (3.4-4.8); Alkaline Phosphatase 78 U/L (35-104); BUN 69 mg/dL (4-19); BUN/Creat Ratio 21.7 RATIO (10-20); Calcium,Total 7.8 mg/dL (7.6-11.0); Carbon Dioxide 20.7 mmol/L (21.0-32.0); Chloride 106 mmol/L (98-108); Creatinine, Serum 3.16 mg/dL (0.70-1.20); EST Glomerular Filtration Rate 16 (>60); Glucose 106 mg/dL (70-99); Magnesium 1.8 mg/dL (1.5-2.2); Potassium 4.4 mmol/L (3.3-5.1); Sodium Level 141 mmol/L (133-145); Total Bilirubin 0.17 mg/dL (0.00-1.30)
--- NOTE | 2024-07-09 19:27 | CASEMGMT ---
Care Management Face to Face with patient for initial transition planning/care coordination assessment in the ED.? 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. Patient alert but slightly confused. Ex present and assisted in discharge questions.? Care providers, pharmacy, and demographics verified. Admitting Diagnosis:? Confusion Other diagnosis history: LHC, hypertension, arthritis, neuropathic pain, rheumatoid arthritis PCP: ajlil Specialists: Preferred Pharmacy: [facility] Insurance: ?[facility] Prescription Benefit: yes Living Will/HPOA: ?no LNOK: sister Living Arrangements: Lives with ex- in a 1 story home, patient states she can ?mostly? care for herself.? Ex states he helps her when she needs assistance.? Transportation: ex- drives DME: ?wheelchair, shower bench, bedside commode, grab bars, blood pressure cuff, pulse ox HHC: ?Patient states she has PT and SW through [facility] SNF/Rehab: reports being at [facility] and [facility] Resources: ?None Behavioral Health History: depression Patient goals: Patient discharge wishes are uncertain at this time. Disposition Plan: admission to acute; RN CM/SW to follow for discharge planning needs that may arise.
--- NOTE | 2024-07-09 19:52 | ECHOCS_ITS ---
Reason For Study Reason For Study: Hypotension Procedure This was a 2D Doppler, Color Flow transthoracic echocardiogram. Contrast injection was performed. Exam performed portable in patient room. Left Ventricle Normal LV size. The estimated ejection fraction is 70 %. Diastolic function is indeterminate. No regional wall motion abnormalities noted. Right Ventricle Normal RV size. Normal systolic function. Atria The left atrium is mildly enlarged. Normal right atrium. No doppler evidence for ASD. Mitral Valve There is mild mitral annular calcification. There is no mitral valve stenosis. Trivial mitral valve insufficiency. Tricuspid Valve There is no tricuspid stenosis. Unable to estimate RV systolic pressure due to inadequate jet, pulmonary artery pressure probably normal. Aortic Valve Trisinus/trileaflet aortic valve. Mild diffuse aortic valve thickening. Mild aortic stenosis. No aortic valve insufficiency. Pulmonic Valve There is no pulmonic valvular stenosis. No pulmonic valve insufficiency. Great Vessels Normal sized aortic root. Pericardium/Pleural No pericardial effusion. Medication Diluted definity 1ml given slow IV push to enhance endocardial definition. MMode/2D Measurements & Calculations LVIDd: 4.2 cm IVSd: 1.0 cm LVOT diam: 1.9 cm LVIDs: 2.9 cm LVPWd: 0.99 cm RVDd: 3.3 cm FS: 31.0 % LVOT area: 2.7 cm2 Ao root diam: 2.9 cm LAV(MOD-bp): 63.6 ml LVAd ap4: 27.4 cm2 LAV(MOD-bp) Indexed: 36.0 ml/m2 LVLd ap4: 7.0 cm LAV(MOD-sp2): 49.9 ml EDV(MOD-sp4): 88.5 ml LAV(MOD-sp4): 73.1 ml EDV(sp4-el): 90.9 ml LVAs ap4: 13.7 cm2 LVLs ap4: 5.8 cm ESV(MOD-sp4): 26.5 ml ESV(sp4-el): 27.5 ml EF(MOD-sp4): 70.0 % EF(sp4-el): 69.7 % SV(MOD-sp4): 62.0 ml SV(sp4-el): 63.4 ml LA A4 area: 23.1 cm2 SI(MOD-sp4): 35.1 ml/m2 LA dimension(2D): 4.1 cm RA A4 area: 9.7 cm2 TAPSE: 1.8 cm Time Measurements MV dec time: 0.23 sec Doppler Measurements & Calculations MV E max jose: 90.6 cm/sec Lat Peak E' Jose: 9.4 cm/sec Med Peak E' Jose: 7.3 cm/sec MV A max jose: 107.8 cm/sec E/E' lat: 9.6 E/E' med: 12.5 MV E/A: 0.84 MV dec slope: 396.7 cm/sec2 Ao V2 max: 225.4 cm/sec LV V1 max: 140.0 cm/sec Ao max P.3 mmHg LV V1 max P.8 mmHg Ao V2 mean: 147.1 cm/sec LV V1 mean P.3 mmHg Ao mean P.2 mmHg LV V1 mean: 98.9 cm/sec Ao V2 VTI: 43.3 cm LV V1 VTI: 27.9 cm AV (velocity ratio): 0.65 NU(I,D): 1.7 cm2 NU(V,D): 1.7 cm2 SV(LVOT): 75.5 ml PA V2 max: 129.4 cm/sec TR max jose: 279.1 cm/sec TR max P.2 mmHg ECHO/Echo Complete W/ Contrast Interpretation Summary The estimated ejection fraction is 70 %. The left atrium is mildly enlarged. Trivial mitral valve insufficiency. Mild aortic stenosis. Ordering Physician: Antonio Ritchie Referring Physician: Keren Carlson Performed By: Bessy Moses, TIARRACS, RVT
[2024-07-09] MEDS: 0.9% Normal Saline (1000mL) 1,000 ML 100 ML IV (21:05)
[2024-07-09] MEDS: Gabapentin 600 MG Tablet 1200 MG PO (21:53)
[2024-07-09] MEDS: APIXABAN 5 MG TABLET PO (21:54)
[2024-07-09] MEDS: Pantoprazole Sodium 40 MG Tablet PO (21:54)
[2024-07-09] MEDS: Famotidine 20 MG Tablet PO (21:54)
[2024-07-09] MEDS: Atorvastatin Calcium 40 MG Tablet PO (21:54)
[2024-07-09] MEDS: Hydroxychloroquine 200 MG Tablet PO (21:55)
[2024-07-10] VITALS (8 sets, daily range): BP systolic 100–119; BP diastolic 53–68; PULSE 77–85; RESP 16–18; TEMP 36.4–37.6; O2SAT 91–100
[2024-07-10] MEDS: 0.9% Normal Saline (1000mL) 1,000 ML 100 ML IV (07:38)
[2024-07-10 07:56] LABS: Absolute Lymphocyte Count 1.23 X10^3/uL (0.83-4.51); Absolute Neutrophil Count 3.2 X10^3/uL (2.0-7.7); Basophil# 0.01 X10^3/uL; Basophil% 0.2 % (0-1); Eosinophil# 0.16 X10^3/uL; Eosinophils% 3.3 % (0-5); Hemoglobin 8.4 g/dL (12.0-15.0); Lymphocyte # 1.23 X10^3/ul (0.83-4.51); Lymphocyte % 25.1 % (19-41); Mean Corpuscular Hgb 30.3 pg (27.0-32.0); Mean Corpuscular Volume 101.1 fL (81-99); Mean Platelet Vol. 8.6 fl (6.2-12.0); Monocyte# 0.28 X10^3/uL; Monocyte% 5.7 % (0-10); NRBC Flagged by Analyzer 0 % (0-5); Neutrophil # 3.19 X10^3/uL (2.7-7.7); Neutrophil % 65.1 % (47-70); POSITIVE MORPHOLOGY YES; Platelet Count 141 K/mm3 (150-450); RBC Distribution Width CV 14.2 % (11.6-14.6); RBC Distribution Width SD 51.8 fl (35.1-43.9); Red Blood Count 2.77 M/mm3 (4.2-5.4); White Blood Count 4.9 K/mm3 (4.4-11.0)
[2024-07-10 08:08] LABS: Differential Indicated SCAN CRITERIA MET
--- NOTE | 2024-07-10 08:13 | PN.HOSP_ITS ---
Reason for Visit Reason for Visit: Diagnoses Acute kidney failure, unspecified (07/09/24) Subjective Subjective Still with myoclonus. Objective Data Objective Data Vital Signs: Vital Signs Temp Pulse Resp BP Pulse Ox O2 Del Method O2 Flow Rate 36.8 C 81 16 112/66 100 Nasal Cannula 2 07/10/24 03:51 07/10/24 03:51 07/10/24 03:51 07/10/24 03:51 07/10/24 03:51 07/10/24 03:51 07/10/24 03:51 Oxygen Flow Rate (L/min) 2 Oxygen Delivery Method Nasal Cannula Weight: 75.3 kg Body Mass Index (BMI) 32.4 Intake & Output: Intake and Output for Last 24 Hours 07/08/24 07/09/24 07/10/24 23:59 23:59 23:59 Intake Total 2650 / 2650 1200 / 1200 Output Total 500 / 500 150 / 150 Balance 2150 / 2150 1050 / 1050 Lab / Micro Data 07/10/24 07:18 07/10/24 07:18 Labs: Laboratory Results - last 24 hr 07/09/24 10:43: Urine Color Yellow, Urine Clarity Clear, Urine pH 5.0, Ur Specific [place] 1.025, Urine Protein 30 H, Urine Glucose (UA) Normal, Urine Ketones Negative, Urine Occult Blood 10 H, Urine Nitrite Negative, Urine Bilirubin 1 H, Urine Urobilinogen Normal, Ur Leukocyte Esterase Negative, Urine RBC 0 SEEN, Urine WBC 0 SEEN, Ur Squamous Epith Cells 0 SEEN, Calcium Oxalate Crystal 1+, Urine Bacteria 1+, Hyaline Casts 0-5 SEEN, Urine Mucus 0 SEEN 07/09/24 15:01: WBC 7.3, RBC 3.06 L, Hgb 9.3 L, Hct 29.8 L, MCV 97.4, MCH 30.4, MCHC 31.2 L, RDW Std Deviation 50.9 H, RDW Coeff of [place]dem[place] 14.2, Plt Count 154, MPV 8.8, Immature Gran % (Auto) 0.300, Neut % (Auto) 80.1 H, Lymph % (Auto) 14.4 L, [place] % (Auto) 4.9, Eos % (Auto) 0.0, Baso % (Auto) 0.3, Absolute Neuts (auto) 5.9, Absolute Lymphs (auto) 1.05, Nucleated RBC % 0, PT 18.9 H, INR 1.6, APTT 32.9, Sodium 141, Potassium 4.9, Chloride 102, Carbon Dioxide 23.8, Anion Gap 15, BUN 77 H, Creatinine 3.97 H, Estim Creat Clear Calc 14.01 L, Est GFR (MDRD) Non-Af 12 L, BUN/Creatinine Ratio 19.5, Glucose 118 H, Lactic Acid 1.0, Calcium 8.8, Total Bilirubin 0.22, AST 41 H, ALT 24, Alkaline Phosphatase 91, Total Protein 5.8 L, Albumin 3.2 L, Globulin 2.6, Albumin/Globulin Ratio 1.2 07/09/24 18:24: Sodium 141, Potassium 4.4, Chloride 106, Carbon Dioxide 20.7 L, Anion Gap UNABLE TO CALCULATE L, BUN 69 H, Creatinine 3.16 H, Estim Creat Clear Calc 17.60 L, Est GFR (MDRD) Non-Af 16 L, BUN/Creatinine Ratio 21.7 H, Glucose 106 H, Calcium 7.8, Magnesium 1.8, Total Bilirubin 0.17, AST 35 H, ALT 19, Alkaline Phosphatase 78, Total Protein 5.0 L, Albumin 2.8 L, Globulin UNABLE TO CALCULATE L, Albumin/Globulin Ratio 1.2 07/10/24 07:18: WBC 4.9, RBC 2.77 L, Hgb 8.4 L, Hct 28.0 L, MCV 101.1 H, MCH 30.3, MCHC 30.0 L, RDW Std Deviation 51.8 H, RDW Coeff of Valdemar 14.2, Plt Count 141 L, MPV 8.6, Immature Gran % (Auto) 0.600, Neut % (Auto) 65.1, Lymph % (Auto) 25.1, [place] % (Auto) 5.7, Eos % (Auto) 3.3, Baso % (Auto) 0.2, Absolute Neuts (auto) 3.2, Absolute Lymphs (auto) 1.23, Nucleated RBC % 0 Radiography Diagnostic Testing: Radiology Impression Chest X-Ray 07/09/24 14:35 IMPRESSION: Cardiomegaly with mild congestion. Reading Location: [facility] Brain CT 07/09/24 15:20 IMPRESSION: 1. Generalized brain atrophy. 2. Small vessel ischemic/degenerative changes. 3. No acute intracranial hemorrhage, midline shift or mass effect. If symptoms persist, further evaluation with MRI is recommended. Reading Location: [facility] Physical Exam Const alert and no apparent distress HEENT head/scalp atraumatic and moist oral mucous membranes Resp normal respiratory effort, no retractions, no use of accessory muscles and clear to auscultation bilaterally Cardio regular rate, regular rhythm, S1 normal heart sound and S2 normal heart sound GI normal to inspection, nondistended, normoactive bowel sounds, soft to palpation, non-tender and non-distended Extremity normal to inspection, full ROM and no clubbing, cyanosis or edema Neuro Sensorium / Orientation: awake and alert Assessment & Plan Assessment/Plan (1) Acute kidney injury: PLAN: Improving with IVF. suspect prerenal. Creatinine was 0.64 on 05/28/2024. check urine studies. Check renal US. Hold lisinopril, (2) Myoclonus: PLAN: I suspect due to QUENTIN and gabapentin use. DC gabapentin for now, resume when kidney function much improved. (3) Transient hypotension: PLAN: Likely 2/2 dehydration. Resolved with IVF. Possible adrenal insufficiency given chronic prednisone use. Consider stress-dose steroids if refractory. PLAN: Plan Chronic conditions: * RA: continue prednisone. Hold hydroxychloroquine. * CAD * HTN: hold antihypertensives due to hypotension. * chronic pain: on MSER and percocet (reviewed OARRS). Hold MSER given QUENTIN for now. * pafib: carvedilol as BP allows and anticoagulation with apixaban VTE prophylaxis: not indicated as already on apixaban. Charges/Coding Visit Charges Inpatient E&M: 62968 Subs Hosp L2
[2024-07-10 08:27] LABS: Differential Comment SCANNED
--- NOTE | 2024-07-10 08:28 | US_ITS ---
EXAM: US Retroperitoneal Limited, Renal CLINICAL INDICATION: QUENTIN TECHNIQUE: Real-time limited ultrasound of the retroperitoneum with image documentation. COMPARISON: No relevant prior studies available. FINDINGS: RIGHT KIDNEY: Unremarkable. No stones. No hydronephrosis. The right kidney measures 9.5 x 5.1 x 5.4 cm. LEFT KIDNEY: Unremarkable. No stones. No hydronephrosis. The left kidney measures 10.0 x 4.9 x 5.6 cm. BLADDER: Urinary bladder is decompressed. Urinary Abraham catheter. US/Kidney and Bladder IMPRESSION: No acute findings in the retroperitoneum. [facility]
[2024-07-10 08:38] LABS: Magnesium 1.9 mg/dL (1.5-2.2); Phosphorus 3.1 mg/dL (2.7-4.5)
[2024-07-10 08:46] LABS: International Normalized Ratio 1.7; Prothrombin Time (Protime)PT. 20.6 SECONDS (11.7-14.9)
[2024-07-10 09:18] LABS: ALB/GLOB Ratio 1.2 RATIO (0.9-2.4); AST(SGOT) 33 U/L (<=31); Alanine Aminotransfer ALT/SGPT 19 U/L (<=34); Albumin, Serum 2.8 g/dL (3.4-4.8); Alkaline Phosphatase 81 U/L (35-104); Anion Gap 9 (5-15); BUN 51 mg/dL (4-19); BUN/Creat Ratio 35.5 RATIO (10-20); Bilirubin, Direct 0.13 mg/dL (0.00-0.30); Calcium,Total 8.1 mg/dL (7.6-11.0); Carbon Dioxide 24.3 mmol/L (21.0-32.0); Chloride 111 mmol/L (98-108); Creatinine, Serum 1.43 mg/dL (0.70-1.20); EST Glomerular Filtration Rate 42 (>60); Estimated Creatinine Clearance 37.45 ml/min (50-250); Globulin 2.3 g/dL (2.2-4.2); Glucose 90 mg/dL (70-99); Potassium 4.3 mmol/L (3.3-5.1); Protein, Total 5.2 g/dL (5.9-8.4); Sodium Level 144 mmol/L (133-145); Total Bilirubin 0.22 mg/dL (0.00-1.30)
[2024-07-10] MEDS: Pantoprazole Sodium 40 MG Tablet PO ×2 (10:43→19:50)
[2024-07-10] MEDS: APIXABAN 5 MG TABLET PO ×2 (10:43→19:50)
[2024-07-10] MEDS: Carvedilol 12.5 MG Tablet PO ×2 (10:43→18:27)
[2024-07-10 10:49] LABS: Urine Sodium 33 mmol/L (Not Establ.)
--- NOTE | 2024-07-10 11:28 | CASEMGMT ---
Addendum entered by Angela Kruse 07/10/24 11:38: [facility] called in to [facility] this AM. They are aware pt has been admitted to [facility]. Original Note: DADA HALL NOTE: DADA HALL to room. Introduced self and role. Pt sitting up in chair. Therapy just finishing working w/pt. They state pt is safe to discharge home and feel pt is close to being back to her baseline. Discussed discharge planning w/pt. She states she would like to dc home w/[facility] and declines wanting list of other [facility] options. [facility] order placed. alexi Francis casting assistant, to send [facility] referral to [facility] via [facility]. Pt denies having other discharge needs/concerns. She states either family, a friend, or her ex- can take her home @ dc. Green sheet placed on chart w/instructions to notify [facility] @ discharge. Dylon HALL RN, CM
--- NOTE | 2024-07-10 11:47 | CASEMGMT ---
Addendum entered by Penny Nunes 07/10/24 12:57: Pt is active with SN & PT. RN CM updated. Penny Nunes DC Planning Asst. Original Note: Discharge Planning HH resumption sent to N with note asking for confirmation of disciplines being rec'd. Penny Nunes DC Planning Asst.
--- NOTE | 2024-07-10 12:54 | CASEMGMT ---
RN CM NOTE: Gus Francis dc insurance sales assistant, pt has SN and PT services w/[facility]. Dylon PINEDAN RN CM
--- NOTE | 2024-07-10 15:56 | CASEMGMT ---
Discharge Planning Updated order sent to N. Penny Nunes DC Planning Asst.
[2024-07-10] MEDS: Ensure Plus High Protein 120 ML LIQUID PO (18:27)
[2024-07-10] MEDS: Atorvastatin Calcium 40 MG Tablet PO (19:50)
[2024-07-10] MEDS: Famotidine 20 MG Tablet PO (19:50)
[2024-07-11] MEDS: oxyCODONE 5 MG Tablet 7.5 MG PO ×2 (00:24→16:10)
[2024-07-11 02:50] VITALS: BP 116/53; PULSE 87; RESP 18; TEMP 37.1; O2SAT 97
[2024-07-11] MEDS: 0.9% Saline Lock 10 ML Syringe IV (03:13)
[2024-07-11 07:27] LABS: Anion Gap 7 (5-15); BUN 24 mg/dL (4-19); BUN/Creat Ratio 42.6 RATIO (10-20); Carbon Dioxide 24.8 mmol/L (21.0-32.0); Chloride 107 mmol/L (98-108); Creatinine, Serum 0.56 mg/dL (0.70-1.20); EST Glomerular Filtration Rate 104 (>60); Estimated Creatinine Clearance 95.63 ml/min (50-250); Glucose 119 mg/dL (70-99); Potassium 4.2 mmol/L (3.3-5.1); Sodium Level 138 mmol/L (133-145)
--- NOTE | 2024-07-11 08:49 | PN.HOSP_ITS ---
Reason for Visit Reason for Visit: Diagnoses Myoclonus (07/09/24) Hypotension, unspecified (07/09/24) Acute kidney failure, unspecified (07/09/24) Subjective Subjective Tolerated diet. Doing well. Objective Data Objective Data Vital Signs: Vital Signs Temp Pulse Resp BP Pulse Ox O2 Del Method O2 Flow Rate 37.1 C 87 18 116/53 L 97 Room Air 94 07/11/24 02:50 07/11/24 02:50 07/11/24 02:50 07/11/24 02:50 07/11/24 02:50 07/11/24 07:58 07/10/24 11:38 Oxygen Flow Rate (L/min) 94 Oxygen Delivery Method Room Air Weight: 75.3 kg Body Mass Index (BMI) 32.4 Intake & Output: Intake and Output for Last 24 Hours 07/09/24 07/10/24 07/11/24 23:59 23:59 23:59 Intake Total 2650 / 2650 2940 / 2940 300 / 300 Output Total 500 / 500 950 / 950 600 / 600 Balance 2150 / 2150 1989 / 1989 -300 / -300 Medical Nutrition Assessment Dietitian: Malnutrition Criteria Met Start: 07/10/24 13:08 Freq: Status: Active Protocol: Document 07/10/24 13:52 SB (Rec: 07/10/24 13:52 SB [id number]) Nutrition Malnutrition Evidence of Yes Malnutrition Exists Malnutrition (severe Chronic ): Evidenced By Suboptimal Energy Intake (Severe),Weight Loss (Severe) Clinical Problem Chronic Disease or Condition Related Malnutrition Etiology severe related to inadequate oral intake Signs/Symptoms as evidenced by PO meeting <50% of estimated nutrition needs x 3 months and 14% unintentional weight loss x 4 months. Status Active Problem Recommendation Dietitian Adjust to liberal regular diet d/t signs and symptoms Recommendations/ of malnutrition. Changes Continue 120ml ensure plus high protein TID with medpass. Will monitor weight trends. Lab / Micro Data 07/11/24 06:28 07/11/24 06:28 Labs: Laboratory Results - last 24 hr 07/09/24 14:34: Ur Random Sodium 33, Urine Creatinine 129.00 07/10/24 07:18: Sodium 144, Potassium 4.3, Chloride 111 H, Carbon Dioxide 24.3, Anion Gap 9, BUN 51 H, Creatinine 1.43 H, Estim Creat Clear Calc 37.45 L, Est GFR (MDRD) Non-Af 42 L, BUN/Creatinine Ratio 35.5 H, Glucose 90, Calcium 8.1, Total Bilirubin 0.22, Direct Bilirubin 0.13, AST 33 H, ALT 19, Alkaline Phosphatase 81, Total Protein 5.2 L, Albumin 2.8 L, Globulin 2.3, Albumin/Globulin Ratio 1.2 07/11/24 06:28: Sodium 138, Potassium 4.2, Chloride 107, Carbon Dioxide 24.8, Anion Gap 7, BUN 24 H, Creatinine 0.56 L, Estim Creat Clear Calc 95.63, Est GFR (MDRD) Non-Af 104, BUN/Creatinine Ratio 42.6 H, Glucose 119 H, Calcium 8.0 Radiography Diagnostic Testing: Radiology Impression Echocardiogram 07/09/24 19:52 Interpretation Summary The estimated ejection fraction is 70 %. The left atrium is mildly enlarged. Trivial mitral valve insufficiency. Mild aortic stenosis. Ordering Physician: Antonio Ritchie Referring Physician: Keren Carlson Performed By: Bessy Moses, RDCS, RVT Renal Ultrasound 07/10/24 08:28 IMPRESSION: No acute findings in the retroperitoneum. Reading Location: [facility] Physical Exam Const alert and no apparent distress HEENT head/scalp atraumatic and moist oral mucous membranes Resp normal respiratory effort and no retractions Assessment & Plan Assessment/Plan (1) Acute kidney injury: PLAN: Resolved with IVF. suspect prerenal. Creatinine was 0.64 on 05/28/2024. FENa 0.25%. Renal US negative. (2) Myoclonus: PLAN: I suspect due to QUENTIN and gabapentin use. DC gabapentin for now, resume when kidney function much improved. (3) Transient hypotension: PLAN: Likely 2/2 dehydration. Resolved with IVF. Possible adrenal insufficiency given chronic prednisone use. Consider stress-dose steroids if refractory. PLAN: Plan Chronic conditions: * RA: continue prednisone hydroxychloroquine. * CAD * HTN: hold furosemide and lisinopril given QUENTIN and hypotension * chronic pain: on MSER and percocet (reviewed [facility]). Hold MSER given QUENTIN for now. * pafib: carvedilol as BP allows and anticoagulation with apixaban VTE prophylaxis: not indicated as already on apixaban. DW patient's significant other.
[2024-07-11 09:03] VITALS: BP 119/99; PULSE 78; RESP 16; TEMP 36.1; O2SAT 95
[2024-07-11] MEDS: Menthol/Lanolin/Calamine/Znox 113 GM Tube 1 APPLIC TOPICAL (09:05)
[2024-07-11] MEDS: Ondansetron ODT 4 MG Tablet PO ×2 (09:05→16:11)
[2024-07-11] MEDS: Nystatin Powder 15gm Bottle 1 APPLIC TOPICAL (09:05)
[2024-07-11] MEDS: Pantoprazole Sodium 40 MG Tablet PO (09:32)
[2024-07-11] MEDS: Carvedilol 12.5 MG Tablet PO ×2 (09:32→16:14)
[2024-07-11] MEDS: APIXABAN 5 MG TABLET PO (09:33)
[2024-07-11 10:16] LABS: Absolute Neutrophil Count 3.3 X10^3/uL (2.0-7.7); Basophil# 0.01 X10^3/uL; Basophil% 0.2 % (0-1); Hematocrit 24.1 % (37-47); Hemoglobin 7.8 g/dL (12.0-15.0); Lymphocyte % 26.3 % (19-41); Mean Corp Hgb Conc 32.4 g/dL (32-36); Mean Corpuscular Hgb 31.1 pg (27.0-32.0); Mean Platelet Vol. 8.6 fl (6.2-12.0); Monocyte# 0.35 X10^3/uL; Monocyte% 7.1 % (0-10); NRBC Flagged by Analyzer 0 % (0-5); Neutrophil # 3.27 X10^3/uL (2.7-7.7); Neutrophil % 66.2 % (47-70); Platelet Count 137 K/mm3 (150-450); RBC Distribution Width CV 14.3 % (11.6-14.6); RBC Distribution Width SD 50.3 fl (35.1-43.9); Red Blood Count 2.51 M/mm3 (4.2-5.4); White Blood Count 4.9 K/mm3 (4.4-11.0)
[2024-07-11] MEDS: Ensure Plus High Protein 120 ML LIQUID PO (12:38)
--- NOTE | 2024-07-11 14:10 | DS.PCM_ITS ---
Providers Date of Admission: 07/09/24 Primary Care Physician: Dr. Keren Bustamante MD Reason For Visit: QUENTIN Diagnosis Discharge Diagnosis (1) Acute kidney injury: Status: Acute Code(s): N17.9 - Acute kidney failure, unspecified Plan: Resolved with IVF. suspect prerenal. Creatinine was 0.64 on 05/28/2024. FENa 0.25%. Renal US negative. (2) Myoclonus: Status: Acute Code(s): G25.3 - Myoclonus Plan: I suspect due to QUENTIN and gabapentin use. DC gabapentin for now, resume when kidney function much improved. (3) Transient hypotension: Status: Acute Code(s): I95.9 - Hypotension, unspecified Plan: Likely 2/2 dehydration. Resolved with IVF. Possible adrenal insufficiency given chronic prednisone use. Consider stress-dose steroids if refractory. Plan Chronic conditions: * RA: continue prednisone hydroxychloroquine. * CAD * HTN: hold furosemide and lisinopril given QUENTIN and hypotension * chronic pain: on MSER and percocet (reviewed OARRS). Hold MSER given QUENTIN for now. * pafib: carvedilol as BP allows and anticoagulation with apixaban VTE prophylaxis: not indicated as already on apixaban. DW patient's significant other. Medications at Discharge Home Medications cholecalciferol (vitamin D3) 50 mcg (2,000 unit) tablet (Vitamin D3) 2,000 unit PO DAILY vitamin 12/14/20 folic acid-vit B6-vit B12 2.5 mg-25 mg-1 mg tablet (Folbee) 1 tab PO DAILY supplement 12/14/20 oxycodone-acetaminophen 7.5 mg-325 mg tablet 1 tab PO BID PRN Pain 12/16/20 prednisone 5 mg tablet 5 mg PO DAILY PRN RHEUMATOID ARTHRITIS FLARE 12/16/20 potassium chloride 10 mEq capsule,extended release 10 meq PO DAILY supplement #90 caps 01/08/22 metaxalone 800 mg tablet 400 - 800 mg PO TID PRN muscle spasm 07/17/23 ondansetron 4 mg disintegrating tablet 4 mg PO Q6H PRN nausea and vomiting #15 tabs 07/22/23 apixaban 5 mg tablet (Eliquis) 5 mg PO BID afib #60 tabs 01/21/24 hydroxychloroquine 200 mg tablet 200 mg PO BID itching 04/06/24 metformin 500 mg tablet,extended release 24 hr 500 mg PO DAILY diabetes 04/06/24 paroxetine HCl 30 mg tablet 40 mg PO DAILY depression 04/06/24 sennosides 8.6 mg-docusate sodium 50 mg tablet (Stimulant Laxative Plus) 2 tab PO BID #0 tabs 05/28/24 tizanidine 2 mg tablet 2 mg PO Q6H PRN PRN SPASMS #0 tabs 05/28/24 carvedilol 12.5 mg tablet 12.5 mg PO BID FOR HEART 1 month #60 tabs 05/29/24 atorvastatin 40 mg tablet 40 mg PO QHS cholesterol 07/09/24 esomeprazole magnesium 40 mg capsule,delayed release 40 mg PO BID reflux 07/09/24 famotidine 20 mg tablet 20 mg PO QHS PRN gerd 07/09/24 gabapentin 800 mg tablet 800 mg PO .COMPLEX nueropathy 07/09/24 hydroxyzine pamoate 25 mg capsule 25 - 50 mg PO TID PRN anxiety 07/09/24 methotrexate sodium 25 mg/mL injection solution 15 mg subcut WE 07/09/24 omega-3 acid ethyl esters 1 gram capsule 2 cap PO BID 07/09/24 triamcinolone acetonide 0.1 % topical cream 1 applic topical BID 07/09/24 Saccharomyces boulardii 250 mg capsule (Florastor) 250 mg PO BID probiotic 07/10/24 acetaminophen 500 mg tablet 1,000 mg PO TID PRN PRN pain 07/10/24 clobetasol 0.05 % topical ointment 1 applic topical .COMPLEX itching 07/10/24 cyanocobalamin (vitamin B-12) 500 mcg tablet 500 mcg PO .COMPLEX supplement 07/10/24 diphenhydramine 25 mg-acetaminophen 500 mg tablet (Acetadryl) 1 tab PO QHS PRN sleep 07/10/24 docusate sodium 100 mg capsule 100 mg PO BID constipation 07/10/24 folic acid 1 mg tablet 1 mg PO DAILY supplement 07/10/24 morphine 15 mg tablet,extended release (MS Contin) 15 mg PO TID pain 07/10/24 naloxone 4 mg/actuation nasal spray 1 spray intranasal Q3M PRN overdose 07/10/24 oxybutynin chloride 10 mg tablet,extended release 24 hr 10 mg PO DAILY bladder 07/10/24 polyethylene glycol 3350 17 gram/dose oral powder (Miralax) 17 g PO DAILY PRN constipation 07/10/24 pyridoxine (vitamin B6) 100 mg tablet 100 mg PO .COMPLEX supplement 07/10/24 food supplemt, lactose-reduced 0.08 gram-1.5 kcal/mL oral liquid (Ensure Plus High Protein) 120 ml PO TIDCM #30 mL 07/11/24 Hospital Course Operations None Procedures None Summary of Care Provided Minutes Spent on Discharge: 35 Hospital Course: Patient presents with weakness and myoclonus. Patient had acute kidney injury with a creatinine of 3.97. Her QUENTIN was due to dehydration and that was confirmed with her fractional excretion of sodium. Renal ultrasound was unremarkable. Patient did receive IV fluids and is since improved. Moved before, patient will discontinue her furosemide as well as lisinopril moving forward. But with her QUENTIN, patient developed myoclonus due to buildup of her gabapentin. With correction of her QUENTIN and holding her gabapentin her myoclonus is essentially resolved. I feel the patient can safely resume her gabapentin moving forward. Medical Records Data Medical Nutrition Assessment Dietitian: Malnutrition Criteria Met Start: 07/10/24 13:08 Freq: Status: Active Protocol: Document 07/10/24 13:52 SB (Rec: 07/10/24 13:52 SB [id number]) Nutrition Malnutrition Evidence of Yes Malnutrition Exists Malnutrition (severe Chronic ): Evidenced By Suboptimal Energy Intake (Severe),Weight Loss (Severe) Clinical Problem Chronic Disease or Condition Related Malnutrition Etiology severe related to inadequate oral intake Signs/Symptoms as evidenced by PO meeting <50% of estimated nutrition needs x 3 months and 14% unintentional weight loss x 4 months. Status Active Problem Recommendation Dietitian Adjust to liberal regular diet d/t signs and symptoms Recommendations/ of malnutrition. Changes Continue 120ml ensure plus high protein TID with medpass. Will monitor weight trends. Weight / BMI Weight Weight: 75.3 kg Body Mass Index (BMI) 32.4 ABG / Lab / Microbiology Data 07/11/24 06:28 07/11/24 06:28 Laboratory: Laboratory Results - last 24 hr 07/11/24 06:28: WBC 4.9, RBC 2.51 L, Hgb 7.8 L, Hct 24.1 L, MCV 96.0 D, MCH 31.1, MCHC 32.4 D, RDW Std Deviation 50.3 H, RDW Coeff of Valdemar 14.3, Plt Count 137 L, MPV 8.6, Immature Gran % (Auto) 0.200, Neut % (Auto) 66.2, Lymph % (Auto) 26.3, [place] % (Auto) 7.1, Eos % (Auto) 0.0, Baso % (Auto) 0.2, Absolute Neuts (auto) 3.3, Absolute Lymphs (auto) 1.30, Nucleated RBC % 0, Sodium 138, Potassium 4.2, Chloride 107, Carbon Dioxide 24.8, Anion Gap 7, BUN 24 H, C reatinine 0.56 L, Estim Creat Clear Calc 95.63, Est GFR (MDRD) Non-Af 104, B UN/Creatinine Ratio 42.6 H, Glucose 119 H, Calcium 8.0 Microbiology: Microbiology 07/09/24 15:15 Blood Culture (Wb) - Anticubital Right Blood Culture - Preliminary No growth in 48 hours. 07/09/24 15:01 Blood Culture (Wb) - Anticubital Left Blood Culture - Preliminary No growth in 48 hours. 07/09/24 10:43 Urine, Random Urine Culture - Preliminary Culture exhibits no growth. D/C Instructions Discharge Diet: 2000 Calorie Control Diet DC O2, CPAP, BIPAP Needs Home O2 Discharge instructions: No Meaningful Use Info Meaningful Use Meaningful Use Diagnoses (Choose all that apply): None applicable Ischemic Stroke Statin Dosing Therapy Reference: STATIN DOSE THERAPY REFERENCE: * Patients > 75 years receive moderate or high dose statin therapy. * Patients 75 years or YOUNGER should receive HIGH intensity statin dose unless contraindicated. You will be required to document reason for non-treatment if statin daily dose does not meet guidelines. HIGH DOSE STATIN THERAPY DAILY Atorvastatin > than or = to 40 mg Rosuvastatin > than or = to 20 mg Amlodipine + Atorvastatin > than or = to 2.5/40 mg Ezetimibe + Simvastatin 10/80 mg Simvastatin 80mg Discharge Plan Admission Admit Date/Time: 07/09/24 17:54 Primary Reason for Your Visit: QUENTIN Attending Provider: Jose Reveles Primary Care Provider: Keren Bustamante Consulting Providers: Antonio Ritchie Instructions Additional Instructions / Restrictions: You had acute kidney injury due to dehydration. Going to have you hold your lisinopril and furosemide (Lasix) as I feel that those were contributing to the dehydration. I would like for you to follow with your primary care doctor to have your labs checked make sure your kidney function is remaining stable. You also developed will be called myoclonus (that jerking motions you are having in your arms). That was due to buildup of gabapentin due to the dehydration and acute kidney injury. You may safely resume your gabapentin at your previous dose. Discharge Orders/Prescriptions Prescriptions: New Ensure Plus High Protein 0.08 gram-1.5 kcal/mL Liquid 120 ml PO TIDCM Qty: 30 0RF Continued metaxalone 800 mg tablet 400 - 800 mg PO TID PRN (Reason: muscle spasm) Folbee 2.5-25-1 mg tablet 1 tab PO DAILY Patient Comments: PT UNSURE IF SHE IS TAKING. cholecalciferol (vitamin D3) [Vitamin D3] 50 mcg (2,000 unit) tablet 2,000 unit PO DAILY Patient Comments: PT STATES SHE IS TAKING OTC AND RX, BUT IS NOT SURE WHICH SHE IS TAKING. oxycodone-acetaminophen 7.5-325 mg tablet 1 tab PO BID PRN (Reason: Pain) Patient Comments: PT KNOWS SHE TAKES A PAIN MEDICATION, UNSURE OF WHICH prednisone 5 mg tablet 5 mg PO DAILY PRN (Reason: RHEUMATOID ARTHRITIS FLARE) Patient Comments: PT HAS NOT TAKEN IN AWHILE BUT CAN IF SHE NEEDS TO. ondansetron 4 mg tablet,disintegrating 4 mg PO Q6H PRN (Reason: nausea and vomiting) Qty: 15 0RF hydroxychloroquine 200 mg tablet 200 mg PO BID metformin 500 mg tablet extended release 24 hr 500 mg PO DAILY paroxetine HCl 30 mg tablet 40 mg PO DAILY tizanidine 2 mg Tablet 2 mg PO Q6H PRN PRN (Reason: SPASMS) Qty: 0 0RF sennosides-docusate sodium [Stimulant Laxative Plus] 8.6-50 mg Tablet 2 tab PO BID Qty: 0 0RF Rx Instructions: Dmnh-wed-ldhnjud carvedilol 12.5 mg tablet 12.5 mg PO BID 30 Days Qty: 60 2RF Rx Instructions: must administer with a meal/food methotrexate sodium 25 mg/mL solution 15 mg subcut WE famotidine 20 mg tablet 20 mg PO QHS PRN (Reason: gerd) triamcinolone acetonide 0.1 % cream 1 applic topical BID omega-3 acid ethyl esters 1 gram capsule 2 cap PO BID atorvastatin 40 mg tablet 40 mg PO QHS gabapentin 800 mg tablet 800 mg PO .COMPLEX Rx Instructions: 800 mg orally; TAKE 1.5 TABLETS IN THE MORNING, 1/2 TABLET IN AFTERNOON, AND 1.5 TABLETS IN EVENING.; esomeprazole magnesium 40 MG capsule 40 mg PO BID hydroxyzine pamoate 25 mg capsule 25 - 50 mg PO TID PRN acetaminophen 500 mg tablet 1,000 mg PO TID PRN PRN (Reason: pain) clobetasol 0.05 % ointment 1 applic topical .COMPLEX Rx Instructions: 1 applic topically 2-3x per week; cyanocobalamin (vitamin B-12) 500 mcg tablet 500 mcg PO .COMPLEX Rx Instructions: 500 mcg orally As directed; diphenhydramine-acetaminophen [Acetadryl] 25-500 mg tablet 1 tab PO QHS PRN (Reason: sleep) docusate sodium 100 mg capsule 100 mg PO BID folic acid 1 mg tablet 1 mg PO DAILY morphine [MS Contin] 15 mg tablet extended release 15 mg PO TID oxybutynin chloride 10 mg tablet extended release 24hr 10 mg PO DAILY polyethylene glycol 3350 [Miralax] 17 gram/dose powder 17 g PO DAILY PRN (Reason: constipation) pyridoxine (vitamin B6) 100 mg tablet 100 mg PO .COMPLEX Rx Instructions: 100 mg orally; Saccharomyces boulardii [Florastor] 250 mg capsule 250 mg PO BID naloxone 4 mg/actuation spray,non-aerosol 1 spray intranasal Q3M PRN (Reason: overdose) Rx Instructions: spray 1 dose into ONE nostril; alternate nostrils w each dose until help arrives potassium chloride 10 mEq capsule, extended release 10 meq PO DAILY Qty: 90 3RF Eliquis 5 mg tablet 5 mg PO BID Qty: 60 11RF Discontinued furosemide 40 mg tablet 40 mg PO DAILY PRN (Reason: water pill) lisinopril 5 mg tablet 5 mg PO DAILY Qty: 90 3RF Referrals / Follow Up: Keren Bustamante MD [Primary Care Provider] - Within 2 Weeks Disposition Disposition (needs filled in before D/C Order can be placed): Home Health Service Charges/Coding Visit Charges Inpatient E&M: 23678 Disch Hosp >30min
[2024-07-11 15:03] VITALS: BP 126/65; PULSE 79; RESP 16; TEMP 36.9; O2SAT 96
[2024-07-11 16:09] VITALS: BP 139/77; PULSE 81
== END 2024-07-11 17:17 | disposition home health service (06) | DRG 682 ==
LOC: ED 17:55 → PCU 18:33
PROVIDERS: Admitting Provider Internal Medicine; Emergency Provider Emergency Medicine; PCP Internal Medicine; Referring Provider Emergency Medicine
DX: N17.9 Acute kidney failure, unspecified (principal); E43 Unspecified severe protein-calorie malnutrition; E27.40 Unspecified adrenocortical insufficiency; G25.3 Myoclonus; E11.40 Type 2 diabetes mellitus with diabetic neuropathy, unspecified; I48.0 Paroxysmal atrial fibrillation; M06.9 Rheumatoid arthritis, unspecified; I10 Essential (primary) hypertension; F32.A Depression, unspecified; I25.10 Atherosclerotic heart disease of native coronary artery without angina pectoris; E78.5 Hyperlipidemia, unspecified; K21.9 Gastro-esophageal reflux disease without esophagitis; F41.9 Anxiety disorder, unspecified; G89.4 Chronic pain syndrome; Z87.891 Personal history of nicotine dependence; Z79.01 Long term (current) use of anticoagulants; Z79.84 Long term (current) use of oral hypoglycemic drugs; Z79.899 Other long term (current) drug therapy; Z68.29 Body mass index [BMI] 29.0-29.9, adult
CPT/HCPCS: 36415; 51702; 70450; 71045; 76770; 80048; 80053; 81001; 82248; 82570; 83605; 83735; 84100; 84300; 84443; 85025; 85610; 85730; 87040; 87086; 93005; 93306; 94762; 97162; 97166; 97535; 97802; 99285; Q9957; A4216; C8929

== ENCOUNTER 2024-07-13 12:41 | Inpatient (IN) | payer MEDICARE, MEDICAID, SELFPAY ==
[2021-03-31 10:10] VITALS: BMI 34.4
[2024-07-13] VITALS (7 sets, daily range): BP systolic 111–169; BP diastolic 47–86; PULSE 68–108; RESP 18–21; TEMP 36.6–36.9; O2SAT 94–97; BMI 31.6; BMI 30.4
--- NOTE | 2024-07-13 13:21 | EKG12_ITS ---
Test Reason : FALL Blood Pressure : */* mmHG Vent. Rate : 97 BPM Atrial Rate : 97 BPM P-R Int : 124 ms QRS Dur : 74 ms QT Int : 408 ms P-R-T Axes : 10 33 42 degrees QTcB Int : 518 ms Sinus rhythm with Premature atrial complexes Nonspecific ST abnormality Prolonged QT Abnormal ECG When compared with ECG of 09-Jul-2024 14:37, Premature atrial complexes are now Present T wave amplitude has increased in Anterior leads Confirmed by JOANNE WOLFE, ARABELLA ([id number]), food expeditor TORI KAM ([id number]) on 07/15/2024 12:57:57 PM Referred By: Eladio Matute Confirmed By: ARABELLA RUBOI MD
[2024-07-13 13:27] LABS: Absolute Lymphocyte Count 1.25 X10^3/uL (0.83-4.51); Absolute Neutrophil Count 5.5 X10^3/uL (2.0-7.7); Hematocrit 29.8 % (37-47); Hemoglobin 10.2 g/dL (12.0-15.0); Lymphocyte # 1.25 X10^3/ul (0.83-4.51); Lymphocyte % 16.8 % (19-41); Mean Corp Hgb Conc 34.2 g/dL (32-36); Mean Corpuscular Hgb 31.7 pg (27.0-32.0); Mean Corpuscular Volume 92.5 fL (81-99); Mean Platelet Vol. 8.9 fl (6.2-12.0); Monocyte# 0.68 X10^3/uL; Monocyte% 9.2 % (0-10); NRBC Flagged by Analyzer 0 % (0-5); Neutrophil # 5.45 X10^3/uL (2.7-7.7); Neutrophil % 73.3 % (47-70); Platelet Count 155 K/mm3 (150-450); RBC Distribution Width CV 14.3 % (11.6-14.6); RBC Distribution Width SD 47.8 fl (35.1-43.9); Red Blood Count 3.22 M/mm3 (4.2-5.4); White Blood Count 7.4 K/mm3 (4.4-11.0)
[2024-07-13] MEDS: 0.9% Normal Saline (1000mL) 1,000 ML 999 ML IV ×2 (13:51→18:23)
[2024-07-13] MEDS: Ondansetron 4 MG/2 ML Vial IV ×2 (13:51→21:36)
[2024-07-13 13:56] LABS: Anion Gap 12 (5-15); BUN 7 mg/dL (4-19); BUN/Creat Ratio 13.5 RATIO (10-20); Calcium,Total 8.6 mg/dL (7.6-11.0); Carbon Dioxide 26.6 mmol/L (21.0-32.0); Chloride 101 mmol/L (98-108); Creatinine, Serum 0.55 mg/dL (0.70-1.20); EST Glomerular Filtration Rate 104 (>60); Estimated Creatinine Clearance 104.29 ml/min (50-250); Glucose 118 mg/dL (70-99); Potassium 3.2 mmol/L (3.3-5.1); Sodium Level 140 mmol/L (133-145)
--- NOTE | 2024-07-13 14:15 | ED.RN ---
pt requesting gerardo be called since no one knows shes here. no aswer. pt gave verbal consent to call her sister aaron. got annel of aaron and let her know that she had fallen and was here.
--- NOTE | 2024-07-13 14:20 | CT_ITS ---
EXAM: BRAIN/HEAD WITHOUT CONTRAST CLINICAL HISTORY: FALL, TRAUMA COMPARISON: Head CT of 07/09/2024 TECHNIQUE: CT head without contrast, with sagittal and coronal reconstructed images FINDINGS: No intracranial hemorrhage, mass, or mass effect is seen. No extra-axial fluid collection is noted. Stable mild generalized cerebral atrophy. Bilateral cerebral white matter hypodensities appear similar to the prior study, and are most consistent with chronic ischemic changes of small-vessel disease. No orbital pathology is seen. The visualized paranasal sinuses and mastoid air cells appear clear. CT/Brain/Head without Contrast IMPRESSION: Stable examination, without intracranial hemorrhage or other acute process seen . Reading Location: [id number]
--- NOTE | 2024-07-13 14:20 | CT_ITS ---
PROCEDURE: SPINE CERVICAL WITHOUT CONTRAS 07/13/2024 REASON FOR EXAM: FALL, TRAUMA TECHNIQUE: Cervical spine CT without contrast. Coronal and Sagittal reconstruction series were provided. One or more dose reduction techniques were used (e.g., Automated exposure control, adjustment of the mA and/or kV according to patient size, use of iterative reconstruction technique COMPARISON: None. RADIATION DOSE SUMMARY: CTDlvol: 23.09 mGy DLP: 493.87 mGycm (not including concurrent CT head reported separately). FINDINGS: C5-C6 ACDF with mild associated artifact. Question a nondisplaced manubrial fracture versus motion artifact. No cervical spinal fracture or acute malalignment identified. Trace likely degenerative anterolisthesis at C4-C5. Mild cervicothoracic levoscoliosis. Demineralization. Overall moderate multilevel spondylosis including ankylosis of the left C5-C6 facets. Variable bony spinal canal stenoses up to at least mild/moderate at C6-C7. Variable bony foraminal stenoses, up to severe on the right at C3-C4 and C4-C5. Mild patchy ground-glass opacities suggested in the lung apices, not well evaluated due to motion. Precarinal node measures [address]/Spine Cervical without Contras IMPRESSION: 1. Question a nondisplaced manubrial fracture versus motion artifact. Correlat e with point tenderness. 2. Demineralization without acute cervical spinal fracture identified. 3. Findings in the lung apices which may reflect pneumonia/pneumonitis or perha ps mild pulmonary edema, partially imaged and not well evaluated due to motion. Correlate with presentation and consider dedicat ed imaging of the chest. 4. Mild upper mediastinal lymphadenopathy, nonspecific and potentially reactive in the absence of known malignancy. Correlate with medical history and recommend follow-up CT chest, ideally with IV contrast , possibly on an outpatient basis depending on presentation. 5. Additional description as above. Reading Location: [id number]
[2024-07-13 14:47] LABS: Lipase 88 U/L (13-75)
[2024-07-13 14:49] LABS: Bacteria 0 SEEN /hpf (None Seen); Mucous, Urine 0 SEEN /hpf (<or=2+); Squamous Epithelial Cells - UA 0 SEEN /hpf (5-10)
[2024-07-13 15:04] LABS: Color, Urine Yellow (Yellow); Glucose, Dipstick Normal (Normal); Ketone-Dipstick 50 mg/dl (Negative); Leukocyte Esterase-Dipstick Negative /ul (Negative); Nitrite-Dipstick Negative (Negative); Occult Blood-Urine 25 /ul (Negative); Protein-Dipstick 30 mg/dl (Negative); Specific Gravity, Urine 1.015 (1.002-1.030); Urine Bilirubin Dipstick Negative (Negative); Urine Clarity Clear (Clear); Urine Urobilinogen Normal (Normal)
--- NOTE | 2024-07-13 15:19 | CT_ITS ---
PROCEDURE: CHEST WITHOUT CONTRAST 07/13/2024 REASON FOR EXAM: CHEST WALL PAIN, POSSIBLE MANUBRIAL FRACTURE TECHNIQUE: CT chest was performed without IV contrast. Multiplanar reformats were generated. One or more dose reduction techniques were used (e.g., Automated exposure control, adjustment of the mA and/or kV according to patient size, use of iterative reconstruction technique COMPARISON: CT spine of same date.. RADIATION DOSE SUMMARY: CTDlvol: 16.90 mGy DLP: 578.70 mGycm FINDINGS: Note that evaluation of the vasculature, ovi, and soft tissues is limited in the absence of IV contrast. Motion limitation through the lung bases and upper abdomen. Heart/pericardium: Advanced three-vessel coronary atherosclerosis and/or stents. Mild aortic and trace mitral annular calcification. Trace pericardial fluid. Aorta: Mild atherosclerosis. Pulmonary arteries: Normal in caliber. Lymph nodes: Precarinal node, 16 millimeter short axis. Subcarinal nodes up to 13 millimeter short axis.. Lungs/pleura: Scattered ill-defined vaguely nodular ground-glass and mild consolidative opacities throughout all lobes, most considerable within the right middle lobe and right lower lobe as well as the left lower lobe. Mild interlobular septal thickening. Trace to small left and small right pleural effusions. Airways: Unremarkable. Chest wall: Unremarkable. Upper abdomen: Grossly unremarkable. Musculoskeletal: Marked demineralization. Multilevel spondylosis. Mild scoliosis. Multilevel compression deformities greatest in the mid and lower thoracic spine, grossly similar to 04/06/2024 although difficult to directly compare given profound demineralization and difficulty visualizing vertebral bodies on the lateral view previously. An L1 compression deformity was not included within the field of view previously. Cervical spine better depicted on separately dictated CT. Subacute appearing left lateral 7th and right anterior 6th rib fractures. Lower thoracic laminectomy. CT/Chest without Contrast IMPRESSION: 1. Subacute appearing left lateral 7th and right anterior 6th rib fractures cou ld be a source of chest wall pain. Correlate with patient history and the location of point tenderness. No definite manubrial fr acture. 2. Marked demineralization with multilevel mid and lower thoracic spinal verteb ral body decompression deformities, grossly similar to chest radiograph of 04/06/2024 although difficult to visualize at so me levels at that time due to profound demineralization. An L1 compression deformity is also age indeterminate and wa s not included in the field of view previously to evaluate chronicity. Correlate with history and point tenderness. 3. Multifocal vaguely nodular ground-glass and mild consolidative opacities wit h interlobular septal thickening. Findings may reflect atypical pneumonia/pneumonitis with or without superimposed pulmonary e mp. Recommend follow-up CT chest in 3 months to document stability or resolution. 4. Mild mediastinal lymphadenopathy, nonspecific and potentially reactive in th e absence of known malignancy. Correlate with medical history and recommend attention on above recommended follow-up. 5. Trace to small left and small right pleural effusions. 6. Additional description as above. Reading Location: [id number]
[2024-07-13 15:27] LABS: Red Blood Cells-Urine 0-5 SEEN /hpf (0-5); White Blood Cells 0-5 SEEN /hpf (0-5)
--- NOTE | 2024-07-13 15:58 | EX.ED.DYSGE1 ---
HPI History of Present Illness Chief Complaint: Fall Informant: patient Narrative Narrative: Patient is a 63-year-old female presenting with fall, head injury, weakness, nausea, vomiting and diarrhea. Patient is chronically anticoagulated because of atrial fibrillation on Eliquis. She states she fell today hitting her head. Is not clear if she lost consciousness. Patient is a poor historian states she is not feeling good today has been throwing up. She is been having a lot of diarrhea. Is not sure if she is having blood in her vomit or her stool. Yesterday she was also not feeling good. She is been having hot and cold chills, sore throats and. After the fall she is complaining of pain in the middle of her chest more in her epigastric region. Chart review shows that patient was admitted from 07/09 through 07/11 for mild Clinisync to be secondary to QUENTIN gabapentin use. Gabapentin was DC'd. She also had transient hypotension likely secondary to dehydration. Does have a history of chronic prednisone use. She takes this for rheumatoid arthritis as well as hydroxychloroquine. [facility] Medical History History of left heart catheterization (LHC) (~11/22/21) Atherosclerotic heart disease of [place] coronary artery without angina pectoris Abnormal stress test Decreased left ventricular function Essential hypertension Hyperlipidemia Former smoker Acute coronary syndrome Injury of fifth cervical spinal cord Spinal cord stimulator status Chronic pain Arthritis Depression GERD (gastroesophageal reflux disease) Insomnia Neuropathic pain Rheumatoid arthritis Morbid obesity Debility Home Medications ?Medication ?Instructions ?Recorded ?Last Taken ?Type cholecalciferol (vitamin D3) 50 2,000 unit PO DAILY vitamin 12/14/20 07/09/24 History mcg (2,000 unit) tablet (Vitamin D3) folic acid-vit B6-vit B12 2.5 1 tab PO DAILY supplement 12/14/20 12/14/20 09:00 History mg-25 mg-1 mg tablet (Folbee) oxycodone-acetaminophen 7.5 mg-325 1 tab PO BID PRN Pain 12/16/20 Unknown History mg tablet prednisone 5 mg tablet 5 mg PO DAILY PRN RHEUMATOID 12/16/20 Unknown History ARTHRITIS FLARE potassium chloride 10 mEq 10 meq PO DAILY supplement #90 caps 01/08/22 07/09/24 Rx capsule,extended release metaxalone 800 mg tablet 400 - 800 mg PO TID PRN muscle 07/17/23 07/09/24 History spasm ondansetron 4 mg disintegrating 4 mg PO Q6H PRN nausea and 07/22/23 Unknown Rx tablet vomiting #15 tabs apixaban 5 mg tablet (Eliquis) 5 mg PO BID afib #60 tabs 01/21/24 07/09/24 Rx hydroxychloroquine 200 mg tablet 200 mg PO BID itching 04/06/24 07/09/24 History metformin 500 mg tablet,extended 500 mg PO DAILY diabetes 04/06/24 07/09/24 History release 24 hr paroxetine HCl 30 mg tablet 40 mg PO DAILY depression 04/06/24 Unknown History sennosides 8.6 mg-docusate sodium 2 tab PO BID #0 tabs 05/28/24 07/08/24 Rx 50 mg tablet (Stimulant Laxative Plus) tizanidine 2 mg tablet 2 mg PO Q6H PRN PRN SPASMS #0 tabs 05/28/24 07/06/24 Rx carvedilol 12.5 mg tablet 12.5 mg PO BID FOR HEART 1 month 05/29/24 07/09/24 Rx #60 tabs atorvastatin 40 mg tablet 40 mg PO QHS cholesterol 07/09/24 07/08/24 History esomeprazole magnesium 40 mg 40 mg PO BID reflux 07/09/24 07/09/24 History capsule,delayed release famotidine 20 mg tablet 20 mg PO QHS PRN gerd 07/09/24 07/08/24 History gabapentin 800 mg tablet 800 mg PO .COMPLEX nueropathy 07/09/24 07/09/24 History hydroxyzine pamoate 25 mg capsule 25 - 50 mg PO TID PRN anxiety 07/09/24 07/09/24 History methotrexate sodium 25 mg/mL 15 mg subcut WE 07/09/24 07/08/24 History injection solution omega-3 acid ethyl esters 1 gram 2 cap PO BID 07/09/24 Unknown History capsule triamcinolone acetonide 0.1 % 1 applic topical BID 07/09/24 Unknown History topical cream Saccharomyces boulardii 250 mg 250 mg PO BID probiotic 07/10/24 Unknown History capsule (Florastor) acetaminophen 500 mg tablet 1,000 mg PO TID PRN PRN pain 07/10/24 Unknown History clobetasol 0.05 % topical ointment 1 applic topical .COMPLEX itching 07/10/24 Unknown History cyanocobalamin (vitamin B-12) 500 500 mcg PO .COMPLEX supplement 07/10/24 Unknown History mcg tablet diphenhydramine 25 1 tab PO QHS PRN sleep 07/10/24 Unknown History mg-acetaminophen 500 mg tablet (Acetadryl) docusate sodium 100 mg capsule 100 mg PO BID constipation 07/10/24 Unknown History folic acid 1 mg tablet 1 mg PO DAILY supplement 07/10/24 Unknown History morphine 15 mg tablet,extended 15 mg PO TID pain 07/10/24 Unknown History release (MS Contin) naloxone 4 mg/actuation nasal spray 1 spray intranasal Q3M PRN overdose 07/10/24 Unknown History oxybutynin chloride 10 mg 10 mg PO DAILY bladder 07/10/24 Unknown History tablet,extended release 24 hr polyethylene glycol 3350 17 17 g PO DAILY PRN constipation 07/10/24 Unknown History gram/dose oral powder (Miralax) pyridoxine (vitamin B6) 100 mg 100 mg PO .COMPLEX supplement 07/10/24 Unknown History tablet food supplemt, lactose-reduced 120 ml PO TIDCM #30 mL 07/11/24 Unknown Rx 0.08 gram-1.5 kcal/mL oral liquid (Ensure Plus High Protein) Allergy/AdvReac Type Severity Reaction Status Date / Time adhesive Allergy blisters Verified 07/09/24 14:18 codeine AdvReac Nausea Verified 07/09/24 14:18 Family History Father CAD (coronary artery disease) Other Heart disease Surgical History History of appendectomy Previous back surgery Social History household members: spouse housing: apartment Smoking Status: Former smoker ROS ROS ED Constitutional Constitutional ED: Reports chills; Denies fever(s) ENT ENT ED: Reports sore throat; Denies rhinorrhea Cardiovascular Cardiovascular: Reports chest pain; Denies palpitations Respiratory/Chest Respiratory/Chest: Denies cough or dyspnea Gastrointestinal Gastrointestinal: Reports diarrhea, nausea and vomiting; Denies abdominal pain Musculoskeletal Musculoskeletal: Reports myalgias Integumentary Reports Abrasions; Denies rash Neurologic Neurologic: Reports headache(s) and weakness; Denies paresthesias Hematologic/Lymphatic Hematologic/Lymphatic: Reports easy bleeding, easy bruising and other Details: on Eliquis EXAM Physical Exam Const Vital Signs: 07/13/24 12:42 07/13/24 12:47 07/13/24 13:46 Temperature 98.5 F 98.2 F Temperature Source Temporal Oral Pulse Rate 68 98 Respiratory Rate 18 19 H Respiratory Effort Normal Blood Pressure 156/80 H 160/79 H Blood Pressure Mean 105 106 Pulse Ox 94 95 Oxygen Delivery Method Room Air Room Air Room Air 07/13/24 15:48 07/13/24 17:04 Temperature 98.2 F Temperature Source Pulse Rate 108 H 78 Respiratory Rate 21 H 18 Respiratory Effort Blood Pressure 147/47 H 111/78 Blood Pressure Mean 80 89 Pulse Ox 95 97 Oxygen Delivery Method Room Air Positive unkempt General Appearance ED: unkempt and NAD HEENT Reports TM's clear and dry mucous membranes HEENT Narrative: Ecchymosis to the left forehead. No hematoma appreciated. Very dry chapped lips with very dry mucosal membranes. Tympanic Membrane ED: Yes TM's clear Mouth ED: Yes dry mucous membranes Mouth: dry mucous membranes Eyes PERRL and EOMs intact bilaterally General Eye ED: Negative for scleral icterus Neck supple Neck Narrative: No midline tenderness. Chest Wall inspection of chest normal Chest Narrative: No chest wall crepitus. Significant pain with palpation of the sternum most pronounced at the lower aspect/xiphoid process. Resp normal respiratory effort and clear to auscultation bilaterally Cardio regular rhythm Rate: tachycardic GI normal to inspection, nondistended, normoactive bowel sounds and non-tender Auscultation: hyperactive bowel sounds Extremity normal to inspection General Extremety ED: Negative for edema or tenderness General Extremity: Negative for edema Neuro Sensorium / Orientation: alert and orientation impaired Motor Exam: general weakness Psych Appearance: unkempt Skin no wounds Rashes: No rashes noted MDM MDM MDM Narrative Medical decision making narrative: Patient evaluated for generalized weakness, vomiting, diarrhea and head injury. She is on Eliquis. Clinically sinus patient has signs of head trauma and appears dehydrated. Differential includes intracranial hemorrhage, skull fracture, encephalopathy, QUENTIN, urinary tract infection, sternal fracture, pancreatitis, choledocholithiasis, gastroenteritis, C. difficile. Chart review shows the patient had a recent hospitalization was just charged 2 days ago for encephalopathy and QUENTIN. Creatinine at time of admission was 3.97 with a baseline of 0.6 and at discharge her creatinine was 0.56. CBC shows a significant increase in her hemoglobin at 10.2 suspect this is hemoconcentration. Baseline appears closer to 7 or 8. Platelets are normal. Lactate is normal. Urinalysis consistent with dehydration with 50 ketones but not consistent with infection. She does have an elevation of her high-sensitivity troponin at 80. No baseline troponin T but her most recent troponin I was normal. This was obtained as patient is complaining of chest pain and had a questionable manubrial fracture noted on CT of the neck. CT of the chest was added on for further evaluation of the sternum and for traumatic injury given she is complaining of pain. EKG does not show any acute ischemia but does show new prolonged QTc. CT brain and cervical spine did not show any acute traumatic injury. CT of the chest showed subacute appearing left lateral seventh and right anterior sixth rib fractures. This would be consistent with her falls. She also has atypical findings of pneumonitis and mediastinal lymphadenopathy. Patient continues have diarrhea emergency room stool studies are sent. She has hypomagnesia and hypokalemia which is consistent with diarrhea. Patient be admitted to the hospital for IV fluids (cycling of IV fluids as ordered) and electrolyte replacement. After discussion with hospitalist CT of the abdomen pelvis will also be added on. Patient is agreeable with this plan of care. Patient henrique hemodynamically stable at this time. She does have an elevation of her high-sensitivity troponin but EKG does not show acute ischemic changes. Will continue to monitor. Lab Data Attestation: I reviewed the patient's lab results. Labs: Laboratory Results - last 24 hr 07/13/24 07/13/24 07/13/24 13:00 13:55 14:15 WBC 7.4 RBC 3.22 L Hgb 10.2 L Hct 29.8 L MCV 92.5 MCH 31.7 MCHC 34.2 D RDW Std Deviation 47.8 H RDW Coeff of Valdem[place] 14.3 Plt Count 155 MPV 8.9 Immature Gran % (Auto) 0.700 Neut % (Auto) 73.3 H Lymph % (Auto) 16.8 L [place] % (Auto) 9.2 Eos % (Auto) 0.0 Baso % (Auto) 0.0 Absolute Neuts (auto) 5.5 Absolute Lymphs (auto) 1.25 Nucleated RBC % 0 Sodium 140 Potassium 3.2 L Chloride 101 Carbon Dioxide 26.6 Anion Gap 12 BUN 7 Creatinine 0.55 L Estim Creat Clear Calc 104.29 Est GFR (MDRD) Non-Af 104 BUN/Creatinine Ratio 13.5 Glucose 118 H Lactic Acid 1.0 Calcium 8.6 Magnesium 1.2 L Troponin T High Sens 80 H* Lipase 88 H Urine Color Yellow Urine Clarity Clear Urine pH 6.0 Ur Specific [place] 1.015 Urine Protein 30 H Urine Glucose (UA) Normal Urine Ketones 50 H Urine Occult Blood 25 H Urine Nitrite Negative Urine Bilirubin Negative Urine Urobilinogen Normal Ur Leukocyte Esterase Negative Urine RBC 0-5 SEEN Urine WBC 0-5 SEEN Ur Squamous Epith Cells 0 SEEN Urine Bacteria 0 SEEN Urine Mucus 0 SEEN Radiography Diagnostic Testing: Clinical Impression(s) from Imaging Studies Brain CT 07/13/24 14:20 IMPRESSION: Stable examination, without intracranial hemorrhage or other acute process seen. Reading Location: [address] Cervical Spine CT 07/13/24 14:20 IMPRESSION: 1. Question a nondisplaced manubrial fracture versus motion artifact. Correlate with point tenderness. 2. Demineralization without acute cervical spinal fracture identified. 3. Findings in the lung apices which may reflect pneumonia/pneumonitis or perhaps mild pulmonary edema, partially imaged and not well evaluated due to motion. Correlate with presentation and consider dedicated imaging of the chest. 4. Mild upper mediastinal lymphadenopathy, nonspecific and potentially reactive in the absence of known malignancy. Correlate with medical history and recommend follow-up CT chest, ideally with IV contrast, possibly on an outpatient basis depending on presentation. 5. Additional description as above. Reading Location: [facility] Chest CT 07/13/24 15:19 IMPRESSION: 1. Subacute appearing left lateral 7th and right anterior 6th rib fractures could be a source of chest wall pain. Correlate with patient history and the location of point tenderness. No definite manubrial fracture. 2. Marked demineralization with multilevel mid and lower thoracic spinal vertebral body decompression deformities, grossly similar to chest radiograph of 04/06/2024 although difficult to visualize at some levels at that time due to profound demineralization. An L1 compression deformity is also age indeterminate and was not included in the field of view previously to evaluate chronicity. Correlate with history and point tenderness. 3. Multifocal vaguely nodular ground-glass and mild consolidative opacities with interlobular septal thickening. Findings may reflect atypical pneumonia/pneumonitis with or without superimposed pulmonary edema. Recommend follow-up CT chest in 3 months to document stability or resolution. 4. Mild mediastinal lymphadenopathy, nonspecific and potentially reactive in the absence of known malignancy. Correlate with medical history and recommend attention on above recommended follow-up. 5. Trace to small left and small right pleural effusions. 6. Additional description as above. Reading Location: [facility] Rhythm Strip Rhythm Strip: Sinus Rhythm Rate: 97 Ectopy: None EKG Initial EKG: Attestation: I personally reviewed and interpreted this EKG as follows: Interpretation: Sinus Rhythm Comments: Normal sinus rhythm at a rate of 97 bpm with PACs Normal axis Nonspecific ST abnormalities QTc prolonged at 518 Compared to prior EKG patient now has a prolonged QTc Management Discussion w/another healthcare provider: Hospitalist Discharge Plan Triage Chief Complaint: Fall ED Provider: Korina Guzmán Dx/Rx/DC Orders Clinical Impression: Diarrhea, Closed head injury, Anticoagulant long-term use, Hypomagnesemia, Hypokalemia, Elevated troponin, Dehydration Prescriptions: No Action metaxalone 800 mg tablet 400 - 800 mg PO TID PRN (Reason: muscle spasm) Folbee 2.5-25-1 mg tablet 1 tab PO DAILY Patient Comments: PT UNSURE IF SHE IS TAKING. cholecalciferol (vitamin D3) [Vitamin D3] 50 mcg (2,000 unit) tablet 2,000 unit PO DAILY Patient Comments: PT STATES SHE IS TAKING OTC AND RX, BUT IS NOT SURE WHICH SHE IS TAKING. oxycodone-acetaminophen 7.5-325 mg tablet 1 tab PO BID PRN (Reason: Pain) Patient Comments: PT KNOWS SHE TAKES A PAIN MEDICATION, UNSURE OF WHICH prednisone 5 mg tablet 5 mg PO DAILY PRN (Reason: RHEUMATOID ARTHRITIS FLARE) Patient Comments: PT HAS NOT TAKEN IN AWHILE BUT CAN IF SHE NEEDS TO. ondansetron 4 mg tablet,disintegrating 4 mg PO Q6H PRN (Reason: nausea and vomiting) Qty: 15 0RF hydroxychloroquine 200 mg tablet 200 mg PO BID metformin 500 mg tablet extended release 24 hr 500 mg PO DAILY paroxetine HCl 30 mg tablet 40 mg PO DAILY tizanidine 2 mg Tablet 2 mg PO Q6H PRN PRN (Reason: SPASMS) Qty: 0 0RF sennosides-docusate sodium [Stimulant Laxative Plus] 8.6-50 mg Tablet 2 tab PO BID Qty: 0 0RF Rx Instructions: [id number] carvedilol 12.5 mg tablet 12.5 mg PO BID 30 Days Qty: 60 2RF Rx Instructions: must administer with a meal/food methotrexate sodium 25 mg/mL solution 15 mg subcut WE famotidine 20 mg tablet 20 mg PO QHS PRN (Reason: gerd) triamcinolone acetonide 0.1 % cream 1 applic topical BID omega-3 acid ethyl esters 1 gram capsule 2 cap PO BID atorvastatin 40 mg tablet 40 mg PO QHS gabapentin 800 mg tablet 800 mg PO .COMPLEX Rx Instructions: 800 mg orally; TAKE 1.5 TABLETS IN THE MORNING, 1/2 TABLET IN AFTERNOON, AND 1.5 TABLETS IN EVENING.; esomeprazole magnesium 40 MG capsule 40 mg PO BID hydroxyzine pamoate 25 mg capsule 25 - 50 mg PO TID PRN acetaminophen 500 mg tablet 1,000 mg PO TID PRN PRN (Reason: pain) clobetasol 0.05 % ointment 1 applic topical .COMPLEX Rx Instructions: 1 applic topically 2-3x per week; cyanocobalamin (vitamin B-12) 500 mcg tablet 500 mcg PO .COMPLEX Rx Instructions: 500 mcg orally As directed; diphenhydramine-acetaminophen [Acetadryl] 25-500 mg tablet 1 tab PO QHS PRN (Reason: sleep) docusate sodium 100 mg capsule 100 mg PO BID folic acid 1 mg tablet 1 mg PO DAILY morphine [MS Contin] 15 mg tablet extended release 15 mg PO TID oxybutynin chloride 10 mg tablet extended release 24hr 10 mg PO DAILY polyethylene glycol 3350 [Miralax] 17 gram/dose powder 17 g PO DAILY PRN (Reason: constipation) pyridoxine (vitamin B6) 100 mg tablet 100 mg PO .COMPLEX Rx Instructions: 100 mg orally; Saccharomyces boulardii [Florastor] 250 mg capsule 250 mg PO BID naloxone 4 mg/actuation spray,non-aerosol 1 spray intranasal Q3M PRN (Reason: overdose) Rx Instructions: spray 1 dose into ONE nostril; alternate nostrils w each dose until help arrives Ensure Plus High Protein 0.08 gram-1.5 kcal/mL Liquid 120 ml PO TIDCM Qty: 30 0RF potassium chloride 10 mEq capsule, extended release 10 meq PO DAILY Qty: 90 3RF Eliquis 5 mg tablet 5 mg PO BID Qty: 60 11RF Primary Care Provider: Keren Bustamante Referrals: Keren Bustamante MD [Primary Care Provider] - Print Language: [place]
[2024-07-13 15:59] LABS: Magnesium 1.2 mg/dL (1.5-2.2)
[2024-07-13] MEDS: Metoclopramide 10 MG/2 ML Vial 5 MG IV (16:10)
[2024-07-13 16:30] LABS: Troponin T High Sensitivity 80 ng/L (<=14)
--- NOTE | 2024-07-13 17:17 | PCM.HP.STD ---
HPI - General General Date of Admission: 07/13/24 Date of Service: 07/13/24 Chief Complaint: Nausea/vomiting/diarrhea with presyncopal symptoms and fall HPI Narrative PARADISE FAUST, is a 63 F who presented to [facility] ED on 07/13/2024 with 2-day history of nausea/vomiting/diarrhea leading to presyncopal symptoms with a fall at home. Patient was recently hospitalized here from 07/09-07/11. She presented with dehydration and arm twitching and was found to have a severe QUENTIN along with hypotension in the ED. It was suspected that the twitching was myoclonus secondary to her gabapentin. Blood pressure improved significantly with IV fluids and creatinine returned to baseline, and she was able to be discharged home. Patient notes that shortly after returning home she began to have nausea with some episodes of vomiting and then profuse diarrhea. She has continued to have significant diarrhea over the past 2 days with minimal p.o. intake. She then developed presyncopal symptoms and had a fall at home onto her front right chest which prompted this ED visit. On arrival to the ED she was hypertensive to the 150s systolic but was tachycardic to the 100s. Labs notable for potassium 3.2, magnesium 1.2, phosphorus 1.9. CBC and BMP appeared hemoconcentrated from labs from 07/11. CT chest abdomen pelvis without contrast showed subacute appearing left lateral seventh and right anterior sixth rib fractures along with findings consistent with osteoporosis and multifocal nodular groundglass and mild consolidative opacities concerning for atypical pneumonia versus pneumonitis, along with mild mediastinal lymphadenopathy and small bilateral pleural effusions. She was given 2 L of IV fluids with some improvement in her heart rate. She did have 2 more episodes of loose bowel movements in the ED and stool sample was collected. Given all of these findings, hospitalist was then contacted for admission. I saw the patient at bedside in the ED, was present. Patient was mildly uncomfortable appearing due to ongoing abdominal discomfort and nausea and also anxious appearing. She did have a small episode of diarrhea during my short encounter with her. She notes that she has never had profuse diarrhea like this before. She denies any fevers or chills. She does report right-sided anterior chest pain as well which is the area where she fell on today. No other acute concerns this time. COUNTS INCLUDE 234 BEDS AT THE [facility] Medical History History of left heart catheterization (LHC) (~11/22/21) Atherosclerotic heart disease of [place] coronary artery without angina pectoris Abnormal stress test Decreased left ventricular function Essential hypertension Hyperlipidemia Former smoker Acute coronary syndrome Injury of fifth cervical spinal cord Spinal cord stimulator status Chronic pain Arthritis Depression GERD (gastroesophageal reflux disease) Insomnia Neuropathic pain Rheumatoid arthritis Morbid obesity Debility Home Medications ?Medication ?Instructions ?Recorded ?Last Taken ?Type cholecalciferol (vitamin D3) 50 2,000 unit PO DAILY vitamin 12/14/20 07/09/24 History mcg (2,000 unit) tablet (Vitamin D3) folic acid-vit B6-vit B12 2.5 1 tab PO DAILY supplement 12/14/20 12/14/20 09:00 History mg-25 mg-1 mg tablet (Folbee) oxycodone-acetaminophen 7.5 mg-325 1 tab PO BID PRN Pain 12/16/20 Unknown History mg tablet prednisone 5 mg tablet 5 mg PO DAILY PRN RHEUMATOID 12/16/20 Unknown History ARTHRITIS FLARE potassium chloride 10 mEq 10 meq PO DAILY supplement #90 caps 01/08/22 07/09/24 Rx capsule,extended release metaxalone 800 mg tablet 400 - 800 mg PO TID PRN muscle 07/17/23 07/09/24 History spasm ondansetron 4 mg disintegrating 4 mg PO Q6H PRN nausea and 07/22/23 Unknown Rx tablet vomiting #15 tabs apixaban 5 mg tablet (Eliquis) 5 mg PO BID afib #60 tabs 01/21/24 07/09/24 Rx hydroxychloroquine 200 mg tablet 200 mg PO BID itching 04/06/24 07/09/24 History metformin 500 mg tablet,extended 500 mg PO DAILY diabetes 04/06/24 07/09/24 History release 24 hr paroxetine HCl 30 mg tablet 40 mg PO DAILY depression 04/06/24 Unknown History sennosides 8.6 mg-docusate sodium 2 tab PO BID #0 tabs 05/28/24 07/08/24 Rx 50 mg tablet (Stimulant Laxative Plus) tizanidine 2 mg tablet 2 mg PO Q6H PRN PRN SPASMS #0 tabs 05/28/24 07/06/24 Rx carvedilol 12.5 mg tablet 12.5 mg PO BID FOR HEART 1 month 05/29/24 07/09/24 Rx #60 tabs atorvastatin 40 mg tablet 40 mg PO QHS cholesterol 07/09/24 07/08/24 History esomeprazole magnesium 40 mg 40 mg PO BID reflux 07/09/24 07/09/24 History capsule,delayed release famotidine 20 mg tablet 20 mg PO QHS PRN gerd 07/09/24 07/08/24 History gabapentin 800 mg tablet 800 mg PO .COMPLEX nueropathy 07/09/24 07/09/24 History hydroxyzine pamoate 25 mg capsule 25 - 50 mg PO TID PRN anxiety 07/09/24 07/09/24 History methotrexate sodium 25 mg/mL 15 mg subcut WE 07/09/24 07/08/24 History injection solution omega-3 acid ethyl esters 1 gram 2 cap PO BID 07/09/24 Unknown History capsule triamcinolone acetonide 0.1 % 1 applic topical BID 07/09/24 Unknown History topical cream Saccharomyces boulardii 250 mg 250 mg PO BID probiotic 07/10/24 Unknown History capsule (Florastor) acetaminophen 500 mg tablet 1,000 mg PO TID PRN PRN pain 07/10/24 Unknown History clobetasol 0.05 % topical ointment 1 applic topical .COMPLEX itching 07/10/24 Unknown History cyanocobalamin (vitamin B-12) 500 500 mcg PO .COMPLEX supplement 07/10/24 Unknown History mcg tablet diphenhydramine 25 1 tab PO QHS PRN sleep 07/10/24 Unknown History mg-acetaminophen 500 mg tablet (Acetadryl) docusate sodium 100 mg capsule 100 mg PO BID constipation 07/10/24 Unknown History folic acid 1 mg tablet 1 mg PO DAILY supplement 07/10/24 Unknown History morphine 15 mg tablet,extended 15 mg PO TID pain 07/10/24 Unknown History release (MS Contin) naloxone 4 mg/actuation nasal spray 1 spray intranasal Q3M PRN overdose 07/10/24 Unknown History oxybutynin chloride 10 mg 10 mg PO DAILY bladder 07/10/24 Unknown History tablet,extended release 24 hr polyethylene glycol 3350 17 17 g PO DAILY PRN constipation 07/10/24 Unknown History gram/dose oral powder (Miralax) pyridoxine (vitamin B6) 100 mg 100 mg PO .COMPLEX supplement 07/10/24 Unknown History tablet food supplemt, lactose-reduced 120 ml PO TIDCM #30 mL 07/11/24 Unknown Rx 0.08 gram-1.5 kcal/mL oral liquid (Ensure Plus High Protein) Allergy/AdvReac Type Severity Reaction Status Date / Time adhesive Allergy blisters Verified 07/09/24 14:18 codeine AdvReac Nausea Verified 07/09/24 14:18 Family History Father CAD (coronary artery disease) Other Heart disease Surgical History History of appendectomy Previous back surgery Social History household members: spouse housing: apartment Smoking Status: Former smoker ROS Constitutional Constitutional: Reports fatigue and weakness; Denies chills or fever(s) Eyes Eyes: Denies change in vision Cardiovascular Cardiovascular: Denies chest pain Respiratory/Chest Respiratory/Chest: Denies shortness of breath at rest Gastrointestinal Gastrointestinal: Reports diarrhea, loose stools, nausea and vomiting; Denies abdominal pain or constipation Genitourinary Genitourinary: Denies dysuria Musculoskeletal Musculoskeletal: Denies arthralgias or myalgias Neurologic Neurologic: Reports dizziness; Denies headache(s) Vital Signs Vital Signs Vital Signs: 07/13/24 12:42 07/13/24 12:47 07/13/24 13:46 Temperature 98.5 F 98.2 F Temperature Source Temporal Oral Pulse Rate 68 98 Respiratory Rate 18 19 H Respiratory Effort Normal Blood Pressure 156/80 H 160/79 H Blood Pressure Mean 105 106 Pulse Ox 94 95 Oxygen Delivery Method Room Air Room Air Room Air 07/13/24 15:48 07/13/24 17:04 Temperature 98.2 F Temperature Source Pulse Rate 108 H 78 Respiratory Rate 21 H 18 Respiratory Effort Blood Pressure 147/47 H 111/78 Blood Pressure Mean 80 89 Pulse Ox 95 97 Oxygen Delivery Method Room Air Weight Weight: 78.6 kg Body Mass Index (BMI) 31.6 Physical Exam Const alert and oriented x3 Constitutional Narrative: Middle-age female, appears older than stated age, class I obesity, mildly uncomfortable and anxious appearing due to ongoing abdominal discomfort with nausea, otherwise laying back in bed and answering questions with short appropriate responses. General Appearance: cooperative HEENT normocephalic, head/scalp atraumatic, hearing grossly normal bilaterally and nasal mucous membranes and turbinates normal HEENT Narrative: Dry mucous membranes. Eyes PERRL, EOMs intact bilaterally and conjunctivae normal Neck full ROM Chest inspection of chest normal Resp normal respiratory effort, normal air movement, no use of accessory muscles and clear to auscultation bilaterally Cardio no murmurs and peripheral pulses 2+ throughout Cardio Narrative: Tachycardic, regular rhythm. GI GI Narrative: Abdomen soft, nondistended and nontender to palpation. Hyperactive bowel sounds noted. Back/Spine normal ROM Extremity normal to inspection, full ROM and no pedal edema Skin no rashes or lesions noted Neuro moves all extremities and no focal motor deficits Speech: speech normal Psych mental status grossly normal Mood & Affect: anxious Results Lab / Micro Data 07/13/24 13:00 07/13/24 13:00 Labs: Laboratory Results - last 24 hr 07/13/24 13:00: WBC 7.4, RBC 3.22 L, Hgb 10.2 L, Hct 29.8 L, MCV 92.5, MCH 31.7, MCHC 34.2 D, RDW Std Deviation 47.8 H, RDW Coeff of [place] 14.3, Plt Count 155, MPV 8.9, Immature Gran % (Auto) 0.700, Neut % (Auto) 73.3 H, Lymph % (Auto) 16.8 L, [place] % (Auto) 9.2, Eos % (Auto) 0.0, Baso % (Auto) 0.0, Absolute Neuts (auto) 5.5, Absolute Lymphs (auto) 1.25, Nucleated RBC % 0, Sodium 140, Potassium 3.2 L, Chloride 101, Carbon Dioxide 26.6, Anion Gap 12, BUN 7, Creatinine 0.55 L, Estim Creat Clear Calc 104.29, Est GFR (MDRD) Non-Af 104, BUN/Creatinine Ratio 13.5, Glucose 118 H, Calcium 8.6, Magnesium 1.2 L, Troponin T High Sens 80 H*, Lipase 88 H 07/13/24 13:55: Lactic Acid 1.0 07/13/24 14:15: Urine Color Yellow, Urine Clarity Clear, Urine pH 6.0, Ur Specific [place] 1.015, Urine Protein 30 H, Urine Glucose (UA) Normal, Urine Ketones 50 H, Urine Occult Blood 25 H, Urine Nitrite Negative, Urine Bilirubin Negative, Urine Urobilinogen Normal, Ur Leukocyte Esterase Negative, Urine RBC 0-5 SEEN, Urine WBC 0-5 SEEN, Ur Squamous Epith Cells 0 SEEN, Urine Bacteria 0 SEEN, Urine Mucus 0 SEEN Micro: Microbiology 07/13/24 13:55 Mucosa - Nose SARS-CoV-2, Influenza & RSV (PCR) - Final 07/13/24 14:36 Stool Stool Occult Blood (MARCELINA) - Final Imaging Radiology Impression Brain CT 07/13/24 14:20 IMPRESSION: Stable examination, without intracranial hemorrhage or other acute process seen. Reading Location: [address] Cervical Spine CT 07/13/24 14:20 IMPRESSION: 1. Question a nondisplaced manubrial fracture versus motion artifact. Correlate with point tenderness. 2. Demineralization without acute cervical spinal fracture identified. 3. Findings in the lung apices which may reflect pneumonia/pneumonitis or perhaps mild pulmonary edema, partially imaged and not well evaluated due to motion. Correlate with presentation and consider dedicated imaging of the chest. 4. Mild upper mediastinal lymphadenopathy, nonspecific and potentially reactive in the absence of known malignancy. Correlate with medical history and recommend follow-up CT chest, ideally with IV contrast, possibly on an outpatient basis depending on presentation. 5. Additional description as above. Reading Location: [facility] Chest CT 07/13/24 15:19 IMPRESSION: 1. Subacute appearing left lateral 7th and right anterior 6th rib fractures could be a source of chest wall pain. Correlate with patient history and the location of point tenderness. No definite manubrial fracture. 2. Marked demineralization with multilevel mid and lower thoracic spinal vertebral body decompression deformities, grossly similar to chest radiograph of 04/06/2024 although difficult to visualize at some levels at that time due to profound demineralization. An L1 compression deformity is also age indeterminate and was not included in the field of view previously to evaluate chronicity. Correlate with history and point tenderness. 3. Multifocal vaguely nodular ground-glass and mild consolidative opacities with interlobular septal thickening. Findings may reflect atypical pneumonia/pneumonitis with or without superimposed pulmonary edema. Recommend follow-up CT chest in 3 months to document stability or resolution. 4. Mild mediastinal lymphadenopathy, nonspecific and potentially reactive in the absence of known malignancy. Correlate with medical history and recommend attention on above recommended follow-up. 5. Trace to small left and small right pleural effusions. 6. Additional description as above. Reading Location: [id number] Assessment & Plan Assessment/Plan (1) Diarrhea: (2) Dehydration: PLAN: Plan Patient is a 63-year-old female who presented to [facility] ED on 07/13/2024 with nausea/vomiting/diarrhea and presyncopal symptoms with fall at home. 1. Profuse diarrhea with nausea/vomiting ? Admit under inpatient status to PCU. Symptoms and electrolyte depletion seem consistent with viral gastroenteritis versus possible C. difficile; stool studies collected and results pending at this time. Given 2 L of IV fluids in the ED, can consider further IV fluids as needed and encouraged p.o. intake as able. Monitor closely. 2. Presyncopal symptoms with fall and right sided chest wall pain, acute on chronic debility ? PT/OT/case management consulted. CT on admit showed subacute right anterior sixth rib fracture may have been secondary to fall at home. Suspect presyncopal symptoms will improve with IV fluids but appreciate therapy recommendations. Orthostatic vitals ordered for tomorrow morning as well. Continue home medications as noted below for pain control. 3. Hypokalemia, hypomagnesemia, hypophosphatemia ? Potassium 3.2, magnesium 1.2, phosphorus 1.9 on admit. Presume secondary to GI losses. Will replete as needed. 4. Abnormal CT chest findings ? CT chest showed multifocal nodular groundglass and mild consolidative opacities concerning for atypical pneumonia versus pneumonitis. Patient with no respiratory symptoms and stable on room air. Per radiology, recommending follow-up CT chest in 3 months to document stability or resolution. No further inpatient needs, recommend outpatient follow-up. 5. Elevated troponins ? Troponin trend 80 > 64 in ED. No ischemic EKG changes noted and no chest pain. Presumed secondary to demand ischemia from dehydration. Treatment as above, no further cardiac workup needed. Chronic medical conditions: ? Class I obesity: BMI 30 on admit. Complicates hospital course, care and prognosis. ? Chronic pain: OARRS reviewed. Continue home scheduled MS Contin, oxycodone?acetaminophen twice daily as needed and home gabapentin. ? RA: Continue home hydroxychloroquine. Holding home low-dose steroid at this time. ? Paroxysmal A-fib, history of CAD with stenting, hypertension, hyperlipidemia: Mild sinus tachycardia noted on admit. Continue home Coreg, Eliquis and statin. ? GERD: Continue home PPI. ? Type 2 diabetes mellitus: Treated with sliding scale insulin with meals while inpatient, adjust as needed. ? Overactive bladder: Continue home oxybutynin. ? Depression: Continue home paroxetine. DVT prophylaxis: Not indicated, on Eliquis CODE STATUS: Full code, verified Expected disposition: Home with home health care versus SNF, 2 to 3 days Total clinical time spent by myself addressing the patient's medical issues, reviewing all the data, and collaborating with patient's care team: 75 minutes. Charges/Coding Visit Charges Inpatient E&M: 40076 Init Hosp L3
[2024-07-13] MEDS: Potassium Chloride 10mEq/100mL 10 MEQ/100 ML IV.SOLN. 100 MEQ IV BOLUS (17:30)
--- NOTE | 2024-07-13 17:45 | CT_ITS ---
PROCEDURE: ABDOMEN/PELVIS WITHOUT CONT 07/13/2024 REASON FOR EXAM: DIARRHEA, VOMITING TECHNIQUE: CT abdomen and pelvis was performed without IV contrast. Multiplanar reformats were generated. PATIENT PREPARATION: Per protocol ORAL CONTRAST TYPE: None. AMOUNT: mL IV CONTRAST: None. One or more dose reduction techniques were used (e.g., Automated exposure control, adjustment of the mA and/or kV according to patient size, use of iterative reconstruction technique. RADIATION DOSE SUMMARY: CTDlvol: 11.27 mGy DLP: 605.43 mGycm COMPARISON: Ultrasound 07/10/2024; only the images are available for review, the report is not available at the time of dictation. FINDINGS: Streak artifact related to lumbar spinal fusion hardware. Note that evaluation of the abdominopelvic viscera, vasculature, and remaining soft tissues is limited in the absence of IV contrast. Lung bases: Better evaluated on separately dictated CT chest. Liver: Unremarkable. Spleen: Unremarkable. Gallbladder: Unremarkable. Pancreas: Fatty infiltration.. Adrenals: Unremarkable. Kidneys: Punctate parenchymal calculus on the right.. Bowel: No small or large bowel dilatation or convincing inflammation. Appendix is dilated to 12 mm, however without convincing adjacent inflammation. No radiopaque appendicolith. Lymph nodes: Unremarkable. Vasculature: Atherosclerosis.. Peritoneum: Unremarkable. Bladder: Underdistended and suboptimally evaluated, grossly unremarkable. Reproductive Organs: Unremarkable. Body Wall: Mild body wall edema. Focal nodular subcutaneous soft tissue thickening in the cranial aspect of the medial left gluteal region measuring 3.2 x 1.6 cm. Nonspecific subcutaneous calcifications in the left lower quadrant anterior abdominal wall. Bones: Marked demineralization. Multilevel spondylosis. L4-S1 posterior and anterior spinal fusion with associated streak artifact as above. Subacute appearing bilateral rib fractures and age- indeterminate L1 compression deformity as described previously. Questionable nondisplaced fracture along the posterior aspect of the left femoral greater trochanter versus focal motion artifact, difficult to confirm in the absence of thin bone algorithm images and given marked demineralization. No adjacent soft tissue abnormality. Chronic appearing deformity along the posterior right iliac bone, possible bone harvesting or bone biopsy site. CT/Abdomen/Pelvis without Cont IMPRESSION: 1. Marked demineralization. Questionable nondisplaced fracture along the left femoral greater trochanter versus focal motion artifact, difficult to confirm due to marked demineralization and nondedicated technique. No adjacent soft tissue abnormality to confirm fracture. Recommend dedicated radiographs and/or CT as clinically can cated by point tenderness. Note nondisplaced fractures may be radiographically occult in the setting of demineralization. 2. 3.2 cm nodular subcutaneous soft tissue thickening in the left gluteal regio n is nonspecific but could reflect a small subcutaneous hematoma given the context. 3. Subacute appearing bilateral rib fractures and age-indeterminate L1 compress ion deformity as described previously. Additional L2 and L3 compression deformities are also age indeterminate. Correlate with h istory and point tenderness. 4. Appendix is dilated to 12 mm, however without convincing adjacent inflammati on, uncertain significance. Correlation with presentation and exam is necessary. 5. Additional description as above. Reading Location: [id number]
[2024-07-13] MEDS: Magnesium Sulfate 2 GM in Dextrose 5%-Water (100mL Bag) 100 ML IV (18:35)
[2024-07-13 18:42] LABS: Phosphorus 1.9 mg/dL (2.7-4.5)
[2024-07-13 18:49] LABS: Troponin T High Sens 2 HR 64 ng/L (<=14)
[2024-07-13] MEDS: APIXABAN 5 MG TABLET PO (22:43)
[2024-07-13] MEDS: Pantoprazole Sodium 40 MG Tablet PO (22:44)
[2024-07-13] MEDS: Atorvastatin Calcium 40 MG Tablet PO (22:44)
[2024-07-13] MEDS: Hydroxychloroquine 200 MG Tablet PO (22:44)
[2024-07-13] MEDS: Na Biphos/Potassium Phosphate PACKET 1 PACKET PO (22:44)
[2024-07-13] MEDS: Gabapentin 800 MG Tablet 1200 MG PO (22:45)
[2024-07-13] MEDS: morphine SR 15 MG Tablet PO (22:47)
[2024-07-14 05:00] VITALS: BP 135/72; PULSE 94; RESP 18; TEMP 36.2; O2SAT 98
[2024-07-14] MEDS: morphine SR 15 MG Tablet PO ×3 (05:44→20:52)
[2024-07-14] MEDS: Na Biphos/Potassium Phosphate PACKET 1 PACKET PO ×3 (05:44→20:51)
[2024-07-14] MEDS: Ondansetron 4 MG/2 ML Vial IV (05:45)
--- NOTE | 2024-07-14 07:30 | PN.HOSP_ITS ---
Reason for Visit Reason for Visit: Diagnoses Dehydration (07/13/24) Diarrhea, unspecified (07/13/24) Objective Data Objective Data Vital Signs: Vital Signs Temp Pulse Resp BP Pulse Ox O2 Del Method O2 Flow Rate 97.1 F L 94 18 135/72 H 98 Nasal Cannula 2 07/14/24 05:00 07/14/24 05:00 07/14/24 05:00 07/14/24 05:00 07/14/24 05:00 07/14/24 05:00 07/14/24 05:00 Oxygen Flow Rate (L/min) 2 Oxygen Delivery Method Nasal Cannula Weight: 166 lb 7.184 oz Body Mass Index (BMI) 30.4 Intake & Output: Intake and Output for Last 24 Hours 07/12/24 07/13/24 07/14/24 23:59 23:59 23:59 Intake Total 2204 / 2204 Balance 2204 / 2204 Lab / Micro Data 07/14/24 06:48 07/14/24 06:48 Labs: Laboratory Results - last 24 hr 07/13/24 13:00: WBC 7.4, RBC 3.22 L, Hgb 10.2 L, Hct 29.8 L, MCV 92.5, MCH 31.7, MCHC 34.2 D, RDW Std Deviation 47.8 H, RDW Coeff of Valdemar 14.3, Plt Count 155, MPV 8.9, Immature Gran % (Auto) 0.700, Neut % (Auto) 73.3 H, Lymph % (Auto) 16.8 L, [place] % (Auto) 9.2, Eos % (Auto) 0.0, Baso % (Auto) 0.0, Absolute Neuts (auto) 5.5, Absolute Lymphs (auto) 1.25, Nucleated RBC % 0, Sodium 140, Potassium 3.2 L , Chloride 101, Carbon Dioxide 26.6, Anion Gap 12, BUN 7, Creatinine 0.55 L, Estim Creat Clear Calc 104.29, Est GFR (MDRD) Non-Af 104, BUN/Creatinine Ratio 13.5, Glucose 118 H, Calcium 8.6, Magnesium 1.2 L, Troponin T High Sens 80 H*, L ipase 88 H 07/13/24 13:55: Lactic Acid 1.0 07/13/24 14:15: Urine Color Yellow, Urine Clarity Clear, Urine pH 6.0, Ur Specific [place] 1.015, Urine Protein 30 H, Urine Glucose (UA) Normal, Urine Ketones 50 H, Urine Occult Blood 25 H, Urine Nitrite Negative, Urine Bilirubin Negative, Urine Urobilinogen Normal, Ur Leukocyte Esterase Negative, Urine RBC 0-5 SEEN, Urine WBC 0-5 SEEN, Ur Squamous Epith Cells 0 SEEN, Urine Bacteria 0 SEEN, Urine Mucus 0 SEEN 07/13/24 17:56: Phosphorus 1.9 L, Troponin T Hi Sens 2 Hr 64 H* Micro: Microbiology 07/13/24 17:35 Stool Stool Lactoferrin - Final 07/13/24 17:35 Stool Enteric Bacteriology - Final 07/13/24 17:35 Stool C. difficile GDH Antigen & Toxins - Final 07/13/24 17:35 Stool Clostridioides difficile (PCR) - Final 07/13/24 13:55 Mucosa - Nose SARS-CoV-2, Influenza & RSV (PCR) - Final 07/13/24 14:36 Stool Stool Occult Blood (MARCELINA) - Final Radiography Diagnostic Testing: Radiology Impression Brain CT 07/13/24 14:20 IMPRESSION: Stable examination, without intracranial hemorrhage or other acute process seen. Reading Location: [address] Cervical Spine CT 07/13/24 14:20 IMPRESSION: 1. Question a nondisplaced manubrial fracture versus motion artifact. Correlate with point tenderness. 2. Demineralization without acute cervical spinal fracture identified. 3. Findings in the lung apices which may reflect pneumonia/pneumonitis or perhaps mild pulmonary edema, partially imaged and not well evaluated due to motion. Correlate with presentation and consider dedicated imaging of the chest. 4. Mild upper mediastinal lymphadenopathy, nonspecific and potentially reactive in the absence of known malignancy. Correlate with medical history and recommend follow-up CT chest, ideally with IV contrast, possibly on an outpatient basis depending on presentation. 5. Additional description as above. Reading Location: [id number] Chest CT 07/13/24 15:19 IMPRESSION: 1. Subacute appearing left lateral 7th and right anterior 6th rib fractures could be a source of chest wall pain. Correlate with patient history and the location of point tenderness. No definite manubrial fracture. 2. Marked demineralization with multilevel mid and lower thoracic spinal vertebral body decompression deformities, grossly similar to chest radiograph of 04/06/2024 although difficult to visualize at some levels at that time due to profound demineralization. An L1 compression deformity is also age indeterminate and was not included in the field of view previously to evaluate chronicity. Correlate with history and point tenderness. 3. Multifocal vaguely nodular ground-glass and mild consolidative opacities with interlobular septal thickening. Findings may reflect atypical pneumonia/pneumonitis with or without superimposed pulmonary edema. Recommend follow-up CT chest in 3 months to document stability or resolution. 4. Mild mediastinal lymphadenopathy, nonspecific and potentially reactive in the absence of known malignancy. Correlate with medical history and recommend attention on above recommended follow-up. 5. Trace to small left and small right pleural effusions. 6. Additional description as above. Reading Location: [facility] Abdomen/Pelvis CT 07/13/24 17:45 IMPRESSION: 1. Marked demineralization. Questionable nondisplaced fracture along the left femoral greater trochanter versus focal motion artifact, difficult to confirm due to marked demineralization and nondedicated technique. No adjacent soft tissue abnormality to confirm fracture. Recommend dedicated radiographs and/or CT as clinically indicated by point tenderness. Note nondisplaced fractures may be radiographically occult in the setting of demineralization. 2. 3.2 cm nodular subcutaneous soft tissue thickening in the left gluteal region is nonspecific but could reflect a small subcutaneous hematoma given the context. 3. Subacute appearing bilateral rib fractures and age-indeterminate L1 compression deformity as described previously. Additional L2 and L3 compression deformities are also age indeterminate. Correlate with history and point tenderness. 4. Appendix is dilated to 12 mm, however without convincing adjacent inflammation, uncertain significance. Correlation with presentation and exam is necessary. 5. Additional description as above. Reading Location: [id number] Rhythm Strip Rhythm Strip: Sinus Rhythm Rate: 97 Ectopy: None Physical Exam Narrative Seen and examined. Patient stated she has been sick with nausea vomiting and diarrhea since last Ricardo, chills, did not take her temperature. She had antibiotic in last 3 months probably for UTI. Never had C. difficile. Complained of intermittent abdominal pain/cramps, diffuse nondisplaced Physical exam General: Alert, Oriented x3, Cooperative HEENT: Atraumatic, PERRLA, EOMI, Normocephalic Oral: Oral mucosa dry. No Gingival or Mucosal Lesions/ Ulcerations Neck: Supple, No JVD, Negative Carotid Bruits Chest wall/Lungs: Air entry diminished in bilateral lung bases. No crepitation/rhonchi Cardiovascular: Regular rate, Regular Rhythm, Normal S1, Normal S2, No M/G/R. Tenderness at xiphisternum. Abdomen: Bowel Sounds Present, Soft, tenderness present over bilateral lower quadrants and left upper quadrant. : No dysuria. No renal angle tenderness. No suprapubic tenderness. Extremities: No edema, Capillary Refill Less than 3 Seconds Skin: No rashes, No breakdown Musculoskeletal: No Tenderness to Palpation of Joints or Extremities Neurological: Cranial nerves II-XII grossly intact, DTR 2+/4. No acute focal neurological deficit. Psych/Mental Status: Normal Affect, Appropriate. Assessment & Plan Assessment/Plan (1) Diarrhea: (2) Dehydration: PLAN: Plan Patient is a 63-year-old female who presented to [facility] ED on 07/13/2024 with nausea/vomiting/diarrhea and presyncopal symptoms with fall at home, some bruise to the forehead. As per triage note she was little confused. Complain of lower chest pain 1. Profuse diarrhea with nausea/vomiting, abdominal cramps due to acute C. difficile colitis: Patient being admitted in PCU. Stool for C. difficile antigen A/B are positive. Negative C. difficile toxin. CT abdomen/pelvis without oral and IV contrast done in ED. No small or large bowel dilatation or inflammation. Appendix dilated 12 mm without adjacent inflammation. No appendicolith. Patient is started on oral vancomycin 1 2500 Q6 hourly. Probiotic. Soft diet. Stool for enteric pathogen panel negative. Stool for lactoferrin and occult blood 2. Presyncopal symptoms with fall and right sided chest wall pain, acute on chronic debility: There is tenderness in xiphisternal ? PT/OT/case management consulted. CT on admit showed subacute right anterior sixth rib fracture may have been secondary to fall at home. Presyncopal symptom improved with IV fluid. 3. Hypokalemia, hypomagnesemia, hypophosphatemia ? Potassium 3.2, magnesium 1.2, phosphorus 1.9 on admit. Presume secondary to GI losses. Electrolytes are getting replaced 4. Abnormal CT chest findings ? CT chest showed multifocal nodular groundglass and mild consolidative opacities concerning for atypical pneumonia versus pneumonitis. Patient with no respiratory symptoms and stable on room air. Per radiology, recommending follow-up CT chest in 3 months to document stability or resolution. No further inpatient needs, recommend outpatient follow-up. 5. Elevated troponins with chronic mild aortic ? Troponin trend 80 > 64 in ED. No ischemic EKG changes noted and no chest pain. Presumed secondary to demand ischemia from dehydration. Recent 2D echo reviewed. Patient has mild aortic stenosis. Last echo April 2023 shows EF 60%. PASP 28 mmHg. LA mildly Chronic medical conditions: ? Class I obesity: BMI 30 on admit. Complicates hospital course, care and prognosis. ? Chronic pain: OARRS reviewed. Continue home scheduled MS Contin, oxycodone?acetaminophen twice daily as needed and home gabapentin. ? RA: Continue home hydroxychloroquine. Holding home low-dose steroid at this time. ? Paroxysmal A-fib, history of CAD with stenting, hypertension, hyperlipidemia: Mild sinus tachycardia noted on admit. Continue home Coreg, Eliquis and statin. ? GERD: Continue home PPI. ? Type 2 diabetes mellitus: Treated with sliding scale insulin with meals while inpatient, adjust as needed. ? Overactive bladder: Continue home oxybutynin. ? Depression: Continue home paroxetine. DVT prophylaxis: Not indicated, on Eliquis CODE STATUS: Full code, verified Microbiology Past 72 Hours 07/13/24 17:35 Stool Stool Lactoferrin - Final 07/13/24 17:35 Stool Enteric Bacteriology - Final 07/13/24 17:35 Stool C. difficile GDH Antigen & Toxins - Final 07/13/24 17:35 Stool Clostridioides difficile (PCR) - Final 07/13/24 13:55 Mucosa - Nose SARS-CoV-2, Influenza & RSV (PCR) - Final 07/13/24 14:36 Stool Stool Occult Blood (MARCELINA) - Final Laboratory Results 07/13/24 13:00: WBC 7.4, RBC 3.22 L, Hgb 10.2 L, Hct 29.8 L, MCV 92.5, MCH 31.7, MCHC 34.2 D, RDW Std Deviation 47.8 H, RDW Coeff of Valdemar 14.3, Plt Count 155, MPV 8.9, Immature Gran % (Auto) 0.700, Neut % (Auto) 73.3 H, Lymph % (Auto) 16.8 L, [place] % (Auto) 9.2, Eos % (Auto) 0.0, Baso % (Auto) 0.0, Absolute Neuts (auto) 5.5, Absolute Lymphs (auto) 1.25, Nucleated RBC % 0, Sodium 140, Potassium 3.2 L , Chloride 101, Carbon Dioxide 26.6, Anion Gap 12, BUN 7, Creatinine 0.55 L, Estim Creat Clear Calc 104.29, Est GFR (MDRD) Non-Af 104, BUN/Creatinine Ratio 13.5, Glucose 118 H, Calcium 8.6, Magnesium 1.2 L, Troponin T High Sens 80 H*, L ipase 88 H 07/13/24 13:55: Lactic Acid 1.0 07/13/24 14:15: Urine Color Yellow, Urine Clarity Clear, Urine pH 6.0, Ur Specific [place] 1.015, Urine Protein 30 H, Urine Glucose (UA) Normal, Urine Ketones 50 H, Urine Occult Blood 25 H, Urine Nitrite Negative, Urine Bilirubin Negative, Urine Urobilinogen Normal, Ur Leukocyte Esterase Negative, Urine RBC 0-5 SEEN, Urine WBC 0-5 SEEN, Ur Squamous Epith Cells 0 SEEN, Urine Bacteria 0 SEEN, Urine Mucus 0 SEEN 07/13/24 17:56: Phosphorus 1.9 L, Troponin T Hi Sens 2 Hr 64 H* 07/14/24 06:48: WBC 8.2, RBC 2.73 L, Hgb 8.4 L, Hct 26.2 L, MCV 96.0, MCH 30.8, MCHC 32.1 D, RDW Std Deviation 50.5 H, RDW Coeff of [place]dem[place] 14.7 H, Plt Count 122 L , MPV 8.8, Sodium 140, Potassium 2.5 L*, Chloride 105, Carbon Dioxide 21.8, Anion Gap 14, BUN 7, Creatinine 0.51 L, Estim Creat Clear Calc 110.20, Est GFR (MDRD) Non-Af 106, BUN/Creatinine Ratio 13.3, Glucose 79, Calcium 7.8, Phosphorus Pending, Magnesium 1.9 Clinical Impression(s) from Imaging Studies Brain CT 07/13/24 14:20 IMPRESSION: Stable examination, without intracranial hemorrhage or other acute process seen. Reading Location: [address]ical Spine [address] 07/13/24 14:20 IMPRESSION: 1. Question a nondisplaced manubrial fracture versus motion artifact. Correlate with point tenderness. 2. Demineralization without acute cervical spinal fracture identified. 3. Findings in the lung apices which may reflect pneumonia/pneumonitis or perhaps mild pulmonary edema, partially imaged and not well evaluated due to motion. Correlate with presentation and consider dedicated imaging of the chest. 4. Mild upper mediastinal lymphadenopathy, nonspecific and potentially reactive in the absence of known malignancy. Correlate with medical history and recommend follow-up CT chest, ideally with IV contrast, possibly on an outpatient basis depending on presentation. 5. Additional description as above. Reading Location: [facility] Chest CT 07/13/24 15:19 IMPRESSION: 1. Subacute appearing left lateral 7th and right anterior 6th rib fractures could be a source of chest wall pain. Correlate with patient history and the location of point tenderness. No definite manubrial fracture. 2. Marked demineralization with multilevel mid and lower thoracic spinal vertebral body decompression deformities, grossly similar to chest radiograph of 04/06/2024 although difficult to visualize at some levels at that time due to profound demineralization. An L1 compression deformity is also age indeterminate and was not included in the field of view previously to evaluate chronicity. Correlate with history and point tenderness. 3. Multifocal vaguely nodular ground-glass and mild consolidative opacities with interlobular septal thickening. Findings may reflect atypical pneumonia/pneumonitis with or without superimposed pulmonary edema. Recommend follow-up CT chest in 3 months to document stability or resolution. 4. Mild mediastinal lymphadenopathy, nonspecific and potentially reactive in the absence of known malignancy. Correlate with medical history and recommend attention on above recommended follow-up. 5. Trace to small left and small right pleural effusions. 6. Additional description as above. Reading Location: [facility] Abdomen/Pelvis CT 07/13/24 17:45 IMPRESSION: 1. Marked demineralization. Questionable nondisplaced fracture along the left femoral greater trochanter versus focal motion artifact, difficult to confirm due to marked demineralization and nondedicated technique. No adjacent soft tissue abnormality to confirm fracture. Recommend dedicated radiographs and/or CT as clinically indicated by point tenderness. Note nondisplaced fractures may be radiographically occult in the setting of demineralization. 2. 3.2 cm nodular subcutaneous soft tissue thickening in the left gluteal region is nonspecific but could reflect a small subcutaneous hematoma given the context. 3. Subacute appearing bilateral rib fractures and age-indeterminate L1 compression deformity as described previously. Additional L2 and L3 compression deformities are also age indeterminate. Correlate with history and point tenderness. 4. Appendix is dilated to 12 mm, however without convincing adjacent inflammation, uncertain significance. Correlation with presentation and exam is necessary. 5. Additional description as above. Reading Location: [id number] Charges/Coding Visit Charges Inpatient E&M: 52757 Subs Hosp L2
[2024-07-14 07:35] LABS: Hematocrit 26.2 % (37-47); Hemoglobin 8.4 g/dL (12.0-15.0); Mean Corp Hgb Conc 32.1 g/dL (32-36); Mean Corpuscular Hgb 30.8 pg (27.0-32.0); Mean Platelet Vol. 8.8 fl (6.2-12.0); Platelet Count 122 K/mm3 (150-450); RBC Distribution Width CV 14.7 % (11.6-14.6); RBC Distribution Width SD 50.5 fl (35.1-43.9); Red Blood Count 2.73 M/mm3 (4.2-5.4); White Blood Count 8.2 K/mm3 (4.4-11.0)
[2024-07-14 07:46] LABS: Scan Indicated on CBC? Y/N NO
[2024-07-14 08:16] LABS: Magnesium 1.9 mg/dL (1.5-2.2)
[2024-07-14 08:34] LABS: Anion Gap 14 (5-15); BUN 7 mg/dL (4-19); BUN/Creat Ratio 13.3 RATIO (10-20); Calcium,Total 7.8 mg/dL (7.6-11.0); Carbon Dioxide 21.8 mmol/L (21.0-32.0); Chloride 105 mmol/L (98-108); Creatinine, Serum 0.51 mg/dL (0.70-1.20); EST Glomerular Filtration Rate 106 (>60); Glucose 79 mg/dL (70-99); Potassium 2.5 mmol/L (3.3-5.1); Sodium Level 140 mmol/L (133-145)
[2024-07-14 08:52] LABS: Phosphorus 2.6 mg/dL (2.7-4.5)
[2024-07-14 08:57] VITALS: BP 135/72; PULSE 95; RESP 17; TEMP 37.7; O2SAT 93
[2024-07-14] MEDS: Gabapentin 800 MG Tablet 1200 MG PO ×2 (09:03→20:51)
[2024-07-14] MEDS: Cholecalciferol (VIT D3) 25 MCG TABLET (1,000 UNITS) 50 MCG PO (09:04)
[2024-07-14] MEDS: Pyridoxine HCl 100 MG Tablet PO (09:04)
[2024-07-14] MEDS: Pantoprazole Sodium 40 MG Tablet PO ×2 (09:04→20:52)
[2024-07-14] MEDS: Carvedilol 12.5 MG Tablet PO ×2 (09:04→17:15)
[2024-07-14] MEDS: Tolterodine Tartrate 2 MG CAP.SA PO (09:04)
[2024-07-14] MEDS: Paroxetine 20 MG Tablet 40 MG PO (09:05)
[2024-07-14] MEDS: Hydroxychloroquine 200 MG Tablet PO ×2 (09:05→20:53)
[2024-07-14] MEDS: Cyanocobalamin 500 MCG Tablet PO (09:05)
[2024-07-14] MEDS: APIXABAN 5 MG TABLET PO ×2 (09:05→20:52)
[2024-07-14] MEDS: Vancomycin 125 MG/5 ML Susp PO.SYRINGE PO ×2 (10:01→17:16)
[2024-07-14] MEDS: Lactated Ringers 1,000 ML 100 ML IV ×2 (10:02→20:46)
[2024-07-14] MEDS: 0.9% Normal Saline (100mL Bag) 100 ML 15 ML IV ×2 (10:05→10:09)
[2024-07-14] MEDS: Magnesium Sulfate 2 GM in Dextrose 5%-Water (100mL Bag) 100 ML IV (10:07)
[2024-07-14] MEDS: Potassium Chloride 10mEq/100mL 10 MEQ/100 ML IV.SOLN. 100 MEQ IV BOLUS ×4 (10:11→13:57)
--- NOTE | 2024-07-14 14:47 | CASEMGMT ---
DADA HALL chart reviewed: Patient was admitted 07/09-07/11/24 for QUENTIN. See assessment from 07/09/24. Patient was discharged to home with [facility], family support, and follow-up plans in place. Patient returned to [facility] ED on 07/13/24 after having a fall. Patient was admitted for NVD with presyncopal symptoms and fall. Patient tested positive for C-diff and started on PO Vanco. DADA HALL in to discuss reamission and needs at discharge. Patient states she was taking her medications as prescribed. Patient returned prior to PCP appt. Patient states HHC had been out to see. Patient wishes to return home with support from significant other, [facility], and follow-up plans in place. Patient denies additional needs at discharge and had no further questions or concerns. DADA HALL updated DC manager business planning to send resumption referral to [facility]. CM will continue to follow this patient and plan for a safe discharge.
[2024-07-14] MEDS: Gabapentin 400 MG Capsule PO (14:53)
[2024-07-14 15:01] VITALS: BP 122/68; PULSE 76; RESP 18; TEMP 36.6; O2SAT 94
--- NOTE | 2024-07-14 15:13 | CASEMGMT ---
Discharge Planning HH resumption sent to [facility]. Penny Nunes DC Planning Asst.
[2024-07-14] MEDS: Atorvastatin Calcium 40 MG Tablet PO (20:52)
[2024-07-14 21:00] VITALS: BP 125/88; PULSE 82; RESP 16; TEMP 37.1; O2SAT 96
[2024-07-15] MEDS: Vancomycin 125 MG/5 ML Susp PO.SYRINGE PO ×4 (01:00→17:05)
[2024-07-15 03:00] VITALS: BP 114/79; PULSE 73; RESP 17; TEMP 36.6; O2SAT 93
[2024-07-15] MEDS: Acetaminophen 325 MG Tablet 650 MG PO (03:53)
[2024-07-15] MEDS: morphine SR 15 MG Tablet PO ×2 (06:03→13:02)
[2024-07-15 09:14] LABS: Absolute Lymphocyte Count 1.36 X10^3/uL (0.83-4.51); Absolute Neutrophil Count 4.3 X10^3/uL (2.0-7.7); Basophil# 0.02 X10^3/uL; Basophil% 0.3 % (0-1); Eosinophil# 0.01 X10^3/uL; Eosinophils% 0.2 % (0-5); Hematocrit 24.3 % (37-47); Hemoglobin 7.8 g/dL (12.0-15.0); Lymphocyte # 1.36 X10^3/ul (0.83-4.51); Lymphocyte % 21.4 % (19-41); Mean Corp Hgb Conc 32.1 g/dL (32-36); Mean Corpuscular Hgb 30.7 pg (27.0-32.0); Mean Corpuscular Volume 95.7 fL (81-99); Mean Platelet Vol. 8.3 fl (6.2-12.0); Monocyte# 0.66 X10^3/uL; Monocyte% 10.4 % (0-10); NRBC Flagged by Analyzer 0.3 % (0-5); Neutrophil # 4.26 X10^3/uL (2.7-7.7); Neutrophil % 67.1 % (47-70); Platelet Count 120 K/mm3 (150-450); RBC Distribution Width CV 14.6 % (11.6-14.6); RBC Distribution Width SD 50.4 fl (35.1-43.9); Red Blood Count 2.54 M/mm3 (4.2-5.4); White Blood Count 6.4 K/mm3 (4.4-11.0)
[2024-07-15 09:41] VITALS: BP 105/65; PULSE 80; RESP 17; TEMP 37; O2SAT 94
[2024-07-15] MEDS: Paroxetine 20 MG Tablet 40 MG PO (09:45)
[2024-07-15] MEDS: Gabapentin 800 MG Tablet 1200 MG PO (09:45)
[2024-07-15] MEDS: Hydroxychloroquine 200 MG Tablet PO (09:46)
[2024-07-15] MEDS: Cyanocobalamin 500 MCG Tablet PO (09:46)
[2024-07-15] MEDS: Pantoprazole Sodium 40 MG Tablet PO (09:46)
[2024-07-15] MEDS: Pyridoxine HCl 100 MG Tablet PO (09:46)
[2024-07-15] MEDS: APIXABAN 5 MG TABLET PO (09:46)
[2024-07-15] MEDS: Cholecalciferol (VIT D3) 25 MCG TABLET (1,000 UNITS) 50 MCG PO (09:47)
[2024-07-15] MEDS: Carvedilol 12.5 MG Tablet PO (09:47)
[2024-07-15] MEDS: Tolterodine Tartrate 2 MG CAP.SA PO (09:47)
[2024-07-15 10:03] LABS: Anion Gap 9 (5-15); BUN 8 mg/dL (4-19); Calcium,Total 7.8 mg/dL (7.6-11.0); Carbon Dioxide 25.1 mmol/L (21.0-32.0); Chloride 102 mmol/L (98-108); EST Glomerular Filtration Rate 107 (>60); Glucose 83 mg/dL (70-99); Sodium Level 137 mmol/L (133-145)
--- NOTE | 2024-07-15 10:21 | DCINST_ITS ---
Discharge Instructions Diet Discharge Diet: Light diet - advance as tolerated DC O2, CPAP, BIPAP needs Home O2 Discharge instructions: No Dressing / Incision Discharge Activity: Return to Normal Activity Weight Bearing Status: Weight bearing as tolerated Dressing / Incision Call your doctor if you observe: Fever of 101 or Higher, Coldness, Increased Quin n, Numbness or Tingling, Change in Color, Inability to urinate, Inability to have a bowel movement, Shortness of breath, Dizziness, Fainting spells, Swelling in the ankles, Chest pain, Prolonged hiccupping, Increased palpitations (irregular heartbeat) and Calf discomfort Follow Up Care When: IN 2 WEEKS Test Results: Test results from this visit will be discussed in further detail at your follow- up appointment, if applicable. Discharge Plan Admission Admit Date/Time: 07/13/24 17:25 Attending Provider: Rc Landin Primary Care Provider: Keren Bustamante Consulting Providers: Eladio Matute Discharge Orders/Prescriptions Prescriptions: New vancomycin [Vancocin] 125 mg capsule 125 mg PO Q6H 14 Days Qty: 56 0RF Continued metaxalone 800 mg tablet 400 - 800 mg PO TID PRN (Reason: muscle spasm) Folbee 2.5-25-1 mg tablet 1 tab PO DAILY Patient Comments: PT UNSURE IF SHE IS TAKING. cholecalciferol (vitamin D3) [Vitamin D3] 50 mcg (2,000 unit) tablet 2,000 unit PO DAILY Patient Comments: PT STATES SHE IS TAKING OTC AND RX, BUT IS NOT SURE WHICH SHE IS TAKING. oxycodone-acetaminophen 7.5-325 mg tablet 1 tab PO BID PRN (Reason: Pain) Patient Comments: PT KNOWS SHE TAKES A PAIN MEDICATION, UNSURE OF WHICH prednisone 5 mg tablet 5 mg PO DAILY PRN (Reason: RHEUMATOID ARTHRITIS FLARE) Patient Comments: PT HAS NOT TAKEN IN AWHILE BUT CAN IF SHE NEEDS TO. ondansetron 4 mg tablet,disintegrating 4 mg PO Q6H PRN (Reason: nausea and vomiting) Qty: 15 0RF hydroxychloroquine 200 mg tablet 200 mg PO BID metformin 500 mg tablet extended release 24 hr 500 mg PO DAILY paroxetine HCl 30 mg tablet 40 mg PO DAILY tizanidine 2 mg Tablet 2 mg PO Q6H PRN PRN (Reason: SPASMS) Qty: 0 0RF carvedilol 12.5 mg tablet 12.5 mg PO BID 30 Days Qty: 60 2RF Rx Instructions: must administer with a meal/food methotrexate sodium 25 mg/mL solution 15 mg subcut WE famotidine 20 mg tablet 20 mg PO QHS PRN (Reason: gerd) triamcinolone acetonide 0.1 % cream 1 applic topical BID omega-3 acid ethyl esters 1 gram capsule 2 cap PO BID atorvastatin 40 mg tablet 40 mg PO QHS gabapentin 800 mg tablet 800 mg PO .COMPLEX Rx Instructions: 800 mg orally; TAKE 1.5 TABLETS IN THE MORNING, 1/2 TABLET IN AFTERNOON, AND 1.5 TABLETS IN EVENING.; esomeprazole magnesium 40 MG capsule 40 mg PO BID acetaminophen 500 mg tablet 1,000 mg PO TID PRN PRN (Reason: pain) clobetasol 0.05 % ointment 1 applic topical .COMPLEX Rx Instructions: 1 applic topically 2-3x per week; cyanocobalamin (vitamin B-12) 500 mcg tablet 500 mcg PO .COMPLEX Rx Instructions: 500 mcg orally As directed; diphenhydramine-acetaminophen [Acetadryl] 25-500 mg tablet 1 tab PO QHS PRN (Reason: sleep) folic acid 1 mg tablet 1 mg PO DAILY morphine [MS Contin] 15 mg tablet extended release 15 mg PO TID oxybutynin chloride 10 mg tablet extended release 24hr 10 mg PO DAILY polyethylene glycol 3350 [Miralax] 17 gram/dose powder 17 g PO DAILY PRN (Reason: constipation) pyridoxine (vitamin B6) 100 mg tablet 100 mg PO .COMPLEX Rx Instructions: 100 mg orally; Saccharomyces boulardii [Florastor] 250 mg capsule 250 mg PO BID naloxone 4 mg/actuation spray,non-aerosol 1 spray intranasal Q3M PRN (Reason: overdose) Rx Instructions: spray 1 dose into ONE nostril; alternate nostrils w each dose until help arrives Ensure Plus High Protein 0.08 gram-1.5 kcal/mL Liquid 120 ml PO TIDCM Qty: 30 0RF Eliquis 5 mg tablet 5 mg PO BID Qty: 60 11RF Changed potassium chloride 10 mEq capsule, extended release 20 meq PO DAILY 30 Days Qty: 90 3RF sennosides-docusate sodium [Stimulant Laxative Plus] 8.6-50 mg Tablet 2 tab PO BID PRN (Reason: constipation) Qty: 0 0RF Rx Instructions: [id number] Discontinued hydroxyzine pamoate 25 mg capsule 25 - 50 mg PO TID PRN docusate sodium 100 mg capsule 100 mg PO BID Referrals / Follow Up: Keren Bustamante MD [Primary Care Provider] - Hola Leong MD [Med Staff - Active Staff] - Within 1 Month (As needed if needed for C. difficile diarrhea) Disposition Disposition (needs filled in before D/C Order can be placed): Home, Self Care
[2024-07-15] MEDS: Gabapentin 400 MG Capsule PO (13:02)
--- NOTE | 2024-07-15 13:30 | PCM.DC.SUM ---
Providers Date of Admission: 07/13/24 Date of Discharge: 07/15/24 Primary Care Physician: Dr. Keren Bustamante MD Reason For Visit: DIARRHEA WITH DEHYDRATION AND PRE SYNCOPE W/ FALL Diagnosis Discharge Diagnosis (1) Diarrhea: Status: Acute Code(s): R19.7 - Diarrhea, unspecified (2) Dehydration: Status: Acute Code(s): E86.0 - Dehydration Plan Patient is a 63-year-old female who presented to [facility] ED on 07/13/[facility]24 with nausea/vomiting/diarrhea and presyncopal symptoms with fall at home, some bruise to the forehead. As per triage note she was little confused. Complain of lower chest pain 1. Profuse diarrhea with nausea/vomiting, abdominal cramps due to acute C. difficile colitis: Patient being admitted in PCU. Stool for C. difficile antigen A/B are positive. Negative C. difficile toxin. CT abdomen/pelvis without oral and IV contrast done in ED. No small or large bowel dilatation or inflammation. Appendix dilated 12 mm without adjacent inflammation. No appendicolith. Patient is started on oral vancomycin 1 2500 Q6 hourly. Probiotic. Soft diet. Stool for enteric pathogen panel negative. Stool for lactoferrin and occult blood are negative 07/15: Patient abdominal pain and diarrhea has resolved. Did not had bowel movement yesterday. Prescription given for 2 weeks course of vancomycin 125 mg capsule 4 times daily. Advised to [facility] including disinfection/sterilization of common touch contacts/cloths. Contact precaution for 7 days 2. Presyncopal symptoms with fall and right sided chest wall pain, acute on chronic debility: There is tenderness in xiphisternal ? PT/OT/case management consulted. CT on admit showed subacute right anterior sixth rib fracture may have been secondary to fall at home. Presyncopal symptom improved with IV fluid. 07/15 resolved. 3. Hypokalemia, hypomagnesemia, hypophosphatemia ? Potassium 3.2, magnesium 1.2, phosphorus 1.9 on admit. Presume secondary to GI losses. Electrolytes are getting replaced 07/15: Potassium 3.0, hypokalemia. Patient on potassium supplement at home, 20 mEq daily 4[address] Abnormal CT chest findings ? CT chest showed multifocal nodular groundglass and mild consolidative opacities concerning for atypical pneumonia versus pneumonitis. Patient with no respiratory symptoms and stable on room air. Per radiology, recommending follow-up CT chest in 3 months to document stability or resolution. No further inpatient needs, recommend outpatient follow-up. 5. Elevated troponins with chronic mild aortic ? Troponin trend 80 > 64 in ED. No ischemic EKG changes noted and no chest pain. Presumed secondary to demand ischemia from dehydration. Recent 2D echo reviewed. Patient has mild aortic stenosis. Last echo April 2023 shows EF 60%. PASP 28 mmHg. LA mildly 07/15 ACS ruled out Chronic medical conditions: ? Class I obesity: BMI 30 on admit. Complicates hospital course, care and prognosis. ? Chronic pain: OARRS reviewed. Continue home scheduled MS Contin, oxycodone?acetaminophen twice daily as needed and home gabapentin. ? RA: Continue home hydroxychloroquine. Holding home low-dose steroid at this time. ? Paroxysmal A-fib, history of CAD with stenting, hypertension, hyperlipidemia: Mild sinus tachycardia noted on admit. Continue home Coreg, Eliquis and statin. ? GERD: Continue home PPI. ? Type 2 diabetes mellitus: Treated with sliding scale insulin with meals while inpatient, adjust as needed. ? Overactive bladder: Continue home oxybutynin. ? Depression: Continue home paroxetine. DVT prophylaxis: Not indicated, on Eliquis CODE STATUS: Full code, verified Discharge medication reconciliation done. Discharge follow-up instructions completed. Discharge process discussed with the patient and all questions were answered to patient's satisfaction. Follow with PCP in 1 to 2 weeks Total time spent, exact 35 minutes on discharge meds reconciliation, examination, coordination of care with nurses and ancillary staff, review of imaging and blood test and discussion with the patient on follow-up instructions. Microbiology Past 72 Hours 07/13/24 17:35 Stool Stool Lactoferrin - Final 07/13/24 17:35 Stool Enteric Bacteriology - Final 07/13/24 17:35 Stool C. difficile GDH Antigen & Toxins - Final 07/13/24 17:35 Stool Clostridioides difficile (PCR) - Final 07/13/24 13:55 Mucosa - Nose SARS-CoV-2, Influenza & RSV (PCR) - Final 07/13/24 14:36 Stool Stool Occult Blood (MARCELINA) - Final Clinical Impression(s) from Imaging Studies Brain CT 07/13/24 14:20 IMPRESSION: Stable examination, without intracranial hemorrhage or other acute process seen. Reading Location: [address] Cervical Spine CT 07/13/24 14:20 IMPRESSION: 1. Question a nondisplaced manubrial fracture versus motion artifact. Correlate with point tenderness. 2. Demineralization without acute cervical spinal fracture identified. 3. Findings in the lung apices which may reflect pneumonia/pneumonitis or perhaps mild pulmonary edema, partially imaged and not well evaluated due to motion. Correlate with presentation and consider dedicated imaging of the chest. 4. Mild upper mediastinal lymphadenopathy, nonspecific and potentially reactive in the absence of known malignancy. Correlate with medical history and recommend follow-up CT chest, ideally with IV contrast, possibly on an outpatient basis depending on presentation. 5. Additional description as above. Reading Location: [facility] Chest CT 07/13/24 15:19 IMPRESSION: 1. Subacute appearing left lateral 7th and right anterior 6th rib fractures could be a source of chest wall pain. Correlate with patient history and the location of point tenderness. No definite manubrial fracture. 2. Marked demineralization with multilevel mid and lower thoracic spinal vertebral body decompression deformities, grossly similar to chest radiograph of 04/06/2024 although difficult to visualize at some levels at that time due to profound demineralization. An L1 compression deformity is also age indeterminate and was not included in the field of view previously to evaluate chronicity. Correlate with history and point tenderness. 3. Multifocal vaguely nodular ground-glass and mild consolidative opacities with interlobular septal thickening. Findings may reflect atypical pneumonia/pneumonitis with or without superimposed pulmonary edema. Recommend follow-up CT chest in 3 months to document stability or resolution. 4. Mild mediastinal lymphadenopathy, nonspecific and potentially reactive in the absence of known malignancy. Correlate with medical history and recommend attention on above recommended follow-up. 5. Trace to small left and small right pleural effusions. 6. Additional description as above. Reading Location: [facility] Abdomen/Pelvis CT 07/13/24 17:45 IMPRESSION: 1. Marked demineralization. Questionable nondisplaced fracture along the left femoral greater trochanter versus focal motion artifact, difficult to confirm due to marked demineralization and nondedicated technique. No adjacent soft tissue abnormality to confirm fracture. Recommend dedicated radiographs and/or CT as clinically indicated by point tenderness. Note nondisplaced fractures may be radiographically occult in the setting of demineralization. 2. 3.2 cm nodular subcutaneous soft tissue thickening in the left gluteal region is nonspecific but could reflect a small subcutaneous hematoma given the context. 3. Subacute appearing bilateral rib fractures and age-indeterminate L1 compression deformity as described previously. Additional L2 and L3 compression deformities are also age indeterminate. Correlate with history and point tenderness. 4. Appendix is dilated to 12 mm, however without convincing adjacent inflammation, uncertain significance. Correlation with presentation and exam is necessary. 5. Additional description as above. Reading Location: [id number] Medications at Discharge Home Medications cholecalciferol (vitamin D3) 50 mcg (2,000 unit) tablet (Vitamin D3) 2,000 unit PO DAILY vitamin 12/14/20 folic acid-vit B6-vit B12 2.5 mg-25 mg-1 mg tablet (Folbee) 1 tab PO DAILY supplement 12/14/20 oxycodone-acetaminophen 7.5 mg-325 mg tablet 1 tab PO BID PRN Pain 12/16/20 prednisone 5 mg tablet 5 mg PO DAILY PRN RHEUMATOID ARTHRITIS FLARE 12/16/20 metaxalone 800 mg tablet 400 - 800 mg PO TID PRN muscle spasm 07/17/23 ondansetron 4 mg disintegrating tablet 4 mg PO Q6H PRN nausea and vomiting #15 tabs 07/22/23 apixaban 5 mg tablet (Eliquis) 5 mg PO BID afib #60 tabs 01/21/24 hydroxychloroquine 200 mg tablet 200 mg PO BID itching 04/06/24 metformin 500 mg tablet,extended release 24 hr 500 mg PO DAILY diabetes 04/06/24 paroxetine HCl 30 mg tablet 40 mg PO DAILY depression 04/06/24 tizanidine 2 mg tablet 2 mg PO Q6H PRN PRN SPASMS #0 tabs 05/28/24 carvedilol 12.5 mg tablet 12.5 mg PO BID FOR HEART 1 month #60 tabs 05/29/24 atorvastatin 40 mg tablet 40 mg PO QHS cholesterol 07/09/24 esomeprazole magnesium 40 mg capsule,delayed release 40 mg PO BID reflux 07/09/24 famotidine 20 mg tablet 20 mg PO QHS PRN gerd 07/09/24 gabapentin 800 mg tablet 800 mg PO .COMPLEX nueropathy 07/09/24 methotrexate sodium 25 mg/mL injection solution 15 mg subcut WE 07/09/24 omega-3 acid ethyl esters 1 gram capsule 2 cap PO BID 07/09/24 triamcinolone acetonide 0.1 % topical cream 1 applic topical BID 07/09/24 Saccharomyces boulardii 250 mg capsule (Florastor) 250 mg PO BID probiotic 07/10/24 acetaminophen 500 mg tablet 1,000 mg PO TID PRN PRN pain 07/10/24 clobetasol 0.05 % topical ointment 1 applic topical .COMPLEX itching 07/10/24 cyanocobalamin (vitamin B-12) 500 mcg tablet 500 mcg PO .COMPLEX supplement 07/10/24 diphenhydramine 25 mg-acetaminophen 500 mg tablet (Acetadryl) 1 tab PO QHS PRN sleep 07/10/24 folic acid 1 mg tablet 1 mg PO DAILY supplement 07/10/24 morphine 15 mg tablet,extended release (MS Contin) 15 mg PO TID pain 07/10/24 naloxone 4 mg/actuation nasal spray 1 spray intranasal Q3M PRN overdose 07/10/24 oxybutynin chloride 10 mg tablet,extended release 24 hr 10 mg PO DAILY bladder 07/10/24 polyethylene glycol 3350 17 gram/dose oral powder (Miralax) 17 g PO DAILY PRN constipation 07/10/24 pyridoxine (vitamin B6) 100 mg tablet 100 mg PO .COMPLEX supplement 07/10/24 food supplemt, lactose-reduced 0.08 gram-1.5 kcal/mL oral liquid (Ensure Plus High Protein) 120 ml PO TIDCM #30 mL 07/11/24 potassium chloride 10 mEq capsule,extended release 20 meq (2 x 10 mEq) PO DAILY supplement 30 days #90 caps 07/15/24 sennosides 8.6 mg-docusate sodium 50 mg tablet (Stimulant Laxative Plus) 2 tab PO BID PRN constipation #0 tabs 07/15/24 vancomycin 125 mg capsule (Vancocin) 125 mg PO Q6H 2 weeks #56 caps 07/15/24 Physical Exam Narrative Seen and examined. Her symptoms of nausea vomiting abdominal pain and diarrhea has resolved. No fever. Advised health [employer]ze[employer], contact precaution and sterilization of common touch objects First-time C. difficile infection/colitis Physical exam General: Alert, Oriented x3, Cooperative HEENT: Atraumatic, PERRLA, EOMI, Normocephalic Oral: Oral mucosa dry. No Gingival or Mucosal Lesions/ Ulcerations Neck: Supple, No JVD, Negative Carotid Bruits Chest wall/Lungs: Air entry diminished in bilateral lung bases. No crepitation/rhonchi Cardiovascular: Regular rate, Regular Rhythm, Normal S1, Normal S2, No M/G/R. No tenderness at xiphisternum. Abdomen: Bowel Sounds Present, Soft, tenderness present over bilateral lower quadrants and left upper quadrant. : No dysuria. No renal angle tenderness. No suprapubic tenderness. Extremities: No edema, Capillary Refill Less than 3 Seconds Skin: No rashes, No breakdown Musculoskeletal: No Tenderness to Palpation of Joints or Extremities Neurological: Cranial nerves II-XII grossly intact, DTR 2+/4. No acute focal neurological deficit. Psych/Mental Status: Normal Affect, Appropriate. Medical Records Data Medical Nutrition Assessment Dietitian: Malnutrition Criteria Met Start: 07/14/24 11:20 Freq: Status: Active Protocol: Document 07/14/24 11:20 SB (Rec: 07/14/24 11:20 SB [id number]) Nutrition Malnutrition Evidence of Yes Malnutrition Exists Malnutrition (severe Chronic ): Evidenced By Suboptimal Energy Intake (Severe),Weight Loss (Severe) Clinical Problem Chronic Disease or Condition Related Malnutrition Etiology severe related to inadequate oral intake Signs/Symptoms as evidenced by PO meeting <50% of estimated nutrition needs x 3 months and 14% unintentional weight loss x 4 months. Status Active Problem Recommendation Dietitian Recommend advanced diet as tolerated to liberal regular Recommendations/ due to signs and symptoms of malnutrition. Changes Will order chocolate fortified pudding TID with meals. Will monitor weight trends. Weight / BMI Weight Weight: 166 lb 7.184 oz Body Mass Index (BMI) 30.4 ABG / Lab / Microbiology Data 07/15/24 09:04 07/15/24 09:04 Laboratory: Laboratory Results - last 24 hr 07/15/24 09:04: WBC 6.4, RBC 2.54 L, Hgb 7.8 L, Hct 24.3 L, MCV 95.7, MCH 30.7, MCHC 32.1, RDW Std Deviation 50.4 H, RDW Coeff of Valdemar 14.6, Plt Count 120 L, MPV 8.3, Immature Gran % (Auto) 0.600, Neut % (Auto) 67.1, Lymph % (Auto) 21.4, Gem % (Auto) 10.4 H, Eos % (Auto) 0.2, Baso % (Auto) 0.3, Absolute Neuts (auto) 4.3, Absolute Lymphs (auto) 1.36, Nucleated RBC % 0.3, Sodium 137, Potassium 3.0 L, Chloride 102, Carbon Dioxide 25.1, Anion Gap 9, BUN 8, Creatinine 0.50 L, Estim Creat Clear Calc 112.40, Est GFR (MDRD) Non-Af 107, BUN/Creatinine Ratio 17.0, Glucose 83, Calcium 7.8, Phosphorus 3.0, Magnesium 2.0 Microbiology: Microbiology 07/13/24 17:35 Stool Stool Lactoferrin - Final 07/13/24 17:35 Stool Enteric Bacteriology - Final 07/13/24 17:35 Stool C. difficile GDH Antigen & Toxins - Final 07/13/24 17:35 Stool Clostridioides difficile (PCR) - Final 07/13/24 13:55 Mucosa - Nose SARS-CoV-2, Influenza & RSV (PCR) - Final 07/13/24 14:36 Stool Stool Occult Blood (MARCELINA) - Final D/C Instructions Discharge Diet: Light diet - advance as tolerated Weight Bearing Status: Weight bearing as tolerated Call your doctor if you observe: Fever of 101 or Higher, Coldness, Increased Pain, Numbness or Tingling, Change in Color, Inability to urinate, Inability to have a bowel movement, Shortness of breath, Dizziness, Fainting spells, Swelling in the ankles, Chest pain, Prolonged hiccupping, Increased palpitations (irregular heartbeat) and Calf discomfort DC O2, CPAP, BIPAP Needs Home O2 Discharge instructions: No When: IN 2 WEEKS Meaningful Use Info Meaningful Use Meaningful Use Diagnoses (Choose all that apply): None applicable Ischemic Stroke Statin Dosing Therapy Reference: STATIN DOSE THERAPY REFERENCE: * Patients > 75 years receive moderate or high dose statin therapy. * Patients 75 years or YOUNGER should receive HIGH intensity statin dose unless contraindicated. You will be required to document reason for non-treatment if statin daily dose does not meet guidelines. HIGH DOSE STATIN THERAPY DAILY Atorvastatin > than or = to 40 mg Rosuvastatin > than or = to 20 mg Amlodipine + Atorvastatin > than or = to 2.5/40 mg Ezetimibe + Simvastatin 10/80 mg Simvastatin 80mg Discharge Plan Admission Admit Date/Time: 07/13/24 17:25 Attending Provider: Rc Landin Primary Care Provider: Keren Bustamante Consulting Providers: Eladio Matute Discharge Orders/Prescriptions Prescriptions: New vancomycin [Vancocin] 125 mg capsule 125 mg PO Q6H 14 Days Qty: 56 0RF Continued metaxalone 800 mg tablet 400 - 800 mg PO TID PRN (Reason: muscle spasm) Folbee 2.5-25-1 mg tablet 1 tab PO DAILY Patient Comments: PT UNSURE IF SHE IS TAKING. cholecalciferol (vitamin D3) [Vitamin D3] 50 mcg (2,000 unit) tablet 2,000 unit PO DAILY Patient Comments: PT STATES SHE IS TAKING OTC AND RX, BUT IS NOT SURE WHICH SHE IS TAKING. oxycodone-acetaminophen 7.5-325 mg tablet 1 tab PO BID PRN (Reason: Pain) Patient Comments: PT KNOWS SHE TAKES A PAIN MEDICATION, UNSURE OF WHICH prednisone 5 mg tablet 5 mg PO DAILY PRN (Reason: RHEUMATOID ARTHRITIS FLARE) Patient Comments: PT HAS NOT TAKEN IN AWHILE BUT CAN IF SHE NEEDS TO. ondansetron 4 mg tablet,disintegrating 4 mg PO Q6H PRN (Reason: nausea and vomiting) Qty: 15 0RF hydroxychloroquine 200 mg tablet 200 mg PO BID metformin 500 mg tablet extended release 24 hr 500 mg PO DAILY paroxetine HCl 30 mg tablet 40 mg PO DAILY tizanidine 2 mg Tablet 2 mg PO Q6H PRN PRN (Reason: SPASMS) Qty: 0 0RF carvedilol 12.5 mg tablet 12.5 mg PO BID 30 Days Qty: 60 2RF Rx Instructions: must administer with a meal/food methotrexate sodium 25 mg/mL solution 15 mg subcut WE famotidine 20 mg tablet 20 mg PO QHS PRN (Reason: gerd) triamcinolone acetonide 0.1 % cream 1 applic topical BID omega-3 acid ethyl esters 1 gram capsule 2 cap PO BID atorvastatin 40 mg tablet 40 mg PO QHS gabapentin 800 mg tablet 800 mg PO .COMPLEX Rx Instructions: 800 mg orally; TAKE 1.5 TABLETS IN THE MORNING, 1/2 TABLET IN AFTERNOON, AND 1.5 TABLETS IN EVENING.; esomeprazole magnesium 40 MG capsule 40 mg PO BID acetaminophen 500 mg tablet 1,000 mg PO TID PRN PRN (Reason: pain) clobetasol 0.05 % ointment 1 applic topical .COMPLEX Rx Instructions: 1 applic topically 2-3x per week; cyanocobalamin (vitamin B-12) 500 mcg tablet 500 mcg PO .COMPLEX Rx Instructions: 500 mcg orally As directed; diphenhydramine-acetaminophen [Acetadryl] 25-500 mg tablet 1 tab PO QHS PRN (Reason: sleep) folic acid 1 mg tablet 1 mg PO DAILY morphine [MS Contin] 15 mg tablet extended release 15 mg PO TID oxybutynin chloride 10 mg tablet extended release 24hr 10 mg PO DAILY polyethylene glycol 3350 [Miralax] 17 gram/dose powder 17 g PO DAILY PRN (Reason: constipation) pyridoxine (vitamin B6) 100 mg tablet 100 mg PO .COMPLEX Rx Instructions: 100 mg orally; Saccharomyces boulardii [Florastor] 250 mg capsule 250 mg PO BID naloxone 4 mg/actuation spray,non-aerosol 1 spray intranasal Q3M PRN (Reason: overdose) Rx Instructions: spray 1 dose into ONE nostril; alternate nostrils w each dose until help arrives Ensure Plus High Protein 0.08 gram-1.5 kcal/mL Liquid 120 ml PO TIDCM Qty: 30 0RF Eliquis 5 mg tablet 5 mg PO BID Qty: 60 11RF Changed potassium chloride 10 mEq capsule, extended release 20 meq PO DAILY 30 Days Qty: 90 3RF sennosides-docusate sodium [Stimulant Laxative Plus] 8.6-50 mg Tablet 2 tab PO BID PRN (Reason: constipation) Qty: 0 0RF Rx Instructions: [id number] Discontinued hydroxyzine pamoate 25 mg capsule 25 - 50 mg PO TID PRN docusate sodium 100 mg capsule 100 mg PO BID Referrals / Follow Up: Keren Bustamante MD [Primary Care Provider] - Hola Leong MD [Med Staff - Active Staff] - Within 1 Month (As needed if needed for C. difficile diarrhea) Disposition Disposition (needs filled in before D/C Order can be placed): Home, Self Care Charges/Coding Visit Charges Inpatient E&M: 53301 Disch Hosp >30min
--- NOTE | 2024-07-15 13:38 | PHA.DC_ITS ---
Pharmacy [facility] has performed discharge medication reconciliation and counseling for this patient. 1. VANCOMYCIN 125MG PO Q6 X 14 DAYS 2. STOP VISTARIL AND DOCUSATE 3. SENNA/DOCUSATE CHANGED TO PRN 4. POTASSIUM CHLORIDE CHANGED TO 20MEQ DAILY The patient's discharge medication list was reviewed for discrepancies and discrepancies were resolved. The patient was counseled on the following discharge medications and changes in medications for homegoing were reviewed. The Reason for Use, instructions for use, and potential side effects were reviewed for all new medications. The patient's questions regarding all of their medications were answered. The patient was able to verbally demonstrate an understanding of their discharge medications. Medications at Discharge Home Medications cholecalciferol (vitamin D3) 50 mcg (2,000 unit) tablet (Vitamin D3) 2,000 unit PO DAILY vitamin 12/14/20 folic acid-vit B6-vit B12 2.5 mg-25 mg-1 mg tablet (Folbee) 1 tab PO DAILY supplement 12/14/20 oxycodone-acetaminophen 7.5 mg-325 mg tablet 1 tab PO BID PRN Pain 12/16/20 prednisone 5 mg tablet 5 mg PO DAILY PRN RHEUMATOID ARTHRITIS FLARE 12/16/20 metaxalone 800 mg tablet 400 - 800 mg PO TID PRN muscle spasm 07/17/23 ondansetron 4 mg disintegrating tablet 4 mg PO Q6H PRN nausea and vomiting #15 tabs 07/22/23 apixaban 5 mg tablet (Eliquis) 5 mg PO BID afib #60 tabs 01/21/24 hydroxychloroquine 200 mg tablet 200 mg PO BID itching 04/06/24 metformin 500 mg tablet,extended release 24 hr 500 mg PO DAILY diabetes 04/06/24 paroxetine HCl 30 mg tablet 40 mg PO DAILY depression 04/06/24 tizanidine 2 mg tablet 2 mg PO Q6H PRN PRN SPASMS #0 tabs 05/28/24 carvedilol 12.5 mg tablet 12.5 mg PO BID FOR HEART 1 month #60 tabs 05/29/24 atorvastatin 40 mg tablet 40 mg PO QHS cholesterol 07/09/24 esomeprazole magnesium 40 mg capsule,delayed release 40 mg PO BID reflux 07/09/24 famotidine 20 mg tablet 20 mg PO QHS PRN gerd 07/09/24 gabapentin 800 mg tablet 800 mg PO .COMPLEX nueropathy 07/09/24 methotrexate sodium 25 mg/mL injection solution 15 mg subcut WE 07/09/24 omega-3 acid ethyl esters 1 gram capsule 2 cap PO BID 07/09/24 triamcinolone acetonide 0.1 % topical cream 1 applic topical BID 07/09/24 Saccharomyces boulardii 250 mg capsule (Florastor) 250 mg PO BID probiotic 07/10/24 acetaminophen 500 mg tablet 1,000 mg PO TID PRN PRN pain 07/10/24 clobetasol 0.05 % topical ointment 1 applic topical .COMPLEX itching 07/10/24 cyanocobalamin (vitamin B-12) 500 mcg tablet 500 mcg PO .COMPLEX supplement 07/10/24 diphenhydramine 25 mg-acetaminophen 500 mg tablet (Acetadryl) 1 tab PO QHS PRN sleep 07/10/24 folic acid 1 mg tablet 1 mg PO DAILY supplement 07/10/24 morphine 15 mg tablet,extended release (MS Contin) 15 mg PO TID pain 07/10/24 naloxone 4 mg/actuation nasal spray 1 spray intranasal Q3M PRN overdose 07/10/24 oxybutynin chloride 10 mg tablet,extended release 24 hr 10 mg PO DAILY bladder 07/10/24 polyethylene glycol 3350 17 gram/dose oral powder (Miralax) 17 g PO DAILY PRN constipation 07/10/24 pyridoxine (vitamin B6) 100 mg tablet 100 mg PO .COMPLEX supplement 07/10/24 food supplemt, lactose-reduced 0.08 gram-1.5 kcal/mL oral liquid (Ensure Plus High Protein) 120 ml PO TIDCM #30 mL 07/11/24 potassium chloride 10 mEq capsule,extended release 20 meq (2 x 10 mEq) PO DAILY supplement 30 days #90 caps 07/15/24 sennosides 8.6 mg-docusate sodium 50 mg tablet (Stimulant Laxative Plus) 2 tab PO BID PRN constipation #0 tabs 07/15/24 vancomycin 125 mg capsule (Vancocin) 125 mg PO Q6H 2 weeks #56 caps 07/15/24
--- NOTE | 2024-07-15 13:55 | CASEMGMT ---
Patient has order for discharge. Patient is discharging on PO Vancomycin capsules, DADA HALL called [facility] [employer] [employer], they are out of stock but patient was covered for medication 100% and no copay needed. DADA HALL in to discuss needs at discharge. RN ISABEL updated patient that [facility] retail is out of PO Vanco and patient would like prescription sent to [facility]. RN CM updated patient that she does not have copay with medications. Patient inquried about cleaning services. RN ISABEL updated patient that she would have to pay out of pocket for cleaning services. DADA HALL provided information on how to clean home and laundry after C-diff infection. Patient wishes to return home with resumption of [facility]. Patient had no further questions or concerns. DADA HALL updated discharge manager business planning to send discharge paperwork to [facility]. Discharge plan updated. DADA HALL called [facility] and requested PO Vanco script be transferred to [facility] per patient's requests.
--- NOTE | 2024-07-15 13:57 | CASEMGMT ---
Discharge Planning Discharge Instructions sent to N. Penny Nunes DC Planning Asst.
[2024-07-15 15:15] VITALS: BP 99/59; PULSE 78; RESP 17; TEMP 37; O2SAT 93
== END 2024-07-15 18:56 | disposition home health service (06) | DRG 371 ==
LOC: ED 18:12 → PCU 19:24
PROVIDERS: Admitting Provider Hospitalist; Emergency Provider Emergency Medicine; PCP Internal Medicine; Referring Provider Hospitalist; Visit Provider Internal Medicine
DX: A04.72 Enterocolitis due to Clostridium difficile, not specified as recurrent (principal); E43 Unspecified severe protein-calorie malnutrition; I24.89 Other forms of acute ischemic heart disease; M80.0AXA Age-related osteoporosis with current pathological fracture, other site, initial encounter for fracture; S09.90XA Unspecified injury of head, initial encounter; G25.3 Myoclonus; E86.0 Dehydration; M06.9 Rheumatoid arthritis, unspecified; I10 Essential (primary) hypertension; F32.A Depression, unspecified; I35.0 Nonrheumatic aortic (valve) stenosis; E66.811 Obesity, class 1; I48.0 Paroxysmal atrial fibrillation; E78.5 Hyperlipidemia, unspecified; I25.10 Atherosclerotic heart disease of native coronary artery without angina pectoris; E83.42 Hypomagnesemia; K21.9 Gastro-esophageal reflux disease without esophagitis; E87.6 Hypokalemia; I95.9 Hypotension, unspecified; W18.30XA Fall on same level, unspecified, initial encounter; G89.29 Other chronic pain; Z79.01 Long term (current) use of anticoagulants; R59.0 Localized enlarged lymph nodes; Z79.52 Long term (current) use of systemic steroids; Z68.30 Body mass index [BMI] 30.0-30.9, adult; R79.89 Other specified abnormal findings of blood chemistry; N32.81 Overactive bladder; Z87.891 Personal history of nicotine dependence; Z86.16 Personal history of COVID-19; Z79.899 Other long term (current) drug therapy; Z95.5 Presence of coronary angioplasty implant and graft; T50.995A Adverse effect of other drugs, medicaments and biological substances, initial encounter; R53.81 Other malaise; R55 Syncope and collapse
CPT/HCPCS: 36415; 70450; 71250; 72125; 74176; 80048; 81001; 82274; 83605; 83630; 83690; 83735; 84100; 84484; 85025; 85027; 87493; 87506; 87631; 93005; 97110; 97116; 97162; 97166; 97802; 99285; A4216; J2405

== ENCOUNTER 2024-07-24 11:11 | Emergency (ER) | payer MEDICARE, SELFPAY ==
[2021-03-31 10:10] VITALS: BMI 34.4
[2024-07-24] VITALS (9 sets, daily range): BP systolic 81–101; BP diastolic 46–71; PULSE 79–87; RESP 16–19; TEMP 36.4–36.8; O2SAT 98–100
--- NOTE | 2024-07-24 12:49 | EX.ED.DYSGE1 ---
HPI History of Present Illness Chief Complaint: Hypotension Narrative Narrative: Patient is a 63-year-old female who is presenting to the ER with chief complaint of hypotension, lower back pain, and patient is currently on antibiotics for an infection. Patient in February 2024 had a new pain stimulator placed. In March 2024, patient had the new pain stimulator every removed. It was infected. Patient was in the hospital for antibiotics. Patient had a PICC line placed at that time. Patient had the PICC line removed and the end of May approximately, PICC line was in for 2 months with IV antibiotics. An approximate 1 and half weeks ago, patient fell in the bathtub. Patient was admitted and discharged after approximately 5 days. Patient lives at home by herself, patient ex-boyfriend is at bedside. Patient discharged from the hospital 7 days ago, last Saturday. Patient had a home health nurse evaluating her today. It was noted that patient was hypoxic and hypotensive. Patient does not wear any oxygen at home. When patient arrived to the ER, she has never been hypoxic. She been 90 to 100% on room air the entire time. Patient looks well despite hypotension. She has no headache or neck pain. No chest pain or shortness of breath. No abdominal pain nausea vomiting. Patient has had extensive diarrhea in the past several months as well secondary to all the antibiotics. Patient is currently on antibiotics for C. difficile. Patient's stool is now more consistent and C. difficile is resolving. [facility] Medical History History of left heart catheterization (LHC) (~11/22/21) Atherosclerotic heart disease of [place] coronary artery without angina pectoris Abnormal stress test Decreased left ventricular function Essential hypertension Hyperlipidemia Former smoker Acute coronary syndrome Injury of fifth cervical spinal cord Spinal cord stimulator status Chronic pain Arthritis Depression GERD (gastroesophageal reflux disease) Insomnia Neuropathic pain Rheumatoid arthritis Morbid obesity Debility Home Medications ?Medication ?Instructions ?Recorded ?Last Taken ?Type cholecalciferol (vitamin D3) 50 2,000 unit PO DAILY vitamin 12/14/20 07/24/24 History mcg (2,000 unit) tablet (Vitamin D3) oxycodone-acetaminophen 7.5 mg-325 1 tab PO BID PRN Pain 12/16/20 Unknown History mg tablet prednisone 5 mg tablet 5 mg PO DAILY PRN RHEUMATOID 12/16/20 Unknown History ARTHRITIS FLARE metaxalone 800 mg tablet 400 - 800 mg PO TID PRN muscle 07/17/23 07/09/24 History spasm apixaban 5 mg tablet (Eliquis) 5 mg PO BID afib #60 tabs 01/21/24 07/24/24 Rx hydroxychloroquine 200 mg tablet 200 mg PO BID itching 04/06/24 07/24/24 History metformin 500 mg tablet,extended 500 mg PO DAILY diabetes 04/06/24 07/24/24 History release 24 hr paroxetine HCl 30 mg tablet 30 mg PO DAILY depression 04/06/24 07/24/24 History carvedilol 12.5 mg tablet 12.5 mg PO BID FOR HEART 1 month 05/29/24 07/24/24 Rx #60 tabs atorvastatin 40 mg tablet 40 mg PO QHS cholesterol 07/09/24 07/23/24 History esomeprazole magnesium 40 mg 40 mg PO BID reflux 07/09/24 07/24/24 History capsule,delayed release famotidine 20 mg tablet 20 mg PO QHS PRN gerd 07/09/24 07/23/24 History gabapentin 800 mg tablet 1,200 mg PO BID nueropathy 07/09/24 07/24/24 History methotrexate sodium 25 mg/mL 15 mg subcut WE 07/09/24 07/22/24 History injection solution acetaminophen 500 mg tablet 1,000 mg PO TID PRN pain 07/10/24 07/24/24 History clobetasol 0.05 % topical ointment 1 applic topical .COMPLEX itching 07/10/24 Unknown History cyanocobalamin (vitamin B-12) 500 500 mcg PO UD supplement 07/10/24 Unknown History mcg tablet Held on 07/24/24. Instructions: MD Ordered diphenhydramine 25 1 tab PO QHS PRN sleep 07/10/24 Unknown History mg-acetaminophen 500 mg tablet (Acetadryl) morphine 15 mg tablet,extended 15 mg PO TID pain 07/10/24 07/24/24 History release (MS Contin) naloxone 4 mg/actuation nasal spray 1 spray intranasal Q3M PRN overdose 07/10/24 Unknown History pyridoxine (vitamin B6) 100 mg 100 mg PO DAILY supplement 07/10/24 Unknown History tablet vancomycin 125 mg capsule 125 mg PO Q6H 2 weeks #56 caps 07/15/24 07/24/24 Rx (Vancocin) ciprofloxacin HCl 500 mg tablet 500 mg PO BID #6 TABLETS 07/24/24 Unknown Rx gabapentin 800 mg tablet 800 mg PO 1200 07/24/24 07/23/24 History lisinopril 5 mg tablet 5 mg PO DAILY #90 TABLETS 07/24/24 Unknown Rx potassium chloride 10 mEq 10 meq PO DAILY supplement 07/24/24 07/24/24 History capsule,extended release tizanidine 2 mg tablet 2 mg PO Q6H PRN SPASMS 07/24/24 Unknown History Allergy/AdvReac Type Severity Reaction Status Date / Time adhesive Allergy blisters Verified 07/24/24 11:14 codeine AdvReac Nausea Verified 07/24/24 11:14 Family History Father CAD (coronary artery disease) Other Heart disease Surgical History History of appendectomy Previous back surgery Social History household members: spouse housing: apartment Smoking Status: Former smoker ROS ROS ED ROS Narrative REVIEW OF SYSTEMS: Unless otherwise stated in this report the patient's positive and negative responses for review of systems for constitutional, eyes, ENT, cardiovascular, respiratory, gastrointestinal, neurological, , musculoskeletal, and integument systems and related systems to the presenting problem are either stated in the history of present illness or were not pertinent or were negative for the symptoms and/or complaints related to the presenting medical problem. EXAM Physical Exam Narrative Exam Narrative: Vital signs reviewed and patient is not hypoxic. General: The patient appears well and in no apparent distress. Patient is resting comfortably on cart. Not toxic, lethargic, or listless. Patient sitting in bed, looks well, drinking water. Skin: Warm, dry, no pallor noted. There is no rash noted. Patient surgical incision sites look well, no signs of redness, erythema, no palpable abscess, no other acute findings. No signs of infection. Head: Normocephalic, atraumatic Eye: Normal conjunctiva, no drainage, EOMI. PERRL. Ears, Nose, Mouth, and Throat: oral mucosa is slightly dry. Nares patent. Mouth without vesicles. Cardiovascular: Regular Rate and Rhythm, no murmurs, gallops, or rubs Respiratory: Patient is in no distress, no accessory muscle use, lungs are clear to auscultation, no wheezing, rales or rhonchi Back: non-tender, no CVA tenderness bilaterally to percussion. NO CTLS midline or paraspinal tenderness to palpation. GI: Soft, no tenderness to palpation, no masses appreciated. No rebound, guarding, or rigidity noted. Musculoskeletal: The patient has full range of motion of all extremities and joints with no difficulty. Patient has no motor, no sensory deficits. Neurological: A&O x4, normal speech, no focal neurological deficits. Psychiatric: Cooperative Const Vital Signs: 07/24/24 11:14 07/24/24 11:30 07/24/24 11:31 Temperature 97.5 F L Temperature Source Oral Pulse Rate 79 Respiratory Rate 16 Respiratory Effort Normal Non-Labored Normal Non-Labored Respiratory Depth Normal Respiratory Pattern Normal Normal Blood Pressure 86/55 L Blood Pressure Mean 65 Pulse Ox 100 Oxygen Delivery Method Room Air Room Air 07/24/24 12:17 07/24/24 13:00 07/24/24 13:06 Temperature 98.3 F 98.3 F Temperature Source Oral Oral Pulse Rate 87 80 Respiratory Rate 18 16 Respiratory Effort Respiratory Depth Respiratory Pattern Blood Pressure 84/64 L 81/71 L Blood Pressure Mean 70 74 Pulse Ox 98 98 98 Oxygen Delivery Method Room Air 07/24/24 14:00 07/24/24 14:57 07/24/24 15:00 Temperature 98 F 98.3 F Temperature Source Temporal Oral Pulse Rate 80 83 Respiratory Rate 19 H 18 Respiratory Effort Respiratory Depth Respiratory Pattern Blood Pressure 100/57 L 83/46 L 100/50 L Blood Pressure Mean 71 58 66 Pulse Ox 100 98 Oxygen Delivery Method 07/24/24 15:26 07/24/24 16:12 Temperature 98.3 F Temperature Source Pulse Rate 80 Respiratory Rate 18 Respiratory Effort Respiratory Depth Respiratory Pattern Blood Pressure 96/71 101/63 Blood Pressure Mean 79 75 Pulse Ox 98 Oxygen Delivery Method MDM MDM MDM Narrative Medical decision making narrative: I was able to pickle processor this chart and see and evaluate patient triage note at 1250. I was not aware of the hypotension that was noted at 1115, no communication to myself or Dr Oilvera Patient looks well. Patient was hypotensive when she initially arrived. Patient seen and examined: Dehydration and hypoxia. Patient has not been hypoxic in the ER at all. Patient has been on 100% oxygen on room air the entire time she has been here. Patient initially was hypotensive, patient was given IV fluids and sepsis workup. Patient looks well, sitting in bed, drinking water, patient does not look sick despite lower blood pressure. Differential diagnosis includes but is not limited to: Sepsis, hypoxia, pleural effusion, pneumonia, infiltrate, UTI, electrolyte abnormality, dehydration, acute renal failure Relevant laboratory interpretation: Patient hemoglobin 9.3, hematocrit 31, patient BUN is 20, creatinine 2.1. Patient has evidence of UTI as well. Radiological studies: Chest x-ray shows no acute cardiopulmonary disease, no infiltrate, no effusion. Reevaluation: Patient felt better after 1 L of IV fluid. Patient will have repeat of 1 L of IV fluid. Patient was given short prescription for Cipro, urine culture is pending. Social barriers to healthcare: There are no food insecurities, there is no issue with transportation, there are no insurance barriers Disposition: Patient given 2 L of IV fluid. Patient be given prescription for Cipro. Patient does not want to be admitted to the hospital. Patient will follow-up with PCP for repeat lab testing and urine testing next week. Patient felt much better after IV fluids. Patient is drinking water with no difficulty. No questions discharge Diagnosis: UTI, dehydration, QUENTIN Lab Data Attestation: I reviewed the patient's lab results. Labs: Laboratory Results - last 24 hr 07/24/24 07/24/24 12:59 14:02 WBC 6.4 RBC 3.01 L Hgb 9.3 L Hct 31.0 L MCV 103.0 H MCH 30.9 MCHC 30.0 L RDW Std Deviation 58.6 H RDW Coeff of Valdemar 15.3 H Plt Count 324 MPV 8.8 Immature Gran % (Auto) 0.300 Neut % (Auto) 42.7 L Lymph % (Auto) 32.5 Jones % (Auto) 17.4 H Eos % (Auto) 6.6 H Baso % (Auto) 0.5 Absolute Neuts (auto) 2.7 Absolute Lymphs (auto) 2.07 Nucleated RBC % 0 PT 17.1 H INR 1.4 APTT 29.6 Sodium 139 Potassium 5.1 Chloride 101 Carbon Dioxide 23.7 Anion Gap 14 BUN 28 H Creatinine 2.10 H Est GFR (MDRD) Non-Af 26 L BUN/Creatinine Ratio 13.4 Glucose 81 Lactic Acid 1.2 Calcium 8.8 Total Bilirubin 0.19 AST 24 ALT 16 Alkaline Phosphatase 88 Total Protein 5.9 Albumin 3.3 L Globulin 2.6 Albumin/Globulin Ratio 1.3 Urine Color Yellow Urine Clarity Sl. Cloudy Urine pH 5.0 Ur Specific [place] 1.030 Urine Protein 30 H Urine Glucose (UA) Normal Urine Ketones 5 H Urine Occult Blood 10 H Urine Nitrite Negative Urine Bilirubin 1 H Urine Urobilinogen Normal Ur Leukocyte Esterase 100 H Urine RBC 0 SEEN Urine WBC 5-10 SEEN Ur Squamous Epith Cells 0-5 SEEN Calcium Oxalate Crystal 1+ Urine Bacteria 0 SEEN Urine Mucus 0 SEEN Radiography Diagnostic Testing: Clinical Impression(s) from Imaging Studies Chest X-Ray 07/24/24 12:51 IMPRESSION: Mild streaky bibasilar pulmonary opacities, possibly due to atelectasis or infiltrate. Reading Location: [facility] EKG Initial EKG: Attestation: I personally reviewed and interpreted this EKG as follows: (EKG interpretation. Normal sinus rhythm at 74 beats minute axis deviation. No acute ST elevation, no acute ectopy. QTc of 490.) Discharge Plan Triage Chief Complaint: Hypotension Other Complaint: Shortness of Breath ED Provider: Don Pierre Dx/Rx/DC Orders Clinical Impression: UTI (urinary tract infection), Acute dehydration, QUENTIN (acute kidney injury) Instructions: UTIs, ED Dehydration (Adult) Prescriptions: New ciprofloxacin HCl 500 mg tablet 500 mg PO BID Qty: 6 0RF No Action metaxalone 800 mg tablet 400 - 800 mg PO TID PRN (Reason: muscle spasm) cholecalciferol (vitamin D3) [Vitamin D3] 50 mcg (2,000 unit) tablet 2,000 unit PO DAILY oxycodone-acetaminophen 7.5-325 mg tablet 1 tab PO BID PRN (Reason: Pain) prednisone 5 mg tablet 5 mg PO DAILY PRN (Reason: RHEUMATOID ARTHRITIS FLARE) Patient Comments: PT HAS NOT TAKEN IN AWHILE BUT CAN IF SHE NEEDS TO. vancomycin [Vancocin] 125 mg capsule 125 mg PO Q6H 14 Days Qty: 56 0RF Patient Comments: START DATE- 03/19/25 potassium chloride 10 mEq capsule, extended release 10 meq PO DAILY tizanidine 2 mg Tablet 2 mg PO Q6H PRN (Reason: SPASMS) gabapentin 800 mg tablet 800 mg PO 1200 Rx Instructions: TAKE 1.5 TABS IN AM, 1 IN NOON, 1.5 PM hydroxychloroquine 200 mg tablet 200 mg PO BID metformin 500 mg tablet extended release 24 hr 500 mg PO DAILY paroxetine HCl 30 mg tablet 30 mg PO DAILY carvedilol 12.5 mg tablet 12.5 mg PO BID 30 Days Qty: 60 2RF Rx Instructions: must administer with a meal/food methotrexate sodium 25 mg/mL solution 15 mg subcut WE famotidine 20 mg tablet 20 mg PO QHS PRN (Reason: gerd) atorvastatin 40 mg tablet 40 mg PO QHS gabapentin 800 mg tablet 1,200 mg PO BID Rx Instructions: TAKE 1.5 TABS IN AM, 1 IN NOON, 1.5 PM esomeprazole magnesium 40 MG capsule 40 mg PO BID acetaminophen 500 mg tablet 1,000 mg PO TID PRN (Reason: pain) clobetasol 0.05 % ointment 1 applic topical .COMPLEX Rx Instructions: 1 applic topically 2-3x per week; cyanocobalamin (vitamin B-12) 500 mcg tablet 500 mcg PO UD diphenhydramine-acetaminophen [Acetadryl] 25-500 mg tablet 1 tab PO QHS PRN (Reason: sleep) morphine [MS Contin] 15 mg tablet extended release 15 mg PO TID pyridoxine (vitamin B6) 100 mg tablet 100 mg PO DAILY Patient Comments: PT ONLY TAKES SPARINGLY naloxone 4 mg/actuation spray,non-aerosol 1 spray intranasal Q3M PRN (Reason: overdose) Rx Instructions: spray 1 dose into ONE nostril; alternate nostrils w each dose until help arrives Eliquis 5 mg tablet 5 mg PO BID Qty: 60 11RF lisinopril 5 mg tablet 5 mg PO DAILY Qty: 90 3RF Primary Care Provider: Keren Bustamante Referrals: Keren Bustamante MD [Primary Care Provider] - Activity Restrictions/Additional Instructions: increase fluids, Gatorade, Powerade, water. Finish your antibiotic. You were given 2 L of IV fluid in the ER for hydration. Follow-up with PCP next week for further testing. He had mild anemia, your hemoglobin level is 9. normal is 12?15. Your kidney function has been affected slightly from dehydration, Follow- Print Language: Cook Islander Disposition Disposition: Home, Self Care Discharge Date/Time: 07/24/24 16:13
--- NOTE | 2024-07-24 12:51 | RAD_ITS ---
PROCEDURE: CHEST 1 VIEW (PORTABLE) 07/24/2024 REASON FOR EXAM: LOW BP TECHNIQUE: Frontal view of the chest. COMPARISON: 07/09/2024 FINDINGS: Mild streaky bibasilar pulmonary opacities. No pleural effusion or pneumothorax. The cardiomediastinal silhouette is unremarkable. No acute osseous or soft tissue abnormality. Cervical fusion noted at the lower cervical spine. RAD/Chest 1 View (Portable) IMPRESSION: Mild streaky bibasilar pulmonary opacities, possibly due to atelectasis or infi ltrate. [facility]
--- NOTE | 2024-07-24 12:51 | EKG12_ITS ---
Test Reason : HYPOTENSION Blood Pressure : */* mmHG Vent. Rate : 74 BPM Atrial Rate : 74 BPM P-R Int : 152 ms QRS Dur : 78 ms QT Int : 442 ms P-R-T Axes : 22 4 21 degrees QTcB Int : 490 ms Normal sinus rhythm Prolonged QT Abnormal ECG Confirmed by ARABELLA RUBIO MD ([id number]), commercial production editor TORI KAM ([id number]) on 07/27/2024 9:17:23 AM Referred By: DEBORAH Confirmed By: ARABELLA RUBIO MD
[2024-07-24] MEDS: 0.9% Normal Saline (1000mL) 1,000 ML 999 ML IV ×2 (13:07→14:56)
[2024-07-24 13:10] LABS: Absolute Lymphocyte Count 2.07 X10^3/uL (0.83-4.51); Absolute Neutrophil Count 2.7 X10^3/uL (2.0-7.7); Basophil# 0.03 X10^3/uL; Basophil% 0.5 % (0-1); Eosinophil# 0.42 X10^3/uL; Eosinophils% 6.6 % (0-5); Hemoglobin 9.3 g/dL (12.0-15.0); Lymphocyte # 2.07 X10^3/ul (0.83-4.51); Lymphocyte % 32.5 % (19-41); Mean Corpuscular Hgb 30.9 pg (27.0-32.0); Mean Platelet Vol. 8.8 fl (6.2-12.0); Monocyte# 1.11 X10^3/uL; Monocyte% 17.4 % (0-10); NRBC Flagged by Analyzer 0 % (0-5); Neutrophil # 2.72 X10^3/uL (2.7-7.7); Neutrophil % 42.7 % (47-70); Platelet Count 324 K/mm3 (150-450); RBC Distribution Width CV 15.3 % (11.6-14.6); RBC Distribution Width SD 58.6 fl (35.1-43.9); Red Blood Count 3.01 M/mm3 (4.2-5.4); White Blood Count 6.4 K/mm3 (4.4-11.0)
[2024-07-24 13:20] LABS: International Normalized Ratio 1.4; Partial Thromboplast Time 29.6 Seconds (24.1-36.2); Prothrombin Time (Protime)PT. 17.1 SECONDS (11.7-14.9)
[2024-07-24 13:35] LABS: Lactic Acid 1.2 mmol/L (0.0-2.0)
[2024-07-24 13:37] LABS: ALB/GLOB Ratio 1.3 RATIO (0.9-2.4); AST(SGOT) 24 U/L (<=31); Alanine Aminotransfer ALT/SGPT 16 U/L (<=34); Albumin, Serum 3.3 g/dL (3.4-4.8); Alkaline Phosphatase 88 U/L (35-104); Anion Gap 14 (5-15); BUN 28 mg/dL (4-19); BUN/Creat Ratio 13.4 RATIO (10-20); Calcium,Total 8.8 mg/dL (7.6-11.0); Carbon Dioxide 23.7 mmol/L (21.0-32.0); Chloride 101 mmol/L (98-108); EST Glomerular Filtration Rate 26 (>60); Globulin 2.6 g/dL (2.2-4.2); Glucose 81 mg/dL (70-99); Potassium 5.1 mmol/L (3.3-5.1); Protein, Total 5.9 g/dL (5.9-8.4); Sodium Level 139 mmol/L (133-145); Total Bilirubin 0.19 mg/dL (0.00-1.30)
[2024-07-24 14:10] LABS: Bacteria 0 SEEN /hpf (None Seen); Mucous, Urine 0 SEEN /hpf (<or=2+)
[2024-07-24 14:27] LABS: Color, Urine Yellow (Yellow); Glucose, Dipstick Normal (Normal); Ketone-Dipstick 5 mg/dl (Negative); Leukocyte Esterase-Dipstick 100 /ul (Negative); Nitrite-Dipstick Negative (Negative); Occult Blood-Urine 10 /ul (Negative); Protein-Dipstick 30 mg/dl (Negative); Urine Bilirubin Dipstick 1 mg/dL (Negative); Urine Clarity Sl. Cloudy (Clear); Urine Urobilinogen Normal (Normal)
[2024-07-24 14:33] LABS: Red Blood Cells-Urine 0 SEEN /hpf (0-5)
[2024-07-24 14:34] LABS: Squamous Epithelial Cells - UA 0-5 SEEN /hpf (5-10)
[2024-07-24 14:35] LABS: Calcium Oxalate Crystals Ur 1+ /hpf (<or=2+)
[2024-07-24 14:36] LABS: White Blood Cells 5-10 SEEN /hpf (0-5)
== END 2024-07-24 16:13 | disposition home or self-care (01) ==
PROVIDERS: Emergency Provider Emergency Medicine; PCP Internal Medicine; Visit Provider Emergency Medicine
DX: N39.0 Urinary tract infection, site not specified (principal); N17.9 Acute kidney failure, unspecified; E86.0 Dehydration; I25.10 Atherosclerotic heart disease of native coronary artery without angina pectoris; R06.02 Shortness of breath; E78.5 Hyperlipidemia, unspecified; I10 Essential (primary) hypertension; Z87.891 Personal history of nicotine dependence; Z79.899 Other long term (current) drug therapy; Z79.84 Long term (current) use of oral hypoglycemic drugs
CPT/HCPCS: 71045; 80053; 81001; 83605; 85025; 85610; 85730; 87040; 87077; 87086; 87088; 87186; 87631; 93005; 96360; 96361; 99285; A4216

== ENCOUNTER → 2024-09-28 | Outpatient (CLI) | payer MEDICARE, MEDICAID, SELFPAY ==
[2021-03-31 10:10] VITALS: BMI 34.4
--- NOTE | 2024-09-28 09:37 | MRI_ITS ---
PROCEDURE: SPINE CERVICAL (ROUTINE) 09/28/2024 REASON FOR EXAM: PAIN TECHNIQUE: Multiplanar and multisequence images were obtained without IV contrast administration. COMPARISON: CT scan on 07/13/2024. FINDINGS: Moderate diffuse spondylosis. Moderate multilevel degenerative disc disease. Multilevel disc dehydration, osteophyte formation and degenerative endplate changes. Multilevel facet joint arthropathy and degenerative uncovertebral joint disease. There is normal signal intensity from the visualized bone marrow without evidence of replacement or acute fracture. The visualized portions of the spinal cord are unremarkable. The visualized portions of the posterior fossa are unremarkable. There is mildly exaggerated cervical lordosis. Evaluation of the individual levels revealed the following: C2-C3: Grade 1 anterolisthesis measuring 3.2 mm. Mild diffuse disc bulge. The spinal canal is not narrowed. Mild bilateral neural foraminal narrowing. C3-C4: Moderate diffuse disc bulge. Bilateral ligamentous hypertrophy. The spinal canal is moderately narrowed. Moderate to severe bilateral neural foraminal narrowing. C4-C5: Grade 1 anterolisthesis measuring 4.2 mm. Mild diffuse disc bulge. The spinal canal is mildly narrowed. Moderate right and mild left neural foramina narrowing. C5-C6: Intervertebral disc fusion with unremarkable metallic hardware. Mild posterior osteophyte formation. No significant spinal canal or neural foraminal stenosis. C6-C7: Moderate diffuse disc bulge. The spinal canal is mildly narrowed. Mild right and moderate left neural foraminal narrowing. MRI/Spine Cervical (Routine) IMPRESSION: Spondylosis. Degenerative disc disease. [facility]
== END | disposition home or self-care (01) ==
LOC: MRI 09:33
PROVIDERS: PCP Internal Medicine; Referring Provider Student in an Organized Health Care Education/Training Program; Visit Provider Student in an Organized Health Care Education/Training Program
DX: G95.9 Disease of spinal cord, unspecified (principal); Z98.1 Arthrodesis status
CPT/HCPCS: 72141

== ENCOUNTER 2024-12-15 15:49 | Observation (INO) | payer MEDICARE, MEDICAID, SELFPAY ==
[2024-10-05 10:48] VITALS: BMI 34.4
--- NOTE | 2024-12-04 12:10 | EKG12_ITS ---
Test Reason : PREOP Blood Pressure : */* mmHG Vent. Rate : 78 BPM Atrial Rate : 78 BPM P-R Int : 152 ms QRS Dur : 76 ms QT Int : 398 ms P-R-T Axes : 40 23 40 degrees QTcB Int : 453 ms Normal sinus rhythm Normal ECG Confirmed by AMADOU MACHUCA ([id number]), associate entertainment editor TORI KAM ([id number]) on 12/07/2024 6:39:24 AM Referred By: Naresh Sanders Confirmed By: AMADOU MACHUCA
[2024-12-04 13:20] LABS: Hematocrit 33.9 % (37-47); Hemoglobin 10.4 g/dL (12.0-15.0); Immature Granulocytes Count 0.020 X10^3/uL (0.0-0.0); Mean Corp Hgb Conc 30.7 g/dL (32-36); Mean Corpuscular Volume 102.1 fL (81-99); Mean Platelet Vol. 8.7 fl (6.2-12.0); NRBC Flagged by Analyzer 0 % (0-5); Platelet Count 234 K/mm3 (150-450); RBC Distribution Width CV 12.5 % (11.6-14.6); RBC Distribution Width SD 46.5 fl (35.1-43.9); Red Blood Count 3.32 M/mm3 (4.2-5.4); White Blood Count 4.4 K/mm3 (4.4-11.0)
[2024-12-04 14:15] LABS: HIV Nonreactive (Nonreactive); Hepatitis C Antibody Nonreactive (Nonreactive)
[2024-12-04 14:18] LABS: Anion Gap 12 (5-15); BUN 34 mg/dL (4-19); BUN/Creat Ratio 42.0 RATIO (10-20); Calcium,Total 9.5 mg/dL (7.6-11.0); Carbon Dioxide 26.1 mmol/L (21.0-32.0); Chloride 104 mmol/L (98-108); Glucose 102 mg/dL (70-99); Potassium 4.3 mmol/L (3.3-5.1)
[2024-12-04 17:15] LABS: Magnesium 1.9 mg/dL (1.5-2.2)
--- NOTE | 2024-12-07 17:36 | PAT.ANESEVAL ---
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 When Was Last Pacemaker Check QUESTION #4 FULL TEXT: You/Your Family Experience fever (hyperthermia) with Anesthesia Last Oral Intake Last Oral intake: Last Oral Intake NPO since Meds taken in AM with sips of water? Meds patient instructed to take am of surgery PONV PONV - wireless operator: PONV - wireless operator Female Yes 12/01/24 08:24 HX of Motion Sickness No 12/01/24 08:24 HX of N/V After Surgery Yes 12/01/24 08:24 Non-Smoker Yes 12/01/24 08:24 Duration of Surgery greater Yes 12/01/24 08:24 than 60 minutes Number of Risk Factors 4 12/01/24 08:24 PONV Score Severe Risk 12/01/24 08:24 Height & Weight Height & Weight: Anesthesia: Height & Weight Height 5 ft 2 in 10/05/24 10:48 Respiratory Assessment Respiratory Assessment - wireless operator: Respiratory Tract Infection Hx - wireless operator Hx Respiratory Tract Infection No 12/01/24 08:24 STOP Sleep Apnea STOP Sleep Apnea - wireless operator: STOP Sleep Apnea - wireless operator Hx Hypertension Yes 12/01/24 08:24 Hx Sleep Apnea No 12/01/24 08:24 CPAP BIPAP Do you snore loudly (louder Yes 12/01/24 08:24 than talking or can be heard Do you often feel tired/ No 12/01/24 08:24 fatigued/ sleepy during daytime? Has anyone observed you stop No 12/01/24 08:24 breathing during sleep? STOP Results Positive 12/01/24 08:24 QUESTION #5 FULL TEXT : Do you snore loudly (louder than talking or can be heard through closed doors)? 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 Specify any problems Hx of Preganancy in last 3 No 12/01/24 08:24 Months Nurse Filling Out Transfusion [email or web address] 12/01/24 08:24 & Questions: Date: 12/01/24 12/01/24 08:24 Time: 08:33 12/01/24 08:24 Patient unable to answer at this time (ie. confused, unrespo /Reproduction History /Reproductive History - wireless operator: /Reproductive Hx- wireless operator Hx Now Gestational Age (in weeks): EDC: Hx Hx Para Hx Section SAB PFSH Medical History (Updated 12/01/24 @ 08:42 by Roosevelt Alarcon) Neuropathy Swelling of lower extremity Shortness of breath on exertion Lupus Diabetes Depression Anxiety Wears glasses Wears dentures Cardiology follow-up encounter Current use of anticoagulant therapy Paroxysmal atrial fibrillation History of left heart catheterization (LHC) (~11/22/21) Atherosclerotic heart disease of [place] coronary artery without angina pectoris Abnormal stress test History of ST elevation myocardial infarction (STEMI) Decreased left ventricular function Essential hypertension Hyperlipidemia Former smoker Acute coronary syndrome Injury of fifth cervical spinal cord Spinal cord stimulator status Chronic pain Arthritis Depression GERD (gastroesophageal reflux disease) Insomnia Neuropathic pain Rheumatoid arthritis Osteoarthritis Morbid obesity Debility Home Medications ?Medication ?Instructions ?Recorded ?Last Taken ?Type cholecalciferol (vitamin D3) 50 2,000 unit PO DAILY vitamin 12/14/20 07/24/24 History mcg (2,000 unit) tablet (Vitamin D3) oxycodone-acetaminophen 7.5 mg-325 1 tab PO BID PRN Pain 12/16/20 Unknown History mg tablet metaxalone 800 mg tablet 400 - 800 mg PO TID PRN muscle 07/17/23 07/09/24 History spasm apixaban 5 mg tablet (Eliquis) 5 mg PO BID afib #60 tabs 01/21/24 07/24/24 Rx hydroxychloroquine 200 mg tablet 200 mg PO BID itching 04/06/24 07/24/24 History metformin 500 mg tablet,extended 500 mg PO DAILY diabetes 04/06/24 07/24/24 History release 24 hr paroxetine HCl 30 mg tablet 30 mg PO DAILY depression 04/06/24 07/24/24 History esomeprazole magnesium 40 mg 40 mg PO BID reflux 07/09/24 07/24/24 History capsule,delayed release famotidine 20 mg tablet 20 mg PO QHS PRN gerd 07/09/24 07/23/24 History methotrexate sodium 25 mg/mL 15 mg subcut WE RA 07/09/24 07/22/24 History injection solution naloxone 4 mg/actuation nasal spray 1 spray intranasal Q3M PRN overdose 07/10/24 Unknown History pyridoxine (vitamin B6) 100 mg 100 mg PO DAILY supplement 07/10/24 Unknown History tablet gabapentin 800 mg tablet 800 mg PO DAILY pain 07/24/24 07/23/24 History lisinopril 5 mg tablet 5 mg PO DAILY HTN #90 TABLETS 07/24/24 Unknown Rx tizanidine 2 mg tablet 2 mg PO Q6H PRN SPASMS 07/24/24 Unknown History potassium chloride 10 mEq 10 meq PO DAILY pr dr #90 caps 08/26/24 Unknown Rx capsule,extended release hair, skin, and nails 1 dose PO DAILY SUPPLEMENT 09/02/24 Unknown History lactobacillus combination no.9 4 4,000 mmu cells PO QDAY SUPPLEMENT 09/02/24 Unknown History billion cell capsule (Adult 50 Plus Probiotic) mecobalamin (vitamin B12) 1,000 1,000 mcg PO QDAY SUPPLEMENT 09/02/24 Unknown History mcg chewable tablet ondansetron 4 mg disintegrating 4 mg PO Q6 PRN nausea/vomiting 09/02/24 Unknown History tablet carvedilol 12.5 mg tablet 12.5 mg PO BID FOR HEART #180 tabs 09/17/24 Unknown Rx clobetasol 0.05 % topical ointment 1 applic topical .COMPLEX PRN 11/27/24 Unknown History itching hydroxyzine pamoate 25 mg capsule 25 - 50 mg PO TID PRN itching 11/27/24 Unknown History oxybutynin chloride 10 mg 10 mg PO QDAY pr dr 11/27/24 Unknown History tablet,extended release 24 hr pregabalin 150 mg capsule 150 mg PO BID pain 11/27/24 Unknown History atorvastatin 40 mg tablet 40 mg PO QHS cholesterol #90 tabs 12/02/24 Unknown Rx Allergy/AdvReac Type Severity Reaction Status Date / Time adhesive Allergy blisters Verified 12/01/24 08:16 pollen extracts Allergy ITCHY EYES Verified 12/01/24 09:04 codeine AdvReac Nausea Verified 12/01/24 08:16 Family History Father CAD (coronary artery disease) Other Heart disease Surgical History (Updated 12/01/24 @ 08:42 by Roosevelt Alarcon) H/O bilateral breast reduction surgery (~2009) H/O unilateral salpingectomy History of appendectomy Previous back surgery Social History household members: spouse housing: apartment Smoking Status: Former smoker Audit: Pertinent Findings Pertinent Findings EKG Perinent findings: 12/04/2024. Normal sinus rhythm. Stress test pertinent findings: October 26, 2021. Status post stress there is a small area of diminished perfusion in the very distal anterior lateral/lateral apical segments. (See cath below) Echo (EF%) pertinent findings: July 10, 2024. EF of 70%. Mild aortic stenosis. Heart catheterization pertinent findings: November 22, 2021. EF of 55%. [place] multivessel CAD (nonobstructive). Medical therapy only. Consult pertinent findings: 09/02/2024. Dr. Vinson. 1. Paroxysmal atrial fibrillation-last episode 2022. Multiple EKGs show sinus rhythm and no evidence of atrial fibrillation. Patient remains on Eliquis 5 mg and Coreg. 2. Long-term anticoagulant use-patient on Eliquis for paroxysmal A-fib. Okay to interrupt medication for future intervention. 3. Atherosclerotic heart disease of [place] coronary artery without angina pectoris-patient had nonobstructive CAD on cath October 2021. 4. Patient does have a remote history of Takotsubo syndrome November 2020. Recommendation Anesthesia Recommendation Anesthesia recommendation: OPTIMIZED for anesthesia
[2024-12-15] VITALS (18 sets, daily range): BP systolic 114–171; BP diastolic 55–90; PULSE 74–99; RESP 14–76; TEMP 36.2–36.7; O2SAT 4–100; BMI 36.1
[2024-12-15] MEDS: Magnesium 2 GM for ERAS IV (10:43)
--- NOTE | 2024-12-15 12:10 | PCM.PRE.AN2 ---
ASA Classification* ASA Classification ASA Classification: 3 Assessment & Plan Anesthesia* Anesthesia Assessment Anesthesia Assessment: Discussed sedation and/or anesthesia options, risks, benefits, and alternatives with patient/parents/legal guardian/POA. Questions invited. The patient/parents/legal guardian/POA seems to understand and agrees to proceed with anesthesia plan. Reviewed the physical assessment, medical history, allergy history and patient home medications list prior to surgery/procedure/anesthetic and documented any changes. Performed airway and anesthesia risk assessments. Anesthesia Type Anesthesia Type: General History Source History Obtained from:: Patient and Chart Anesthesia Focused Assessment* Temperature: 98 F Pulse Rate: 74 Blood Pressure: 154/90 Respiratory Rate: 16 Pulse Ox: 100 Oxygen Delivery Method: Room Air Airway Assessment Mouth opens: >3 cm Mallampati Score: III Teeth Condition: Partial, Upper and Implants Neck Range of motion (ROM): Full ROM Labs Anesthesia Preop lab: CBC WBC 4.4 K/mm3 (4.4-11.0) 12/04/24 12:42 12/04/24 RBC 3.32 M/mm3 (4.2-5.4) L 12/04/24 12:42 12/04/24 Hgb 10.4 g/dL (12.0-15.0) L 12/04/24 12:42 12/04/24 Hct 33.9 % (37-47) L 12/04/24 12:42 12/04/24 Plt Count 234 K/mm3 (150-450) 12/04/24 12:42 12/04/24 CHEMISTRY Potassium 4.3 mmol/L (3.3-5.1) 12/04/24 12:42 12/04/24 Sodium 142 mmol/L (133-145) 12/04/24 12:42 12/04/24 Magnesium 1.9 mg/dL (1.5-2.2) 12/04/24 12:12/04/24 Phosphorus 3.0 mg/dL (2.7-4.5) 07/15/24 09:04 07/15/24 BUN 34 mg/dL (4-19) H 12/04/24 12:42 12/04/24 Creatinine 0.80 mg/dL (0.70-1.20) 12/04/24 12:42 12/04/24 Glucose 102 mg/dL (70-99) H 12/04/24 12:42 12/04/24 POC Glucose 97 mg/dL (74-106) 05/29/24 11:29 05/29/24 TSH 0.860 uIU/mL (0.300-4.200) 07/10/24 07:18 07/10/24 COAG PT 17.1 SECONDS (11.7-14.9) H 07/24/24 12:59 07/24/24 Pre-Assessment Diagnosis/Proposed Procedure Planned Operative Procedure(s): ANTERIOR CERVICAL FUSION C3-4, C4-5 REMOVAL OF HARDWARE Anesthesia History Anesthesia History - emergency management program specialist: Anesthesia History - emergency management program specialist Hx Hospitalization Yes: 06/2024- [facility]/ 12/01/24 08:24 INFECTION FROM SPINAL CORD STIM/SUMMA Any Problems With Anesthesia Yes: N/V 12/01/24 08:24 Cholinesterase deficiency No 12/01/24 08:24 You/Your Family Experience No 12/01/24 08:24 fever (hyperthermia) with Relationship Recent Exposure to Contagious No 12/15/24 10:26 Disease Does patient have nerve Yes 12/01/24 08:24 stimulator Patient instructed to have device shut off --Does patient have Pacemaker No 12/15/24 10:26 or ICD? When Was Last Pacemaker Check QUESTION #4 FULL TEXT: You/Your Family Experience fever (hyperthermia) with Anesthesia Last Oral Intake Last Oral intake: Last Oral Intake NPO since 08:00 12/15/24 10:26 Meds taken in AM with sips of Yes 12/15/24 10:26 water? Meds patient instructed to 0730 12/15/24 10:26 take am of surgery PREVACID NORVASC COREG PONV PONV - emergency management program specialist: PONV - emergency management program specialist Female Yes 12/01/24 08:24 HX of Motion Sickness No 12/01/24 08:24 HX of N/V After Surgery Yes 12/01/24 08:24 Non-Smoker Yes 12/01/24 08:24 Duration of Surgery greater Yes 12/01/24 08:24 than 60 minutes Number of Risk Factors 4 12/01/24 08:24 PONV Score Severe Risk 12/01/24 08:24 Height & Weight Height & Weight: Anesthesia: Height & Weight Height 5 ft 12/15/24 10:26 Weight: 84 kg 12/15/24 10:26 Body Mass Index (BMI) 36.1 12/15/24 10:26 Respiratory Assessment Respiratory Assessment - emergency management program specialist: Respiratory Tract Infection Hx - emergency management program specialist Hx Respiratory Tract Infection No 12/01/24 08:24 STOP Sleep Apnea STOP Sleep Apnea - emergency management program specialist: STOP Sleep Apnea - emergency management program specialist Hx Hypertension Yes 12/01/24 08:24 Hx Sleep Apnea No 12/01/24 08:24 CPAP BIPAP Do you snore loudly (louder Yes 12/01/24 08:24 than talking or can be heard Do you often feel tired/ No 12/01/24 08:24 fatigued/ sleepy during daytime? Has anyone observed you stop No 12/01/24 08:24 breathing during sleep? STOP Results Positive 12/01/24 08:24 QUESTION #5 FULL TEXT : Do you snore loudly (louder than talking or can be heard through closed doors)? 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 Specify any problems Hx of Preganancy in last 3 No 12/01/24 08:24 Months Nurse Filling Out Transfusion [email or web address] 12/01/24 08:24 & Questions: Date: 12/01/24 12/01/24 08:24 Time: 08:33 12/01/24 08:24 Patient unable to answer at this time (ie. confused, unrespo /Reproduction History /Reproductive History - emergency management program specialist: /Reproductive Hx- emergency management program specialist Hx Now Gestational Age (in weeks): EDC: Hx Hx Para Hx Section SAB Active Medications Active Medications: Current Medications Generic Name Dose Route Start Last Admin Trade Name Freq PRN Reason Stop Dose Admin Cefazolin Sodium 2 gm/ Sodium 110 mls @ 150 mls/hr 12/15/24 12:00 Chloride IV 12/15/24 12:43 INTRAOP ONE Tranexamic Acid 1,000 mg/ 110 mls @ 440 mls/hr 12/15/24 12:00 Sodium Chloride IV 12/15/24 12:14 INTRAOP ONE Tranexamic Acid 1,000 mg/ 110 mls @ 440 mls/hr 12/15/24 12:00 Sodium Chloride IV 12/15/24 12:14 INTRAOP ONE Magnesium Sulfate 2 gm/ 104 mls @ 208 mls/hr 12/15/24 12:00 12/15/24 10:43 Dextrose IV 12/15/24 12:29 208 mls/hr PREOP ONE Administration Lactated Ringer's 1,000 mls @ 15 mls/hr 12/15/24 10:15 IV .Q48H BRIANA Insulin Human Lispro 1 - 6 unit 12/15/24 12:00 Insulin Lispro 100 Unit/Ml Insuln.Pen SC 12/15/24 20:00 Q4H PRN PRN BG>/= 180, SEE PROTOCOL Protocol PFSH Medical History (Updated 12/01/24 @ 08:42 by Roosevelt Alarcon) Neuropathy Swelling of lower extremity Shortness of breath on exertion Lupus Diabetes Depression Anxiety Wears glasses Wears dentures Cardiology follow-up encounter Current use of anticoagulant therapy Paroxysmal atrial fibrillation History of left heart catheterization (LHC) (~11/22/21) Atherosclerotic heart disease of [place] coronary artery without angina pectoris Abnormal stress test History of ST elevation myocardial infarction (STEMI) Decreased left ventricular function Essential hypertension Hyperlipidemia Former smoker Acute coronary syndrome Injury of fifth cervical spinal cord Spinal cord stimulator status Chronic pain Arthritis Depression GERD (gastroesophageal reflux disease) Insomnia Neuropathic pain Rheumatoid arthritis Osteoarthritis Morbid obesity Debility Home Medications ?Medication ?Instructions ?Recorded ?Last Taken ?Type cholecalciferol (vitamin D3) 50 2,000 unit PO DAILY vitamin 12/14/20 12/14/24 History mcg (2,000 unit) tablet (Vitamin D3) oxycodone-acetaminophen 7.5 mg-325 1 tab PO BID PRN Pain 12/16/20 Unknown History mg tablet metaxalone 800 mg tablet 400 - 800 mg PO TID PRN muscle 07/17/23 12/14/24 History spasm apixaban 5 mg tablet (Eliquis) 5 mg PO BID afib #60 tabs 01/21/24 12/06/24 Rx hydroxychloroquine 200 mg tablet 200 mg PO BID itching 04/06/24 12/14/24 History metformin 500 mg tablet,extended 500 mg PO DAILY diabetes 04/06/24 12/14/24 History release 24 hr paroxetine HCl 30 mg tablet 30 mg PO DAILY depression 04/06/24 07/24/24 History esomeprazole magnesium 40 mg 40 mg PO BID reflux 07/09/24 12/15/24 History capsule,delayed release famotidine 20 mg tablet 20 mg PO QHS PRN gerd 07/09/24 12/14/24 History methotrexate sodium 25 mg/mL 15 mg subcut WE RA 07/09/24 12/13/24 History injection solution naloxone 4 mg/actuation nasal spray 1 spray intranasal Q3M PRN overdose 07/10/24 Unknown History pyridoxine (vitamin B6) 100 mg 100 mg PO DAILY supplement 07/10/24 Unknown History tablet gabapentin 800 mg tablet 800 mg PO DAILY pain 07/24/24 12/14/24 History lisinopril 5 mg tablet 5 mg PO DAILY HTN #90 TABLETS 07/24/24 12/15/24 Rx tizanidine 2 mg tablet 2 mg PO Q6H PRN SPASMS 07/24/24 Unknown History potassium chloride 10 mEq 10 meq PO DAILY pr dr #90 caps 08/26/24 Unknown Rx capsule,extended release hair, skin, and nails 1 dose PO DAILY SUPPLEMENT 09/02/24 12/14/24 History lactobacillus combination no.9 4 4,000 mmu cells PO QDAY SUPPLEMENT 09/02/24 12/14/24 History billion cell capsule (Adult 50 Plus Probiotic) mecobalamin (vitamin B12) 1,000 1,000 mcg PO QDAY SUPPLEMENT 09/02/24 12/14/24 History mcg chewable tablet ondansetron 4 mg disintegrating 4 mg PO Q6 PRN nausea/vomiting 09/02/24 Unknown History tablet carvedilol 12.5 mg tablet 12.5 mg PO BID FOR HEART #180 tabs 09/17/24 12/15/24 Rx clobetasol 0.05 % topical ointment 1 applic topical .COMPLEX PRN 11/27/24 12/14/24 History itching hydroxyzine pamoate 25 mg capsule 25 - 50 mg PO TID PRN itching 11/27/24 12/14/24 History oxybutynin chloride 10 mg 10 mg PO QDAY pr dr 11/27/24 Unknown History tablet,extended release 24 hr pregabalin 150 mg capsule 150 mg PO BID pain 11/27/24 Unknown History atorvastatin 40 mg tablet 40 mg PO QHS cholesterol #90 tabs 12/02/24 12/14/24 Rx Allergy/AdvReac Type Severity Reaction Status Date / Time adhesive Allergy blisters Verified 12/01/24 08:16 pollen extracts Allergy ITCHY EYES Verified 12/01/24 09:04 codeine AdvReac Nausea Verified 12/01/24 08:16 Family History Father CAD (coronary artery disease) Other Heart disease Surgical History (Updated 12/01/24 @ 08:42 by Roosevelt Alarcon) H/O bilateral breast reduction surgery (~2009) H/O unilateral salpingectomy History of appendectomy Previous back surgery Social History household members: spouse housing: apartment Smoking Status: Former smoker Review of Systems (Anesthesia) ROS Narrative System reviewed and no additional complaints, except as documented. Physical Exam Const Nutritional Appearance: obese Resp normal respiratory effort and normal air movement Cardio regular rate and regular rhythm
--- NOTE | 2024-12-15 12:23 | PCM.HP.BLA ---
History and Physical Date of Admission: 12/15/24 MR#: [id number] Acct: [id number] Name: PARADISE FAUST Rep #: [id number] : 1960 Provider: Dr. Naresh Sanders MD Age/Sex: 64/F Location: [facility] [place] Status: Signed Intake Vital Signs 10/05/2509:48 11/27/2512:03 Height 5 ft 2 in 5 ft 2 in Weight: 184 lb 6 oz BMI 33.7 Intake Visit Reasons: cervical spine Chief Complaint: Cervical Spine Pre-Op Accompanied by: Self Is patient in pain?: Yes Pain scale (1-10): 7 Allergies Environmental Allergies: Uncoded (seasonal) Allergy (Severe, Verified 11/27/24 13:04) Sneezingadhesive Allergy (Verified 11/27/24 13:04) blisterscodeine Adverse Reaction (Verified 11/27/24 13:04) Nausea Medications ?Medication ?Instructions ?Recorded ?Confirmed ?Type cholecalciferol (vitamin D3) 50 2,000 unit PO DAILY vitamin 12/14/20 11/27/24 History mcg (2,000 unit) tablet (Vitamin D3) oxycodone-acetaminophen 7.5 mg-325 1 tab PO BID PRN Pain 12/16/20 11/27/24 History mg tablet metaxalone 800 mg tablet 400 - 800 mg PO TID PRN muscle 07/17/23 11/27/24 History spasm apixaban 5 mg tablet (Eliquis) 5 mg PO BID afib #60 tabs 01/21/24 11/27/24 Rx hydroxychloroquine 200 mg tablet 200 mg PO BID itching 04/06/24 11/27/24 History metformin 500 mg tablet,extended 500 mg PO DAILY diabetes 04/06/24 11/27/24 History release 24 hr paroxetine HCl 30 mg tablet 30 mg PO DAILY depression 04/06/24 11/27/24 History esomeprazole magnesium 40 mg 40 mg PO BID reflux 07/09/24 11/27/24 History capsule,delayed release famotidine 20 mg tablet 20 mg PO QHS PRN gerd 07/09/24 11/27/24 History methotrexate sodium 25 mg/mL 15 mg subcut WE 07/09/24 11/27/24 History injection solution naloxone 4 mg/actuation nasal spray 1 spray intranasal Q3M PRN overdose 07/10/24 11/27/24 History pyridoxine (vitamin B6) 100 mg 100 mg PO DAILY supplement 07/10/24 11/27/24 History tablet gabapentin 800 mg tablet 800 mg PO 1200 07/24/24 11/27/24 History lisinopril 5 mg tablet 5 mg PO DAILY #90 TABLETS 07/24/24 11/27/24 Rx tizanidine 2 mg tablet 2 mg PO Q6H PRN SPASMS 07/24/24 11/27/24 History potassium chloride 10 mEq 10 meq PO DAILY #90 caps 08/26/24 11/27/24 Rx capsule,extended release hair, skin, and nails PO DAILY 09/02/24 11/27/24 History lactobacillus combination no.9 4 4,000 mmu cells PO QDAY 09/02/24 11/27/24 History billion cell capsule (Adult 50 Plus Probiotic) mecobalamin (vitamin B12) 1,000 1,000 mcg PO QDAY 09/02/24 11/27/24 History mcg chewable tablet ondansetron 4 mg disintegrating 4 mg PO Q6 PRN nausea/vomiting 09/02/24 11/27/24 History tablet carvedilol 12.5 mg tablet 12.5 mg PO BID FOR HEART #180 tabs 09/17/24 11/27/24 Rx atorvastatin 40 mg tablet 40 mg PO QHS cholesterol #90 tabs 09/22/24 11/27/24 Rx clobetasol 0.05 % topical ointment 1 applic topical .COMPLEX PRN 11/27/24 11/27/24 History itching hydroxyzine pamoate 25 mg capsule 25 - 50 mg PO TID PRN 11/27/24 11/27/24 History oxybutynin chloride 10 mg 10 mg PO QDAY 11/27/24 11/27/24 History tablet,extended release 24 hr pregabalin 150 mg capsule 150 mg PO BID 11/27/24 11/27/24 History PFSH Medical History Paroxysmal atrial fibrillation Atherosclerotic heart disease of [place] coronary artery without angina pectoris Current use of anticoagulant therapy History of ST elevation myocardial infarction (STEMI) Osteoarthritis History of left heart catheterization (LHC) (~11/22/21) Abnormal stress test Decreased left ventricular function Essential hypertension Hyperlipidemia Former smoker Acute coronary syndrome Injury of fifth cervical spinal cord Spinal cord stimulator status Chronic pain Arthritis Depression GERD (gastroesophageal reflux disease) Insomnia Neuropathic pain Rheumatoid arthritis Morbid obesity Debility Surgical History History of appendectomy Previous back surgery Family History Father CAD (coronary artery disease)Other Heart disease Social History household members: spouse housing: apartment Smoking Status: Former smoker HPI cervical spine Details: This documentation accurately reflects the service provided and the decisions made by me, Dr. Naresh Sanders MD 11/27/24 4660. Part of today?s visit was documented by Ela Rose ATC, acting as scribe. PARADISE FAUST is a 64 year old F here today for cervical spine pre-op for anterior cervical disc fusion C3-4 and C4-5, removal of hardware DOS 12/15/2024. Patient rates her pain a 7/10 today. She denies any recent injections. She states the pain is about the same as it was at her last visit. She states there are some days when she gets up and she takes a few steps and then she can't move very well and it is very painful. The patient is a 64-year-old female presenting with concerns related to her upcoming cervical spine surgery. She has a history of cervical fusion at C5-6 performed in 2001 and is now experiencing issues with the C3-4 and C4-5 discs, which are slipping and have lost height, causing spinal cord compression. The patient reports a history of infection following a spinal stimulator replacement, which required removal of the device and treatment with antibiotics until May 10. She also experienced a C. difficile infection during this period, leading to multiple hospitalizations until June. The patient has a history of anesthesia-related nausea, which has been managed with different medications in past surgeries. She has ceased smoking since 2015 and is currently on metformin for pre-diabetes, with a recent A1c of 5.8%. - Musculoskeletal: Reports inability to turn neck to one side for a couple of years. - Neurological: Denies current symptoms of infection or neurological deficits. - Gastrointestinal: Reports history of C. difficile infection. - Endocrine: Reports pre-diabetes with A1c of 5.8%. Attestation: Documentation on this patient encounter was supported using ambient scribe technology/ voice AI technology. The patient consented to recording for the purpose of documenting the encounter. Provider reviewed content of the generated note prior to signature. 10/06/24: PARADISE FAUST is a 64 year old F here today for cervical spine MRI review. Patient rates her pain a 7/10 today but she is doing more than normal today. She states she took an extra pain medication today but to increase in walking. Patient states the neck pain has gotten a little worse since her last visit. She denies any recent injections and states they do not give her any relief anyway. She is scheduled to see pain management next month. Her fusion in [id number] Aydee borja at C5-6 with a left sided incision. To recall she was hospitalized for several weeks back in March following an infection from a spinal cord stimulator placement which was then removed because of the infection. She had a PICC line which was removed at the beginning of April. No fci course of oral antibiotics. Sees Dr. Vinson with cardiology and takes Eliquis. 09/10/2024: PARADISE FAUST is a 63 year old F here today for cervical spine pain. Patient is having pain in the back of the neck. The pain is like a dull, and achy pain. She has pain in the morning when she moves her head left to right. When she gets up and gets moving her pain does slightly improve. This has been going on for years. The pain just came on, one day she couldn't turn her head. She was seeing Dr. Bajwa since 2001. Dr. Bajwa did a C5 and C6 fusion. That surgery was in 2001 or 2002. At that time she was having very painful neck pain, denies any radicular symptoms at that time. She did very well after that surgery. Had that in 2008 her pain started again. The patient had a spinal cord stimulator placed in 2008 but then in February 2024 she had to have it removed due to infection. Currently the patient says that turning her head from left to right makes the pain worse. The pain hurts worse when she lays on her right side at night. Says that she also notices some mild numbness in her right hand over the posterior aspect periodically. Patient is doing home physial therapy he has been doing this for the last 2 months with 2 sessions per week for the first 4 weeks and is currently down to 1 time per week. She states that some one comes and helps her walk, and makes sure she doesn't fall. Says that she has been having some new balance issues and uses a cane when she leaves the house due to this issue and has been using the cane since June. Prior to June he did not have to use the cane. Denies any dexterity issues. The physical therapy is for her neck as well as the balance. Says that this has slightly improved her balance. She got injections from pain management. Dr. Polanco did injections, she was seeing him since [id number]. The injections that he did didn't not help. Patient does take blood thinners. She takes Eliquis 2 times a day following a heart attack. She is a pre diabetic. Patient quit smoking in 2015, but denies any drug use. Also has a history of a anterior posterior lumbar fusion in the past with [facility] in 2010 or 2011. Patient currently sees pain management in [place] who gives her oxycodone?acetaminophen, tizanidine, Lyrica. Patient used to take gabapentin however that medication recently got switched to the Lyrica. Ortho Exam General General: Yes no acute distress Neurologic: Yes alert and Yes oriented x3 Psychologic: Yes reasonable and appropriate Spine SPINE TESTING CERVICAL THORACIC LUMBAR Musculoskeletal Strength 0=absent - 5=normal Details: Neurological exam of the upper extremities shows 5x5 power, increased pain in the neck with bilateral tricep extension. Normal sensations across all dermatomes. No hyperreflexia. Ulcia's negative. No midline or paraspinal tenderness. Romberg's positive, single leg stand shows relatively normal balance. Physical examination of the neck shows a well-healed left-sided incision. Coding Level of Care Code Off vis,est,level 4 Diagnoses Cervical myelopathy G95.9 History of fusion of cervical spine Z98.1 Time Spent (min) 35 Assessment and Plan Assessment and Plan (1) Cervical myelopathy: Status: Acute (2) History of fusion of cervical spine: Status: Acute Plan Again reviewed prior x-rays show a prior fusion at C5-6 which is well-healed. There is disc height loss seen throughout the cervical spine worse at C3-4, no significant instability, no MRI. Reviewed cervical MRI from September 28, 2024 which showed C3-4 moderate diffuse disc bulge with moderate spinal stenosis and moderate to severe bilateral neuroforaminal stenosis, C5-6 anterolisthesis with a mild diffuse disc bulge resulting in a mild spinal stenosis and moderate right and mild left neuroforaminal stenosis. 1. Cervical disc herniation at C3-4 and C4-5 - Surgical intervention planned to address disc slippage and spinal cord compression. - Pre-operative instructions include cessation of Eliquis as per Dr. Vinson' guidance. - Post-operative care will involve wearing a cervical collar and engaging in physical therapy. 2. History of infection post spinal stimulator replacement - No current infection, but previous infection required removal of the stimulator and antibiotic treatment. - Monitoring for any signs of infection post-surgery is advised. 3. History of C. difficile infection - Patient should be monitored for gastrointestinal symptoms post-operatively, especially if antibiotics are required. 4. Anesthesia-related nausea - Anesthesia team to be informed of past nausea to adjust medications accordingly. 5. Pre-diabetes - Continue monitoring blood glucose levels and maintain current management with metformin. - Stop taking Eliquis as instructed by Dr. Vinson before surgery. - Wear the cervical collar as directed after surgery. - Engage in physical therapy post-surgery to improve neck mobility. - Monitor for any signs of infection and report them immediately. - Inform the anesthesia team about past nausea experiences. - Maintain a healthy diet and monitor blood glucose levels. Explained the imaging findings in detail. Reviewed cervical MRI with Dr. Sanders. Discussed options today with the patient which includes C3-5 ACDF with possible hardware removal. Explained the surgery in detail and explained risks and benefits. At this time the patient feels like this pain has been affecting her quality of life and has made it difficult for her to do what she wishes to do and because of this she wishes to proceed with surgery. Explained the progressive nature of cervical myelopathy. The patient does continue to have balance issues, strength testing today in the office continues to be normal and equal bilaterally. No hyperreflexia. The patient does see cardiology and takes Eliquis, which we will need to have clearance from cardiology and clearance to stop the Eliquis prior to surgery. Discussed this procedure in detail and explained the risks, benefits and alternatives. The risks of surgery include but are not limited to infection, bleeding, injury to nerves and vessels, hematoma formation, dysphagia, dysphonia, recurrent laryngeal nerve injury, Maria Eugenia syndrome, DVT, pulmonary embolism, pneumonia, atelectasis, cardiopulmonary event, pseudoarthrosis, hardware failure, adjacent segment degeneration, need for further surgery, nerve root injury, spinal cord injury. Answered all questions to the patient?s satisfaction. Patient understands and agrees to proceed with surgery. Consent was signed.
[2024-12-15] MEDS: 0.9% Normal Saline (1000mL) 500 ML IV (12:39)
--- NOTE | 2024-12-15 12:45 | RAD_ITS ---
PROCEDURE: CERV SPINE 2 OR 3 VIEWS 12/15/2024 REASON FOR EXAM: C3-C4 AND C4-C5 TECHNIQUE: CERV SPINE 2 OR 3 VIEWS COMPARISON: 09/28/2024. FINDINGS: Intraoperative fluoroscopy was performed. 17.4 seconds. 7.71 mGy. 7 pictures. See procedure report for full details. RAD/Cerv Spine 2 or 3 Views IMPRESSION: As above. Disclaimer: Reading Location: [id number]
[2024-12-15] MEDS: Cefazolin 1 GM/5 ML Vial 2 GM IV (12:50)
[2024-12-15] MEDS: Lidocaine 1% (5 ml sdv) 5 ML Vial 6 ML IV (12:55)
[2024-12-15] MEDS: REMIFENTANIL HCL 1 MG VIAL IV (12:58)
--- NOTE | 2024-12-15 14:26 | CHAPLAIN ---
Type of Pastoral Visit _x__ Initial Visit ___ Follow-up Visit ___ On-call Visit ___ General Patient Visit ___ Spiritual Assessment ___ Family Conference ___ Bereavement ___ Rapid Response ___ Code Blue ___ Other (describe below) Pastoral Care Referral From _x__ Patient ___ Family ___ Nurse ___ Physician ___ Geospatial Information Technologist ___ Silk Spreader ___ Other (describe below) Sacrament/Intervention ___ Active listening ___ Anointing ___ Congregation ___ Bereavement ___ Communion ___ Vidhi exploration ___ ___ Life review ___ Prayer ___ Reconciliation ___ Sacrament of Sick _x__ Supportive presence ___ Wedding ___ Other (describe below) Pastoral Comments patient was in pre op and attended by many staff members in preparation for surgery; SO is also in the room; offer of support and care given; offer of same to SO; pt denies having concerns and is just wanting to get to surgery
[2024-12-15] MEDS: TRANEXAMIC ACID 1,000 MG/10 ML ML 2000 MG IV (15:23)
--- NOTE | 2024-12-15 15:41 | PCM.OPRPT ---
Procedures Musculoskeletal [id number]: Other Procedure See Report Operative Report (Standard) Operative Information Date of Procedure: 12/15/24 Pre-Operative Diagnosis: C3-5 disc degeneration with stenosis, radiculomyelopathy, prior C5-6 fusion Post-Operative Diagnosis: same Surgery/Procedure Performed: C3-4 ACDF with plate instrumentation, C4-5 stand-alone ACDF, attempted removal of previous C5-6 plate petroleum engineer: Yes Marine Consultant: Luda Renteria Tasks completed by digital marketing assistant: Closing, Removing tissue and Hemostasis: Electrocautery Type of Anesthesia: General RN Documented Start/Stop Times: Operation Date: 12/15/24 12:00 Case Time Into Pre-Op 12/15/24 10:06 Out of Pre-Op 12/15/24 12:35 Anesthesia Start 12/15/24 12:38 Into Room 12/15/24 12:38 Procedure Start 12/15/24 13:10 Procedure Start Time: 13:10 Procedure Stop Time: 15:55 Select all DRAINS/GRAFTS/IMPLANTS that apply: Drains Drain details: Yulisa , Graft Graft details: Structural allograft strut at C3-4, DBX at both levels and Implanted device Implanted device details: Medtronic Warrior Run Elite plate instrumentation, stand-alone titanium ACDF cage Estimated Blood Loss: 40 cc Specimen collected: No Description of surgery: Preoperative diagnosis: C3-5 disc degeneration with stenosis, radiculomyelopathy, prior C5-6 fusion Postoperative diagnosis: Same Name of procedure: C3-4 anterior cervical discectomy and fusion with plate instrumentation, C4-5 stand-alone ACDF. - Anterior cervical fusion C3-4, CPT code 45010 - Anterior plate instrumentation C3-4, CPT code 80674/59 - Anterior cervical fusion C4-5, CPT code 94919/51 - Anterior cervical interbody cage stand-alone C4-5, CPT code 84632 - C3-4 structural allograft bone with DBX, CPT code 59496 - Demineralized bone matrix, CPT code 71509 Attending surgeon: Naresh Sanders M.D. Anesthesia: Gen. endotracheal Estimated blood loss: 40 mL Complications: None Instrumentation used: Medtronic Warrior Run Elite plate, LASR corticocancellous allograft structural, stand-alone titanium cage Indications: The patient is a pleasant 64-year-old lady who presented with neck pain, difficulty with dexterity and balance. MRI showed C3-5 disc degeneration with stenosis with cord compression without cord signal changes, prior C5-6 fusion surgical changes. In order to halt the progression of myelopathy, the patient requested surgical treatment. All risks and benefits of the procedure were explained to the patient. The risks include but are not limited to infection, bleeding, injury to nerves and vessels, vertebral artery injury, spinal cord injury, paralysis, vocal cord paralysis, injury to esophagus, pseudoarthrosis, need for further procedures, adjacent segment degeneration. Procedure: The patient was identified in the preoperative suite using unique patient identifiers. Skin was marked consent was taken and all questions were answered. The patient was then brought back to the operative room and a timeout was performed. General endotracheal anesthesia was given. Intraoperative neuro monitoring leads were applied. The patient was carefully positioned supine on a regular OR table. A lateral view with a C-arm was done to identify the level and to define the incision. The anterior neck was then prepped and draped in the usual fashion. A final timeout was then performed. A transverse skin incision was taken to the right of midline. Subcutaneous tissue was then divided with Bovie. Platysma was identified and cut along the incision with scissors. The fascial interval between the sternocleidomastoid and the larynx was developed. Omohyoid was identified and retracted. The esophagus with the larynx was retracted medially to reach the prevertebral fascia. Anterior C5-6 plate from previous surgery was identified and levels were confirmed on C arm. Longus coli muscle was elevated on both sides at and above and below C3-6 discs. Self-retaining retractors were then placed. An attempt was made to remove the C5-6 anterior plate, however the available removal hardware was not able to remove the screws. After multiple attempts, decision was made to leave the previous plate in place. A long handle knife was then used to perform annulotomy at C4-5. Disc fragments were removed with the pituitary. Intradiscal distractors were used for disc distraction. Curettes and bur was utilized to remove cartilage from the endplates. Discectomy was performed laterally up to the uncovertebral joints. Posterior osteophytes were thinned down with the bur and adequate decompression in the central and foraminal areas were performed and PLL was thinned out. Once the disc space was prepared, trials of various sizes were utilized. Thorough irrigation was given. Titanium stand-alone ACDF cage of 7 mm anterior height with lordosis was then packed with DBX and placed into the C4-5 disc space. Awl was utilized to make dolly driver holes for the screws above and below. 14 mm screw superiorly as well as 16 mm inferiorly was then placed obliquely into the C4 and C5 bodies through the cage. Anterior instrumentation of the cage was completed with applying the backout plate on top of the cage. The retractors were then repositioned and the procedure was repeated for C3-4 disc, this time utilizing [place] pin for disc distraction. Severe osteopenia and soft bones were noticed. 6 mm LASR cortical cancellous allograft bone large footprint was then fashioned in such a way that concavities were burred out inferiorly and superiorly and half cc of DBX (demineralized bone matrix) was squeezed into the cancellous portion. The graft was then inserted into the C3-4 disc space. graft and cage were found to be in good apposition with good pullout strength. A 23 mm Medtronic Warrior Run Elite plate was then fixed to C3-4 with 15 mm screws. A lateral x-ray was then taken to check the length of the screws. Both AP and lateral x-rays showed good positioning of plate and screws. The locking mechanism over the screw heads was then turned. Thorough irrigation was again given. Hemostasis was achieved. A [place] drain was then inserted. Closure was done with 3-0 Vicryl for the platysma and subcutaneous tissue layers and 4-0 Monocryl for the skin. Closure was done around the drain. Steri-Strips were applied and dressing was done with 4 x 4 gauze and Tegaderm. A cervical collar was then applied. The patient was then woken up from anesthesia extubated and taken to PACU in stable condition. From here, the patient will be transitioned to the floor. Intraoperative neuro monitoring was performed throughout this procedure. Motor evoked potentials were run periodically. All potentials remained at baseline throughout the procedure. I was present for the entire surgery and performed the surgery myself. Fireworks Maker Luda Renteria PA-C. My physician environmental engineering assistant was a vital part of this case. They were important in appropriate retraction during the case, and protection of soft tissues during the procedure. Their intimate knowledge of the case and my steps aided in safe and expedient completion of the procedure as well as appropriate position of the patient during the surgery. They were also vital in assisting with closure under my direct supervision. Surgical Findings: See operative note Complications Complications: No
--- NOTE | 2024-12-15 16:00 | PCM.POST.ANE ---
Anesthesia: Postop Eval I Current Vital Signs Temperature: 97.5 F Pulse Rate: 77 Blood Pressure: 138/64 Respiratory Rate: 16 Pulse Ox: 94 Oxygen Delivery Method: Airvo Oxygen Flow Rate (L/min): 6 Assessment Airway patent: Yes Spontaneous unlabored respirations: Yes Mental status: Awake and Calm nausea: No Vomiting: No Anesthesia Complication: No Fluid Hydration Crystalloid volume administer (ml): 1,600 Total IV fluid infused: 1,600 Progress Note Anesthesia document: Postop Eval 1 completed: Yes
[2024-12-15] MEDS: Lactated Ringers 1,000 ML 15 ML IV (16:24)
--- NOTE | 2024-12-15 18:03 | PCM.CONS.GEN ---
Assessment & Plan Assessment/Plan (1) Cervical myelopathy: PLAN: Plan Patient is a 64-year-old female who presented to [facility] on 12/15/2024 for planned cervical spine fusion procedure. Medicine consulted postoperatively for medical management. 1. 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 Orthopedic surgery primary. S/p C3-4 and C4-5 cervical fusion procedure with Dr. Sanders on 12/15. Tolerated procedure well, no intraoperative complications noted. Notably Dr. Sanders attempted to remove previous hardware placed during C5-6 fusion but they did not have the instrumentation available for this. Postoperative pain management, DVT prophylaxis and further management per orthopedics. Follow-up a.m. labs. PT/OT/case management consulted. 2. Paroxysmal A-fib, history of CAD with stenting, hypertension, hyperlipidemia ? In normal sinus rhythm and normotensive postoperatively. Holding home Eliquis and will defer to orthopedics on timing of restarting this. Okay to continue home Coreg and lisinopril with hold parameters. Continue home statin. 3. RA ? Continue home hydroxychloroquine. Hold home methotrexate weekly, will resume on discharge. 4. Overactive bladder ? Continue home oxybutynin. 5. Depression ? Continue home Paxil. 6. Type 2 diabetes mellitus ? Most recent A1c 5.6% on 12/04. Patient is only on metformin 500 mg daily for her diabetes. Given patient is on IV steroids postoperatively, will treat with sliding scale insulin with meals while inpatient. 7. Chronic anemia ? Baseline hemoglobin around 10. Follow-up a.m. CBC. 8. GERD ? Continue home PPI. DVT prophylaxis: SCDs until Eliquis is restarted by orthopedics Total clinical time spent by myself addressing the patient's medical issues, reviewing all the data, and collaborating with patient's care team: 35 minutes. HPI Consult Data Date of Consult: 12/15/24 HPI Narrative Reason for Consultation: Postoperative medical management HPI Narrative: PARADISE FAUST, is a 64 F who presented to [facility] on 12/15/2024 for planned orthopedic procedure. Medicine consulted postoperatively for medical management. Patient had C3-4 cervical disc fusion with plate instrumentation, as well as C4-5 disc fusion procedure done with Dr. Sanders this afternoon. Tolerated procedure well, no intraoperative complications noted. I saw the patient at bedside this evening after she arrived to the floor. She she had just come out from PACU and was still somewhat somnolent appearing but was making appropriate eye contact and answering questions appropriately for me. She reported mild neck pain currently, improved from her prior baseline. Denies any numbness and tingling in her extremities. Denies any other acute concerns currently. [facility] Medical History (Updated 12/01/24 @ 08:42 by Roosevelt Alarcon) Neuropathy Swelling of lower extremity Shortness of breath on exertion Lupus Diabetes Depression Anxiety Wears glasses Wears dentures Cardiology follow-up encounter Current use of anticoagulant therapy Paroxysmal atrial fibrillation History of left heart catheterization (LHC) (~11/22/21) Atherosclerotic heart disease of [place] coronary artery without angina pectoris Abnormal stress test History of ST elevation myocardial infarction (STEMI) Decreased left ventricular function Essential hypertension Hyperlipidemia Former smoker Acute coronary syndrome Injury of fifth cervical spinal cord Spinal cord stimulator status Chronic pain Arthritis Depression GERD (gastroesophageal reflux disease) Insomnia Neuropathic pain Rheumatoid arthritis Osteoarthritis Morbid obesity Debility Home Medications ?Medication ?Instructions ?Recorded ?Last Taken ?Type cholecalciferol (vitamin D3) 50 2,000 unit PO DAILY vitamin 12/14/20 12/14/24 History mcg (2,000 unit) tablet (Vitamin D3) oxycodone-acetaminophen 7.5 mg-325 1 tab PO BID PRN Pain 12/16/20 Unknown History mg tablet metaxalone 800 mg tablet 400 - 800 mg PO TID PRN muscle 07/17/23 12/14/24 History spasm apixaban 5 mg tablet (Eliquis) 5 mg PO BID afib #60 tabs 01/21/24 12/06/24 Rx hydroxychloroquine 200 mg tablet 200 mg PO BID itching 04/06/24 12/14/24 History metformin 500 mg tablet,extended 500 mg PO DAILY diabetes 04/06/24 12/14/24 History release 24 hr paroxetine HCl 30 mg tablet 30 mg PO DAILY depression 04/06/24 07/24/24 History esomeprazole magnesium 40 mg 40 mg PO BID reflux 07/09/24 12/15/24 History capsule,delayed release famotidine 20 mg tablet 20 mg PO QHS PRN gerd 07/09/24 12/14/24 History methotrexate sodium 25 mg/mL 15 mg subcut WE RA 07/09/24 12/13/24 History injection solution naloxone 4 mg/actuation nasal spray 1 spray intranasal Q3M PRN overdose 07/10/24 Unknown History pyridoxine (vitamin B6) 100 mg 100 mg PO DAILY supplement 07/10/24 Unknown History tablet gabapentin 800 mg tablet 800 mg PO DAILY pain 07/24/24 12/14/24 History lisinopril 5 mg tablet 5 mg PO DAILY HTN #90 TABLETS 07/24/24 12/15/24 Rx tizanidine 2 mg tablet 2 mg PO Q6H PRN SPASMS 07/24/24 Unknown History potassium chloride 10 mEq 10 meq PO DAILY pr dr #90 caps 08/26/24 Unknown Rx capsule,extended release hair, skin, and nails 1 dose PO DAILY SUPPLEMENT 09/02/24 12/14/24 History lactobacillus combination no.9 4 4,000 mmu cells PO QDAY SUPPLEMENT 09/02/24 12/14/24 History billion cell capsule (Adult 50 Plus Probiotic) mecobalamin (vitamin B12) 1,000 1,000 mcg PO QDAY SUPPLEMENT 09/02/24 12/14/24 History mcg chewable tablet ondansetron 4 mg disintegrating 4 mg PO Q6 PRN nausea/vomiting 09/02/24 Unknown History tablet carvedilol 12.5 mg tablet 12.5 mg PO BID FOR HEART #180 tabs 09/17/24 12/15/24 Rx clobetasol 0.05 % topical ointment 1 applic topical .COMPLEX PRN 11/27/24 12/14/24 History itching hydroxyzine pamoate 25 mg capsule 25 - 50 mg PO TID PRN itching 11/27/24 12/14/24 History oxybutynin chloride 10 mg 10 mg PO QDAY pr dr 11/27/24 Unknown History tablet,extended release 24 hr pregabalin 150 mg capsule 150 mg PO BID pain 11/27/24 Unknown History atorvastatin 40 mg tablet 40 mg PO QHS cholesterol #90 tabs 12/02/24 12/14/24 Rx Allergy/AdvReac Type Severity Reaction Status Date / Time adhesive Allergy blisters Verified 12/01/24 08:16 pollen extracts Allergy ITCHY EYES Verified 12/01/24 09:04 codeine AdvReac Nausea Verified 12/01/24 08:16 Family History Father CAD (coronary artery disease) Other Heart disease Surgical History (Updated 12/01/24 @ 08:42 by Roosevelt Alarcon) H/O bilateral breast reduction surgery (~2009) H/O unilateral salpingectomy History of appendectomy Previous back surgery Social History household members: spouse housing: apartment Smoking Status: Former smoker ROS Constitutional Constitutional: Denies chills, fatigue, fever(s) or weakness Eyes Eyes: Denies change in vision Cardiovascular Cardiovascular: Denies chest pain Respiratory/Chest Respiratory/Chest: Denies shortness of breath at rest Gastrointestinal Gastrointestinal: Denies abdominal pain Neurologic Neurologic: Denies dizziness, focal weakness, headache(s), numbness or tingling Physical Exam Const alert, oriented x3 and no apparent distress Constitutional Narrative: Upper middle-aged female, class II obesity, alert and oriented but still somewhat somnolent appearing after recent procedure, neck brace is in place, otherwise sitting back comfortably in bed and in no acute distress. General Appearance: cooperative and comfortable Orientation / Consciousness: lethargic HEENT normocephalic, head/scalp atraumatic, hearing grossly normal bilaterally, nasal mucous membranes and turbinates normal and moist oral mucous membranes Eyes PERRL, EOMs intact bilaterally and conjunctivae normal Neck Neck Narrative: Neck brace in place. Chest inspection of chest normal Resp normal respiratory effort, normal air movement, no use of accessory muscles and clear to auscultation bilaterally Cardio regular rate, regular rhythm, no murmurs and peripheral pulses 2+ throughout GI normal to inspection, nondistended, normoactive bowel sounds, soft to palpation, non-tender and non-distended Back/Spine normal ROM Extremity normal to inspection, full ROM and no pedal edema Skin no rashes or lesions noted Neuro moves all extremities and no sensory deficits noted Psych mental status grossly normal Lab / Micro Data 12/04/24 12:42 12/04/24 12:42 Charges/Coding Visit Charges Inpatient E&M: 04829 Subs Hosp L2
--- NOTE | 2024-12-15 18:17 | NURSING ---
pt arrived to unit a&ox3. drowsy. o2 maintained. focus postop assessment completed. tongue midline states E no gross neurological deficits noted. pt staets pain tolerable. call light within reach.
[2024-12-15] MEDS: 0.9% Saline Lock 10 ML Syringe IV (20:06)
[2024-12-15] MEDS: Ensure Surgery 237 ML LIQUID PO (20:20)
[2024-12-15] MEDS: Cefazolin 2 GM in 0.9% Normal Saline (100mL Bag) 100 ML IV (21:20)
[2024-12-15] MEDS: Senna/Docusate Sodium 1 Tablet 2 TABLET PO (21:46)
[2024-12-16 02:36] VITALS: BP 149/71; PULSE 94; RESP 16; TEMP 36.8; O2SAT 99
[2024-12-16] MEDS: HYDROcodone Bitartrate/Apap 5/325 Tablet PO ×2 (02:38→09:43)
[2024-12-16 03:17] VITALS: BP 167/85; PULSE 93; RESP 15; TEMP 36.7; O2SAT 95
[2024-12-16] MEDS: 0.9% Saline Lock 10 ML Syringe IV ×2 (03:35→05:28)
[2024-12-16 04:25] VITALS: O2SAT 94
[2024-12-16] MEDS: Cefazolin 2 GM in 0.9% Normal Saline (100mL Bag) 100 ML IV (05:19)
--- NOTE | 2024-12-16 05:45 | RAD_ITS ---
PROCEDURE: CERV SPINE 2 OR 3 VIEWS 12/16/2024 REASON FOR EXAM: S/P CERVICAL FUSION TECHNIQUE: Cervical spine two views COMPARISON: September 10, 2024 FINDINGS: There is hardware fusion from C3-6 with intact hardware and anatomic alignment. Prevertebral soft tissues are within normal limits. The facets are aligned with the sclerosis noted. Osteopenia is present. Overlying tubing is present on the right. RAD/Cerv Spine 2 or 3 Views IMPRESSION: Hardware in position. Reading Location: [facility]
[2024-12-16 06:40] LABS: Hematocrit 32.0 % (37-47); Hemoglobin 10.0 g/dL (12.0-15.0); Immature Granulocytes Count 0.030 X10^3/uL (0.0-0.0); Mean Corp Hgb Conc 31.3 g/dL (32-36); Mean Corpuscular Volume 100.3 fL (81-99); Mean Platelet Vol. 8.4 fl (6.2-12.0); NRBC Flagged by Analyzer 0 % (0-5); POSITIVE DIFFERENTIAL YES; Platelet Count 193 K/mm3 (150-450); RBC Distribution Width CV 12.5 % (11.6-14.6); RBC Distribution Width SD 45.6 fl (35.1-43.9); Red Blood Count 3.19 M/mm3 (4.2-5.4); White Blood Count 9.1 K/mm3 (4.4-11.0)
[2024-12-16 07:10] LABS: Anion Gap 13 (5-15); BUN 25 mg/dL (4-19); BUN/Creat Ratio 35.7 RATIO (10-20); Calcium,Total 9.0 mg/dL (7.6-11.0); Carbon Dioxide 22.4 mmol/L (21.0-32.0); Chloride 102 mmol/L (98-108); Estimated Creatinine Clearance 78.98 ml/min (50-250); Glucose 208 mg/dL (70-99); Potassium 4.3 mmol/L (3.3-5.1)
--- NOTE | 2024-12-16 07:33 | DCINST_ITS ---
Discharge Instructions DC O2, CPAP, BIPAP needs Home O2 Discharge instructions: No Follow Up Care Test Results: Test results from this visit will be discussed in further detail at your follow- up appointment, if applicable. Discharge Plan Admission Admit Date/Time: 12/15/24 15:49 Attending Provider: Naresh Sanders Primary Care Provider: Keren Bustamante Consulting Providers: Antonio Ritchie; Cherelle Hernández; Iban Marcial; Iban Betancourt; Jose Reveles; Jeevan Calles; Jay Plascencia; Ros Melton; Josh Elizalde; Juliann Wills; Fausto Ernandez; Rc Landin; Adan Mendiola; Mitali Sanz; Rafa Christensen; Santi Pacheco Instructions Patient Instructions: Cervical Fusion Dc Additional Instructions / Restrictions: Keep Tegaderm and gauze clean and dry. After 5 days remove the Tegaderm and gauze and cover incision with a Band-Aid. Replace Band-Aid daily thereafter. Wear cervical collar full-time for the first 2 weeks. Eat soft solid foods as needed for dysphagia. Sleep in a recliner to help with swelling. No bending, lifting, twisting. Follow-up in clinic in 2 weeks. Discharge Orders/Prescriptions Prescriptions: New sennosides-docusate sodium [Stimulant Laxative Plus] 8.6-50 mg Tablet 2 tab PO BID PRN (Reason: constipation) Qty: 30 0RF methocarbamol 500 mg Tablet 750 mg PO TID PRN (Reason: pain/spasms) Qty: 60 0RF oxycodone 5 mg tablet 5 mg PO Q6H PRN (Reason: pain) 7 Days Qty: 28 0RF acetaminophen 500 mg capsule 500 mg PO Q6H Qty: 30 0RF ondansetron 4 mg tablet,disintegrating 4 mg PO Q6H PRN (Reason: nausea and vomiting) Qty: 30 0RF Continued mecobalamin (vitamin B12) 1,000 mcg tablet,chewable 1,000 mcg PO QDAY Adult 50 Plus Probiotic 4 billion cell capsule 4,000 mmu cells PO QDAY Rx Instructions: administer with a meal hair, skin, and nails 1 dose PO DAILY ondansetron 4 mg tablet,disintegrating 4 mg PO Q6 PRN (Reason: nausea/vomiting) pregabalin 150 mg capsule 150 mg PO BID hydroxyzine pamoate 25 mg capsule 25 - 50 mg PO TID PRN (Reason: itching) oxybutynin chloride 10 mg tablet extended release 24hr 10 mg PO QDAY cholecalciferol (vitamin D3) [Vitamin D3] 50 mcg (2,000 unit) tablet 2,000 unit PO DAILY gabapentin 800 mg tablet 800 mg PO DAILY Patient Comments: afternoon hydroxychloroquine 200 mg tablet 200 mg PO BID metformin 500 mg tablet extended release 24 hr 500 mg PO DAILY paroxetine HCl 30 mg tablet 30 mg PO DAILY methotrexate sodium 25 mg/mL solution 15 mg subcut WE famotidine 20 mg tablet 20 mg PO QHS PRN (Reason: gerd) esomeprazole magnesium 40 MG capsule 40 mg PO BID pyridoxine (vitamin B6) 100 mg tablet 100 mg PO DAILY Patient Comments: PT ONLY TAKES SPARINGLY naloxone 4 mg/actuation spray,non-aerosol 1 spray intranasal Q3M PRN (Reason: overdose) Rx Instructions: spray 1 dose into ONE nostril; alternate nostrils w each dose until help arrives clobetasol 0.05 % ointment 1 applic topical .COMPLEX PRN (Reason: itching) Rx Instructions: 1 applic topically 2-3x per week; PRN; lisinopril 5 mg tablet 5 mg PO DAILY Qty: 90 3RF potassium chloride 10 mEq capsule, extended release 10 meq PO DAILY Qty: 90 0RF carvedilol 12.5 mg tablet 12.5 mg PO BID Qty: 180 3RF Rx Instructions: must administer with a meal/food atorvastatin 40 mg tablet 40 mg PO QHS Qty: 90 3RF Held Eliquis 5 mg tablet 5 mg PO BID Qty: 60 11RF Hold Instructions: Resume on 12/18/24. Discontinued metaxalone 800 mg tablet 400 - 800 mg PO TID PRN (Reason: muscle spasm) oxycodone-acetaminophen 7.5-325 mg tablet 1 tab PO BID PRN (Reason: Pain) tizanidine 2 mg Tablet 2 mg PO Q6H PRN (Reason: SPASMS) Other Ambulatory Orders: 12 Lead EKG (Routine) Timeframe: 20241202 Location: None Selected Ordered By: Dr. Naresh Sanders Referrals / Follow Up: Keren Bustamante MD [Primary Care Provider] - Disposition Disposition (needs filled in before D/C Order can be placed): Home, Self Care
[2024-12-16] MEDS: Ensure Surgery 237 ML LIQUID PO (09:44)
[2024-12-16] MEDS: Senna/Docusate Sodium 1 Tablet 2 TABLET PO (09:46)
--- NOTE | 2024-12-16 10:36 | PCM.PROGNOTE ---
Subjective Subjective Patient seen and examined. I saw her with her nurse by her bedside. She had no active complaints. Pain is really well-controlled. Review of systems otherwise negative. Objective Data Objective Data Vital Signs: Vital Signs Temp Pulse Resp BP Pulse Ox O2 Del Method O2 Flow Rate 98.1 F 93 15 167/85 H 94 Room Air 2 12/16/24 03:17 12/16/24 03:17 12/16/24 03:17 12/16/24 03:17 12/16/24 04:25 12/16/24 04:12/15/24 21:56 Oxygen Flow Rate (L/min) 2 Oxygen Delivery Method Room Air Weight: 185 lb 3.013 oz Body Mass Index (BMI) 36.1 Intake & Output: Intake and Output for Last 24 Hours 12/14/24 12/15/24 12/16/24 23:59 23:59 23:59 Intake Total 1813 510 / 510 Output Total 50 / 50 800 / 800 Balance 1763 -290 / -290 Lab / Micro Data 12/16/24 06:22 12/16/24 06:22 Labs: Laboratory Results - last 24 hr 12/15/24 23:02: POC Glucose 166 H 12/16/24 06:22: WBC 9.1, RBC 3.19 L, Hgb 10.0 L, Hct 32.0 L, MCV 100.3 H, MCH 31.3, MCHC 31.3 L, RDW Std Deviation 45.6 H, RDW Coeff of [place] 12.5, Plt Count 193, MPV 8.4, Immature Gran % (Auto) 0.300, Neut % (Auto) 89.9 H, Lymph % (Auto) 4.9 L, [place] % (Auto) 4.9, Eos % (Auto) 0.0, Baso % (Auto) 0.0, Absolute Neuts (auto) 8.2 H, Absolute Lymphs (auto) 0.44 L, Nucleated RBC % 0, Sodium 138, Potassium 4.3, Chloride 102, Carbon Dioxide 22.4, Anion Gap 13, BUN 25 H, Creatinine 0.71, Estim Creat Clear Calc 78.98, Est GFR (MDRD) Non-Af 97, BUN/Creatinine Ratio 35.7 H, Glucose 208 H, Calcium 9.0 12/16/24 06:47: POC Glucose 190 H Micro: Microbiology 12/04/24 12:42 Swab (Method) Nasal Screen MRSA/MSSA - Final Radiography Diagnostic Testing: Radiology Impression Cervical Spine X-Ray 12/15/24 12:45 IMPRESSION: As above. Disclaimer: Reading Location: [facility] Cervical Spine X-Ray 12/16/24 05:45 IMPRESSION: Hardware in position. Reading Location: [facility] Physical Exam Const alert, oriented x3 and no apparent distress Constitutional Narrative: class II obesity HEENT normocephalic, head/scalp atraumatic, moist oral mucous membranes and oropharynx normal Neck no JVD Neck Narrative: in neck brace. Anterior neck dressing intact Lymph Lymphatic: no lymphedema noted Resp normal respiratory effort, normal air movement and clear to auscultation bilaterally Cardio regular rate, regular rhythm, S1 normal heart sound, S2 normal heart sound and no murmurs GI normal to inspection, nondistended, normoactive bowel sounds, soft to palpation, non-tender and non-distended Extremity normal capillary refill, no clubbing, cyanosis or edema and no calf tenderness General Extremity: no tenderness to palpation of joints or extremities Skin General Skin Exam: no breakdown Neuro no focal motor deficits and no sensory deficits noted Motor Exam: general weakness Psych thought process normal, cooperative and affect normal Appearance: appropriate Assessment & Plan Assessment/Plan (1) Cervical myelopathy: (2) Atherosclerotic heart disease of [place] coronary artery without angina pectoris: QUALIFIERS: [place] vs. transplanted heart: [place] heart Qualified Code(s): I25.10 - Atherosclerotic heart disease of [place] coronary artery without angina pectoris (3) Hyperlipidemia: QUALIFIERS: Hyperlipidemia type: pure hypercholesterolemia Qualified Code(s): E78.00 - Pure hypercholesterolemia, unspecified PLAN: Plan #Cervical stenosis with degeneration and radiculomyelopathy has had priof C5-C6 fusion. Presented with chronic pain syndrome with neuropathy. s/p C3-4 and C4-5 cervical fusion on 12/15. management as per spine surgery. PT/OT on board. Incentive spirometry. #paroxysmal afib: on carvedilol. eliquis on hold. to resume when ok with primary service spine surgery. #History of CAD with stents: on high intensity statin. #Hypertension:on carvedilol and lisinopril. #Hyperlipidemia: on statin #Rheumatoid arthritis: on hydroxychloroquine and weekly methotrexate. #Overactive bladder: on oxybutynin. #Depression; on paxil #Type 2 diabetes mellitus: on metformin. ISS. Accuchecks ACHS. Currently on IV dexamethasone per primary service which will likely cause hyperglycemia. #Anemia: stable. Hb is ~ 10. #GERD: on PPI DVT prophylaxis; SCDs. Resume eliquis when ok with orthopedics. Charges/Coding Visit Charges Inpatient E&M: 66194 Subs Hosp L2
--- NOTE | 2024-12-16 10:39 | CASEMGMT ---
Noted no therapy recommended for PT and OT evals. RN CM into pt room, pt lying in bed in no distress with nurse at bedside. Pt states she feels safe to return home. Pt has all DME needed. Pt has a male she lives with but does not help much with ADL/IADLs. Pt denies any homegoing needs at this time.
--- NOTE | 2024-12-16 13:08 | PCM.PN.ORT ---
Subjective Subjective Patient is postop day 1 C3-5 ACDF. Patient is doing well postoperatively with her pain well-controlled. Patient has been up and walking and has been walking with therapy who is cleared her for home discharge. She denies any significant dysphagia. Patient states that nursing had to change the dressing approximately [address] Sanders. Objective Data Objective Data Vital Signs: Vital Signs Temp Pulse Resp BP Pulse Ox O2 Del Method O2 Flow Rate 98.1 F 93 15 167/85 H 94 Room Air 2 12/16/24 03:17 12/16/24 03:17 12/16/24 03:17 12/16/24 03:17 12/16/24 04:25 12/16/24 11:00 12/15/24 21:56 Oxygen Flow Rate (L/min) 2 Oxygen Delivery Method Room Air Weight: 185 lb 3.013 oz Body Mass Index (BMI) 36.1 Intake & Output: Intake and Output for Last 24 Hours 12/14/24 12/15/24 12/16/24 23:59 23:59 23:59 Intake Total 1813 510 / 510 Output Total 50 / 50 800 / 800 Balance 1763 -290 / -290 Lab / Micro Data 12/16/24 06:22 12/16/24 06:22 Labs: Laboratory Results - last 24 hr 12/15/24 23:02: POC Glucose 166 H 12/16/24 06:22: WBC 9.1, RBC 3.19 L, Hgb 10.0 L, Hct 32.0 L, MCV 100.3 H, MCH 31.3, MCHC 31.3 L, RDW Std Deviation 45.6 H, RDW Coeff of [place] 12.5, Plt Count 193, MPV 8.4, Immature Gran % (Auto) 0.300, Neut % (Auto) 89.9 H, Lymph % (Auto) 4.9 L, [place] % (Auto) 4.9, Eos % (Auto) 0.0, Baso % (Auto) 0.0, Absolute Neuts (auto) 8.2 H, Absolute Lymphs (auto) 0.44 L, Nucleated RBC % 0, Sodium 138, Potassium 4.3, Chloride 102, Carbon Dioxide 22.4, Anion Gap 13, BUN 25 H, Creatinine 0.71, Estim Creat Clear Calc 78.98, Est GFR (MDRD) Non-Af 97, BUN/Creatinine Ratio 35.7 H, Glucose 208 H, Calcium 9.0 12/16/24 06:47: POC Glucose 190 H 12/16/24 11:40: POC Glucose 167 H Micro: Microbiology 12/04/24 12:42 Swab (Method) Nasal Screen MRSA/MSSA - Final Radiography Diagnostic Testing: Radiology Impression Cervical Spine X-Ray 12/15/24 12:45 IMPRESSION: As above. Disclaimer: Reading Location: [id number] Cervical Spine X-Ray 12/16/24 05:45 IMPRESSION: Hardware in position. Reading Location: [facility] Physical Exam Narrative Neurological exam of the upper extremities shows 5X5 power. Normal sensation across all dermatomes. Drain removed. Const alert, oriented x3 and no apparent distress Assessment & Plan Assessment/Plan (1) Status post cervical spinal fusion: PLAN: Plan Postop day 1 C3-5 fusion. Patient has been up and walking with PT who has cleared her. Obtained reviewed x-rays today which show hardware and bone graft in good position. Educated and reviewed on the use of the incentive spirometer. Educated and reviewed on the proper wear of the cervical collar and how to adjust it. Reviewed restrictions of no bending, lifting, twisting. Ongoing meds include oxycodone, acetaminophen, meloxicam, methocarbamol, Zofran, senna. OARRS reviewed. She will follow-up in the clinic in 2 weeks. Patient is in agreement.
== END 2024-12-16 12:51 | disposition home or self-care (01) ==
LOC: SDC 16:20 → MS3 16:20
PROVIDERS: Anesthesiology; Student in an Organized Health Care Education/Training Program; Admitting Provider Orthopaedic Surgery Orthopaedic Surgery of the Spine; PCP Internal Medicine; Referring Provider Orthopaedic Surgery Orthopaedic Surgery of the Spine; Visit Provider Orthopaedic Surgery Orthopaedic Surgery of the Spine
PROC: (CPT 22551; principal; 2024-12-15 11:30)
DX: M50.01 Cervical disc disorder with myelopathy, high cervical region (principal); M06.9 Rheumatoid arthritis, unspecified; I48.0 Paroxysmal atrial fibrillation; M32.9 Systemic lupus erythematosus, unspecified; E11.40 Type 2 diabetes mellitus with diabetic neuropathy, unspecified; M50.020 Cervical disc disorder with myelopathy, mid-cervical region, unspecified level; I25.10 Atherosclerotic heart disease of native coronary artery without angina pectoris; Z79.01 Long term (current) use of anticoagulants; E78.00 Pure hypercholesterolemia, unspecified; G89.4 Chronic pain syndrome; K21.9 Gastro-esophageal reflux disease without esophagitis; Z87.891 Personal history of nicotine dependence; Z79.899 Other long term (current) drug therapy; Z79.84 Long term (current) use of oral hypoglycemic drugs; I10 Essential (primary) hypertension; I25.2 Old myocardial infarction; Z98.1 Arthrodesis status; N32.81 Overactive bladder; F32.A Depression, unspecified; D64.9 Anemia, unspecified; M48.02 Spinal stenosis, cervical region; M54.12 Radiculopathy, cervical region; M85.88 Other specified disorders of bone density and structure, other site
CPT/HCPCS: 22551; 22552; 22853; 22845; 20930; 20931; 00670; 36415; 72040; 76000; 80048; 82962; 83036; 83735; 85025; 86703; 86706; 86708; 86803; 86850; 86900; 86901; 87081; 93005; 94668; 96365; 96366; 96375; 96376; 97162; 97166; 99221; 99406; A4648; C1713; A4216; G0378; J2405

== ENCOUNTER 2025-02-09 13:00 | Outpatient (RCR) | payer MEDICARE, MEDICAID, SELFPAY ==
[2024-12-29 11:04] VITALS: BMI 34.4
--- NOTE | 2025-01-13 14:23 | HP.PTEVAL_ITS ---
Patient's Visit Information Visit Information Visit Information: PARADISE FAUST is a 64 year old F referred to Physical Therapy by Dr. Naresh Sanders MD with a diagnosis of ARTHRODESIS STATUS. Date of Evaluation: 01/13/25 Physical Therapist: Wesley Gurrola, PT, Cert MDT, OCS Visit Plan Frequency: 2x /Week Duration: 4 Weeks Plan: -s/p C3-4 ACDF with plate instrumentation, C4-5 stand-alone ACDF, attem pted removal of previous C5-6 plate ON Dec 15 -no bending/tilting/lifting -no lifting > 5# -wean collar PT INTERVTIONS CERVICAL ROM ,CERVICAL ISOMETRICS ,POSTURAL EX'S ,BUE STRENGTHENING AND ACTIVITY MODIFICATION Subjective Subjective: This 64 y/o female presents to physical therapy with s/p cervical fusion Dec 15 at [facility] by DR Sanders with [place] [employer]. Patient had s/p C3-4 ACDF with plate instrumentation, C4-5 stand-alone ACDF, attempted removal of previous C5-6 plate .Patient had cervical fusion 2001.Patient continue to wear the cervi beatriz collar for two more weeks then she can slowly start to wean off of it. She may start PT in two weeks once she starts to wean from the collar. She needs to continue to follow all post operative restrictions ,no bending, lifting,twisting and lifting no more than 5#.Patient seen DR Mendez/2 start PT in 2 weeks ,x-rays looked.Bone uses bone stimulator for 9months 4 hrs /day. Patient had some difficulty swallowing . C/o paresthesia/tingling in neck. Denies JASON occasional ,denies dizziness/nausea /tinnitus. No pain medication.Patient has has had pain management in past. Patient condition affects QOL and function. 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 Pain Bilateral Neck: Pain Intensity (Out of 10): 2 Pain Intensity Range: 8 Objective Objective: POSTURE: mild forward posture ,modn thoracic kyphosis ,.head tilted to right GAIT: reciprocal pattern mild forward posture NEURO: c/o paresthesia/tingling right side neck ,reflexes C5-6-7 1/ AROM BUE: WFL CERVICAL ROM: min loss ,extension mod /severe ,lateral flexion mod /severe loss ,rotation mod loss MMT: BUE grossly 4/5 [employer]ICE STRENGTH: GOOD Special Tests C/S Radiculapathy - Left Upper limb tension test: Negative C/S Radiculapathy - Right Upper limb tension test: Negative Vertebral Artery Test: Negative Balance/Special Test Scores Oswestry Neck Score: 24 Goals Goal 1:: Patient to be I with HEP for cervical fusion Goal Time Frame: 4-6 Weeks Goal 2:: 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 Goal Time Frame: 4-6 Weeks Goal 3:: Patient to improve neck oswestry score by 3-5 points to improve QOL and function. Goal Time Frame: 4-6 Weeks Goal 4:: Patient to demonstrate 50% improvement with less pain and improved function Goal Time Frame: 4-6 Weeks Rehabilitation Potential Physical Therapy Diagnosis: Patient underwent s/p C3-4 ACDF with plate instrumentation, C4-5 stand-alone ACDF, attempted removal of previous C5-6 plate with decrease cervical ROM ,weakness thus benefit from skilled PT Rehabilitation Potential: Good Anticipated Interventions Patient/Client Instruction: Educate patient on: Condition and Plan of Care For the Purpose of:: To decrease pain, To increase ROM, To improve muscle performance and motor function, To improve ability to perform ADL's, To increase tolerance to activity/condition/position, To improve ability of physical actions for home/community/work/leisure, To improve health of tissue, To decrease soft tissue restriction, To increase flexibility/ROM and To improve tolerance to ADL's Therapeutic Exercise to Include: Strength training, Postural training, Flexibilty training and Active ROM Comment: BUE For the Purpose of:: To decrease pain, To increase ROM, To improve muscle performance and motor function, To improve ability to perform ADL's, To increase tolerance to activity/condition/position, To improve ability of physical actions for home/community/work/leisure, To improve health of tissue, To decrease soft tissue restriction, To increase flexibility/ROM and To improve tolerance to ADL's Text: Thank you for the opportunity to evaluate your patient. For Medicare and Medicare HMO plans, please review the plan of care and approve it. It will need to be FAXED BACK to us at [phone] for Medicare purposes. For Medicare only, by signing this I certify the plan of care. Please let me know if there are questions or concerns regarding this plan of care. Physician Signature: Date:
--- NOTE | 2025-02-09 13:30 | HP.PTDCSUM ---
Discharge Summary D/C summary: It has been my pleasure to treat PARADISE FAUST referred by Dr. Naresh Sanders MD, with the diagnosis of ARTHRODESIS STATUS for a total of 6 visit(s). Discharge Date: 02/09/25 Please see the following information for a summary of their discharge status. Subjective Subjective: Doing great no pain No problem with swallowing Pain Bilateral Neck: Pain Intensity (Out of 10): 0 Overall Improvement % Improvement: 100 Objective Objective/Function: POSTURE: mild forward posture ,modn thoracic kyphosis ,.head tilted to right GAIT: reciprocal pattern mild forward posture NEURO: c/o paresthesia/tingling right side neck ,reflexes C5-6-7 1/ AROM BUE: WFL CERVICAL ROM: min loss ,extension min ,lateral flexion WFL RIGHT ,LEFT MOD LOSS s ,rotation mod loss MMT: BUE grossly 4/5 [employer] STRENGTH: GOOD Goals Goal 1:: Patient to be I with HEP for cervical fusion Goal Progress: Goal Met Goal 2:: 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 Goal Progress: Goal Met Goal 3:: Patient to improve neck oswestry score by 3-5 points to improve QOL and function. Goal Progress: Goal Met Goal 4:: Patient to demonstrate 50% improvement with less pain and improved function Goal Progress: Goal Met Plan Plan: D/C D/C Information Discharge Comments: HEP d/c sentence: If there are questions or concerns regarding this patient's physical therapy, please feel free to call me at [phone]. Thank you for the referral of this patient. Sincerely, Wesley Gurrola, PT, Cert MDT, OCS Balance/Gait/Functional tests Balance/Special Test Scores Oswestry Neck Score: 0 Improvement % Improvement: 100
== END 2025-02-09 19:00 | disposition home or self-care (01) ==
LOC: PT 13:00
PROVIDERS: PCP Internal Medicine; Referring Provider Orthopaedic Surgery Orthopaedic Surgery of the Spine; Visit Provider Orthopaedic Surgery Orthopaedic Surgery of the Spine
DX: Z98.1 Arthrodesis status (principal)
CPT/HCPCS: 97110; 97162; 97530

== ENCOUNTER → 2025-04-07 | Outpatient (CLI) | payer MEDICARE, MEDICAID, SELFPAY ==
[2024-12-29 11:04] VITALS: BMI 34.4
--- NOTE | 2025-04-07 12:22 | MRI_ITS ---
PROCEDURE: SPINE LUMBAR W/WO CONTRAST 04/07/2025 REASON FOR EXAM: PAIN, HX OF FUSION, STENOSIS, LEFT SIDED SX TECHNIQUE: Procedure Code: [id number] Modality: MR Procedure: SPINE LUMBAR W/WO CONTRAST Multiplanar and multisequence images were obtained without and with intravenous gadolinium-based contrast administration. CONTRAST: Clariscan VOLUME: 17 mL COMPARISON: Lumbar spine x-ray 04/02/2025. FINDINGS: Vertebrae: Preserved in height and signal. Alignment: Normal alignment. Conus Medullaris: Normal. T12-L1: Disc desiccation. Disc bulge. Facet joint arthropathy. Mild bilateral foramina stenosis. Moderate canal stenosis. L1-2: Desiccation. Disc bulge. Facet joints arthropathy. Moderate canal stenosis. Moderate bilateral foramina stenosis. L2-3: Disc desiccation. Disc bulge. Facet joints arthropathy. Ligamentum flavum hypertrophy. Severe bilateral foramina stenosis. Severe canal stenosis. L3-4: Disc desiccation. Disc bulge. Facet joint arthropathy. Moderate bilateral foramina stenosis. Severe canal stenosis. L4-5: Status post laminectomies and posterior fusion. No abnormal enhancement. No significant foramina stenosis. L5-S1: Status post laminectomies and posterior fusion. No abnormal enhancement. No significant foramina stenosis. Sacrum: Unremarkable. Postcontrast images: A 2.3 x 1.7 x 2.0 cm peripherally enhancing soft tissue fluid collection at L4-L5 level without evidence of extension to the thecal sac may represent small abscess. No further evidence of acute infectious process in the surgical bed or in the lumbar canal. No epidural soft tissue thickening. MRI/Spine Lumbar W/WO Contrast IMPRESSION: A 2.3 x 1.7 x 2.0 cm peripherally enhancing soft tissue fluid collection at L4- L5 level without evidence of extension to the thecal sac may represent small abscess. No further evidence of acute infectiou s process in the surgical bed or in the lumbar canal. No epidural soft tissue thickening. Postsurgical changes and multilevel degenerate changes predominantly for severe canal stenosis at the adjacent levels L2-L3 and L3-L4. The remainder levels are as detailed. No abnormal enhancement or acute infecti ous process. Reading Location: [id number]
== END | disposition home or self-care (01) ==
LOC: MRI 12:20
PROVIDERS: PCP Internal Medicine; Referring Provider Student in an Organized Health Care Education/Training Program; Visit Provider Student in an Organized Health Care Education/Training Program
DX: M48.062 Spinal stenosis, lumbar region with neurogenic claudication (principal); S32.030A Wedge compression fracture of third lumbar vertebra, initial encounter for closed fracture; X58.XXXA Exposure to other specified factors, initial encounter; Z98.1 Arthrodesis status
CPT/HCPCS: 72158; A9575

== ENCOUNTER → 2025-04-21 | Outpatient (CLI) | payer MEDICARE, MEDICAID, SELFPAY ==
[2024-12-29 11:04] VITALS: BMI 34.4
--- NOTE | 2025-04-21 10:54 | BD_ITS ---
PROCEDURE: DEXA BONE DENSITY STUDY 04/21/2025 REASON FOR EXAM: OSTEOPOROSIS F, age 64 y/o . Postmenopausal. TECHNIQUE: Procedure Code: [id number] Modality: DX Procedure: DEXA BONE DENSITY STUDY COMPARISON: None FINDINGS: BMD and T-SCORES Lumbar spine: 0.898 g/cm2, T-score -1.1 Levels: L1 through L3 Left femoral neck: 0.531 g/cm2, T-score -2.9 Left total hip: 0.669 g/cm2, T-score -2.2 Right femoral neck: 0.604 g/cm2, T-score -2.2 Right total hip: 0.681 g/cm2, T-score -2.1 The World Health Organization has defined the following categories based on bone density: Normal bone density: T-score equal to or greater than -1.0 Osteopenia: T-score between -1.0 and -2.5 Osteoporosis: T-score equal to or less than -2.5 FRAX (or Comparable) Fracture Risk Assessment: 10 Year Probability of Fracture: Major Osteoporotic Fracture: 39% Hip Fracture: 12% (Note: FRAX is not to be reported in setting of normal range bone density, osteoporosis on DEXA, known history of osteoporosis, prior osteoporotic hip or vertebral fracture, or for any patient undergoing pharmacological treatment for bone loss.) The National Osteoporosis Foundation (NOF) recommends pharmacological treatment for patients with a FRAX 10-year risk of 3% or higher for a hip fracture, or 20% or higher for a major osteoporotic fracture, to prevent osteoporosis and reduce fracture risk. The patient does meet the pharmacological treatment recommendations for prevention of osteoporosis. BD/Dexa Bone Density Study IMPRESSION: OSTEOPOROSIS. Recommend follow-up in 1 year. Reading Location: [id number]
== END | disposition home or self-care (01) ==
LOC: OPBD 10:48
PROVIDERS: PCP Internal Medicine; Referring Provider Student in an Organized Health Care Education/Training Program; Visit Provider Student in an Organized Health Care Education/Training Program
DX: M81.0 Age-related osteoporosis without current pathological fracture (principal)
CPT/HCPCS: 77080